=== PATIENT | male | born 1955 | race Caucasian/White ===

== ENCOUNTER 2017-06-28 12:52 | Inpatient (IN) | payer MEDICARE, OTHER ==
[~2017-06-28] VITALS: Ht 182.9 cm; Wt 142.0 kg
[2017-06-28] VITALS (10 sets, daily range): BP systolic 101–144; BP diastolic 72–97; PULSE 80–171; RESP 18–24; TEMP 98.4; O2SAT 91–98
[~2017-06-28 12:52] MED LIST: ALPR.25 PO; CHLO25CA PO; FOLI1TAB PO; HYDR-2951; METO50TA PO; MOBI15TA OR; TAB-TAB PO; THIA50CA PO
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
[2017-06-28] MEDS ORDERED: LORazepam 2 MG/ML VIAL IV PUSH ONE (13:30)
[2017-06-28] MEDS ORDERED: DILTIAZEM HCL 25 MG/5 ML VIAL IV ONE ×2 (13:30)
--- NOTE | 2017-06-28 13:38 | RADRPT ---
EXAM DATE/TIME: 06/28/2017 13:21 [facility] COMPARISON: No previous studies available for comparison. INDICATIONS : Shortness of breath. MEDICAL HISTORY : Hypertension. Myocardial infarction. SURGICAL HISTORY : Coronary artery stent. ENCOUNTER: Initial ACUITY: 1 day PAIN SCORE: 0/10 LOCATION: Bilateral chest FINDINGS: Portable AP view of the chest demonstrates cardiac silhouette size at the upper limits for normal lester cification of the aorta. There is a small right basilar pleural-parenchymal opacity. No pneumothorax is visualized. Bones and soft tissues demonstrate no acute finding. CONCLUSION: Small right pleural effusion with associated volume loss and/or consolidation at the right lung base. Cole Garcia MD on June 28, 2017 at 13:36 Board Certified Radiologist. This report was verified electronically.
[2017-06-28 14:10] LABS: AUTOMATED NEUTROPHIL # 10.4 TH/MM3 (1.8-7.7); BASOPHIL # 0.1 TH/MM3 (0-0.2); BASOPHIL % 0.9 % (0.0-2.0); EOSINOPHIL # 0.1 TH/MM3 (0-0.4); EOSINOPHIL % 0.6 % (0.0-4.0); HEMATOCRIT 43.4 % (39.0-51.0); HEMO FLAGS DIFF FINAL; LYMPH % 7.8 % (9.0-44.0); MEAN CELL VOLUME 85.2 FL (80.0-100.0); MEAN CORPUSCULAR HEMOGLOBIN 26.5 PG (27.0-34.0); MEAN CORPUSCULAR HGB CONC 31.1 % (32.0-36.0); MONO % 7.6 % (0.0-8.0); NEUT % 83.1 % (16.0-70.0); PLATELET COUNT 274 TH/MM3 (150-450); RED BLOOD COUNT 5.09 MIL/MM3 (4.50-5.90); RED CELL DISTRIBUTION WIDTH 17.5 % (11.6-17.2); WHITE BLOOD COUNT 12.5 TH/MM3 (4.0-11.0)
[2017-06-28] MEDS ORDERED: DILTIAZEM HCL 25 MG/5 ML VIAL IV PUSH PRN (14:15)
[2017-06-28 14:38] LABS: ALKALINE PHOSPHATASE 107 U/L (45-117); ALT (GPT) 21 U/L (12-78); ANION GAP 7 MEQ/L (5-15); AST (GOT) 25 U/L (15-37); BICARBONATE 26.4 MEQ/L (21.0-32.0); BLOOD UREA NITROGEN 14 MG/DL (7-18); CHLORIDE 107 MEQ/L (98-107); GLOMERULAR FILTRATION RATE 71 ML/MIN (>89); MAGNESIUM 2.3 MG/DL (1.5-2.5); POTASSIUM 4.4 MEQ/L (3.5-5.1); SODIUM (NA) 140 MEQ/L (136-145); TOTAL BILIRUBIN ADULT 0.5 MG/DL (0.2-1.0)
[2017-06-28 14:50] LABS: ALCOHOL LESS THAN 3 MG/DL (0-5); CREATINE KINASE 57 U/L (39-308)
[2017-06-28] MEDS: DILTIAZEM INJ 125 MG in SODIUM CHLORIDE 0.9% INJ 100 ML IV PRN ×4 (15:32→22:45)
[2017-06-28] MEDS ORDERED: VANCOMYCIN INJ 1,000 MG in SODIUM CHLOR 0.9% 250 ML INJ 250 ML IV ONE (16:00)
[2017-06-28] MEDS ORDERED: PIPERACIL-TAZO 3.375 GM PREMIX 50 ML IV ONE (16:00)
[2017-06-28] MEDS ORDERED: IOHEXOL 350 MG/ML 10 ML VIAL (for RAD DIAG) IVCONTRAST ONE (16:19)
--- NOTE | 2017-06-28 16:36 | RADRPT ---
EXAM DATE/TIME: 06/28/2017 15:58 [facility] COMPARISON: No previous studies available for comparison. INDICATIONS : Shortness of breath for a few days. IV CONTRAST: 73 cc Omnipaque 350 (iohexol) IV RADIATION DOSE: 23.90 CTDIvol (mGy) MEDICAL HISTORY : Myocardial infarction. Hypertension. SURGICAL HISTORY : cardiac stent placement ENCOUNTER: Initial ACUITY: 1 day PAIN SCALE: 0/10 LOCATION: Bilateral chest TECHNIQUE: Volumetric scanning of the chest was performed using a pulmonary embolism protocol MIP images were re constructed. Using automated exposure control and adjustment of the mA and/or kV according to patien t size, radiation dose was kept as low as reasonably achievable to obtain optimal diagnostic quality images. DICOM format image data is available electronically for review and comparison. Follow-up recommendations for detected pulmonary nodules are based at a minimum on nodule size and pa tient risk factors according to Fleischner Society Guidelines. FINDINGS: The examination is of good diagnostic quality. No pulmonary embolus is identified. There is a large right pleural effusion. There is consolidation of the right lower lobe. The left aye g is clear. The heart is normal in size. There is no significant hilar or mediastinal adenopathy. No paracardial effusion is evident. The visualized portions of upper abdomen demonstrate a small amount of ascites adjacent to the latera l margin of the liver. The visualized bony structures are grossly intact. CONCLUSION: 1. No pulmonary embolus identified. 2. Large right-sided pleural effusion with consolidation of the right lower lobe. Srikanth Ware MD on June 28, 2017 at 16:32 Board Certified Radiologist. This report was verified electronically.
[2017-06-28] MEDS ORDERED: THIAMINE INJ 100 MG in SODIUM CHLORIDE 0.9% INJ 100 ML IV ONE (17:00)
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
[2017-06-28] MEDS ORDERED: LACTULOSE SYRUP 20 GM/30 ML CUP PO PRN (17:15)
[2017-06-28] MEDS ORDERED: SODIUM CHLORIDE 0.9% FLUSH 10 ML FLUSH IV FLUSH PRN (17:15)
[2017-06-28] MEDS ORDERED: ONDANSETRON HCL 4 MG/2 ML VIAL IVP PRN (17:15)
[2017-06-28] MEDS ORDERED: BISACODYL 10 MG SUPP RECTAL PRN (17:15)
[2017-06-28] MEDS ORDERED: ACETAMINOPHEN 325 MG TAB PO PRN (17:15)
[2017-06-28] MEDS ORDERED: NALOXONE HCL 0.4 MG/ML AMP IV PUSH PRN (17:15)
[2017-06-28] MEDS ORDERED: SENNOSIDES 8.6 MG TAB PO PRN (17:15)
[2017-06-28] MEDS ORDERED: MAGNESIUM HYDROXIDE SUSP 30 ML CUP PO PRN (17:15)
[2017-06-28] MEDS ORDERED: SODIUM CHLOR 0.9% 1000 ML INJ 1,000 ML IV SCH (18:00)
[2017-06-28] MEDS ORDERED: METOPROLOL TARTRATE 25 MG TAB PO SCH (19:00)
[2017-06-28] MEDS: RESP: IPRATROPIUM 0.5 MG/2.5 ML NEB NEB SCH (19:25)
[2017-06-28] MEDS: ENOXAPARIN SODIUM 150 MG/ML SYRINGE SQ SCH (19:58)
[2017-06-28 20:11] LABS: BLOOD, URINE NEG (NEG); COMMENT (UR) CULT NOT INDICATED; CULTURE IF INDICATED CULT NOT INDICATED; GLUCOSE,URINE NEG (NEG); KETONE, URINE TRACE mg/dL (NEG); MUCUS URINE FEW /lpf (OCC); NITRITE,URINE NEG (NEG); URINE COLOR YELLOW (YELLW/STRAW)
[2017-06-28 20:38] LABS: CREATINE KINASE 64 U/L (39-308)
[2017-06-28] MEDS: SODIUM CHLORIDE 0.9% FLUSH 10 ML FLUSH IV FLUSH SCH (21:00)
[2017-06-28] MEDS: guaiFENesin E.R. 600 MG TAB PO SCH (22:41)
[2017-06-28] MEDS: DOCUSATE SODIUM 50 MG/SENNA 8.6 MG TAB PO SCH (22:41)
[2017-06-29] VITALS (30 sets, daily range): BP systolic 101–124; BP diastolic 58–97; PULSE 66–121; RESP 20; TEMP 97.6–98.8; O2SAT 96–98
[2017-06-29] MEDS: RESP: IPRATROPIUM 0.5 MG/2.5 ML NEB NEB SCH ×5 (05:21→19:49)
[2017-06-29] MEDS: ENOXAPARIN SODIUM 150 MG/ML SYRINGE SQ SCH ×2 (06:00→17:39)
[2017-06-29 06:48] LABS: AUTOMATED NEUTROPHIL # 10.1 TH/MM3 (1.8-7.7); BASOPHIL # 0.1 TH/MM3 (0-0.2); BASOPHIL % 0.6 % (0.0-2.0); EOSINOPHIL # 0.1 TH/MM3 (0-0.4); EOSINOPHIL % 0.7 % (0.0-4.0); HEMATOCRIT 38.3 % (39.0-51.0); HEMO FLAGS DIFF FINAL; LYMPH % 9.2 % (9.0-44.0); LYMPHOCYTE # 1.1 TH/MM3 (1.0-4.8); MEAN CORPUSCULAR HEMOGLOBIN 26.3 PG (27.0-34.0); MEAN CORPUSCULAR HGB CONC 30.9 % (32.0-36.0); MONO % 8.3 % (0.0-8.0); NEUT % 81.2 % (16.0-70.0); PLATELET COUNT 256 TH/MM3 (150-450); RED BLOOD COUNT 4.51 MIL/MM3 (4.50-5.90); RED CELL DISTRIBUTION WIDTH 17.5 % (11.6-17.2); WHITE BLOOD COUNT 12.4 TH/MM3 (4.0-11.0)
[2017-06-29 06:59] LABS: INTERNATIONAL NORMALIZED RATIO 1.1 RATIO; PROTHROMBIN TIME - PATIENT 12.1 SEC (9.8-11.6)
[2017-06-29 07:02] LABS: ALT (GPT) 20 U/L (12-78); ANION GAP 6 MEQ/L (5-15); AST (GOT) 15 U/L (15-37); BICARBONATE 27.4 MEQ/L (21.0-32.0); BLOOD UREA NITROGEN 12 MG/DL (7-18); CHLORIDE 107 MEQ/L (98-107); GLOMERULAR FILTRATION RATE 81 ML/MIN (>89); POTASSIUM 3.8 MEQ/L (3.5-5.1); SODIUM (NA) 140 MEQ/L (136-145)
[2017-06-29 07:05] LABS: ALKALINE PHOSPHATASE 92 U/L (45-117); TOTAL BILIRUBIN ADULT 0.5 MG/DL (0.2-1.0)
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
--- NOTE | 2017-06-29 08:30 | MB ---
cc: BLAIR KRISHNAMURTHY DATE OF CONSULTATION 06/28/2017 HISTORY OF PRESENT ILLNESS Mr. Flanagan is a 62-year-old white male with a history of coronary artery disease, myocardial function and hypertension. He presented with shortness of breath and bilateral extremity edema. He has not had any chest pain. He was found to have atrial fibrillation with rapid ventricular response. He has been drinking alcohol heavily until several days ago. PAST MEDICAL HISTORY Positive for - 1. Coronary artery disease with myocardial infarction in 1995. 2. Hypertension. 3. Depression, anxiety. PAST SURGICAL HISTORY Tonsillectomy. MEDICATIONS None. ALLERGIES CEFUROXIME. SOCIAL HISTORY The patient is a smoker. He drinks alcohol heavily. FAMILY HISTORY Negative for heart disease. REVIEW OF SYSTEMS Otherwise negative. PHYSICAL EXAMINATION VITAL SIGNS: Blood pressure 144/95, pulse 132 and irregular. HEENT: Negative. NECK: 2+ carotid upstrokes. No bruits. LUNGS: Clear. Distant tones. HEART: Irregularly irregular, tachycardic. No murmur, gallop or rub. ABDOMEN: Soft. No bruits. EXTREMITIES: 2+ pitting edema. 1+ distal pulses. NEUROLOGIC: Grossly nonfocal. The patient is disheveled and a poor historian. EKG Reviewed and showed atrial fibrillation with rapid ventricular response and no acute changes. LABS Hemoglobin 13.5, potassium 4.4, creatinine 1.1, AST and ALT normal. CK 5764. Troponin 0.02. BNP 418. TSH 1.26. DIAGNOSIS 1. Atrial fibrillation with rapid ventricular response. 2. Respirations efficiency. 3. Morbid obesity. 4. Possible pneumonia. DISPOSITION Mr. Flanagan will continue rate control with IV diltiazem. We will also add beta-jocelyne and titrate and titrate as necessary. The patient was strongly encouraged to quit drinking alcohol which is likely the reason of his atrial fibrillation. He will be monitored on telemetry. I will follow him for Cardiology during his hospitalization. Blair Krishnamurthy MD OQ/SSB /9:45 PM /8:11 AM
[2017-06-29] MEDS: SODIUM CHLORIDE 0.9% FLUSH 10 ML FLUSH IV FLUSH SCH ×2 (09:00→21:00)
[2017-06-29] MEDS: METOPROLOL TARTRATE 25 MG TAB PO SCH ×2 (09:13→19:52)
[2017-06-29] MEDS: guaiFENesin E.R. 600 MG TAB PO SCH ×2 (09:13→21:00)
[2017-06-29] MEDS: DOCUSATE SODIUM 50 MG/SENNA 8.6 MG TAB PO SCH ×2 (09:13→21:00)
--- NOTE | 2017-06-29 12:56 | HHI.PR ---
Subjective Remarks This is a pleasant 62 y/o Male who complained of Shortness of breath, swelling on both legs, He denies cough, chest pain, abdominal pain, nausea or vomiting, fevers or chills, recent travel. He reports a history of "swollen about in the 1970s which limited by body for several years before I eventually killed with alcohol." Beyond that he reports a history of osteoporosis. He is a very poor historian. Per chart review the patient has been seen here in the past primarily for alcohol-related hallucinations, delirium tremens. He reports that he has not had any alcohol in the past few days-he believes that he had a bottle of wine just prior to eating a [employer] 3 days ago. He has no primary care physician. He has no other complaints at this time. seen in Emergency room in the presence of nurse, he is disheveled and very poor historian. 06/29: Seen in his bedroom stable no nausea, vomit or diarrhea, discussed with nurse Miss Frye, manpower development specialist manager following the patient refused Thoracentesis. Objective Vital Signs Date Time Temp Pulse Resp B/P (MAP) Pulse Ox O2 Delivery O2 Flow Rate FiO2 06/29/17 12:00 99 06/29/17 11:26 94 06/29/17 11:15 98.6 120 20 118/92 (101) 96 06/29/17 11:00 107 06/29/17 10:00 110 06/29/17 09:00 121 06/29/17 08:00 98.5 120 20 124/97 (106) 96 06/29/17 08:00 121 06/29/17 07:00 116 06/29/17 06:00 116 06/29/17 05:00 118 06/29/17 04:00 110 06/29/17 03:30 98.3 103 20 118/73 (88) 96 06/29/17 03:00 102 06/29/17 02:00 98 06/29/17 01:00 96 06/29/17 00:30 95/69 06/29/17 00:00 90 06/29/17 00:00 91 06/29/17 00:00 91 88/68 06/28/17 23:00 90 06/28/17 23:00 88 06/28/17 23:00 88 20 111/75 (87) 96 06/28/17 22:45 90 98/71 06/28/17 22:42 90 98/71 06/28/17 22:02 80 22 101/72 (82) 91 Nasal Cannula 3.00 06/28/17 20:29 100 22 118/81 (93) 91 Nasal Cannula 3.00 06/28/17 19:44 97 Nasal Cannula 06/28/17 19:44 104 22 104/80 (88) 98 Nasal Cannula 06/28/17 19:28 95 Nasal Cannula 3.00 06/28/17 18:26 132 126/86 06/28/17 17:16 95 Nasal Cannula 3.00 06/28/17 17:12 116 18 144/95 (111) 95 Nasal Cannula 3.00 06/28/17 17:12 122 144/95 06/28/17 15:54 104 142/94 06/28/17 15:32 99 140/97 06/28/17 15:08 128 22 140/97 (111) 98 Nasal Cannula 2.00 06/28/17 13:35 98.4 133 22 131/91 (104) 96 Nasal Cannula 2.00 06/28/17 13:10 98.4 171 24 136/90 (105) 94 I/O 06/28/17 06/28/17 06/28/17 06/29/17 06/29/17 06/29/17 07:00 15:00 23:00 07:00 15:00 23:00 Intake Total 250 ml 480 ml Output Total 550 ml Balance 250 ml -70 ml Intake Oral 480 ml IV Total 250 ml Output Urine Total 550 ml Result Diagram: 06/29/17 0550 06/29/17 [address] Angiography 06/28/17 1327 Signed Impressions: Service Date/Time: Wednesday, June 28, 2017 15:58 - CONCLUSION: 1. No pulmonary embolus identified. 2. Large right-sided pleural effusion with consolidation of the right lower lobe. Srikanth Ware MD Chest X-Ray 06/28/17 1316 Signed Impressions: Service Date/Time: Wednesday, June 28, 2017 13:21 - CONCLUSION: Small right pleural effusion with associated volume loss and/or consolidation at the right lung base. Cole Garcia MD Procedures None Other Results Laboratory Tests Test 06/28/17 13:25 06/28/17 20:03 06/29/17 03:50 06/29/17 05:50 Blood Urea Nitrogen 14 MG/DL 12 MG/DL Creatinine 1.06 MG/DL 0.94 MG/DL Random Glucose 101 MG/DL 84 MG/DL Total Protein 6.9 GM/DL 6.0 GM/DL Albumin 3.2 GM/DL 2.8 GM/DL Calcium Level 8.8 MG/DL 8.4 MG/DL Magnesium Level 2.3 MG/DL Alkaline Phosphatase 107 U/L 92 U/L Aspartate Amino Transf (AST/SGOT) 25 U/L 15 U/L Alanine Aminotransferase (ALT/SGPT) 21 U/L 20 U/L Total Bilirubin 0.5 MG/DL 0.5 MG/DL Sodium Level 140 MEQ/L 140 MEQ/L Potassium Level 4.4 MEQ/L 3.8 MEQ/L Chloride Level 107 MEQ/L 107 MEQ/L Carbon Dioxide Level 26.4 MEQ/L 27.4 MEQ/L B-Type Natriuretic Peptide 418 PG/ML Lipase 152 U/L Thyroid Stimulating Hormone 3rd Gen 1.260 uIU/ML Ethyl Alcohol Level LESS THAN 3 MG/DL Urine Color YELLOW Urine Turbidity CLEAR Urine pH 5.0 Urine Specific [place] 1.039 Urine Protein NEG mg/dL Urine Glucose (UA) NEG mg/dL Urine Ketones TRACE mg/dL Urine Occult Blood NEG Urine Nitrite NEG Urine Bilirubin NEG Urine Urobilinogen LESS THAN 2.0 MG/DL Urine Leukocyte Esterase NEG Urine RBC 1 /hpf Urine WBC 1 /hpf Urine Mucus FEW /lpf Microscopic Urinalysis Comment CULT NOT INDICATED Urine Opiates Screen NEG Urine Barbiturates Screen NEG Urine Amphetamines Screen NEG Urine Benzodiazepines Screen NEG Urine Cocaine Screen NEG Urine Cannabinoids Screen NEG Total Creatine Kinase 57 U/L Troponin I 0.02 NG/ML White Blood Count 12.4 TH/MM3 Red Blood Count 4.51 MIL/MM3 Hemoglobin 11.8 GM/DL Hematocrit 38.3 % Mean Corpuscular Volume 85.0 FL Mean Corpuscular Hemoglobin 26.3 PG Mean Corpuscular Hemoglobin Concent 30.9 % Red Cell Distribution Width 17.5 % Platelet Count 256 TH/MM3 Mean Platelet Volume 9.0 FL Neutrophils (%) (Auto) 81.2 % Lymphocytes (%) (Auto) 9.2 % Monocytes (%) (Auto) 8.3 % Eosinophils (%) (Auto) 0.7 % Basophils (%) (Auto) 0.6 % Neutrophils # (Auto) 10.1 TH/MM3 Lymphocytes # (Auto) 1.1 TH/MM3 Monocytes # (Auto) 1.0 TH/MM3 Eosinophils # (Auto) 0.1 TH/MM3 Basophils # (Auto) 0.1 TH/MM3 CBC Comment DIFF FINAL Differential Comment Anion Gap 6 MEQ/L Estimat Glomerular Filtration Rate 81 ML/MIN Test 06/29/17 06:20 Prothrombin Time 12.1 SEC Prothromb Time International Ratio 1.1 RATIO Objective Remarks GENERAL: This is a disheveled appearing male in no acute distress. SKIN: Warm and dry. Some excoriation of the skin is noted on the abdominal wall in the lower extremities. HEAD: Atraumatic. Normocephalic. EYES: Pupils equal and round. No scleral icterus. No injection or drainage. ENT: No nasal bleeding or discharge. Mucous membranes pink and moist. NECK: Trachea midline. No JVD. CARDIOVASCULAR: Irregular rate, rhythm, tachycardic. No murmur. RESPIRATORY: No accessory muscle use. Clear to auscultation. Breath sounds equal bilaterally. GASTROINTESTINAL: Abdomen soft, non-tender, nondistended. Hepatic and splenic margins not palpable. Pannus cellulitis. MUSCULOSKELETAL: No obvious deformities. 2+ pitting edema lower extremities bilaterally. NEUROLOGICAL: Awake and alert. No obvious cranial nerve deficits. Motor grossly within normal limits. Normal speech. PSYCHIATRIC: Insight and judgment appear diminished. Medications and IVs Current Medications Medications (Trade) Dose Ordered Sig/Zeinab Route Start Time Stop Time Status Last Admin (Cardizem Inj) 46 mg ONCE PRN IV PUSH 06/28/17 14:15 06/28/17 15:08 Diltiazem HCl 125 mg/Sodium Chloride 125 ml @ 5 mls/hr TITRATE PRN IV 06/28/17 14:15 06/28/17 22:45 (Lovenox Inj) 130 mg Q12H SQ 06/28/17 18:00 06/29/17 06:00 (NS Flush) 2 ml UNSCH PRN IV FLUSH 06/28/17 17:15 (NS Flush) 2 ml BID IV FLUSH 06/28/17 21:00 06/29/17 09:00 (Tylenol) 650 mg Q4H PRN PO 06/28/17 17:15 (Zofran Inj) 4 mg Q6H PRN IVP 06/28/17 17:15 (Narcan Inj) 0.4 mg UNSCH PRN IV PUSH 06/28/17 17:15 (Mehnaz-Colace) 1 tab BID PO 06/28/17 21:00 06/29/17 09:13 (Milk Of Magnesia Liq) 30 ml Q12H PRN PO 06/28/17 17:15 (Senokot) 17.2 mg Q12H PRN PO 06/28/17 17:15 (Dulcolax Supp) 10 mg DAILY PRN RECTAL 06/28/17 17:15 (Lactulose Liq) 30 ml DAILY PRN PO 06/28/17 17:15 (Atrovent Neb) 0.5 mg Q4HR NEB NEB 06/28/17 20:00 06/29/17 05:21 (Mucinex Er) 600 mg BID PO 06/28/17 21:00 06/29/17 09:13 (Lopressor) 25 mg Q12H PO 06/29/17 08:00 06/29/17 09:13 A/P Assessment and Plan 1. Atrial Fibrillation with RVR status post bolus of Diltiazem two time and continue drip, Cardiology following added Metoprolol and following, asked for Echocardiogram and started on Lovenox, was encourage the patient to stop drinking alcohol, 2. Obesity strongly recommended diet and exercise 3. Acute on chronic respiratory insufficiency, multifactorial secondary to Atrial Fibrillation with RVR, probable early onset of COPD, Obesity hypoventilation syndrome, on Bronchodilator, Mucolytic and incentive spirometry. Pneumonia, the patient refused Thoracentesis, will continue present care, manpower development specialist manager following. following cultures. 4. Edema on both extremities. 5. Pneumonia the patient has Right sided Pleural effusion and consolidation will get manpower development specialist manager consult. giving Vancomycin and Zosyn he has also Pannus Cellulitis and following, follow blood cultures. sputum culture. Legionella and Pneumococcal antigen. DVT prophylaxis with Lovenox. GI protection with Famotidine. Code Status Full Code. Discussed Condition With Patient and Nurse Miss Frye, all questions answered to the best of my abilities. Discharge Planning Once cleared by specialists. Lex Napier MD Jun 29, 2017 12:56
--- NOTE | 2017-06-29 13:00 | PD.CARD.PN ---
Subjective Subjective Remarks C/o SOB, no CP Objective Medications Active Medications Acetaminophen (Tylenol) 650 mg Q4H PRN PO; Start 06/28/17 at 17:15 Bisacodyl (Dulcolax Supp) 10 mg DAILY PRN RECTAL; Start 06/28/17 at 17:15 Diltiazem HCl (Cardizem Inj) 10 mg ONCE ONCE IV; Start 06/28/17 at 13:30; Stop 06/28/17 at 13:30; Status DC Diltiazem HCl (Cardizem Inj) 20 mg ONCE ONCE IV Last administered on 06/28/17 14:01; Admin Dose 20 MG; Start 06/28/17 at 13:30; Stop 06/28/17 at 13:32; Status DC Diltiazem HCl (Cardizem Inj) 46 mg ONCE PRN IV PUSH Last administered on 15:08; Admin Dose 46 MG; Start 06/28/17 at 14:15 Diltiazem HCl 125 mg/Sodium Chloride 125 ml @ 5 mls/hr TITRATE PRN IV Last administered on 06/28/17 22:45; Admin Dose 15 MLS/HR; Start 06/28/17 at 14:15 Enoxaparin Sodium (Lovenox Inj) 130 mg Q12H SQ Last administered on 06/29/17 06 :00; Admin Dose 130 MG; Start 06/28/17 at 18:00 Guaifenesin (Mucinex Er) 600 mg BID PO Last administered on 06/29/17 09:13; Admin Dose 600 MG; Start 06/28/17 at 21:00 Iohexol (Omnipaque 350 Inj) 73 ml STK-MED ONCE IVCONTRAST Last administered on 16:19; Admin Dose 73 ML; Start 06/28/17 at 16:19; Stop 06/28/17 at 16: 20; Status DC Ipratropium [place] (Atrovent Neb) 0.5 mg Q4HR NEB NEB Last administered on 05:21; Admin Dose 0.5 MG; Start 06/28/17 at 20:00 Lactulose (Lactulose Liq) 30 ml DAILY PRN PO; Start 06/28/17 at 17:15 Lorazepam (Ativan Inj) 2 mg ONCE ONCE IV PUSH Last administered on 06/28/17 14 :02; Admin Dose 2 MG; Start 06/28/17 at 13:30; Stop 06/28/17 at 13:31; Status DC Magnesium Hydroxide (Milk Of Magnesia Liq) 30 ml Q12H PRN PO; Start 06/28/17 at 17:15 Metoprolol Tartrate (Lopressor) 25 mg Q12H PO Last administered on 06/29/17 09: 13; Admin Dose 25 MG; Start 06/29/17 at 08:00 Metoprolol Tartrate (Lopressor) 25 mg Q12HR PO Last administered on 06/28/17 19 :59; Admin Dose 25 MG; Start 06/28/17 at 19:00; Stop 06/28/17 at 20:00; Status DC Naloxone HCl (Narcan Inj) 0.4 mg UNSCH PRN IV PUSH; Start 06/28/17 at 17:15 Ondansetron HCl (Zofran Inj) 4 mg Q6H PRN IVP; Start 06/28/17 at 17:15 Piperacillin Sod/ Tazobactam Sod 50 ml @ 100 mls/hr ONCE ONCE IV Last administered on 06/28/17 19:41; Admin Dose 100 MLS/HR; Start 06/28/17 at 16:00 ; Stop 06/28/17 at 16:29; Status DC Senna/Docusate Sodium (Mehnaz-Colace) 1 tab BID PO Last administered on 06/29/17 09:13; Admin Dose 1 TAB; Start 06/28/17 at 21:00 Sennosides (Senokot) 17.2 mg Q12H PRN PO; Start 06/28/17 at 17:15 Sodium Chloride 1,000 ml @ 83 mls/hr Q12H3M IV; Start 06/28/17 at 18:00; Stop 06/28/17 at 18:47; Status DC Sodium Chloride (NS Flush) 2 ml BID IV FLUSH Last administered on 06/29/17 09: 00; Admin Dose 2 ML; Start 06/28/17 at 21:00 Sodium Chloride (NS Flush) 2 ml UNSCH PRN IV FLUSH; Start 06/28/17 at 17:15 Thiamine HCl 100 mg/Sodium Chloride 101 ml @ 101 mls/hr ONCE ONCE IV Last administered on 9/18/17at 19:58; Admin Dose 101 MLS/HR; Start 06/28/17 at 17:00 ; Stop 06/28/17 at 17:59; Status DC Vancomycin HCl 1000 mg/Sodium Chloride 250 ml @ 250 mls/hr ONCE ONCE IV Last administered on 06/28/17t 17:06; Admin Dose 250 MLS/HR; Start 06/28/17 at 16:00 ; Stop 06/28/17 at 16:59; Status DC Vital Signs / I&O Vital Signs Date Time Temp Pulse Resp B/P (MAP) Pulse Ox O2 Delivery O2 Flow Rate FiO2 06/29/17 12:00 99 06/29/17 11:26 94 06/29/17 11:15 98.6 120 20 118/92 (101) 96 06/29/17 11:00 107 06/29/17 10:00 110 06/29/17 09:00 121 06/29/17 08:00 98.5 120 20 124/97 (106) 96 06/29/17 08:00 121 06/29/17 07:00 116 06/29/17 06:00 116 06/29/17 05:00 118 06/29/17 04:00 110 06/29/17 03:30 98.3 103 20 118/73 (88) 96 06/29/17 03:00 102 06/29/17 02:00 98 06/29/17 01:00 96 06/29/17 00:30 95/69 06/29/17 00:00 90 06/29/17 00:00 91 06/29/17 00:00 91 88/68 06/28/17 23:00 90 06/28/17 23:00 88 06/28/17 23:00 88 20 111/75 (87) 96 06/28/17 22:45 90 98/71 06/28/17 22:42 90 98/71 06/28/17 22:02 80 22 101/72 (82) 91 Nasal Cannula 3.00 06/28/17 20:29 100 22 118/81 (93) 91 Nasal Cannula 3.00 06/28/17 19:44 97 Nasal Cannula 06/28/17 19:44 104 22 104/80 (88) 98 Nasal Cannula 06/28/17 19:28 95 Nasal Cannula 3.00 06/28/17 18:26 132 126/86 06/28/17 17:16 95 Nasal Cannula 3.00 06/28/17 17:12 116 18 144/95 (111) 95 Nasal Cannula 3.00 06/28/17 17:12 122 144/95 06/28/17 15:54 104 142/94 06/28/17 15:32 99 140/97 06/28/17 15:08 128 22 140/97 (111) 98 Nasal Cannula 2.00 06/28/17 13:35 98.4 133 22 131/91 (104) 96 Nasal Cannula 2.00 06/28/17 13:10 98.4 171 24 136/90 (105) 94 I/O 06/28/17 06/28/17 06/28/17 06/29/17 06/29/17 06/29/17 07:00 15:00 23:00 07:00 15:00 23:00 Intake Total 250 ml 480 ml Output Total 550 ml Balance 250 ml -70 ml Intake Oral 480 ml IV Total 250 ml Output Urine Total 550 ml Physical Exam GENERAL: Irreg, tachy, disheveled SKIN: Warm and dry. HEAD: Normocephalic. EYES: No scleral icterus. No injection or drainage. NECK: Supple, trachea midline. No JVD or lymphadenopathy. CARDIOVASCULAR: Irreg, without murmurs, gallops, or rubs. RESPIRATORY: Breath sounds equal bilaterally. Few rhonchi, distant BS GASTROINTESTINAL: Abdomen soft, non-tender, nondistended. MUSCULOSKELETAL: No cyanosis, bilat LE edema. Laboratory Laboratory Tests Test 06/28/17 13:25 06/28/17 20:03 06/29/17 03:50 06/29/17 05:50 White Blood Count 12.5 TH/MM3 12.4 TH/MM3 Red Blood Count 5.09 MIL/MM3 4.51 MIL/MM3 Hemoglobin 13.5 GM/DL 11.8 GM/DL Hematocrit 43.4 % 38.3 % Mean Corpuscular Volume 85.2 FL 85.0 FL Mean Corpuscular Hemoglobin 26.5 PG 26.3 PG Mean Corpuscular Hemoglobin Concent 31.1 % 30.9 % Red Cell Distribution Width 17.5 % 17.5 % Platelet Count 274 TH/MM3 256 TH/MM3 Mean Platelet Volume 9.5 FL 9.0 FL Neutrophils (%) (Auto) 83.1 % 81.2 % Lymphocytes (%) (Auto) 7.8 % 9.2 % Monocytes (%) (Auto) 7.6 % 8.3 % Eosinophils (%) (Auto) 0.6 % 0.7 % Basophils (%) (Auto) 0.9 % 0.6 % Neutrophils # (Auto) 10.4 TH/MM3 10.1 TH/MM3 Lymphocytes # (Auto) 1.0 TH/MM3 1.1 TH/MM3 Monocytes # (Auto) 1.0 TH/MM3 1.0 TH/MM3 Eosinophils # (Auto) 0.1 TH/MM3 0.1 TH/MM3 Basophils # (Auto) 0.1 TH/MM3 0.1 TH/MM3 CBC Comment DIFF FINAL DIFF FINAL Differential Comment Blood Urea Nitrogen 14 MG/DL 12 MG/DL Creatinine 1.06 MG/DL 0.94 MG/DL Random Glucose 101 MG/DL 84 MG/DL Total Protein 6.9 GM/DL 6.0 GM/DL Albumin 3.2 GM/DL 2.8 GM/DL Calcium Level 8.8 MG/DL 8.4 MG/DL Magnesium Level 2.3 MG/DL Alkaline Phosphatase 107 U/L 92 U/L Aspartate Amino Transf (AST/SGOT) 25 U/L 15 U/L Alanine Aminotransferase (ALT/SGPT) 21 U/L 20 U/L Total Bilirubin 0.5 MG/DL 0.5 MG/DL Sodium Level 140 MEQ/L 140 MEQ/L Potassium Level 4.4 MEQ/L 3.8 MEQ/L Chloride Level 107 MEQ/L 107 MEQ/L Carbon Dioxide Level 26.4 MEQ/L 27.4 MEQ/L Anion Gap 7 MEQ/L 6 MEQ/L Estimat Glomerular Filtration Rate 71 ML/MIN 81 ML/MIN Total Creatine Kinase 57 U/L 64 U/L 57 U/L Troponin I 0.02 NG/ML LESS THAN 0.02 NG/ML 0.02 NG/ML B-Type Natriuretic Peptide 418 PG/ML Lipase 152 U/L Thyroid Stimulating Hormone 3rd Gen 1.260 uIU/ML Ethyl Alcohol Level LESS THAN 3 MG/DL Urine Color YELLOW Urine Turbidity CLEAR Urine pH 5.0 Urine Specific [place] 1.039 Urine Protein NEG mg/dL Urine Glucose (UA) NEG mg/dL Urine Ketones TRACE mg/dL Urine Occult Blood NEG Urine Nitrite NEG Urine Bilirubin NEG Urine Urobilinogen LESS THAN 2.0 MG/DL Urine Leukocyte Esterase NEG Urine RBC 1 /hpf Urine WBC 1 /hpf Urine Mucus FEW /lpf Microscopic Urinalysis Comment CULT NOT INDICATED Urine Opiates Screen NEG Urine Barbiturates Screen NEG Urine Amphetamines Screen NEG Urine Benzodiazepines Screen NEG Urine Cocaine Screen NEG Urine Cannabinoids Screen NEG Test 06/29/17 06:20 Prothrombin Time 12.1 SEC Prothromb Time International Ratio 1.1 RATIO Assessment and Plan Problem List: (1) Morbid obesity ICD Codes: E66.01 - Morbid (severe) obesity due to excess calories (2) Atrial fibrillation with RVR ICD Codes: I48.91 - Unspecified atrial fibrillation Status: Acute (3) Pleural effusion ICD Codes: J90 - Pleural effusion, not elsewhere classified Status: Acute (4) ETOH abuse ICD Codes: F10.10 - Alcohol abuse, uncomplicated Assessment and Plan Continue and titrate rate control of AF. Check echo to evaluate LV fx. Counseled to stop ETOH use. Increase activity. Pulm eval in progress. Blair Krishnamurthy MD Jun 29, 2017 13:00
--- NOTE | 2017-06-29 14:48 | EKG ---
Date Performed: 06/28/2017 Time Performed: 13:20:56 PTAGE: 62 years EKG: ATRIAL FIBRILLATION WITH RAPID VENTRICULAR RESPONSE ABNORMAL RHYTHM ECG Compared to prior t racing no significant change PREVIOUS TRACING : 11/18/11 DOCTOR: Jose Andrews Interpretating Date/Time 06/29/2017 14:46:20
--- NOTE | 2017-06-29 16:00 | ECHRPT ---
Indication: a fib/flutter CONCLUSIONS Poor echocardiograophic windows The left ventricular systolic function reduced with an estimated ejection fraction in the range of 3 0-35%. Global hypokinesis Normal left ventricular size. Mild concentric left ventricular hypertrophy. Mild mitral valve regurgitation. No aortic valve regurgitation. There is mild tricuspid valve regurgitation. The estimated pulmonary arterial pressure is 41.4 mmHg. BP: / HR: Rhythm: MEASUREMENTS (Male / Female) Normal Values Technical Quality:Very technically difficult study 2D ECHO LV Diastolic Diameter PLAX 5.1 cm 4.2 - 5.9 / 3.9 - 5.3 cm LV Systolic Diameter PLAX 4.6 cm IVS Diastolic Thickness 1.4 cm 0.6 - 1.0 / 0.6 - 0.9 cm LVPW Diastolic Thickness 1.2 cm 0.6 - 1.0 / 0.6 - 0.9 cm LV Relative Wall Thickness 0.5 RV Internal Dim ED PLAX 3.9 cm M-MODE Aortic Root Diameter MM 3.7 cm LA Systolic Diameter MM 5.5 cm LA Ao Ratio MM 1.5 AV Cusp Separation MM 2.1 cm DOPPLER LV E' Lateral Velocity 8.8 cm/s LV E' Septal Velocity 6.9 cm/s TR Peak Velocity 280.0 cm/s TR Peak Gradient 31.4 mmHg Right Atrial Pressure 10.0 mmHg Pulmonary Artery Systolic Pressu 41.4 mmHg Right Ventricular Systolic Press 41.4 mmHg FINDINGS LEFT VENTRICLE The left ventricular systolic function is severely reduced with an estimated ejection fraction in th e range of 30-35%. Normal left ventricular size. Mild concentric left ventricular hypertrophy. RIGHT VENTRICLE Normal right ventricular size and systolic function. LEFT ATRIUM The left atrial size is normal. RIGHT ATRIUM The right atrial size is normal. ATRIAL SEPTUM Normal atrial septal thickness without atrial level shunting by limited color doppler interrogation. AORTA The aortic root and proximal ascending aorta are normal in size on limited imaging. MITRAL VALVE Structurally normal mitral valve. Mild mitral valve regurgitation. AORTIC VALVE Trileaflet aortic valve. No aortic valve regurgitation. TRICUSPID VALVE Structurally normal tricuspid valve. There is mild tricuspid valve regurgitation. The estimated pulmonary arterial pressure is 41.4 mmHg. PULMONARY VALVE No pulmonary valve regurgitation or stenosis. VESSELS The inferior vena cava is normal in size. PERICARDIUM No pericardial effusion. Jerson Ba MD (Electronically Signed) Final Date:29 June 2017 15:59
[2017-06-29] MEDS: DILTIAZEM INJ 125 MG in SODIUM CHLORIDE 0.9% INJ 100 ML IV PRN (17:40)
--- NOTE | 2017-06-29 20:04 | HHI.PR ---
Subjective Remarks 62 YO Obese WM mild SOB " My body is poisoned, nothing wrong with my Heart" Echo EF 30-35 % RVSP 41 Pt declines TC Objective Vital Signs Vital Signs Date Time Temp Pulse Resp B/P (MAP) Pulse Ox O2 Delivery O2 Flow Rate FiO2 06/29/17 18:00 106 06/29/17 17:40 102 112/64 06/29/17 17:00 109 06/29/17 16:00 106 06/29/17 15:43 98.8 120 20 112/94 (100) 96 06/29/17 15:00 108 06/29/17 14:00 98 06/29/17 13:00 95 06/29/17 12:00 99 06/29/17 11:26 94 06/29/17 11:15 98.6 120 20 118/92 (101) 96 06/29/17 11:00 107 06/29/17 10:00 110 06/29/17 09:00 121 06/29/17 08:00 98.5 120 20 124/97 (106) 96 06/29/17 08:00 121 06/29/17 07:00 116 06/29/17 06:00 116 06/29/17 05:00 118 06/29/17 04:00 110 06/29/17 03:30 98.3 103 20 118/73 (88) 96 06/29/17 03:00 102 06/29/17 02:00 98 06/29/17 01:00 96 06/29/17 00:30 95/69 06/29/17 00:00 90 06/29/17 00:00 91 06/29/17 00:00 91 88/68 06/28/17 23:00 90 06/28/17 23:00 88 06/28/17 23:00 88 20 111/75 (87) 96 06/28/17 22:45 90 98/71 06/28/17 22:42 90 98/71 06/28/17 22:02 80 22 101/72 (82) 91 Nasal Cannula 3.00 06/28/17 20:29 100 22 118/81 (93) 91 Nasal Cannula 3.00 I/O 06/28/17 06/28/17 06/28/17 06/29/17 06/29/17 06/29/17 07:00 15:00 23:00 07:00 15:00 23:00 Intake Total 250 ml 480 ml 1087 ml Output Total 550 ml 650 ml Balance 250 ml -70 ml 437 ml Intake Oral 480 ml 975 ml IV Total 250 ml 112 ml Output Urine Total 550 ml 650 ml # Bowel Movements 0 Result Diagram: 06/29/1754906/29/17549 Objective Remarks GENERAL: Obese Wm mild sob SKIN: Warm and dry. HEAD: Normocephalic. EYES: No scleral icterus. No injection or drainage. NECK: Supple, trachea midline. No JVD or lymphadenopathy. CARDIOVASCULAR: Regular rate and rhythm without murmurs, gallops, or rubs. RESPIRATORY: Breath sounds equal bilaterally. No accessory muscle use. Decreased BS at bases GASTROINTESTINAL: Abdomen soft, non-tender, nondistended. MUSCULOSKELETAL: No cyanosis, ++ edema. BACK: Nontender without obvious deformity. No CVA tenderness. A/P Assessment and Plan Bilat Pleural effusion CHF CMP AF PHTN ETOH use PLAN: Diurease Aerosol nebs prn SQ Heparin Supplement 02 Lacho Palacios MD Jun 29, 2017 20:04
[2017-06-29] MEDS: FAMOTIDINE 20 MG TAB PO SCH (21:00)
[2017-06-30] VITALS (27 sets, daily range): BP systolic 96–121; BP diastolic 55–97; PULSE 90–127; RESP 20; TEMP 97.7–98.2; O2SAT 94–98
[2017-06-30] MEDS: RESP: IPRATROPIUM 0.5 MG/2.5 ML NEB NEB SCH ×6 (00:21→20:00)
[2017-06-30] MEDS: LORazepam 2 MG/ML VIAL IV PUSH PRN (01:14)
[2017-06-30] MEDS: ENOXAPARIN SODIUM 150 MG/ML SYRINGE SQ SCH ×2 (06:00→17:18)
[2017-06-30] MEDS: guaiFENesin E.R. 600 MG TAB PO SCH ×2 (08:46→21:00)
[2017-06-30] MEDS: SODIUM CHLORIDE 0.9% FLUSH 10 ML FLUSH IV FLUSH SCH ×2 (08:46→21:00)
[2017-06-30] MEDS: DOCUSATE SODIUM 50 MG/SENNA 8.6 MG TAB PO SCH ×2 (08:47→21:00)
[2017-06-30] MEDS: FAMOTIDINE 20 MG TAB PO SCH ×2 (08:47→21:00)
[2017-06-30] MEDS: DILTIAZEM INJ 125 MG in SODIUM CHLORIDE 0.9% INJ 100 ML IV PRN ×2 (08:51→23:53)
[2017-06-30] MEDS: METOPROLOL TARTRATE 25 MG TAB PO SCH ×2 (08:53→19:33)
--- NOTE | 2017-06-30 12:43 | HHI.PR ---
Subjective Remarks This is a pleasant 62 y/o Male who complained of Shortness of breath, swelling on both legs, He denies cough, chest pain, abdominal pain, nausea or vomiting, fevers or chills, recent travel. He reports a history of "swollen about in the 1970s which limited by body for several years before I eventually killed with alcohol." Beyond that he reports a history of osteoporosis. He is a very poor historian. Per chart review the patient has been seen here in the past primarily for alcohol-related hallucinations, delirium tremens. He reports that he has not had any alcohol in the past few days-he believes that he had a bottle of wine just prior to eating a [employer] 3 days ago. He has no primary care physician. He has no other complaints at this time. seen in Emergency room in the presence of nurse, he is disheveled and very poor historian. 06/29: optical instrument specialist following the patient refused Thoracentesis. 06/30: Seen in his bedroom improving respiratory saldivar, but continue with anasarca, continue diuresis at this time, his blood pressure is low continue to titrate off Cardizem and continue by mouth Beta blockers and diuretics. Objective Vital Signs Date Time Temp Pulse Resp B/P (MAP) Pulse Ox O2 Delivery O2 Flow Rate FiO2 06/30/17 12:16 95 06/30/17 11:42 98.2 98 20 97/68 (78) 94 06/30/17 11:42 94 06/30/17 10:00 98 06/30/17 09:41 104 20 105/76 (86) 96 06/30/17 09:00 103 06/30/17 08:51 100 96/76 06/30/17 08:13 95 Nasal Cannula 3.00 06/30/17 08:00 104 06/30/17 07:31 104 06/30/17 07:00 97.7 100 20 96/76 (83) 94 06/30/17 06:00 112 06/30/17 05:00 114 06/30/17 04:30 127 20 121/97 (105) 97 06/30/17 04:00 104 06/30/17 03:00 104 06/30/17 02:00 104 06/30/17 01:00 96 06/30/17 00:00 98 06/29/17 23:00 97.6 87 20 101/58 (72) 98 06/29/17 23:00 94 06/29/17 22:00 96 06/29/17 21:00 96 06/29/17 20:00 114 06/29/17 19:49 98 Nasal Cannula 3.00 06/29/17 19:45 97.8 66 20 113/86 (95) 98 06/29/17 19:00 102 06/29/17 19:00 66 113/86 06/29/17 18:00 106 06/29/17 17:40 102 112/64 06/29/17 17:00 109 06/29/17 16:00 106 06/29/17 15:43 98.8 120 20 112/94 (100) 96 06/29/17 15:00 108 06/29/17 14:00 98 06/29/17 13:00 95 I/O 06/29/17 06/29/17 06/29/17 06/30/17 06/30/17 06/30/17 07:00 15:00 23:00 07:00 15:00 23:00 Intake Total 480 ml 1087 ml 480 ml Output Total 550 ml 650 ml 300 ml Balance -70 ml 437 ml 180 ml Intake Oral 480 ml 975 ml 480 ml IV Total 112 ml Output Urine Total 550 ml 650 ml 300 ml # Bowel Movements 0 Result Diagram: 06/29/17 0550 06/29/17 [address] Angiography 06/28/17 1327 Signed Impressions: Service Date/Time: Wednesday, June 28, 2017 15:58 - CONCLUSION: 1. No pulmonary embolus identified. 2. Large right-sided pleural effusion with consolidation of the right lower lobe. Srikanth Ware MD Chest X-Ray 06/28/17 1316 Signed Impressions: Service Date/Time: Wednesday, June 28, 2017 13:21 - CONCLUSION: Small right pleural effusion with associated volume loss and/or consolidation at the right lung base. Cole Garcia MD Procedures None Other Results Laboratory Tests Test 06/28/17 13:25 06/28/17 20:03 06/29/17 03:50 06/29/17 05:50 Blood Urea Nitrogen 14 MG/DL 12 MG/DL Creatinine 1.06 MG/DL 0.94 MG/DL Random Glucose 101 MG/DL 84 MG/DL Total Protein 6.9 GM/DL 6.0 GM/DL Albumin 3.2 GM/DL 2.8 GM/DL Calcium Level 8.8 MG/DL 8.4 MG/DL Magnesium Level 2.3 MG/DL Alkaline Phosphatase 107 U/L 92 U/L Aspartate Amino Transf (AST/SGOT) 25 U/L 15 U/L Alanine Aminotransferase (ALT/SGPT) 21 U/L 20 U/L Total Bilirubin 0.5 MG/DL 0.5 MG/DL Sodium Level 140 MEQ/L 140 MEQ/L Potassium Level 4.4 MEQ/L 3.8 MEQ/L Chloride Level 107 MEQ/L 107 MEQ/L Carbon Dioxide Level 26.4 MEQ/L 27.4 MEQ/L B-Type Natriuretic Peptide 418 PG/ML Lipase 152 U/L Thyroid Stimulating Hormone 3rd Gen 1.260 uIU/ML Ethyl Alcohol Level LESS THAN 3 MG/DL Urine Color YELLOW Urine Turbidity CLEAR Urine pH 5.0 Urine Specific [place] 1.039 Urine Protein NEG mg/dL Urine Glucose (UA) NEG mg/dL Urine Ketones TRACE mg/dL Urine Occult Blood NEG Urine Nitrite NEG Urine Bilirubin NEG Urine Urobilinogen LESS THAN 2.0 MG/DL Urine Leukocyte Esterase NEG Urine RBC 1 /hpf Urine WBC 1 /hpf Urine Mucus FEW /lpf Microscopic Urinalysis Comment CULT NOT INDICATED Urine Opiates Screen NEG Urine Barbiturates Screen NEG Urine Amphetamines Screen NEG Urine Benzodiazepines Screen NEG Urine Cocaine Screen NEG Urine Cannabinoids Screen NEG Total Creatine Kinase 57 U/L Troponin I 0.02 NG/ML White Blood Count 12.4 TH/MM3 Red Blood Count 4.51 MIL/MM3 Hemoglobin 11.8 GM/DL Hematocrit 38.3 % Mean Corpuscular Volume 85.0 FL Mean Corpuscular Hemoglobin 26.3 PG Mean Corpuscular Hemoglobin Concent 30.9 % Red Cell Distribution Width 17.5 % Platelet Count 256 TH/MM3 Mean Platelet Volume 9.0 FL Neutrophils (%) (Auto) 81.2 % Lymphocytes (%) (Auto) 9.2 % Monocytes (%) (Auto) 8.3 % Eosinophils (%) (Auto) 0.7 % Basophils (%) (Auto) 0.6 % Neutrophils # (Auto) 10.1 TH/MM3 Lymphocytes # (Auto) 1.1 TH/MM3 Monocytes # (Auto) 1.0 TH/MM3 Eosinophils # (Auto) 0.1 TH/MM3 Basophils # (Auto) 0.1 TH/MM3 CBC Comment DIFF FINAL Differential Comment Anion Gap 6 MEQ/L Estimat Glomerular Filtration Rate 81 ML/MIN Test 06/29/17 06:20 Prothrombin Time 12.1 SEC Prothromb Time International Ratio 1.1 RATIO Objective Remarks GENERAL: This is a disheveled appearing male in no acute distress. SKIN: Warm and dry. Some excoriation of the skin is noted on the abdominal wall in the lower extremities. HEAD: Atraumatic. Normocephalic. EYES: Pupils equal and round. No scleral icterus. No injection or drainage. ENT: No nasal bleeding or discharge. Mucous membranes pink and moist. NECK: Trachea midline. No JVD. CARDIOVASCULAR: Irregular rate, rhythm, tachycardic. No murmur. RESPIRATORY: No accessory muscle use. Clear to auscultation. Breath sounds equal bilaterally. GASTROINTESTINAL: Abdomen soft, non-tender, nondistended. Hepatic and splenic margins not palpable. Pannus cellulitis. MUSCULOSKELETAL: No obvious deformities. 2+ pitting edema lower extremities bilaterally. NEUROLOGICAL: Awake and alert. No obvious cranial nerve deficits. Motor grossly within normal limits. Normal speech. PSYCHIATRIC: Insight and judgment appear diminished. Medications and IVs Current Medications Medications (Trade) Dose Ordered Sig/Zeinab Route Start Time Stop Time Status Last Admin (Cardizem Inj) 46 mg ONCE PRN IV PUSH 06/28/17 14:15 06/28/17 15:08 Diltiazem HCl 125 mg/Sodium Chloride 125 ml @ 5 mls/hr TITRATE PRN IV 06/28/17 14:15 06/30/17 08:51 (Lovenox Inj) 130 mg Q12H SQ 06/28/17 18:00 06/30/17 06:00 (NS Flush) 2 ml UNSCH PRN IV FLUSH 06/28/17 17:15 (NS Flush) 2 ml BID IV FLUSH 06/28/17 21:00 06/30/17 08:46 (Tylenol) 650 mg Q4H PRN PO 06/28/17 17:15 (Zofran Inj) 4 mg Q6H PRN IVP 06/28/17 17:15 (Narcan Inj) 0.4 mg UNSCH PRN IV PUSH 06/28/17 17:15 (Mehnaz-Colace) 1 tab BID PO 06/28/17 21:00 06/30/17 08:47 (Milk Of Magnesia Liq) 30 ml Q12H PRN PO 06/28/17 17:15 (Senokot) 17.2 mg Q12H PRN PO 06/28/17 17:15 (Dulcolax Supp) 10 mg DAILY PRN RECTAL 06/28/17 17:15 (Lactulose Liq) 30 ml DAILY PRN PO 06/28/17 17:15 (Atrovent Neb) 0.5 mg Q4HR NEB NEB 06/28/17 20:00 06/30/17 08:12 (Mucinex Er) 600 mg BID PO 06/28/17 21:00 06/30/17 08:46 (Lopressor) 25 mg Q12H PO 06/29/17 08:00 06/30/17 08:53 (Pepcid) 20 mg BID PO 06/29/17 21:00 06/30/17 08:47 (Ativan Inj) 1 mg Q4H PRN IV PUSH 06/30/17 01:00 06/30/17 01:14 (Librium) 10 mg TID PO 06/30/17 09:00 A/P Assessment and Plan 1. Atrial Fibrillation with RVR status post bolus of Diltiazem two time and continue drip, Cardiology following Continue Metoprolol 25 mg BID, Echocardiogram EF 30-35%, Global Hypokinesis , Mild concentric left ventricular Hypertrophy, Mild mitral valve regurgitation, 2. Obesity strongly recommended diet and exercise 3. Acute on chronic respiratory insufficiency, multifactorial secondary to Atrial Fibrillation with RVR, probable early onset of COPD, Obesity hypoventilation syndrome, on Bronchodilator, Mucolytic and incentive spirometry. Pneumonia, the patient refused Thoracentesis, will continue present care, optical instrument specialist following. following cultures. 4. Edema on both extremities continue diuresis. 5. Ruled out Pneumonia the patient has Right sided Pleural effusion, refused Thoracentesis as per optical instrument specialist continue diuresis. DVT prophylaxis with Lovenox. GI protection with Famotidine. Code Status Full Code. Discussed Condition With Patient, all questions answered to the best of my abilities. Discharge Planning Once cleared by specialists. Lex Napier MD Jun 30, 2017 12:43
--- NOTE | 2017-06-30 12:56 | PD.CARD.PN ---
Subjective Subjective Remarks C/o fatigue, no CP, mild SOB, uncooperative, refused thoracentesis Objective Medications Active Medications Chlordiazepoxide (Librium) 10 mg TID PO; Start 06/30/17 at 09:00 Famotidine (Pepcid) 20 mg BID PO Last administered on 06/30/17 08:47; Admin Dose 20 MG; Start 06/29/17 at 21:00 Lorazepam (Ativan Inj) 1 mg Q4H PRN IV PUSH Last administered on 06/30/17 01: 14; Admin Dose 1 MG; Start 06/30/17 at 01:00 Vital Signs / I&O Vital Signs Date Time Temp Pulse Resp B/P (MAP) Pulse Ox O2 Delivery O2 Flow Rate FiO2 06/30/17 12:16 95 06/30/17 11:42 98.2 98 20 97/68 (78) 94 06/30/17 11:42 94 06/30/17 10:00 98 06/30/17 09:41 104 20 105/76 (86) 96 06/30/17 09:00 103 06/30/17 08:51 100 96/76 06/30/17 08:13 95 Nasal Cannula 3.00 06/30/17 08:00 104 06/30/17 07:31 104 06/30/17 07:00 97.7 100 20 96/76 (83) 94 06/30/17 06:00 112 06/30/17 05:00 114 06/30/17 04:30 127 20 121/97 (105) 97 06/30/17 04:00 104 06/30/17 03:00 104 06/30/17 02:00 104 06/30/17 01:00 96 06/30/17 00:00 98 06/29/17 23:00 97.6 87 20 101/58 (72) 98 06/29/17 23:00 94 06/29/17 22:00 96 06/29/17 21:00 96 06/29/17 20:00 114 06/29/17 19:49 98 Nasal Cannula 3.00 06/29/17 19:45 97.8 66 20 113/86 (95) 98 06/29/17 19:00 102 06/29/17 19:00 66 113/86 06/29/17 18:00 106 06/29/17 17:40 102 112/64 06/29/17 17:00 109 06/29/17 16:00 106 06/29/17 15:43 98.8 120 20 112/94 (100) 96 06/29/17 15:00 108 06/29/17 14:00 98 06/29/17 13:00 95 I/O 06/29/17 06/29/17 06/29/17 06/30/17 06/30/17 06/30/17 07:00 15:00 23:00 07:00 15:00 23:00 Intake Total 480 ml 1087 ml 480 ml Output Total 550 ml 650 ml 300 ml Balance -70 ml 437 ml 180 ml Intake Oral 480 ml 975 ml 480 ml IV Total 112 ml Output Urine Total 550 ml 650 ml 300 ml # Bowel Movements 0 Physical Exam GENERAL: Irreg, tachy, disheveled SKIN: Warm and dry. HEAD: Normocephalic. EYES: No scleral icterus. No injection or drainage. NECK: Supple, trachea midline. No JVD or lymphadenopathy. CARDIOVASCULAR: Irreg, without murmurs, gallops, or rubs. RESPIRATORY: Breath sounds equal bilaterally. Few rhonchi, distant BS GASTROINTESTINAL: Abdomen soft, non-tender, nondistended. MUSCULOSKELETAL: No cyanosis, bilat LE edema. Laboratory Date/Time Source Procedure Growth Status 06/28/17 16:51 Blood Peripheral Aerobic Blood Culture - Preliminary NO GROWTH IN 2 DAYS Resulted 06/28/17 16:51 Blood Peripheral Anaerobic Blood Culture - Preliminary NO GROWTH IN 2 DAYS Resulted 06/28/17 20:03 Urine Clean Catch Legionella Antigen - Final PRESUMPTIVE NEGATIVE FOR LEGIONELLA P... Complete 06/28/17 20:03 Urine Clean Catch Streptococcus pneumoniae Antigen (M - Final PRESUMPTIVE NEGATIVE FOR STREPTOCOCCU... Complete Assessment and Plan Problem List: (1) Morbid obesity ICD Codes: E66.01 - Morbid (severe) obesity due to excess calories (2) Atrial fibrillation with RVR ICD Codes: I48.91 - Unspecified atrial fibrillation Status: Acute (3) Pleural effusion ICD Codes: J90 - Pleural effusion, not elsewhere classified Status: Acute (4) ETOH abuse ICD Codes: F10.10 - Alcohol abuse, uncomplicated Assessment and Plan Continue and titrate rate control of AF. Check echo to evaluate LV fx today. Counseled to stop ETOH use. Increase activity. Pulmonary evaluation in progress. Refused thoracentesis; overall long-term prognosis poor with this attitude. Blair Krishnamurthy MD Jun 30, 2017 12:56
[2017-06-30] MEDS: FUROSEMIDE 20 MG TAB PO SCH (17:16)
--- NOTE | 2017-06-30 18:54 | HHI.PR ---
Subjective Remarks 62 YO Obese WM mild SOB " My body is poisoned, nothing wrong with my Heart" Echo EF 30-35 % RVSP 41 Pt declines TC Uncooperative Objective Vital Signs Vital Signs Date Time Temp Pulse Resp B/P (MAP) Pulse Ox O2 Delivery O2 Flow Rate FiO2 06/30/17 17:00 106 06/30/17 16:27 90 06/30/17 15:34 97.8 106 20 114/83 (93) 98 06/30/17 15:34 106 06/30/17 14:00 108 06/30/17 13:00 104 06/30/17 12:16 95 06/30/17 11:42 98.2 98 20 97/68 (78) 94 06/30/17 11:42 94 06/30/17 10:00 98 06/30/17 09:41 104 20 105/76 (86) 96 06/30/17 09:00 103 06/30/17 08:51 100 96/76 06/30/17 08:13 95 Nasal Cannula 3.00 06/30/17 08:00 104 06/30/17 07:31 104 06/30/17 07:00 97.7 100 20 96/76 (83) 94 06/30/17 06:00 112 06/30/17 05:00 114 06/30/17 04:30 127 20 121/97 (105) 97 06/30/17 04:00 104 06/30/17 03:00 104 06/30/17 02:00 104 06/30/17 01:00 96 06/30/17 00:00 98 06/29/17 23:00 97.6 87 20 101/58 (72) 98 06/29/17 23:00 94 06/29/17 22:00 96 06/29/17 21:00 96 06/29/17 20:00 114 06/29/17 19:49 98 Nasal Cannula 3.00 06/29/17 19:45 97.8 66 20 113/86 (95) 98 06/29/17 19:00 102 06/29/17 19:00 66 113/86 I/O 06/29/17 06/29/17 06/29/17 06/30/17 06/30/17 06/30/17 07:00 15:00 23:00 07:00 15:00 23:00 Intake Total 480 ml 1087 ml 480 ml 10 ml 542.8 ml Output Total 550 ml 650 ml 300 ml 900 ml Balance -70 ml 437 ml 180 ml 10 ml -357.2 ml Intake Oral 480 ml 975 ml 480 ml 480 ml IV Total 112 ml 10 ml 62.8 ml Output Urine Total 550 ml 650 ml 300 ml 900 ml # Bowel Movements 0 Result Diagram: 06/29/1750 06/29/17 0550 Objective Remarks GENERAL: Obese Wm mild sob SKIN: Warm and dry. HEAD: Normocephalic. EYES: No scleral icterus. No injection or drainage. NECK: Supple, trachea midline. No JVD or lymphadenopathy. CARDIOVASCULAR: Regular rate and rhythm without murmurs, gallops, or rubs. RESPIRATORY: Breath sounds equal bilaterally. No accessory muscle use. Decreased BS at bases GASTROINTESTINAL: Abdomen soft, non-tender, nondistended. MUSCULOSKELETAL: No cyanosis, ++ edema. BACK: Nontender without obvious deformity. No CVA tenderness. A/P Assessment and Plan Bilat Pleural effusion CHF CMP AF PHTN ETOH use PLAN: Diurease Aerosol nebs prn SQ Heparin Supplement 02 Stable on NC Lacho Palacios MD Jun 30, 2017 18:54
[2017-07-01] VITALS (25 sets, daily range): BP systolic 112–128; BP diastolic 64–85; PULSE 89–126; RESP 16–32; TEMP 97.6–98.1; O2SAT 95–100
[2017-07-01] MEDS: RESP: IPRATROPIUM 0.5 MG/2.5 ML NEB NEB SCH ×6 (04:00→20:00)
[2017-07-01] MEDS: ENOXAPARIN SODIUM 150 MG/ML SYRINGE SQ SCH ×2 (05:29→17:36)
[2017-07-01] MEDS: LORazepam 2 MG/ML VIAL IV PUSH PRN ×2 (05:49→19:50)
[2017-07-01] MEDS: SODIUM CHLORIDE 0.9% FLUSH 10 ML FLUSH IV FLUSH SCH ×2 (09:00→21:00)
[2017-07-01] MEDS: guaiFENesin E.R. 600 MG TAB PO SCH ×2 (09:02→21:00)
[2017-07-01] MEDS: DOCUSATE SODIUM 50 MG/SENNA 8.6 MG TAB PO SCH ×2 (09:03→21:00)
[2017-07-01] MEDS: FUROSEMIDE 20 MG TAB PO SCH ×2 (09:03→17:35)
[2017-07-01] MEDS: METOPROLOL TARTRATE 25 MG TAB PO SCH ×2 (09:03→19:50)
[2017-07-01] MEDS: FAMOTIDINE 20 MG TAB PO SCH ×2 (09:04→21:00)
--- NOTE | 2017-07-01 11:17 | HHI.PR ---
Subjective Remarks This is a pleasant 62 y/o Male who complained of Shortness of breath, swelling on both legs, He denies cough, chest pain, abdominal pain, nausea or vomiting, fevers or chills, recent travel. He reports a history of "swollen about in the 1970s which limited by body for several years before I eventually killed with alcohol." Beyond that he reports a history of osteoporosis. He is a very poor historian. Per chart review the patient has been seen here in the past primarily for alcohol-related hallucinations, delirium tremens. He reports that he has not had any alcohol in the past few days-he believes that he had a bottle of wine just prior to eating a [employer] 3 days ago. He has no primary care physician. He has no other complaints at this time. seen in Emergency room in the presence of nurse, he is disheveled and very poor historian. 06/29: mechanical service specialist following the patient refused Thoracentesis. 06/30: Seen in his bedroom improving respiratory [place], but continue with anasarca, continue diuresis at this time, his blood pressure is low continue to titrate off Cardizem and continue by mouth Beta blockers and diuretics. 07/01: Stable seen in his bedroom and discussed with nurse Miss Narvaez lauren , had Echocardiogram EF 30-35%, Left ventricular systolic function reduced, global Hypokinesis. no nausea, vomit or diarrhea. Objective Vital Signs Date Time Temp Pulse Resp B/P (MAP) Pulse Ox O2 Delivery O2 Flow Rate FiO2 07/01/17 07:00 126 07/01/17 07:00 97.9 100 20 112/77 (89) 100 07/01/17 06:00 106 07/01/17 05:00 102 07/01/17 04:58 98 Nasal Cannula 3.00 07/01/17 04:00 106 07/01/17 03:00 106 07/01/17 03:00 112 16 128/85 (99) 100 07/01/17 02:45 112 128/85 07/01/17 02:00 106 07/01/17 01:00 108 07/01/17 00:00 98 06/30/17 23:53 114 100/55 06/30/17 23:00 98 06/30/17 23:00 97.9 114 20 100/55 (70) 98 06/30/17 22:00 94 06/30/17 21:00 102 06/30/17 20:00 96 06/30/17 19:38 94 98/63 06/30/17 19:00 97.7 94 20 98/63 (75) 94 06/30/17 19:00 100 06/30/17 17:00 106 06/30/17 16:27 90 06/30/17 15:34 97.8 106 20 114/83 (93) 98 06/30/17 15:34 106 06/30/17 14:00 108 06/30/17 13:00 104 06/30/17 12:16 95 06/30/17 11:42 98.2 98 20 97/68 (78) 94 06/30/17 11:42 94 I/O 06/30/17 06/30/17 06/30/17 07/01/17 07/01/17 07/01/17 07:00 15:00 23:00 07:00 15:00 23:00 Intake Total 480 ml 10 ml 542.8 ml 1659 ml Output Total 300 ml 900 ml 1880 ml Balance 180 ml 10 ml -357.2 ml -221 ml Intake Oral 480 ml 480 ml 720 ml IV Total 10 ml 62.8 ml 939 ml Output Urine Total 300 ml 900 ml 1880 ml Result Diagram: 06/29/17 0550 06/29/[address] Angiography 06/28/17 1327 Signed Impressions: Service Date/Time: Wednesday, June 28, 2017 15:58 - CONCLUSION: 1. No pulmonary embolus identified. 2. Large right-sided pleural effusion with consolidation of the right lower lobe. Srikanth Ware MD Chest X-Ray 06/28/17 1316 Signed Impressions: Service Date/Time: Wednesday, June 28, 2017 13:21 - CONCLUSION: Small right pleural effusion with associated volume loss and/or consolidation at the right lung base. Cole Garcia MD Procedures None Other Results Laboratory Tests Test 06/28/17 13:25 06/28/17 20:03 06/29/17 03:50 06/29/17 05:50 Blood Urea Nitrogen 14 MG/DL 12 MG/DL Creatinine 1.06 MG/DL 0.94 MG/DL Random Glucose 101 MG/DL 84 MG/DL Total Protein 6.9 GM/DL 6.0 GM/DL Albumin 3.2 GM/DL 2.8 GM/DL Calcium Level 8.8 MG/DL 8.4 MG/DL Magnesium Level 2.3 MG/DL Alkaline Phosphatase 107 U/L 92 U/L Aspartate Amino Transf (AST/SGOT) 25 U/L 15 U/L Alanine Aminotransferase (ALT/SGPT) 21 U/L 20 U/L Total Bilirubin 0.5 MG/DL 0.5 MG/DL Sodium Level 140 MEQ/L 140 MEQ/L Potassium Level 4.4 MEQ/L 3.8 MEQ/L Chloride Level 107 MEQ/L 107 MEQ/L Carbon Dioxide Level 26.4 MEQ/L 27.4 MEQ/L B-Type Natriuretic Peptide 418 PG/ML Lipase 152 U/L Thyroid Stimulating Hormone 3rd Gen 1.260 uIU/ML Ethyl Alcohol Level LESS THAN 3 MG/DL Urine Color YELLOW Urine Turbidity CLEAR Urine pH 5.0 Urine Specific [place] 1.039 Urine Protein NEG mg/dL Urine Glucose (UA) NEG mg/dL Urine Ketones TRACE mg/dL Urine Occult Blood NEG Urine Nitrite NEG Urine Bilirubin NEG Urine Urobilinogen LESS THAN 2.0 MG/DL Urine Leukocyte Esterase NEG Urine RBC 1 /hpf Urine WBC 1 /hpf Urine Mucus FEW /lpf Microscopic Urinalysis Comment CULT NOT INDICATED Urine Opiates Screen NEG Urine Barbiturates Screen NEG Urine Amphetamines Screen NEG Urine Benzodiazepines Screen NEG Urine Cocaine Screen NEG Urine Cannabinoids Screen NEG Total Creatine Kinase 57 U/L Troponin I 0.02 NG/ML White Blood Count 12.4 TH/MM3 Red Blood Count 4.51 MIL/MM3 Hemoglobin 11.8 GM/DL Hematocrit 38.3 % Mean Corpuscular Volume 85.0 FL Mean Corpuscular Hemoglobin 26.3 PG Mean Corpuscular Hemoglobin Concent 30.9 % Red Cell Distribution Width 17.5 % Platelet Count 256 TH/MM3 Mean Platelet Volume 9.0 FL Neutrophils (%) (Auto) 81.2 % Lymphocytes (%) (Auto) 9.2 % Monocytes (%) (Auto) 8.3 % Eosinophils (%) (Auto) 0.7 % Basophils (%) (Auto) 0.6 % Neutrophils # (Auto) 10.1 TH/MM3 Lymphocytes # (Auto) 1.1 TH/MM3 Monocytes # (Auto) 1.0 TH/MM3 Eosinophils # (Auto) 0.1 TH/MM3 Basophils # (Auto) 0.1 TH/MM3 CBC Comment DIFF FINAL Differential Comment Anion Gap 6 MEQ/L Estimat Glomerular Filtration Rate 81 ML/MIN Test 06/29/17 06:20 Prothrombin Time 12.1 SEC Prothromb Time International Ratio 1.1 RATIO Objective Remarks GENERAL: No acute distress. SKIN: Warm and dry. Some excoriation of the skin is noted on the abdominal wall in the lower extremities. HEAD: Atraumatic. Normocephalic. EYES: Pupils equal and round. No scleral icterus. No injection or drainage. ENT: No nasal bleeding or discharge. Mucous membranes pink and moist. NECK: Trachea midline. No JVD. CARDIOVASCULAR: Irregular rate, rhythm, tachycardic. No murmur. RESPIRATORY: Decreased breath sounds bilateral, no wheezing or crackles. GASTROINTESTINAL: Abdomen soft, non-tender, nondistended. Hepatic and splenic margins not palpable. Pannus cellulitis. MUSCULOSKELETAL: No obvious deformities. 2+ pitting edema lower extremities bilaterally. NEUROLOGICAL: Awake and alert. No obvious cranial nerve deficits. Motor grossly within normal limits. Normal speech. PSYCHIATRIC: Insight and judgment appear diminished. Medications and IVs Current Medications Medications (Trade) Dose Ordered Sig/Zeinab Route Start Time Stop Time Status Last Admin (Cardizem Inj) 46 mg ONCE PRN IV PUSH 06/28/17 14:15 06/28/17 15:08 Diltiazem HCl 125 mg/Sodium Chloride 125 ml @ 5 mls/hr TITRATE PRN IV 06/28/17 14:15 06/30/17 23:53 (Lovenox Inj) 130 mg Q12H SQ 06/28/17 18:00 07/01/17 05:29 (NS Flush) 2 ml UNSCH PRN IV FLUSH 06/28/17 17:15 (NS Flush) 2 ml BID IV FLUSH 06/28/17 21:00 06/30/17 08:46 (Tylenol) 650 mg Q4H PRN PO 06/28/17 17:15 (Zofran Inj) 4 mg Q6H PRN IVP 06/28/17 17:15 (Narcan Inj) 0.4 mg UNSCH PRN IV PUSH 06/28/17 17:15 (Mehnaz-Colace) 1 tab BID PO 06/28/17 21:00 07/01/17 09:03 (Milk Of Magnesia Liq) 30 ml Q12H PRN PO 06/28/17 17:15 (Senokot) 17.2 mg Q12H PRN PO 06/28/17 17:15 (Dulcolax Supp) 10 mg DAILY PRN RECTAL 06/28/17 17:15 (Lactulose Liq) 30 ml DAILY PRN PO 06/28/17 17:15 (Atrovent Neb) 0.5 mg Q4HR NEB NEB 06/28/17 20:00 06/30/17 15:28 (Mucinex Er) 600 mg BID PO 06/28/17 21:00 07/01/17 09:02 (Lopressor) 25 mg Q12H PO 06/29/17 08:00 07/01/17 09:03 (Pepcid) 20 mg BID PO 06/29/17 21:00 07/01/17 09:04 (Ativan Inj) 1 mg Q4H PRN IV PUSH 06/30/17 01:00 07/01/17 05:49 (Librium) 10 mg TID PO 06/30/17 09:00 06/30/17 17:16 (Lasix) 20 mg BID@,18 PO 06/30/17 18:00 07/01/17 09:03 A/P Assessment and Plan 1. Atrial Fibrillation with RVR status post bolus of Diltiazem two time and continue drip, Cardiology following Continue Metoprolol 25 mg BID, Echocardiogram EF 30-35%, Global Hypokinesis , Mild concentric left ventricular Hypertrophy, Mild mitral valve regurgitation, 2. Obesity strongly recommended diet and exercise 3. Acute on chronic respiratory insufficiency, multifactorial secondary to Atrial Fibrillation with RVR, probable early onset of COPD, Obesity hypoventilation syndrome, on Bronchodilator, Mucolytic and incentive spirometry. Pneumonia, the patient refused Thoracentesis, will continue present care, mechanical service specialist following. following cultures. 4. Edema on both extremities continue diuresis. 5. Ruled out Pneumonia the patient has Right sided Pleural effusion, refused Thoracentesis as per mechanical service specialist continue diuresis. DVT prophylaxis with Lovenox. GI protection with Famotidine. Code Status Full Code. Discussed Condition With Patient and nurse Miss Narvaez, all questions answered to the best of my abilities. Discharge Planning Once cleared by specialists. Lex Napier MD Jul 01, 2017 11:17
--- NOTE | 2017-07-01 13:18 | PD.CARD.PN ---
Subjective Subjective Remarks No CP, mild SOB, very uncooperative Objective Medications Active Medications Furosemide (Lasix) 20 mg BID@ PO Last administered on 07/01/17t 09:03; Admin Dose 20 MG; Start 06/30/17 at 18:00 Vital Signs / I&O Vital Signs Date Time Temp Pulse Resp B/P (MAP) Pulse Ox O2 Delivery O2 Flow Rate FiO2 07/01/17 11:00 97.6 89 18 122/67 (85) 99 07/01/17 07:00 126 07/01/17 07:00 97.9 100 20 112/77 (89) 100 07/01/17 06:00 106 07/01/17 05:00 102 07/01/17 04:58 98 Nasal Cannula 3.00 07/01/17 04:00 106 07/01/17 03:00 106 07/01/17 03:00 112 16 128/85 (99) 100 07/01/17 02:45 112 128/85 07/01/17 02:00 106 07/01/17 01:00 108 07/01/17 00:00 98 06/30/17 23:53 114 100/55 06/30/17 23:00 98 06/30/17 23:00 97.9 114 20 100/55 (70) 98 06/30/17 22:00 94 06/30/17 21:00 102 06/30/17 20:00 96 06/30/17 19:38 94 98/63 06/30/17 19:00 97.7 94 20 98/63 (75) 94 06/30/17 19:00 100 06/30/17 17:00 106 06/30/17 16:27 90 06/30/17 15:34 97.8 106 20 114/83 (93) 98 06/30/17 15:34 106 06/30/17 14:00 108 I/O 06/30/17 06/30/17 06/30/17 07/01/17 07/01/17 07/01/17 07:00 15:00 23:00 07:00 15:00 23:00 Intake Total 480 ml 10 ml 542.8 ml 1659 ml Output Total 300 ml 900 ml 1880 ml Balance 180 ml 10 ml -357.2 ml -221 ml Intake Oral 480 ml 480 ml 720 ml IV Total 10 ml 62.8 ml 939 ml Output Urine Total 300 ml 900 ml 1880 ml Physical Exam GENERAL: Irreg, tachy, disheveled SKIN: Warm and dry. HEAD: Normocephalic. EYES: No scleral icterus. No injection or drainage. NECK: Supple, trachea midline. No JVD or lymphadenopathy. CARDIOVASCULAR: Irreg, without murmurs, gallops, or rubs. RESPIRATORY: Breath sounds equal bilaterally. Few rhonchi, distant BS GASTROINTESTINAL: Abdomen soft, non-tender, nondistended. MUSCULOSKELETAL: No cyanosis, bilat LE edema. Laboratory Date/Time Source Procedure Growth Status 06/28/17 16:51 Blood Peripheral Aerobic Blood Culture - Preliminary NO GROWTH IN 3 DAYS Resulted 06/28/17 16:51 Blood Peripheral Anaerobic Blood Culture - Preliminary NO GROWTH IN 3 DAYS Resulted 06/28/17 20:03 Urine Clean Catch Legionella Antigen - Final PRESUMPTIVE NEGATIVE FOR LEGIONELLA P... Complete 06/28/17 20:03 Urine Clean Catch Streptococcus pneumoniae Antigen (M - Final PRESUMPTIVE NEGATIVE FOR STREPTOCOCCU... Complete Assessment and Plan Problem List: (1) Morbid obesity ICD Codes: E66.01 - Morbid (severe) obesity due to excess calories (2) Atrial fibrillation with RVR ICD Codes: I48.91 - Unspecified atrial fibrillation Status: Acute (3) Pleural effusion ICD Codes: J90 - Pleural effusion, not elsewhere classified Status: Acute (4) ETOH abuse ICD Codes: F10.10 - Alcohol abuse, uncomplicated Assessment and Plan Continue and titrate rate control of AF. Check echo to evaluate LV fx. Counseled to stop ETOH use. Increase activity. Pulmonary evaluation in progress. Refused thoracentesis; overall long-term prognosis poor. Poor candidate for full anticoagulation. Blair Krishnamurthy MD Jul 01, 2017 13:18
[2017-07-01] MEDS: DILTIAZEM INJ 125 MG in SODIUM CHLORIDE 0.9% INJ 100 ML IV PRN (13:43)
--- NOTE | 2017-07-01 16:59 | HHI.PR ---
Subjective Remarks 62 YO Obese WM mild SOB " My body is poisoned, nothing wrong with my Heart" Echo EF 30-35 % RVSP 41 Uncooperative, adamentally refuses TC " I want my regular diet.I want Atropine for antidote of pesticide poisoning" Objective Vital Signs Vital Signs Date Time Temp Pulse Resp B/P (MAP) Pulse Ox O2 Delivery O2 Flow Rate FiO2 07/01/17 16:00 98 07/01/17 15:00 105 07/01/17 15:00 98.1 104 18 117/71 (86) 96 07/01/17 14:00 106 07/01/17 13:43 108 114/85 07/01/17 13:00 98 07/01/17 12:00 96 07/01/17 11:00 126 07/01/17 11:00 97.6 89 18 122/67 (85) 99 07/01/17 10:00 110 07/01/17 09:00 104 07/01/17 08:00 108 07/01/17 07:00 126 07/01/17 07:00 97.9 100 20 112/77 (89) 100 07/01/17 06:00 106 07/01/17 05:00 102 07/01/17 04:58 98 Nasal Cannula 3.00 07/01/17 04:00 106 07/01/17 03:00 106 07/01/17 03:00 112 16 128/85 (99) 100 07/01/17 02:45 112 128/85 07/01/17 02:00 106 07/01/17 01:00 108 07/01/17 00:00 98 06/30/17 23:53 114 100/55 06/30/17 23:00 98 06/30/17 23:00 97.9 114 20 100/55 (70) 98 06/30/17 22:00 94 06/30/17 21:00 102 06/30/17 20:00 96 06/30/17 19:38 94 98/63 06/30/17 19:00 97.7 94 20 98/63 (75) 94 06/30/17 19:00 100 06/30/17 17:00 106 I/O 9/20/17 9/20/17 9/20/17 9/21/17 9/21/17 9/21/17 07:00 15:00 23:00 07:00 15:00 23:00 Intake Total 480 ml 10 ml 542.8 ml 1659 ml Output Total 300 ml 900 ml 1880 ml Balance 180 ml 10 ml -357.2 ml -221 ml Intake Oral 480 ml 480 ml 720 ml IV Total 10 ml 62.8 ml 939 ml Output Urine Total 300 ml 900 ml 1880 ml Result Diagram: 06/29/1750 06/29/17 0550 Objective Remarks GENERAL: Obese Wm mild sob SKIN: Warm and dry. HEAD: Normocephalic. EYES: No scleral icterus. No injection or drainage. NECK: Supple, trachea midline. No JVD or lymphadenopathy. CARDIOVASCULAR: Regular rate and rhythm without murmurs, gallops, or rubs. RESPIRATORY: Breath sounds equal bilaterally. No accessory muscle use. Decreased BS at bases GASTROINTESTINAL: Abdomen soft, non-tender, nondistended. MUSCULOSKELETAL: No cyanosis, ++ edema. BACK: Nontender without obvious deformity. No CVA tenderness. A/P Assessment and Plan Bilat Pleural effusion CHF CMP AF PHTN ETOH use PLAN: Diurease Aerosol nebs prn SQ Heparin Supplement 02 Stable on NC Lacho Palacios MD Jul 01, 2017 16:59
[2017-07-02] VITALS (26 sets, daily range): BP systolic 106–129; BP diastolic 54–85; PULSE 88–129; RESP 18–22; TEMP 97.8–98.6; O2SAT 97–100
[2017-07-02] MEDS: DILTIAZEM INJ 125 MG in SODIUM CHLORIDE 0.9% INJ 100 ML IV PRN ×2 (01:32→22:03)
[2017-07-02] MEDS: RESP: IPRATROPIUM 0.5 MG/2.5 ML NEB NEB SCH ×6 (03:04→19:31)
[2017-07-02] MEDS: ENOXAPARIN SODIUM 150 MG/ML SYRINGE SQ SCH ×2 (06:00→17:15)
[2017-07-02] MEDS: DOCUSATE SODIUM 50 MG/SENNA 8.6 MG TAB PO SCH ×2 (09:00→21:00)
[2017-07-02] MEDS: SODIUM CHLORIDE 0.9% FLUSH 10 ML FLUSH IV FLUSH SCH ×2 (09:00→21:00)
[2017-07-02] MEDS: FAMOTIDINE 20 MG TAB PO SCH ×2 (09:42→21:23)
[2017-07-02] MEDS: FUROSEMIDE 20 MG TAB PO SCH ×2 (09:42→17:10)
[2017-07-02] MEDS: METOPROLOL TARTRATE 25 MG TAB PO SCH (09:42)
[2017-07-02] MEDS: guaiFENesin E.R. 600 MG TAB PO SCH ×2 (09:42→21:23)
--- NOTE | 2017-07-02 11:33 | HHI.PR ---
Subjective Remarks 62 YO Obese WM mild SOB " My body is poisoned, nothing wrong with my Heart" Echo EF 30-35 % RVSP 41 Uncooperative, adamentally refuses TC On Cardiazem drip for rate controll Objective Vital Signs Vital Signs Date Time Temp Pulse Resp B/P (MAP) Pulse Ox O2 Delivery O2 Flow Rate FiO2 07/02/17 11:08 92 07/02/17 11:07 97 92/77 07/02/17 10:00 95 07/02/17 09:00 96 07/02/17 09:00 90 110/52 07/02/17 08:00 92 07/02/17 07:30 97.8 99 18 106/81 (89) 97 07/02/17 07:30 123 07/02/17 07:00 123 106/81 07/02/17 06:00 114 07/02/17 05:00 110 07/02/17 04:00 122 07/02/17 03:45 118 112/54 07/02/17 03:00 110 07/02/17 03:00 118 22 112/54 (73) 100 07/02/17 02:00 108 07/02/17 01:32 109 113/64 07/02/17 01:00 118 07/02/17 00:00 102 07/01/17 23:00 106 07/01/17 23:00 106 32 113/64 (80) 99 07/01/17 22:00 102 07/01/17 21:00 106 07/01/17 20:45 Nasal Cannula 3.00 07/01/17 20:00 118 07/01/17 19:00 98.1 98 20 123/80 (94) 95 07/01/17 19:00 102 07/01/17 18:00 108 07/01/17 17:00 98 07/01/17 16:00 98 07/01/17 15:00 105 07/01/17 15:00 98.1 104 18 117/71 (86) 96 07/01/17 14:00 106 07/01/17 13:43 108 114/85 07/01/17 13:00 98 07/01/17 12:00 96 I/O 07/01/17 07/01/17 07/01/17 07/02/17 07/02/17 07/02/17 07:00 15:00 23:00 07:00 15:00 23:00 Intake Total 1659 ml 825 ml 480 ml Output Total 1880 ml 1500 ml 2250 ml Balance -221 ml -675 ml -1770 ml Intake Oral 720 ml 720 ml 480 ml IV Total 939 ml 105 ml Output Urine Total 1880 ml 1500 ml 2250 ml Result Diagram: 06/29/1754906/29/1750 Objective Remarks GENERAL: Obese Wm mild sob SKIN: Warm and dry. HEAD: Normocephalic. EYES: No scleral icterus. No injection or drainage. NECK: Supple, trachea midline. No JVD or lymphadenopathy. CARDIOVASCULAR: Regular rate and rhythm without murmurs, gallops, or rubs. RESPIRATORY: Breath sounds equal bilaterally. No accessory muscle use. Decreased BS at bases GASTROINTESTINAL: Abdomen soft, non-tender, nondistended. MUSCULOSKELETAL: No cyanosis, ++ edema. BACK: Nontender without obvious deformity. No CVA tenderness. A/P Assessment and Plan Bilat Pleural effusion CHF CMP AF PHTN ETOH use PLAN: Diurease Aerosol nebs prn SQ Heparin Supplement 02 Stable on NC Cardiazem drip, Metoprolol for rate controll Available prn over weekend Lacho Palacios MD Jul 02, 2017 11:33
--- NOTE | 2017-07-02 12:56 | HHI.PR ---
Subjective Remarks This is a pleasant 62 y/o Male who complained of Shortness of breath, swelling on both legs, He denies cough, chest pain, abdominal pain, nausea or vomiting, fevers or chills, recent travel. He reports a history of "swollen about in the 1970s which limited by body for several years before I eventually killed with alcohol." Beyond that he reports a history of osteoporosis. He is a very poor historian. Per chart review the patient has been seen here in the past primarily for alcohol-related hallucinations, delirium tremens. He reports that he has not had any alcohol in the past few days-he believes that he had a bottle of wine just prior to eating a [employer] 3 days ago. He has no primary care physician. He has no other complaints at this time. seen in Emergency room in the presence of nurse, he is disheveled and very poor historian. 06/29: hr specialist following the patient refused Thoracentesis. 06/30: Seen in his bedroom improving respiratory saldivar, but continue with anasarca, continue diuresis at this time, his blood pressure is low continue to titrate off Cardizem and continue by mouth Beta blockers and diuretics. 07/01: Stable seen in his bedroom and discussed with nurse Miss Solange aguilar , had Echocardiogram EF 30-35%, Left ventricular systolic function reduced, global Hypokinesis. 07/02: Seen in his bedroom and discussed with Nurse aguilar assistance, considered for Psychiatry specialist evaluation and also continue in anasarca even on diuretics, he is refusing sometimes to take diuretics, will add Albumin, no nausea, vomit or diarrhea. Objective Vital Signs Date Time Temp Pulse Resp B/P (MAP) Pulse Ox O2 Delivery O2 Flow Rate FiO2 07/02/17 12:14 105 07/02/17 11:40 98.5 88 20 111/74 (86) 98 07/02/17 11:08 92 07/02/17 11:07 97 92/77 07/02/17 10:00 95 07/02/17 09:00 96 07/02/17 09:00 90 110/52 07/02/17 08:00 92 07/02/17 07:30 97.8 99 18 106/81 (89) 97 07/02/17 07:30 123 07/02/17 07:00 123 106/81 07/02/17 06:00 114 07/02/17 05:00 110 07/02/17 04:00 122 07/02/17 03:45 118 112/54 07/02/17 03:00 110 07/02/17 03:00 118 22 112/54 (73) 100 07/02/17 02:00 108 07/02/17 01:32 109 113/64 07/02/17 01:00 118 07/02/17 00:00 102 07/01/17 23:00 106 07/01/17 23:00 106 32 113/64 (80) 99 07/01/17 22:00 102 07/01/17 21:00 106 07/01/17 20:45 Nasal Cannula 3.00 07/01/17 20:00 118 07/01/17 19:00 98.1 98 20 123/80 (94) 95 07/01/17 19:00 102 07/01/17 18:00 108 07/01/17 17:00 98 07/01/17 16:00 98 07/01/17 15:00 105 07/01/17 15:00 98.1 104 18 117/71 (86) 96 07/01/17 14:00 106 07/01/17 13:43 108 114/85 07/01/17 13:00 98 I/O 07/01/17 07/01/17 07/01/17 07/02/17 07/02/17 07/02/17 06:59 14:59 22:59 06:59 14:59 22:59 Intake Total 1659 ml 825 ml 480 ml Output Total 1880 ml 1500 ml 2250 ml Balance -221 ml -675 ml -1770 ml Intake Oral 720 ml 720 ml 480 ml IV Total 939 ml 105 ml Output Urine Total 1880 ml 1500 ml 2250 ml Result Diagram: 06/29/17 0550 06/29/[address] Angiography 06/28/17 1327 Signed Impressions: Service Date/Time: Wednesday, June 28, 2017 15:58 - CONCLUSION: 1. No pulmonary embolus identified. 2. Large right-sided pleural effusion with consolidation of the right lower lobe. Srikanth Ware MD Chest X-Ray 06/28/17 1316 Signed Impressions: Service Date/Time: Wednesday, June 28, 2017 13:21 - CONCLUSION: Small right pleural effusion with associated volume loss and/or consolidation at the right lung base. Cole Garcia MD Procedures None Other Results Laboratory Tests Test 06/28/17 13:25 06/28/17 20:03 06/29/17 03:50 06/29/17 05:50 Blood Urea Nitrogen 14 MG/DL 12 MG/DL Creatinine 1.06 MG/DL 0.94 MG/DL Random Glucose 101 MG/DL 84 MG/DL Total Protein 6.9 GM/DL 6.0 GM/DL Albumin 3.2 GM/DL 2.8 GM/DL Calcium Level 8.8 MG/DL 8.4 MG/DL Magnesium Level 2.3 MG/DL Alkaline Phosphatase 107 U/L 92 U/L Aspartate Amino Transf (AST/SGOT) 25 U/L 15 U/L Alanine Aminotransferase (ALT/SGPT) 21 U/L 20 U/L Total Bilirubin 0.5 MG/DL 0.5 MG/DL Sodium Level 140 MEQ/L 140 MEQ/L Potassium Level 4.4 MEQ/L 3.8 MEQ/L Chloride Level 107 MEQ/L 107 MEQ/L Carbon Dioxide Level 26.4 MEQ/L 27.4 MEQ/L B-Type Natriuretic Peptide 418 PG/ML Lipase 152 U/L Thyroid Stimulating Hormone 3rd Gen 1.260 uIU/ML Ethyl Alcohol Level LESS THAN 3 MG/DL Urine Color YELLOW Urine Turbidity CLEAR Urine pH 5.0 Urine Specific [place] 1.039 Urine Protein NEG mg/dL Urine Glucose (UA) NEG mg/dL Urine Ketones TRACE mg/dL Urine Occult Blood NEG Urine Nitrite NEG Urine Bilirubin NEG Urine Urobilinogen LESS THAN 2.0 MG/DL Urine Leukocyte Esterase NEG Urine RBC 1 /hpf Urine WBC 1 /hpf Urine Mucus FEW /lpf Microscopic Urinalysis Comment CULT NOT INDICATED Urine Opiates Screen NEG Urine Barbiturates Screen NEG Urine Amphetamines Screen NEG Urine Benzodiazepines Screen NEG Urine Cocaine Screen NEG Urine Cannabinoids Screen NEG Total Creatine Kinase 57 U/L Troponin I 0.02 NG/ML White Blood Count 12.4 TH/MM3 Red Blood Count 4.51 MIL/MM3 Hemoglobin 11.8 GM/DL Hematocrit 38.3 % Mean Corpuscular Volume 85.0 FL Mean Corpuscular Hemoglobin 26.3 PG Mean Corpuscular Hemoglobin Concent 30.9 % Red Cell Distribution Width 17.5 % Platelet Count 256 TH/MM3 Mean Platelet Volume 9.0 FL Neutrophils (%) (Auto) 81.2 % Lymphocytes (%) (Auto) 9.2 % Monocytes (%) (Auto) 8.3 % Eosinophils (%) (Auto) 0.7 % Basophils (%) (Auto) 0.6 % Neutrophils # (Auto) 10.1 TH/MM3 Lymphocytes # (Auto) 1.1 TH/MM3 Monocytes # (Auto) 1.0 TH/MM3 Eosinophils # (Auto) 0.1 TH/MM3 Basophils # (Auto) 0.1 TH/MM3 CBC Comment DIFF FINAL Differential Comment Anion Gap 6 MEQ/L Estimat Glomerular Filtration Rate 81 ML/MIN Test 06/29/17 06:20 Prothrombin Time 12.1 SEC Prothromb Time International Ratio 1.1 RATIO Objective Remarks GENERAL: Morbid Obese patient, No acute distress. SKIN: Warm and dry. Some excoriation of the skin is noted on the abdominal wall in the lower extremities. HEAD: Atraumatic. Normocephalic. EYES: Pupils equal and round. No scleral icterus. No injection or drainage. ENT: No nasal bleeding or discharge. Mucous membranes pink and moist. NECK: Trachea midline. No JVD. CARDIOVASCULAR: Irregular rate, rhythm, tachycardic. No murmur. RESPIRATORY: Decreased breath sounds bilateral, no wheezing or crackles. GASTROINTESTINAL: Abdomen soft, non-tender, nondistended. Hepatic and splenic margins not palpable. Edema MUSCULOSKELETAL: No obvious deformities. Anasarca. NEUROLOGICAL: Awake and alert. No obvious cranial nerve deficits. Motor grossly within normal limits. Normal speech. PSYCHIATRIC: Insight and judgment appear diminished. Medications and IVs Current Medications Medications (Trade) Dose Ordered Sig/Zeinab Route Start Time Stop Time Status Last Admin (Cardizem Inj) 46 mg ONCE PRN IV PUSH 06/28/17 14:15 06/28/17 15:08 Diltiazem HCl 125 mg/Sodium Chloride 125 ml @ 5 mls/hr TITRATE PRN IV 06/28/17 14:15 07/02/17 01:32 (Lovenox Inj) 130 mg Q12H SQ 06/28/17 18:00 07/01/17 17:36 (NS Flush) 2 ml UNSCH PRN IV FLUSH 06/28/17 17:15 (NS Flush) 2 ml BID IV FLUSH 06/28/17 21:00 07/02/17 09:00 (Tylenol) 650 mg Q4H PRN PO 06/28/17 17:15 (Zofran Inj) 4 mg Q6H PRN IVP 06/28/17 17:15 (Narcan Inj) 0.4 mg UNSCH PRN IV PUSH 06/28/17 17:15 (Mehnaz-Colace) 1 tab BID PO 06/28/17 21:00 07/01/17 09:03 (Milk Of Magnesia Liq) 30 ml Q12H PRN PO 06/28/17 17:15 (Senokot) 17.2 mg Q12H PRN PO 06/28/17 17:15 (Dulcolax Supp) 10 mg DAILY PRN RECTAL 06/28/17 17:15 (Lactulose Liq) 30 ml DAILY PRN PO 06/28/17 17:15 (Atrovent Neb) 0.5 mg Q4HR NEB NEB 06/28/17 20:00 06/30/17 15:28 (Mucinex Er) 600 mg BID PO 06/28/17 21:00 07/02/17 09:42 (Lopressor) 25 mg Q12H PO 06/29/17 08:00 07/02/17 09:42 (Pepcid) 20 mg BID PO 06/29/17 21:00 07/02/17 09:42 (Ativan Inj) 1 mg Q4H PRN IV PUSH 06/30/17 01:00 07/01/17 19:50 (Librium) 10 mg TID PO 06/30/17 09:00 06/30/17 17:16 (Lasix) 20 mg BID@ PO 06/30/17 18:00 07/02/17 09:42 A/P Assessment and Plan 1. Atrial Fibrillation with RVR status post bolus of Diltiazem two time and continue drip, Cardiology following Continue Metoprolol 25 mg BID, Echocardiogram EF 30-35%, Global Hypokinesis , Mild concentric left ventricular Hypertrophy, Mild mitral valve regurgitation, continue both medicines for rate control continue A Fib. 2. Morbid Obesity strongly recommended diet and exercise 3. Acute on chronic respiratory insufficiency, multifactorial secondary to Atrial Fibrillation with RVR, probable early onset of COPD, Obesity hypoventilation syndrome, on Bronchodilator, Mucolytic and incentive spirometry. Pneumonia, the patient refused Thoracentesis, will continue present care, hr specialist following. cultures negative. 4. Edema on both extremities continue diuresis. 5. Ruled out Pneumonia the patient has Right sided Pleural effusion, refused Thoracentesis as per hr specialist continue diuresis. 6. Anasarca will add Albumin to try to improve anasarca and continue diuretics. DVT prophylaxis with Lovenox. GI protection with Famotidine. Code Status Full Code. Discussed Condition With Patient and nurse Miss Narvaez, all questions answered to the best of my abilities. Discharge Planning Once cleared by specialists. Lex Napier MD Jul 02, 2017 12:56
[2017-07-02] MEDS: ALBUMIN HUMAN 25% 25 GM/100 ML BAGP IV SCH (14:00)
--- NOTE | 2017-07-02 16:46 | PD.CARD.PN ---
Subjective Subjective Remarks Denies CP or SOB, not very cooperative Objective Medications Administered Medications Medications (Trade) Dose Ordered Sig/Zeinab Route PRN Reason Start Time Stop Time Status Last Admin Dose Admin Diltiazem HCl (Cardizem Inj) 46 mg ONCE PRN IV PUSH RESPONSE 06/28/17 14:15 06/28/17 15:08 46 MG Diltiazem HCl 125 mg/Sodium Chloride 125 ml @ 5 mls/hr TITRATE PRN IV Tachycardia 06/28/17 14:15 07/02/17 01:32 10 MLS/HR Enoxaparin Sodium (Lovenox Inj) 130 mg Q12H SQ 06/28/17 18:00 07/01/17 17:36 130 MG Sodium Chloride (NS Flush) 2 ml BID IV FLUSH 06/28/17 21:00 07/02/17 09:00 2 ML Senna/Docusate Sodium (Mehnaz-Colace) 1 tab BID PO 06/28/17 21:00 07/01/17 09:03 1 TAB Ipratropium [place] (Atrovent Neb) 0.5 mg Q4HR NEB NEB 06/28/17 20:00 06/30/17 15:28 0.5 MG Guaifenesin (Mucinex Er) 600 mg BID PO 06/28/17 21:00 07/02/17 09:42 600 MG Metoprolol Tartrate (Lopressor) 25 mg Q12H PO 06/29/17 08:00 07/02/17 09:42 25 MG Famotidine (Pepcid) 20 mg BID PO 06/29/17 21:00 07/02/17 09:42 20 MG Lorazepam (Ativan Inj) 1 mg Q4H PRN IV PUSH alcohol withdrawal symptoms 06/30/17 01:00 07/01/17 19:50 1 MG Chlordiazepoxide (Librium) 10 mg TID PO 06/30/17 09:00 06/30/17 17:16 10 MG Furosemide (Lasix) 20 mg BID@18 PO 06/30/17 18:00 07/02/17 09:42 20 MG Albumin Human (Albumin 25% Inj) 25 gm Q12H IV 07/02/17 14:00 07/02/17 14:00 25 GM Vital Signs / I&O Vital Signs Date Time Temp Pulse Resp B/P (MAP) Pulse Ox O2 Delivery O2 Flow Rate FiO2 07/02/17 16:11 109 07/02/17 15:07 98.6 97 18 129/85 (100) 98 07/02/17 15:03 124 07/02/17 14:30 108 07/02/17 13:24 108 07/02/17 12:14 105 07/02/17 11:40 98.5 88 20 111/74 (86) 98 07/02/17 11:08 92 07/02/17 11:07 97 92/77 07/02/17 10:00 95 07/02/17 09:00 96 07/02/17 09:00 90 110/52 07/02/17 08:00 92 07/02/17 07:30 97.8 99 18 106/81 (89) 97 07/02/17 07:30 123 07/02/17 07:00 123 106/81 07/02/17 06:00 114 07/02/17 05:00 110 07/02/17 04:00 122 07/02/17 03:45 118 112/54 07/02/17 03:00 110 07/02/17 03:00 118 22 112/54 (73) 100 07/02/17 02:00 108 07/02/17 01:32 109 113/64 07/02/17 01:00 118 07/02/17 00:00 102 07/01/17 23:00 106 07/01/17 23:00 106 32 113/64 (80) 99 07/01/17 22:00 102 07/01/17 21:00 106 07/01/17 20:45 Nasal Cannula 3.00 07/01/17 20:00 118 07/01/17 19:00 98.1 98 20 123/80 (94) 95 07/01/17 19:00 102 07/01/17 18:00 108 07/01/17 17:00 98 I/O 07/01/17 07/01/17 07/01/17 07/02/17 07/02/17 07/02/17 07:00 15:00 23:00 07:00 15:00 23:00 Intake Total 1659 ml 825 ml 480 ml Output Total 1880 ml 1500 ml 2250 ml Balance -221 ml -675 ml -1770 ml Intake Oral 720 ml 720 ml 480 ml IV Total 939 ml 105 ml Output Urine Total 1880 ml 1500 ml 2250 ml Physical Exam GENERAL: In NAD. SKIN: Warm and dry. HEAD: Normocephalic. EYES: No scleral icterus. No injection or drainage. NECK: Supple, trachea midline. No JVD or lymphadenopathy. CARDIOVASCULAR: Irreg, without murmurs, gallops, or rubs. RESPIRATORY: Breath sounds equal bilaterally. Few rhonchi, distant BS GASTROINTESTINAL: Abdomen soft, non-tender, nondistended. MUSCULOSKELETAL: No cyanosis, bilat LE edema. Laboratory Date/Time Source Procedure Growth Status 06/28/17 16:51 Blood Peripheral Aerobic Blood Culture - Preliminary NO GROWTH IN 4 DAYS Resulted 06/28/17 16:51 Blood Peripheral Anaerobic Blood Culture - Preliminary NO GROWTH IN 4 DAYS Resulted 06/28/17 20:03 Urine Clean Catch Legionella Antigen - Final PRESUMPTIVE NEGATIVE FOR LEGIONELLA P... Complete 06/28/17 20:03 Urine Clean Catch Streptococcus pneumoniae Antigen (M - Final PRESUMPTIVE NEGATIVE FOR STREPTOCOCCU... Complete Assessment and Plan Problem List: (1) Morbid obesity ICD Codes: E66.01 - Morbid (severe) obesity due to excess calories (2) Atrial fibrillation with RVR ICD Codes: I48.91 - Unspecified atrial fibrillation Status: Acute (3) Cardiomyopathy ICD Codes: I42.9 - Cardiomyopathy, unspecified (4) Pleural effusion ICD Codes: J90 - Pleural effusion, not elsewhere classified Status: Acute (5) ETOH abuse ICD Codes: F10.10 - Alcohol abuse, uncomplicated Assessment and Plan Continue and titrate rate control of AF, start digoxin, switch to carvedilol, wean IV diltiazem as tolerated. Echo with moderate LV dysfunction. Continue and titrate tx for CHF, switch to carvedilol, start lisinopril. Counseled to stop ETOH use. Increase activity. Pulmonary evaluation in progress. Refused thoracentesis; overall long-term prognosis poor. Poor candidate for full anticoagulation. Blair Krishnamurthy MD Jul 02, 2017 16:46
[2017-07-02] MEDS: DIGOXIN 0.25 MG TAB PO SCH (17:17)
[2017-07-02] MEDS: CARVEDILOL 12.5 MG TAB PO SCH (21:23)
[2017-07-03] VITALS (26 sets, daily range): BP systolic 91–149; BP diastolic 49–88; PULSE 77–123; RESP 18–22; TEMP 97.8–99.1; O2SAT 94–99
[2017-07-03] MEDS: ALBUMIN HUMAN 25% 25 GM/100 ML BAGP IV SCH ×2 (03:11→13:38)
[2017-07-03] MEDS: RESP: IPRATROPIUM 0.5 MG/2.5 ML NEB NEB SCH ×6 (05:19→20:31)
[2017-07-03] MEDS: ENOXAPARIN SODIUM 150 MG/ML SYRINGE SQ SCH ×2 (06:00→17:25)
[2017-07-03] MEDS: DILTIAZEM INJ 125 MG in SODIUM CHLORIDE 0.9% INJ 100 ML IV PRN (07:28)
[2017-07-03] MEDS: LISINOPRIL 5 MG TAB PO SCH (08:52)
[2017-07-03] MEDS: CARVEDILOL 12.5 MG TAB PO SCH ×2 (08:53→20:51)
[2017-07-03] MEDS: DIGOXIN 0.25 MG TAB PO SCH (08:53)
[2017-07-03] MEDS: SODIUM CHLORIDE 0.9% FLUSH 10 ML FLUSH IV FLUSH SCH ×2 (08:53→20:53)
[2017-07-03] MEDS: FAMOTIDINE 20 MG TAB PO SCH ×2 (08:53→20:51)
[2017-07-03] MEDS: DOCUSATE SODIUM 50 MG/SENNA 8.6 MG TAB PO SCH ×2 (08:53→20:51)
[2017-07-03] MEDS: FUROSEMIDE 20 MG TAB PO SCH ×2 (08:53→17:25)
[2017-07-03] MEDS: guaiFENesin E.R. 600 MG TAB PO SCH ×2 (08:53→20:51)
--- NOTE | 2017-07-03 11:32 | HHI.PR ---
Subjective Remarks This is a pleasant 62 y/o Male who complained of Shortness of breath, swelling on both legs, He denies cough, chest pain, abdominal pain, nausea or vomiting, fevers or chills, recent travel. He reports a history of "swollen about in the 1970s which limited by body for several years before I eventually killed with alcohol." Beyond that he reports a history of osteoporosis. He is a very poor historian. Per chart review the patient has been seen here in the past primarily for alcohol-related hallucinations, delirium tremens. He reports that he has not had any alcohol in the past few days-he believes that he had a bottle of wine just prior to eating a [employer] 3 days ago. He has no primary care physician. He has no other complaints at this time. seen in Emergency room in the presence of nurse, he is disheveled and very poor historian. 06/29: school psychology specialist following the patient refused Thoracentesis. 06/30: Seen in his bedroom improving respiratory saldivar, but continue with anasarca, continue diuresis at this time, his blood pressure is low continue to titrate off Cardizem and continue by mouth Beta blockers and diuretics. 07/01: Stable seen in his bedroom and discussed with nurse Miss Solange aguilar , had Echocardiogram EF 30-35%, Left ventricular systolic function reduced, global Hypokinesis. 07/02: Seen in his bedroom and discussed with Nurse aguilar assistance, considered for Psychiatry specialist evaluation and also continue in anasarca even on diuretics, he is refusing sometimes to take diuretics, will add Albumin. 07/03: Stable in his bedroom, continue with Atrial Fibrillation with RVR, school psychology specialist following, he states he is feeling.weak. Objective Vital Signs Date Time Temp Pulse Resp B/P (MAP) Pulse Ox O2 Delivery O2 Flow Rate FiO2 07/03/17 10:42 89 88/57 07/03/17 10:02 77 07/03/17 09:26 89 07/03/17 08:15 93 07/03/17 08:15 99.1 101 18 115/70 (85) 99 07/03/17 07:28 98 131/49 07/03/17 06:00 88 07/03/17 05:00 82 07/03/17 04:30 91 07/03/17 03:51 98.5 90 131/49 (76) 99 07/03/17 03:00 87 07/03/17 02:00 88 07/03/17 01:26 97.8 103 106/75 (85) 96 07/03/17 01:00 94 07/03/17 00:00 92 07/02/17 23:00 98 07/02/17 22:03 99 112/68 07/02/17 22:00 118 07/02/17 21:00 120 07/02/17 20:00 97.9 102 112/68 (83) 99 07/02/17 20:00 112 07/02/17 19:31 Nasal Cannula 3.00 07/02/17 19:00 129 07/02/17 18:00 103 07/02/17 17:06 128 116/73 07/02/17 17:00 112 07/02/17 16:11 109 07/02/17 15:07 98.6 97 18 129/85 (100) 98 07/02/17 15:03 124 07/02/17 14:30 108 07/02/17 13:24 108 07/02/17 12:14 105 07/02/17 11:40 98.5 88 20 111/74 (86) 98 I/O 07/02/17 07/02/17 07/02/17 07/03/17 07/03/17 07/03/17 07:00 15:00 23:00 07:00 15:00 23:00 Intake Total 480 ml 569 ml 870 ml Output Total 2250 ml 1400 ml 2100 ml Balance -1770 ml -831 ml -1230 ml Intake Oral 480 ml 480 ml 720 ml IV Total 89 ml 150 ml Output Urine Total 2250 ml 1400 ml 2100 ml Result Diagram: 06/29/17 0550 06/29/17 [address] Angiography 06/28/17 1327 Signed Impressions: Service Date/Time: Wednesday, June 28, 2017 15:58 - CONCLUSION: 1. No pulmonary embolus identified. 2. Large right-sided pleural effusion with consolidation of the right lower lobe. Srikanth Ware MD Chest X-Ray 06/28/17 1316 Signed Impressions: Service Date/Time: Wednesday, June 28, 2017 13:21 - CONCLUSION: Small right pleural effusion with associated volume loss and/or consolidation at the right lung base. Cole Garcia MD Procedures None Other Results Laboratory Tests Test 06/28/17 13:25 06/28/17 20:03 06/29/17 03:50 06/29/17 05:50 Blood Urea Nitrogen 14 MG/DL 12 MG/DL Creatinine 1.06 MG/DL 0.94 MG/DL Random Glucose 101 MG/DL 84 MG/DL Total Protein 6.9 GM/DL 6.0 GM/DL Albumin 3.2 GM/DL 2.8 GM/DL Calcium Level 8.8 MG/DL 8.4 MG/DL Magnesium Level 2.3 MG/DL Alkaline Phosphatase 107 U/L 92 U/L Aspartate Amino Transf (AST/SGOT) 25 U/L 15 U/L Alanine Aminotransferase (ALT/SGPT) 21 U/L 20 U/L Total Bilirubin 0.5 MG/DL 0.5 MG/DL Sodium Level 140 MEQ/L 140 MEQ/L Potassium Level 4.4 MEQ/L 3.8 MEQ/L Chloride Level 107 MEQ/L 107 MEQ/L Carbon Dioxide Level 26.4 MEQ/L 27.4 MEQ/L B-Type Natriuretic Peptide 418 PG/ML Lipase 152 U/L Thyroid Stimulating Hormone 3rd Gen 1.260 uIU/ML Ethyl Alcohol Level LESS THAN 3 MG/DL Urine Color YELLOW Urine Turbidity CLEAR Urine pH 5.0 Urine Specific [place] 1.039 Urine Protein NEG mg/dL Urine Glucose (UA) NEG mg/dL Urine Ketones TRACE mg/dL Urine Occult Blood NEG Urine Nitrite NEG Urine Bilirubin NEG Urine Urobilinogen LESS THAN 2.0 MG/DL Urine Leukocyte Esterase NEG Urine RBC 1 /hpf Urine WBC 1 /hpf Urine Mucus FEW /lpf Microscopic Urinalysis Comment CULT NOT INDICATED Urine Opiates Screen NEG Urine Barbiturates Screen NEG Urine Amphetamines Screen NEG Urine Benzodiazepines Screen NEG Urine Cocaine Screen NEG Urine Cannabinoids Screen NEG Total Creatine Kinase 57 U/L Troponin I 0.02 NG/ML White Blood Count 12.4 TH/MM3 Red Blood Count 4.51 MIL/MM3 Hemoglobin 11.8 GM/DL Hematocrit 38.3 % Mean Corpuscular Volume 85.0 FL Mean Corpuscular Hemoglobin 26.3 PG Mean Corpuscular Hemoglobin Concent 30.9 % Red Cell Distribution Width 17.5 % Platelet Count 256 TH/MM3 Mean Platelet Volume 9.0 FL Neutrophils (%) (Auto) 81.2 % Lymphocytes (%) (Auto) 9.2 % Monocytes (%) (Auto) 8.3 % Eosinophils (%) (Auto) 0.7 % Basophils (%) (Auto) 0.6 % Neutrophils # (Auto) 10.1 TH/MM3 Lymphocytes # (Auto) 1.1 TH/MM3 Monocytes # (Auto) 1.0 TH/MM3 Eosinophils # (Auto) 0.1 TH/MM3 Basophils # (Auto) 0.1 TH/MM3 CBC Comment DIFF FINAL Differential Comment Anion Gap 6 MEQ/L Estimat Glomerular Filtration Rate 81 ML/MIN Test 06/29/17 06:20 Prothrombin Time 12.1 SEC Prothromb Time International Ratio 1.1 RATIO Objective Remarks GENERAL: Morbid Obese patient, No acute distress. SKIN: Warm and dry. Some excoriation of the skin is noted on the abdominal wall in the lower extremities. HEAD: Atraumatic. Normocephalic. EYES: Pupils equal and round. No scleral icterus. No injection or drainage. ENT: No nasal bleeding or discharge. Mucous membranes pink and moist. NECK: Trachea midline. No JVD. CARDIOVASCULAR: Irregular rate, rhythm, tachycardic. No murmur. RESPIRATORY: Decreased breath sounds bilateral, no wheezing or crackles. GASTROINTESTINAL: Abdomen soft, non-tender, nondistended. Hepatic and splenic margins not palpable. Edema MUSCULOSKELETAL: No obvious deformities. Anasarca. NEUROLOGICAL: Awake and alert. No obvious cranial nerve deficits. Motor grossly within normal limits. Normal speech. PSYCHIATRIC: Insight and judgment appear diminished. Medications and IVs Current Medications Medications (Trade) Dose Ordered Sig/Zeinab Route Start Time Stop Time Status Last Admin (Cardizem Inj) 46 mg ONCE PRN IV PUSH 06/28/17 14:15 06/28/17 15:08 Diltiazem HCl 125 mg/Sodium Chloride 125 ml @ 5 mls/hr TITRATE PRN IV 06/28/17 14:15 07/03/17 07:28 (Lovenox Inj) 130 mg Q12H SQ 06/28/17 18:00 07/02/17 17:15 (NS Flush) 2 ml UNSCH PRN IV FLUSH 06/28/17 17:15 (NS Flush) 2 ml BID IV FLUSH 06/28/17 21:00 07/02/17 21:00 (Tylenol) 650 mg Q4H PRN PO 06/28/17 17:15 (Zofran Inj) 4 mg Q6H PRN IVP 06/28/17 17:15 (Narcan Inj) 0.4 mg UNSCH PRN IV PUSH 06/28/17 17:15 (Mehnaz-Colace) 1 tab BID PO 06/28/17 21:00 07/01/17 09:03 (Milk Of Magnesia Liq) 30 ml Q12H PRN PO 06/28/17 17:15 (Senokot) 17.2 mg Q12H PRN PO 06/28/17 17:15 (Dulcolax Supp) 10 mg DAILY PRN RECTAL 06/28/17 17:15 (Lactulose Liq) 30 ml DAILY PRN PO 06/28/17 17:15 (Atrovent Neb) 0.5 mg Q4HR NEB NEB 06/28/17 20:00 07/03/17 05:19 (Mucinex Er) 600 mg BID PO 06/28/17 21:00 07/03/17 08:53 (Pepcid) 20 mg BID PO 06/29/17 21:00 07/03/17 08:53 (Ativan Inj) 1 mg Q4H PRN IV PUSH 06/30/17 01:00 07/01/17 19:50 (Librium) 10 mg TID PO 06/30/17 09:00 07/03/17 08:53 (Lasix) 20 mg BID@09,18 PO 06/30/17 18:00 07/03/17 08:53 (Albumin 25% Inj) 25 gm Q12H IV 07/02/17 14:00 07/03/17 03:11 (Prinivil) 5 mg DAILY PO 07/03/17 09:00 07/03/17 08:52 (Lanoxin) 0.25 mg DAILY PO 07/02/17 16:45 07/03/17 08:53 (Coreg) 12.5 mg Q12HR PO 07/02/17 21:00 07/03/17 08:53 A/P Assessment and Plan 1. Atrial Fibrillation with RVR status post bolus of Diltiazem two time and continue drip, Cardiology following Continue Metoprolol 25 mg BID, Echocardiogram EF 30-35%, Global Hypokinesis , Mild concentric left ventricular Hypertrophy, Mild mitral valve regurgitation, continue both medicines for rate control continue A Fib. 2. Morbid Obesity strongly recommended diet and exercise 3. Acute on chronic respiratory insufficiency, multifactorial secondary to Atrial Fibrillation with RVR, probable early onset of COPD, Obesity hypoventilation syndrome, on Bronchodilator, Mucolytic and incentive spirometry. Pneumonia, the patient refused Thoracentesis, will continue present care, school psychology specialist following. cultures negative. 4. Edema on both extremities continue diuresis. 5. Ruled out Pneumonia the patient has Right sided Pleural effusion, refused Thoracentesis as per school psychology specialist continue diuresis. 6. Anasarca will add Albumin to try to improve anasarca and continue diuretics. DVT prophylaxis with Lovenox. GI protection with Famotidine. Code Status Full Code. Discussed Condition With Patient and nurse Miss Narvaez, all questions answered to the best of my abilities. Discharge Planning Once cleared by specialists. Lex Napier MD Jul 03, 2017 11:32
[2017-07-03] MEDS: LORazepam 2 MG/ML VIAL IV PUSH PRN ×2 (11:56→22:57)
[2017-07-04] VITALS (28 sets, daily range): BP systolic 93–136; BP diastolic 51–83; PULSE 81–126; RESP 16–20; TEMP 97.4–98.2; O2SAT 93–97
[2017-07-04] MEDS: RESP: IPRATROPIUM 0.5 MG/2.5 ML NEB NEB SCH ×6 (00:25→20:03)
[2017-07-04] MEDS: DILTIAZEM INJ 125 MG in SODIUM CHLORIDE 0.9% INJ 100 ML IV PRN ×2 (01:17→20:01)
[2017-07-04] MEDS: ALBUMIN HUMAN 25% 25 GM/100 ML BAGP IV SCH ×2 (01:53→13:15)
[2017-07-04] MEDS: ENOXAPARIN SODIUM 150 MG/ML SYRINGE SQ SCH ×2 (05:49→17:04)
[2017-07-04] MEDS: SODIUM CHLORIDE 0.9% FLUSH 10 ML FLUSH IV FLUSH SCH ×2 (08:41→21:00)
[2017-07-04] MEDS: LISINOPRIL 5 MG TAB PO SCH (08:42)
[2017-07-04] MEDS: CARVEDILOL 12.5 MG TAB PO SCH ×2 (08:43→21:11)
[2017-07-04] MEDS: DOCUSATE SODIUM 50 MG/SENNA 8.6 MG TAB PO SCH ×2 (08:43→21:11)
[2017-07-04] MEDS: FUROSEMIDE 20 MG TAB PO SCH ×2 (08:43→17:04)
[2017-07-04] MEDS: FAMOTIDINE 20 MG TAB PO SCH ×2 (08:43→21:11)
[2017-07-04] MEDS: DIGOXIN 0.25 MG TAB PO SCH (08:43)
[2017-07-04] MEDS: guaiFENesin E.R. 600 MG TAB PO SCH ×2 (08:43→21:11)
[2017-07-04] MEDS: LORazepam 2 MG/ML VIAL IV PUSH PRN (13:17)
--- NOTE | 2017-07-04 17:30 | HHI.PR ---
Subjective Remarks This is a pleasant 62 y/o Male who complained of Shortness of breath, swelling on both legs, He denies cough, chest pain, abdominal pain, nausea or vomiting, fevers or chills, recent travel. He reports a history of "swollen about in the 1970s which limited by body for several years before I eventually killed with alcohol." Beyond that he reports a history of osteoporosis. He is a very poor historian. Per chart review the patient has been seen here in the past primarily for alcohol-related hallucinations, delirium tremens. He reports that he has not had any alcohol in the past few days-he believes that he had a bottle of wine just prior to eating a [employer] 3 days ago. He has no primary care physician. He has no other complaints at this time. seen in Emergency room in the presence of nurse, he is disheveled and very poor historian. 06/29: clinical support specialist following the patient refused Thoracentesis. 06/30: Seen in his bedroom improving respiratory saldivar, but continue with anasarca, continue diuresis at this time, his blood pressure is low continue to titrate off Cardizem and continue by mouth Beta blockers and diuretics. 07/01: Stable seen in his bedroom and discussed with nurse Miss Solange aguilar , had Echocardiogram EF 30-35%, Left ventricular systolic function reduced, global Hypokinesis. 07/02: Seen in his bedroom and discussed with Nurse aguilar assistance, considered for Psychiatry specialist evaluation and also continue in anasarca even on diuretics, he is refusing sometimes to take diuretics, will add Albumin. 07/03: Stable in his bedroom, continue with Atrial Fibrillation with RVR, clinical support specialist following, he states he is feeling.weak. 07/04: Seen in his bedroom and discussed with nurse Miss Wadsworth no changes to anterior assessment but he is receiving Librium and Ativan will discontinue Librium and continue Ativan half dose and follow he is sleepy, also no nausea, vomit or diarrhea. Objective Vital Signs Date Time Temp Pulse Resp B/P (MAP) Pulse Ox O2 Delivery O2 Flow Rate FiO2 07/04/17 17:10 92 07/04/17 16:17 96 07/04/17 15:43 96 Nasal Cannula 3.00 07/04/17 15:43 104 07/04/17 15:43 98.0 98 20 111/73 (86) 96 07/04/17 14:05 87 07/04/17 13:01 91 07/04/17 12:00 95 07/04/17 11:40 90 07/04/17 11:40 93 Nasal Cannula 3.00 07/04/17 11:40 97.6 89 20 93/51 (65) 93 07/04/17 10:45 89 93/51 07/04/17 10:03 91 07/04/17 09:43 81 07/04/17 08:34 95 Nasal Cannula 3.00 07/04/17 08:15 97 07/04/17 08:15 97.4 96 20 123/75 (91) 95 07/04/17 08:15 95 Nasal Cannula 3.00 07/04/17 06:00 102 07/04/17 05:00 100 07/04/17 04:00 106 07/04/17 03:41 107 20 108/66 (80) 95 07/04/17 03:41 95 Nasal Cannula 3.00 07/04/17 03:00 119 07/04/17 02:00 124 07/04/17 01:17 123 137/78 07/04/17 01:00 122 07/04/17 00:00 126 07/03/17 23:05 95 Nasal Cannula 3.00 07/03/17 23:05 98.3 123 21 137/78 (97) 95 07/03/17 23:05 113 07/03/17 22:41 109 07/03/17 21:49 123 07/03/17 20:36 98 Nasal Cannula 3.00 07/03/17 20:15 118 07/03/17 19:30 98 Nasal Cannula 3.00 07/03/17 19:30 98.7 117 22 149/88 (108) 98 07/03/17 19:30 116 07/03/17 18:12 117 I/O 07/03/17 07/03/17 07/03/17 07/04/17 07/04/17 07/04/17 07:00 15:00 23:00 07:00 15:00 23:00 Intake Total 870 ml 1105 ml 500 ml 750 ml Output Total 2100 ml 1900 ml 2400 ml 2650 ml Balance -1230 ml -795 ml -1900 ml -1900 ml Intake Oral 720 ml 960 ml 500 ml 600 ml IV Total 150 ml 145 ml 150 ml Output Urine Total 2100 ml 1900 ml 2400 ml 2650 ml # Bowel Movements 0 0 [address] Angiography 06/28/17 1327 Signed Impressions: Service Date/Time: Wednesday, June 28, 2017 15:58 - CONCLUSION: 1. No pulmonary embolus identified. 2. Large right-sided pleural effusion with consolidation of the right lower lobe. Srikanth Ware MD Chest X-Ray 06/28/17 1316 Signed Impressions: Service Date/Time: Wednesday, June 28, 2017 13:21 - CONCLUSION: Small right pleural effusion with associated volume loss and/or consolidation at the right lung base. Cole Garcia MD Procedures None Other Results Laboratory Tests Test 06/28/17 13:25 06/28/17 20:03 06/29/17 03:50 06/29/17 05:50 Blood Urea Nitrogen 14 MG/DL 12 MG/DL Creatinine 1.06 MG/DL 0.94 MG/DL Random Glucose 101 MG/DL 84 MG/DL Total Protein 6.9 GM/DL 6.0 GM/DL Albumin 3.2 GM/DL 2.8 GM/DL Calcium Level 8.8 MG/DL 8.4 MG/DL Magnesium Level 2.3 MG/DL Alkaline Phosphatase 107 U/L 92 U/L Aspartate Amino Transf (AST/SGOT) 25 U/L 15 U/L Alanine Aminotransferase (ALT/SGPT) 21 U/L 20 U/L Total Bilirubin 0.5 MG/DL 0.5 MG/DL Sodium Level 140 MEQ/L 140 MEQ/L Potassium Level 4.4 MEQ/L 3.8 MEQ/L Chloride Level 107 MEQ/L 107 MEQ/L Carbon Dioxide Level 26.4 MEQ/L 27.4 MEQ/L B-Type Natriuretic Peptide 418 PG/ML Lipase 152 U/L Thyroid Stimulating Hormone 3rd Gen 1.260 uIU/ML Ethyl Alcohol Level LESS THAN 3 MG/DL Urine Color YELLOW Urine Turbidity CLEAR Urine pH 5.0 Urine Specific [place] 1.039 Urine Protein NEG mg/dL Urine Glucose (UA) NEG mg/dL Urine Ketones TRACE mg/dL Urine Occult Blood NEG Urine Nitrite NEG Urine Bilirubin NEG Urine Urobilinogen LESS THAN 2.0 MG/DL Urine Leukocyte Esterase NEG Urine RBC 1 /hpf Urine WBC 1 /hpf Urine Mucus FEW /lpf Microscopic Urinalysis Comment CULT NOT INDICATED Urine Opiates Screen NEG Urine Barbiturates Screen NEG Urine Amphetamines Screen NEG Urine Benzodiazepines Screen NEG Urine Cocaine Screen NEG Urine Cannabinoids Screen NEG Total Creatine Kinase 57 U/L Troponin I 0.02 NG/ML White Blood Count 12.4 TH/MM3 Red Blood Count 4.51 MIL/MM3 Hemoglobin 11.8 GM/DL Hematocrit 38.3 % Mean Corpuscular Volume 85.0 FL Mean Corpuscular Hemoglobin 26.3 PG Mean Corpuscular Hemoglobin Concent 30.9 % Red Cell Distribution Width 17.5 % Platelet Count 256 TH/MM3 Mean Platelet Volume 9.0 FL Neutrophils (%) (Auto) 81.2 % Lymphocytes (%) (Auto) 9.2 % Monocytes (%) (Auto) 8.3 % Eosinophils (%) (Auto) 0.7 % Basophils (%) (Auto) 0.6 % Neutrophils # (Auto) 10.1 TH/MM3 Lymphocytes # (Auto) 1.1 TH/MM3 Monocytes # (Auto) 1.0 TH/MM3 Eosinophils # (Auto) 0.1 TH/MM3 Basophils # (Auto) 0.1 TH/MM3 CBC Comment DIFF FINAL Differential Comment Anion Gap 6 MEQ/L Estimat Glomerular Filtration Rate 81 ML/MIN Test 06/29/17 06:20 Prothrombin Time 12.1 SEC Prothromb Time International Ratio 1.1 RATIO Objective Remarks GENERAL: Morbid Obese patient, No acute distress. SKIN: Warm and dry. Some excoriation of the skin is noted on the abdominal wall in the lower extremities. HEAD: Atraumatic. Normocephalic. EYES: Pupils equal and round. No scleral icterus. No injection or drainage. ENT: No nasal bleeding or discharge. Mucous membranes pink and moist. NECK: Trachea midline. No JVD. CARDIOVASCULAR: Irregular rate, rhythm, tachycardic. No murmur. RESPIRATORY: Decreased breath sounds bilateral, no wheezing or crackles. GASTROINTESTINAL: Abdomen soft, non-tender, nondistended. Hepatic and splenic margins not palpable. Edema MUSCULOSKELETAL: No obvious deformities. Anasarca. NEUROLOGICAL: Awake and alert. No obvious cranial nerve deficits. Motor grossly within normal limits. Normal speech. PSYCHIATRIC: Insight and judgment appear diminished. Medications and IVs Current Medications Medications (Trade) Dose Ordered Sig/Zeinab Route Start Time Stop Time Status Last Admin (Cardizem Inj) 46 mg ONCE PRN IV PUSH 06/28/17 14:15 06/28/17 15:08 Diltiazem HCl 125 mg/Sodium Chloride 125 ml @ 5 mls/hr TITRATE PRN IV 06/28/17 14:15 07/04/17 01:17 (Lovenox Inj) 130 mg Q12H SQ 06/28/17 18:00 07/04/17 17:04 (NS Flush) 2 ml UNSCH PRN IV FLUSH 06/28/17 17:15 (NS Flush) 2 ml BID IV FLUSH 06/28/17 21:00 07/03/17 20:53 (Tylenol) 650 mg Q4H PRN PO 06/28/17 17:15 (Zofran Inj) 4 mg Q6H PRN IVP 06/28/17 17:15 (Narcan Inj) 0.4 mg UNSCH PRN IV PUSH 06/28/17 17:15 (Mehnaz-Colace) 1 tab BID PO 06/28/17 21:00 07/04/17 08:43 (Milk Of Magnesia Liq) 30 ml Q12H PRN PO 06/28/17 17:15 (Senokot) 17.2 mg Q12H PRN PO 06/28/17 17:15 (Dulcolax Supp) 10 mg DAILY PRN RECTAL 06/28/17 17:15 (Lactulose Liq) 30 ml DAILY PRN PO 06/28/17 17:15 (Atrovent Neb) 0.5 mg Q4HR NEB NEB 06/28/17 20:00 07/04/17 15:20 (Mucinex Er) 600 mg BID PO 06/28/17 21:00 07/04/17 08:43 (Pepcid) 20 mg BID PO 06/29/17 21:00 07/04/17 08:43 (Lasix) 20 mg BID@,18 PO 06/30/17 18:00 07/04/17 17:04 (Albumin 25% Inj) 25 gm Q12H IV 07/02/17 14:00 07/04/17 13:15 (Prinivil) 5 mg DAILY PO 07/03/17 09:00 07/04/17 08:42 (Lanoxin) 0.25 mg DAILY PO 07/02/17 16:45 07/04/17 08:43 (Coreg) 12.5 mg Q12HR PO 07/02/17 21:00 07/04/17 08:43 (Ativan Inj) 0.5 mg Q6H PRN IV PUSH 07/04/17 17:30 UNV A/P Assessment and Plan 1. Atrial Fibrillation with RVR status post bolus of Diltiazem two time and continue drip, Cardiology following Continue Metoprolol 25 mg BID, Echocardiogram EF 30-35%, Global Hypokinesis , Mild concentric left ventricular Hypertrophy, Mild mitral valve regurgitation, as per Cardiology to continue Digoxin, switch to Coreg and Cardizem continue Diuresis. 2. Morbid Obesity strongly recommended diet and exercise 3. Acute on chronic respiratory insufficiency, multifactorial secondary to Atrial Fibrillation with RVR, probable early onset of COPD, Obesity hypoventilation syndrome, on Bronchodilator, Mucolytic and incentive spirometry. Pneumonia, the patient refused Thoracentesis, will continue present care, clinical support specialist following. cultures negative. 4. Edema on both extremities continue diuresis. 5. Ruled out Pneumonia the patient has Right sided Pleural effusion, refused Thoracentesis as per clinical support specialist continue diuresis. 6. Anasarca will add Albumin to try to improve anasarca and continue diuretics. DVT prophylaxis with Lovenox. GI protection with Famotidine. Code Status Full Code. Discussed Condition With Patient and nurse Miss Narvaez, all questions answered to the best of my abilities. Discharge Planning Once cleared by specialists. Lex Napier MD Jul 04, 2017 17:30
[2017-07-05] VITALS (27 sets, daily range): BP systolic 98–157; BP diastolic 55–88; PULSE 98–124; RESP 18–20; TEMP 98.1–98.7; O2SAT 94–98
[2017-07-05] MEDS: RESP: IPRATROPIUM 0.5 MG/2.5 ML NEB NEB SCH ×7 (00:26→23:42)
[2017-07-05] MEDS: ALBUMIN HUMAN 25% 25 GM/100 ML BAGP IV SCH ×2 (01:32→13:12)
[2017-07-05] MEDS: LORazepam 2 MG/ML VIAL IV PUSH PRN ×4 (02:16→23:16)
[2017-07-05] MEDS: ENOXAPARIN SODIUM 150 MG/ML SYRINGE SQ SCH ×2 (05:03→17:09)
[2017-07-05] MEDS: DIGOXIN 0.25 MG TAB PO SCH (08:21)
[2017-07-05] MEDS: guaiFENesin E.R. 600 MG TAB PO SCH ×2 (08:21→21:25)
[2017-07-05] MEDS: CARVEDILOL 12.5 MG TAB PO SCH ×3 (08:21→21:25)
[2017-07-05] MEDS: FAMOTIDINE 20 MG TAB PO SCH ×2 (08:21→21:25)
[2017-07-05] MEDS: DOCUSATE SODIUM 50 MG/SENNA 8.6 MG TAB PO SCH ×2 (08:22→21:25)
[2017-07-05] MEDS: LISINOPRIL 5 MG TAB PO SCH (08:22)
[2017-07-05] MEDS: FUROSEMIDE 20 MG TAB PO SCH ×2 (08:22→17:09)
[2017-07-05] MEDS: SODIUM CHLORIDE 0.9% FLUSH 10 ML FLUSH IV FLUSH SCH ×2 (08:22→21:25)
--- NOTE | 2017-07-05 08:36 | PD.CARD.PN ---
Subjective Subjective Remarks No CP or SOB, c/o being swollen Objective Medications Administered Medications Medications (Trade) Dose Ordered Sig/Zeinab Route PRN Reason Start Time Stop Time Status Last Admin Dose Admin Diltiazem HCl (Cardizem Inj) 46 mg ONCE PRN IV PUSH RESPONSE 06/28/17 14:15 06/28/17 15:08 Diltiazem HCl 125 mg/Sodium Chloride 125 ml @ 5 mls/hr TITRATE PRN IV Tachycardia 06/28/17 14:15 07/04/17 20:01 Enoxaparin Sodium (Lovenox Inj) 130 mg Q12H SQ 06/28/17 18:00 07/05/17 05:03 Sodium Chloride (NS Flush) 2 ml BID IV FLUSH 06/28/17 21:00 07/05/17 08:22 Senna/Docusate Sodium (Mehnaz-Colace) 1 tab BID PO 06/28/17 21:00 07/05/17 08:22 Ipratropium [place] (Atrovent Neb) 0.5 mg Q4HR NEB NEB 06/28/17 20:00 07/05/17 07:28 Guaifenesin (Mucinex Er) 600 mg BID PO 06/28/17 21:00 07/05/17 08:21 Famotidine (Pepcid) 20 mg BID PO 06/29/17 21:00 07/05/17 08:21 Furosemide (Lasix) 20 mg BID@09,18 PO 06/30/17 18:00 07/05/17 08:22 Albumin Human (Albumin 25% Inj) 25 gm Q12H IV 07/02/17 14:00 07/05/17 01:32 Lisinopril (Prinivil) 5 mg DAILY PO 07/03/17 09:00 07/05/17 08:22 Digoxin (Lanoxin) 0.25 mg DAILY PO 07/02/17 16:45 07/05/17 08:21 Carvedilol (Coreg) 12.5 mg Q12HR PO 07/02/17 21:00 07/05/17 08:21 Lorazepam (Ativan Inj) 0.5 mg Q6H PRN IV PUSH MODERATE TO SEVERE ANXIETY 07/04/17 17:30 07/05/17 08:28 Vital Signs / I&O Vital Signs Date Time Temp Pulse Resp B/P (MAP) Pulse Ox O2 Delivery O2 Flow Rate FiO2 07/05/17 07:30 98 Nasal Cannula 2.00 07/05/17 07:00 105 07/05/17 06:00 114 07/05/17 05:00 112 07/05/17 04:00 104 07/05/17 03:35 96 Nasal Cannula 3.00 07/05/17 03:34 107 18 124/86 (99) 96 07/05/17 03:00 98 07/05/17 02:00 104 07/05/17 01:00 102 07/05/17 00:00 100 07/04/17 23:22 98 18 136/83 (100) 96 07/04/17 23:22 96 Nasal Cannula 3.00 07/04/17 23:00 107 07/04/17 22:00 106 07/04/17 21:00 98 07/04/17 20:04 97 Nasal Cannula 2.00 07/04/17 20:01 102 122/73 07/04/17 20:00 100 07/04/17 19:50 97 Nasal Cannula 3.00 07/04/17 19:50 98.2 102 16 122/73 (89) 97 07/04/17 19:00 100 07/04/17 18:01 95 07/04/17 17:10 92 07/04/17 16:17 96 07/04/17 15:43 96 Nasal Cannula 3.00 07/04/17 15:43 104 07/04/17 15:43 98.0 98 20 111/73 (86) 96 07/04/17 14:05 87 07/04/17 13:01 91 07/04/17 12:00 95 07/04/17 11:40 90 07/04/17 11:40 93 Nasal Cannula 3.00 07/04/17 11:40 97.6 89 20 93/51 (65) 93 07/04/17 10:45 89 93/51 07/04/17 10:03 91 07/04/17 09:43 81 07/04/17 08:34 95 Nasal Cannula 3.00 I/O 07/04/17 07/04/17 07/04/17 07/05/17 07/05/17 07/05/17 07:00 15:00 23:00 07:00 15:00 23:00 Intake Total 500 ml 875 ml 1050 ml Output Total 2400 ml 2650 ml 2600 ml Balance -1900 ml -1775 ml -1550 ml Intake Oral 500 ml 600 ml 950 ml IV Total 275 ml 100 ml Output Urine Total 2400 ml 2650 ml 2600 ml # Bowel Movements 0 0 0 Physical Exam GENERAL: In NAD. SKIN: Warm and dry. HEAD: Normocephalic. EYES: No scleral icterus. No injection or drainage. NECK: Supple, trachea midline. No JVD or lymphadenopathy. CARDIOVASCULAR: Irreg, without murmurs, gallops, or rubs. RESPIRATORY: Breath sounds equal bilaterally. Few rhonchi, distant BS GASTROINTESTINAL: Abdomen soft, non-tender, nondistended. MUSCULOSKELETAL: No cyanosis, bilat LE edema. Laboratory Date/Time Source Procedure Growth Status 06/28/17 16:51 Blood Peripheral Aerobic Blood Culture - Final NO GROWTH IN 5 DAYS Complete 06/28/17 16:51 Blood Peripheral Anaerobic Blood Culture - Final NO GROWTH IN 5 DAYS Complete 06/28/17 20:03 Urine Clean Catch Legionella Antigen - Final PRESUMPTIVE NEGATIVE FOR LEGIONELLA P... Complete 06/28/17 20:03 Urine Clean Catch Streptococcus pneumoniae Antigen (M - Final PRESUMPTIVE NEGATIVE FOR STREPTOCOCCU... Complete Assessment and Plan Problem List: (1) Morbid obesity ICD Codes: E66.01 - Morbid (severe) obesity due to excess calories (2) Atrial fibrillation with RVR ICD Codes: I48.91 - Unspecified atrial fibrillation Status: Acute (3) Cardiomyopathy ICD Codes: I42.9 - Cardiomyopathy, unspecified (4) Pleural effusion ICD Codes: J90 - Pleural effusion, not elsewhere classified Status: Acute (5) ETOH abuse ICD Codes: F10.10 - Alcohol abuse, uncomplicated Assessment and Plan No new cardiac issues. Continue and titrate rate control of AF, continue digoxin , titrate carvedilol, DC IV diltiazem. Echo with moderate LV dysfunction. Continue and titrate tx for CHF, continue carvedilol, started lisinopril. Counseled to stop ETOH use. Increase activity. Pulmonary evaluation in progress. Refused thoracentesis; overall long-term prognosis poor. Poor candidate for full anticoagulation due to noncompliance. Social service evaluation for placement in progress (lives alone). Blair Krishnamurthy MD Jul 05, 2017 08:36
[2017-07-05] MEDS: LISINOPRIL 10 MG TAB PO SCH (08:45)
[2017-07-05 09:07] LABS: AUTOMATED NEUTROPHIL # 6.9 TH/MM3 (1.8-7.7); BASOPHIL # 0.1 TH/MM3 (0-0.2); BASOPHIL % 0.6 % (0.0-2.0); EOSINOPHIL # 0.1 TH/MM3 (0-0.4); EOSINOPHIL % 1.6 % (0.0-4.0); HEMATOCRIT 37.2 % (39.0-51.0); HEMO FLAGS DIFF FINAL; LYMPH % 9.3 % (9.0-44.0); LYMPHOCYTE # 0.8 TH/MM3 (1.0-4.8); MEAN CELL VOLUME 84.3 FL (80.0-100.0); MEAN CORPUSCULAR HGB CONC 30.8 % (32.0-36.0); NEUT % 77.5 % (16.0-70.0); PLATELET COUNT 210 TH/MM3 (150-450); RED BLOOD COUNT 4.41 MIL/MM3 (4.50-5.90); RED CELL DISTRIBUTION WIDTH 17.6 % (11.6-17.2); WHITE BLOOD COUNT 8.9 TH/MM3 (4.0-11.0)
[2017-07-05 10:18] LABS: BICARBONATE 37.5 MEQ/L (21.0-32.0); MAGNESIUM 2.5 MG/DL (1.5-2.5); POTASSIUM 3.7 MEQ/L (3.5-5.1)
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
[2017-07-05] MEDS: AMOXICILLIN/CLAVULANATE K 875 MG TAB PO SCH (16:00)
--- NOTE | 2017-07-05 20:28 | HHI.PR ---
Subjective Remarks 62 YO Obese WM mild SOB " My body is poisoned, nothing wrong with my Heart" Echo EF 30-35 % RVSP 41 Uncooperative, adamentally refuses TC Has swelling legs, wants more pain meds Objective Vital Signs Vital Signs Date Time Temp Pulse Resp B/P (MAP) Pulse Ox O2 Delivery O2 Flow Rate FiO2 07/05/17 19:35 97 Nasal Cannula 2.00 07/05/17 19:00 117 07/05/17 18:00 120 07/05/17 17:00 118 07/05/17 16:00 Nasal Cannula 3.00 07/05/17 16:00 123 07/05/17 16:00 98.4 112 20 157/84 (108) 97 07/05/17 15:00 116 07/05/17 14:00 110 07/05/17 13:00 108 07/05/17 12:00 107 07/05/17 12:00 Nasal Cannula 3.00 07/05/17 12:00 98.6 106 20 117/77 (90) 94 07/05/17 11:00 106 07/05/17 10:00 100 07/05/17 09:00 110 07/05/17 08:00 Nasal Cannula 3.00 07/05/17 08:00 98 07/05/17 08:00 98.7 98 20 145/88 (107) 95 07/05/17 07:30 98 Nasal Cannula 2.00 07/05/17 07:00 105 07/05/17 07:00 104 07/05/17 06:00 114 07/05/17 05:00 112 07/05/17 04:00 104 07/05/17 03:35 96 Nasal Cannula 3.00 07/05/17 03:34 107 18 124/86 (99) 96 07/05/17 03:00 98 07/05/17 02:00 104 07/05/17 01:00 102 07/05/17 00:00 100 07/04/17 23:22 98 18 136/83 (100) 96 07/04/17 23:22 96 Nasal Cannula 3.00 07/04/17 23:00 107 07/04/17 22:00 106 07/04/17 21:00 98 I/O 07/04/17 07/04/17 07/04/17 07/05/17 07/05/1725/17 07:00 15:00 23:00 07:00 15:00 23:00 Intake Total 500 ml 875 ml 1050 ml 100 ml 1780 ml Output Total 2400 ml 2650 ml 2600 ml 2400 ml Balance -1900 ml -1775 ml -1550 ml 100 ml -620 ml Intake Oral 500 ml 600 ml 950 ml 1680 ml IV Total 275 ml 100 ml 100 ml 100 ml Output Urine Total 2400 ml 2650 ml 2600 ml 2400 ml # Bowel Movements 0 0 0 1 Result Diagram: 07/05/1775407/05/17754 Objective Remarks GENERAL: Obese Wm mild sob SKIN: Warm and dry. HEAD: Normocephalic. EYES: No scleral icterus. No injection or drainage. NECK: Supple, trachea midline. No JVD or lymphadenopathy. CARDIOVASCULAR: Regular rate and rhythm without murmurs, gallops, or rubs. RESPIRATORY: Breath sounds equal bilaterally. No accessory muscle use. Decreased BS at bases GASTROINTESTINAL: Abdomen soft, non-tender, nondistended. MUSCULOSKELETAL: No cyanosis, ++ edema. BACK: Nontender without obvious deformity. No CVA tenderness. A/P Assessment and Plan Bilat Pleural effusion CHF CMP AF PHTN ETOH use PLAN: Diurease Aerosol nebs prn SQ Heparin Supplement 02 Stable on Lacho Leon MD Jul 05, 2017 20:28
[2017-07-06] VITALS (21 sets, daily range): BP systolic 109–153; BP diastolic 61–102; PULSE 105–131; RESP 18–20; TEMP 97.8–98.1; O2SAT 98–100
[2017-07-06] MEDS ORDERED: ACETAMINOPHEN/HYDROcodone 325 MG/5 MG TAB PO ONE (00:45)
[2017-07-06] MEDS: ALBUMIN HUMAN 25% 25 GM/100 ML BAGP IV SCH ×2 (01:56→14:26)
[2017-07-06] MEDS: RESP: IPRATROPIUM 0.5 MG/2.5 ML NEB NEB SCH ×5 (03:14→22:44)
[2017-07-06] MEDS: AMOXICILLIN/CLAVULANATE K 875 MG TAB PO SCH ×2 (03:51→16:00)
[2017-07-06] MEDS: ACETAMINOPHEN/HYDROcodone 325 MG/5 MG TAB PO PRN ×2 (05:16→12:32)
[2017-07-06] MEDS: ENOXAPARIN SODIUM 150 MG/ML SYRINGE SQ SCH (05:16)
[2017-07-06 06:41] LABS: PROTHROMBIN TIME - PATIENT 11.2 SEC (9.8-11.6)
[2017-07-06 06:59] LABS: BICARBONATE 36.2 MEQ/L (21.0-32.0); POTASSIUM 4.2 MEQ/L (3.5-5.1)
[2017-07-06] MEDS: SODIUM CHLORIDE 0.9% FLUSH 10 ML FLUSH IV FLUSH SCH (07:55)
[2017-07-06] MEDS: DIGOXIN 0.25 MG TAB PO SCH (07:56)
[2017-07-06] MEDS: FUROSEMIDE 20 MG TAB PO SCH ×2 (07:56→18:00)
[2017-07-06] MEDS: DOCUSATE SODIUM 50 MG/SENNA 8.6 MG TAB PO SCH ×2 (07:56→21:00)
[2017-07-06] MEDS: guaiFENesin E.R. 600 MG TAB PO SCH ×2 (07:56→21:00)
[2017-07-06] MEDS: FAMOTIDINE 20 MG TAB PO SCH ×2 (07:56→21:00)
[2017-07-06] MEDS: LISINOPRIL 10 MG TAB PO SCH (07:56)
[2017-07-06] MEDS: CARVEDILOL 12.5 MG TAB PO SCH ×2 (07:56→21:00)
--- NOTE | 2017-07-06 09:12 | RADRPT ---
EXAM DATE/TIME: 10/10/2006 23:05 [place] COMPARISON: No previous studies available for comparison. INDICATIONS : Bilateral leg swelling and pain. MEDICAL HISTORY : Myocardial infarction. Hypertension. SURGICAL HISTORY : Tonsillectomy.Coronary artery stent. Right shoulder surgery. ENCOUNTER: Initial ACUITY: 2 weeks PAIN SCORE: 8/10 LOCATION: Bilateral legs. TECHNIQUE: Venous ultrasound of the left and right leg was performed from the inguinal ligament to the proximal calf. Real-time, color Doppler and spectral tracing, compression and augmentation techniques were us ed. FINDINGS: RIGHT LEG: There is normal compressibility of the deep venous system from the inguinal region to the proximal ca lf. No echogenic clot is seen in the lumen of the common femoral, femoral, popliteal, and posterior tibial veins. There is a normal response of the venous system to proximal and distal augmentation an d respiration. LEFT LEG: There is normal compressibility of the deep venous system from the inguinal region to the proximal ca lf. No echogenic clot is seen in the lumen of the common femoral, femoral, popliteal, and posterior tibial veins. There is a normal response of the venous system to proximal and distal augmentation an d respiration. CONCLUSION: No evidence for DVT. There is subcutaneous edema of the calves bilaterally. Chinedu Henderson MD on July 06, 2017 at 9:10 Board Certified Radiologist. This report was verified electronically.
[2017-07-06] MEDS ORDERED: ONDANSETRON HCL 4 MG/2 ML VIAL IV PUSH ONE (12:00)
[2017-07-06] MEDS ORDERED: PHENYLEPHRINE HCL 10 MG/ML VIAL IV ONE (12:00)
[2017-07-06] MEDS ORDERED: ePHEDrine/NS 25 MG/5 ML SYR IV ONE (12:00)
[2017-07-06] MEDS ORDERED: SUCCINYLCHOLINE CHLORIDE 100 MG/5 ML SYRINGE IV PUSH ONE (12:00)
[2017-07-06] MEDS ORDERED: SODIUM CHLORIDE 0.9% 20 ML VIAL IV ONE (12:00)
[2017-07-06] MEDS ORDERED: ESMOLOL HCL 100 MG/10 ML VIAL IV ONE (12:00)
[2017-07-06] MEDS ORDERED: LIDOCAINE HCL 1% PF 5 ML AMPULE OTHER ONE (12:00)
[2017-07-06] MEDS ORDERED: PROPOFOL 200 MG/20 ML AMP IV ONE (12:00)
[2017-07-06] MEDS ORDERED: PHENYLEPH/NS 1000 MCG/10 ML SYR IV ONE (12:00)
[2017-07-06] MEDS ORDERED: EPINEPHrine HCL (1:1000) 1 MG/ML VIAL IV ONE (12:00)
[2017-07-06] MEDS ORDERED: VECURONIUM BROMIDE 20 MG VIAL IV ONE (12:00)
[2017-07-06] MEDS ORDERED: ROCURONIUM INJ 50 MG/5 ML SYRINGE IV PUSH ONE (12:00)
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
--- NOTE | 2017-07-06 14:32 | PD.CARD.PN ---
Subjective Subjective Remarks No CP, mild SOB, LE hematoma with bleeding Objective Medications Administered Medications Medications (Trade) Dose Ordered Sig/Zeinab Route PRN Reason Start Time Stop Time Status Last Admin Dose Admin Diltiazem HCl (Cardizem Inj) 46 mg ONCE PRN IV PUSH RESPONSE 06/28/17 14:15 06/28/17 15:08 Sodium Chloride (NS Flush) 2 ml BID IV FLUSH 06/28/17 21:00 07/06/17 07:55 Senna/Docusate Sodium (Mehnaz-Colace) 1 tab BID PO 06/28/17 21:00 07/06/17 07:56 Ipratropium [place] (Atrovent Neb) 0.5 mg Q4HR NEB NEB 06/28/17 20:00 07/05/17 19:33 Guaifenesin (Mucinex Er) 600 mg BID PO 06/28/17 21:00 07/06/17 07:56 Famotidine (Pepcid) 20 mg BID PO 06/29/17 21:00 07/06/17 07:56 Furosemide (Lasix) 20 mg BID@18 PO 06/30/17 18:00 07/06/17 07:56 Albumin Human (Albumin 25% Inj) 25 gm Q12H IV 07/02/17 14:00 07/06/17 14:26 Digoxin (Lanoxin) 0.25 mg DAILY PO 07/02/17 16:45 07/06/17 07:56 Lorazepam (Ativan Inj) 0.5 mg Q6H PRN IV PUSH MODERATE TO SEVERE ANXIETY 07/04/17 17:30 07/05/17 23:16 Carvedilol (Coreg) 25 mg Q12HR PO 07/05/17 09:00 07/06/17 07:56 Lisinopril (Prinivil) 10 mg DAILY PO 07/05/17 09:00 07/06/17 07:56 Amoxicillin/ Clavulanate Potassium (Augmentin) 875 mg Q12H PO 07/05/17 16:00 07/06/17 03:51 Acetaminophen/ Hydrocodone Bitart ([place] 5-325 Mg) 1 tab Q4H PRN PO PAIN>5 07/06/17 05:15 07/06/17 12:32 Vital Signs / I&O Vital Signs Date Time Temp Pulse Resp B/P (MAP) Pulse Ox O2 Delivery O2 Flow Rate FiO2 07/06/17 12:08 97.9 111 19 135/86 (102) 98 07/06/17 11:00 Nasal Cannula 3.00 07/06/17 10:00 106 07/06/17 09:00 105 07/06/17 08:00 116 07/06/17 07:30 97.8 113 19 153/102 (119) 98 07/06/17 07:24 Nasal Cannula 3.00 07/06/17 07:22 131 07/06/17 06:00 114 07/06/17 05:00 110 07/06/17 04:00 119 07/06/17 03:00 96 Nasal Cannula 3.00 07/06/17 03:00 97.8 116 20 130/94 (106) 07/06/17 03:00 114 07/06/17 02:00 106 07/06/17 01:00 114 07/06/17 00:00 120 07/05/17 23:00 98.1 123 20 108/69 (82) 96 07/05/17 23:00 96 Nasal Cannula 3.00 07/05/17 23:00 111 07/05/17 21:34 124/76 (92) 07/05/17 21:00 124 07/05/17 20:00 120 07/05/17 20:00 98.1 113 20 98/55 (69) 95 07/05/17 20:00 95 Nasal Cannula 3.00 07/05/17 19:35 97 Nasal Cannula 2.00 07/05/17 19:00 117 07/05/17 18:00 120 07/05/17 17:00 118 07/05/17 16:00 Nasal Cannula 3.00 07/05/17 16:00 123 07/05/17 16:00 98.4 112 20 157/84 (108) 97 07/05/17 15:00 116 I/O 07/05/17 07/05/17 07/05/17 07/06/17 07/06/17 07/06/17 07:00 15:00 23:00 07:00 15:00 23:00 Intake Total 1050 ml 100 ml 1780 ml 1060 ml Output Total 2600 ml 2400 ml 2180 ml Balance -1550 ml 100 ml -620 ml -1120 ml Intake Oral 950 ml 1680 ml 960 ml IV Total 100 ml 100 ml 100 ml Other 100 ml Output Urine Total 2600 ml 2400 ml 2180 ml # Bowel Movements 0 1 Physical Exam GENERAL: In NAD. SKIN: Warm and dry. HEAD: Normocephalic. EYES: No scleral icterus. No injection or drainage. NECK: Supple, trachea midline. No JVD or lymphadenopathy. CARDIOVASCULAR: Irreg, without murmurs, gallops, or rubs. RESPIRATORY: Breath sounds equal bilaterally. Few rhonchi, distant BS GASTROINTESTINAL: Abdomen soft, non-tender, nondistended. MUSCULOSKELETAL: No cyanosis, bilat LE edema, hematoma w mild active bleeding Laboratory Laboratory Tests Test 07/06/17 06:03 Prothrombin Time 11.2 SEC Prothromb Time International Ratio 1.0 RATIO Blood Urea Nitrogen 11 MG/DL Creatinine 0.86 MG/DL Random Glucose 122 MG/DL Calcium Level 9.0 MG/DL Sodium Level 139 MEQ/L Potassium Level 4.2 MEQ/L Chloride Level 99 MEQ/L Carbon Dioxide Level 36.2 MEQ/L Anion Gap 4 MEQ/L Estimat Glomerular Filtration Rate 90 ML/MIN Imaging Last 24 hours Impressions Lower Extremity Ultrasound 07/06/17 0000 Signed Impressions: Service Date/Time: Tuesday, October 10, 2006 23:05 - CONCLUSION: No evidence for DVT. There is subcutaneous edema of the calves bilaterally. Chinedu Henderson MD Assessment and Plan Problem List: (1) Morbid obesity ICD Codes: E66.01 - Morbid (severe) obesity due to excess calories (2) Atrial fibrillation with RVR ICD Codes: I48.91 - Unspecified atrial fibrillation Status: Acute (3) Cardiomyopathy ICD Codes: I42.9 - Cardiomyopathy, unspecified (4) Pleural effusion ICD Codes: J90 - Pleural effusion, not elsewhere classified Status: Acute (5) ETOH abuse ICD Codes: F10.10 - Alcohol abuse, uncomplicated Assessment and Plan No new cardiac issues. Very difficult patient. Continue and titrate rate control of AF, continue digoxin, titrate carvedilol, DC IV diltiazem, start PO diltiazem if necessary. Echo with moderate LV dysfunction. Continue and titrate tx for CHF, continue carvedilol, started lisinopril. Counseled to stop ETOH use. Increase activity. Pulmonary evaluation in progress. Refused thoracentesis ; overall long-term prognosis poor. Poor candidate for full anticoagulation due to noncompliance. Social service evaluation for placement in progress (lives alone). Blair Krishnamurthy MD Jul 06, 2017 14:32
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
[2017-07-06 15:40] LABS: HEMATOCRIT 28.3 % (39.0-51.0); MEAN CELL VOLUME 84.2 FL (80.0-100.0); MEAN CORPUSCULAR HEMOGLOBIN 25.4 PG (27.0-34.0); MEAN CORPUSCULAR HGB CONC 30.2 % (32.0-36.0); PLATELET COUNT 200 TH/MM3 (150-450); RED BLOOD COUNT 3.36 MIL/MM3 (4.50-5.90); RED CELL DISTRIBUTION WIDTH 17.3 % (11.6-17.2); REVIEW FLAG FINAL; WHITE BLOOD COUNT 13.8 TH/MM3 (4.0-11.0)
--- NOTE | 2017-07-06 16:04 | RADRPT ---
EXAM DATE/TIME: 07/06/2017 13:20 [place] COMPARISON: US LEG BILATERAL VENOUS DOPPLER, October 10, 2006, 23:05. INDICATIONS : Fluid Collection. MEDICAL HISTORY : Myocardial infarction. CAD. Hypertension. PTSD. Depression. Substance abuse. ETOH abuse. A.FIB. SURGICAL HISTORY : Tonsillectomy. Eye surgery. Cardiac stents. Right shoulder surgery. ENCOUNTER: Initial ACUITY: 1 day PAIN SCORE: 10/10 LOCATION: Right leg. AREA EVALUATED: Right lateral calf. FINDINGS: Examination demonstrates a very large collection in the subcutaneous tissues of the right lateral lester f. This appears complex but is predominantly solid. Primary differential considerations would be a la rge hematoma. This should be followed clinically to ensure does not enlarge. If the patient has no hi story of trauma to this area or is not on anticoagulants MRI imaging would be warranted to exclude a soft tissue mass. Other considerations would include abscess. CONCLUSION: 1. Probable large hematoma in the right calf this measures at least 36 x 5 x 7.6 cm. Please see above discussion. Srikanth Ware MD on July 06, 2017 at 16:00 Board Certified Radiologist. This report was verified electronically.
[2017-07-06] MEDS ORDERED: MORPHINE SULFATE 4 MG/ML INJ IV PUSH ONE (16:15)
[2017-07-06] MEDS ORDERED: GENTAMICIN SULFATE 80 MG/2 ML VIAL ONE (17:12)
[2017-07-06] MEDS ORDERED: VANCOMYCIN HCL 1000 MG VIAL ONE (17:12)
[2017-07-06] MEDS ORDERED: ceFAZolin INJ 1,000 MG VIAL ONE (17:12)
[2017-07-06] MEDS ORDERED: KETAMINE HCL 500 MG/5 ML VIAL ONE (17:25)
[2017-07-06] MEDS: SODIUM CHLOR 0.45% 1000 ML INJ 1,000 ML IV SCH (18:18)
--- NOTE | 2017-07-06 18:26 | PD.OP ---
cc: Micah Antonio MD Operative Report Date of Surgery: Jul 06, 2017 Preoperative Diagnosis: Hematoma right calf, compartment syndrome right leg Postoperative Diagnosis: Procedure: Incision and drainage of right calf hematoma, compartment release anterior and lateral compartments right calf, VAC dressing Anesthesia: Gen. Surgeon: Micah Antonio Caul Fat Puller(s): Chao Edwards PA-C The surgical procedure was assisted by my physician healthcare administrative assistant. My P.A. presence was necessary throughout this case for the manipulation and positioning of the surgical extremity. My P.A. was assisting me throughout the duration of this procedure. The skill set of a physician healthcare administrative assistant was medically necessary to complete this procedure. During the surgical case the utility tech was working at the back table and the physician healthcare administrative assistant was directly assisting me. Operation and Findings: Lucian was seen and evaluated today. He was found to have a compartment syndrome was right calf with a large hematoma present. Informed consent was obtained preoperatively and operative site was marked. He is brought to the operating room emergently. He was given IV sedation and general anesthesia. Right leg was prepped with alcohol followed by Hibiclens and draped usual sterile fashion. IV antibiotics were administered prior to incision. Timeout procedure was performed. Procedure began with a 6 incision over the lateral calf. A large hematoma was immediately identified. Approximately 300 cc of fresh blood was found. Hematoma was evacuated. No active bleeding was identified. At this point I proceeded with fasciotomy. The anterolateral compartment fascia was released with Bovie. The muscles appeared to be healthy and viable. There is no visible muscle necrosis. There was significant bruising of the muscles. The wound was now thoroughly irrigated. The posterior compartments were palpated and found to be soft and compressible. Dressing was now cut to fit the wound. VAC dressing was sealed appropriately. A compressive dressing was applied. Patient was transferred to recovery room in stable condition. Micah Antonio MD Jul 06, 2017 18:26
[2017-07-06] MEDS ORDERED: ACETAMINOPHEN/HYDROcodone 325 MG/10 MG TAB PO PRN (18:30)
--- NOTE | 2017-07-06 18:34 | MB ---
cc: BEV BANG DATE OF CONSULTATION 07/06/17 REASON FOR CONSULTATION Right leg compartment syndrome. CONSULTING PHYSICIAN Dr. Lex Torres. HISTORY OF PRESENT ILLNESS Lucian is a 62-year-old male who has multiple medical problems. He was initially admitted to the hospital on 06/28/17. He was complaining of shortness of breath and swelling of both legs. He is a relatively poor historian. He has been on anticoagulation while in the hospital. He complains of approximately two day history of increasing leg pain and swelling. He has also noted significant bruising. Over the past few hours, his pain has become unbearable. He denies any specific traumatic injury to his leg. He is currently awake and relatively oriented on the cardiac floor. His main complaint is his right leg. Pain is worse with any movement. PAST MEDICAL HISTORY ILLNESSES 1. Anxiety, 2. Depression, 3. History of OR, 4. Hypertension SURGERIES Tonsillectomy MEDICATIONS Please see EMR for complete list of patient medications. ALLERGIES CEFUROXIME FAMILY HISTORY Noncontributory. SOCIAL HISTORY The patient has a history of smoking. He denies or drug use. REVIEW OF SYSTEMS The patient denies headache, visual changes, neck pain, chest pain, shortness of breath, abdominal pain, nausea, vomiting or recent weight loss. Complains of right leg pain. Pain is worse with movement. PHYSICAL EXAMINATION GENERAL: The patient is a pleasant 62-year old male who is awake and alert. He is moderately overweight. He appears moderately disheveled. VITAL SIGNS: Temperature 98.1, pulse 111, respirations 18, blood pressure 123/75, O2 sat 99% on three liters nasal cannula HEENT: Head - The patient is normocephalic. Pupils are equal. NECK: Soft, nontender. Trachea is midline. ABDOMEN: Soft, nontender, nondistended. EXTREMITIES: Examination of bilateral upper extremities reveals no obvious pain or deformity with shoulder, elbow or wrist motion. He has good cap refill in his fingers. Radial pulses are palpable. Skin is intact in both hands. Examination of left leg reveals no pain with hip or knee motion. Skin is intact. Dorsalis pedis pulses palpable. Examination of right leg reveals no pain with hip or knee motion. He has severe swelling of the right calf. There appears to be a large hematoma present. The anterolateral compartments appear to be quite tense. The posterior compartment is moderately compressible. He has pain with ankle and toe motion. He has good cap refill in his toes. IMPRESSION 1. Right calf hematoma. 2. Probable compartment syndrome of right leg. PLAN Treatment options were discussed with the patient. At this point, I would recommend surgical evacuation of the hematoma with fasciotomy to the right calf. Risks of surgery include bleeding, infection, injury to arteries, nerves or blood vessels, wound complications, infection as well as medical complications including blood clot, stroke, heart attack and . All questions were answered. I will plan on surgery today. A mid-level provider in my office (nurse practitioner or physician psychiatric nursing assistant) may see this patient on follow-up visits and continue to implement the objectives of this plan including: Starting or adjusting medications, injections , cast application, orthotics, brace application, physical therapy, radiological studies (including x-ray, MRI, CT, ultrasound, bone scan), vascular studies, neurologic studies, specialist consultation, and proceeding with surgical management, as appropriate. MD JR Richardson/ /5:32 PM /6:12 PM MTDGrant
[2017-07-06] MEDS ORDERED: DO NOT ADM ANY ANTICOAGULANT DRUGS PRN (18:38)
[2017-07-06] MEDS ORDERED: PROPOFOL 1000 MG/100 ML INJ 100 ML ONE (18:48)
[2017-07-06] MEDS ORDERED: PHENYLEPHRINE HCL 10 MG/ML VIAL ONE ×2 (18:49→18:50)
[2017-07-06] MEDS ORDERED: TERBUTALINE INJ 1 MG/ML AMP SQ PRN (19:30)
[2017-07-06] MEDS ORDERED: PROPOFOL 1000 MG/100 ML IV PRN (19:30)
[2017-07-06 19:49] LABS: BLOOD GAS BASE EXCESS 7.9 mmol/L (-2-2); BLOOD GAS CARBOXYHEMOGLOBIN 0.6 % (0-4); BLOOD GAS HCO3 33 mmol/L (22-26); BLOOD GAS O2 HGB SATURATION 96 % (90-100); BLOOD GAS OXYGEN CONTENT 10.2 Vol % (12.0-20.0); BLOOD GAS PCO2 60 mmHg (38-42); BLOOD GAS PO2 272 mmHg (61-120); TEMP CORR TO 98.6
[2017-07-06 19:50] LABS: CRITICAL VALUE YES; FIO2 80 %; OXYGEN DEVICE VENTILATOR; VENT SETTINGS PC/AC
[2017-07-06 19:51] LABS: DRAW SITE ART LINE; STAT YES
[2017-07-06] MEDS: PHENYLEPHRINE 40 MG in D5W 500 ML IV PRN (19:55)
[2017-07-06 20:20] LABS: HEMATOCRIT 22.6 % (39.0-51.0); REVIEW FLAG FINAL
--- NOTE | 2017-07-06 20:55 | PD.CONS ---
HPI Service Critical Care Medicine Consult Requested By Primary Care Physician No Primary Care Physician History of Present Illness 62-year-old with multiple medical problems. He was initially admitted to the hospital on 06/28/17 with a chief complaint of shortness of breath and swelling of both legs. The CAT scan of the chest revealed large pleural effusion on the right however patient was refusing thoracentesis. He was also diagnosed with a new onset of atrial fibrillation and has been on anticoagulation while in the hospital. He was also complaining of approximately two day history of increasing leg pain and swelling and significant bruising. His pain became unbearable and he was taken emergently to operating room with the diagnosis of necrotizing fasciitis. He underwent fasciotomy and postoperatively he was admitted to ICU intubated. His chest x-ray repeat showed significant worsening of pleural effusion, patient was difficult to ventilate with high peak pressures on the ventilator, also his blood pressure showed hemodynamic compromise. The emergent thoracentesis was performed in the ICU with drainage of 2.2 L off fluid. Review of Systems ROS Unobtainable patient is sedated and intubated Past Family Social History Allergies: Coded Allergies: cefuroxime (Unverified Allergy, Unknown, 06/28/17) Past Medical History Anxiety, Depression, History of SD Hypertension Chronic alcohol use Past Surgical History Tonsillectomy Reported Medications Reported Meds & Active Scripts Active Active Ordered Medications Current Medications Medications (Trade) Dose Ordered Sig/Zeinab Route PRN Reason Start Time Stop Time Status Last Admin Dose Admin Acetaminophen (Tylenol) 650 mg Q4H PRN PO TEMP > 100.4 06/28/17 17:15 Ondansetron HCl (Zofran Inj) 4 mg Q6H PRN IVP NAUSEA OR VOMITING 06/28/17 17:15 Naloxone HCl (Narcan Inj) 0.4 mg UNSCH PRN IV PUSH SEE LABEL COMMENTS 06/28/17 17:15 Senna/Docusate Sodium (Mehnaz-Colace) 1 tab BID PO 06/28/17 21:00 07/06/17 07:56 Ipratropium [place] (Atrovent Neb) 0.5 mg Q4HR NEB NEB 06/28/17 20:00 07/05/17 19:33 Guaifenesin (Mucinex Er) 600 mg BID PO 06/28/17 21:00 07/06/17 07:56 Famotidine (Pepcid) 20 mg BID PO 06/29/17 21:00 07/06/17 07:56 Furosemide (Lasix) 20 mg BID@09,18 PO 06/30/17 18:00 07/06/17 07:56 Albumin Human (Albumin 25% Inj) 25 gm Q12H IV 07/02/17 14:00 07/07/17 03:14 Digoxin (Lanoxin) 0.25 mg DAILY PO 07/02/17 16:45 07/06/17 07:56 Lorazepam (Ativan Inj) 0.5 mg Q6H PRN IV PUSH MODERATE TO SEVERE ANXIETY 07/04/17 17:30 07/05/17 23:16 Carvedilol (Coreg) 25 mg Q12HR PO 07/05/17 09:00 07/06/17 07:56 Lisinopril (Prinivil) 10 mg DAILY PO 07/05/17 09:00 07/06/17 07:56 Morphine Sulfate (Morphine Inj) 2 mg Q3H PRN IV PUSH pain 1-10 07/06/17 20:00 Sodium Chloride 1,000 ml @ 80 mls/hr [id number] IV 07/06/17 18:18 07/06/17 18:18 Phenylephrine HCl 40 mg/Dextrose 500 ml @ 30 mls/hr TITRATE PRN IV Blood Pressure Management 07/06/17 19:30 07/06/17 19:55 Terbutaline Sulfate (Brethine Inj) 1 mg UNSCH PRN SQ FOR EXTRAVASATION PROTOCOL 07/06/17 19:30 Miscellaneous Information ALL NURSING DEPARTME... UNSCH PRN .XX SEE LABEL COMMENTS 07/06/17 18:38 07/07/17 18:37 Sodium Chloride (NS Flush) 2 ml UNSCH PRN .XX FLUSH AFTER USING IV ACCESS 07/06/17 21:00 Sodium Chloride (NS Flush) 2 ml BID .XX 07/06/17 21:00 Acetaminophen (Tylenol) 650 mg Q6H PRN PO PAIN 1-10 AND/OR FEVER >101F 07/06/17 21:00 Albuterol/ Ipratropium (Duoneb Neb) 1 ampule Q6HR NEB INH 07/06/17 22:00 07/07/17 03:13 Albuterol/ Ipratropium (Duoneb Neb) 1 ampule Q2HR NEB PRN INH WHEEZING 07/06/17 21:00 Miscellaneous Information 1 [id number] XX 07/06/17 21:00 Chlorhexidine Gluconate (Chlorhexidine 2% Cloth) 3 pack Taper DAILY@04 TOP 07/07/17 04:00 07/03/18 03:59 Chlorhexidine Gluconate (Chlorhexidine 2% Cloth) 3 pack UNSCH PRN TOP HYGIENIC CARE 07/06/17 21:00 Magnesium Hydroxide (Milk Of Magnesia Liq) 30 ml Q12H PRN PO MILD - MODERATE CONSTIPATION 07/06/17 21:00 Sennosides (Senokot) 17.2 mg Q12H PRN PO MODERATE - SEVERE CONSTIPATION 07/06/17 21:00 Bisacodyl (Dulcolax Supp) 10 mg DAILY PRN RECTAL SEVERE CONSITIPATION 07/06/17 21:00 Lactulose (Lactulose Liq) 30 ml DAILY PRN PO SEVERE CONSITIPATION 07/06/17 21:00 Chlorhexidine Gluconate (Peridex 0.12% Liq) 15 ml BID@08,20 MT 07/07/17 08:00 Propofol 100 ml @ 4.305 mls/ hr TITRATE PRN IV SEDATION 07/06/17 21:00 07/07/17 01:47 Fentanyl Citrate 250 ml @ 5 mls/hr TITRATE PRN IV Sedation 07/07/17 02:00 07/07/17 02:08 Sodium Chloride 1,000 ml @ 999 mls/hr Q1H1M IV 07/07/17 03:00 07/07/17 05:00 Family History Unobtainable due to patient is sedated and intubated Social History Patient is a smoker and drinks alcohol heavily Physical Exam Vital Signs Vital Signs Date Time Temp Pulse Resp B/P (MAP) Pulse Ox O2 Delivery O2 Flow Rate FiO2 07/06/17 20:30 108 109/61 (77) 07/06/17 20:30 100 18 97/62 (74) 100 Mechanical Ventilator 50 07/06/17 20:15 100 13 107/64 (78) 100 Mechanical Ventilator 50 07/06/17 20:00 106 14 102/62 (75) 100 Mechanical Ventilator 50 07/06/17 19:55 103 94/62 07/06/17 19:45 105 15 105/58 (74) 100 Mechanical Ventilator 80 9/26/17 19:30 103 15 103/60 (74) 100 Mechanical Ventilator 80 07/06/17 19:15 108 14 112/72 (85) 100 Mechanical Ventilator 80 07/06/17 19:00 80 07/06/17 19:00 108 118/69 (85) 07/06/17 19:00 97.7 132 15 119/84 (96) 100 Mechanical Ventilator 80 07/06/17 18:49 128 102/67 07/06/17 18:45 07/06/17 18:45 97.7 132 15 128/75 (92) 100 Mechanical Ventilator 80 07/06/17 18:45 99 80 07/06/17 15:00 98.1 111 18 123/75 (91) 99 07/06/17 15:00 Nasal Cannula 3.00 07/06/17 12:08 97.9 111 19 135/86 (102) 98 07/06/17 11:00 Nasal Cannula 3.00 07/06/17 10:00 106 07/06/17 09:00 105 07/06/17 08:00 116 07/06/17 07:30 97.8 113 19 153/102 (119) 98 07/06/17 07:24 Nasal Cannula 3.00 07/06/17 07:22 131 07/06/17 06:00 114 07/06/17 05:00 110 07/06/17 04:00 119 07/06/17 03:00 96 Nasal Cannula 3.00 07/06/17 03:00 97.8 116 20 130/94 (106) 07/06/17 03:00 114 07/06/17 02:00 106 07/06/17 01:00 114 07/06/17 00:00 120 07/05/17 23:00 98.1 123 20 108/69 (82) 96 07/05/17 23:00 96 Nasal Cannula 3.00 07/05/17 23:00 111 07/05/17 21:34 124/76 (92) 07/05/17 21:00 124 Physical Exam GENERAL: Disheveled man sedated and intubated SKIN: Warm and dry. HEAD: Normocephalic. EYES: No scleral icterus. No injection or drainage. NECK: Supple, trachea midline. No JVD or lymphadenopathy. Intubated. CARDIOVASCULAR: Regular rate and rhythm without murmurs, gallops, or rubs. RESPIRATORY: Breath sounds equal bilaterally. No accessory muscle use. GASTROINTESTINAL: Abdomen soft, non-tender, nondistended. MUSCULOSKELETAL: No cyanosis, status post fasciotomy on the right, dressing dry and clean. BACK: Nontender without obvious deformity. NEURO EXAM: GCS: M 5 V T E3 Mental Status: The patient is sedated and intubated Cranial Nerves: Pupils are round, reactive to light. Reflexes: Biceps, patellar, and Achilles are 2/4 bilaterally. No clonus. Laboratory Laboratory Tests Test 07/06/17 06:03 07/06/17 14:55 07/06/17 19:20 07/06/17 19:30 Prothrombin Time 11.2 Prothromb Time International Ratio 1.0 Blood Urea Nitrogen 11 Creatinine 0.86 Random Glucose 122 Calcium Level 9.0 Sodium Level 139 Potassium Level 4.2 Chloride Level 99 Carbon Dioxide Level 36.2 Anion Gap 4 Estimat Glomerular Filtration Rate 90 White Blood Count 13.8 Red Blood Count 3.36 Hemoglobin 8.5 7.0 Hematocrit 28.3 22.6 Mean Corpuscular Volume 84.2 Mean Corpuscular Hemoglobin 25.4 Mean Corpuscular Hemoglobin Concent 30.2 Red Cell Distribution Width 17.3 Platelet Count 200 Mean Platelet Volume 9.7 Blood Gas Puncture Site ART LINE Blood Gas Patient Temperature 98.6 Blood Gas HCO3 33 Blood Gas Base Excess 7.9 Blood Gas Oxygen Saturation 96 Arterial Blood pH 7.37 Arterial Blood Partial Pressure CO2 60 Arterial Blood Partial Pressure O2 272 Arterial Blood Oxygen Content 10.2 Arterial Blood Carboxyhemoglobin 0.6 Arterial Blood Methemoglobin 1.0 Blood Gas Hemoglobin 7.0 Oxygen Delivery Device VENTILATOR Blood Gas Ventilator Setting PC/AC Blood Gas Inspired Oxygen 80 Date/Time Source Procedure Growth Status 06/28/17 16:51 Blood Peripheral Aerobic Blood Culture - Final NO GROWTH IN 5 DAYS Complete 06/28/17 16:51 Blood Peripheral Anaerobic Blood Culture - Final NO GROWTH IN 5 DAYS Complete 06/28/17 20:03 Urine Clean Catch Legionella Antigen - Final PRESUMPTIVE NEGATIVE FOR LEGIONELLA P... Complete 06/28/17 20:03 Urine Clean Catch Streptococcus pneumoniae Antigen (M - Final PRESUMPTIVE NEGATIVE FOR STREPTOCOCCU... Complete Result Diagram: 07/06/17 1920 07/06/17 0603 Imaging Last 24 hours Impressions Chest X-Ray 07/07/17 0000 Signed Impressions: Service Date/Time: Friday, July 07, 2017 01:22 - CONCLUSION: 1. Right thoracentesis without pneumothorax. Felipe Medina MD Assessment and Plan Assessment and Plan Respiratory failure - Postoperatively - SBT a.m. - ABG and CXR Pleural effusion - Status post emergent thoracentesis due to difficulty ventilation and hemodynamic compromise - Analysis pending - Further per university relations recruiter Atrial Fibrillation - Cardiology consult appreciated - Rate controlled - Continue by mouth Cardizem - EF of 30-35% with global hypokinesia, mild concentric left ventricular hypertrophy, mild mitral valve regurgitation. - Anticoagulation on hold due to possible further surgical procedures Necrotizing fasciitis - Status post emergent fasciotomy and debridement - Meropenem, clindamycin, vancomycin - De-escalate per cultures and sensitivity DVT GI prophylaxis - Teds SCDs - DVT prophylaxis per surgeon - Pepcid Critical Care: The total critical care time was 35 minutes. Time to perform other separately billable procedures was not included in the critical care time. Feliciano Mcwilliams MD Jul 06, 2017 20:55
[2017-07-06] MEDS ORDERED: BISACODYL 10 MG SUPP RECTAL PRN (21:00)
[2017-07-06] MEDS ORDERED: LACTULOSE SYRUP 20 GM/30 ML CUP PO PRN (21:00)
[2017-07-06] MEDS ORDERED: SENNOSIDES 8.6 MG TAB PO PRN (21:00)
[2017-07-06] MEDS ORDERED: SODIUM CHLORIDE 0.9% FLUSH 10 ML FLUSH PRN (21:00)
[2017-07-06] MEDS ORDERED: DOCUSATE SODIUM 50 MG/SENNA 8.6 MG TAB PO SCH (21:00)
[2017-07-06] MEDS ORDERED: ACETAMINOPHEN 325 MG TAB PO PRN (21:00)
[2017-07-06] MEDS ORDERED: CHLORHEXIDINE GLUCONATE 2 % 1 PACK (2 CLOTHS) TOP PRN (21:00)
[2017-07-06] MEDS: SODIUM CHLORIDE 0.9% FLUSH 10 ML FLUSH SCH (21:00)
[2017-07-06] MEDS: SODIUM CHLOR 0.9% 1000 ML INJ 1,000 ML IV SCH (21:00)
[2017-07-06] MEDS ORDERED: MAGNESIUM HYDROXIDE SUSP 30 ML CUP PO PRN (21:00)
[2017-07-06] MEDS ORDERED: MISCELLANEOUS NURSING INFORMATION XX SCH (21:00)
[2017-07-06] MEDS: RESP: ALBUTEROL 2.5 MG/IPRATROPIUM 0.5 MG NEB (SCH) INH (21:19)
--- NOTE | 2017-07-06 21:36 | RADRPT ---
EXAM DATE/TIME: 07/06/2017 20:57 [facility] COMPARISON: CHEST SINGLE AP, June 28, 2017, 13:21. INDICATIONS : Short of breath, follow up pleural effusion. MEDICAL HISTORY : Hypertension. Myocardial infarction. SURGICAL HISTORY : Coronary artery stent. ENCOUNTER: Initial ACUITY: 1 day PAIN SCORE: Non-responsive. LOCATION: Bilateral chest FINDINGS: Worsening right pleural effusion, now large. There is also right-sided volume loss and consolidation. Left lung remains clear. Patient is now intubated. Endotracheal tube tip is approximately 6 cm above the addie. CONCLUSION: 1. Endotracheal tube tip is at the level of the thoracic inlet. 2. Increased consolidation, pleural fluid and volume loss on the right. Cole Nieves MD on July 06, 2017 at 21:34 Board Certified Radiologist. This report was verified electronically.
[2017-07-06] MEDS: PROPOFOL 1000 MG/100 ML INJ 100 ML IV PRN (23:00)
[2017-07-07] VITALS (25 sets, daily range): BP systolic 72–135; BP diastolic 56–77; PULSE 104–137; RESP 16–23; TEMP 98.7–100; O2SAT 94–100
[2017-07-07] MEDS: SODIUM CHLOR 0.9% 1000 ML INJ 1,000 ML IV SCH ×3 (00:11→05:31)
[2017-07-07] MEDS ORDERED: MIDAZOLAM HCL 5 MG/ML VIAL (1 ML) ONE (00:22)
[2017-07-07] MEDS ORDERED: MIDAZOLAM HCL 5 MG/ML VIAL (1 ML) IV PUSH ONE (00:33)
[2017-07-07] MEDS: PROPOFOL 1000 MG/100 ML INJ 100 ML IV PRN ×3 (01:47→10:27)
[2017-07-07] MEDS ORDERED: fentaNYL 2,500 MCG/NS 250 ML IV PRN (02:00)
[2017-07-07] MEDS ORDERED: ceFAZolin 2 GM PREMIX 50 ML IV SCH (02:00)
[2017-07-07 02:07] LABS: TOTAL PROTEIN,PLEURAL FLUID 2.1 GM/DL
--- NOTE | 2017-07-07 02:08 | RADRPT ---
EXAM DATE/TIME: 07/07/2017 01:22 [facility] COMPARISON: CHEST SINGLE AP, July 06, 2017, 20:57. INDICATIONS : Post thoracentesis. MEDICAL HISTORY : None. SURGICAL HISTORY : None. ENCOUNTER: Initial ACUITY: 1 day PAIN SCORE: 0/10 LOCATION: Bilateral chest FINDINGS: A single view of the chest demonstrates endotracheal tube in satisfactory position. Improvement in ri ght lung consolidation and effusion over the last day. No pneumothorax post thoracentesis. Minimal le ft basilar atelectasis. CONCLUSION: 1. Right thoracentesis without pneumothorax. Felipe Medina MD on July 07, 2017 at 2:06 Board Certified Radiologist. This report was verified electronically.
[2017-07-07] MEDS ORDERED: SODIUM CHLOR 0.9% 1000 ML INJ 2,000 ML IV ONE (02:15)
[2017-07-07 02:45] LABS: PLEURAL FLUID LYMPHS 73 %
[2017-07-07] MEDS: RESP: IPRATROPIUM 0.5 MG/2.5 ML NEB NEB SCH ×5 (03:13→20:08)
[2017-07-07] MEDS: RESP: ALBUTEROL 2.5 MG/IPRATROPIUM 0.5 MG NEB (SCH) INH ×4 (03:13→20:07)
[2017-07-07] MEDS: ALBUMIN HUMAN 25% 25 GM/100 ML BAGP IV SCH ×2 (03:14→12:35)
--- NOTE | 2017-07-07 03:57 | HHI.CCPN ---
Subjective Remarks/Hospital Course Centerline placement A time-out was completed verifying correct patient, procedure, site, positioning , and special equipment if applicable. The patient was placed in a dependent position appropriate for central line placement based on the vein to be cannulated. The patients left neck was prepped and draped in sterile fashion. 1 % Lidocaine was used to anesthetize the surrounding skin area. A triple lumen 9 Kinyarwanda Cordis catheter was introduced into the the internal jugular vein using the Seldinger technique and under ultrasound guidance. The catheter was threaded smoothly over the guide wire and appropriate blood return was obtained. Each lumen of the catheter was evacuated of air and flushed with sterile saline. The catheter was then sutured in place to the skin and a sterile dressing applied. Perfusion to the extremity distal to the point of catheter insertion was checked and found to be adequate. Estimated Blood Loss: 1ml The patient tolerated the procedure well and there were no complications. Objective Vital Signs Date Time Temp Pulse Resp B/P (MAP) Pulse Ox O2 Delivery O2 Flow Rate FiO2 07/07/17 02:00 133 07/07/17 01:53 99.3 18 97/58 98 07/07/17 00:00 50 07/06/17 22:30 Mechanical Ventilator 07/06/17 15:00 3.00 Intake and Output 07/07/17 07/07/17 07/08/17 08:00 16:00 00:00 Intake Total 558 ml Balance 558 ml Result Diagram: 07/06/17 1920 07/06/17 0603 Other Results Laboratory Tests Test 07/06/17 19:30 Blood Gas Puncture Site ART LINE Blood Gas Patient Temperature 98.6 Blood Gas HCO3 33 mmol/L (22-26) Blood Gas Base Excess 7.9 mmol/L (-2-2) Blood Gas Oxygen Saturation 96 % (90-100) Arterial Blood pH 7.37 (7.380-7.420) Arterial Blood Partial Pressure CO2 60 mmHg (38-42) Arterial Blood Partial Pressure O2 272 mmHg (61-120) Arterial Blood Oxygen Content 10.2 Vol % (12.0-20.0) Arterial Blood Carboxyhemoglobin 0.6 % (0-4) Arterial Blood Methemoglobin 1.0 % (0-2) Blood Gas Hemoglobin 7.0 G/DL (12.0-16.0) Oxygen Delivery Device VENTILATOR Blood Gas Ventilator Setting PC/AC Blood Gas Inspired Oxygen 80 % Feliciano Mcwilliams MD Jul 07, 2017 03:57
--- NOTE | 2017-07-07 03:58 | PD.PROCEDR ---
Procedure Note Procedure Thoracentesis A time-out was completed verifying correct patient, procedure, site, positioning , and special equipment if applicable. The patients right side was prepped and draped in a sterile manner after the appropriate infiltration level was confirmed by ultrasound. 1% lidocaine was used anesthetize the surrounding skin. A finder needle was then used to locate fluid and clear yellow fluid was obtained. A 10-blade scalpel used to make the incision. The thoracentesis catheter was then threaded without difficulty. The patient had 2200 of yellow/ brown fluid removed. A post-procedure chest x-ray was ordered and the fluid will be sent for several studies. Estimated Blood Loss: 1ml The patient tolerated the procedure well and there were no complications. Feliciano Mcwilliams MD Jul 07, 2017 3:58 am
[2017-07-07] MEDS ORDERED: VANCOMYCIN INJ 1,000 MG in SODIUM CHLOR 0.9% 250 ML INJ 250 ML IV ONE (04:00)
[2017-07-07] MEDS ORDERED: CLINDAMYCIN INJ 600 MG in SODIUM CHLORIDE 0.9% INJ 100 ML IV SCH (04:00)
[2017-07-07] MEDS ORDERED: Vancomycin Consult Pharmacy 1 EA OTHER SCH (04:00)
[2017-07-07] MEDS: CHLORHEXIDINE GLUCONATE 2 % 1 PACK (2 CLOTHS) TOP SCH (04:00)
--- NOTE | 2017-07-07 04:44 | RADRPT ---
EXAM DATE/TIME: 07/07/2017 03:44 [facility] COMPARISON: CHEST SINGLE AP, July 07, 2017, 1:22. INDICATIONS : Post central line placement. MEDICAL HISTORY : Hypertension. Myocardial infarction, PTSD. Depression. Substance abuse, CAD, AFIB SURGICAL HISTORY : Coronary artery stent. Tonsillectomy. Eye surgery, Right shouder surgery ENCOUNTER: Subsequent ACUITY: 1 day PAIN SCORE: Non-responsive. LOCATION: Left chest FINDINGS: A single view of the chest demonstrates endotracheal tube in good position. Basilar density most chiara acteristic of atelectasis. No significant effusion. Heart size enlarged. Central line in superior vena cava. No pneumothorax. CONCLUSION: 1. Central line tip in superior vena cava without pneumothorax. Endotracheal tube unchanged. Felipe Medina MD on July 07, 2017 at 4:41 Board Certified Radiologist. This report was verified electronically.
[2017-07-07 04:59] LABS: BLOOD GAS BASE EXCESS 6.2 mmol/L (-2-2); BLOOD GAS CARBOXYHEMOGLOBIN 1.8 % (0-4); BLOOD GAS HCO3 29 mmol/L (22-26); BLOOD GAS METHEMOGLOBIN 1.3 % (0-2); BLOOD GAS O2 HGB SATURATION 95 % (90-100); BLOOD GAS OXYGEN CONTENT 9.5 Vol % (12.0-20.0); BLOOD GAS PCO2 32 mmHg (38-42); BLOOD GAS PO2 87 mmHg (61-120); TEMP CORR TO 98.6
[2017-07-07 05:00] LABS: CRITICAL VALUE YES; DRAW SITE ART LINE; FIO2 50 %; OXYGEN DEVICE VENTILATOR; STAT NO; VENT SETTINGS PC/AC
[2017-07-07] MEDS ORDERED: VANCOMYCIN INJ 2,500 MG in SODIUM CHLORID 0.9% 500 ML INJ 500 ML IV ONE (05:00)
[2017-07-07 05:04] LABS: AUTOMATED NEUTROPHIL # 10.4 TH/MM3 (1.8-7.7); BASOPHIL # 0.1 TH/MM3 (0-0.2); BASOPHIL % 0.5 % (0.0-2.0); EOSINOPHIL # 0.1 TH/MM3 (0-0.4); EOSINOPHIL % 0.9 % (0.0-4.0); HEMATOCRIT 22.2 % (39.0-51.0); HEMO FLAGS DIFF FINAL; LYMPH % 6.9 % (9.0-44.0); LYMPHOCYTE # 0.9 TH/MM3 (1.0-4.8); MEAN CELL VOLUME 83.1 FL (80.0-100.0); MEAN CORPUSCULAR HEMOGLOBIN 26.1 PG (27.0-34.0); MEAN CORPUSCULAR HGB CONC 31.4 % (32.0-36.0); MONO % 9.3 % (0.0-8.0); NEUT % 82.4 % (16.0-70.0); PLATELET COUNT 165 TH/MM3 (150-450); RED BLOOD COUNT 2.67 MIL/MM3 (4.50-5.90); RED CELL DISTRIBUTION WIDTH 16.6 % (11.6-17.2); WHITE BLOOD COUNT 12.6 TH/MM3 (4.0-11.0)
[2017-07-07] MEDS: PHENYLEPHRINE 40 MG in D5W 500 ML IV PRN ×2 (05:14→14:40)
[2017-07-07 05:45] LABS: ALKALINE PHOSPHATASE 50 U/L (45-117); ALT (GPT) 11 U/L (12-78); ANION GAP 6 MEQ/L (5-15); AST (GOT) 8 U/L (15-37); BICARBONATE 29.8 MEQ/L (21.0-32.0); BLOOD UREA NITROGEN 12 MG/DL (7-18); CHLORIDE 106 MEQ/L (98-107); GLOMERULAR FILTRATION RATE 122 ML/MIN (>89); MAGNESIUM 1.9 MG/DL (1.5-2.5); POTASSIUM 3.3 MEQ/L (3.5-5.1); SODIUM (NA) 142 MEQ/L (136-145); TOTAL BILIRUBIN ADULT 0.9 MG/DL (0.2-1.0)
[2017-07-07] MEDS: SODIUM CHLOR 0.45% 1000 ML INJ 1,000 ML IV SCH ×2 (05:45→21:13)
[2017-07-07] MEDS ORDERED: MEROPENEM 1000 MG VIAL IV SCH (06:00)
[2017-07-07] MEDS ORDERED: MEROPENEM 1000 MG/NS 100 ML IV SCH ×2 (06:00)
[2017-07-07] MEDS ORDERED: METOPROLOL TARTRATE 5 MG/5 ML VIAL IV PUSH ONE ×2 (06:15)
--- NOTE | 2017-07-07 06:47 | HHI.CCPN ---
Subjective Remarks/Hospital Course 62-year-old with multiple medical problems. He was initially admitted to the hospital on 06/28/17 with a chief complaint of shortness of breath and swelling of both legs. The CAT scan of the chest revealed large pleural effusion on the right however patient was refusing thoracentesis. He was also diagnosed with a new onset of atrial fibrillation and has been on anticoagulation while in the hospital. He was also complaining of approximately two day history of increasing leg pain and swelling and significant bruising. His pain became unbearable and he was taken emergently to operating room. He underwent fasciotomy incision and drainage of right calf hematoma and postoperatively he was admitted to ICU intubated. His chest x-ray repeat showed significant worsening of pleural effusion, patient was difficult to ventilate with high peak pressures on the ventilator, also his blood pressure showed hemodynamic compromise. The emergent thoracentesis was performed in the ICU with drainage of 2.2 L off fluid. SUBJ 07/07/17: Patient remains intubated sedated. On lightening sedation he becomes very agitated FiO2. Chest x-ray post thoracentesis shows significant improvement in right effusion. Intermittently hypotensive not on pressors. s/p Incision and drainage of right calf hematoma, compartment release anterior and lateral compartments right calf, VAC dressing Objective Vital Signs Date Time Temp Pulse Resp B/P (MAP) Pulse Ox O2 Delivery O2 Flow Rate FiO2 07/07/17 06:00 109 07/07/17 05:14 95/51 07/07/17 05:11 100 50 07/07/17 04:20 99.8 18 07/06/17 22:30 Mechanical Ventilator 07/06/17 15:00 3.00 Intake and Output 07/07/17 07/07/17 07/08/17 08:00 16:00 00:00 Intake Total 8165 ml Output Total 4700 ml Balance 3465 ml Result Diagram: 07/07/17 0450 07/07/17 0450 Other Results Laboratory Tests Test 07/06/17 19:30 07/07/17 04:40 Blood Gas Puncture Site ART LINE ART LINE Blood Gas Patient Temperature 98.6 98.6 Blood Gas HCO3 33 mmol/L (22-26) 29 mmol/L (22-26) Blood Gas Base Excess 7.9 mmol/L (-2-2) 6.2 mmol/L (-2-2) Blood Gas Oxygen Saturation 96 % (90-100) 95 % (90-100) Arterial Blood pH 7.37 (7.380-7.420) 7.56 (7.380-7.420) Arterial Blood Partial Pressure CO2 60 mmHg (38-42) 32 mmHg (38-42) Arterial Blood Partial Pressure O2 272 mmHg (61-120) 87 mmHg (61-120) Arterial Blood Oxygen Content 10.2 Vol % (12.0-20.0) 9.5 Vol % (12.0-20.0) Arterial Blood Carboxyhemoglobin 0.6 % (0-4) 1.8 % (0-4) Arterial Blood Methemoglobin 1.0 % (0-2) 1.3 % (0-2) Blood Gas Hemoglobin 7.0 G/DL (12.0-16.0) 7.0 G/DL (12.0-16.0) Oxygen Delivery Device VENTILATOR VENTILATOR Blood Gas Ventilator Setting PC/AC PC/AC Blood Gas Inspired Oxygen 80 % 50 % Imaging Last 24 hours Impressions Chest X-Ray 07/07/17 0000 Signed Impressions: Service Date/Time: Friday, July 07, 2017 01:22 - CONCLUSION: 1. Right thoracentesis without pneumothorax. Felipe Medina MD Objective Remarks GENERAL: Disheveled man sedated and intubated SKIN: Warm and dry. HEAD: Normocephalic. EYES: No scleral icterus. No injection or drainage. NECK: Supple, trachea midline. No JVD or lymphadenopathy. Intubated. CARDIOVASCULAR: Regular rate and rhythm without murmurs, gallops, or rubs. RESPIRATORY: Breath sounds equal bilaterally. No accessory muscle use. GASTROINTESTINAL: Abdomen soft, non-tender, nondistended. MUSCULOSKELETAL: status post fasciotomy on the right calf, dressing dry and clean. BACK: Nontender without obvious deformity. NEURO EXAM: Mental Status: The patient is sedated and intubated Cranial Nerves: Pupils are round, reactive to light. No focal deficits. Moves all extremities equally on's sedation hold A/P Assessment and Plan Neuro: - Continue propofol and fentanyl sedation and vent synchrony - Initiate Precedex to facilitate vent weaning Resp: Acute hypoxemic respiratory failure R Pleural effusion - Postoperatively hypoxemic - Status post thoracentesis with 2.2 L removed overnight - Start spontaneous breathing trials - Followed by sequins stringer CVS: New onset Atrial Fibrillation - Cardiology following, afib rate controlled - Continue by mouth Cardizem - EF of 30-35% with global hypokinesia, mild concentric left ventricular hypertrophy, mild mitral valve regurgitation. - Anticoagulation on hold due to possible further surgical procedures - Hold po Lasix. Start IV 40 q12 ID/Heme/MSK: Right calf hematoma with compartment syndrome - Status post emergent fasciotomy and debridement - DC Meropenem, clindamycin, vancomycin. Place on Zosyn 4.5 GM IV q6h - Follow up panculture - Transfuse to keep hemoglobin more than 7 Endo: - Electrolyte replacement per protocol DVT GI prophylaxis - Teds SCDs - DVT prophylaxis per surgeon - Pepcid - Start chemical DVT prophylaxis in 24 hours Critical Care: The total critical care time was 35 minutes. Time to perform other separately billable procedures was not included in the critical care time. Marilyn Galvan MD Jul 07, 2017 06:47
[2017-07-07] MEDS: CHLORHEXIDINE 0.12% (ORAL KIT) 15 ML CUP MT SCH ×2 (08:00→20:00)
[2017-07-07] MEDS: SODIUM CHLORIDE 0.9% FLUSH 10 ML FLUSH SCH ×2 (08:39→21:00)
[2017-07-07] MEDS: CARVEDILOL 12.5 MG TAB PO SCH ×2 (08:42→20:51)
[2017-07-07] MEDS: POTASSIUM CHLORIDE 25 MEQ EFFERVESCENT TAB PO SCH ×2 (08:43→20:51)
[2017-07-07] MEDS: DOCUSATE SODIUM 50 MG/SENNA 8.6 MG TAB PO SCH ×2 (08:43→21:00)
[2017-07-07] MEDS: DIGOXIN 0.25 MG TAB PO SCH (08:43)
[2017-07-07] MEDS: FAMOTIDINE 20 MG TAB PO SCH ×2 (08:43→20:51)
[2017-07-07] MEDS: guaiFENesin E.R. 600 MG TAB PO SCH ×2 (08:43→21:00)
[2017-07-07] MEDS: LISINOPRIL 10 MG TAB PO SCH (08:43)
[2017-07-07] MEDS ORDERED: DEXMEDETOMIDINE INJ 200 MCG in SODIUM CHLORIDE 0.9% INJ 50 ML IV PRN (08:45)
[2017-07-07] MEDS: PIPERACIL-TAZO 4.5 GM PREMIX 100 ML IV SCH ×3 (08:55→20:07)
[2017-07-07] MEDS: FUROSEMIDE 40 MG/4 ML VIAL IV PUSH SCH ×2 (08:55→17:29)
[2017-07-07] MEDS ORDERED: ACETAMINOPHEN 1000 MG/100 ML VIAL IV ONE (11:30)
[2017-07-07] MEDS ORDERED: BUMETANIDE INJ 1 MG/4 ML VIAL IV PUSH ONE (12:15)
[2017-07-07 12:22] LABS: BLOOD GAS CARBOXYHEMOGLOBIN 1.8 % (0-4); BLOOD GAS HCO3 29 mmol/L (22-26); BLOOD GAS METHEMOGLOBIN 1.1 % (0-2); BLOOD GAS O2 HGB SATURATION 96 % (90-100); BLOOD GAS OXYGEN CONTENT 10.3 Vol % (12.0-20.0); BLOOD GAS PCO2 51 mmHg (38-42); BLOOD GAS PO2 125 mmHg (61-120); BLOOD GAS TOTAL HGB 7.4 G/DL (12.0-16.0); CRITICAL VALUE YES; OXYGEN DEVICE VENTILATOR; TEMP CORR TO 98.6
[2017-07-07 12:23] LABS: DRAW SITE ART LINE; FIO2 40 %; STAT NO; VENT SETTINGS CPAP PS5/PEEP5
--- NOTE | 2017-07-07 13:57 | PD.CARD.PN ---
Subjective Subjective Remarks Extubated, 2.2 l removed w thoracentesis, denies CP or SOB Objective Medications Administered Medications Medications (Trade) Dose Ordered Sig/Zeinab Route PRN Reason Start Time Stop Time Status Last Admin Dose Admin Senna/Docusate Sodium (Mehnaz-Colace) 1 tab BID PO 06/28/17 21:00 07/06/17 07:56 Ipratropium [place] (Atrovent Neb) 0.5 mg Q4HR NEB NEB 06/28/17 20:00 07/07/17 11:54 Guaifenesin (Mucinex Er) 600 mg BID PO 06/28/17 21:00 07/06/17 07:56 Famotidine (Pepcid) 20 mg BID PO 06/29/17 21:00 07/06/17 07:56 Albumin Human (Albumin 25% Inj) 25 gm Q12H IV 07/02/17 14:00 07/07/17 12:35 Digoxin (Lanoxin) 0.25 mg DAILY PO 07/02/17 16:45 07/06/17 07:56 Lorazepam (Ativan Inj) 0.5 mg Q6H PRN IV PUSH MODERATE TO SEVERE ANXIETY 07/04/17 17:30 07/05/17 23:16 Carvedilol (Coreg) 25 mg Q12HR PO 07/05/17 09:00 07/06/17 07:56 Lisinopril (Prinivil) 10 mg DAILY PO 07/05/17 09:00 07/06/17 07:56 Sodium Chloride 1,000 ml @ 80 mls/hr [id number] IV 07/06/17 18:18 07/07/17 05:45 Phenylephrine HCl 40 mg/Dextrose 500 ml @ 30 mls/hr TITRATE PRN IV Blood Pressure Management 07/06/17 19:30 07/07/17 05:14 Sodium Chloride (NS Flush) 2 ml BID .XX 07/06/17 21:00 07/07/17 08:39 Albuterol/ Ipratropium (Duoneb Neb) 1 ampule Q6HR NEB INH 07/06/17 22:00 07/07/17 03:13 Chlorhexidine Gluconate (Peridex 0.12% Liq) 15 ml BID@08,20 MT 07/07/17 08:00 07/07/17 08:00 Propofol 100 ml @ 4.305 mls/ hr TITRATE PRN IV SEDATION 07/06/17 21:00 07/07/17 10:27 Fentanyl Citrate 250 ml @ 5 mls/hr TITRATE PRN IV Sedation 07/07/17 02:00 07/07/17 02:08 Furosemide (Lasix Inj) 40 mg BID@09,18 IV PUSH 07/07/17 09:00 07/07/17 08:55 Piperacillin Sod/ Tazobactam Sod 100 ml @ 200 mls/hr Q6H IV 07/07/17 09:00 07/07/17 08:55 Dexmedetomidine HCl 200 mcg/ Sodium Chloride 52 ml @ 7.63 mls/hr TITRATE PRN IV SEDATION 07/07/17 08:45 07/07/17 09:14 Vital Signs / I&O Vital Signs Date Time Temp Pulse Resp B/P (MAP) Pulse Ox O2 Delivery O2 Flow Rate FiO2 07/07/17 12:40 98 Nasal Cannula 3 07/07/17 12:00 100.0 113 21 110/62 (78) 100 07/07/17 12:00 113 07/07/17 12:00 40 07/07/17 11:30 98 40 07/07/17 10:00 104 07/07/17 08:00 98.9 112 18 98/56 (70) 100 07/07/17 08:00 107 07/07/17 08:00 97 40 07/07/17 07:42 94 40 07/07/17 07:15 114 126/72 (90) Automatic Cuff 07/07/17 06:00 109 07/07/17 05:14 105 95/51 07/07/17 05:11 100 50 07/07/17 04:20 99.8 114 18 128/63 100 07/07/17 04:04 100 50 07/07/17 04:00 99.0 114 18 128/65 (86) 100 07/07/17 04:00 50 07/07/17 04:00 114 07/07/17 03:59 99.1 137 18 135/77 100 07/07/17 02:00 133 07/07/17 01:53 99.3 121 18 97/58 98 07/07/17 01:36 99.2 113 16 108/58 100 07/07/17 01:22 99.4 120 18 112/60 99 07/07/17 00:00 99.6 117 18 112/65 (81) 100 07/07/17 00:00 50 07/06/17 23:12 100 50 07/06/17 22:45 100 100 07/06/17 22:30 98.1 111 15 106/60 (75) 100 Mechanical Ventilator 50 07/06/17 21:56 109 18 101/61 (74) 100 Mechanical Ventilator 50 07/06/17 21:00 105 18 100/64 (76) 100 Mechanical Ventilator 50 07/06/17 20:30 108 109/61 (77) 07/06/17 20:30 100 18 97/62 (74) 100 Mechanical Ventilator 50 07/06/17 20:15 100 13 107/64 (78) 100 Mechanical Ventilator 50 07/06/17 20:05 100 50 07/06/17 20:00 106 14 102/62 (75) 100 Mechanical Ventilator 50 07/06/17 19:58 100 80 07/06/17 19:55 103 94/62 07/06/17 19:45 105 15 105/58 (74) 100 Mechanical Ventilator 80 07/06/17 19:30 103 15 103/60 (74) 100 Mechanical Ventilator 80 07/06/17 19:15 108 14 112/72 (85) 100 Mechanical Ventilator 80 07/06/17 19:00 80 07/06/17 19:00 108 118/69 (85) 07/06/17 19:00 97.7 132 15 119/84 (96) 100 Mechanical Ventilator 80 07/06/17 18:49 128 102/67 07/06/17 18:45 07/06/17 18:45 97.7 132 15 128/75 (92) 100 Mechanical Ventilator 80 07/06/17 18:45 99 80 07/06/17 15:00 98.1 111 18 123/75 (91) 99 07/06/17 15:00 Nasal Cannula 3.00 I/O 07/06/17 07/06/17 07/06/17 07/07/17 07/07/17 07/07/17 07:00 15:00 23:00 07:00 15:00 23:00 Intake Total 1060 ml 2050 ml 8265 ml 100 ml Output Total 2180 ml 530 ml 4700 ml Balance -1120 ml 1520 ml 3565 ml 100 ml Intake Oral 960 ml 0 ml IV Total 1000 ml 7865 ml 100 ml Packed Cells 400 ml Other 100 ml 1050 ml Output Urine Total 2180 ml 280 ml 1750 ml Chest Tube Drainage Total 2100 ml Drainage Total 850 ml Other 250 ml # Bowel Movements 1 Physical Exam GENERAL: In NAD. SKIN: Warm and dry. HEAD: Normocephalic. EYES: No scleral icterus. No injection or drainage. NECK: Supple, trachea midline. No JVD or lymphadenopathy. CARDIOVASCULAR: Irreg, without murmurs, gallops, or rubs. RESPIRATORY: Breath sounds equal bilaterally. Few rhonchi, distant BS GASTROINTESTINAL: Abdomen soft, non-tender, nondistended. MUSCULOSKELETAL: No cyanosis, bilat LE edema Laboratory Laboratory Tests Test 07/06/17 14:55 07/06/17 19:20 07/06/17 19:30 07/06/17 23:30 White Blood Count 13.8 TH/MM3 Red Blood Count 3.36 MIL/MM3 Hemoglobin 8.5 GM/DL 7.0 GM/DL Hematocrit 28.3 % 22.6 % Mean Corpuscular Volume 84.2 FL Mean Corpuscular Hemoglobin 25.4 PG Mean Corpuscular Hemoglobin Concent 30.2 % Red Cell Distribution Width 17.3 % Platelet Count 200 TH/MM3 Mean Platelet Volume 9.7 FL Blood Gas Puncture Site ART LINE Blood Gas Patient Temperature 98.6 Blood Gas HCO3 33 mmol/L Blood Gas Base Excess 7.9 mmol/L Blood Gas Oxygen Saturation 96 % Arterial Blood pH 7.37 Arterial Blood Partial Pressure CO2 60 mmHg Arterial Blood Partial Pressure O2 272 mmHg Arterial Blood Oxygen Content 10.2 Vol % Arterial Blood Carboxyhemoglobin 0.6 % Arterial Blood Methemoglobin 1.0 % Blood Gas Hemoglobin 7.0 G/DL Oxygen Delivery Device VENTILATOR Blood Gas Ventilator Setting PC/AC Blood Gas Inspired Oxygen 80 % Nasal Screen MRSA (PCR) MRSA NOT DETECTED Test 07/07/17 01:00 07/07/17 04:40 07/07/17 04:50 07/07/17 12:03 Pleural Fluid pH 8.0 Pleural Fluid WBC 882 /MM3 Pleural Fluid RBC 4806 /MM3 Pleural Fluid Neutrophils 22 % Pleural Fluid Lymphocytes 73 % Pleural Fluid Monocytes 3 % Pleural Fluid Mesothelial Cells 2 % Pleural Fluid Total Protein 2.1 GM/DL Pleural Fluid LDH 74 U/L Pleural Fluid Glucose 115 MG/DL Blood Gas Puncture Site ART LINE ART LINE Blood Gas Patient Temperature 98.6 98.6 Blood Gas HCO3 29 mmol/L 29 mmol/L Blood Gas Base Excess 6.2 mmol/L 4.0 mmol/L Blood Gas Oxygen Saturation 95 % 96 % Arterial Blood pH 7.56 7.37 Arterial Blood Partial Pressure CO2 32 mmHg 51 mmHg Arterial Blood Partial Pressure O2 87 mmHg 125 mmHg Arterial Blood Oxygen Content 9.5 Vol % 10.3 Vol % Arterial Blood Carboxyhemoglobin 1.8 % 1.8 % Arterial Blood Methemoglobin 1.3 % 1.1 % Blood Gas Hemoglobin 7.0 G/DL 7.4 G/DL Oxygen Delivery Device VENTILATOR VENTILATOR Blood Gas Ventilator Setting PC/AC CPAP PS5/PEEP5 Blood Gas Inspired Oxygen 50 % 40 % White Blood Count 12.6 TH/MM3 Red Blood Count 2.67 MIL/MM3 Hemoglobin 7.0 GM/DL Hematocrit 22.2 % Mean Corpuscular Volume 83.1 FL Mean Corpuscular Hemoglobin 26.1 PG Mean Corpuscular Hemoglobin Concent 31.4 % Red Cell Distribution Width 16.6 % Platelet Count 165 TH/MM3 Mean Platelet Volume 9.4 FL Neutrophils (%) (Auto) 82.4 % Lymphocytes (%) (Auto) 6.9 % Monocytes (%) (Auto) 9.3 % Eosinophils (%) (Auto) 0.9 % Basophils (%) (Auto) 0.5 % Neutrophils # (Auto) 10.4 TH/MM3 Lymphocytes # (Auto) 0.9 TH/MM3 Monocytes # (Auto) 1.2 TH/MM3 Eosinophils # (Auto) 0.1 TH/MM3 Basophils # (Auto) 0.1 TH/MM3 CBC Comment DIFF FINAL Differential Comment Blood Urea Nitrogen 12 MG/DL Creatinine 0.66 MG/DL Random Glucose 92 MG/DL Total Protein 4.6 GM/DL Albumin 2.8 GM/DL Calcium Level 7.9 MG/DL Phosphorus Level 1.9 MG/DL Magnesium Level 1.9 MG/DL Alkaline Phosphatase 50 U/L Aspartate Amino Transf (AST/SGOT) 8 U/L Alanine Aminotransferase (ALT/SGPT) 11 U/L Total Bilirubin 0.9 MG/DL Sodium Level 142 MEQ/L Potassium Level 3.3 MEQ/L Chloride Level 106 MEQ/L Carbon Dioxide Level 29.8 MEQ/L Anion Gap 6 MEQ/L Estimat Glomerular Filtration Rate 122 ML/MIN Imaging Last 24 hours Impressions Chest X-Ray 07/07/17 0000 Signed Impressions: Service Date/Time: Friday, July 07, 2017 03:44 - CONCLUSION: 1. Central line tip in superior vena cava without pneumothorax. Endotracheal tube unchanged. Felipe Medina MD Chest X-Ray 07/07/17 0000 Signed Impressions: Service Date/Time: Friday, July 07, 2017 01:22 - CONCLUSION: 1. Right thoracentesis without pneumothorax. Felipe eMdina MD Assessment and Plan Problem List: (1) Morbid obesity ICD Codes: E66.01 - Morbid (severe) obesity due to excess calories (2) Atrial fibrillation with RVR ICD Codes: I48.91 - Unspecified atrial fibrillation Status: Acute (3) Cardiomyopathy ICD Codes: I42.9 - Cardiomyopathy, unspecified (4) Pleural effusion ICD Codes: J90 - Pleural effusion, not elsewhere classified Status: Acute (5) ETOH abuse ICD Codes: F10.10 - Alcohol abuse, uncomplicated Assessment and Plan Extubated, thoracentesis performed, 2.2 l of fluid removed. Continue and titrate rate control of AF, continue digoxin. Wean pressors as tolerated. Echo with moderate LV dysfunction. Continue and titrate tx for CHF. Counseled to stop ETOH use. Increase activity. Poor candidate for full anticoagulation due to noncompliance. Social service evaluation for placement in progress (lives alone). Blair Krishnamurthy MD Jul 07, 2017 13:57
--- NOTE | 2017-07-07 14:44 | EKG ---
Date Performed: 07/07/2017 Time Performed: 05:19:12 PTAGE: 62 years EKG: Atrial fibrillation with rapid ventricular response Abnormal ECG PREVIOUS TRACING : 06/28/2017 13.20 Compared to prior tracing no significant change DOCTOR: Blair Krishnamurthy Interpretating Date/Time 07/07/2017 14:42:36
--- NOTE | 2017-07-07 17:16 | HHI.PR ---
Subjective Remarks 62 YO Obese WM mild SOB " My body is poisoned, nothing wrong with my Heart" Echo EF 30-35 % RVSP 41 Had Compartment release right calf Extubated this AM Had Thoracentesis Alert, awake On 80 mcg Neosyn Objective Vital Signs Vital Signs Date Time Temp Pulse Resp B/P (MAP) Pulse Ox O2 Delivery O2 Flow Rate FiO2 07/07/17 16:00 106 07/07/17 16:00 99.2 106 23 106/69 (81) 100 07/07/17 14:40 123 76/49 07/07/17 14:00 121 07/07/17 12:40 98 Nasal Cannula 3 07/07/17 12:00 100.0 113 21 110/62 (78) 100 07/07/17 12:00 113 07/07/17 12:00 40 07/07/17 11:30 98 40 07/07/17 10:00 104 07/07/17 08:00 98.9 112 18 98/56 (70) 100 07/07/17 08:00 107 07/07/17 08:00 97 40 07/07/17 07:42 94 40 07/07/17 07:15 114 126/72 (90) Automatic Cuff 07/07/17 06:00 109 07/07/17 05:14 105 95/51 07/07/17 05:11 100 50 07/07/17 04:20 99.8 114 18 128/63 100 07/07/17 04:04 100 50 07/07/17 04:00 99.0 114 18 128/65 (86) 100 07/07/17 04:00 50 07/07/17 04:00 114 07/07/17 03:59 99.1 137 18 135/77 100 07/07/17 02:00 133 07/07/17 01:53 99.3 121 18 97/58 98 07/07/17 01:36 99.2 113 16 108/58 100 07/07/17 01:22 99.4 120 18 112/60 99 07/07/17 00:00 99.6 117 18 112/65 (81) 100 07/07/17 00:00 50 07/06/17 23:12 100 50 07/06/17 22:45 100 100 07/06/17 22:30 98.1 111 15 106/60 (75) 100 Mechanical Ventilator 50 07/06/17 21:56 109 18 101/61 (74) 100 Mechanical Ventilator 50 07/06/17 21:00 105 18 100/64 (76) 100 Mechanical Ventilator 50 07/06/17 20:30 108 109/61 (77) 07/06/17 20:30 100 18 97/62 (74) 100 Mechanical Ventilator 50 07/06/17 20:15 100 13 107/64 (78) 100 Mechanical Ventilator 50 07/06/17 20:05 100 50 07/06/17 20:00 106 14 102/62 (75) 100 Mechanical Ventilator 50 07/06/17 19:58 100 80 07/06/17 19:55 103 94/62 07/06/17 19:45 105 15 105/58 (74) 100 Mechanical Ventilator 80 07/06/17 19:30 103 15 103/60 (74) 100 Mechanical Ventilator 80 07/06/17 19:15 108 14 112/72 (85) 100 Mechanical Ventilator 80 07/06/17 19:00 80 07/06/17 19:00 108 118/69 (85) 07/06/17 19:00 97.7 132 15 119/84 (96) 100 Mechanical Ventilator 80 07/06/17 18:49 128 102/67 07/06/17 18:45 07/06/17 18:45 97.7 132 15 128/75 (92) 100 Mechanical Ventilator 80 07/06/17 18:45 99 80 I/O 07/06/17 07/06/17 07/06/17 07/07/17 07/07/17 07/07/17 07:00 15:00 23:00 07:00 15:00 23:00 Intake Total 1060 ml 2050 ml 8265 ml 1282.5 ml Output Total 2180 ml 530 ml 4700 ml Balance -1120 ml 1520 ml 3565 ml 1282.5 ml Intake Oral 960 ml 0 ml IV Total 1000 ml 7865 ml 1282.5 ml Packed Cells 400 ml Other 100 ml 1050 ml Output Urine Total 2180 ml 280 ml 1750 ml Chest Tube Drainage Total 2100 ml Drainage Total 850 ml Other 250 ml # Bowel Movements 1 Result Diagram: 07/07/17 04507/07/17 045 Objective Remarks GENERAL: Obese Wm mild sob SKIN: Warm and dry. HEAD: Normocephalic. EYES: No scleral icterus. No injection or drainage. NECK: Supple, trachea midline. No JVD or lymphadenopathy. CARDIOVASCULAR: Regular rate and rhythm without murmurs, gallops, or rubs. RESPIRATORY: Breath sounds equal bilaterally. No accessory muscle use. Decreased BS at bases GASTROINTESTINAL: Abdomen soft, non-tender, nondistended. MUSCULOSKELETAL: No cyanosis, ++ edema. BACK: Nontender without obvious deformity. No CVA tenderness. A/P Assessment and Plan Bilat Pleural effusion CHF CMP AF PHTN ETOH use S/P Compartment release rright calf PLAN: Aerosol nebs prn SQ Heparin Supplement 02 Neosyn to support BP Lacho Palacios MD Jul 07, 2017 17:16
[2017-07-07] MEDS ORDERED: ICU - MAGNESIUM OXIDE 400 MG TAB PO PRN (18:30)
[2017-07-07] MEDS ORDERED: ICU - POTASSIUM PHOSPHATE 30 MMOL/NS 250 ML IV PRN ×2 (18:30)
[2017-07-07] MEDS ORDERED: ICU - D/C ICU ELECTROLYTE ORDERS PRN (18:30)
[2017-07-07] MEDS ORDERED: ICU - MAGNESIUM SULFATE 2 GM/NS 100 ML IV PRN ×2 (18:30)
[2017-07-07] MEDS ORDERED: POTASSIUM CHLORIDE 25 MEQ EFFERVESCENT TAB PO PRN (18:30)
[2017-07-07] MEDS ORDERED: ICU - POTASSIUM CHLORIDE/AQUEOUS SOLN 20 MEQ/100 ML IVPB IV PRN (18:30)
[2017-07-07] MEDS ORDERED: ICU - POTASSIUM PHOSPHATE MONOBASIC 500 MG TAB PO PRN (18:30)
[2017-07-07] MEDS ORDERED: ICU - MAGNESIUM SULFATE 4 GM/NS 100 ML IV PRN ×2 (18:30)
[2017-07-07] MEDS ORDERED: ICU - SODIUM PHOSPHATE 30 MMOL/NS 250 ML IV PRN ×2 (18:30)
[2017-07-07] MEDS ORDERED: ICU - CALL ORDERING PHYSICIAN PRN (18:30)
[2017-07-07] MEDS: ICU - POTASSIUM CHLORIDE/AQUEOUS SOLN 40 MEQ/100 ML IVPB IV PRN (21:08)
[2017-07-07] MEDS ORDERED: PHENYLEPHRINE HCL 10 MG/ML VIAL ONE (23:34)
[2017-07-08] VITALS (18 sets, daily range): BP systolic 92–151; BP diastolic 56–86; PULSE 50–134; RESP 18–25; TEMP 95.5–98.8; O2SAT 92–99
[2017-07-08] MEDS: ALBUMIN HUMAN 25% 25 GM/100 ML BAGP IV SCH ×2 (01:38→14:00)
[2017-07-08] MEDS: PHENYLEPHRINE 40 MG in D5W 500 ML IV PRN ×4 (01:54→20:25)
[2017-07-08] MEDS: DEXMEDETOMIDINE 200 MCG in NS 48 ML IV PRN ×2 (01:57→04:39)
[2017-07-08] MEDS: MORPHINE SULFATE 4 MG/ML INJ IV PUSH PRN ×2 (03:11→20:40)
[2017-07-08] MEDS: PIPERACIL-TAZO 4.5 GM PREMIX 100 ML IV SCH ×4 (03:11→20:26)
[2017-07-08] MEDS: RESP: IPRATROPIUM 0.5 MG/2.5 ML NEB NEB SCH ×3 (03:26→08:07)
[2017-07-08] MEDS: RESP: ALBUTEROL 2.5 MG/IPRATROPIUM 0.5 MG NEB (SCH) INH ×4 (03:34→19:49)
[2017-07-08 03:59] LABS: BICARBONATE 32.7 MEQ/L (21.0-32.0); POTASSIUM 3.8 MEQ/L (3.5-5.1)
[2017-07-08] MEDS: CHLORHEXIDINE GLUCONATE 2 % 1 PACK (2 CLOTHS) TOP SCH (05:31)
[2017-07-08] MEDS ORDERED: DEXMEDETOMIDINE INJ 1,000 MCG in SODIUM CHLOR 0.9% 250 ML INJ 240 ML IV PRN (07:00)
--- NOTE | 2017-07-08 07:35 | PD.ORT.PN ---
Subjective Subjective Remarks POD 2 s/p I&D right leg doing well. pain controlled. no complaints. Objective Vitals Vital Signs Date Time Temp Pulse Resp B/P (MAP) Pulse Ox O2 Delivery O2 Flow Rate FiO2 07/08/17 07:15 116/69 (85) 07/08/17 06:00 107 07/08/17 04:04 103 118/69 07/08/17 04:00 98.6 109 19 110/65 (80) 99 07/08/17 04:00 109 07/08/17 03:34 19 07/08/17 02:00 94 07/08/17 01:54 105 134/83 07/08/17 00:00 107 07/08/17 00:00 98.6 105 22 134/83 (100) 97 07/07/17 22:00 104 07/07/17 20:09 100 Nasal Cannula 2.00 07/07/17 20:00 118 07/07/17 20:00 98.7 118 22 121/64 (83) 97 07/07/17 19:15 118 121/64 (83) 07/07/17 18:00 119 07/07/17 16:00 106 07/07/17 16:00 99.2 106 23 106/69 (81) 100 07/07/17 14:40 123 76/49 07/07/17 14:00 121 07/07/17 12:40 98 Nasal Cannula 3 07/07/17 12:00 100.0 113 21 110/62 (78) 100 07/07/17 12:00 113 07/07/17 12:00 40 07/07/17 11:30 98 40 07/07/17 10:00 104 07/07/17 08:00 98.9 112 18 98/56 (70) 100 07/07/17 08:00 107 07/07/17 08:00 97 40 07/07/17 07:42 94 40 I/O 07/07/17 07/07/17 07/07/17 07/08/17 07/08/17 07/08/17 07:00 15:00 23:00 07:00 15:00 23:00 Intake Total 8665 ml 1282.5 ml 2409 ml 4256 ml 95 ml Output Total 4700 ml 4525 ml 2750 ml Balance 3965 ml 1282.5 ml -2116 ml 1506 ml 95 ml IV Total 7865 ml 1282.5 ml 2409 ml 4256 ml 95 ml Packed Cells 800 ml Output Urine Total 1750 ml 4375 ml 2700 ml Stool Total 0 ml Chest Tube Drainage Total 2100 ml Drainage Total 850 ml 150 ml 50 ml # Bowel Movements 1 1 Result Diagram: 07/07/17 0450 07/08/17 0325 Objective Remarks RLE: dressings clean and dry. intact. NVI. +vac with good seal Assessment & Plan Assessment and Plan 1) Right Leg Hematoma with compartment syndrome s/p Fasciotomy with I&D vac application - POD 2 -npo after MN -surgery tomorrow for wound closure -maintain vac at all times -sign consents Martir Moreno Jul 08, 2017 07:35
[2017-07-08] MEDS: CHLORHEXIDINE 0.12% (ORAL KIT) 15 ML CUP MT SCH (07:40)
[2017-07-08] MEDS: FUROSEMIDE 40 MG/4 ML VIAL IV PUSH SCH ×2 (07:53→17:01)
[2017-07-08] MEDS: SODIUM CHLOR 0.45% 1000 ML INJ 1,000 ML IV SCH (08:04)
[2017-07-08] MEDS: SODIUM CHLORIDE 0.9% FLUSH 10 ML FLUSH SCH ×2 (09:00→20:27)
[2017-07-08] MEDS: LISINOPRIL 10 MG TAB PO SCH (09:00)
[2017-07-08] MEDS: DOCUSATE SODIUM 50 MG/SENNA 8.6 MG TAB PO SCH ×2 (09:00→21:00)
[2017-07-08] MEDS: guaiFENesin E.R. 600 MG TAB PO SCH ×2 (09:00→20:26)
[2017-07-08] MEDS: POTASSIUM CHLORIDE 25 MEQ EFFERVESCENT TAB PO SCH ×2 (09:00→20:30)
--- NOTE | 2017-07-08 09:06 | HHI.CCPN ---
Subjective Remarks/Hospital Course 62-year-old with multiple medical problems. He was initially admitted to the hospital on 06/28/17 with a chief complaint of shortness of breath and swelling of both legs. The CAT scan of the chest revealed large pleural effusion on the right however patient was refusing thoracentesis. He was also diagnosed with a new onset of atrial fibrillation and has been on anticoagulation while in the hospital. He was also complaining of approximately two day history of increasing leg pain and swelling and significant bruising. His pain became unbearable and he was taken emergently to operating room. He underwent fasciotomy incision and drainage of right calf hematoma and postoperatively he was admitted to ICU intubated. His chest x-ray repeat showed significant worsening of pleural effusion, patient was difficult to ventilate with high peak pressures on the ventilator, also his blood pressure showed hemodynamic compromise. The emergent thoracentesis was performed in the ICU with drainage of 2.2 L off fluid. SUBJECTIVE: 07/07/17: Patient remains intubated sedated. On lightening sedation he becomes very agitated FiO2. Chest x-ray post thoracentesis shows significant improvement in right effusion. Intermittently hypotensive not on pressors. s/p Incision and drainage of right calf hematoma, compartment release anterior and lateral compartments right calf, VAC dressing. 07/08/17: No acute events overnight. The patient continues on Precedex infusion currently at 0.4mcgs/kg/hr, plan to wean Precedex off and provide Ativan when necessary for agitation. Hemoglobin notably 7.0 today type and screen ordered for plans for OR wound closure on 07/09/17. The patient continues with symptoms of paranoia, but cooperative this a.m. Plan for swallow study to initiate feed. Objective Vital Signs Date Time Temp Pulse Resp B/P (MAP) Pulse Ox O2 Delivery O2 Flow Rate FiO2 07/08/17 08:07 98 Nasal Cannula 2.00 07/08/17 08:00 111 07/08/17 08:00 97.0 18 92/56 (68) 07/07/17 12:00 40 Intake and Output 07/08/17 07/08/17 07/09/17 08:00 16:00 00:00 Intake Total 4446 ml Output Total 900 ml Balance 3546 ml Result Diagram: 07/07/17 0289 07/08/17 4762 Other Results Laboratory Tests Test 07/07/17 12:03 Blood Gas Puncture Site ART LINE Blood Gas Patient Temperature 98.6 Blood Gas HCO3 29 mmol/L (22-26) Blood Gas Base Excess 4.0 mmol/L (-2-2) Blood Gas Oxygen Saturation 96 % (90-100) Arterial Blood pH 7.37 (7.380-7.420) Arterial Blood Partial Pressure CO2 51 mmHg (38-42) Arterial Blood Partial Pressure O2 125 mmHg (61-120) Arterial Blood Oxygen Content 10.3 Vol % (12.0-20.0) Arterial Blood Carboxyhemoglobin 1.8 % (0-4) Arterial Blood Methemoglobin 1.1 % (0-2) Blood Gas Hemoglobin 7.4 G/DL (12.0-16.0) Oxygen Delivery Device VENTILATOR Blood Gas Ventilator Setting CPAP PS5/PEEP5 Blood Gas Inspired Oxygen 40 % Imaging Last 24 hours Impressions Chest X-Ray 07/07/17 0000 Signed Impressions: Service Date/Time: Friday, July 07, 2017 01:22 - CONCLUSION: 1. Right thoracentesis without pneumothorax. Felipe Medina MD Objective Remarks GENERAL:This ia an obese, awake and alert, confused male cooperative at this time SKIN: Warm and dry. HEAD: Normocephalic. EYES: No scleral icterus. No injection or drainage. NECK: Supple, trachea midline. No JVD or lymphadenopathy. Intubated. CARDIOVASCULAR: Regular rate and rhythm without murmurs, gallops, or rubs. RESPIRATORY: Breath sounds equal bilaterally. No accessory muscle use. GASTROINTESTINAL: Abdomen soft, non-tender, nondistended. MUSCULOSKELETAL: status post fasciotomy on the right calf, dressing dry and clean. Capillary refill brisk right lower extremity. BACK: Nontender without obvious deformity. NEURO EXAM: Mental Status: The patient is sedated and intubated Cranial Nerves: Pupils are round, reactive to light. No focal deficits. Movement of extremities 4 on command A/P Assessment and Plan Neuro: - Neurochecks per ICU protocol - Discontinue Precedex - Ativan 1 mg every 4 hours when necessary for agitation Resp: Acute hypoxemic respiratory failure R Pleural effusion - Postoperatively hypoxemic - 07/07 S/P thoracentesis with 2.2 L removed - Begin incentive spirometry - Followed by product design manager, Dr. Palacios CVS: New onset Atrial Fibrillation - Cardiology following, Dr. Krishnamurthy afib rate controlled - Carvedilol 25 mg BID - EF of 30-35% with global hypokinesia, mild concentric left ventricular hypertrophy, mild mitral valve regurgitation. - Anticoagulation on hold due to possible further surgical procedures - Hold po Lasix. Continue IV 40 q12 ID/Heme/MSK: Right calf hematoma with compartment syndrome - Status post emergent fasciotomy and debridement - DC Meropenem, clindamycin, vancomycin. Place on Zosyn 4.5 GM IV q6h - Follow up panculture - Transfuse to keep hemoglobin more than 7 -07/07 Pleural fluid negative GI: -Formal swallow study - Begin diet, nothing by mouth after 12 midnight Endo: - Electrolyte replacement per protocol MSK: - PT evaluation and treat - OT evaluation and treat -Continue evaluation of the right lower extremity DVT GI prophylaxis - Teds SCDs - DVT prophylaxis per surgeon - Pepcid - Start chemical DVT prophylaxis in 24 hours Critical Care: my billing statement This patient remains critically ill with one or more organ systems which are or may become a threat to life. I have spent in excess of 30 minutes discontinuously in the care and management of this patient. This time is exclusive of procedures, and includes, but is not limited to, evaluation of the patient, review of the medical record, discussions with family, consultants, nursing staff, or respiratory therapy, and documentation in the medical record. Physician Mirta Armstrong MD Jul 08, 2017 09:06
[2017-07-08] MEDS: DIGOXIN 0.25 MG TAB PO SCH (09:41)
[2017-07-08] MEDS: CARVEDILOL 12.5 MG TAB PO SCH ×2 (09:41→20:26)
[2017-07-08] MEDS: FAMOTIDINE 20 MG TAB PO SCH (09:41)
[2017-07-08 14:56] LABS: MEAN CELL VOLUME 85.3 FL (80.0-100.0); MEAN CORPUSCULAR HEMOGLOBIN 26.8 PG (27.0-34.0); MEAN CORPUSCULAR HGB CONC 31.4 % (32.0-36.0); PLATELET COUNT 170 TH/MM3 (150-450); RED CELL DISTRIBUTION WIDTH 17.1 % (11.6-17.2); WHITE BLOOD COUNT 13.8 TH/MM3 (4.0-11.0)
[2017-07-08 15:05] LABS: PROTHROMBIN TIME - PATIENT 11.5 SEC (9.8-11.6)
[2017-07-08 15:07] LABS: HEMATOCRIT 20.4 % (39.0-51.0)
[2017-07-08 15:12] LABS: REVIEW FLAG FINAL
--- NOTE | 2017-07-08 16:50 | PD.CONS ---
HPI History of Present Illness This is a 62 year old male with hx ETOH abuse who presented with SOB and lower leg swelling. He was found to have a pleural efusion and new onset AF. HE is s /p fasciotomy right calf, brought back from OR intubated. Pleural effusion worsened and he had emergent thoracentesis. He is now extubated. GI has been consulted for GIB. "I am crapping blood." Per RN pt had large dark maroon bloody BM this morning and there was report of same on 07/06. He is also having hematuria. He is c/o abd pain but nontender on exam. He says he has had bloody stools before after eating bad tacos. He has been drinking since age 10, when he "gets going" drinks 16 beers. Pt is poor historian, hx obtained from nurse, EMR. (Flor Sin) PFSH Past Medical History Anxiety disorder Depression CAD GA in 1995, Hypertension Past Surgical History Tonsillectomy fasciotomy & wound vac placement right calf (Flor Sin) Coded Allergies: cefuroxime (Unverified Allergy, Unknown, 06/28/17) Family History Asked and denied. Social History drinks up to 16 beers daily, since age 10 (Flor Sin) Review of Systems ROS noncontributory (Flor Sin) GI Exam Vitals I&O Vital Signs Date Time Temp Pulse Resp B/P (MAP) Pulse Ox O2 Delivery O2 Flow Rate FiO2 07/08/17 16:00 98.4 111 22 110/65 (80) 95 07/08/17 16:00 123 07/08/17 14:00 111 07/08/17 12:49 110 94/62 07/08/17 12:00 107 07/08/17 12:00 98.0 111 23 108/59 (75) 95 07/08/17 10:00 111 07/08/17 08:07 98 Nasal Cannula 2.00 07/08/17 08:00 111 07/08/17 08:00 97.0 112 18 92/56 (68) 94 07/08/17 07:15 116/69 (85) 07/08/17 06:00 107 07/08/17 04:04 103 118/69 07/08/17 04:00 98.6 109 19 110/65 (80) 99 07/08/17 04:00 109 07/08/17 03:34 19 07/08/17 02:00 94 07/08/17 01:54 105 134/83 07/08/17 00:00 107 07/08/17 00:00 98.6 105 22 134/83 (100) 97 07/07/17 22:00 104 07/07/17 20:09 100 Nasal Cannula 2.00 07/07/17 20:00 118 07/07/17 20:00 98.7 118 22 121/64 (83) 97 07/07/17 19:15 118 121/64 (83) 07/07/17 18:00 119 I/O 07/07/17 07/07/17 07/07/17 07/08/17 07/08/17 07/08/17 07:00 15:00 23:00 07:00 15:00 23:00 Intake Total 8665 ml 1282.5 ml 2409 ml 4256 ml 1315 ml Output Total 4700 ml 4525 ml 2750 ml Balance 3965 ml 1282.5 ml -2116 ml 1506 ml 1315 ml IV Total 7865 ml 1282.5 ml 2409 ml 4256 ml 1315 ml Packed Cells 800 ml Output Urine Total 1750 ml 4375 ml 2700 ml Stool Total 0 ml Chest Tube Drainage Total 2100 ml Drainage Total 850 ml 150 ml 50 ml # Bowel Movements 1 1 Imaging Last Impressions Chest X-Ray 07/07/17 0000 Signed Impressions: Service Date/Time: Friday, July 07, 2017 03:44 - CONCLUSION: 1. Central line tip in superior vena cava without pneumothorax. Endotracheal tube unchanged. Felipe Medina MD Lower Extremity Ultrasound 07/06/17 0000 Signed Impressions: Service Date/Time: Thursday, July 06, 2017 13:20 - CONCLUSION: 1. Probable large hematoma in the right calf this measures at least 36 x 5 x 7.6 cm. Please see above discussion. Srikanth Ware MD CT Angiography 06/28/17 1327 Signed Impressions: Service Date/Time: Wednesday, June 28, 2017 15:58 - CONCLUSION: 1. No pulmonary embolus identified. 2. Large right-sided pleural effusion with consolidation of the right lower lobe. Srikanth Ware MD Laboratory Test 9/28/17 03:25 07/08/17 14:30 Blood Urea Nitrogen 12 MG/DL Creatinine 0.85 MG/DL Random Glucose 101 MG/DL Calcium Level 8.3 MG/DL Phosphorus Level 3.7 MG/DL Sodium Level 145 MEQ/L Potassium Level 3.8 MEQ/L Chloride Level 108 MEQ/L Carbon Dioxide Level 32.7 MEQ/L Anion Gap 4 MEQ/L Estimat Glomerular Filtration Rate 91 ML/MIN White Blood Count 13.8 TH/MM3 Red Blood Count 2.40 MIL/MM3 Hemoglobin 6.4 GM/DL Hematocrit 20.4 % Mean Corpuscular Volume 85.3 FL Mean Corpuscular Hemoglobin 26.8 PG Mean Corpuscular Hemoglobin Concent 31.4 % Red Cell Distribution Width 17.1 % Platelet Count 170 TH/MM3 Mean Platelet Volume 10.1 FL Prothrombin Time 11.5 SEC Prothromb Time International Ratio 1.0 RATIO Date/Time Source Procedure Growth Status 06/28/17 16:51 Blood Peripheral Aerobic Blood Culture - Final NO GROWTH IN 5 DAYS Complete 06/28/17 16:51 Blood Peripheral Anaerobic Blood Culture - Final NO GROWTH IN 5 DAYS Complete 07/07/17 01:00 Fluid Pleural Fluid Fungal Smear - Final NO FUNGAL ELEMENTS SEEN. Resulted 07/07/17 01:00 Fluid Pleural Fluid Fungal Culture Pending Resulted 07/08/17 15:00 Stool Stool Stool Occult Blood (MARSHAL) Pending Received 06/28/17 20:03 Urine Clean Catch Legionella Antigen - Final PRESUMPTIVE NEGATIVE FOR LEGIONELLA P... Complete 06/28/17 20:03 Urine Clean Catch Streptococcus pneumoniae Antigen (M - Final PRESUMPTIVE NEGATIVE FOR STREPTOCOCCU... Complete Physical Examination HEENT: PERRL; normocephalic; atraumatic; no jaundice. CHEST: diminished CARDIAC: tachy, regular rhythm ABDOMEN: Soft, obese, nontender; no hepatosplenomegaly; bowel sounds are present in all four quadrants. EXTREMITIES: No clubbing, cyanosis, wound vac right leg SKIN: Normal; no rash; no jaundice. CAR STORER: alert, mildly confused (Flor Sin) Assessment and Plan Plan ASSESSMENT - anemia - hgb dropped to 6.5, waiting on blood transfusion. pt with hematuria and large bloody bm today, record bloody BM 07/06 as well. - new onset AF rate controlled, anticoag held for procedures, per CCM, CArdiology following - acute hypoxemic respiratory failure, right pleural effusion, per CCM, pulmonary following - right calf hematoma s/p fasciotomy - hematuria, painful urination - urology consult pending PLAN - EGD/colonoscopy tomorrow - obtain consents - clears - NPO after midnight - GoLytely - monitor HH - transfuse as needed - supportive care - further recs to follow - may use dignishield for prep when pt with liquid stool, d/w nurse THis pt seen by myself and Dr Ta and this note is written on his behalf (Flor Sin) Plan Patient was seen and examined, agree with above note, we'll proceed with upper endoscopy and colonoscopy for evaluation, patient will need to be off alcohol completely` (Kash Ta MD) Flor Sin Jul 08, 2017 16:50 Kash Ta MD Jul 08, 2017 19:14
[2017-07-08] MEDS ORDERED: PEG (High)/E-LYTE SOLN 4000 ML BTL PO ONE (17:00)
[2017-07-08] MEDS: PANTOPRAZOLE SODIUM 40 MG VIAL IV PUSH SCH (17:01)
[2017-07-08] MEDS ORDERED: MAGNESIUM CITRATE SOLN 300 ML BTL PO ONE ×2 (18:45→21:00)
--- NOTE | 2017-07-08 20:35 | HHI.PR ---
Subjective Remarks 62 YO Obese WM mild SOB " My body is poisoned, nothing wrong with my Heart" Echo EF 30-35 % RVSP 41 Had Compartment release right calf Had Thoracentesis Alert, awake Objective Vital Signs Vital Signs Date Time Temp Pulse Resp B/P (MAP) Pulse Ox O2 Delivery O2 Flow Rate FiO2 07/08/17 20:25 126 173/92 07/08/17 19:48 92 Nasal Cannula 2.00 07/08/17 18:07 95.5 134 25 135/79 96 07/08/17 18:00 125 07/08/17 17:44 98.4 116 23 110/74 94 07/08/17 16:00 98.4 111 22 110/65 (80) 95 07/08/17 16:00 123 07/08/17 14:00 111 07/08/17 12:49 110 94/62 07/08/17 12:00 107 07/08/17 12:00 98.0 111 23 108/59 (75) 95 07/08/17 10:00 111 07/08/17 08:07 98 Nasal Cannula 2.00 07/08/17 08:00 111 07/08/17 08:00 97.0 112 18 92/56 (68) 94 07/08/17 07:15 116/69 (85) 07/08/17 06:00 107 07/08/17 04:04 103 118/69 07/08/17 04:00 98.6 109 19 110/65 (80) 99 07/08/17 04:00 109 07/08/17 03:34 19 07/08/17 02:00 94 07/08/17 01:54 105 134/83 07/08/17 00:00 107 07/08/17 00:00 98.6 105 22 134/83 (100) 97 07/07/17 22:00 104 I/O 07/07/17 07/07/17 07/07/17 07/08/17 07/08/17 07/08/17 07:00 15:00 23:00 07:00 15:00 23:00 Intake Total 8665 ml 1282.5 ml 2409 ml 4256 ml 1315 ml Output Total 4700 ml 4525 ml 2750 ml 2850 ml Balance 3965 ml 1282.5 ml -2116 ml 1506 ml 1315 ml -2850 ml IV Total 7865 ml 1282.5 ml 2409 ml 4256 ml 1315 ml Packed Cells 800 ml Output Urine Total 1750 ml 4375 ml 2700 ml 2800 ml Stool Total 0 ml Chest Tube Drainage Total 2100 ml Drainage Total 850 ml 150 ml 50 ml 50 ml # Bowel Movements 1 1 2 Result Diagram: 07/08/17 1430 07/08/17 0325 Objective Remarks GENERAL: Obese Wm mild sob SKIN: Warm and dry. HEAD: Normocephalic. EYES: No scleral icterus. No injection or drainage. NECK: Supple, trachea midline. No JVD or lymphadenopathy. CARDIOVASCULAR: Regular rate and rhythm without murmurs, gallops, or rubs. RESPIRATORY: Breath sounds equal bilaterally. No accessory muscle use. Decreased BS at bases GASTROINTESTINAL: Abdomen soft, non-tender, nondistended. MUSCULOSKELETAL: No cyanosis, ++ edema. BACK: Nontender without obvious deformity. No CVA tenderness. A/P Assessment and Plan Bilat Pleural effusion CHF CMP AF PHTN ETOH use S/P Compartment release rright calf PLAN: Aerosol nebs prn SQ Heparin Supplement 02 Zeinab for Endoscopy. Lacho Palacios MD Jul 08, 2017 20:35
--- NOTE | 2017-07-08 21:22 | PD.CARD.PN ---
Subjective Subjective Remarks No CP or SOB, cooperative Objective Medications Administered Medications Medications (Trade) Dose Ordered Sig/Zeinab Route PRN Reason Start Time Stop Time Status Last Admin Dose Admin Senna/Docusate Sodium (Mehnaz-Colace) 1 tab BID PO 06/28/17 21:00 07/06/17 07:56 Guaifenesin (Mucinex Er) 600 mg BID PO 06/28/17 21:00 07/08/17 20:26 Albumin Human (Albumin 25% Inj) 25 gm Q12H IV 07/02/17 14:00 07/08/17 01:38 Digoxin (Lanoxin) 0.25 mg DAILY PO 07/02/17 16:45 07/08/17 09:41 Carvedilol (Coreg) 25 mg Q12HR PO 07/05/17 09:00 07/08/17 20:26 Lisinopril (Prinivil) 10 mg DAILY PO 07/05/17 09:00 07/06/17 07:56 Morphine Sulfate (Morphine Inj) 2 mg Q3H PRN IV PUSH pain 1-10 07/06/17 20:00 07/08/17 20:40 Sodium Chloride 1,000 ml @ 80 mls/hr [id number] IV 07/06/17 18:18 07/08/17 08:04 Sodium Chloride (NS Flush) 2 ml BID .XX 07/06/17 21:00 07/08/17 20:27 Albuterol/ Ipratropium (Duoneb Neb) 1 ampule Q6HR NEB INH 07/06/17 22:00 07/08/17 03:34 Chlorhexidine Gluconate (Chlorhexidine 2% Cloth) 3 pack Taper DAILY@04 TOP 07/07/17 04:00 07/03/18 03:59 07/08/17 05:31 Furosemide (Lasix Inj) 40 mg BID@18 IV PUSH 07/07/17 09:00 07/08/17 17:01 Potassium Bicarb/ Potassium Chloride (K-Lyte Cl Eff) 25 meq Q12HR PO 07/07/17 09:00 07/07/17 20:51 Piperacillin Sod/ Tazobactam Sod 100 ml @ 200 mls/hr Q6H IV 07/07/17 09:00 07/08/17 20:26 Potassium Chloride 100 ml @ 25 mls/hr UNSCH PRN IV ELECTROLYTE REPLACEMENT 07/07/17 18:30 07/07/17 21:08 Potassium Phosphate 30 mmol/ Sodium Chloride 260 ml @ 43.333 mls/ hr UNSCH PRN IV ELECTROLYTE REPLACEMENT 07/07/17 18:30 07/07/17 18:55 Phenylephrine HCl 40 mg/Dextrose 500 ml @ 30 mls/hr TITRATE PRN IV Blood Pressure Management 07/07/17 23:30 07/08/17 20:25 Dexmedetomidine HCl 1000 mcg/ Sodium Chloride 250 ml @ 7.34 mls/hr TITRATE PRN IV Desired RASS 07/08/17 07:00 Future Hold 07/08/17 07:32 Pantoprazole Sodium (Protonix Inj) 40 mg Q12H IV PUSH 07/08/17 16:00 07/08/17 17:01 Vital Signs / I&O Vital Signs Date Time Temp Pulse Resp B/P (MAP) Pulse Ox O2 Delivery O2 Flow Rate FiO2 07/08/17 20:25 126 173/92 07/08/17 19:48 92 Nasal Cannula 2.00 07/08/17 18:07 95.5 134 25 135/79 96 07/08/17 18:00 125 07/08/17 17:44 98.4 116 23 110/74 94 07/08/17 16:00 98.4 111 22 110/65 (80) 95 07/08/17 16:00 123 07/08/17 14:00 111 07/08/17 12:49 110 94/62 07/08/17 12:00 107 07/08/17 12:00 98.0 111 23 108/59 (75) 95 07/08/17 10:00 111 07/08/17 08:07 98 Nasal Cannula 2.00 07/08/17 08:00 111 07/08/17 08:00 97.0 112 18 92/56 (68) 94 07/08/17 07:15 116/69 (85) 07/08/17 06:00 107 07/08/17 04:04 103 118/69 07/08/17 04:00 98.6 109 19 110/65 (80) 99 07/08/17 04:00 109 07/08/17 03:34 19 07/08/17 02:00 94 07/08/17 01:54 105 134/83 07/08/17 00:00 107 07/08/17 00:00 98.6 105 22 134/83 (100) 97 07/07/17 22:00 104 I/O 07/07/17 07/07/17 07/07/17 07/08/17 07/08/17 07/08/17 07:00 15:00 23:00 07:00 15:00 23:00 Intake Total 8665 ml 1282.5 ml 2409 ml 4256 ml 1315 ml Output Total 4700 ml 4525 ml 2750 ml 2850 ml Balance 3965 ml 1282.5 ml -2116 ml 1506 ml 1315 ml -2850 ml IV Total 7865 ml 1282.5 ml 2409 ml 4256 ml 1315 ml Packed Cells 800 ml Output Urine Total 1750 ml 4375 ml 2700 ml 2800 ml Stool Total 0 ml Chest Tube Drainage Total 2100 ml Drainage Total 850 ml 150 ml 50 ml 50 ml # Bowel Movements 1 1 2 Physical Exam GENERAL: In NAD. SKIN: Warm and dry. HEAD: Normocephalic. EYES: No scleral icterus. No injection or drainage. NECK: Supple, trachea midline. No JVD or lymphadenopathy. CARDIOVASCULAR: Irreg, without murmurs, gallops, or rubs. RESPIRATORY: Breath sounds equal bilaterally. Few rhonchi, distant BS GASTROINTESTINAL: Abdomen soft, non-tender, nondistended. MUSCULOSKELETAL: No cyanosis, RLE dressed Laboratory Laboratory Tests Test 07/08/17 03:25 07/08/17 14:30 Blood Urea Nitrogen 12 MG/DL Creatinine 0.85 MG/DL Random Glucose 101 MG/DL Calcium Level 8.3 MG/DL Phosphorus Level 3.7 MG/DL Sodium Level 145 MEQ/L Potassium Level 3.8 MEQ/L Chloride Level 108 MEQ/L Carbon Dioxide Level 32.7 MEQ/L Anion Gap 4 MEQ/L Estimat Glomerular Filtration Rate 91 ML/MIN White Blood Count 13.8 TH/MM3 Red Blood Count 2.40 MIL/MM3 Hemoglobin 6.4 GM/DL Hematocrit 20.4 % Mean Corpuscular Volume 85.3 FL Mean Corpuscular Hemoglobin 26.8 PG Mean Corpuscular Hemoglobin Concent 31.4 % Red Cell Distribution Width 17.1 % Platelet Count 170 TH/MM3 Mean Platelet Volume 10.1 FL Prothrombin Time 11.5 SEC Prothromb Time International Ratio 1.0 RATIO Fibrinogen 449 mg/dL D-Dimer Quantitative (PE/DVT) 0.87 MG/L FEU Assessment and Plan Problem List: (1) Morbid obesity ICD Codes: E66.01 - Morbid (severe) obesity due to excess calories (2) Atrial fibrillation with RVR ICD Codes: I48.91 - Unspecified atrial fibrillation Status: Acute (3) Cardiomyopathy ICD Codes: I42.9 - Cardiomyopathy, unspecified (4) Pleural effusion ICD Codes: J90 - Pleural effusion, not elsewhere classified Status: Acute (5) ETOH abuse ICD Codes: F10.10 - Alcohol abuse, uncomplicated Assessment and Plan Tolerated surgery well; wound closure planned for tomorrow. Rate better controlled, continue and titrate rate control of AF, continue digoxin. Echo with moderate LV dysfunction. Continue and titrate tx for CHF. Increase activity. Poor candidate for full anticoagulation due to noncompliance. Social service evaluation for placement after discharge in progress (lives alone). Blair Krishnamurthy MD Jul 08, 2017 21:22
[2017-07-09] VITALS (13 sets, daily range): BP systolic 90–147; BP diastolic 56–93; PULSE 92–109; RESP 14–20; TEMP 97.5–98.8; O2SAT 50–100
[2017-07-09] MEDS: ALBUMIN HUMAN 25% 25 GM/100 ML BAGP IV SCH ×2 (01:32→14:00)
[2017-07-09] MEDS: SODIUM CHLOR 0.45% 1000 ML INJ 1,000 ML IV SCH ×3 (01:33→23:31)
[2017-07-09] MEDS: PIPERACIL-TAZO 4.5 GM PREMIX 100 ML IV SCH ×4 (03:03→21:20)
[2017-07-09] MEDS: RESP: ALBUTEROL 2.5 MG/IPRATROPIUM 0.5 MG NEB (SCH) INH ×4 (03:36→20:25)
[2017-07-09] MEDS: PANTOPRAZOLE SODIUM 40 MG VIAL IV PUSH SCH ×2 (03:42→16:00)
[2017-07-09] MEDS: PHENYLEPHRINE 40 MG in D5W 500 ML IV PRN ×2 (04:50→17:00)
[2017-07-09 05:27] LABS: HEMATOCRIT 25.6 % (39.0-51.0); MEAN CELL VOLUME 85.8 FL (80.0-100.0); MEAN CORPUSCULAR HEMOGLOBIN 27.4 PG (27.0-34.0); MEAN CORPUSCULAR HGB CONC 31.9 % (32.0-36.0); PLATELET COUNT 172 TH/MM3 (150-450); RED BLOOD COUNT 2.98 MIL/MM3 (4.50-5.90); RED CELL DISTRIBUTION WIDTH 16.4 % (11.6-17.2); REVIEW FLAG FINAL; WHITE BLOOD COUNT 14.8 TH/MM3 (4.0-11.0)
[2017-07-09 05:44] LABS: BICARBONATE 35.8 MEQ/L (21.0-32.0); MAGNESIUM 2.3 MG/DL (1.5-2.5); POTASSIUM 3.4 MEQ/L (3.5-5.1)
[2017-07-09] MEDS: RESP: ALBUTEROL 2.5 MG/IPRATROPIUM 0.5 MG NEB (PRN) INH (05:53)
[2017-07-09] MEDS ORDERED: MAGNESIUM CITRATE SOLN 300 ML BTL PO ONE (09:00)
[2017-07-09] MEDS: SODIUM CHLORIDE 0.9% FLUSH 10 ML FLUSH SCH ×2 (09:35→21:20)
[2017-07-09] MEDS: CHLORHEXIDINE GLUCONATE 2 % 1 PACK (2 CLOTHS) TOP SCH (09:35)
--- NOTE | 2017-07-09 09:37 | PD.CONS ---
HPI Service Urology Consult Requested By Dr. Viveros Reason for Consult Gross hematuria Primary Care Physician No Primary Care Physician Diagnosis: History of Present Illness 62-year-old gentleman with psychiatric disorder and multiple medical problems who was recently admitted for workup of shortness of breath and swelling to bilateral lower extremities. During present hospitalization the patient has been managed with an indwelling Art catheter and urology is now consult at for new onset gross hematuria. Upon original presentation to the emergency room urinalysis was obtained and was negative. At the time of consultation the patient indwelling Art catheter was draining clear yellow urine. Review of Systems ROS Limitations: Poor Historian Except as stated in HPI: all other systems reviewed are Neg Past Family Social History Past Medical History Anxiety/depression History OR Hypertension Past Surgical History Status post tonsillectomy Reported Medications Refer to EMR Allergies: Coded Allergies: cefuroxime (Unverified Allergy, Unknown, 06/28/17) Active Ordered Medications Refer to EMR Family History Reviewed and noncontributory Social History Positive history for tobacco use. Physical Exam Vital Signs Date Time Temp Pulse Resp B/P (MAP) Pulse Ox O2 Delivery O2 Flow Rate FiO2 07/09/17 06:00 103 07/09/17 04:50 108 123/58 07/09/17 04:00 98.2 103 20 137/77 (97) 96 07/09/17 04:00 103 07/09/17 02:00 100 07/09/17 00:00 102 07/09/17 00:00 98.8 102 20 123/93 (103) 97 07/08/17 22:00 50 07/08/17 21:25 98.8 119 21 115/64 96 07/08/17 20:25 126 173/92 07/08/17 20:00 62 07/08/17 20:00 98.8 127 24 151/86 (107) 07/08/17 19:48 92 Nasal Cannula 2.00 07/08/17 18:07 95.5 134 25 135/79 96 07/08/17 18:00 125 07/08/17 17:44 98.4 116 23 110/74 94 07/08/17 16:00 98.4 111 22 110/65 (80) 95 07/08/17 16:00 123 07/08/17 14:00 111 07/08/17 12:49 110 94/62 07/08/17 12:00 107 9/28/17 12:00 98.0 111 23 108/59 (75) 95 07/08/17 10:00 111 Physical Exam GENERAL: Appears stated age SKIN: No rashes, ecchymoses or lesions. Cool and dry. HEAD: Atraumatic. Normocephalic. No temporal or scalp tenderness. EYES: Pupils equal round and reactive. Extraocular motions intact. No scleral icterus. No injection or drainage. ENT: Nose without bleeding, purulent drainage or septal hematoma. Throat without erythema, tonsillar hypertrophy or exudate. Uvula midline. Airway patent. NECK: Trachea midline. No JVD or lymphadenopathy. Supple, nontender, no meningeal signs. GASTROINTESTINAL: Abdomen soft, non-tender, nondistended. GENITOURINARY: Art catheter in place draining clear yellow urine MUSCULOSKELETAL: Extremities without clubbing, cyanosis, or edema. No joint tenderness, effusion, or edema noted. No calf tenderness. Negative Homans sign bilaterally. NEUROLOGICAL: Conversant but not making any sense. Lab results reviewed: Yes Laboratory Tests Test 07/08/17 14:30 07/09/17 05:04 White Blood Count 13.8 14.8 Red Blood Count 2.40 2.98 Hemoglobin 6.4 8.2 Hematocrit 20.4 25.6 Mean Corpuscular Volume 85.3 85.8 Mean Corpuscular Hemoglobin 26.8 27.4 Mean Corpuscular Hemoglobin Concent 31.4 31.9 Red Cell Distribution Width 17.1 16.4 Platelet Count 170 172 Mean Platelet Volume 10.1 9.5 Prothrombin Time 11.5 Prothromb Time International Ratio 1.0 Fibrinogen 449 D-Dimer Quantitative (PE/DVT) 0.87 Blood Urea Nitrogen 11 Creatinine 0.97 Random Glucose 134 Calcium Level 8.3 Phosphorus Level 3.2 Magnesium Level 2.3 Sodium Level 143 Potassium Level 3.4 Chloride Level 104 Carbon Dioxide Level 35.8 Anion Gap 3 Estimat Glomerular Filtration Rate 78 Date/Time Source Procedure Growth Status 06/28/17 16:51 Blood Peripheral Aerobic Blood Culture - Final NO GROWTH IN 5 DAYS Complete 06/28/17 16:51 Blood Peripheral Anaerobic Blood Culture - Final NO GROWTH IN 5 DAYS Complete 07/07/17 01:00 Fluid Pleural Fluid Fungal Smear - Final NO FUNGAL ELEMENTS SEEN. Resulted 07/07/17 01:00 Fluid Pleural Fluid Fungal Culture Pending Resulted 07/08/17 15:00 Stool Stool Stool Occult Blood (MARSHAL) - Final HEMOCCULT NEGATIVE Complete 06/28/17 20:03 Urine Clean Catch Legionella Antigen - Final PRESUMPTIVE NEGATIVE FOR LEGIONELLA P... Complete 06/28/17 20:03 Urine Clean Catch Streptococcus pneumoniae Antigen (M - Final PRESUMPTIVE NEGATIVE FOR STREPTOCOCCU... Complete Result Diagram: 07/09/17 0504 07/09/17 0504 Imaging Last Impressions Chest X-Ray 07/07/17 0000 Signed Impressions: Service Date/Time: Friday, July 07, 2017 03:44 - CONCLUSION: 1. Central line tip in superior vena cava without pneumothorax. Endotracheal tube unchanged. Felipe Medina MD Lower Extremity Ultrasound 07/06/17 0000 Signed Impressions: Service Date/Time: Thursday, July 06, 2017 13:20 - CONCLUSION: 1. Probable large hematoma in the right calf this measures at least 36 x 5 x 7.6 cm. Please see above discussion. Srikanth Ware MD CT Angiography 06/28/17 1327 Signed Impressions: Service Date/Time: Wednesday, June 28, 2017 15:58 - CONCLUSION: 1. No pulmonary embolus identified. 2. Large right-sided pleural effusion with consolidation of the right lower lobe. Srikanth Ware MD Assessment and Plan Assessment and Plan Urologic impression: #1 recent development of gross painless hematuria now resolved #2 hematuria likely related to irritation from indwelling Rat catheter however other causes will need to be ruled out Recommendations: #1 no acute intervention indicated at the present time #2 outpatient workup of hematuria once overall medical condition stabilized #3 will be available as needed during present hospitalization David Samuel MD Jul 09, 2017 09:37
[2017-07-09] MEDS: DIGOXIN 0.25 MG TAB PO SCH (09:39)
[2017-07-09] MEDS: DOCUSATE SODIUM 50 MG/SENNA 8.6 MG TAB PO SCH ×2 (09:39→22:12)
[2017-07-09] MEDS: CARVEDILOL 12.5 MG TAB PO SCH ×2 (09:39→21:00)
[2017-07-09] MEDS: guaiFENesin E.R. 600 MG TAB PO SCH ×2 (09:39→21:00)
[2017-07-09] MEDS: LISINOPRIL 10 MG TAB PO SCH (09:39)
[2017-07-09] MEDS: POTASSIUM CHLORIDE 25 MEQ EFFERVESCENT TAB PO SCH ×2 (09:40→21:20)
[2017-07-09] MEDS: FUROSEMIDE 40 MG/4 ML VIAL IV PUSH SCH ×2 (09:40→18:21)
[2017-07-09] MEDS: ICU - POTASSIUM CHLORIDE/AQUEOUS SOLN 40 MEQ/100 ML IVPB IV PRN ×2 (09:42→22:20)
--- NOTE | 2017-07-09 09:56 | HHI.CCPN ---
Subjective Remarks/Hospital Course 62-year-old with multiple medical problems. He was initially admitted to the hospital on 06/28/17 with a chief complaint of shortness of breath and swelling of both legs. The CAT scan of the chest revealed large pleural effusion on the right however patient was refusing thoracentesis. He was also diagnosed with a new onset of atrial fibrillation and has been on anticoagulation while in the hospital. He was also complaining of approximately two day history of increasing leg pain and swelling and significant bruising. His pain became unbearable and he was taken emergently to operating room. He underwent fasciotomy incision and drainage of right calf hematoma and postoperatively he was admitted to ICU intubated. His chest x-ray repeat showed significant worsening of pleural effusion, patient was difficult to ventilate with high peak pressures on the ventilator, also his blood pressure showed hemodynamic compromise. The emergent thoracentesis was performed in the ICU with drainage of 2.2 L off fluid. SUBJECTIVE: 07/07/17: Patient remains intubated sedated. On lightening sedation he becomes very agitated FiO2. Chest x-ray post thoracentesis shows significant improvement in right effusion. Intermittently hypotensive not on pressors. s/p Incision and drainage of right calf hematoma, compartment release anterior and lateral compartments right calf, VAC dressing. 07/08/17: No acute events overnight. The patient continues on Precedex infusion currently at 0.4mcgs/kg/hr, plan to wean Precedex off and provide Ativan when necessary for agitation. Hemoglobin notably 7.0 today type and screen ordered for plans for OR wound closure on 07/09/17. The patient continues with symptoms of paranoia, but cooperative this a.m. Plan for swallow study to initiate feed. 07/09: Patient's hemoglobin continued to decline yesterday to 6.4.. The patient was transfused with 2 units RBCs .Yesterday the patient had a large melanotic stool also hematuria. Coagulation studies obtained within normal limits. GI was consulted, plan for colonoscopy today. Overnight the urine has cleared, hematuria resolved. The patient has a condom catheter good urinary output. Patient continues to be wean off phenylephrine. Patient continues to have paranoia, bouts of confusion. Objective Vital Signs Date Time Temp Pulse Resp B/P (MAP) Pulse Ox O2 Delivery O2 Flow Rate FiO2 07/09/17 06:00 103 07/09/17 04:50 123/58 9/29/17 04:00 98.2 20 96 07/08/17 19:48 Nasal Cannula 2.00 07/07/17 12:00 40 Intake and Output 07/09/17 07/09/17 07/10/17 08:00 16:00 00:00 Intake Total 3050 ml Output Total 500 ml Balance 2550 ml Result Diagram: 07/09/17 0504 07/09/17 0504 Other Results Microbiology Date/Time Source Procedure Growth Status 07/08/17 15:00 Stool Stool Stool Occult Blood (MARSHAL) - Final HEMOCCULT NEGATIVE Complete Imaging Last 24 hours Impressions Chest X-Ray 07/07/17 0000 Signed Impressions: Service Date/Time: Friday, July 07, 2017 01:22 - CONCLUSION: 1. Right thoracentesis without pneumothorax. Felipe Medina MD Objective Remarks GENERAL:This ia an obese, awake and alert, confused male cooperative, and pleasantly conversant SKIN: Warm and dry. HEAD: Normocephalic. EYES: No scleral icterus. No injection or drainage. NECK: Supple, trachea midline. No JVD or lymphadenopathy. Intubated. CARDIOVASCULAR: Regular rate and rhythm without murmurs, gallops, or rubs. RESPIRATORY: Breath sounds equal bilaterally. No accessory muscle use. GASTROINTESTINAL: Abdomen soft, non-tender, nondistended. MUSCULOSKELETAL: status post fasciotomy on the right calf, dressing dry and clean. Capillary refill brisk right lower extremity. BACK: Nontender without obvious deformity. NEURO EXAM: Mental Status: The patient is sedated and intubated Cranial Nerves: Pupils are round, reactive to light. No focal deficits. Movement of extremities 4 on command A/P Assessment and Plan Neuro: - Neurochecks per ICU protocol - Discontinue Precedex - Ativan 1 mg every 4 hours when necessary for agitation Resp: Acute hypoxemic respiratory failure R Pleural effusion - Postoperatively hypoxemic - 07/07 S/P thoracentesis with 2.2 L removed - Begin incentive spirometry - Followed by health policy analyst, Dr. Palacios CVS: New onset Atrial Fibrillation - Cardiology following, Dr. Krishnamurthy afib rate controlled - Continue carvedilol - EF of 30-35% with global hypokinesia, mild concentric left ventricular hypertrophy, mild mitral valve regurgitation. - Anticoagulation on hold due to possible further surgical procedures - Hold po Lasix. Continue IV 40 q12 ID/Heme/MSK: Right calf hematoma with compartment syndrome - Status post emergent fasciotomy and debridement - DC Meropenem, clindamycin, vancomycin. Place on Zosyn 4.5 GM IV q6h - Follow up panculture-NGTD - Transfuse to keep hemoglobin more than 7, transfused 2 units packed red blood cells 07/08. stable 8.2 continue to monitor -07/07 Pleural fluid negative GI: -Formal swallow study - Regular diet - 07/09- nothing by mouth for endoscopy and colonoscopy and I&D and wound closure of right lower extremity Endo: - Electrolyte replacement per protocol MSK: - PT evaluation and treat - OT evaluation and treat -Continue evaluation of the right lower extremity DVT GI prophylaxis - Teds SCDs - DVT prophylaxis per surgeon - Pepcid - Start chemical DVT prophylaxis in 24 hours Critical Care: Level 3 Physician Mirta Armstrong MD Jul 09, 2017 09:56
[2017-07-09] MEDS ORDERED: LIDOCAINE HCL 1% PF 5 ML AMPULE OTHER ONE (12:00)
[2017-07-09] MEDS ORDERED: ONDANSETRON HCL 4 MG/2 ML VIAL IV PUSH ONE (12:00)
[2017-07-09] MEDS ORDERED: PHENYLEPHRINE HCL 10 MG/ML VIAL IV ONE (12:00)
[2017-07-09] MEDS ORDERED: PHENYLEPH/NS 1000 MCG/10 ML SYR IV ONE (12:00)
[2017-07-09] MEDS ORDERED: PROPOFOL 200 MG/20 ML AMP IV ONE (12:00)
[2017-07-09] MEDS ORDERED: ROCURONIUM INJ 50 MG/5 ML SYRINGE IV PUSH ONE (12:00)
[2017-07-09] MEDS ORDERED: MIDAZOLAM HCL 2 MG/2 ML VIAL IV ONE (12:00)
[2017-07-09] MEDS ORDERED: LACTATED RINGER'S 1000 ML INJ 2,000 ML IV ONE (12:00)
--- NOTE | 2017-07-09 13:35 | PD.ORT.PN ---
Subjective Subjective Remarks POD 3 s/p I&D right leg doing well. pain controlled. no complaints. Objective Vitals Vital Signs Date Time Temp Pulse Resp B/P (MAP) Pulse Ox O2 Delivery O2 Flow Rate FiO2 07/09/17 12:00 97.7 92 20 90/56 (67) 95 07/09/17 12:00 92 07/09/17 10:00 109 07/09/17 08:00 97.5 101 19 138/82 (100) 98 07/09/17 08:00 101 07/09/17 06:00 103 07/09/17 04:50 108 123/58 07/09/17 04:00 98.2 103 20 137/77 (97) 96 07/09/17 04:00 103 07/09/17 02:00 100 07/09/17 00:00 102 07/09/17 00:00 98.8 102 20 123/93 (103) 97 07/08/17 22:00 50 07/08/17 21:25 98.8 119 21 115/64 96 07/08/17 20:25 126 173/92 07/08/17 20:00 62 07/08/17 20:00 98.8 127 24 151/86 (107) 07/08/17 19:48 92 Nasal Cannula 2.00 07/08/17 18:07 95.5 134 25 135/79 96 07/08/17 18:00 125 07/08/17 17:44 98.4 116 23 110/74 94 07/08/17 16:00 98.4 111 22 110/65 (80) 95 07/08/17 16:00 123 07/08/17 14:00 111 I/O 07/08/17 07/08/17 07/08/17 07/09/17 07/09/17 07/09/17 07:00 15:00 23:00 07:00 15:00 23:00 Intake Total 4256 ml 1315 ml 1020 ml 3050 ml Output Total 2750 ml 2850 ml 500 ml Balance 1506 ml 1315 ml -1830 ml 2550 ml Intake Oral 150 ml IV Total 4256 ml 1315 ml 600 ml 1800 ml Packed Cells 400 ml 900 ml Blood Product IV Normal Saline Flush 20 ml 200 ml Output Urine Total 2700 ml 2800 ml 500 ml Stool Total 0 ml Drainage Total 50 ml 50 ml # Bowel Movements 2 0 Result Diagram: 07/09/17 0504 07/09/17 0504 Other Results Laboratory Tests Test 07/08/17 14:30 Prothromb Time International Ratio 1.0 RATIO Prothrombin Time 11.5 SEC (9.8-11.6) Objective Remarks RLE: dressings clean and dry. intact. NVI. +vac with good seal Assessment & Plan Assessment and Plan 1) Right Leg Hematoma with compartment syndrome s/p Fasciotomy with I&D vac application - POD 3 -surgery today for wound closure right leg aMrtir Moreno Jul 09, 2017 13:34
[2017-07-09] MEDS ORDERED: GENTAMICIN SULFATE 80 MG/2 ML VIAL ONE (14:01)
[2017-07-09] MEDS ORDERED: SUGAMMADEX SODIUM 200 MG/2 ML VIAL IV PUSH ONE ×2 (14:26)
--- NOTE | 2017-07-09 15:09 | PD.OP ---
cc: Micah Antonio MD Operative Report Date of Surgery: Jul 09, 2017 Preoperative Diagnosis: Open fasciotomy wound of right calf Postoperative Diagnosis: Procedure: Irrigation and debridement right calf, closure of 6 cm of wound right calf, application wound VAC dressing Anesthesia: Gen. Surgeon: Micah Antonio Foam Machine Operator(s): TY Chang PA-C The surgical procedure was assisted by my physician billing assistant. My P.A. presence was necessary throughout this case for the manipulation and positioning of the surgical extremity. My P.A. was assisting me throughout the duration of this procedure. The skill set of a physician billing assistant was medically necessary to complete this procedure. During the surgical case the surgical services assistant was working at the back table and the physician billing assistant was directly assisting me. Operation and Findings: Lucian returns to the operating room today for treatment of right leg. Informed consent was confirmed preoperatively and operative site was marked. He is brought to operating room. He was given IV sedation and general anesthesia. Right leg was prepped with alcohol followed by Hibiclens and draped usual sterile fashion. He is on scheduled antibiotics. Timeout procedure was performed. Procedure began with examination of the wound. Overall the muscle and tissue appeared to relatively healthy. There was a large area of skin which had been previously excised because it was necrotic. The underlying muscle appeared viable. There was an area of hematoma underneath the skin. The wound was with curettes. Wound was now thoroughly irrigated. Attention was now turned towards closure. The proximal half of the wound was closed with 3-0 PDS and 3-0 nylon. A combination of retention suture and vertical mattress sutures were utilized. The lower portion is not closable. A VAC dressing was cut to fit the wound. VAC dressing was sealed appropriately. Sterile dressings were applied. Patient was transferred to recovery room in stable condition. Micah Antonio MD Jul 09, 2017 15:09
--- NOTE | 2017-07-09 15:17 | PD.ORT.PN ---
Subjective Subjective Remarks Patient stable and transported back to intensive care unit Objective Vitals Vital Signs Date Time Temp Pulse Resp B/P (MAP) Pulse Ox O2 Delivery O2 Flow Rate FiO2 07/09/17 12:00 97.7 92 20 90/56 (67) 95 07/09/17 12:00 92 07/09/17 10:00 109 144/81 07/09/17 10:00 109 07/09/17 08:00 97.5 101 19 138/82 (100) 98 07/09/17 08:00 101 07/09/17 06:00 103 07/09/17 04:50 108 123/58 07/09/17 04:00 98.2 103 20 137/77 (97) 96 07/09/17 04:00 103 07/09/17 02:00 100 07/09/17 00:00 102 07/09/17 00:00 98.8 102 20 123/93 (103) 97 07/08/17 22:00 50 07/08/17 21:25 98.8 119 21 115/64 96 07/08/17 20:25 126 173/92 07/08/17 20:00 62 07/08/17 20:00 98.8 127 24 151/86 (107) 07/08/17 19:48 92 Nasal Cannula 2.00 07/08/17 18:07 95.5 134 25 135/79 96 07/08/17 18:00 125 07/08/17 17:44 98.4 116 23 110/74 94 07/08/17 16:00 98.4 111 22 110/65 (80) 95 07/08/17 16:00 123 I/O 07/08/17 07/08/17 07/08/17 07/09/17 07/09/17 07/09/17 07:00 15:00 23:00 07:00 15:00 23:00 Intake Total 4256 ml 1315 ml 1020 ml 3050 ml 513 ml Output Total 2750 ml 2850 ml 500 ml Balance 1506 ml 1315 ml -1830 ml 2550 ml 513 ml Intake Oral 150 ml IV Total 4256 ml 1315 ml 600 ml 1800 ml 513 ml Packed Cells 400 ml 900 ml Blood Product IV Normal Saline Flush 20 ml 200 ml Output Urine Total 2700 ml 2800 ml 500 ml Stool Total 0 ml Drainage Total 50 ml 50 ml # Bowel Movements 2 0 Result Diagram: 07/09/17 0504 07/09/17 0504 Objective Remarks RLE: dressings clean and dry. intact. NVI. +vac with good seal Assessment & Plan Assessment and Plan 1) Right Leg Hematoma with compartment syndrome s/p Fasciotomy with I&D vac application - POD 3 -Second irrigation debridement with partial wound closure and wound VAC application applied POD#0 Maintain wound VAC at all times Plan for irrigation debridement Wednesday or Wednesday of next week. There is a possibility that skin graft may be needed eventually Scar Edwards Jr. Jul 09, 2017 15:17
--- NOTE | 2017-07-09 16:14 | PD.PROCEDR ---
GI Procedure REFERRING PHYSICIAN Dr. Mcwilliams PROCEDURE PERFORMED EGD followed by a colonoscopy which was incomplete due to poor prep INDICATION FOR PROCEDURE Anemia, GI bleed PROCEDURE: The procedure, risks and benefits were discussed with Mr. Flanagan and informed consent was obtained. Anesthesia sedated him with Diprivan. He was placed in the left lateral decubitus position. EGD: The Pentax videoscope was introduced through the oropharynx and advanced to the second portion of the duodenum under direct visualization. Retroflexion was performed in the stomach. FINDINGS: Esophagus this was normal Stomach this was normal Duodenum this was normal Colonoscopy: The Pentax videoscope was introduced through the rectum and advanced to proximal transverse colon. Retroflexion was performed in the rectum. Colonic prep was very poor FINDINGS: Due to her poor prep I was unable to complete the colonoscopy and there was very little colonic mucosa that was seen. That which was seen was basically unremarkable and within normal limits. No blood was seen throughout the colonoscopy ESTIMATED BLOOD LOSS: None SPECIMENS REMOVED: None COMPLICATIONS: None IMPRESSION: Normal EGD Incomplete colonoscopy PLAN: We will continue with colonic prep for a repeat colonoscopy tomorrow Continue with current supportive care Tristan Bravo MD Jul 09, 2017 16:14
[2017-07-09] MEDS ORDERED: PROPOFOL 1000 MG/100 ML INJ 100 ML ONE (16:17)
--- NOTE | 2017-07-09 16:36 | HHI.PR ---
Subjective Remarks 62 YO Obese WM mild SOB " My body is poisoned, nothing wrong with my Heart" Echo EF 30-35 % RVSP 41 Had Compartment release right calf Had Thoracentesis Off Fentanyl Objective Vital Signs Vital Signs Date Time Temp Pulse Resp B/P (MAP) Pulse Ox O2 Delivery O2 Flow Rate FiO2 07/09/17 12:00 97.7 92 20 90/56 (67) 95 07/09/17 12:00 92 07/09/17 10:00 109 144/81 07/09/17 10:00 109 07/09/17 08:00 97.5 101 19 138/82 (100) 98 07/09/17 08:00 101 07/09/17 06:00 103 07/09/17 04:50 108 123/58 07/09/17 04:00 98.2 103 20 137/77 (97) 96 07/09/17 04:00 103 07/09/17 02:00 100 07/09/17 00:00 102 07/09/17 00:00 98.8 102 20 123/93 (103) 97 07/08/17 22:00 50 07/08/17 21:25 98.8 119 21 115/64 96 07/08/17 20:25 126 173/92 07/08/17 20:00 62 07/08/17 20:00 98.8 127 24 151/86 (107) 07/08/17 19:48 92 Nasal Cannula 2.00 07/08/17 18:07 95.5 134 25 135/79 96 07/08/17 18:00 125 07/08/17 17:44 98.4 116 23 110/74 94 I/O 07/08/17 07/08/17 07/08/17 07/09/17 07/09/17 07/09/17 07:00 15:00 23:00 07:00 15:00 23:00 Intake Total 4256 ml 1315 ml 1020 ml 3050 ml 513 ml Output Total 2750 ml 2850 ml 500 ml Balance 1506 ml 1315 ml -1830 ml 2550 ml 513 ml Intake Oral 150 ml IV Total 4256 ml 1315 ml 600 ml 1800 ml 513 ml Packed Cells 400 ml 900 ml Blood Product IV Normal Saline Flush 20 ml 200 ml Output Urine Total 2700 ml 2800 ml 500 ml Stool Total 0 ml Drainage Total 50 ml 50 ml # Bowel Movements 2 0 Result Diagram: 07/09/17 0504 07/09/17 0504 Objective Remarks GENERAL: Obese Wm mild sob SKIN: Warm and dry. HEAD: Normocephalic. EYES: No scleral icterus. No injection or drainage. NECK: Supple, trachea midline. No JVD or lymphadenopathy. CARDIOVASCULAR: Regular rate and rhythm without murmurs, gallops, or rubs. RESPIRATORY: Breath sounds equal bilaterally. No accessory muscle use. Decreased BS at bases GASTROINTESTINAL: Abdomen soft, non-tender, nondistended. MUSCULOSKELETAL: No cyanosis, ++ edema. BACK: Nontender without obvious deformity. No CVA tenderness. A/P Assessment and Plan Bilat Pleural effusion CHF CMP AF PHTN ETOH use S/P Compartment release rright calf PLAN: Aerosol nebs prn SQ Heparin Supplement 02 Monitor H/H Lacho Palacios MD Jul 09, 2017 16:36
[2017-07-09] MEDS ORDERED: DO NOT ADM ANY ANTICOAGULANT DRUGS PRN (16:45)
[2017-07-09] MEDS ORDERED: PHENYLEPHRINE HCL 10 MG/ML VIAL ONE (16:52)
[2017-07-09] MEDS: PROPOFOL 1000 MG/100 ML IV PRN ×2 (17:00→18:20)
[2017-07-09] MEDS ORDERED: PEG (High)/E-LYTE SOLN 4000 ML BTL PO ONE (17:00)
[2017-07-09] MEDS: PROPOFOL 1000 MG/100 ML INJ 100 ML IV PRN ×2 (19:58→22:20)
[2017-07-09 21:06] LABS: AUTOMATED NEUTROPHIL # 14.3 TH/MM3 (1.8-7.7); BASOPHIL # 0.1 TH/MM3 (0-0.2); BASOPHIL % 0.7 % (0.0-2.0); EOSINOPHIL # 0.3 TH/MM3 (0-0.4); EOSINOPHIL % 1.8 % (0.0-4.0); HEMATOCRIT 25.7 % (39.0-51.0); HEMO FLAGS DIFF FINAL; LYMPH % 5.5 % (9.0-44.0); LYMPHOCYTE # 0.9 TH/MM3 (1.0-4.8); MEAN CORPUSCULAR HEMOGLOBIN 28.2 PG (27.0-34.0); MEAN CORPUSCULAR HGB CONC 32.8 % (32.0-36.0); MONO % 9.5 % (0.0-8.0); NEUT % 82.5 % (16.0-70.0); PLATELET COUNT 216 TH/MM3 (150-450); RED BLOOD COUNT 2.99 MIL/MM3 (4.50-5.90); RED CELL DISTRIBUTION WIDTH 16.6 % (11.6-17.2); WHITE BLOOD COUNT 17.3 TH/MM3 (4.0-11.0)
[2017-07-09] MEDS: fentaNYL 2,500 MCG/NS 250 ML IV PRN (21:19)
[2017-07-09] MEDS: CHLORHEXIDINE 0.12% (ORAL KIT) 15 ML CUP MT SCH (21:20)
--- NOTE | 2017-07-09 21:27 | RADRPT ---
EXAM DATE/TIME: 07/09/2017 20:48 [facility] COMPARISON: CHEST SINGLE AP, July 07, 2017, 3:44. INDICATIONS : ETT placement MEDICAL HISTORY : Hypertension. Cardiovascular disease. SURGICAL HISTORY : Coronary artery stent. ENCOUNTER: Subsequent ACUITY: 3 weeks PAIN SCORE: Non-responsive. LOCATION: Bilateral chest FINDINGS: Endotracheal tube tip is approximately 6 cm above the addie. Nasogastric tube courses into the stoma ch. There is a left internal jugular central venous catheter again seen, tip in the superior vena cav a. Consolidation and minimally small pleural effusion seen on the right. CONCLUSION: Endotracheal tube tip is approximately 6 cm above the addie. Cole Nieves MD on July 09, 2017 at 21:24 Board Certified Radiologist. This report was verified electronically.
[2017-07-10] VITALS (20 sets, daily range): BP systolic 91–115; BP diastolic 55–83; PULSE 88–105; RESP 14; TEMP 98.5–99.1; O2SAT 97–100
[2017-07-10] MEDS: PHENYLEPHRINE 40 MG in D5W 500 ML IV PRN ×3 (00:05→20:12)
[2017-07-10] MEDS: PROPOFOL 1000 MG/100 ML INJ 100 ML IV PRN ×5 (01:24→21:27)
[2017-07-10] MEDS: ICU - POTASSIUM CHLORIDE/AQUEOUS SOLN 40 MEQ/100 ML IVPB IV PRN (02:07)
[2017-07-10] MEDS: ALBUMIN HUMAN 25% 25 GM/100 ML BAGP IV SCH ×2 (02:51→16:01)
[2017-07-10] MEDS: PIPERACIL-TAZO 4.5 GM PREMIX 100 ML IV SCH ×4 (02:52→21:51)
[2017-07-10] MEDS: PANTOPRAZOLE SODIUM 40 MG VIAL IV PUSH SCH ×2 (03:57→16:02)
[2017-07-10] MEDS: CHLORHEXIDINE GLUCONATE 2 % 1 PACK (2 CLOTHS) TOP SCH (03:57)
[2017-07-10] MEDS: RESP: ALBUTEROL 2.5 MG/IPRATROPIUM 0.5 MG NEB (SCH) INH ×4 (04:11→21:02)
--- NOTE | 2017-07-10 05:34 | RADRPT ---
EXAM DATE/TIME: 07/10/2017 03:44 [facility] COMPARISON: CHEST SINGLE AP, July 09, 2017, 20:48. INDICATIONS : Respiratory failure. MEDICAL HISTORY : Hypertension. Cardiovascular disease. SURGICAL HISTORY : Coronary artery stent. ENCOUNTER: Subsequent ACUITY: 2 weeks PAIN SCORE: Non-responsive. LOCATION: Bilateral chest FINDINGS: A single view of the chest demonstrates endotracheal tube in good position. Left central line in supe rior vena cava. NG traverses the esophagus. Mild cardiomegaly. Basilar airspace disease slightly impr verito from July 09. CONCLUSION: 1. Support apparatus in good position. Basilar airspace disease slightly improved on the right since July 09. Felipe Medina MD on July 10, 2017 at 5:30 Board Certified Radiologist. This report was verified electronically.
[2017-07-10 06:26] LABS: HEMATOCRIT 24.3 % (39.0-51.0); MEAN CELL VOLUME 86.3 FL (80.0-100.0); MEAN CORPUSCULAR HEMOGLOBIN 27.1 PG (27.0-34.0); MEAN CORPUSCULAR HGB CONC 31.4 % (32.0-36.0); PLATELET COUNT 197 TH/MM3 (150-450); RED BLOOD COUNT 2.81 MIL/MM3 (4.50-5.90); REVIEW FLAG FINAL; WHITE BLOOD COUNT 15.3 TH/MM3 (4.0-11.0)
[2017-07-10 06:52] LABS: POTASSIUM 3.9 MEQ/L (3.5-5.1)
[2017-07-10] MEDS: CHLORHEXIDINE 0.12% (ORAL KIT) 15 ML CUP MT SCH ×2 (08:55→21:52)
[2017-07-10] MEDS: guaiFENesin E.R. 600 MG TAB PO SCH ×2 (09:00→21:00)
[2017-07-10] MEDS: DOCUSATE SODIUM 50 MG/SENNA 8.6 MG TAB PO SCH ×2 (09:00→21:00)
[2017-07-10] MEDS: LISINOPRIL 10 MG TAB PO SCH (09:00)
[2017-07-10] MEDS: SODIUM CHLORIDE 0.9% FLUSH 10 ML FLUSH SCH ×2 (09:06→21:52)
[2017-07-10] MEDS: POTASSIUM CHLORIDE 25 MEQ EFFERVESCENT TAB PO SCH ×2 (09:22→21:51)
[2017-07-10] MEDS: FUROSEMIDE 40 MG/4 ML VIAL IV PUSH SCH ×2 (09:22→17:06)
[2017-07-10] MEDS: DIGOXIN 0.25 MG TAB PO SCH (09:22)
[2017-07-10] MEDS: CARVEDILOL 12.5 MG TAB PO SCH ×2 (09:22→21:51)
[2017-07-10 10:09] LABS: BLOOD GAS BASE EXCESS 7.1 mmol/L (-2-2); BLOOD GAS CARBOXYHEMOGLOBIN 1.9 % (0-4); BLOOD GAS HCO3 32 mmol/L (22-26); BLOOD GAS METHEMOGLOBIN 1.1 % (0-2); BLOOD GAS O2 HGB SATURATION 94 % (90-100); BLOOD GAS OXYGEN CONTENT 10.4 Vol % (12.0-20.0); BLOOD GAS PCO2 52 mmHg (38-42); BLOOD GAS PO2 82 mmHg (61-120); BLOOD GAS TOTAL HGB 7.8 G/DL (12.0-16.0); CRITICAL VALUE YES; TEMP CORR TO 98.6
[2017-07-10 10:10] LABS: DRAW SITE RT RADIAL; FIO2 40 %; NUMBER OF ARTERIAL PUNCTURES 1; OXYGEN DEVICE VENTILATOR; STAT NO; ULNAR PULSE PRESENT; VENT SETTINGS PRVC 14/600/1.0IT/5+
--- NOTE | 2017-07-10 10:19 | HHI.CCPN ---
Subjective Remarks/Hospital Course 62-year-old with multiple medical problems. He was initially admitted to the hospital on 06/28/17 with a chief complaint of shortness of breath and swelling of both legs. The CAT scan of the chest revealed large pleural effusion on the right however patient was refusing thoracentesis. He was also diagnosed with a new onset of atrial fibrillation and has been on anticoagulation while in the hospital. He was also complaining of approximately two day history of increasing leg pain and swelling and significant bruising. His pain became unbearable and he was taken emergently to operating room. He underwent fasciotomy incision and drainage of right calf hematoma and postoperatively he was admitted to ICU intubated. His chest x-ray repeat showed significant worsening of pleural effusion, patient was difficult to ventilate with high peak pressures on the ventilator, also his blood pressure showed hemodynamic compromise. The emergent thoracentesis was performed in the ICU with drainage of 2.2 L off fluid. SUBJECTIVE: 07/07/17: Patient remains intubated sedated. On lightening sedation he becomes very agitated FiO2. Chest x-ray post thoracentesis shows significant improvement in right effusion. Intermittently hypotensive not on pressors. s/p Incision and drainage of right calf hematoma, compartment release anterior and lateral compartments right calf, VAC dressing. 07/08/17: No acute events overnight. The patient continues on Precedex infusion currently at 0.4mcgs/kg/hr, plan to wean Precedex off and provide Ativan when necessary for agitation. Hemoglobin notably 7.0 today type and screen ordered for plans for OR wound closure on 07/09/17. The patient continues with symptoms of paranoia, but cooperative this a.m. Plan for swallow study to initiate feed. 07/09: Patient's hemoglobin continued to decline yesterday to 6.4.. The patient was transfused with 2 units RBCs .Yesterday the patient had a large melanotic stool also hematuria. Coagulation studies obtained within normal limits. GI was consulted, plan for colonoscopy today. Overnight the urine has cleared, hematuria resolved. The patient has a condom catheter good urinary output. Patient continues to be wean off phenylephrine. Patient continues to have paranoia, bouts of confusion. 07/10: Yesterday the patient underwent I&D of the right calf and partial closure of the right calf wound, returned to ICU intubated and sedated placed on propofol and fentanyl infusion. The patient also underwent upper endoscopy, an attempted colonoscopy but was unsuccessful secondary to poor prep. The patient received GoLYTELY throughout the night via OGT with plans for repeat colonoscopy today. Hemodynamically the patient continues to be hypotensive, lisinopril placed on hold, carvedilol decreased dosage by half to 12.5 mg. Low- dose phenylephrine infusion continues at 50 mcgs. Objective Vital Signs Date Time Temp Pulse Resp B/P (MAP) Pulse Ox O2 Delivery O2 Flow Rate FiO2 07/10/17 08:40 100 40 07/10/17 08:00 90 07/10/17 05:15 116/75 07/10/17 04:00 98.9 14 07/09/17 17:45 Mechanical Ventilator 07/08/17 19:48 2.00 Intake and Output 07/10/17 07/10/17 07/11/17 08:00 16:00 00:00 Intake Total 6400 ml Output Total 1225 ml Balance 5175 ml Result Diagram: 07/10/17 0600 07/10/17 0600 Other Results Microbiology Date/Time Source Procedure Growth Status 07/08/17 15:00 Stool Stool Stool Occult Blood (MARSHAL) - Final HEMOCCULT NEGATIVE Complete Imaging Last 24 hours Impressions Chest X-Ray 07/07/17 0000 Signed Impressions: Service Date/Time: Friday, July 07, 2017 01:22 - CONCLUSION: 1. Right thoracentesis without pneumothorax. Felipe Medina MD Objective Remarks GENERAL:This ia an obese, awake and alert, confused male cooperative, and pleasantly conversant SKIN: Warm and dry. HEAD: Normocephalic. EYES: No scleral icterus. No injection or drainage. NECK: Supple, trachea midline. No JVD or lymphadenopathy. Intubated. CARDIOVASCULAR: Regular rate and rhythm without murmurs, gallops, or rubs. RESPIRATORY: Breath sounds equal bilaterally. No accessory muscle use. GASTROINTESTINAL: Abdomen soft, non-tender, nondistended. MUSCULOSKELETAL: status post fasciotomy on the right calf, dressing dry and clean. Capillary refill brisk right lower extremity. BACK: Nontender without obvious deformity. NEURO EXAM: Mental Status: The patient is sedated and intubated Cranial Nerves: Pupils are round, reactive to light. No focal deficits. Movement of extremities 4 on command A/P Assessment and Plan Neuro: - Neurochecks per ICU protocol -Patient remained intubated postop on 07/09-propofol and fentanyl infusion for ventilator synchrony - Ativan 1 mg every 4 hours when necessary for agitation Resp: Acute hypoxemic respiratory failure R Pleural effusion - Postoperatively hypoxemic-the patient remained intubated 07/09 -07/10 ABG on FiO2 0.40-7.40/51/82/31/7 - 07/07 S/P thoracentesis with 2.2 L removed - Begin incentive spirometry - Followed by observer electrical prospecting, Dr. Palacios CVS: New onset Atrial Fibrillation - Cardiology following, Dr. Krishnamurthy afib rate controlled - Carvedilol 25mg decreased to 12.5mg, heart rate 90's - EF of 30-35% with global hypokinesia, mild concentric left ventricular hypertrophy, mild mitral valve regurgitation. - Anticoagulation on hold due to possible further surgical procedures - Continue Lasix IV 40 q12 ID/Heme/MSK: Right calf hematoma with compartment syndrome - Status post emergent fasciotomy and debridement - DC Meropenem, clindamycin, vancomycin. Zosyn 4.5 GM IV q6h (Day 4) - Follow up panculture-NGTD - Transfuse to keep hemoglobin more than 7, transfused 2 units packed red blood cells 07/08. Hgb stable 7.6 continue to monitor -07/07 Pleural fluid negative GI: -Formal swallow study recommendations - Regular diet when patient is able to resume diet - 07/09- nothing by mouth for endoscopy and colonoscopy and I&D and wound closure of right lower extremity 07/10-colonoscopy scheduled today, and H2 incomplete bowel prep on 07/09 Endo: - Electrolyte replacement per protocol MSK: - PT evaluation and treat - OT evaluation and treat -Continue evaluation of the right lower extremity DVT GI prophylaxis - Teds SCDs - DVT prophylaxis per surgeon - Pepcid - Start chemical DVT prophylaxis in 24 hours Critical Care: Level 3 Discussed with MACHINE PACK ASSEMBLER at bedside Physician Mirta Armstrong MD Jul 10, 2017 10:19
--- NOTE | 2017-07-10 14:20 | HHI.GIFU ---
Subjective Remarks Lying in bed in no apparent distress. (Marilu Ocampo) Objective Vitals I&O Vital Signs Date Time Temp Pulse Resp B/P (MAP) Pulse Ox O2 Delivery O2 Flow Rate FiO2 07/10/17 12:42 81 93/58 07/10/17 12:00 99.0 95 14 100/70 (80) 100 07/10/17 12:00 92 07/10/17 12:00 40 07/10/17 11:45 100 40 07/10/17 10:00 90 07/10/17 08:40 100 40 07/10/17 08:00 90 07/10/17 08:00 40 07/10/17 08:00 99.1 92 14 115/76 (89) 100 07/10/17 06:00 98 07/10/17 05:15 93 116/75 07/10/17 04:12 100 40 07/10/17 04:00 98.9 95 14 107/65 (79) 100 07/10/17 04:00 50 07/10/17 04:00 92 07/10/17 02:00 98 07/10/17 01:37 100 40 07/10/17 00:05 92 104/70 07/10/17 00:00 50 07/10/17 00:00 99.0 94 14 104/70 (81) 100 07/10/17 00:00 99 07/09/17 22:09 99 50 07/09/17 22:00 50 07/09/17 22:00 96 07/09/17 20:25 100 50 07/09/17 20:00 98 07/09/17 20:00 50 07/09/17 20:00 97.9 92 14 147/90 (109) 100 07/09/17 18:31 50 50 07/09/17 18:30 97 07/09/17 18:30 97.5 97 14 121/80 (94) 100 07/09/17 17:45 98.1 96 16 117/73 (88) 96 Mechanical Ventilator 50 Arterial Line 07/09/17 17:45 50 07/09/17 17:30 96 16 112/73 (86) 96 Mechanical Ventilator 50 Arterial Line 07/09/17 17:15 97 16 118/74 (89) 96 Mechanical Ventilator 50 Arterial Line 07/09/17 17:00 16 104/75 (85) 96 Mechanical Ventilator 50 Arterial Line 07/09/17 17:00 88 104/75 07/09/17 16:51 50 07/09/17 16:51 98.1 88 16 102/68 (79) 97 Mechanical Ventilator 50 Arterial Line I/O 07/09/17 07/09/17 07/09/17 07/10/17 07/10/17 07/10/17 07:00 15:00 23:00 07:00 15:00 23:00 Intake Total 3050 ml 513 ml 1346 ml 6400 ml 100 ml Output Total 500 ml 2670 ml 1225 ml Balance 2550 ml 513 ml -1324 ml 5175 ml 100 ml Intake Oral 150 ml 296 ml IV Total 1800 ml 513 ml 200 ml 2400 ml 100 ml Packed Cells 900 ml Blood Product IV Normal Saline Flush 200 ml Tube Irrigant 4000 ml Other 850 ml Output Urine Total 500 ml 2600 ml 375 ml Stool Total 800 ml Drainage Total 50 ml 50 ml Estimated Blood Loss 20 ml # Bowel Movements 0 4 Laboratory Laboratory Tests Test 07/09/17 20:46 07/10/17 06:00 07/10/17 09:56 White Blood Count 17.3 15.3 Red Blood Count 2.99 2.81 Hemoglobin 8.4 7.6 Hematocrit 25.7 24.3 Mean Corpuscular Volume 86.0 86.3 Mean Corpuscular Hemoglobin 28.2 27.1 Mean Corpuscular Hemoglobin Concent 32.8 31.4 Red Cell Distribution Width 16.6 17.0 Platelet Count 216 197 Mean Platelet Volume 9.7 9.5 Neutrophils (%) (Auto) 82.5 Lymphocytes (%) (Auto) 5.5 Monocytes (%) (Auto) 9.5 Eosinophils (%) (Auto) 1.8 Basophils (%) (Auto) 0.7 Neutrophils # (Auto) 14.3 Lymphocytes # (Auto) 0.9 Monocytes # (Auto) 1.7 Eosinophils # (Auto) 0.3 Basophils # (Auto) 0.1 CBC Comment DIFF FINAL Differential Comment Potassium Level 3.2 3.9 Blood Urea Nitrogen 12 Creatinine 1.12 Random Glucose 101 Calcium Level 8.5 Sodium Level 141 Chloride Level 101 Carbon Dioxide Level 32.0 Anion Gap 8 Estimat Glomerular Filtration Rate 66 Blood Gas Puncture Site RT RADIAL Blood Gas Patient Temperature 98.6 Blood Gas HCO3 32 Blood Gas Base Excess 7.1 Blood Gas Oxygen Saturation 94 Arterial Blood pH 7.41 Arterial Blood Partial Pressure CO2 52 Arterial Blood Partial Pressure O2 82 Arterial Blood Oxygen Content 10.4 Arterial Blood Carboxyhemoglobin 1.9 Arterial Blood Methemoglobin 1.1 Blood Gas Hemoglobin 7.8 Oxygen Delivery Device VENTILATOR Blood Gas Ventilator Setting PRVC 14/600/1.0IT/5+ Blood Gas Inspired Oxygen 40 Date/Time Source Procedure Growth Status 06/28/17 16:51 Blood Peripheral Aerobic Blood Culture - Final NO GROWTH IN 5 DAYS Complete 06/28/17 16:51 Blood Peripheral Anaerobic Blood Culture - Final NO GROWTH IN 5 DAYS Complete 07/07/17 01:00 Fluid Pleural Fluid Fungal Smear - Final NO FUNGAL ELEMENTS SEEN. Resulted 07/07/17 01:00 Fluid Pleural Fluid Fungal Culture Pending Resulted 07/08/17 15:00 Stool Stool Stool Occult Blood (MARSHAL) - Final HEMOCCULT NEGATIVE Complete 06/28/17 20:03 Urine Clean Catch Legionella Antigen - Final PRESUMPTIVE NEGATIVE FOR LEGIONELLA P... Complete 06/28/17 20:03 Urine Clean Catch Streptococcus pneumoniae Antigen (M - Final PRESUMPTIVE NEGATIVE FOR STREPTOCOCCU... Complete Imaging Last Impressions Chest X-Ray 07/10/17 0600 Signed Impressions: Service Date/Time: Monday, July 10, 2017 03:44 - CONCLUSION: 1. Support apparatus in good position. Basilar airspace disease slightly improved on the right since July 09. Felipe Medina MD Lower Extremity Ultrasound 07/06/17 0000 Signed Impressions: Service Date/Time: Thursday, July 06, 2017 13:20 - CONCLUSION: 1. Probable large hematoma in the right calf this measures at least 36 x 5 x 7.6 cm. Please see above discussion. Srikanth Ware MD CT Angiography 06/28/17 1327 Signed Impressions: Service Date/Time: Wednesday, June 28, 2017 15:58 - CONCLUSION: 1. No pulmonary embolus identified. 2. Large right-sided pleural effusion with consolidation of the right lower lobe. Srikanth Ware MD Physical Exam HEENT: Normocephalic; atraumatic; no jaundice. NECK: Neck is supple. Intubated CHEST: CTA CARDIAC: RRR with no murmur gallop or rubs. ABDOMEN: Soft, obese, mild distention, nontender; no hepatosplenomegaly; bowel sounds are present EXTREMITIES: No clubbing, cyanosis, or edema. SKIN: Normal; no rash; no jaundice. 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 (Marilu Ocampo) Assessment and Plan Plan ASSESSMENT - Anemia, Hemoglobin dropped from 7 (07/07) to 6.4 on 07/08, s/p blood transfusion x 2 (07/07) and x 2 (07/08). Had normal Hemoglobin of 13.5 on 06/28. Patient with hematuria and large bloody BM 07/08, record bloody BM 07/06 as well. EGD/Colonoscopy 07/09/17--Normal EGD. Incomplete colonoscopy secondary to poor bowel prep. Patient received GoLYTELY throughout the night last night via OGT for repeat colonoscopy today. - New onset AF rate controlled, anticoag held for procedures, per CCM, CArdiology following - Acute hypoxemic respiratory failure, right pleural effusion, per CCM, pulmonary following - Right calf hematoma s/p fasciotomy - Hematuria, painful urination - Hematuria resolved. Urology following PLAN - Repeat Colonoscopy today - Monitor HH, transfuse as needed - Supportive care - Further recommendations to follow based on results of above Patient seen and examined by Dr. Ta and myself and this note is written on his behalf. (Marilu Ocampo) Plan Patient was seen and examined, agree with the above note Colonoscopy was done this afternoon FINDINGS: Mass in the hepatic flexure most likely consistent with cancer biopsy was done 3 polyps in the ascending colon removed by snare Large polyp in the sigmoid removed by snare COMPLICATIONS: None PLAN: Follow up biopsy CEA Surgical consult Oncology consult (Kash Ta MD) Marilu Ocampo Jul 10, 2017 14:20 Kash Ta MD Jul 10, 2017 14:55
--- NOTE | 2017-07-10 14:53 | PD.PROCEDR ---
GI Procedure PROCEDURE PERFORMED colonoscopy with snare polypectom and Bx INDICATION FOR PROCEDURE GI bleed, Anemia PROCEDURE: The procedure, risks and benefits were discussed with Mr. Flanagan and informed consent was obtained. Anesthesia sedated him with Diprivan. He was placed in the left lateral decubitus position. Colonoscopy: The Pentax videoscope was introduced through the rectum and advanced to cecum. Retroflexion was performed in the rectum. Colonic prep was fair, biopsy from a mass in the hepatic flexure most likely consistent with cancer ulcerated and friable about 3-4 cm, 3 polyps in the ascending colon ranging in size between 5- 1-1/2 cm removed by snare 1-1/2 cm polyp in the sigmoid removed by snare FINDINGS: Mass in the hepatic flexure most likely consistent with cancer biopsy was done 3 polyps in the ascending colon removed by snare Large polyp in the sigmoid removed by snare ESTIMATED BLOOD LOSS: None SPECIMENS REMOVED: Biopsy from mass in the ascending colon Multiple polyps removed COMPLICATIONS: None PLAN: Follow up biopsy [facility] Surgical consult Oncology consult Kash Ta MD Jul 10, 2017 14:53
[2017-07-10] MEDS ORDERED: DIATRIZOATE MEGLUM/DIATRIZOATE SOD 9 ML CUP PO ONE (15:15)
[2017-07-10] MEDS: fentaNYL 2,500 MCG/NS 250 ML IV PRN (16:55)
[2017-07-10] MEDS ORDERED: IOHEXOL 350 MG/ML 10 ML VIAL (for RAD DIAG) IVCONTRAST ONE (21:04)
--- NOTE | 2017-07-10 21:19 | MB ---
cc: OSMEL COATS MD DATE OF CONSULTATION 07/10/2017 REASON FOR CONSULTATION Colon mass, concern for cancer. HISTORY OF PRESENT ILLNESS The patient is a 62-year-old male with chronic EtOH abuse who presented with leg swelling, shortness of breath. He was found to have new-onset atrial fibrillation, pleural effusion and a compartment syndrome of the right calf. He was intubated and went to the OR. He is status post this. The patient also presented with episodes of GI bleed. The patient is currently in an intubated state therefore, history obtained from the charts and via the nursing staff. The patient noted to have crampy abdominal pain and dark maroon stools, on initial presentation, he was significantly anemic for which he received blood transfusion from and improved somewhat from this. He underwent colonoscopy with findings of 3-4 cm hepatic flexure mass suspicious for carcinoma, therefore surgery was consulted for further evaluation. On my exam the patient remains intubated, currently sedated. He is not able to follow commands or verbalize at this day and time. PAST MEDICAL HISTORY The review of the medical chart, anxiety disorder, depression, coronary artery disease, MA, hypertension. PAST SURGICAL HISTORY Tonsillectomy, fasciotomy with wound VAC. ALLERGIES CEFTRIAXONE. MEDICATIONS See EMR. FAMILY HISTORY Unable to obtain. SOCIAL HISTORY Per chart drinks over 16 years daily since a very young age. REVIEW OF SYSTEMS GENERAL: Unable to obtain. HEENT: Unable to obtain. NECK: Unable to obtain. LUNGS: Intubated, unable to obtain. CARDIAC: A-fib, unable to obtain. ABDOMEN: GI bleed, otherwise unable to obtain. ENDOCRINE: Not able to obtain. INTEGUMENT: Unable to obtain. PHYSICAL EXAMINATION GENERAL: The patient in no acute distress. VITAL SIGNS: Temperature 98.8, pulse 98, respirations 14, blood pressure 112/83, saturation 100% on the ventilator of 40%. HEENT: Pupils equally round, reactive. ET tube in place. NECK: Supple. Trachea midline. LUNGS: Bilateral expansion. Coarse. HEART: S1-S2 irregular irregular. ABDOMEN: Soft, obese, nontender. : Within normal limits. EXTREMITIES: Minimal edema. NEUROLOGIC: Unable to assess LABORATORY AND DIAGNOSTIC DATA WBC is 15.3, hemoglobin 7.6, hematocrit 24.3, platelets 197. Sodium is 141, potassium 3.9, chloride 101, BUN is 12, creatinine 1.1, calcium 8.5. CEA is 1, albumin is 2.8. IMAGING STUDIES Reviewed by myself, chest x-ray basilar airspace disease. CT angio 06/28, no pulmonary emboli identified. Large right pleural effusion. No evidence of metastatic disease on chest x-ray. ASSESSMENT A 62-year-old male, right hepatic flexure colon mass suspicious for carcinoma, status post biopsy pending. PLAN After full clinical, radiologic, laboratory workup the patient with above-named issues including concern for hepatic flexure carcinoma. He is discussed with staff as the patient is currently intubated and nonverbal. The patient will need further workup including await biopsy results for confirmation and determination of the cancer type. Further CT abdomen, pelvis for further staging workup is pending. We will follow up on both of these. If the patient has an isolated colon cancer with likely benefit from resection after medical optimization. However, if patient found to have metastatic disease medical oncology to assess as well. Will continue to follow closely. MD SAM Rosado/GERRY /8:42 PM /8:56 PM
--- NOTE | 2017-07-10 21:23 | RADRPT ---
EXAM DATE/TIME: 07/10/2017 20:38 [facility] COMPARISON: No previous studies available for comparison. INDICATIONS : Abdominal pain, Evalaute for mass in colon. IV CONTRAST: 95 cc Omnipaque 350 (iohexol) IV ORAL CONTRAST: Prescribed oral contrast ingested. RADIATION DOSE: 36.86 CTDIvol (mGy) ; Patient body habitus MEDICAL HISTORY : Hypertension. Cardiovascular disease Myocardial infarction. SURGICAL HISTORY : None. ENCOUNTER: Initial ACUITY: 1 day PAIN SCALE: Non-responsive LOCATION: All quadrants. TECHNIQUE: Large qedhm-[id number] (50 cm) scanning was performed. Volumetric scanning of the abdomen and pelvis wa s performed. Using automated exposure control and adjustment of the mA and/or kV according to patien t size, radiation dose was kept as low as reasonably achievable to obtain optimal diagnostic quality images. DICOM format image data is available electronically for review and comparison. FINDINGS: LOWER LUNGS: Bilateral pleural effusions and lower lung consolidation adjacent to the effusions, right greater stacey n left. The right effusion measures up to 5 cm in thickness. LIVER: Homogeneous density without lesion for noncontrast technique. There is no dilation of the biliary tr ee. No calcified gallstones in a distended gallbladder. SPLEEN: Normal size without lesion. PANCREAS: Within normal limits. KIDNEYS: Normal in size and shape. There is no mass, stone or hydronephrosis. Bilateral renal cysts, largest in lower pole left side measuring 2.6 cm. Both ureters are mildly prominent and have a tortuous cou rse about the distended urinary bladder. No calcifications within either ureter. ADRENAL GLANDS: Within normal limits. VASCULAR: There is no aortic aneurysm. BOWEL/MESENTERY: The stomach is nondistended with gastric tube in place. Oral contrast passes through to distal small bowel. There is prominent gas throughout most of the loops of the colon. Most of the descending co addison is intraperitoneal in position and the sigmoid colon also is seen in the anterior peritoneum. Th ere is some minimal induration of the mesenteric fat and the retroperitoneal fat. No evidence of bk e fluid in the pelvis. ABDOMINAL WALL: Within normal limits. RETROPERITONEUM: There is no lymphadenopathy. BLADDER: Markedly distended urinary bladder measuring in excess of 16 cm. Margins are smooth. No focal densi ties within the lumen. REPRODUCTIVE: Within normal limits. INGUINAL: There is no lymphadenopathy or hernia. MUSCULOSKELETAL: Moderate degenerative changes in the posterior elements of the lower lumbar spine. CONCLUSION: 1. Bilateral pleural effusions and lower lobe consolidation, right greater than left. 2. Distended urinary bladder with smooth margins and no focal opacities within the lumen. 3. No evidence of hydronephrosis. 4. No dilated loops of small bowel. Gas is seen in the lumen of the colon down to the level of the rectum. Linwood Kramer MD on July 10, 2017 at 21:12 Board Certified Radiologist. This report was verified electronically.
[2017-07-10] MEDS: SODIUM CHLOR 0.45% 1000 ML INJ 1,000 ML IV SCH (23:31)
[2017-07-11] VITALS (19 sets, daily range): BP systolic 78–150; BP diastolic 48–85; PULSE 88–116; RESP 14–30; TEMP 97.8–98.8; O2SAT 92–100
[2017-07-11] MEDS: ALBUMIN HUMAN 25% 25 GM/100 ML BAGP IV SCH ×2 (02:39→13:43)
[2017-07-11] MEDS: PIPERACIL-TAZO 4.5 GM PREMIX 100 ML IV SCH ×4 (02:39→22:52)
[2017-07-11] MEDS: PHENYLEPHRINE 40 MG in D5W 500 ML IV PRN ×3 (02:39→17:27)
[2017-07-11] MEDS: PROPOFOL 1000 MG/100 ML INJ 100 ML IV PRN ×2 (02:40→06:59)
[2017-07-11] MEDS: CHLORHEXIDINE GLUCONATE 2 % 1 PACK (2 CLOTHS) TOP SCH (03:59)
[2017-07-11] MEDS: PANTOPRAZOLE SODIUM 40 MG VIAL IV PUSH SCH ×2 (04:50→16:11)
[2017-07-11 05:15] LABS: HEMATOCRIT 24.3 % (39.0-51.0); MEAN CELL VOLUME 87.1 FL (80.0-100.0); MEAN CORPUSCULAR HEMOGLOBIN 28.4 PG (27.0-34.0); MEAN CORPUSCULAR HGB CONC 32.6 % (32.0-36.0); PLATELET COUNT 232 TH/MM3 (150-450); RED BLOOD COUNT 2.79 MIL/MM3 (4.50-5.90); RED CELL DISTRIBUTION WIDTH 17.4 % (11.6-17.2); REVIEW FLAG FINAL; WHITE BLOOD COUNT 18.2 TH/MM3 (4.0-11.0)
--- NOTE | 2017-07-11 05:29 | RADRPT ---
EXAM DATE/TIME: 07/11/2017 03:29 [facility] COMPARISON: CHEST SINGLE AP, July 10, 2017, 3:44. INDICATIONS : Evaluate for effusion MEDICAL HISTORY : Hypertension. Cardiovascular disease. SURGICAL HISTORY : Coronary artery stent. ENCOUNTER: Subsequent ACUITY: 2 weeks PAIN SCORE: Non-responsive. LOCATION: Bilateral chest FINDINGS: Endotracheal tube in good position. Left central line in superior vena cava. Nasogastric tube enters stomach. Bilateral mostly basilar airspace disease and pleural effusions similar to July 10 cons idering differences in technique. No pneumothorax. CONCLUSION: 1. Supe apparatus unchanged. Stable basilar airspace disease and pleural effusions. Felipe Medina MD on July 11, 2017 at 5:25 Board Certified Radiologist. This report was verified electronically.
[2017-07-11 05:59] LABS: BICARBONATE 32.5 MEQ/L (21.0-32.0); MAGNESIUM 2.4 MG/DL (1.5-2.5); POTASSIUM 3.5 MEQ/L (3.5-5.1)
[2017-07-11] MEDS: ICU - POTASSIUM CHLORIDE/AQUEOUS SOLN 40 MEQ/100 ML IVPB IV PRN (07:40)
--- NOTE | 2017-07-11 07:48 | HHI.CCPN ---
Subjective Remarks/Hospital Course 62-year-old with multiple medical problems. He was initially admitted to the hospital on 06/28/17 with a chief complaint of shortness of breath and swelling of both legs. The CAT scan of the chest revealed large pleural effusion on the right however patient was refusing thoracentesis. He was also diagnosed with a new onset of atrial fibrillation and has been on anticoagulation while in the hospital. He was also complaining of approximately two day history of increasing leg pain and swelling and significant bruising. His pain became unbearable and he was taken emergently to operating room. He underwent fasciotomy incision and drainage of right calf hematoma and postoperatively he was admitted to ICU intubated. His chest x-ray repeat showed significant worsening of pleural effusion, patient was difficult to ventilate with high peak pressures on the ventilator, also his blood pressure showed hemodynamic compromise. The emergent thoracentesis was performed in the ICU with drainage of 2.2 L off fluid. SUBJECTIVE: 07/07/17: Patient remains intubated sedated. On lightening sedation he becomes very agitated FiO2. Chest x-ray post thoracentesis shows significant improvement in right effusion. Intermittently hypotensive not on pressors. s/p Incision and drainage of right calf hematoma, compartment release anterior and lateral compartments right calf, VAC dressing. 07/08/17: No acute events overnight. The patient continues on Precedex infusion currently at 0.4mcgs/kg/hr, plan to wean Precedex off and provide Ativan when necessary for agitation. Hemoglobin notably 7.0 today type and screen ordered for plans for OR wound closure on 07/09/17. The patient continues with symptoms of paranoia, but cooperative this a.m. Plan for swallow study to initiate feed. 07/09: Patient's hemoglobin continued to decline yesterday to 6.4.. The patient was transfused with 2 units RBCs .Yesterday the patient had a large melanotic stool also hematuria. Coagulation studies obtained within normal limits. GI was consulted, plan for colonoscopy today. Overnight the urine has cleared, hematuria resolved. The patient has a condom catheter good urinary output. Patient continues to be wean off phenylephrine. Patient continues to have paranoia, bouts of confusion. 07/10: Yesterday the patient underwent I&D of the right calf and partial closure of the right calf wound, returned to ICU intubated and sedated placed on propofol and fentanyl infusion. The patient also underwent upper endoscopy, an attempted colonoscopy but was unsuccessful secondary to poor prep. The patient received GoLYTELY throughout the night via OGT with plans for repeat colonoscopy today. Hemodynamically the patient continues to be hypotensive, lisinopril placed on hold, carvedilol decreased dosage by half to 12.5 mg. Low- dose phenylephrine infusion continues at 50 mcgs. 07/11: Hemoglobin stable .The patient underwent colonoscopy yesterday afternoon which revealed multiple polyps in the ascending colon as well as one large colonic mass in the hepatic flexure measuring 3-4 cm issues for carcinoma. General surgery and oncology was consulted. CEA lab, colonic biopsy pending. Plan for CPAP trials this a.m. with plans for extubation. Objective Vital Signs Date Time Temp Pulse Resp B/P (MAP) Pulse Ox O2 Delivery O2 Flow Rate FiO2 07/11/17 06:00 90 07/11/17 04:25 100 40 07/11/17 04:00 98.7 14 100/56 (71) 07/10/17 19:00 Mechanical Ventilator 07/08/17 19:48 2.00 Intake and Output 07/11/17 07/11/17 07/12/17 08:00 16:00 00:00 Intake Total 600 ml Output Total 450 ml Balance 150 ml Result Diagram: 07/11/17 0500 07/11/17 0500 Other Results Microbiology Date/Time Source Procedure Growth Status 07/08/17 15:00 Stool Stool Stool Occult Blood (MARSHAL) - Final HEMOCCULT NEGATIVE Complete Laboratory Tests Test 07/10/17 09:56 Blood Gas Puncture Site RT RADIAL Blood Gas Patient Temperature 98.6 Blood Gas HCO3 32 mmol/L (22-26) Blood Gas Base Excess 7.1 mmol/L (-2-2) Blood Gas Oxygen Saturation 94 % (90-100) Arterial Blood pH 7.41 (7.380-7.420) Arterial Blood Partial Pressure CO2 52 mmHg (38-42) Arterial Blood Partial Pressure O2 82 mmHg (61-120) Arterial Blood Oxygen Content 10.4 Vol % (12.0-20.0) Arterial Blood Carboxyhemoglobin 1.9 % (0-4) Arterial Blood Methemoglobin 1.1 % (0-2) Blood Gas Hemoglobin 7.8 G/DL (12.0-16.0) Oxygen Delivery Device VENTILATOR Blood Gas Ventilator Setting PRVC 14/600/1.0IT/5+ Blood Gas Inspired Oxygen 40 % Imaging Last Impressions Chest X-Ray 07/10/17 0600 Signed Impressions: Service Date/Time: Monday, July 10, 2017 03:44 - CONCLUSION: 1. Support apparatus in good position. Basilar airspace disease slightly improved on the right since July 09. Felipe Medina MD Lower Extremity Ultrasound 07/06/17 0000 Signed Impressions: Service Date/Time: Thursday, July 06, 2017 13:20 - CONCLUSION: 1. Probable large hematoma in the right calf this measures at least 36 x 5 x 7.6 cm. Please see above discussion. Srikanth Ware MD CT Angiography 06/28/17 1327 Signed Impressions: Service Date/Time: Wednesday, June 28, 2017 15:58 - CONCLUSION: 1. No pulmonary embolus identified. 2. Large right-sided pleural effusion with consolidation of the right lower lobe. Srikanth Ware MD Last 24 hours Impressions Chest X-Ray 07/07/17 0000 Signed Impressions: Service Date/Time: Friday, July 07, 2017 01:22 - CONCLUSION: 1. Right thoracentesis without pneumothorax. Felipe Medina MD Objective Remarks GENERAL:This ia an obese male intubated and sedated but easily arousable SKIN: Warm and dry. HEAD: Normocephalic. EYES: No scleral icterus. No injection or drainage. NECK: Supple, trachea midline. No JVD or lymphadenopathy. Intubated. CARDIOVASCULAR: Regular rate and rhythm without murmurs, gallops, or rubs. RESPIRATORY: Breath sounds equal bilaterally. Mechanical ventilation GASTROINTESTINAL: Abdomen soft, non-tender, nondistended. MUSCULOSKELETAL: status post fasciotomy on the right calf, dressing dry and clean. Right foot edema 1+ Capillary refill brisk right lower extremity. Biphasic dopplerable pulses BACK: Nontender without obvious deformity. NEURO EXAM: Mental Status: The patient is sedated and intubated Cranial Nerves: Pupils are round, reactive to light. No focal deficits. Movement of extremities 4 on command Procedures 07/09-EGD 07/10-colonoscopy A/P Assessment and Plan Neuro: - Neurochecks per ICU protocol - Initiate Precedex in anticipation of CPAP trials and weaning for extubation -As continue propofol and fentanyl infusions - Ativan 1 mg every 4 hours when necessary for agitation Resp: Acute hypoxemic respiratory failure R Pleural effusion - Postoperatively hypoxemic - 07/07 S/P thoracentesis with 2.2 L removed - CPAP trials today with plans for SBT parameters-RSBI 29,FVC 1.2, NIF -31, TV 800, plan extubation - Followed by patient centered care specialist, Dr. Palacios CVS: New onset Atrial Fibrillation - Cardiology following, Dr. Krishnamurthy afib rate controlled - Carvedilol 25 mg BID - EF of 30-35% with global hypokinesia, mild concentric left ventricular hypertrophy, mild mitral valve regurgitation. - Anticoagulation on hold due to possible further surgical procedures - Hold po Lasix. Continue IV 40mg q12 ID/Heme/MSK: Right calf hematoma with compartment syndrome - Status post emergent fasciotomy and debridement - DC Meropenem, clindamycin, vancomycin. Place on Zosyn 4.5 GM IV q6h - Follow up panculture - Transfuse to keep hemoglobin more than 7 07/09- S/P I&D right lower extremity with partial wound closure -Wound VAC output less than 100 cc in the last 24 hours -07/07 Pleural fluid negative GI: - NPO with plans for extubation Endo: - Electrolyte replacement per protocol -Monitor BMP MSK: - PT /OT -Continue evaluation of the right lower extremity DVT GI prophylaxis - Teds SCDs - DVT prophylaxis per orthopedic surgeon, not indicated currently with recent GI bleed - Pepcid Critical Care: This patient remains critically ill with one or more organ systems which are or may become a threat to life. I have spent in excess of 30 minutes discontinuously in the care and management of this patient. This time is exclusive of procedures, and includes, but is not limited to, evaluation of the patient, review of the medical record, discussions with family, consultants, nursing staff, or respiratory therapy, and documentation in the medical record. Physician Mirta Armstrong MD Jul 11, 2017 07:48
[2017-07-11] MEDS: SODIUM CHLOR 0.45% 1000 ML INJ 1,000 ML IV SCH ×3 (08:28→23:31)
[2017-07-11] MEDS: CARVEDILOL 12.5 MG TAB PO SCH ×2 (08:33→22:52)
[2017-07-11] MEDS: FUROSEMIDE 40 MG/4 ML VIAL IV PUSH SCH ×2 (08:33→17:02)
[2017-07-11] MEDS: POTASSIUM CHLORIDE 25 MEQ EFFERVESCENT TAB PO SCH ×2 (08:33→21:00)
[2017-07-11] MEDS: DIGOXIN 0.25 MG TAB PO SCH (08:34)
[2017-07-11] MEDS: DEXMEDETOMIDINE INJ 200 MCG in SODIUM CHLORIDE 0.9% INJ 50 ML IV PRN ×3 (08:34→17:01)
[2017-07-11] MEDS: CHLORHEXIDINE 0.12% (ORAL KIT) 15 ML CUP MT SCH ×2 (08:36→19:24)
[2017-07-11] MEDS: DOCUSATE SODIUM 50 MG/SENNA 8.6 MG TAB PO SCH ×2 (08:59→21:00)
[2017-07-11] MEDS: guaiFENesin E.R. 600 MG TAB PO SCH ×2 (08:59→22:52)
[2017-07-11] MEDS: SODIUM CHLORIDE 0.9% FLUSH 10 ML FLUSH SCH ×2 (09:03→22:52)
--- NOTE | 2017-07-11 13:26 | HHI.GIFU ---
Subjective Remarks Resting in bed becomes slightly agitated when approached, motioning for me to take him out of restraints. Awake on CPAP. Mild diffuse abdominal tenderness. (Roxi Rea) Objective Vitals I&O Vital Signs Date Time Temp Pulse Resp B/P (MAP) Pulse Ox O2 Delivery O2 Flow Rate FiO2 07/11/17 12:32 100 40 07/11/17 09:16 40 07/11/17 09:09 93 40 07/11/17 08:27 114 108/54 07/11/17 08:00 112 07/11/17 08:00 40 07/11/17 08:00 98.8 100 17 96/48 (64) 100 07/11/17 07:00 100 Mechanical Ventilator 2.00 40 07/11/17 06:00 90 07/11/17 04:25 100 40 07/11/17 04:00 98.7 92 14 100/56 (71) 98 07/11/17 04:00 40 07/11/17 04:00 92 07/11/17 02:39 90 106/71 07/11/17 02:00 88 07/11/17 00:00 97.8 98 23 78/61 (67) 98 07/11/17 00:00 40 07/11/17 00:00 98 07/10/17 23:23 97 40 07/10/17 22:00 90 07/10/17 20:30 100 100 07/10/17 20:12 82 91/55 07/10/17 20:00 98.5 88 14 91/55 (67) 100 07/10/17 20:00 40 07/10/17 20:00 88 07/10/17 19:57 100 40 07/10/17 19:00 100 Mechanical Ventilator 40 07/10/17 18:00 105 07/10/17 17:10 100 40 07/10/17 16:00 40 07/10/17 16:00 98 07/10/17 16:00 98.8 89 14 112/83 (93) 100 07/10/17 14:00 96 I/O 07/10/17 07/10/17 07/10/17 07/11/17 07/11/17 07/11/17 07:00 15:00 23:00 07:00 15:00 23:00 Intake Total 6400 ml 100 ml 2300 ml 600 ml 838 ml Output Total 1225 ml 1025 ml 450 ml Balance 5175 ml 100 ml 1275 ml 150 ml 838 ml Intake Oral 0 ml IV Total 2400 ml 100 ml 2300 ml 600 ml 838 ml Tube Irrigant 4000 ml Output Urine Total 375 ml 500 ml 400 ml Stool Total 800 ml 500 ml Drainage Total 50 ml 25 ml 50 ml # Bowel Movements 1 Laboratory Laboratory Tests Test 07/11/17 05:00 White Blood Count 18.2 Red Blood Count 2.79 Hemoglobin 7.9 Hematocrit 24.3 Mean Corpuscular Volume 87.1 Mean Corpuscular Hemoglobin 28.4 Mean Corpuscular Hemoglobin Concent 32.6 Red Cell Distribution Width 17.4 Platelet Count 232 Mean Platelet Volume 9.7 Blood Urea Nitrogen 14 Creatinine 1.47 Random Glucose 152 Calcium Level 8.6 Phosphorus Level 3.5 Magnesium Level 2.4 Sodium Level 136 Potassium Level 3.5 Chloride Level 97 Carbon Dioxide Level 32.5 Anion Gap 7 Estimat Glomerular Filtration Rate 49 Date/Time Source Procedure Growth Status 06/28/17 16:51 Blood Peripheral Aerobic Blood Culture - Final NO GROWTH IN 5 DAYS Complete 06/28/17 16:51 Blood Peripheral Anaerobic Blood Culture - Final NO GROWTH IN 5 DAYS Complete 07/07/17 01:00 Fluid Pleural Fluid Fungal Smear - Final NO FUNGAL ELEMENTS SEEN. Resulted 07/07/17 01:00 Fluid Pleural Fluid Fungal Culture Pending Resulted 07/08/17 15:00 Stool Stool Stool Occult Blood (MARSHAL) - Final HEMOCCULT NEGATIVE Complete 06/28/17 20:03 Urine Clean Catch Legionella Antigen - Final PRESUMPTIVE NEGATIVE FOR LEGIONELLA P... Complete 06/28/17 20:03 Urine Clean Catch Streptococcus pneumoniae Antigen (M - Final PRESUMPTIVE NEGATIVE FOR STREPTOCOCCU... Complete Imaging Last Impressions Chest X-Ray 07/10/17 0600 Signed Impressions: Service Date/Time: Monday, July 10, 2017 03:44 - CONCLUSION: 1. Support apparatus in good position. Basilar airspace disease slightly improved on the right since July 09. Felipe Medina MD Abdomen/Pelvis CT 07/10/17 0000 Signed Impressions: Service Date/Time: Monday, July 10, 2017 20:38 - CONCLUSION: 1. Bilateral pleural effusions and lower lobe consolidation, right greater than left. 2. Distended urinary bladder with smooth margins and no focal opacities within the lumen. 3. No evidence of hydronephrosis. 4. No dilated loops of small bowel. Gas is seen in the lumen of the colon down to the level of the rectum. Linwood Kramer MD Lower Extremity Ultrasound 07/06/17 0000 Signed Impressions: Service Date/Time: Thursday, July 06, 2017 13:20 - CONCLUSION: 1. Probable large hematoma in the right calf this measures at least 36 x 5 x 7.6 cm. Please see above discussion. Srikanth Ware MD CT Angiography 06/28/17 1327 Signed Impressions: Service Date/Time: Wednesday, June 28, 2017 15:58 - CONCLUSION: 1. No pulmonary embolus identified. 2. Large right-sided pleural effusion with consolidation of the right lower lobe. Srikanth Ware MD Physical Exam HEENT: Normocephalic; atraumatic CHEST: Resp. even/unlabored, OETT to CPAP CARDIAC: RRR ABDOMEN: Soft, obese, mildly distended, mild tenderness; bowel sounds are present EXTREMITIES: No clubbing, cyanosis, or edema. SKIN: Normal; no rash; no jaundice. 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 (Roxi Rea [facility]) Assessment and Plan Plan ASSESSMENT - Lower GIB. S/P Incomplete colonoscopy (07/09/17)---> Normal EGD. Incomplete colonoscopy secondary to poor bowel prep. S/P Rpt. Colonoscopy (07/10/17)---> Mass in the hepatic flexure most likely consistent with cancer biopsy was done 3 polyps in the ascending colon removed by snare, Large polyp in the sigmoid removed by snare. Pathology pending. Not currently having active bleeding. - Hepatic flexure mass. Pathology pending. CEA 1.0. CT Abdomen and pelvis with IV contrast (07/10/17)---> Bilateral pleural effusions and lower lobe consolidation, right greater than left, distended urinary bladder with smooth margins and no focal opacities within the lumen, no evidence of hydronephrosis, no dilated loops of small bowel, gas is seen in the lumen of the colon down to the level of the rectum. GS following. - Anemia. EGD/Colonoscopy as above. S/P 4 units PRBC. HH 7.9/24.3. - New onset AF rate controlled, anticoag held for procedures, per CCM, Cardiology following - Acute hypoxemic respiratory failure, right pleural effusion. On CPAP - Right calf hematoma s/p fasciotomy - Hematuria, painful urination - Hematuria resolved. Urology following PLAN - NPO for now - On CPAP, if extubated, okay to start clears, if not extubated, okay to start tf - Await pathology - Monitor HH - Transfuse as necessary - GS following - Supportive care - Further recommendations to follow based on results of above - Patient seen and examined by Dr. Ta and myself and this note is written on his behalf. (Roxi Rea) Plan Patient was seen and examined, agree with above Notes, await pathology result, further planning by surgery (Kash Ta MD) Roxi Rea Jul 11, 2017 13:26 Kash Ta MD Jul 11, 2017 18:07
--- NOTE | 2017-07-11 16:21 | MB ---
cc: TOÑO LOPEZ DATE OF CONSULTATION: 07/11/2017. REASON FOR CONSULTATION: The patient has an hepatic flexure mass. HISTORY OF PRESENT ILLNESS: This is a 62-year-old male who has multiple medical problems. He is currently acutely ill and is intubated and sedated. He was admitted to the hospital on 06/28/2017 with dyspnea and bilateral lower extremity swelling. He was found to have a large pleural effusion on the right side. The patient initially refused thoracentesis. He also developed atrial fibrillation. He had increasing leg pain and swelling. He was found to have hematoma in his right calf. He was emergently taken to the OR and fasciotomy and incision and drainage of the right calf hematoma was performed. The patient's pleural effusion continued to worsen resulting in hypoxia. He was intubated post fasciotomy. He underwent emergent thoracentesis with drainage of 2.2 liters of fluid. He was also intermittently hypotensive. His hemoglobin dropped and he has required packed red blood cell transfusions. He had a large melanotic stool on 07/09/2017. GI was consulted but the colonoscopy was unsuccessful due to poor prep. He also had an upper endoscopy. Again the second attempt for colonoscopy was done on 07/10 and this revealed multiple polyps in the ascending colon as well as a large colonic mass at the hepatic flexure which measured 3-4 cm. The patient has undergone incision and drainage of the right calf again and partial closure of the right wound was also performed. He currently remains acutely ill. He is intubated. He is also hypotensive and is currently on low-dose phenylephrine. C-PAP trial as ongoing. Oncology has been consulted to make further recommendations regarding his colonic mass. PAST MEDICAL HISTORY: 1. Coronary artery disease. 2. Myocardial infarction in 1995. 3. Hypertension. 4. Depression. 5. Anxiety disorder. PAST SURGICAL HISTORY: 1. Tonsillectomy. 2. Fasciotomy and wound VAC placement of left right calf. 3. Upper endoscopy and colonoscopy. FAMILY HISTORY: Unable to be obtained. SOCIAL HISTORY: He is an alcoholic and drinks at least 16 beers per day. This was documented in the electronic medical record. MEDICATIONS: 1. Carvedilol 12.5 p.o. twice a day. 2. Precedex. 3. Protonix injection 40 milligrams IV q. 12 hours. 4. Phenylephrine GTT. 5. Potassium bicarbonate 50 milliequivalents p.o. PRN. 6. Lasix 40 milligrams IV twice a day. 7. Potassium bicarbonate 25 milliequivalents p.o. q. 12 hours. 8. Zosyn IV q. 6 hours. 9. DuoNeb q. 2 hours PRN. 10. Milk of magnesia. 11. Senna. 12. Bisacodyl PRN. 13. Lactulose PRN. 14. Morphine sulfate 2 milligrams IV q. 3 hours PRN. 15. Digoxin 0.25 milligrams p.o. daily. 16. Guaifenesin 600 milligrams p.o. twice a day. 17. Tylenol 650 p.o. q. 4 hours PRN. ALLERGIES: 1. CEFUROXIME. PHYSICAL EXAMINATION: VITAL SIGNS: Blood pressure is 96/48, pulse is in the 100s, temperature is 98.8. The patient is mechanically ventilated. GENERAL: An acutely ill patient. HEAD, EYES, EARS, NOSE, THROAT: The oropharynx is clear. NECK: The neck is supple. No jugular venous distention or bruits. No lymphadenopathy. CHEST: The chest has bilateral coarse sounds. CARDIAC: S1-S2. Tachycardic. ABDOMEN: Distended due to obesity. Bowel sounds are decreased. EXTREMITIES: Edematous. No lymphadenopathy on exam. NEUROLOGIC: The patient is currently sedated and intubated. LABS: WBCs 18.2, hemoglobin 7.9, platelet count 232,000. Sodium 136, potassium 3.5, carbon dioxide 32.5, creatinine 1.47, GFR 49. CEA is 1. IMAGING STUDIES: CT of the chest and abdomen shows bilateral pleural effusions and lower lobe consolidation, right greater than left, distended urinary bladder with smooth margins and no focal opacity, no evidence of hydronephrosis. No dilated loops of small bowel. Gas is seen in the lumen of the colon at the level of the rectum. He had a CT angiogram on 06/28/2017 which did not show any pulmonary embolus. Large right-sided pleural effusion was seen. Chest x-ray on 07/11/2017 shows endotracheal tube in good position. There is bilateral basilar airspace disease and pleural effusions. ASSESSMENT AND PLAN: This is a 62-year-old male who has a history of alcohol abuse who was admitted to the hospital with acute dyspnea and lower extremity swelling. He was found to have a large pleural effusion and new-onset atrial fibrillation. He had right calf swelling with a hematoma which and underwent fasciotomy and drainage. He became anemic and a colonoscopy was performed. He was having GI bleeding. This revealed a colonic mass at the level of the hepatic flexure. 1. Colonic mass at the level of the hepatic flexure. I have reviewed the CTA and the CT of the abdomen and pelvis and there does not appear to be any additional disease. His pleural effusion was negative for malignancy. This patient needs a surgical evaluation for possible colectomy. The patient is currently acutely ill. His current medical issues need to be resolved before proceeding with any surgery or further intervention for any underlying malignancy. 2. Acute anemia from GI bleeding, hemoglobin today 7.9. My recommendation will be to keep hemoglobin greater than 8 in the setting of atrial fibrillation, history of coronary artery disease and myocardial infarction. 3. Acute renal failure with creatinine of 1.47, GFR of 49, likely from acute illness, respiratory failure, hypotension, et cetera. Thank you for allowing me to participate in the care of this patient. I will continue to follow this patient along. MD GRETA Bhatti/DORIS /12:31 PM /4:02 PM
--- NOTE | 2017-07-11 18:00 | HHI.PR ---
Subjective Subjective Notes Patient extubated today Responds periodically to name Objective Vitals/I&O Vital Signs Date Time Temp Pulse Resp B/P (MAP) Pulse Ox O2 Delivery O2 Flow Rate FiO2 07/11/17 17:27 107 119/76 07/11/17 16:00 98.1 30 97 07/11/17 14:39 Nasal Cannula 4.00 07/11/17 12:32 40 Labs Laboratory Tests Test 07/11/17 05:00 White Blood Count 18.2 Red Blood Count 2.79 Hemoglobin 7.9 Hematocrit 24.3 Mean Corpuscular Volume 87.1 Mean Corpuscular Hemoglobin 28.4 Mean Corpuscular Hemoglobin Concent 32.6 Red Cell Distribution Width 17.4 Platelet Count 232 Mean Platelet Volume 9.7 Blood Urea Nitrogen 14 Creatinine 1.47 Random Glucose 152 Calcium Level 8.6 Phosphorus Level 3.5 Magnesium Level 2.4 Sodium Level 136 Potassium Level 3.5 Chloride Level 97 Carbon Dioxide Level 32.5 Anion Gap 7 Estimat Glomerular Filtration Rate 49 Date/Time Source Procedure Growth Status 06/28/17 16:51 Blood Peripheral Aerobic Blood Culture - Final NO GROWTH IN 5 DAYS Complete 06/28/17 16:51 Blood Peripheral Anaerobic Blood Culture - Final NO GROWTH IN 5 DAYS Complete 07/07/17 01:00 Fluid Pleural Fluid Fungal Smear - Final NO FUNGAL ELEMENTS SEEN. Resulted 07/07/17 01:00 Fluid Pleural Fluid Fungal Culture Pending Resulted 07/08/17 15:00 Stool Stool Stool Occult Blood (MARSHAL) - Final HEMOCCULT NEGATIVE Complete 06/28/17 20:03 Urine Clean Catch Legionella Antigen - Final PRESUMPTIVE NEGATIVE FOR LEGIONELLA P... Complete 06/28/17 20:03 Urine Clean Catch Streptococcus pneumoniae Antigen (M - Final PRESUMPTIVE NEGATIVE FOR STREPTOCOCCU... Complete Abdomen: Non-distended, Non-tender A/P Problem List: (1) Pleural effusion ICD Codes: J90 - Pleural effusion, not elsewhere classified Status: Acute (2) Atrial fibrillation with RVR ICD Codes: I48.91 - Unspecified atrial fibrillation Status: Acute (3) Morbid obesity ICD Codes: E66.01 - Morbid (severe) obesity due to excess calories (4) Cardiomyopathy ICD Codes: I42.9 - Cardiomyopathy, unspecified (5) Unspecified psychosis ICD Codes: F29 - Unspecified psychosis not due to a substance or known physiological condition Assessment and Plan RLE compartment syndrome S/P fasciotomies Respiratory failure, resolving Hepatic flexure colonic mass; will need to be addressed after recovery from this illness. No signs of obstruction at this time. Biopsy results pending. I attest that I had a [id number] encounter with the patient on the same day, and personally performed and documented my assessment and findings in the medical record. The following services were provided during this hospital visit: Chart data review, vital sign assessments/reviewing monitor data Review of consultations notes if present. Medication orders/review and/or management Ordering and/or reviewing lab tests Ordering and/or interpreting/reviewing x-rays and/or diagnostic studies Care of the patient and discussion of the patient with the care team Documentation time To help prompt me to consider important information that might be impacting today's encounter and assessment, information from prior notes written by myself or my colleagues may have been "brought forward/copy and pasted" into today's note. Scar Naranjo MD Jul 11, 2017 18:00
[2017-07-11] MEDS: RESP: ALBUTEROL 2.5 MG/IPRATROPIUM 0.5 MG NEB (PRN) INH (21:58)
[2017-07-12] VITALS (13 sets, daily range): BP systolic 116–172; BP diastolic 59–84; PULSE 84–118; RESP 18–26; TEMP 97–99.6; O2SAT 93–100
[2017-07-12] MEDS: MORPHINE SULFATE 4 MG/ML INJ IV PUSH PRN (01:46)
[2017-07-12] MEDS: ALBUMIN HUMAN 25% 25 GM/100 ML BAGP IV SCH ×2 (01:46→13:29)
[2017-07-12] MEDS: PIPERACIL-TAZO 4.5 GM PREMIX 100 ML IV SCH (02:44)
[2017-07-12] MEDS: CHLORHEXIDINE GLUCONATE 2 % 1 PACK (2 CLOTHS) TOP SCH (03:19)
[2017-07-12] MEDS: PANTOPRAZOLE SODIUM 40 MG VIAL IV PUSH SCH ×2 (04:32→15:16)
[2017-07-12] MEDS: LORazepam 2 MG/ML VIAL IV PUSH PRN (04:32)
[2017-07-12 06:12] LABS: BICARBONATE 30.8 MEQ/L (21.0-32.0); POTASSIUM 3.8 MEQ/L (3.5-5.1)
[2017-07-12 06:17] LABS: HEMATOCRIT 22.9 % (39.0-51.0); MEAN CELL VOLUME 87.5 FL (80.0-100.0); MEAN CORPUSCULAR HEMOGLOBIN 28.7 PG (27.0-34.0); MEAN CORPUSCULAR HGB CONC 32.8 % (32.0-36.0); PLATELET COUNT 190 TH/MM3 (150-450); RED BLOOD COUNT 2.62 MIL/MM3 (4.50-5.90); REVIEW FLAG FINAL; WHITE BLOOD COUNT 13.3 TH/MM3 (4.0-11.0)
--- NOTE | 2017-07-12 07:10 | PD.ORT.PN ---
Subjective Subjective Remarks POD 3 s/p I&D right leg doing well. pain controlled. no complaints. Objective Vitals Vital Signs Date Time Temp Pulse Resp B/P (MAP) Pulse Ox O2 Delivery O2 Flow Rate FiO2 07/12/17 06:00 118 07/12/17 04:00 99.6 101 26 157/84 (108) 93 07/12/17 04:00 101 07/12/17 02:00 110 07/12/17 01:51 24 07/12/17 00:00 98.9 100 26 123/59 (80) 99 07/12/17 00:00 100 07/11/17 22:00 116 07/11/17 21:58 92 Nasal Cannula 4.00 07/11/17 21:01 98 Nasal Cannula 4.00 07/11/17 20:00 108 07/11/17 20:00 98.7 108 28 150/85 (106) 96 07/11/17 19:00 97 Nasal Cannula 4.00 07/11/17 18:00 102 07/11/17 17:27 107 119/76 07/11/17 16:00 100 07/11/17 16:00 98.1 100 30 93/56 (68) 97 07/11/17 14:39 100 Nasal Cannula 4.00 07/11/17 14:33 100 Nasal Cannula 4 07/11/17 14:00 105 07/11/17 12:32 100 40 07/11/17 12:00 96 07/11/17 12:00 40 07/11/17 12:00 98.7 98 21 125/78 (94) 100 07/11/17 10:00 100 07/11/17 09:16 Nasal Cannula 40 07/11/17 09:09 93 40 07/11/17 08:27 114 108/54 07/11/17 08:00 112 07/11/17 08:00 40 07/11/17 08:00 98.8 100 17 96/48 (64) 100 I/O 07/11/17 07/11/17 07/11/17 07/12/17 07/12/17 07/12/17 07:00 15:00 23:00 07:00 15:00 23:00 Intake Total 600 ml 1088 ml 1485 ml Output Total 450 ml 650 ml Balance 150 ml 1088 ml 835 ml Intake Oral 0 ml IV Total 600 ml 1088 ml 1485 ml Output Urine Total 400 ml 650 ml Drainage Total 50 ml # Bowel Movements 1 1 Result Diagram: 07/12/1752907/12/17529 Objective Remarks RLE: dressings clean and dry. intact. NVI. +vac with good seal Assessment & Plan Assessment and Plan 1) Right Leg Hematoma with compartment syndrome s/p Fasciotomy with I&D vac application - POD 6 -Second irrigation debridement with partial wound closure and wound VAC application applied POD#3 Maintain wound VAC at all times Plan for vac change at bedside on wednesday will need large vac sponge, 5x9 Xeroform, and Ioband Martir Moreno Jul 12, 2017 07:10
[2017-07-12] MEDS: CHLORHEXIDINE 0.12% (ORAL KIT) 15 ML CUP MT SCH ×2 (08:00→20:00)
[2017-07-12] MEDS: DOCUSATE SODIUM 50 MG/SENNA 8.6 MG TAB PO SCH ×2 (09:00→20:29)
[2017-07-12] MEDS: SODIUM CHLORIDE 0.9% FLUSH 10 ML FLUSH SCH ×2 (09:00→20:29)
--- NOTE | 2017-07-12 09:57 | HHI.CCPN ---
Subjective Remarks/Hospital Course 62-year-old with multiple medical problems. He was initially admitted to the hospital on 06/28/17 with a chief complaint of shortness of breath and swelling of both legs. The CAT scan of the chest revealed large pleural effusion on the right however patient was refusing thoracentesis. He was also diagnosed with a new onset of atrial fibrillation and has been on anticoagulation while in the hospital. He was also complaining of approximately two day history of increasing leg pain and swelling and significant bruising. His pain became unbearable and he was taken emergently to operating room. He underwent fasciotomy incision and drainage of right calf hematoma and postoperatively he was admitted to ICU intubated. His chest x-ray repeat showed significant worsening of pleural effusion, patient was difficult to ventilate with high peak pressures on the ventilator, also his blood pressure showed hemodynamic compromise. The emergent thoracentesis was performed in the ICU with drainage of 2.2 L off fluid. SUBJECTIVE: 07/07/17: Patient remains intubated sedated. On lightening sedation he becomes very agitated FiO2. Chest x-ray post thoracentesis shows significant improvement in right effusion. Intermittently hypotensive not on pressors. s/p Incision and drainage of right calf hematoma, compartment release anterior and lateral compartments right calf, VAC dressing. 07/08/17: No acute events overnight. The patient continues on Precedex infusion currently at 0.4mcgs/kg/hr, plan to wean Precedex off and provide Ativan when necessary for agitation. Hemoglobin notably 7.0 today type and screen ordered for plans for OR wound closure on 07/09/17. The patient continues with symptoms of paranoia, but cooperative this a.m. Plan for swallow study to initiate feed. 07/09: Patient's hemoglobin continued to decline yesterday to 6.4.. The patient was transfused with 2 units RBCs .Yesterday the patient had a large melanotic stool also hematuria. Coagulation studies obtained within normal limits. GI was consulted, plan for colonoscopy today. Overnight the urine has cleared, hematuria resolved. The patient has a condom catheter good urinary output. Patient continues to be wean off phenylephrine. Patient continues to have paranoia, bouts of confusion. 07/10: Yesterday the patient underwent I&D of the right calf and partial closure of the right calf wound, returned to ICU intubated and sedated placed on propofol and fentanyl infusion. The patient also underwent upper endoscopy, an attempted colonoscopy but was unsuccessful secondary to poor prep. The patient received GoLYTELY throughout the night via OGT with plans for repeat colonoscopy today. Hemodynamically the patient continues to be hypotensive, lisinopril placed on hold, carvedilol decreased dosage by half to 12.5 mg. Low- dose phenylephrine infusion continues at 50 mcgs. 07/11: Hemoglobin stable .The patient underwent colonoscopy yesterday afternoon which revealed multiple polyps in the ascending colon as well as one large colonic mass in the hepatic flexure measuring 3-4 cm issues for carcinoma. General surgery and oncology was consulted. CEA lab, colonic biopsy pending. Plan for CPAP trials this a.m. with plans for extubation. 07/12: No acute events overnight. The patient was successfully extubated yesterday afternoon. Plans for OT PT evaluation and out of bed to chair today. The patient currently A. fib beta blockers were being held secondary to hypotension, which has now resolved. Coreg has been reinstituted twice a day along with patient's lisinopril. The patient continues on Lasix 40 mg daily however secondary to hypotension , creatinine increased to 1.47->1.5 today. Psychiatry consulted for competency, and cognitive evaluation. Case management also consulted. Patient's hemoglobin dropped to 7.5 to be transfused with 1 unit packed cells today. Objective Vital Signs Date Time Temp Pulse Resp B/P (MAP) Pulse Ox O2 Delivery O2 Flow Rate FiO2 07/12/17 08:26 94 Nasal Cannula 4.00 07/12/17 06:00 118 07/12/17 04:00 99.6 26 157/84 (108) 07/11/17 12:32 40 Intake and Output 07/12/17 07/12/17 07/13/17 08:00 16:00 00:00 Intake Total 60 ml Output Total 1000 ml Balance -940 ml Result Diagram: 07/12/17 0530 07/12/17 0530 Imaging Last Impressions Chest X-Ray 07/10/17 0600 Signed Impressions: Service Date/Time: Monday, July 10, 2017 03:44 - CONCLUSION: 1. Support apparatus in good position. Basilar airspace disease slightly improved on the right since July 09. Felipe Medina MD Lower Extremity Ultrasound 07/06/17 0000 Signed Impressions: Service Date/Time: Thursday, July 06, 2017 13:20 - CONCLUSION: 1. Probable large hematoma in the right calf this measures at least 36 x 5 x 7.6 cm. Please see above discussion. Srikanth Ware MD CT Angiography 06/28/17 1327 Signed Impressions: Service Date/Time: Wednesday, June 28, 2017 15:58 - CONCLUSION: 1. No pulmonary embolus identified. 2. Large right-sided pleural effusion with consolidation of the right lower lobe. Srikanth Ware MD Last 24 hours Impressions Chest X-Ray 07/07/17 0000 Signed Impressions: Service Date/Time: Friday, July 07, 2017 01:22 - CONCLUSION: 1. Right thoracentesis without pneumothorax. Felipe Medina MD Objective Remarks GENERAL:This ia an obese male intubated and sedated but easily arousable SKIN: Warm and dry. HEAD: Normocephalic. EYES: No scleral icterus. No injection or drainage. NECK: Supple, trachea midline. No JVD or lymphadenopathy. Intubated. CARDIOVASCULAR: Regular rate and rhythm without murmurs, gallops, or rubs. RESPIRATORY: Breath sounds equal bilaterally. Mechanical ventilation GASTROINTESTINAL: Abdomen soft, non-tender, nondistended. MUSCULOSKELETAL: status post fasciotomy on the right calf, dressing dry and clean. Right foot edema 1+ Capillary refill brisk right lower extremity. Biphasic dopplerable pulses BACK: Nontender without obvious deformity. NEURO EXAM: Mental Status: The patient is sedated and intubated Cranial Nerves: Pupils are round, reactive to light. No focal deficits. Movement of extremities 4 on command Procedures 07/09-EGD 07/10-colonoscopy A/P Assessment and Plan Neuro: - Neurochecks per ICU protocol - Psychiatry consult to assess competency - Ativan 1 mg every 4 hours when necessary for agitation Resp: Acute hypoxemic respiratory failure R Pleural effusion - Postoperatively hypoxemic - 07/07 S/P thoracentesis with 2.2 L removed - s/p extubation 02/08 - Followed by advertising consultant, Dr. Palacios CVS: New onset Atrial Fibrillation - Cardiology following, Dr. Krishnamurthy afib rate controlled - Carvedilol 25 mg BID - EF of 30-35% with global hypokinesia, mild concentric left ventricular hypertrophy, mild mitral valve regurgitation. - Anticoagulation on hold due to possible further surgical procedures - Hold po Lasix. Continue IV 40mg q12 ID/Heme/MSK: Right calf hematoma with compartment syndrome - Status post emergent fasciotomy and debridement - DC Meropenem, clindamycin, vancomycin. Place on Zosyn 4.5 GM IV q6h - Follow up panculture - Transfuse to keep hemoglobin more than 7 07/09- S/P I&D right lower extremity with partial wound closure -Wound VAC output less than 100 cc in the last 24 hours -07/07 Pleural fluid negative -07/12 type and screen, transfuse 1 unit packed cells, Hgb 7.5 -Hematology- oncology consulted- for possible carcinoma Dr. Bryon Rivers GI: - Begin Clear liquid diet post extubation, advance as tolerated -Bowel regimen -Follow-up general surgery recommendations -Follow GI recommendations : NAZIA - Creatinine elevated 1.47->1.5 today, secondary to episodes of hypotension -Monitor BMP Endo: - Electrolyte replacement per protocol -Monitor BMP MSK: - PT /OT evaluation -Continue evaluation of the right lower extremity S/P I&D and partial wound closure with wound VAC DVT GI prophylaxis - Teds SCDs - Begin subcutaneous heparin BID - Pepcid Critical Care: Level 3 Physician Mirta Armstrong MD Jul 12, 2017 09:57
[2017-07-12] MEDS: FUROSEMIDE 40 MG/4 ML VIAL IV PUSH SCH ×2 (09:58→18:00)
[2017-07-12] MEDS: DIGOXIN 0.25 MG TAB PO SCH (09:58)
[2017-07-12] MEDS: POTASSIUM CHLORIDE 25 MEQ EFFERVESCENT TAB PO SCH ×2 (09:58→20:30)
[2017-07-12] MEDS: guaiFENesin E.R. 600 MG TAB PO SCH ×2 (09:59→20:30)
[2017-07-12] MEDS: CARVEDILOL 12.5 MG TAB PO SCH ×2 (10:00→20:30)
[2017-07-12] MEDS: HEPARIN SODIUM - SQ 10,000 UNITS/ML VIAL SQ SCH ×2 (11:40→20:30)
--- NOTE | 2017-07-12 12:53 | HHI.GIFU ---
Subjective Remarks Resting in bed. He has been extubated. He complains of diffuse abdominal pain , but seems to be more tender in mid abdominal area. (Roxi Rea) Objective Vitals I&O Vital Signs Date Time Temp Pulse Resp B/P (MAP) Pulse Ox O2 Delivery O2 Flow Rate FiO2 07/12/17 08:26 94 Nasal Cannula 4.00 07/12/17 07:00 94 Nasal Cannula 4.00 07/12/17 06:00 118 07/12/17 04:00 99.6 101 26 157/84 (108) 93 07/12/17 04:00 101 07/12/17 02:00 110 07/12/17 01:51 24 07/12/17 00:00 98.9 100 26 123/59 (80) 99 07/12/17 00:00 100 07/11/17 22:00 116 07/11/17 21:58 92 Nasal Cannula 4.00 07/11/17 21:01 98 Nasal Cannula 4.00 07/11/17 20:00 108 07/11/17 20:00 98.7 108 28 150/85 (106) 96 07/11/17 19:00 97 Nasal Cannula 4.00 07/11/17 18:00 102 07/11/17 17:27 107 119/76 07/11/17 16:00 100 07/11/17 16:00 98.1 100 30 93/56 (68) 97 07/11/17 14:39 100 Nasal Cannula 4.00 07/11/17 14:33 100 Nasal Cannula 4 07/11/17 14:00 105 I/O 07/11/17 07/11/17 07/11/17 07/12/17 07/12/17 07/12/17 07:00 15:00 23:00 07:00 15:00 23:00 Intake Total 600 ml 1088 ml 1485 ml 60 ml Output Total 450 ml 650 ml 1000 ml Balance 150 ml 1088 ml 835 ml -940 ml Intake Oral 0 ml 60 ml IV Total 600 ml 1088 ml 1485 ml Output Urine Total 400 ml 650 ml 1000 ml Drainage Total 50 ml 0 ml # Voids 1 # Bowel Movements 1 1 3 Laboratory Laboratory Tests Test 07/12/17 05:30 White Blood Count 13.3 Red Blood Count 2.62 Hemoglobin 7.5 Hematocrit 22.9 Mean Corpuscular Volume 87.5 Mean Corpuscular Hemoglobin 28.7 Mean Corpuscular Hemoglobin Concent 32.8 Red Cell Distribution Width 18.0 Platelet Count 190 Mean Platelet Volume 9.7 Blood Urea Nitrogen 16 Creatinine 1.59 Random Glucose 94 Calcium Level 8.7 Sodium Level 138 Potassium Level 3.8 Chloride Level 100 Carbon Dioxide Level 30.8 Anion Gap 7 Estimat Glomerular Filtration Rate 44 Date/Time Source Procedure Growth Status 06/28/17 16:51 Blood Peripheral Aerobic Blood Culture - Final NO GROWTH IN 5 DAYS Complete 06/28/17 16:51 Blood Peripheral Anaerobic Blood Culture - Final NO GROWTH IN 5 DAYS Complete 07/07/17 01:00 Fluid Pleural Fluid Fungal Smear - Final NO FUNGAL ELEMENTS SEEN. Resulted 07/07/17 01:00 Fluid Pleural Fluid Fungal Culture Pending Resulted 07/08/17 15:00 Stool Stool Stool Occult Blood (MARSHAL) - Final HEMOCCULT NEGATIVE Complete 06/28/17 20:03 Urine Clean Catch Legionella Antigen - Final PRESUMPTIVE NEGATIVE FOR LEGIONELLA P... Complete 06/28/17 20:03 Urine Clean Catch Streptococcus pneumoniae Antigen (M - Final PRESUMPTIVE NEGATIVE FOR STREPTOCOCCU... Complete Imaging Last Impressions Chest X-Ray 07/11/17 0600 Signed Impressions: Service Date/Time: Tuesday, July 11, 2017 03:29 - CONCLUSION: 1. Supe apparatus unchanged. Stable basilar airspace disease and pleural effusions. Felipe Medina MD Abdomen/Pelvis CT 07/10/17 0000 Signed Impressions: Service Date/Time: Monday, July 10, 2017 20:38 - CONCLUSION: 1. Bilateral pleural effusions and lower lobe consolidation, right greater than left. 2. Distended urinary bladder with smooth margins and no focal opacities within the lumen. 3. No evidence of hydronephrosis. 4. No dilated loops of small bowel. Gas is seen in the lumen of the colon down to the level of the rectum. Linwood Kramer MD Lower Extremity Ultrasound 07/06/17 0000 Signed Impressions: Service Date/Time: Thursday, July 06, 2017 13:20 - CONCLUSION: 1. Probable large hematoma in the right calf this measures at least 36 x 5 x 7.6 cm. Please see above discussion. Srikanth Ware MD CT Angiography 06/28/17 1327 Signed Impressions: Service Date/Time: Wednesday, June 28, 2017 15:58 - CONCLUSION: 1. No pulmonary embolus identified. 2. Large right-sided pleural effusion with consolidation of the right lower lobe. Srikanth Ware MD Physical Exam HEENT: Normocephalic; atraumatic CHEST: Resp. even/unlabored, diminished CARDIAC: RRR ABDOMEN: Soft, obese, mildly distended, mild diffuse tenderness, more so in mid abdominal area; bowel sounds are present EXTREMITIES: Gen. edema. Drsg rle SKIN: Normal; no rash; no jaundice. VISUAL ARTS TEACHER: Lethargic, oriented to place and person (Roxi Rea) Assessment and Plan Physician Comments ASSESSMENT - Lower GIB. S/P Incomplete colonoscopy (07/09/17)---> Normal EGD. Incomplete colonoscopy secondary to poor bowel prep. S/P Rpt. Colonoscopy (07/10/17)---> Mass in the hepatic flexure most likely consistent with cancer biopsy was done 3 polyps in the ascending colon removed by snare, Large polyp in the sigmoid removed by snare. Pathology pending. Not currently having active bleeding. S/P 4 units of PRBC. HH this am was 7.5/22.9. - Hepatic flexure mass. Pathology pending. CEA 1.0. CT Abdomen and pelvis with IV contrast (07/10/17)---> Bilateral pleural effusions and lower lobe consolidation, right greater than left, distended urinary bladder with smooth margins and no focal opacities within the lumen, no evidence of hydronephrosis, no dilated loops of small bowel, gas is seen in the lumen of the colon down to the level of the rectum. Most consistent with cancer. Pathology pending, GS following. - Anemia. EGD/Colonoscopy as above. S/P 4 units PRBC. 7.5/22.9. - New onset AF rate controlled, anticoag held for procedures, per CCM, Cardiology following - Acute hypoxemic respiratory failure, right pleural effusion. Pt was extubated. Diminished bases. - Right calf hematoma, s/p fasciotomy. Drsg d/i, ortho following. - Hematuria, painful urination - Hematuria resolved. Urology following PLAN - Full liquids, advance as tolerated. - Await pathology - Monitor HH - Transfuse as necessary - GS following - Supportive care - Further recommendations to follow based on results of above - Patient seen and examined by Dr. Koch and myself and this note is written on her behalf. (Roxi Rea) Roxi Rea Jul 12, 2017 12:53 Reyna Koch MD Jul 12, 2017 18:30
--- NOTE | 2017-07-12 16:53 | HHI.PR ---
Subjective Subjective Notes Resting in bed Not making much sense Able to answer a few questions appropriately KATHY Corrales at bedside Objective Vitals/I&O Vital Signs Date Time Temp Pulse Resp B/P (MAP) Pulse Ox O2 Delivery O2 Flow Rate FiO2 07/12/17 15:06 97.8 107 26 147/74 98 07/12/17 08:26 Nasal Cannula 4.00 07/11/17 12:32 40 Labs Laboratory Tests Test 07/12/17 05:30 White Blood Count 13.3 Red Blood Count 2.62 Hemoglobin 7.5 Hematocrit 22.9 Mean Corpuscular Volume 87.5 Mean Corpuscular Hemoglobin 28.7 Mean Corpuscular Hemoglobin Concent 32.8 Red Cell Distribution Width 18.0 Platelet Count 190 Mean Platelet Volume 9.7 Blood Urea Nitrogen 16 Creatinine 1.59 Random Glucose 94 Calcium Level 8.7 Sodium Level 138 Potassium Level 3.8 Chloride Level 100 Carbon Dioxide Level 30.8 Anion Gap 7 Estimat Glomerular Filtration Rate 44 Date/Time Source Procedure Growth Status 06/28/17 16:51 Blood Peripheral Aerobic Blood Culture - Final NO GROWTH IN 5 DAYS Complete 06/28/17 16:51 Blood Peripheral Anaerobic Blood Culture - Final NO GROWTH IN 5 DAYS Complete 07/07/17 01:00 Fluid Pleural Fluid Fungal Smear - Final NO FUNGAL ELEMENTS SEEN. Resulted 07/07/17 01:00 Fluid Pleural Fluid Fungal Culture Pending Resulted 07/08/17 15:00 Stool Stool Stool Occult Blood (MARSHAL) - Final HEMOCCULT NEGATIVE Complete 06/28/17 20:03 Urine Clean Catch Legionella Antigen - Final PRESUMPTIVE NEGATIVE FOR LEGIONELLA P... Complete 06/28/17 20:03 Urine Clean Catch Streptococcus pneumoniae Antigen (M - Final PRESUMPTIVE NEGATIVE FOR STREPTOCOCCU... Complete Cardiovascular: Regular Lungs: Clear Abdomen: Other (obese abdomen; soft ) Extremities: Other (LEFT leg with kvng and connected to Wound Vac ) A/P Problem List: (1) Pleural effusion ICD Codes: J90 - Pleural effusion, not elsewhere classified Status: Acute (2) Atrial fibrillation with RVR ICD Codes: I48.91 - Unspecified atrial fibrillation Status: Acute (3) Morbid obesity ICD Codes: E66.01 - Morbid (severe) obesity due to excess calories (4) Cardiomyopathy ICD Codes: I42.9 - Cardiomyopathy, unspecified (5) Unspecified psychosis ICD Codes: F29 - Unspecified psychosis not due to a substance or known physiological condition Assessment and Plan 62 year old male with multiple medical problems; s/p respiratory failure requiring intubated; s/p fasciotomy of LEFT leg; concern for colon mass in the hepatic flexure (concern for cancer) -Continue clear liquids -Await pathology -Will make a plan once pathology available - consult for location and contact information for next of kin Attending Statement patient seen at bedside poor historian will need to find family await bx results Attestation The exam, history, and the medical decision-making described in the above note were completed with the assistance of the mid-level provider. I reviewed and agree with the findings presented. I attest that I had a [id number] encounter with the patient on the same day, and personally performed and documented my assessment and findings in the medical record. Krysten Glynn Jul 12, 2017 16:53 Zeb Campuzano MD Jul 16, 2017 15:35
--- NOTE | 2017-07-12 17:25 | PD.CARD.PN ---
Subjective Subjective Remarks No CP or SOB, somnolent, rate better controlled Objective Medications Administered Medications Medications (Trade) Dose Ordered Sig/Zeinab Route PRN Reason Start Time Stop Time Status Last Admin Dose Admin Senna/Docusate Sodium (Mehnaz-Colace) 1 tab BID PO 06/28/17 21:00 07/09/17 22:12 Guaifenesin (Mucinex Er) 600 mg BID PO 06/28/17 21:00 07/12/17 09:59 Albumin Human (Albumin 25% Inj) 25 gm Q12H IV 07/02/17 14:00 07/12/17 13:29 Digoxin (Lanoxin) 0.25 mg DAILY PO 07/02/17 16:45 07/12/17 09:58 Lisinopril (Prinivil) 10 mg DAILY PO 07/05/17 09:00 Future hold 07/09/17 09:39 Morphine Sulfate (Morphine Inj) 2 mg Q3H PRN IV PUSH pain 1-10 07/06/17 20:00 07/12/17 01:46 Sodium Chloride (NS Flush) 2 ml BID .XX 07/06/17 21:00 07/11/17 22:52 Albuterol/ Ipratropium (Duoneb Neb) 1 ampule Q2HR NEB PRN INH WHEEZING 07/06/17 21:00 07/11/17 21:58 Chlorhexidine Gluconate (Chlorhexidine 2% Cloth) Taper DAILY@04 TOP 07/07/17 04:00 07/03/18 03:59 07/08/17 05:31 Furosemide (Lasix Inj) 40 mg BID@,18 IV PUSH 07/07/17 09:00 07/12/17 09:58 Potassium Bicarb/ Potassium Chloride (K-Lyte Cl Eff) 25 meq Q12HR PO 07/07/17 09:00 07/12/17 09:58 Potassium Chloride 100 ml @ 25 mls/hr UNSCH PRN IV ELECTROLYTE REPLACEMENT 07/07/17 18:30 07/11/17 07:40 Potassium Phosphate 30 mmol/ Sodium Chloride 260 ml @ 43.333 mls/ hr UNSCH PRN IV ELECTROLYTE REPLACEMENT 07/07/17 18:30 07/07/17 18:55 Lorazepam (Ativan Inj) 1 mg Q4H PRN IV PUSH AGITATION AND/OR HALLUCINATION 07/08/17 09:15 07/12/17 04:32 Pantoprazole Sodium (Protonix Inj) 40 mg Q12H IV PUSH 07/08/17 16:00 07/12/17 15:16 Chlorhexidine Gluconate (Peridex 0.12% Liq) 15 ml BID@08,20 MT 07/09/17 20:00 07/11/17 08:36 Carvedilol (Coreg) 25 mg Q12HR PO 07/12/17 10:00 07/12/17 10:00 Heparin Sodium (Porcine) (Heparin Inj) 5,000 units Q12HR SQ 07/12/17 10:00 07/12/17 11:40 Vital Signs / I&O Vital Signs Date Time Temp Pulse Resp B/P (MAP) Pulse Ox O2 Delivery O2 Flow Rate FiO2 07/12/17 15:06 97.8 107 26 147/74 98 07/12/17 08:26 94 Nasal Cannula 4.00 07/12/17 07:00 94 Nasal Cannula 4.00 07/12/17 06:00 118 07/12/17 04:00 99.6 101 26 157/84 (108) 93 07/12/17 04:00 101 07/12/17 02:00 110 07/12/17 01:51 24 07/12/17 00:00 98.9 100 26 123/59 (80) 99 07/12/17 00:00 100 07/11/17 22:00 116 07/11/17 21:58 92 Nasal Cannula 4.00 07/11/17 21:01 98 Nasal Cannula 4.00 07/11/17 20:00 108 07/11/17 20:00 98.7 108 28 150/85 (106) 96 07/11/17 19:00 97 Nasal Cannula 4.00 07/11/17 18:00 102 07/11/17 17:27 107 119/76 I/O 07/11/17 07/11/17 07/11/17 07/12/17 07/12/17 07/12/17 07:00 15:00 23:00 07:00 15:00 23:00 Intake Total 600 ml 1088 ml 1485 ml 60 ml Output Total 450 ml 650 ml 1000 ml Balance 150 ml 1088 ml 835 ml -940 ml Intake Oral 0 ml 60 ml IV Total 600 ml 1088 ml 1485 ml Output Urine Total 400 ml 650 ml 1000 ml Drainage Total 50 ml 0 ml # Voids 1 # Bowel Movements 1 1 3 Physical Exam GENERAL: In NAD. SKIN: Warm and dry. HEAD: Normocephalic. EYES: No scleral icterus. No injection or drainage. NECK: Supple, trachea midline. No JVD or lymphadenopathy. CARDIOVASCULAR: Irreg, without murmurs, gallops, or rubs. RESPIRATORY: Breath sounds equal bilaterally. Few rhonchi, distant BS GASTROINTESTINAL: Abdomen soft, non-tender, nondistended. MUSCULOSKELETAL: No cyanosis, RLE dressed Laboratory Laboratory Tests Test 07/12/17 05:30 White Blood Count 13.3 TH/MM3 Red Blood Count 2.62 MIL/MM3 Hemoglobin 7.5 GM/DL Hematocrit 22.9 % Mean Corpuscular Volume 87.5 FL Mean Corpuscular Hemoglobin 28.7 PG Mean Corpuscular Hemoglobin Concent 32.8 % Red Cell Distribution Width 18.0 % Platelet Count 190 TH/MM3 Mean Platelet Volume 9.7 FL Blood Urea Nitrogen 16 MG/DL Creatinine 1.59 MG/DL Random Glucose 94 MG/DL Calcium Level 8.7 MG/DL Sodium Level 138 MEQ/L Potassium Level 3.8 MEQ/L Chloride Level 100 MEQ/L Carbon Dioxide Level 30.8 MEQ/L Anion Gap 7 MEQ/L Estimat Glomerular Filtration Rate 44 ML/MIN Assessment and Plan Problem List: (1) Morbid obesity ICD Codes: E66.01 - Morbid (severe) obesity due to excess calories (2) Atrial fibrillation with RVR ICD Codes: I48.91 - Unspecified atrial fibrillation Status: Acute (3) Cardiomyopathy ICD Codes: I42.9 - Cardiomyopathy, unspecified (4) Pleural effusion ICD Codes: J90 - Pleural effusion, not elsewhere classified Status: Acute (5) ETOH abuse ICD Codes: F10.10 - Alcohol abuse, uncomplicated Assessment and Plan Tolerated surgery well. Rate better controlled, continue rate control of AF. Echo with moderate LV dysfunction. Continue and tx for CHF. Increase activity. Poor candidate for full anticoagulation due to noncompliance. Social service evaluation for placement after discharge in progress (lives alone). Blair Krishnamurthy MD Jul 12, 2017 17:25
--- NOTE | 2017-07-12 18:19 | HHI.PR ---
Subjective Remarks 62 YO Obese WM mild SOB " My body is poisoned, nothing wrong with my Heart" Echo EF 30-35 % RVSP 41 Was extubated On NC, no distress Objective Vital Signs Vital Signs Date Time Temp Pulse Resp B/P (MAP) Pulse Ox O2 Delivery O2 Flow Rate FiO2 07/12/17 15:06 97.8 107 26 147/74 98 07/12/17 08:26 94 Nasal Cannula 4.00 07/12/17 07:00 94 Nasal Cannula 4.00 07/12/17 06:00 118 07/12/17 04:00 99.6 101 26 157/84 (108) 93 07/12/17 04:00 101 07/12/17 02:00 110 07/12/17 01:51 24 07/12/17 00:00 98.9 100 26 123/59 (80) 99 07/12/17 00:00 100 07/11/17 22:00 116 07/11/17 21:58 92 Nasal Cannula 4.00 07/11/17 21:01 98 Nasal Cannula 4.00 07/11/17 20:00 108 07/11/17 20:00 98.7 108 28 150/85 (106) 96 07/11/17 19:00 97 Nasal Cannula 4.00 I/O 07/11/17 07/11/17 07/11/17 07/12/17 07/12/17 07/12/17 07:00 15:00 23:00 07:00 15:00 23:00 Intake Total 600 ml 1088 ml 1485 ml 60 ml Output Total 450 ml 650 ml 1000 ml Balance 150 ml 1088 ml 835 ml -940 ml Intake Oral 0 ml 60 ml IV Total 600 ml 1088 ml 1485 ml Output Urine Total 400 ml 650 ml 1000 ml Drainage Total 50 ml 0 ml # Voids 1 # Bowel Movements 1 1 3 Result Diagram: 07/12/1752907/12/17529 Objective Remarks GENERAL: Obese Wm mild sob SKIN: Warm and dry. HEAD: Normocephalic. EYES: No scleral icterus. No injection or drainage. NECK: Supple, trachea midline. No JVD or lymphadenopathy. CARDIOVASCULAR: Regular rate and rhythm without murmurs, gallops, or rubs. RESPIRATORY: Breath sounds equal bilaterally. No accessory muscle use. Decreased BS at bases GASTROINTESTINAL: Abdomen soft, non-tender, nondistended. MUSCULOSKELETAL: No cyanosis, ++ edema. BACK: Nontender without obvious deformity. No CVA tenderness. A/P Assessment and Plan Bilat Pleural effusion CHF CMP AF PHTN ETOH use S/P Compartment release rright calf. PLAN: Aerosol nebs prn SQ Heparin Supplement 02 Monitor H/H Lacho Palacios MD Jul 12, 2017 18:19
--- NOTE | 2017-07-12 22:06 | PD.ONC.PN ---
Subjective Subjective Remarks extubated today lethargic Objective Data Date Time Temp Pulse Resp B/P (MAP) Pulse Ox O2 Delivery O2 Flow Rate FiO2 07/12/17 20:46 95 Nasal Cannula 4.00 07/12/17 20:00 96 07/12/17 19:00 97 Nasal Cannula 5.00 07/12/17 16:00 98.0 100 143/68 (93) 07/12/17 15:06 97.8 107 26 147/74 98 07/12/17 12:00 84 07/12/17 12:00 98.0 96 116/66 (83) 07/12/17 10:00 112 07/12/17 08:26 94 Nasal Cannula 4.00 07/12/17 08:00 112 07/12/17 08:00 97.0 114 18 144/82 (102) 100 07/12/17 07:00 94 Nasal Cannula 4.00 07/12/17 06:00 118 07/12/17 04:00 99.6 101 26 157/84 (108) 93 07/12/17 04:00 101 07/12/17 02:00 110 07/12/17 01:51 24 07/12/17 00:00 98.9 100 26 123/59 (80) 99 07/12/17 00:00 100 07/12/17 07/12/17 07/12/17 07:00 15:00 23:00 Intake Total 60 ml Output Total 1000 ml Balance -940 ml Result Diagram: 07/12/17 0530 07/12/17 0530 Laboratory Results Laboratory Tests Test 07/12/17 05:30 White Blood Count 13.3 TH/MM3 Red Blood Count 2.62 MIL/MM3 Hemoglobin 7.5 GM/DL Hematocrit 22.9 % Mean Corpuscular Volume 87.5 FL Mean Corpuscular Hemoglobin 28.7 PG Mean Corpuscular Hemoglobin Concent 32.8 % Red Cell Distribution Width 18.0 % Platelet Count 190 TH/MM3 Mean Platelet Volume 9.7 FL Blood Urea Nitrogen 16 MG/DL Creatinine 1.59 MG/DL Random Glucose 94 MG/DL Calcium Level 8.7 MG/DL Sodium Level 138 MEQ/L Potassium Level 3.8 MEQ/L Chloride Level 100 MEQ/L Carbon Dioxide Level 30.8 MEQ/L Anion Gap 7 MEQ/L Estimat Glomerular Filtration Rate 44 ML/MIN Administered Medications Medications (Trade) Dose Ordered Sig/Zeinab Route PRN Reason Start Time Stop Time Status Last Admin Dose Admin Senna/Docusate Sodium (Mehnaz-Colace) 1 tab BID PO 06/28/17 21:00 07/09/17 22:12 Guaifenesin (Mucinex Er) 600 mg BID PO 06/28/17 21:00 07/12/17 20:30 Albumin Human (Albumin 25% Inj) 25 gm Q12H IV 07/02/17 14:00 07/12/17 13:29 Digoxin (Lanoxin) 0.25 mg DAILY PO 07/02/17 16:45 07/12/17 09:58 Lisinopril (Prinivil) 10 mg DAILY PO 07/05/17 09:00 Future hold 07/09/17 09:39 Morphine Sulfate (Morphine Inj) 2 mg Q3H PRN IV PUSH pain 1-10 07/06/17 20:00 07/12/17 01:46 Sodium Chloride (NS Flush) 2 ml BID .XX 07/06/17 21:00 07/12/17 20:29 Albuterol/ Ipratropium (Duoneb Neb) 1 ampule Q2HR NEB PRN INH WHEEZING 07/06/17 21:00 07/11/17 21:58 Chlorhexidine Gluconate (Chlorhexidine 2% Cloth) Taper DAILY@04 TOP 07/07/17 04:00 07/03/18 03:59 07/08/17 05:31 Furosemide (Lasix Inj) 40 mg BID@09,18 IV PUSH 07/07/17 09:00 07/12/17 18:00 Potassium Bicarb/ Potassium Chloride (K-Lyte Cl Eff) 25 meq Q12HR PO 07/07/17 09:00 07/12/17 20:30 Potassium Chloride 100 ml @ 25 mls/hr UNSCH PRN IV ELECTROLYTE REPLACEMENT 07/07/17 18:30 07/11/17 07:40 Potassium Phosphate 30 mmol/ Sodium Chloride 260 ml @ 43.333 mls/ hr UNSCH PRN IV ELECTROLYTE REPLACEMENT 07/07/17 18:30 07/07/17 18:55 Lorazepam (Ativan Inj) 1 mg Q4H PRN IV PUSH AGITATION AND/OR HALLUCINATION 07/08/17 09:15 07/12/17 04:32 Pantoprazole Sodium (Protonix Inj) 40 mg Q12H IV PUSH 07/08/17 16:00 07/12/17 15:16 Chlorhexidine Gluconate (Peridex 0.12% Liq) 15 ml BID@08,20 MT 07/09/17 20:00 07/11/17 08:36 Carvedilol (Coreg) 25 mg Q12HR PO 07/12/17 10:00 07/12/17 20:30 Heparin Sodium (Porcine) (Heparin Inj) 5,000 units Q12HR SQ 07/12/17 10:00 07/12/17 20:30 Objective Remarks GENERAL: acutely ill, s/p extubation SKIN: Warm and dry. LYMPHATIC: No adenopathy. CARDIOVASCULAR: Regular rate and rhythm without murmurs. RESPIRATORY: Breath sounds equal bilaterally. No accessory muscle use. GASTROINTESTINAL: Abdomen soft, non-tender, nondistended. EXTREMITIES: No cyanosis, or edema. . Assessment/Plan Problem List: (1) Respiratory distress ICD Codes: R06.00 - Dyspnea, unspecified (2) Colonic mass ICD Codes: K63.9 - Disease of intestine, unspecified (3) Pleural effusion ICD Codes: J90 - Pleural effusion, not elsewhere classified Status: Acute (4) Atrial fibrillation with RVR ICD Codes: I48.91 - Unspecified atrial fibrillation Status: Acute (5) Morbid obesity ICD Codes: E66.01 - Morbid (severe) obesity due to excess calories Assessment 62-year-old male who has a history of alcohol abuse who was admitted to the hospital with acute dyspnea and lower extremity swelling. He was found to have a large pleural effusion and new-onset atrial fibrillation. He had right calf swelling with a hematoma which and underwent fasciotomy and drainage. He became anemic and a colonoscopy was performed. He was having GI bleeding. This revealed a colonic mass at the level of the hepatic flexure. 1. Colonic mass at the level of the hepatic flexure. - Path penning - further recs based on biopsy 2. Acute anemia from GI bleeding, hemoglobin today 7.5. keep hemoglobin greater than 8 in the setting of atrial fibrillation, history of coronary artery disease and myocardial infarction. - transfuse 1 unit of prbc today 3. Acute renal failure with creatinine of 1.59, likely from acute illness, respiratory failure, hypotension, et cetera. Bryon Rivers MD Jul 12, 2017 22:06
[2017-07-13] VITALS (12 sets, daily range): BP systolic 110–171; BP diastolic 60–88; PULSE 82–112; RESP 19–29; TEMP 96.4–98.4; O2SAT 92–100
[2017-07-13] MEDS: ALBUMIN HUMAN 25% 25 GM/100 ML BAGP IV SCH ×2 (03:22→14:52)
[2017-07-13] MEDS: PANTOPRAZOLE SODIUM 40 MG VIAL IV PUSH SCH ×2 (03:24→22:18)
[2017-07-13] MEDS: CHLORHEXIDINE GLUCONATE 2 % 1 PACK (2 CLOTHS) TOP SCH (03:24)
[2017-07-13 03:54] LABS: AUTOMATED NEUTROPHIL # 13.5 TH/MM3 (1.8-7.7); BASOPHIL # 0.1 TH/MM3 (0-0.2); BASOPHIL % 0.6 % (0.0-2.0); EOSINOPHIL # 0.1 TH/MM3 (0-0.4); EOSINOPHIL % 0.4 % (0.0-4.0); HEMATOCRIT 27.2 % (39.0-51.0); LYMPH % 3.6 % (9.0-44.0); LYMPHOCYTE # 0.6 TH/MM3 (1.0-4.8); MEAN CELL VOLUME 88.7 FL (80.0-100.0); MEAN CORPUSCULAR HEMOGLOBIN 27.7 PG (27.0-34.0); MEAN CORPUSCULAR HGB CONC 31.2 % (32.0-36.0); MONO % 7.9 % (0.0-8.0); NEUT % 87.5 % (16.0-70.0); PLATELET COUNT 235 TH/MM3 (150-450); RED BLOOD COUNT 3.07 MIL/MM3 (4.50-5.90); RED CELL DISTRIBUTION WIDTH 18.4 % (11.6-17.2); WHITE BLOOD COUNT 15.4 TH/MM3 (4.0-11.0)
[2017-07-13 03:56] LABS: HEMO FLAGS AUTO DIFF
[2017-07-13] MEDS: CHLORHEXIDINE 0.12% (ORAL KIT) 15 ML CUP MT SCH ×2 (08:00→20:00)
[2017-07-13 08:27] LABS: BANDS 3 % (0-6); MYELOCYTES 1 % (0-0); NEUTROPHIL # MANUAL DIFF 13.9 TH/MM3 (1.8-7.7); POLYS (SEG NEUTROPHILS) 86 % (16-70); WBC DIFF SAMPLE 100
[2017-07-13 08:28] LABS: PLATELET ESTIMATE SMEAR NORMAL (NORMAL); PLATELET MORPHOLOGY ENLARGED (NORMAL); SCAN/DIFF FINAL DIFF MANUAL
[2017-07-13] MEDS: DOCUSATE SODIUM 50 MG/SENNA 8.6 MG TAB PO SCH ×2 (08:47→21:00)
[2017-07-13] MEDS: SODIUM CHLORIDE 0.9% FLUSH 10 ML FLUSH SCH ×2 (08:47→21:00)
[2017-07-13] MEDS: POTASSIUM CHLORIDE 25 MEQ EFFERVESCENT TAB PO SCH ×2 (09:01→22:19)
[2017-07-13] MEDS: DIGOXIN 0.25 MG TAB PO SCH (09:02)
[2017-07-13] MEDS: LISINOPRIL 10 MG TAB PO SCH (09:03)
[2017-07-13] MEDS: CARVEDILOL 12.5 MG TAB PO SCH ×2 (09:03→22:19)
[2017-07-13] MEDS: HEPARIN SODIUM - SQ 10,000 UNITS/ML VIAL SQ SCH ×2 (09:04→22:19)
[2017-07-13] MEDS: guaiFENesin E.R. 600 MG TAB PO SCH ×2 (09:04→21:00)
[2017-07-13] MEDS: FUROSEMIDE 40 MG/4 ML VIAL IV PUSH SCH ×2 (09:04→22:18)
[2017-07-13] MEDS: RESP: ALBUTEROL 2.5 MG/IPRATROPIUM 0.5 MG NEB (PRN) INH (09:08)
--- NOTE | 2017-07-13 09:57 | HHI.GIFU ---
Subjective Remarks Resting in bed. Would like to try "real food." No n/v. Does have some mild diffuse abdominal discomfort on exam. + BM. Objective Vitals I&O Vital Signs Date Time Temp Pulse Resp B/P (MAP) Pulse Ox O2 Delivery O2 Flow Rate FiO2 07/13/17 09:09 92 Nasal Cannula 4.00 07/13/17 08:00 97.7 112 24 147/85 (105) 95 07/13/17 07:00 97 Nasal Cannula 5.00 07/13/17 06:00 92 07/13/17 04:00 97.7 104 26 171/88 (115) 97 07/13/17 04:00 92 07/13/17 02:00 92 07/13/17 00:00 97 07/13/17 00:00 97.8 90 26 148/80 (102) 96 07/12/17 22:00 96 07/12/17 20:46 95 Nasal Cannula 4.00 07/12/17 20:00 96 07/12/17 20:00 97.6 100 26 172/82 (112) 99 07/12/17 19:00 97 Nasal Cannula 5.00 07/12/17 16:00 98.0 100 143/68 (93) 07/12/17 15:06 97.8 107 26 147/74 98 07/12/17 12:00 84 07/12/17 12:00 98.0 96 116/66 (83) 07/12/17 10:00 112 I/O 07/12/17 07/12/17 07/12/17 07/13/17 07/13/17 07/13/17 07:00 15:00 23:00 07:00 15:00 23:00 Intake Total 60 ml 520 ml 240 ml Output Total 1000 ml 1150 ml Balance -940 ml 520 ml -910 ml Intake Oral 60 ml 240 ml Packed Cells 400 ml Blood Product IV Normal Saline Flush 120 ml Output Urine Total 1000 ml 1100 ml Drainage Total 0 ml 50 ml # Voids 1 # Bowel Movements 3 2 Laboratory Laboratory Tests Test 07/13/17 03:30 White Blood Count 15.4 Red Blood Count 3.07 Hemoglobin 8.5 Hematocrit 27.2 Mean Corpuscular Volume 88.7 Mean Corpuscular Hemoglobin 27.7 Mean Corpuscular Hemoglobin Concent 31.2 Red Cell Distribution Width 18.4 Platelet Count 235 Mean Platelet Volume 9.1 Neutrophils (%) (Auto) 87.5 Lymphocytes (%) (Auto) 3.6 Monocytes (%) (Auto) 7.9 Eosinophils (%) (Auto) 0.4 Basophils (%) (Auto) 0.6 Neutrophils # (Auto) 13.5 Lymphocytes # (Auto) 0.6 Monocytes # (Auto) 1.2 Eosinophils # (Auto) 0.1 Basophils # (Auto) 0.1 CBC Comment AUTO DIFF Differential Total Cells Counted 100 Neutrophils % (Manual) 86 Band Neutrophils % 3 Lymphocytes % 3 Monocytes % 7 Neutrophils # (Manual) 13.9 Myelocytes 1 Differential Comment FINAL DIFF MANUAL Platelet Estimate NORMAL Platelet Morphology Comment ENLARGED Basophilic Stippling FAINT Date/Time Source Procedure Growth Status 06/28/17 16:51 Blood Peripheral Aerobic Blood Culture - Final NO GROWTH IN 5 DAYS Complete 06/28/17 16:51 Blood Peripheral Anaerobic Blood Culture - Final NO GROWTH IN 5 DAYS Complete 07/07/17 01:00 Fluid Pleural Fluid Fungal Smear - Final NO FUNGAL ELEMENTS SEEN. Resulted 07/07/17 01:00 Fluid Pleural Fluid Fungal Culture Pending Resulted 07/08/17 15:00 Stool Stool Stool Occult Blood (MARSHAL) - Final HEMOCCULT NEGATIVE Complete 06/28/17 20:03 Urine Clean Catch Legionella Antigen - Final PRESUMPTIVE NEGATIVE FOR LEGIONELLA P... Complete 06/28/17 20:03 Urine Clean Catch Streptococcus pneumoniae Antigen (M - Final PRESUMPTIVE NEGATIVE FOR STREPTOCOCCU... Complete Imaging Last Impressions Chest X-Ray 07/11/17 0600 Signed Impressions: Service Date/Time: Tuesday, July 11, 2017 03:29 - CONCLUSION: 1. Supe apparatus unchanged. Stable basilar airspace disease and pleural effusions. Felipe Medina MD Abdomen/Pelvis CT 07/10/17 0000 Signed Impressions: Service Date/Time: Monday, July 10, 2017 20:38 - CONCLUSION: 1. Bilateral pleural effusions and lower lobe consolidation, right greater than left. 2. Distended urinary bladder with smooth margins and no focal opacities within the lumen. 3. No evidence of hydronephrosis. 4. No dilated loops of small bowel. Gas is seen in the lumen of the colon down to the level of the rectum. Linwood Kramer MD Lower Extremity Ultrasound 07/06/17 0000 Signed Impressions: Service Date/Time: Thursday, July 06, 2017 13:20 - CONCLUSION: 1. Probable large hematoma in the right calf this measures at least 36 x 5 x 7.6 cm. Please see above discussion. Srikanth Ware MD CT Angiography 06/28/17 1327 Signed Impressions: Service Date/Time: Wednesday, June 28, 2017 15:58 - CONCLUSION: 1. No pulmonary embolus identified. 2. Large right-sided pleural effusion with consolidation of the right lower lobe. Srikanth Ware MD Physical Exam HEENT: Normocephalic; atraumatic CHEST: Resp. even/unlabored, diminished CARDIAC: RRR ABDOMEN: Soft, obese, mildly distended, mild diffuse tenderness, bowel sounds are present EXTREMITIES: Gen. edema. Drsg with wound vac rle SKIN: Normal; no rash; no jaundice. MARITIME PILOT: Lethargic, oriented to place and person Assessment and Plan Plan ASSESSMENT - Lower GIB. S/P Incomplete colonoscopy (07/09/17)---> Normal EGD. Incomplete colonoscopy secondary to poor bowel prep. S/P Rpt. Colonoscopy (07/10/17)---> Mass in the hepatic flexure most likely consistent with cancer biopsy was done 3 polyps in the ascending colon removed by snare, Large polyp in the sigmoid removed by snare. Pathology pending. Not currently having active bleeding. S/P 5 units of PRBC. HH this am was 8.03/06.2. - Hepatic flexure mass. Pathology pending. CEA 1.0. CT Abdomen and pelvis with IV contrast (07/10/17)---> Bilateral pleural effusions and lower lobe consolidation, right greater than left, distended urinary bladder with smooth margins and no focal opacities within the lumen, no evidence of hydronephrosis, no dilated loops of small bowel, gas is seen in the lumen of the colon down to the level of the rectum. Most consistent with cancer. Oncology /GS following, awaiting pathology. - Anemia. EGD/Colonoscopy as above. S/P 5 units PRBC. 8.03/06.2. - New onset AF rate controlled, anticoag held for procedures, per CCM, Cardiology following - Acute hypoxemic respiratory failure, right pleural effusion. Pt was extubated. Diminished bases. - Right calf hematoma, s/p fasciotomy. Drsg d/i with wound vac, ortho following. - Hematuria, painful urination - Hematuria resolved. Urology following PLAN - Heart healthy diet - Await pathology - Monitor HH - Transfuse as necessary - GS following - Oncology following - Supportive care - Further recommendations to follow based on results of above - Patient seen and examined by Dr. Koch and myself and this note is written on her behalf. Roxi Rea Jul 13, 2017 09:57
--- NOTE | 2017-07-13 10:05 | HHI.PR ---
Subjective Subjective Notes Mumbling Objective Vitals/I&O Vital Signs Date Time Temp Pulse Resp B/P (MAP) Pulse Ox O2 Delivery O2 Flow Rate FiO2 07/13/17 09:09 92 Nasal Cannula 4.00 07/13/17 08:00 97.7 112 24 147/85 (105) 07/11/17 12:32 40 Labs Laboratory Tests Test 07/13/17 03:30 White Blood Count 15.4 Red Blood Count 3.07 Hemoglobin 8.5 Hematocrit 27.2 Mean Corpuscular Volume 88.7 Mean Corpuscular Hemoglobin 27.7 Mean Corpuscular Hemoglobin Concent 31.2 Red Cell Distribution Width 18.4 Platelet Count 235 Mean Platelet Volume 9.1 Neutrophils (%) (Auto) 87.5 Lymphocytes (%) (Auto) 3.6 Monocytes (%) (Auto) 7.9 Eosinophils (%) (Auto) 0.4 Basophils (%) (Auto) 0.6 Neutrophils # (Auto) 13.5 Lymphocytes # (Auto) 0.6 Monocytes # (Auto) 1.2 Eosinophils # (Auto) 0.1 Basophils # (Auto) 0.1 CBC Comment AUTO DIFF Differential Total Cells Counted 100 Neutrophils % (Manual) 86 Band Neutrophils % 3 Lymphocytes % 3 Monocytes % 7 Neutrophils # (Manual) 13.9 Myelocytes 1 Differential Comment FINAL DIFF MANUAL Platelet Estimate NORMAL Platelet Morphology Comment ENLARGED Basophilic Stippling FAINT Date/Time Source Procedure Growth Status 06/28/17 16:51 Blood Peripheral Aerobic Blood Culture - Final NO GROWTH IN 5 DAYS Complete 06/28/17 16:51 Blood Peripheral Anaerobic Blood Culture - Final NO GROWTH IN 5 DAYS Complete 07/07/17 01:00 Fluid Pleural Fluid Fungal Smear - Final NO FUNGAL ELEMENTS SEEN. Resulted 07/07/17 01:00 Fluid Pleural Fluid Fungal Culture Pending Resulted 07/08/17 15:00 Stool Stool Stool Occult Blood (MARSHAL) - Final HEMOCCULT NEGATIVE Complete 06/28/17 20:03 Urine Clean Catch Legionella Antigen - Final PRESUMPTIVE NEGATIVE FOR LEGIONELLA P... Complete 06/28/17 20:03 Urine Clean Catch Streptococcus pneumoniae Antigen (M - Final PRESUMPTIVE NEGATIVE FOR STREPTOCOCCU... Complete Cardiovascular: Regular Lungs: Clear Abdomen: Other (obese abdomen; non tender ) Extremities: Other (see below ) Narrative Exam LEFT lower leg Wound Vac in place A/P Problem List: (1) Pleural effusion ICD Codes: J90 - Pleural effusion, not elsewhere classified Status: Acute (2) Atrial fibrillation with RVR ICD Codes: I48.91 - Unspecified atrial fibrillation Status: Acute (3) Morbid obesity ICD Codes: E66.01 - Morbid (severe) obesity due to excess calories (4) Cardiomyopathy ICD Codes: I42.9 - Cardiomyopathy, unspecified (5) Unspecified psychosis ICD Codes: F29 - Unspecified psychosis not due to a substance or known physiological condition Assessment and Plan 62 year old male with multiple medical problems; s/p respiratory failure requiring intubated; s/p fasciotomy of LEFT leg; concern for colon mass in the hepatic flexure (concern for cancer) -Diet as tolerated -Await pathology results -Will make a plan once pathology available - consult for location and contact information for next of kin Attending Statement patient seen at bedside, agree with above path still pending likely cancer will need to identify next of kin Attestation The exam, history, and the medical decision-making described in the above note were completed with the assistance of the mid-level provider. I reviewed and agree with the findings presented. I attest that I had a [id number] encounter with the patient on the same day, and personally performed and documented my assessment and findings in the medical record. Krysten Glynn Jul 13, 2017 10:05 Zeb Campuzano MD Jul 16, 2017 15:40
--- NOTE | 2017-07-13 10:37 | HHI.PR ---
Subjective Remarks Follow-up for respiratory failure, atrial fibrillation, large colonic mass. Patient is currently doing well. Denies any chest pain, shortness of breath, fever or chills. Objective Vitals Vital Signs Date Time Temp Pulse Resp B/P (MAP) Pulse Ox O2 Delivery O2 Flow Rate FiO2 07/13/17 09:09 92 Nasal Cannula 4.00 07/13/17 08:00 97.7 112 24 147/85 (105) 95 07/13/17 07:00 97 Nasal Cannula 5.00 07/13/17 06:00 92 07/13/17 04:00 97.7 104 26 171/88 (115) 97 07/13/17 04:00 92 07/13/17 02:00 92 07/13/17 00:00 97 07/13/17 00:00 97.8 90 26 148/80 (102) 96 07/12/17 22:00 96 07/12/17 20:46 95 Nasal Cannula 4.00 07/12/17 20:00 96 07/12/17 20:00 97.6 100 26 172/82 (112) 99 07/12/17 19:00 97 Nasal Cannula 5.00 07/12/17 16:00 98.0 100 143/68 (93) 07/12/17 15:06 97.8 107 26 147/74 98 07/12/17 12:00 84 07/12/17 12:00 98.0 96 116/66 (83) I/O 07/12/17 07/12/17 07/12/17 07/13/17 07/13/17 07/13/17 07:00 15:00 23:00 07:00 15:00 23:00 Intake Total 60 ml 520 ml 240 ml Output Total 1000 ml 1150 ml Balance -940 ml 520 ml -910 ml Intake Oral 60 ml 240 ml Packed Cells 400 ml Blood Product IV Normal Saline Flush 120 ml Output Urine Total 1000 ml 1100 ml Drainage Total 0 ml 50 ml # Voids 1 # Bowel Movements 3 2 Result Diagram: 07/13/17 0330 07/12/17 0530 Imaging Last Impressions Chest X-Ray 07/11/17 0600 Signed Impressions: Service Date/Time: Tuesday, July 11, 2017 03:29 - CONCLUSION: 1. Supe apparatus unchanged. Stable basilar airspace disease and pleural effusions. Felipe Medina MD Abdomen/Pelvis CT 07/10/17 0000 Signed Impressions: Service Date/Time: Monday, July 10, 2017 20:38 - CONCLUSION: 1. Bilateral pleural effusions and lower lobe consolidation, right greater than left. 2. Distended urinary bladder with smooth margins and no focal opacities within the lumen. 3. No evidence of hydronephrosis. 4. No dilated loops of small bowel. Gas is seen in the lumen of the colon down to the level of the rectum. Linwood Kramer MD Lower Extremity Ultrasound 07/06/17 0000 Signed Impressions: Service Date/Time: Thursday, July 06, 2017 13:20 - CONCLUSION: 1. Probable large hematoma in the right calf this measures at least 36 x 5 x 7.6 cm. Please see above discussion. Srikanth Ware MD CT Angiography 06/28/17 1327 Signed Impressions: Service Date/Time: Wednesday, June 28, 2017 15:58 - CONCLUSION: 1. No pulmonary embolus identified. 2. Large right-sided pleural effusion with consolidation of the right lower lobe. Srikanth Ware MD Objective Remarks GENERAL: Alert, NAD. Morbidly obese. SKIN: Warm and dry. HEAD: Normocephalic. EYES: No scleral icterus. No injection or drainage. NECK: Supple, trachea midline. No JVD or lymphadenopathy. CARDIOVASCULAR: Regular rate and rhythm without murmurs, gallops, or rubs. RESPIRATORY: Breath sounds equal bilaterally. No accessory muscle use. GASTROINTESTINAL: Abdomen soft, non-tender, obese abdomen. Bowel sounds positive. MUSCULOSKELETAL: No cyanosis, or edema. BACK: Nontender without obvious deformity. No CVA tenderness. Procedures 07/09-EGD 07/10-colonoscopy A/P Assessment and Plan Mr. Flanagan is a 62-year-old male who was admitted on 06/28/2017 due to shortness of breath and lower extremity swelling. CT scan indicated large pleural effusion on the right side. However patient refused thoracentesis. He was also diagnosed with atrial fibrillation. His leg pain became much worse and after evaluation patient was taken to or for emergent fasciotomy, incision and drainage of right calf hematoma. Patient was intubated and underwent emergent thoracentesis with 2.2 L of fluid drainage in the ICU. Patient's hemoglobin dropped to 6.4 and required 2 units of PRBCs. GI performed colonoscopy which showed a colonic mass near the hepatic flexure. Patient was extubated on 2016. Medical oncology, general surgery consulted. - Acute respiratory failure hypoxic - Right pleural effusion - Status post thoracentesis on 07/07/2017. Status post extubation on 2016. Pulmonology is following. - Maintain nasal cannula to keep O2 saturation greater than 90%. - Right calf hematoma with compartment syndrome - Status post emergent fasciotomy and debridement - S/P I&D right lower extremity with partial wound closure - Colonic mass near hepatic flexure - Pathology pending. Likely Colon cancer. - General surgery following. Full code. Heparin SQ. Talib Salvador DO Jul 13, 2017 10:37
--- NOTE | 2017-07-13 10:39 | PD.ORT.PN ---
Subjective Subjective Remarks POD 4 s/p I&D right leg patient confused. combatative. keeps trying to get out of bed Objective Vitals Vital Signs Date Time Temp Pulse Resp B/P (MAP) Pulse Ox O2 Delivery O2 Flow Rate FiO2 07/13/17 09:09 92 Nasal Cannula 4.00 07/13/17 08:00 97.7 112 24 147/85 (105) 95 07/13/17 07:00 97 Nasal Cannula 5.00 07/13/17 06:00 92 07/13/17 04:00 97.7 104 26 171/88 (115) 97 07/13/17 04:00 92 07/13/17 02:00 92 07/13/17 00:00 97 07/13/17 00:00 97.8 90 26 148/80 (102) 96 07/12/17 22:00 96 07/12/17 20:46 95 Nasal Cannula 4.00 07/12/17 20:00 96 07/12/17 20:00 97.6 100 26 172/82 (112) 99 07/12/17 19:00 97 Nasal Cannula 5.00 07/12/17 16:00 98.0 100 143/68 (93) 07/12/17 15:06 97.8 107 26 147/74 98 07/12/17 12:00 84 07/12/17 12:00 98.0 96 116/66 (83) I/O 07/12/17 07/12/17 07/12/17 07/13/17 07/13/17 07/13/17 07:00 15:00 23:00 07:00 15:00 23:00 Intake Total 60 ml 520 ml 240 ml Output Total 1000 ml 1150 ml Balance -940 ml 520 ml -910 ml Intake Oral 60 ml 240 ml Packed Cells 400 ml Blood Product IV Normal Saline Flush 120 ml Output Urine Total 1000 ml 1100 ml Drainage Total 0 ml 50 ml # Voids 1 # Bowel Movements 3 2 Result Diagram: 07/13/17 0330 07/12/17 0530 Objective Remarks RLE: dressings clean and dry. intact. NVI. +vac with good seal. vac removed. wound visualized. wound is clean. no drainage. has area of developing possible necrosis surrounding wound. Assessment & Plan Assessment and Plan 1) Right Leg Hematoma with compartment syndrome s/p Fasciotomy with I&D vac application - POD 7 -Second irrigation debridement with partial wound closure and wound VAC application applied POD#4 Maintain wound VAC at all times vac changed at bedside today will need further I&D possibly later this week Martir Moreno Jul 13, 2017 10:39
[2017-07-13] MEDS ORDERED: HALOPERIDOL LACTATE 5 MG/ML AMP IM PRN (10:45)
[2017-07-13] MEDS: HALOPERIDOL 0.5 MG TAB PO SCH ×2 (12:00→22:21)
--- NOTE | 2017-07-13 15:03 | HHI.PYPN ---
Subjective Remarks Patient was seen today for psychiatric reevaluation, also for evaluation of decision-making capacity, patient is found kind of agitated, stating that he is leaving the hospital and "get out of my way I am leaving". Patient was able to de-escalate verbally. He reports that he is doing okay, denies depression, he denies anxiety, he says that he is want to go. However, patient is unable to provide any meaningful information about the reason of his decision to go, or where he is going to go. She is oriented in person, but disoriented in time and place. He is unable to verbalize the reason of his hospitalizations, list medical illnesses, living able to verbalize a rational choice at this moment. Patient has been periodically agitated, at times difficult to redirect. Review of Systems Constitutional: DENIES: Diaphoretic episodes, Fatigue, Fever, Weight gain, Weight loss, Chills, Dizziness, Change in appetite, Night Sweats Endocrine: DENIES: Heat/cold intolerance, Polydipsia, Polyuria, Polyphagia Eyes: DENIES: Blurred vision, Diplopia, Eye inflammation, Eye pain, Vision loss , Photosensitivity, Double Vision Ears, nose, mouth, throat: DENIES: Tinnitus, Hearing loss, Vertigo, Nasal discharge, Oral lesions, Throat pain, Hoarseness, Ear Pain, Running Nose, Epistaxis, Sinus Pain, Toothache, Odynophagia Respiratory: DENIES: Apneas, Cough, Snoring, Wheezing, Hemoptysis, Sputum production, Shortness of breath Cardiovascular: DENIES: Chest pain, Palpitations, Syncope, Dyspnea on Exertion , PND, Lower Extremity Edema, Orthopnea, Claudication Gastrointestinal: DENIES: Abdominal pain, Black stools, Bloody stools, Constipation, Diarrhea, Nausea, Vomiting, Difficulty Swallowing, Anorexia Musculoskeletal: DENIES: Joint pain, Muscle aches, Stiffness, Joint Swelling, Back pain, Neck pain Integumentary: DENIES: Abnormal pigmentation, Nail changes, Pruritus, Rash Hematologic/lymphatic: DENIES: Bruising, Lymphadenopathy Immunologic/allergic: DENIES: Eczema, Urticaria Neurologic: DENIES: Abnormal gait, Headache, Localized weakness, Paresthesias, Seizures, Speech Problems, Tremor, Poor Balance Psychiatric: COMPLAINS OF: Confusion, DENIES: Anxiety, Mood changes, Depression , Hallucinations, Agitation, Suicidal Ideation, Homicidal Ideation, Delusions Objective Alert: Yes [place]: Person Mood: Agitated, Oppositional Affect: Other (irritable) Memory Intact: Comment (memory is definitely impaired) Hallucinations: Other (no hallucinations) Delusions: No Delusion Type: Other (no delusions elicited) Suicidal: Ideation (no SI) Homicidal: Ideation (no HI) Insight/Judgment Poor Labs Test 07/13/17 03:30 White Blood Count 15.4 TH/MM3 Red Blood Count 3.07 MIL/MM3 Hemoglobin 8.5 GM/DL Hematocrit 27.2 % Mean Corpuscular Volume 88.7 FL Mean Corpuscular Hemoglobin 27.7 PG Mean Corpuscular Hemoglobin Concent 31.2 % Red Cell Distribution Width 18.4 % Platelet Count 235 TH/MM3 Mean Platelet Volume 9.1 FL Neutrophils (%) (Auto) 87.5 % Lymphocytes (%) (Auto) 3.6 % Monocytes (%) (Auto) 7.9 % Eosinophils (%) (Auto) 0.4 % Basophils (%) (Auto) 0.6 % Neutrophils # (Auto) 13.5 TH/MM3 Lymphocytes # (Auto) 0.6 TH/MM3 Monocytes # (Auto) 1.2 TH/MM3 Eosinophils # (Auto) 0.1 TH/MM3 Basophils # (Auto) 0.1 TH/MM3 CBC Comment AUTO DIFF Differential Total Cells Counted 100 Neutrophils % (Manual) 86 % Band Neutrophils % 3 % Lymphocytes % 3 % Monocytes % 7 % Neutrophils # (Manual) 13.9 TH/MM3 Myelocytes 1 % Differential Comment FINAL DIFF MANUAL Platelet Estimate NORMAL Platelet Morphology Comment ENLARGED Basophilic Stippling FAINT Date/Time Source Procedure Growth Status 06/28/17 16:51 Blood Peripheral Aerobic Blood Culture - Final NO GROWTH IN 5 DAYS Complete 06/28/17 16:51 Blood Peripheral Anaerobic Blood Culture - Final NO GROWTH IN 5 DAYS Complete 07/07/17 01:00 Fluid Pleural Fluid Fungal Smear - Final NO FUNGAL ELEMENTS SEEN. Resulted 07/07/17 01:00 Fluid Pleural Fluid Fungal Culture Pending Resulted 07/08/17 15:00 Stool Stool Stool Occult Blood (MARSHAL) - Final HEMOCCULT NEGATIVE Complete 06/28/17 20:03 Urine Clean Catch Legionella Antigen - Final PRESUMPTIVE NEGATIVE FOR LEGIONELLA P... Complete 06/28/17 20:03 Urine Clean Catch Streptococcus pneumoniae Antigen (M - Final PRESUMPTIVE NEGATIVE FOR STREPTOCOCCU... Complete Vitals/IOs Vital Signs Date Time Temp Pulse Resp B/P (MAP) Pulse Ox O2 Delivery O2 Flow Rate FiO2 07/13/17 12:00 97.9 106 29 116/76 (89) 07/13/17 09:09 92 Nasal Cannula 4.00 07/11/17 12:32 40 Intake and Output 07/13/17 07/13/17 07/14/17 08:00 16:00 00:00 Intake Total 240 ml Output Total 1150 ml Balance -910 ml Assessment & Plan Problem List: (1) Unspecified psychosis ICD Codes: F29 - Unspecified psychosis not due to a substance or known physiological condition Assessment & Plan: Due to the level of disorientation, fluctuation of consciousness a lack of attention seems to be secondary to delirium most probably related with underline medical conditions. Due to his inability to verbalize a rational choice, reason of his hospitalization, understanding or appreciation of current medical problems, patient does not have decision-making capacity to refuse medical treatment or to leave AMA at this moment. A family member most identified in order be health care by proxy. I would highly recommend the assistance of palliative care in order to assess goal of care, hospice illegibility, subrogated decision maker. Will order Haldol 0.5 mg twice a day to help with the delirium. Haldol 2 mg IM every 8 hours when necessary aggressive behavior and agitation. We'll follow-up. Assessment & Plan Estimated LOS: days Justification for Cont. Inpt. Patient does not meet criteria for psychiatric admission at this moment. Juan M Barfield MD Jul 13, 2017 15:03
--- NOTE | 2017-07-13 17:26 | HHI.CCPN ---
Subjective Remarks/Hospital Course [id number] with multiple medical problems. He was initially admitted to the hospital on 06/28/17 with a chief complaint of shortness of breath and swelling of both legs. The CAT scan of the chest revealed large pleural effusion on the right however patient was refusing thoracentesis. He was also diagnosed with a new onset of atrial fibrillation and has been on anticoagulation while in the hospital. He was also complaining of approximately two day history of increasing leg pain and swelling and significant bruising. His pain became unbearable and he was taken emergently to operating room. He underwent fasciotomy incision and drainage of right calf hematoma and postoperatively he was admitted to ICU intubated. His chest x-ray repeat showed significant worsening of pleural effusion, patient was difficult to ventilate with high peak pressures on the ventilator, also his blood pressure showed hemodynamic compromise. The emergent thoracentesis was performed in the ICU with drainage of 2.2 L off fluid. SUBJECTIVE: 07/07/17: Patient remains intubated sedated. On lightening sedation he becomes very agitated FiO2. Chest x-ray post thoracentesis shows significant improvement in right effusion. Intermittently hypotensive not on pressors. s/p Incision and drainage of right calf hematoma, compartment release anterior and lateral compartments right calf, VAC dressing. 07/08/17: No acute events overnight. The patient continues on Precedex infusion currently at 0.4mcgs/kg/hr, plan to wean Precedex off and provide Ativan when necessary for agitation. Hemoglobin notably 7.0 today type and screen ordered for plans for OR wound closure on 07/09/17. The patient continues with symptoms of paranoia, but cooperative this a.m. Plan for swallow study to initiate feed. 07/09: Patient's hemoglobin continued to decline yesterday to 6.4.. The patient was transfused with 2 units RBCs .Yesterday the patient had a large melanotic stool also hematuria. Coagulation studies obtained within normal limits. GI was consulted, plan for colonoscopy today. Overnight the urine has cleared, hematuria resolved. The patient has a condom catheter good urinary output. Patient continues to be wean off phenylephrine. Patient continues to have paranoia, bouts of confusion. 07/10: Yesterday the patient underwent I&D of the right calf and partial closure of the right calf wound, returned to ICU intubated and sedated placed on propofol and fentanyl infusion. The patient also underwent upper endoscopy, an attempted colonoscopy but was unsuccessful secondary to poor prep. The patient received GoLYTELY throughout the night via OGT with plans for repeat colonoscopy today. Hemodynamically the patient continues to be hypotensive, lisinopril placed on hold, carvedilol decreased dosage by half to 12.5 mg. Low- dose phenylephrine infusion continues at 50 mcgs. 07/11: Hemoglobin stable .The patient underwent colonoscopy yesterday afternoon which revealed multiple polyps in the ascending colon as well as one large colonic mass in the hepatic flexure measuring 3-4 cm issues for carcinoma. General surgery and oncology was consulted. CEA lab, colonic biopsy pending. Plan for CPAP trials this a.m. with plans for extubation. 07/12: No acute events overnight. The patient was successfully extubated yesterday afternoon. Plans for OT PT evaluation and out of bed to chair today. The patient currently A. fib beta blockers were being held secondary to hypotension, which has now resolved. Coreg has been reinstituted twice a day along with patient's lisinopril. The patient continues on Lasix 40 mg daily however secondary to hypotension , creatinine increased to 1.47->1.5 today. Psychiatry consulted for competency, and cognitive evaluation. Case management also consulted. Patient's hemoglobin dropped to 7.5 to be transfused with 1 unit packed cells today. CONSULT NOTE 07/13: Patient found in asystole. Patient status post cardiac arrest with ROSC within 10 mins. Patient intubated, received 3 rounds of 1 mg epinephrine, 1 amp of sodium bicarbonate. EKG, stat labs pending. See CPR note. ROS Unable to obtain secondary to clinical condition. Objective Vital Signs Date Time Temp Pulse Resp B/P (MAP) Pulse Ox O2 Delivery O2 Flow Rate FiO2 07/13/17 17:11 100 100 07/13/17 12:00 97.9 106 29 116/76 (89) 07/13/17 09:09 Nasal Cannula 4.00 Intake and Output 07/13/17 07/13/17 07/13/17 07:59 15:59 23:59 Intake Total 240 ml Output Total 1150 ml Balance -910 ml Result Diagram: 07/13/17 0330 07/12/17 0530 Imaging Last Impressions Chest X-Ray 07/10/17 0600 Signed Impressions: Service Date/Time: Monday, July 10, 2017 03:44 - CONCLUSION: 1. Support apparatus in good position. Basilar airspace disease slightly improved on the right since July 09. Felipe Medina MD Lower Extremity Ultrasound 07/06/17 0000 Signed Impressions: Service Date/Time: Thursday, July 06, 2017 13:20 - CONCLUSION: 1. Probable large hematoma in the right calf this measures at least 36 x 5 x 7.6 cm. Please see above discussion. Srikanth Ware MD CT Angiography 06/28/17 1327 Signed Impressions: Service Date/Time: Wednesday, June 28, 2017 15:58 - CONCLUSION: 1. No pulmonary embolus identified. 2. Large right-sided pleural effusion with consolidation of the right lower lobe. Srikanth Ware MD Last 24 hours Impressions Chest X-Ray 07/07/17 0000 Signed Impressions: Service Date/Time: Friday, July 07, 2017 01:22 - CONCLUSION: 1. Right thoracentesis without pneumothorax. Felipe Medina MD Objective Remarks GENERAL:This ia an obese male intubated and sedated but easily arousable SKIN: Warm and dry. HEAD: Normocephalic. EYES: No scleral icterus. No injection or drainage. NECK: Supple, trachea midline. No JVD or lymphadenopathy. Intubated. CARDIOVASCULAR: Regular rate and rhythm without murmurs, gallops, or rubs. RESPIRATORY: Breath sounds equal bilaterally. Mechanical ventilation GASTROINTESTINAL: Abdomen soft, non-tender, nondistended. MUSCULOSKELETAL: status post fasciotomy on the right calf, dressing dry and clean. Right foot edema 1+ Capillary refill brisk right lower extremity. Biphasic dopplerable pulses BACK: Nontender without obvious deformity. NEURO EXAM: Mental Status: The patient is sedated and intubated Cranial Nerves: Pupils are round, reactive to light. No focal deficits. Movement of extremities 4 on command Procedures 07/09-EGD 07/10-colonoscopy 07/13 asystolic cardiac arrest with ROSC in 10 mins Urinary Catheter: Yes Art insert reason: Measure Accurate Output A/P Assessment and Plan Neuro: - Neurochecks per ICU protocol - Psychiatry consult to assess competency - Ativan 1 mg every 4 hours when necessary for agitation Resp: Acute hypoxemic respiratory failure R Pleural effusion - Postoperatively hypoxemic - 07/07 S/P thoracentesis with 2.2 L removed - s/p extubation 02/08 - Followed by wave solder offbearer, Dr. Palacios - CVS: New onset Atrial Fibrillation - Cardiology following, Dr. Krishnamurthy afib rate controlled - Carvedilol 25 mg BID - EF of 30-35% with global hypokinesia, mild concentric left ventricular hypertrophy, mild mitral valve regurgitation. - Anticoagulation on hold due surgical procedures and GI Bleeding - Hold po Lasix. Continue IV 40mg q12 -07/13 S/P asystolic cardiac arrest w ROSC within 10 mins Pulmonary Acute hypoxemic respiratory failure -07/13 intubated 8.0ETT -Follow-up ABG, chest x-ray -ABG's and chest x-rays as clinically indicated -Obtain CTA pulmonary-rule out thrombus ID/Heme/MSK: Right calf hematoma with compartment syndrome - Status post emergent fasciotomy and debridement - DC Meropenem, clindamycin, vancomycin. Place on Zosyn 4.5 GM IV q6h - Follow up panculture - Transfuse to keep hemoglobin more than 7 07/09- S/P I&D right lower extremity with partial wound closure -Wound VAC output less than 100 cc in the last 24 hours -07/07 Pleural fluid negative -07/12 type and screen, transfuse 1 unit packed cells, Hgb 7.5 -Hematology- oncology consulted- for possible carcinoma Dr. Bryon Rivers GI: - NPO for now -Bowel regimen -Follow-up general surgery recommendations -Follow GI recommendations : NAZIA - Creatinine elevated 1.47->1.5 today, secondary to episodes of hypotension -Monitor BMP Endo: - Electrolyte replacement per protocol -Monitor BMP MSK: - PT /OT evaluation -Continue evaluation of the right lower extremity S/P I&D and partial wound closure with wound VAC DVT GI prophylaxis - Teds SCDs - subcutaneous heparin started on 07/12 - Pepcid Critical Care: my billing statement This patient remains critically ill with one or more organ systems which are or may become a threat to life. I have spent in excess of 60 minutes discontinuously in the care and management of this patient. This time is exclusive of procedures, and includes, but is not limited to, evaluation of the patient, review of the medical record, discussions with family, consultants, nursing staff, or respiratory therapy, and documentation in the medical record. Physician Mirta Armstrong MD 3, 2017 17:26
--- NOTE | 2017-07-13 17:43 | HHI.CCPN ---
History - Height: 182.88 cm Weight: 147 kg Allergies: Coded Allergies: cefuroxime (Unverified Allergy, Unknown, 06/28/17) Major 24 Hour Events Date:07/13/17 Procedure: Cardiopulmonary resuscitation Indication:Asystolic Cardiac arrest Details of procedure: Upon walking past patient's room at 1650, the tatient developed asystole cardiac arrest. Per ACLS protocol, patient received CPR, manual bagvalve ventilation . The patient was intubated with an 80 endotracheal tube 1 attempt , with grade 1 view. Epinephrine 1 mg x 3, and sodium bicarbonate 1 amp was given After 10 minutes resuscitation we were ableto restore spontaneous circulation. There was no family to notify , multiple attempts since admission to locate family have thus far been unsuccessful. Drips Drips None Vent Settings Respiratory Data Mechanical ventilation Tidal volume 600 rate 16 FiO2 100% PEEP of 5 ET Tube Size, Placement Date 07/13- 8.0 @ 24 cm at the lip Mechanical Vent Remarks See above IV Lines A Line Date & Location Right radial 07/13 Exam Patient Data - Vital Signs Date Time Temp Pulse Resp B/P (MAP) Pulse Ox O2 Delivery O2 Flow Rate FiO2 07/13/17 17:11 100 100 07/13/17 12:00 97.9 106 29 116/76 (89) 07/13/17 09:09 92 Nasal Cannula 4.00 07/13/17 08:00 97.7 112 24 147/85 (105) 95 07/13/17 07:00 97 Nasal Cannula 5.00 07/13/17 06:00 92 07/13/17 04:00 97.7 104 26 171/88 (115) 97 07/13/17 04:00 92 07/13/17 02:00 92 07/13/17 00:00 97 07/13/17 00:00 97.8 90 26 148/80 (102) 96 07/12/17 22:00 96 07/12/17 20:46 95 Nasal Cannula 4.00 07/12/17 20:00 96 07/12/17 20:00 97.6 100 26 172/82 (112) 99 07/12/17 19:00 97 Nasal Cannula 5.00 Medications see MAR Results CBC/BMP: 07/13/17 0330 07/12/17 0530 Micro/ID Microbiology Date/Time Source Procedure Growth Status 06/28/17 16:51 Blood Peripheral Aerobic Blood Culture - Final NO GROWTH IN 5 DAYS Complete 06/28/17 16:51 Blood Peripheral Anaerobic Blood Culture - Final NO GROWTH IN 5 DAYS Complete 07/07/17 01:00 Fluid Pleural Fluid Fungal Smear - Final NO FUNGAL ELEMENTS SEEN. Resulted 07/07/17 01:00 Fluid Pleural Fluid Fungal Culture Pending Resulted 07/08/17 15:00 Stool Stool Stool Occult Blood (MARSHAL) - Final HEMOCCULT NEGATIVE Complete 06/28/17 20:03 Urine Clean Catch Legionella Antigen - Final PRESUMPTIVE NEGATIVE FOR LEGIONELLA P... Complete 06/28/17 20:03 Urine Clean Catch Streptococcus pneumoniae Antigen (M - Final PRESUMPTIVE NEGATIVE FOR STREPTOCOCCU... Complete Assessment/Plan Assessment/Plan - Assessment Asystolic cardiac arrest Plan ACLS protocol initiated, with ROSC within 10 mins -Obtain stat EKG -Obtain CBC BMP mag fossa -Obtain CT angiogram rule out thrombus -Stat Obtain chest x-ray Supportive Intensive care as clinically indicated. Time Spend with Patient Critical Care Minutes: 30 Mirta Viveros MD Jul 13, 2017 17:42
--- NOTE | 2017-07-13 17:53 | RADRPT ---
EXAM DATE/TIME: 07/13/2017 17:03 [facility] COMPARISON: CHEST SINGLE AP, July 11, 2017, 3:29. INDICATIONS : Post endotracheal tube placement. MEDICAL HISTORY : Hypertension. Cardiovascular disease SURGICAL HISTORY : Coronary artery stent ENCOUNTER: Initial ACUITY: 1 day PAIN SCORE: Non-responsive. LOCATION: Bilateral chest FINDINGS: ETT is stable with tip at the level the clavicles. There is a stable left IJ central line with tip in the proximal SVC. An NGT courses beyond the GE junction with tip omitted from the image. Stable righ t greater than left small bilateral pleural effusions and associated lower lobe airspace disease. Car diomediastinal contours are stable. Remainder of exam is unchanged. CONCLUSION: 1. Stable tubes and lines, as above. 2. Stable, right greater than left, small bilateral pleural effusions and associated lower lobe airsp kvng disease. 3. No significant interval change. Blas Hills MD on July 13, 2017 at 17:50 Board Certified Radiologist. This report was verified electronically.
[2017-07-13 17:54] LABS: HEMATOCRIT 25.4 % (39.0-51.0); MEAN CELL VOLUME 88.9 FL (80.0-100.0); MEAN CORPUSCULAR HEMOGLOBIN 28.4 PG (27.0-34.0); PLATELET COUNT 215 TH/MM3 (150-450); RED BLOOD COUNT 2.86 MIL/MM3 (4.50-5.90); RED CELL DISTRIBUTION WIDTH 18.1 % (11.6-17.2); REVIEW FLAG FINAL; WHITE BLOOD COUNT 13.5 TH/MM3 (4.0-11.0)
--- NOTE | 2017-07-13 17:54 | PD.CARD.PN ---
Subjective Subjective Remarks Arrest w asystole, now intubated, on the vent Objective Medications Administered Medications Medications (Trade) Dose Ordered Sig/Zeinab Route PRN Reason Start Time Stop Time Status Last Admin Dose Admin Senna/Docusate Sodium (Mehnaz-Colace) 1 tab BID PO 06/28/17 21:00 07/09/17 22:12 Guaifenesin (Mucinex Er) 600 mg BID PO 06/28/17 21:00 07/13/17 09:04 Albumin Human (Albumin 25% Inj) 25 gm Q12H IV 07/02/17 14:00 07/13/17 14:52 Digoxin (Lanoxin) 0.25 mg DAILY PO 07/02/17 16:45 07/13/17 09:02 Lisinopril (Prinivil) 10 mg DAILY PO 07/05/17 09:00 Future hold 07/13/17 09:03 Morphine Sulfate (Morphine Inj) 2 mg Q3H PRN IV PUSH pain 1-10 07/06/17 20:00 07/12/17 01:46 Sodium Chloride (NS Flush) 2 ml BID .XX 07/06/17 21:00 07/12/17 20:29 Albuterol/ Ipratropium (Duoneb Neb) 1 ampule Q2HR NEB PRN INH WHEEZING 07/06/17 21:00 07/13/17 09:08 Chlorhexidine Gluconate (Chlorhexidine 2% Cloth) Taper DAILY@04 TOP 07/07/17 04:00 07/03/18 03:59 07/08/17 05:31 Furosemide (Lasix Inj) 40 mg BID@,18 IV PUSH 07/07/17 09:00 07/13/17 09:04 Potassium Bicarb/ Potassium Chloride (K-Lyte Cl Eff) 25 meq Q12HR PO 07/07/17 09:00 07/13/17 09:01 Potassium Chloride 100 ml @ 25 mls/hr UNSCH PRN IV ELECTROLYTE REPLACEMENT 07/07/17 18:30 07/11/17 07:40 Potassium Phosphate 30 mmol/ Sodium Chloride 260 ml @ 43.333 mls/ hr UNSCH PRN IV ELECTROLYTE REPLACEMENT 07/07/17 18:30 07/07/17 18:55 Lorazepam (Ativan Inj) 1 mg Q4H PRN IV PUSH AGITATION AND/OR HALLUCINATION 07/08/17 09:15 07/12/17 04:32 Pantoprazole Sodium (Protonix Inj) 40 mg Q12H IV PUSH 07/08/17 16:00 07/13/17 03:24 Chlorhexidine Gluconate (Peridex 0.12% Liq) 15 ml BID@08,20 MT 07/09/17 20:00 07/11/17 08:36 Carvedilol (Coreg) 25 mg Q12HR PO 07/12/17 10:00 07/13/17 09:03 Heparin Sodium (Porcine) (Heparin Inj) 5,000 units Q12HR SQ 07/12/17 10:00 07/13/17 09:04 Vital Signs / I&O Vital Signs Date Time Temp Pulse Resp B/P (MAP) Pulse Ox O2 Delivery O2 Flow Rate FiO2 07/13/17 17:11 100 100 07/13/17 12:00 97.9 106 29 116/76 (89) 07/13/17 09:09 92 Nasal Cannula 4.00 07/13/17 08:00 97.7 112 24 147/85 (105) 95 07/13/17 07:00 97 Nasal Cannula 5.00 07/13/17 06:00 92 07/13/17 04:00 97.7 104 26 171/88 (115) 97 07/13/17 04:00 92 07/13/17 02:00 92 07/13/17 00:00 97 07/13/17 00:00 97.8 90 26 148/80 (102) 96 07/12/17 22:00 96 07/12/17 20:46 95 Nasal Cannula 4.00 07/12/17 20:00 96 07/12/17 20:00 97.6 100 26 172/82 (112) 99 07/12/17 19:00 97 Nasal Cannula 5.00 I/O 07/12/17 07/12/17 07/12/17 07/13/17 07/13/17 07/13/17 06:59 14:59 22:59 06:59 14:59 22:59 Intake Total 60 ml 520 ml 240 ml Output Total 1000 ml 1150 ml Balance -940 ml 520 ml -910 ml Intake Oral 60 ml 240 ml Packed Cells 400 ml Blood Product IV Normal Saline Flush 120 ml Output Urine Total 1000 ml 1100 ml Drainage Total 0 ml 50 ml # Voids 1 # Bowel Movements 3 2 Physical Exam GENERAL: Intubated, unresponsive. SKIN: Warm and dry. HEAD: Normocephalic. EYES: No scleral icterus. No injection or drainage. NECK: Supple, trachea midline. No JVD or lymphadenopathy. CARDIOVASCULAR: Irreg, without murmurs, gallops, or rubs. RESPIRATORY: Breath sounds equal bilaterally. Few rhonchi, distant BS GASTROINTESTINAL: Abdomen soft, obese MUSCULOSKELETAL: No cyanosis, LE dressed Laboratory Laboratory Tests Test 07/13/17 03:30 07/13/17 17:30 White Blood Count 15.4 TH/MM3 Red Blood Count 3.07 MIL/MM3 Hemoglobin 8.5 GM/DL Hematocrit 27.2 % Mean Corpuscular Volume 88.7 FL Mean Corpuscular Hemoglobin 27.7 PG Mean Corpuscular Hemoglobin Concent 31.2 % Red Cell Distribution Width 18.4 % Platelet Count 235 TH/MM3 Mean Platelet Volume 9.1 FL Neutrophils (%) (Auto) 87.5 % Lymphocytes (%) (Auto) 3.6 % Monocytes (%) (Auto) 7.9 % Eosinophils (%) (Auto) 0.4 % Basophils (%) (Auto) 0.6 % Neutrophils # (Auto) 13.5 TH/MM3 Lymphocytes # (Auto) 0.6 TH/MM3 Monocytes # (Auto) 1.2 TH/MM3 Eosinophils # (Auto) 0.1 TH/MM3 Basophils # (Auto) 0.1 TH/MM3 CBC Comment AUTO DIFF Differential Total Cells Counted 100 Neutrophils % (Manual) 86 % Band Neutrophils % 3 % Lymphocytes % 3 % Monocytes % 7 % Neutrophils # (Manual) 13.9 TH/MM3 Myelocytes 1 % Differential Comment FINAL DIFF MANUAL Platelet Estimate NORMAL Platelet Morphology Comment ENLARGED Basophilic Stippling FAINT Assessment and Plan Problem List: (1) Morbid obesity ICD Codes: E66.01 - Morbid (severe) obesity due to excess calories (2) Atrial fibrillation with RVR ICD Codes: I48.91 - Unspecified atrial fibrillation Status: Acute (3) Cardiomyopathy ICD Codes: I42.9 - Cardiomyopathy, unspecified (4) Pleural effusion ICD Codes: J90 - Pleural effusion, not elsewhere classified Status: Acute (5) ETOH abuse ICD Codes: F10.10 - Alcohol abuse, uncomplicated Assessment and Plan Asystole, resp arrest, intubated, cont vent support. Cont ICU care. Continue rate control of AF. Echo with moderate LV dysfunction. Continue tx for CHF. Poor candidate for full anticoagulation due to noncompliance. Overall very poor prognosis. Blair Krishnamurthy MD Jul 13, 2017 17:54
[2017-07-13 18:09] LABS: MAGNESIUM 2.6 MG/DL (1.5-2.5); POTASSIUM 4.4 MEQ/L (3.5-5.1)
[2017-07-13] MEDS ORDERED: EPINEPHrine HCL (1:10,000) 1 MG/10 ML SYRINGE ONE (18:13)
[2017-07-13] MEDS ORDERED: PROPOFOL 1000 MG/100 ML INJ 100 ML ONE (18:13)
[2017-07-13 18:16] LABS: PROTHROMBIN TIME - PATIENT 11.3 SEC (9.8-11.6)
[2017-07-13] MEDS ORDERED: IOHEXOL 350 MG/ML 10 ML VIAL (for RAD DIAG) IVCONTRAST ONE (19:03)
--- NOTE | 2017-07-13 19:08 | RADRPT ---
EXAM DATE/TIME: 07/13/2017 18:43 [facility] COMPARISON: CT PULMONARY ANGIOGRAM, June 28, 2017, 15:58. INDICATIONS : Asystolic arrest. Evaluate for emboli. IV CONTRAST: 75 cc Omnipaque 350 (iohexol) IV RADIATION DOSE: 33.39 CTDIvol (mGy) MEDICAL HISTORY : Cardiovascular disease. Hypertension. Myocardial infarction. SURGICAL HISTORY : None. ENCOUNTER: Initial ACUITY: 1 day PAIN SCALE: Non-responsive LOCATION: chest TECHNIQUE: Volumetric scanning of the chest was performed using a pulmonary embolism protocol MIP images were re constructed. Using automated exposure control and adjustment of the mA and/or kV according to patien t size, radiation dose was kept as low as reasonably achievable to obtain optimal diagnostic quality images. DICOM format image data is available electronically for review and comparison. Follow-up recommendations for detected pulmonary nodules are based at a minimum on nodule size and pa tient risk factors according to Fleischner Society Guidelines. FINDINGS: PULMONARY ARTERIES: No filling defects are seen in the pulmonary arteries through the segmental level. LUNGS: There is consolidation in the dependent posterior lung vance bilaterally associated with bilateral e ffusion, considerably larger on the right than the left. There is mild atelectasis also present in th e right upper lobe anteriorly and in the lingula. Coarse interstitial changes are present in the cent ral left lung base. A tiny nodule is present in the subpleural aspect of the posterolateral left lowe r lobe which was noted previously. PLEURAE: Bilateral effusions, moderate on the right. Small and the left. MEDIASTINUM: There is good visualization of the great vessels of the middle mediastinum. No evidence of mediastin al or hilar adenopathy/mass. MUSCULOSKELETAL: Within normal limits for patient age. MISCELLANEOUS: Nodular prominence of the right adrenal gland. CONCLUSION: No evidence of pulmonary embolism Cole Saleh MD on July 13, 2017 at 19:04 Board Certified Radiologist. This report was verified electronically.
[2017-07-13 20:57] LABS: BLOOD GAS BASE EXCESS 5.8 mmol/L (-2-2); BLOOD GAS CARBOXYHEMOGLOBIN 1.8 % (0-4); BLOOD GAS HCO3 32 mmol/L (22-26); BLOOD GAS METHEMOGLOBIN 0.9 % (0-2); BLOOD GAS O2 HGB SATURATION 93 % (90-100); BLOOD GAS OXYGEN CONTENT 11.1 Vol % (12.0-20.0); BLOOD GAS PCO2 66 mmHg (38-42); BLOOD GAS PO2 80 mmHg (61-120); BLOOD GAS TOTAL HGB 8.4 G/DL (12.0-16.0); TEMP CORR TO 98.6
[2017-07-13 20:58] LABS: CRITICAL VALUE YES; OXYGEN DEVICE VENTILATOR
[2017-07-13 20:58] LABS: BLOOD, URINE MOD (NEG); GLUCOSE,URINE NEG (NEG); KETONE, URINE NEG (NEG); NITRITE,URINE NEG (NEG); PH, URINE 5.5 (5.0-8.5); SQUAMOUS EPITHELIAL CELL URINE <1 /hpf (0-5); URINE COLOR YELLOW (YELLW/STRAW)
[2017-07-13 20:59] LABS: DRAW SITE ART LINE; FIO2 50 %; STAT NO
[2017-07-13 20:59] LABS: COMMENT (UR) CATH-CULTURE IND; CULTURE IF INDICATED CATH CULTURE IND
[2017-07-13] MEDS: PROPOFOL 1000 MG/100 ML INJ 100 ML IV PRN (21:00)
--- NOTE | 2017-07-13 21:14 | PD.ONC.PN ---
Subjective Subjective Remarks Had asystole and resuscitation now intubated no family members present Objective Data Date Time Temp Pulse Resp B/P (MAP) Pulse Ox O2 Delivery O2 Flow Rate FiO2 07/13/17 19:55 99 50 07/13/17 17:11 100 100 07/13/17 16:00 98.4 103 20 110/60 (77) 99 07/13/17 12:00 97.9 106 29 116/76 (89) 07/13/17 09:09 92 Nasal Cannula 4.00 07/13/17 08:00 97.7 112 24 147/85 (105) 95 07/13/17 07:00 97 Nasal Cannula 5.00 07/13/17 06:00 92 07/13/17 04:00 97.7 104 26 171/88 (115) 97 07/13/17 04:00 92 07/13/17 02:00 92 07/13/17 00:00 97 07/13/17 00:00 97.8 90 26 148/80 (102) 96 07/12/17 22:00 96 07/13/17 07/13/17 07/13/17 07:00 15:00 23:00 Intake Total 240 ml 1660 ml Output Total 1150 ml 3200 ml Balance -910 ml -1540 ml Result Diagram: 07/13/17 1730 07/13/17 1730 Laboratory Results Laboratory Tests Test 07/13/17 03:30 07/13/17 17:30 07/13/17 20:00 07/13/17 20:36 White Blood Count 15.4 TH/MM3 13.5 TH/MM3 Red Blood Count 3.07 MIL/MM3 2.86 MIL/MM3 Hemoglobin 8.5 GM/DL 8.1 GM/DL Hematocrit 27.2 % 25.4 % Mean Corpuscular Volume 88.7 FL 88.9 FL Mean Corpuscular Hemoglobin 27.7 PG 28.4 PG Mean Corpuscular Hemoglobin Concent 31.2 % 32.0 % Red Cell Distribution Width 18.4 % 18.1 % Platelet Count 235 TH/MM3 215 TH/MM3 Mean Platelet Volume 9.1 FL 9.7 FL Neutrophils (%) (Auto) 87.5 % Lymphocytes (%) (Auto) 3.6 % Monocytes (%) (Auto) 7.9 % Eosinophils (%) (Auto) 0.4 % Basophils (%) (Auto) 0.6 % Neutrophils # (Auto) 13.5 TH/MM3 Lymphocytes # (Auto) 0.6 TH/MM3 Monocytes # (Auto) 1.2 TH/MM3 Eosinophils # (Auto) 0.1 TH/MM3 Basophils # (Auto) 0.1 TH/MM3 CBC Comment AUTO DIFF Differential Total Cells Counted 100 Neutrophils % (Manual) 86 % Band Neutrophils % 3 % Lymphocytes % 3 % Monocytes % 7 % Neutrophils # (Manual) 13.9 TH/MM3 Myelocytes 1 % Differential Comment FINAL DIFF MANUAL Platelet Estimate NORMAL Platelet Morphology Comment ENLARGED Basophilic Stippling FAINT Prothrombin Time 11.3 SEC Prothromb Time International Ratio 1.0 RATIO Blood Urea Nitrogen 22 MG/DL Creatinine 1.35 MG/DL Random Glucose 172 MG/DL Calcium Level 9.2 MG/DL Phosphorus Level 5.2 MG/DL Magnesium Level 2.6 MG/DL Sodium Level 143 MEQ/L Potassium Level 4.4 MEQ/L Chloride Level 103 MEQ/L Carbon Dioxide Level 36.0 MEQ/L Anion Gap 4 MEQ/L Estimat Glomerular Filtration Rate 54 ML/MIN Lactic Acid Level 2.4 mmol/L Ammonia 45 MCMOL/L Urine Color YELLOW Urine Turbidity CLEAR Urine pH 5.5 Urine Specific Baker 1.011 Urine Protein NEG mg/dL Urine Glucose (UA) NEG mg/dL Urine Ketones NEG mg/dL Urine Occult Blood MOD Urine Nitrite NEG Urine Bilirubin NEG Urine Urobilinogen LESS THAN 2.0 MG/DL Urine Leukocyte Esterase MOD Urine RBC 63 /hpf Urine WBC 22 /hpf Urine Squamous Epithelial Cells <1 /hpf Urine Sperm RARE Microscopic Urinalysis Comment CATH-CULTURE IND Blood Gas Puncture Site ART LINE Blood Gas Patient Temperature 98.6 Blood Gas HCO3 32 mmol/L Blood Gas Base Excess 5.8 mmol/L Blood Gas Oxygen Saturation 93 % Arterial Blood pH 7.31 Arterial Blood Partial Pressure CO2 66 mmHg Arterial Blood Partial Pressure O2 80 mmHg Arterial Blood Oxygen Content 11.1 Vol % Arterial Blood Carboxyhemoglobin 1.8 % Arterial Blood Methemoglobin 0.9 % Blood Gas Hemoglobin 8.4 G/DL Oxygen Delivery Device VENTILATOR Blood Gas Ventilator Setting COMMENT Blood Gas Inspired Oxygen 50 % Culture Results Microbiology Date/Time Source Procedure Growth Status 07/13/17 20:00 Urine Catheterized Urine Urine Culture Pending Received Imaging Studies Last 24 hours Impressions Chest X-Ray 07/13/17 1706 Signed Impressions: Service Date/Time: Thursday, July 13, 2017 17:03 - CONCLUSION: 1. Stable tubes and lines, as above. 2. Stable, right greater than left, small bilateral pleural effusions and associated lower lobe airspace disease. 3. No significant interval change. Blas Hills MD Administered Medications Medications (Trade) Dose Ordered Sig/Zeinab Route PRN Reason Start Time Stop Time Status Last Admin Dose Admin Senna/Docusate Sodium (Mehnaz-Colace) 1 tab BID PO 06/28/17 21:00 07/09/17 22:12 Guaifenesin (Mucinex Er) 600 mg BID PO 06/28/17 21:00 07/13/17 09:04 Albumin Human (Albumin 25% Inj) 25 gm Q12H IV 07/02/17 14:00 07/13/17 14:52 Digoxin (Lanoxin) 0.25 mg DAILY PO 07/02/17 16:45 07/13/17 09:02 Lisinopril (Prinivil) 10 mg DAILY PO 07/05/17 09:00 Future hold 07/13/17 09:03 Morphine Sulfate (Morphine Inj) 2 mg Q3H PRN IV PUSH pain 1-10 07/06/17 20:00 07/12/17 01:46 Sodium Chloride (NS Flush) 2 ml BID .XX 07/06/17 21:00 07/12/17 20:29 Albuterol/ Ipratropium (Duoneb Neb) 1 ampule Q2HR NEB PRN INH WHEEZING 07/06/17 21:00 07/13/17 09:08 Chlorhexidine Gluconate (Chlorhexidine 2% Cloth) Taper DAILY@04 TOP 07/07/17 04:00 07/03/18 03:59 07/08/17 05:31 Furosemide (Lasix Inj) 40 mg BID@18 IV PUSH 07/07/17 09:00 07/13/17 09:04 Potassium Bicarb/ Potassium Chloride (K-Lyte Cl Eff) 25 meq Q12HR PO 07/07/17 09:00 07/13/17 09:01 Potassium Chloride 100 ml @ 25 mls/hr UNSCH PRN IV ELECTROLYTE REPLACEMENT 07/07/17 18:30 07/11/17 07:40 Potassium Phosphate 30 mmol/ Sodium Chloride 260 ml @ 43.333 mls/ hr UNSCH PRN IV ELECTROLYTE REPLACEMENT 07/07/17 18:30 07/07/17 18:55 Lorazepam (Ativan Inj) 1 mg Q4H PRN IV PUSH AGITATION AND/OR HALLUCINATION 07/08/17 09:15 07/12/17 04:32 Pantoprazole Sodium (Protonix Inj) 40 mg Q12H IV PUSH 07/08/17 16:00 07/13/17 03:24 Chlorhexidine Gluconate (Peridex 0.12% Liq) 15 ml BID@08,20 MT 07/09/17 20:00 07/11/17 08:36 Carvedilol (Coreg) 25 mg Q12HR PO 07/12/17 10:00 07/13/17 09:03 Heparin Sodium (Porcine) (Heparin Inj) 5,000 units Q12HR SQ 07/12/17 10:00 07/13/17 09:04 Objective Remarks GENERAL: acutely ill. intubated SKIN: Warm and dry. LYMPHATIC: No adenopathy. CARDIOVASCULAR: Regular rate and rhythm without murmurs. RESPIRATORY: coarse sounds GASTROINTESTINAL: Abdomen soft, non-tender, nondistended. EXTREMITIES: No cyanosis, or edema. Assessment/Plan Problem List: (1) Respiratory distress ICD Codes: R06.00 - Dyspnea, unspecified (2) Colonic mass ICD Codes: K63.9 - Disease of intestine, unspecified (3) Pleural effusion ICD Codes: J90 - Pleural effusion, not elsewhere classified Status: Acute (4) Atrial fibrillation with RVR ICD Codes: I48.91 - Unspecified atrial fibrillation Status: Acute (5) Morbid obesity ICD Codes: E66.01 - Morbid (severe) obesity due to excess calories Assessment 62-year-old male who has a history of alcohol abuse who was admitted to the hospital with acute dyspnea and lower extremity swelling. He was found to have a large pleural effusion and new-onset atrial fibrillation. He had right calf swelling with a hematoma which and underwent fasciotomy and drainage. He became anemic and a colonoscopy was performed. He was having GI bleeding. This revealed a colonic mass at the level of the hepatic flexure. 1. Colonic mass at the level of the hepatic flexure. 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 s/p asystole and intubation. 2. Acute anemia from GI bleeding, hemoglobin today 7.5. keep hemoglobin greater than 8 in the setting of atrial fibrillation, history of coronary artery disease and myocardial infarction and now s/p asystole - Hb 8.1 - no blood products today 3. Acute renal failure with creatinine of 1.35, likely from acute illness, respiratory failure, hypotension, et cetera. Bryon Rivers MD Jul 13, 2017 21:14
[2017-07-13] MEDS: LORazepam 2 MG/ML VIAL IV PUSH PRN (22:18)
[2017-07-13 22:55] LABS: HEMATOCRIT 25.5 % (39.0-51.0); REVIEW FLAG FINAL
[2017-07-14] VITALS (21 sets, daily range): BP systolic 106–179; BP diastolic 62–98; PULSE 82–119; RESP 16; TEMP 98.2–100.9; O2SAT 56–100
[2017-07-14] MEDS: ALBUMIN HUMAN 25% 25 GM/100 ML BAGP IV SCH ×2 (01:51→15:06)
[2017-07-14] MEDS: NOREPINEPHRINE 4 MG/D5W 250 ML IV PRN ×5 (01:51→23:25)
[2017-07-14] MEDS: PROPOFOL 1000 MG/100 ML INJ 100 ML IV PRN ×4 (02:00→19:26)
[2017-07-14] MEDS: PANTOPRAZOLE SODIUM 40 MG VIAL IV PUSH SCH ×2 (03:13→15:06)
[2017-07-14 03:44] LABS: BASOPHIL # 0.1 TH/MM3 (0-0.2); BASOPHIL % 0.4 % (0.0-2.0); EOSINOPHIL # 0.1 TH/MM3 (0-0.4); EOSINOPHIL % 0.6 % (0.0-4.0); HEMATOCRIT 24.5 % (39.0-51.0); HEMO FLAGS DIFF FINAL; LYMPH % 2.6 % (9.0-44.0); LYMPHOCYTE # 0.4 TH/MM3 (1.0-4.8); MEAN CELL VOLUME 86.4 FL (80.0-100.0); MEAN CORPUSCULAR HEMOGLOBIN 27.7 PG (27.0-34.0); MEAN CORPUSCULAR HGB CONC 32.1 % (32.0-36.0); MONO % 7.7 % (0.0-8.0); NEUT % 88.7 % (16.0-70.0); PLATELET COUNT 266 TH/MM3 (150-450); RED BLOOD COUNT 2.83 MIL/MM3 (4.50-5.90); RED CELL DISTRIBUTION WIDTH 17.4 % (11.6-17.2); WHITE BLOOD COUNT 15.8 TH/MM3 (4.0-11.0)
[2017-07-14 03:57] LABS: BICARBONATE 34.5 MEQ/L (21.0-32.0); MAGNESIUM 2.3 MG/DL (1.5-2.5); POTASSIUM 3.5 MEQ/L (3.5-5.1)
[2017-07-14] MEDS: CHLORHEXIDINE GLUCONATE 2 % 1 PACK (2 CLOTHS) TOP SCH (04:00)
[2017-07-14] MEDS ORDERED: EPINEPHrine HCL (1:10,000) 1 MG/10 ML SYRINGE IV ONE (05:00)
[2017-07-14] MEDS ORDERED: SODIUM BICARBONATE 8.4% INJ 50 MEQ/50 ML SYR IV ONE (05:00)
[2017-07-14 06:22] LABS: BLOOD GAS BASE EXCESS 8.7 mmol/L (-2-2); BLOOD GAS CARBOXYHEMOGLOBIN 2.1 % (0-4); BLOOD GAS HCO3 32 mmol/L (22-26); BLOOD GAS METHEMOGLOBIN 1.1 % (0-2); BLOOD GAS O2 HGB SATURATION 90 % (90-100); BLOOD GAS OXYGEN CONTENT 10.2 Vol % (12.0-20.0); BLOOD GAS PCO2 40 mmHg (38-42); BLOOD GAS PO2 60 mmHg (61-120); TEMP CORR TO 98.6
[2017-07-14 06:24] LABS: CRITICAL VALUE YES; OXYGEN DEVICE VENT
[2017-07-14 06:25] LABS: DRAW SITE ART LINE; FIO2 50 %; STAT NO
--- NOTE | 2017-07-14 07:19 | PD.PROCEDR ---
Procedure Note Procedure I provided the service on 07/13/2017. Procedure: Arterial Line Placement Right radial arterial line Diagnosis: Status post PEA arrest Indications: Need for beat to beat hemodynamic monitoring Consent: Emergent Description of the Procedure: The right wrist was prepped and draped sterilely. 1% lidocaine was used for local anesthesia. The pulse was located and a needle was advanced into the artery. A 20 gauge, 12 cm catheter was advanced into the artery using a modified Seldinger technique. The catheter was sutured to the skin and a sterile dressing was applied. The catheter was connected to a pressure transducer and an arterial waveform was noted. There were no immediate complications noted. There was minimal EBL. I personally performed the procedure. Glenn Crow MD Jul 14, 2017 07:19
[2017-07-14] MEDS: CHLORHEXIDINE 0.12% (ORAL KIT) 15 ML CUP MT SCH ×2 (08:00→19:51)
--- NOTE | 2017-07-14 08:34 | PD.ORT.PN ---
Subjective Subjective Remarks intubated and stable Objective Vitals Vital Signs Date Time Temp Pulse Resp B/P (MAP) Pulse Ox O2 Delivery O2 Flow Rate FiO2 07/14/17 06:46 99.7 98 16 162/97 100 07/14/17 06:00 95 07/14/17 05:52 100.0 88 16 124/75 91 07/14/17 04:00 50 07/14/17 04:00 98 07/14/17 04:00 99.9 99 16 138/74 (95) 96 07/14/17 03:39 93 45 07/14/17 02:00 87 07/14/17 01:51 83 117/65 07/14/17 00:17 97 50 07/14/17 00:00 98.2 84 16 106/62 (77) 96 07/14/17 00:00 84 07/14/17 00:00 50 07/13/17 22:00 88 07/13/17 20:00 82 07/13/17 20:00 50 07/13/17 20:00 96.4 82 19 136/74 (94) 100 07/13/17 19:55 99 50 07/13/17 19:00 100 Mechanical Ventilator 50 07/13/17 17:11 100 100 07/13/17 16:00 98.4 103 20 110/60 (77) 99 07/13/17 12:00 97.9 106 29 116/76 (89) 07/13/17 09:09 92 Nasal Cannula 4.00 I/O 07/13/17 07/13/17 07/13/17 07/14/17 07/14/17 07/14/17 07:00 15:00 23:00 07:00 15:00 23:00 Intake Total 240 ml 1660 ml 652 ml Output Total 1150 ml 3200 ml 4350 ml Balance -910 ml -1540 ml -3698 ml Intake Oral 240 ml 960 ml IV Total 700 ml 92 ml Packed Cells 400 ml Blood Product IV Normal Saline Flush 40 ml Other 120 ml Output Urine Total 1100 ml 3200 ml 4200 ml Gastric Drainage Total 150 ml Drainage Total 50 ml 0 ml # Bowel Movements 2 6 3 Result Diagram: 07/14/17 0320 07/14/17 0320 Other Results Laboratory Tests Test 07/13/17 17:30 Prothromb Time International Ratio 1.0 RATIO Prothrombin Time 11.3 SEC (9.8-11.6) Imaging Last 24 hours Impressions Chest X-Ray 07/13/17 1706 Signed Impressions: Service Date/Time: Thursday, July 13, 2017 17:03 - CONCLUSION: 1. Stable tubes and lines, as above. 2. Stable, right greater than left, small bilateral pleural effusions and associated lower lobe airspace disease. 3. No significant interval change. Blas Hills MD Objective Remarks RLE: dressings clean and dry. intact. NVI. +vac with good seal. Assessment & Plan Assessment and Plan 1) Right Leg Hematoma with compartment syndrome s/p Fasciotomy with I&D vac application - POD 8 -Second irrigation debridement with partial wound closure and wound VAC application applied POD#5/ last vac change day #1 Maintain wound VAC at all times If stable surgery tomorrow sign consents NPO after MN Scar Edwards Jr. Jul 14, 2017 08:34
[2017-07-14] MEDS: DOCUSATE SODIUM 50 MG/SENNA 8.6 MG TAB PO SCH ×2 (09:00→19:53)
[2017-07-14] MEDS: SODIUM CHLORIDE 0.9% FLUSH 10 ML FLUSH SCH ×2 (09:00→19:51)
[2017-07-14] MEDS: LISINOPRIL 10 MG TAB PO SCH (09:26)
[2017-07-14] MEDS: POTASSIUM CHLORIDE 25 MEQ EFFERVESCENT TAB PO SCH ×2 (09:26→19:52)
[2017-07-14] MEDS: CARVEDILOL 12.5 MG TAB PO SCH ×2 (09:26→21:01)
[2017-07-14] MEDS: guaiFENesin E.R. 600 MG TAB PO SCH ×2 (09:26→19:47)
[2017-07-14] MEDS: DIGOXIN 0.25 MG TAB PO SCH (09:27)
[2017-07-14] MEDS: FUROSEMIDE 40 MG/4 ML VIAL IV PUSH SCH ×2 (09:27→18:46)
--- NOTE | 2017-07-14 09:43 | RADRPT ---
EXAM DATE/TIME: 07/14/2017 09:17 [facility] COMPARISON: CHEST SINGLE AP, July 13, 2017, 17:03. INDICATIONS : Short of breath. MEDICAL HISTORY : Cardiovascular disease. Hypertension. Myocardial infarction. SURGICAL HISTORY : None. ENCOUNTER: Subsequent ACUITY: 3 days PAIN SCORE: Non-responsive. LOCATION: Bilateral chest FINDINGS: The cardiac silhouette is normal in transverse diameter. Support lines and tubes are in satisfactory position. There is complete opacification of the right hemithorax which may atelectasis and effusion. The left lung is free of acute parenchymal opacity. CONCLUSION: 1. Complete opacification right hemithorax. Mucous plugging would be a consideration. This is new whe n compared with the prior exam. Keaton Jay MD on July 14, 2017 at 9:40 Board Certified Radiologist. This report was verified electronically.
[2017-07-14] MEDS ORDERED: ROCURONIUM INJ 50 MG/5 ML VIAL ONE ×2 (09:45→09:54)
[2017-07-14] MEDS ORDERED: ROCURONIUM INJ 50 MG/5 ML VIAL IV ONE (09:45)
[2017-07-14 10:22] LABS: BLOOD GAS BASE EXCESS 6.1 mmol/L (-2-2); BLOOD GAS CARBOXYHEMOGLOBIN 1.5 % (0-4); BLOOD GAS HCO3 31 mmol/L (22-26); BLOOD GAS METHEMOGLOBIN 1.1 % (0-2); BLOOD GAS O2 HGB SATURATION 68 % (90-100); BLOOD GAS OXYGEN CONTENT 9.7 Vol % (12.0-20.0); BLOOD GAS PCO2 49 mmHg (38-42); BLOOD GAS PO2 38 mmHg (61-120); BLOOD GAS TOTAL HGB 10.2 G/DL (12.0-16.0); CRITICAL VALUE YES; DRAW SITE ART LINE; FIO2 100 %; LITER FLOW 15 L/M; OXYGEN DEVICE AMBU BAG; STAT YES; TEMP CORR TO 98.6
--- NOTE | 2017-07-14 10:26 | EKG ---
Date Performed: 07/13/2017 Time Performed: 17:12:54 PTAGE: 62 years EKG: Atrial fibrillation. Abnormal ECG NO PREVIOUS TRACING DOCTOR: Griffin Hernandez Interpretating Date/Time 07/14/2017 10:25:46
--- NOTE | 2017-07-14 10:39 | HHI.CCPN ---
Subjective Remarks/Hospital Course [id number] with multiple medical problems. He was initially admitted to the hospital on 06/28/17 with a chief complaint of shortness of breath and swelling of both legs. The CAT scan of the chest revealed large pleural effusion on the right however patient was refusing thoracentesis. He was also diagnosed with a new onset of atrial fibrillation and has been on anticoagulation while in the hospital. He was also complaining of approximately two day history of increasing leg pain and swelling and significant bruising. His pain became unbearable and he was taken emergently to operating room. He underwent fasciotomy incision and drainage of right calf hematoma and postoperatively he was admitted to ICU intubated. His chest x-ray repeat showed significant worsening of pleural effusion, patient was difficult to ventilate with high peak pressures on the ventilator, also his blood pressure showed hemodynamic compromise. The emergent thoracentesis was performed in the ICU with drainage of 2.2 L off fluid. SUBJECTIVE: 07/07/17: Patient remains intubated sedated. On lightening sedation he becomes very agitated FiO2. Chest x-ray post thoracentesis shows significant improvement in right effusion. Intermittently hypotensive not on pressors. s/p Incision and drainage of right calf hematoma, compartment release anterior and lateral compartments right calf, VAC dressing. 07/08/17: No acute events overnight. The patient continues on Precedex infusion currently at 0.4mcgs/kg/hr, plan to wean Precedex off and provide Ativan when necessary for agitation. Hemoglobin notably 7.0 today type and screen ordered for plans for OR wound closure on 07/09/17. The patient continues with symptoms of paranoia, but cooperative this a.m. Plan for swallow study to initiate feed. 07/09: Patient's hemoglobin continued to decline yesterday to 6.4.. The patient was transfused with 2 units RBCs .Yesterday the patient had a large melanotic stool also hematuria. Coagulation studies obtained within normal limits. GI was consulted, plan for colonoscopy today. Overnight the urine has cleared, hematuria resolved. The patient has a condom catheter good urinary output. Patient continues to be wean off phenylephrine. Patient continues to have paranoia, bouts of confusion. 07/10: Yesterday the patient underwent I&D of the right calf and partial closure of the right calf wound, returned to ICU intubated and sedated placed on propofol and fentanyl infusion. The patient also underwent upper endoscopy, an attempted colonoscopy but was unsuccessful secondary to poor prep. The patient received GoLYTELY throughout the night via OGT with plans for repeat colonoscopy today. Hemodynamically the patient continues to be hypotensive, lisinopril placed on hold, carvedilol decreased dosage by half to 12.5 mg. Low- dose phenylephrine infusion continues at 50 mcgs. 07/11: Hemoglobin stable .The patient underwent colonoscopy yesterday afternoon which revealed multiple polyps in the ascending colon as well as one large colonic mass in the hepatic flexure measuring 3-4 cm issues for carcinoma. General surgery and oncology was consulted. CEA lab, colonic biopsy pending. Plan for CPAP trials this a.m. with plans for extubation. 07/12: No acute events overnight. The patient was successfully extubated yesterday afternoon. Plans for OT PT evaluation and out of bed to chair today. The patient currently A. fib beta blockers were being held secondary to hypotension, which has now resolved. Coreg has been reinstituted twice a day along with patient's lisinopril. The patient continues on Lasix 40 mg daily however secondary to hypotension , creatinine increased to 1.47->1.5 today. Psychiatry consulted for competency, and cognitive evaluation. Case management also consulted. Patient's hemoglobin dropped to 7.5 to be transfused with 1 unit packed cells today. CONSULT NOTE 07/13: Patient found in asystole. Patient status post cardiac arrest with ROSC within 10 mins. Patient intubated, received 3 rounds of 1 mg epinephrine, 1 amp of sodium bicarbonate. EKG, stat labs pending. See CPR note. ROS Unable to obtain secondary to clinical condition. Subjective: 07/14: Patient notably not moving air no chest excursion on the right. O2 saturation was 97%. Stat chest x-ray performed stat ABG obtained. Patient was noted on CTA last evening postcardiac arrest to have moderate right pleural effusions as well as the chest x-ray this a.m. showed mucus plugging with complete opacification of the right lung. Ultrasound evaluation at bedside was noted that the effusion was spread throughout some plan for IR CT-guided thoracentesis in the near future. Patient was placed on 100%, timeout was performed for bronchoscopy, O2 saturation 97, upon placing the bronchoscope into the endotracheal tube and viewing the lungs the patient notably precipitously desaturated, fiber-optic scope removed. Patient then became bradycardic-> asystole, 100% [id number] was provided at that time with subsequent cardiac arrest 1013. 1mg of epinephrine was given [id number] with 15 cm of PEEP provided, ROSC at 3 minutes. Repeat chest x-ray revealed a right lung open, and now left almost complete opacification. Patient was placed on 100% oxygen and a pressure control mode with high level of PEEP and Mucomyst. Planned repeat bronchoscopy later this afternoon pending on hemodynamic stability. Levophed infusion currently and Milrinone infusion added , EF 30-35%. Objective Vital Signs Date Time Temp Pulse Resp B/P (MAP) Pulse Ox O2 Delivery O2 Flow Rate FiO2 07/14/17 10:26 56 100 07/14/17 06:46 99.7 98 16 162/97 07/13/17 19:00 Mechanical Ventilator 07/13/17 09:09 4.00 Intake and Output 07/14/17 07/14/17 07/15/17 08:00 16:00 00:00 Intake Total 652 ml 650 ml Output Total 4350 ml Balance -3698 ml 650 ml Result Diagram: 07/14/17 0320 07/14/17 0320 Other Results Laboratory Tests Test 07/13/17 20:36 07/14/17 05:52 07/14/17 10:16 Blood Gas Puncture Site ART LINE ART LINE ART LINE Blood Gas Patient Temperature 98.6 98.6 98.6 Blood Gas HCO3 32 mmol/L (22-26) 32 mmol/L (22-26) 31 mmol/L (22-26) Blood Gas Base Excess 5.8 mmol/L (-2-2) 8.7 mmol/L (-2-2) 6.1 mmol/L (-2-2) Blood Gas Oxygen Saturation 93 % (90-100) 90 % (90-100) 68 % (90-100) Arterial Blood pH 7.31 (7.380-7.420) 7.51 (7.380-7.420) 7.41 (7.380-7.420) Arterial Blood Partial Pressure CO2 66 mmHg (38-42) 40 mmHg (38-42) 49 mmHg (38-42) Arterial Blood Partial Pressure O2 80 mmHg (61-120) 60 mmHg (61-120) 38 mmHg (61-120) Arterial Blood Oxygen Content 11.1 Vol % (12.0-20.0) 10.2 Vol % (12.0-20.0) 9.7 Vol % (12.0-20.0) Arterial Blood Carboxyhemoglobin 1.8 % (0-4) 2.1 % (0-4) 1.5 % (0-4) Arterial Blood Methemoglobin 0.9 % (0-2) 1.1 % (0-2) 1.1 % (0-2) Blood Gas Hemoglobin 8.4 G/DL (12.0-16.0) 8.0 G/DL (12.0-16.0) 10.2 G/DL (12.0-16.0) Oxygen Delivery Device VENTILATOR VENT AMBU BAG Blood Gas Ventilator Setting COMMENT Blood Gas Inspired Oxygen 50 % 50 % 100 % Blood Gas Liter Flow 15 L/M Imaging Last Impressions Chest X-Ray 07/10/17 0600 Signed Impressions: Service Date/Time: Monday, July 10, 2017 03:44 - CONCLUSION: 1. Support apparatus in good position. Basilar airspace disease slightly improved on the right since July 09. Felipe Medina MD Lower Extremity Ultrasound 07/06/17 0000 Signed Impressions: Service Date/Time: Thursday, July 06, 2017 13:20 - CONCLUSION: 1. Probable large hematoma in the right calf this measures at least 36 x 5 x 7.6 cm. Please see above discussion. Srikanth Ware MD CT Angiography 06/28/17 1327 Signed Impressions: Service Date/Time: Wednesday, June 28, 2017 15:58 - CONCLUSION: 1. No pulmonary embolus identified. 2. Large right-sided pleural effusion with consolidation of the right lower lobe. Srikanth Ware MD Last 24 hours Impressions Chest X-Ray 07/07/17 0000 Signed Impressions: Service Date/Time: Friday, July 07, 2017 01:22 - CONCLUSION: 1. Right thoracentesis without pneumothorax. Felipe Medina MD Objective Remarks GENERAL:This ia an obese male intubated and sedated but easily arousable SKIN: Warm and dry. HEAD: Normocephalic. EYES: No scleral icterus. No injection or drainage. NECK: Supple, trachea midline. No JVD or lymphadenopathy. Intubated. CARDIOVASCULAR: Regular rate and rhythm without murmurs, gallops, or rubs. RESPIRATORY: Breath sounds equal bilaterally. Mechanical ventilation GASTROINTESTINAL: Abdomen soft, non-tender, nondistended. MUSCULOSKELETAL: status post fasciotomy on the right calf, dressing dry and clean. Right foot edema 1+ Capillary refill brisk right lower extremity. Biphasic dopplerable pulses BACK: Nontender without obvious deformity. NEURO EXAM: Mental Status: The patient is sedated and intubated Cranial Nerves: Pupils are round, reactive to light. No focal deficits. Movement of extremities 4 on command Procedures 07/09-EGD 07/10-colonoscopy 07/13 asystolic cardiac arrest with ROSC in 10 mins A/P Assessment and Plan Neuro: Possible anoxic brain injury - Neurochecks per ICU protocol - Patient placed on Haldol 07/13 per psychiatry-discontinued - Propofol infusion for ventilator synchrony, after assessment neurologically post cardiac arrest -Immediate neurological assessment postcardiac arrest 07/13/17 patient spontaneously opens eyes, withdraws extremities x 4 with painful, does not track Resp: Acute hypoxemic respiratory failure R Pleural effusion - Reintubated 07/13- cardiac arrest ETT 8.0 at 22 cm at the lip - 07/07 S/P thoracentesis with 2.2 L removed , CT angiogram of 07/13 Bilateral pleural effusions, moderate right pleural effusion, small left pleural effusion. No PE. Patient will need ultrasound or CT-guided thoracentesis by IR in the near future -07/14 chest x-ray and complete opacification of right lung with mediastinal shift left lung free of acute parenchymal opacity. Bronchoscopy attempted, aborted secondary to cardiac arrest -07/14 chest x-ray-Post cardiac arrest-opacification right lung resolved,now almost complete left lung opacification - s/p extubation 07/11 - Followed by corrosion technician, Dr. Palacios -Planned repeat bronchus if hemodynamically stable -Mechanical ventilation PEEP at 15, pressure control setting maintain minute ventilation at 12L, paralysis, FiO2 100% Duonebs q 6 scheduled and q 2 hr PRN, Mucomyst 20% x 2 days - CVS: New onset Atrial Fibrillation - Cardiology following, Dr. Krishnamurthy afib rate controlled - Carvedilol 25 mg BID- placed on hold - EF of 30-35% with global hypokinesia, mild concentric left ventricular hypertrophy, mild mitral valve regurgitation. - Milrinone 0.375 post cardiac arrest 07/14 - Anticoagulation on hold due surgical procedures and GI Bleeding - Hold po Lasix. Continue IV 40mg q12 -07/13 S/P asystolic cardiac arrest w/ ROSC within 10 mins -07/14 S/P asystolic cardiac arrest with ROSC within 3 minutes Pulmonary Acute hypoxemic respiratory failure -07/13 intubated 8.0ETT -ABG's and chest x-rays as clinically indicated -Obtain CTA pulmonary-bilateral pleural effusions right greater than left, no PE. Right pleural effusion moderate size, noted to be diffuse throughout thorax. Planned CT-guided thoracentesis by IR in near future -Mucomyst, pressure control ventilation, PEEP currently at 5. Nimbex infusion -Plan for bronch today if hemodynamically stable for L lung opacification ID/Heme/MSK: Right calf hematoma with compartment syndrome - Status post emergent fasciotomy and debridement - DC Meropenem, clindamycin, vancomycin. Place on Zosyn 4.5 GM IV q6h - Follow up panculture - Transfuse to keep hemoglobin more than 7 07/09- S/P I&D right lower extremity with partial wound closure -Wound VAC output less than 100 cc in the last 24 hours -07/07 Pleural fluid negative 07/13 hematemesis -07/12 type and screen, transfuse 1 unit packed cells, Hgb 7.5, 07/13 transfused 1 unit PRBC -Hematology- oncolology Dr. Bryon Rivers-07/14 pathology result adenocarcinoma of the colon. Per Gen. surgery discussion with Ms. Glynn patient is a poor surgical candidate. Palliative care consulted GI: -Maintain NPO -Hematemesis noted last night 07/13, Dr. Koch following 1 unit packed red blood cells -Bowel regimen -General surgery-Dr. Naranjo- patient is a poor surgical candidate -Follow GI recommendations : NAZIA -Monitor BMP -Maintain Art -Strict I and os Endo: - Electrolyte replacement per protocol -Monitor BMP MSK: -Continue evaluation of the right lower extremity S/P I&D and partial wound closure with wound VAC DVT GI prophylaxis - Teds SCDs - Hematemesis, prophylaxis heparin SQ discontinued - Pepcid Critical Care: my billing statement This patient remains critically ill with one or more organ systems which are or may become a threat to life. I have spent in excess of 75 minutes discontinuously in the care and management of this patient. This time is exclusive of procedures, and includes, but is not limited to, evaluation of the patient, review of the medical record, discussions with family, consultants, nursing staff, or respiratory therapy, and documentation in the medical record. Discussed with Ms. Glynn (Gen Surgery) and BATH ATTENDANT at bedside Physician Mirta Armstrong MD Jul 14, 2017 10:39
[2017-07-14] MEDS: RESP: ALBUTEROL 2.5 MG/IPRATROPIUM 0.5 MG NEB (PRN) INH (10:45)
[2017-07-14 11:00] LABS: BLOOD GAS BASE EXCESS 7.6 mmol/L (-2-2); BLOOD GAS CARBOXYHEMOGLOBIN 1.5 % (0-4); BLOOD GAS HCO3 32 mmol/L (22-26); BLOOD GAS METHEMOGLOBIN 0.9 % (0-2); BLOOD GAS O2 HGB SATURATION 98 % (90-100); BLOOD GAS OXYGEN CONTENT 14.1 Vol % (12.0-20.0); BLOOD GAS PCO2 48 mmHg (38-42); BLOOD GAS PO2 321 mmHg (61-120); BLOOD GAS TOTAL HGB 9.7 G/DL (12.0-16.0); TEMP CORR TO 98.6
[2017-07-14 11:01] LABS: CRITICAL VALUE NO; DRAW SITE ART LINE; FIO2 100 %; OXYGEN DEVICE VENTILATOR; STAT NO; VENT SETTINGS PC/AC
--- NOTE | 2017-07-14 11:05 | RADRPT ---
EXAM DATE/TIME: 07/14/2017 10:22 [facility] COMPARISON: CT PULMONARY ANGIOGRAM, July 13, 2017, 18:43. CHEST SINGLE AP, July 14, 2017, 9:17. INDICATIONS : Post bronchoscope and chest compressions. Code blue. MEDICAL HISTORY : Cardiovascular disease. Hypertension. Myocardial infarction. SURGICAL HISTORY : None. ENCOUNTER: Subsequent ACUITY: 1 day PAIN SCORE: Non-responsive. LOCATION: Bilateral chest FINDINGS: Endotracheal tube is present with tip 5-6 cm above the addie. Nasogastric tube descends to the stoma ch. Left neck central line is stable in good position. There is near-complete opacification of the le ft hemithorax consistent with extensive parenchymal lung disease and likely associated effusion. The there is been interval reexpansion of the right lung which is now nearly clear. CONCLUSION: Extensive left lung consolidation and likely effusion. Cole Saleh MD on July 14, 2017 at 11:01 Board Certified Radiologist. This report was verified electronically.
[2017-07-14] MEDS ORDERED: CISATRACURIUM INJ 100 MG in SODIUM CHLOR 0.9% 250 ML INJ 250 ML IV PRN (11:15)
[2017-07-14 11:45] LABS: PROTHROMBIN TIME - PATIENT 11.2 SEC (9.8-11.6)
--- NOTE | 2017-07-14 11:56 | PD.CONS ---
Consult Service Palliative Care . Consult Requested By ADAN Matthew . Primary Care Physician No Primary Care Physician Reason for Consultation a. To assist with evaluation and management of symptoms including: pain, dyspnea, hypotension. b. To assist medical decision maker(s) with: better understanding of current medical conditions; weighing benefits/burdens of medical treatment options; making medical treatment decisions. . HPI History of Present Illness Mr. Flanagan is a 62 year old male with past medical history of coronary artery disease, myocardial infarction (1995), hypertension, depression, anxiety and alcoholism. Patient presented to [facility] on 06/28/17 for evaluation of shortness of breath and lower extremity edema. Notes indicate patient was reporting he was poisoned when he ate at [email or web address]'s days prior. He was tachycardic on arrival, rate 160's. EKG revealed atrial fibrillation with RVR. CT chest was negative for pulmonary emboli, large right pleural effusion with consolidation of the right lower lobe. Patient was admitted with atrial fibrillation with RVR, cellulitis and pleural effusion. Pulmonology. Dr. Palacios was consulted. Cardiology, Dr. Krishnamurthy was consulted with medication recommendations to continue IV Diltiazem, add beta jocelyne and titrate as needed. EF of 30-35% with global hypokinesia, mild concentric left ventricular hypertrophy, mild mitral valve regurgitation. On 07/06/17, Patient was found to have right leg compartment syndrome and Dr. mR orthopedic surgery was consulted with recommendations to proceed with surgical evacuation of hematoma with fasciotomy right calf with wound vac placement for necrotizing fasciitis. Postoperatively the patient was admitted with ICU and intubated. He underwent emergent thoracentesis with removal of 2.2. liters, pathology negative for malignant cells. Psychiatry, Dr. Barfield was consulted and was deemed incapacitated. There are no notes or numbers referring to family or friends in any recent or past hospital records. Gastroenterology was consulted for GI bleed with plan for EGD/ colonoscopy. 07/10, colon biopsy positive invasive moderately differentiated adenocarcinoma. Patient also developed gross hematuria and Dr. Samuel, urology was consulted. At the time of consult there was no notable blood therefore no intervention recommended. Dr. Rivers oncology was consulted, patient critically ill not a candidate for treatment at this time. On 07/13/17, patient has asystolic arrest with ROSC 10 minutes. He was reintubated and placed on mech vent. on 07/14/17 chest xray revealed white out of right lung. He underwent bronchoscopy develeoped bradycardia and then asystole. ACLS was started with ROSC 3 minutes. Palliative care was consulted to assist with further clarification of treatment goals. At the time of my visit, patient is intubated on mech vent. Review of CM notes, [employer] was run and identified possible family Belkis Flanagan in [place], [place] [phone]. Madyson Crow LCSW left message at this number to determine if she is related. Will await return call. If no family identified may need to consider social work advantage assistance. For now recommend continued aggressive care and FULL CODE. Palliative care will continue to follow. . Function/Cognitive Trajectory Unknown. . Review of Systems ROS Limitations: Intubated, Unresponsive Constitutional: COMPLAINS OF: Fatigue, Pain, Generalized weakness Respiratory: COMPLAINS OF: Shortness of breath Cardiovascular: COMPLAINS OF: Dyspnea on Exertion, Lower Extremity Edema Hematologic/Lymphatics: COMPLAINS OF: Bruising Neurologic: COMPLAINS OF: Abnormal gait Psychiatric: COMPLAINS OF: Anxiety, Depression Other ROS: ROS per EMR review, unable to obtain from pt. Past Family Social History Coded Allergies: cefuroxime (Unverified Allergy, Unknown, 06/28/17) Past Medical History Anxiety disorder Depression CAD [place] in 1995, Hypertension Past Surgical History Tonsillectomy fasciotomy & wound vac placement right calf Reported Medications Reported Meds & Active Scripts Active . Current Medications Medications (Trade) Dose Ordered Sig/Zeinab Route Start Time Stop Time Status Last Admin (Tylenol) 650 mg Q4H PRN PO 06/28/17 17:15 (Zofran Inj) 4 mg Q6H PRN IVP 06/28/17 17:15 (Narcan Inj) 0.4 mg UNSCH PRN IV PUSH 06/28/17 17:15 (Mehnaz-Colace) 1 tab BID PO 06/28/17 21:00 07/09/17 22:12 (Mucinex Er) 600 mg BID PO 06/28/17 21:00 07/14/17 09:26 (Albumin 25% Inj) 25 gm Q12H IV 07/02/17 14:00 07/14/17 01:51 (Lanoxin) 0.25 mg DAILY PO 07/02/17 16:45 07/14/17 09:27 (Prinivil) 10 mg DAILY PO 07/05/17 09:00 Future hold 07/14/17 09:26 (Morphine Inj) 2 mg Q3H PRN IV PUSH 07/06/17 20:00 07/12/17 01:46 (Brethine Inj) 1 mg UNSCH PRN SQ 07/06/17 19:30 (NS Flush) 2 ml UNSCH PRN .XX 07/06/17 21:00 (NS Flush) 2 ml BID .XX 07/06/17 21:00 07/14/17 09:00 (Tylenol) 650 mg Q6H PRN PO 07/06/17 21:00 (Duoneb Neb) 1 ampule Q2HR NEB PRN INH 07/06/17 21:00 07/14/17 10:45 Miscellaneous Information 1 Q361D XX 07/06/17 21:00 (Chlorhexidine 2% Cloth) Taper DAILY@04 TOP 07/07/17 04:00 07/03/18 03:59 07/08/17 05:31 (Chlorhexidine 2% Cloth) 3 pack UNSCH PRN TOP 07/06/17 21:00 (Milk Of Magnesia Liq) 30 ml Q12H PRN PO 07/06/17 21:00 (Senokot) 17.2 mg Q12H PRN PO 07/06/17 21:00 (Dulcolax Supp) 10 mg DAILY PRN RECTAL 07/06/17 21:00 (Lactulose Liq) 30 ml DAILY PRN PO 07/06/17 21:00 (Lasix Inj) 40 mg BID@09,18 IV PUSH 07/07/17 09:00 07/14/17 09:27 (K-Lyte Cl Eff) 25 meq Q12HR PO 07/07/17 09:00 07/14/17 09:26 Miscellaneous Information D/C ICU ELECTROLYTE ORDERS... UNSCH PRN .XX 07/07/17 18:30 Miscellaneous Information ICU - CALL ORDERING PHYSIC... UNSCH PRN .XX 07/07/17 18:30 Potassium Chloride 100 ml @ 25 mls/hr UNSCH PRN IV 07/07/17 18:30 07/11/17 07:40 (K-Lyte Cl Eff) 50 meq UNSCH PRN PO 07/07/17 18:30 07/14/17 04:27 Potassium Chloride 100 ml @ 50 mls/hr UNSCH PRN IV 07/07/17 18:30 Magnesium Sulfate 4 gm/Sodium Chloride 108 ml @ 54 mls/hr UNSCH PRN IV 07/07/17 18:30 Magnesium Sulfate 2 gm/Sodium Chloride 104 ml @ 52 mls/hr UNSCH PRN IV 07/07/17 18:30 (Mag-Ox) 800 mg UNSCH PRN PO 07/07/17 18:30 Sodium Phosphate 30 mmol/Sodium Chloride 260 ml @ 43.333 mls/ hr UNSCH PRN IV 07/07/17 18:30 (K-Phos) 2,000 mg UNSCH PRN PO 07/07/17 18:30 Potassium Phosphate 30 mmol/ Sodium Chloride 260 ml @ 43.333 mls/ hr UNSCH PRN IV 07/07/17 18:30 07/07/17 18:55 (Ativan Inj) 1 mg Q4H PRN IV PUSH 07/08/17 09:15 07/13/17 22:18 (Protonix Inj) 40 mg Q12H IV PUSH 07/08/17 16:00 07/14/17 03:13 (Peridex 0.12% Liq) 15 ml BID@08,20 MT 07/09/17 20:00 07/14/17 08:00 (Coreg) 25 mg Q12HR PO 07/12/17 10:00 07/14/17 09:26 Propofol 100 ml @ 4.41 mls/hr TITRATE PRN IV 07/13/17 18:15 07/14/17 04:28 Norepinephrine Bitartrate 250 ml @ 7.5 mls/hr TITRATE PRN IV 07/14/17 01:30 07/14/17 01:51 Family History Asked and denied. Substance Use Tobacco: Alcohol: Prescription med abuse: Illicits: Psychosocial History Per EMR review: Single. 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 Homeless. No documented family or friends in EMR dating back to 2005. . Spiritual/Cultural Factors None. . Living Will: Never completed Health Care Surrogate: Never completed Durable Power of Yard Labor Supervisor: Never completed Health Care Surrogate(s): Patient is incapacitated to make his own health care decision, he is not expected to regain capacity. Attempting to identify family or friends to make medical decisions. Review of CM notes, ACC[employer] was run and identified possible family Belkis Flanagan in [place], [place] [phone]. Madyson Crow LCSW left message at this number to determine if she is related. Will await return call. If no family identified may need to consider social work advantage assistance. Today's verbally stated goals: Patient is incapacitated to make his own health care decision, he is not expected to regain capacity. . Family/friends goals: [employer] was run and identified possible family Belkis Flanagan in [place], [place] [phone]. Madyson Crow LCSW left message at this number to determine if she is related. Ethical and Legal Issues Patient is incapacitated to make his own health care decision, he is not expected to regain capacity. Attempting to identify family or friends to make medical decisions. Review of CM notes, [employer] was run and identified possible family Belkis Flanagan in [place], [place] [phone]. Madyson Crow LCSW left message at this number to determine if she is related. Will await return call. If no family identified may need to consider social work advantage assistance. Physical Exam Vital Signs Date Time Temp Pulse Resp B/P (MAP) Pulse Ox O2 Delivery O2 Flow Rate FiO2 07/14/17 10:26 56 100 07/14/17 09:01 96 50 07/14/17 06:46 99.7 98 16 162/97 100 07/14/17 06:00 95 07/14/17 05:52 100.0 88 16 124/75 91 07/14/17 04:00 50 07/14/17 04:00 98 07/14/17 04:00 99.9 99 16 138/74 (95) 96 07/14/17 03:39 93 45 07/14/17 02:00 87 07/14/17 01:51 83 117/65 07/14/17 00:17 97 50 07/14/17 00:00 98.2 84 16 106/62 (77) 96 07/14/17 00:00 84 07/14/17 00:00 50 07/13/17 22:00 88 07/13/17 20:00 82 07/13/17 20:00 50 07/13/17 20:00 96.4 82 19 136/74 (94) 100 07/13/17 19:55 99 50 07/13/17 19:00 100 Mechanical Ventilator 50 07/13/17 17:11 100 100 07/13/17 16:00 98.4 103 20 110/60 (77) 99 07/13/17 12:00 97.9 106 29 116/76 (89) 07/14/17 07/15/17 19:00 07:00 Intake Total 650 ml Balance 650 ml Packed Cells 400 ml Blood Product IV Normal Saline Flush 250 ml Exam CONSTITUTIONAL/GENERAL: This is an adequately nourished patient, on mech vent. TUBES/LINES/DRAINS:ETT, OG, left IJ central line, a-line right wrist, bilateral soft wrist restraints, wound vac RLE, Art, SCDs. SKIN: No jaundice, rashes, or lesions. Ecchymoses on upper extremities. RLE dressing/ wound vac. Skin temperature appropriate. Not diaphoretic. HEAD: Atraumatic. Normocephalic. EYES: eyes closed. ENT: Unable to assess hearing. Nose without bleeding or purulent drainage. Throat difficult to visualize due to tubes. NECK: Trachea midline. CARDIOVASCULAR: Irregular. RESPIRATORY/CHEST: unlabored respirations on vent. Diminished breath sounds bilaterally, right > left. GASTROINTESTINAL: Abdomen soft, protuberant. Bowel sounds hypoactive. GENITOURINARY: Without palpable bladder distension. Art catheter in place. MUSCULOSKELETAL: Extremities with edema. LYMPHATICS: No palpable cervical or supraclavicular adenopathy. NEUROLOGICAL: Unresponsive. PSYCHIATRIC: Unresponsive. . Diagnostic Tests Laboratory Laboratory Tests Test 07/12/17 05:30 07/13/17 03:30 07/13/17 17:30 07/13/17 20:00 White Blood Count 13.3 TH/MM3 (4.0-11.0) 15.4 TH/MM3 (4.0-11.0) 13.5 TH/MM3 (4.0-11.0) Red Blood Count 2.62 MIL/MM3 (4.50-5.90) 3.07 MIL/MM3 (4.50-5.90) 2.86 MIL/MM3 (4.50-5.90) Hemoglobin 7.5 GM/DL (13.0-17.0) 8.5 GM/DL (13.0-17.0) 8.1 GM/DL (13.0-17.0) Hematocrit 22.9 % (39.0-51.0) 27.2 % (39.0-51.0) 25.4 % (39.0-51.0) Mean Corpuscular Volume 87.5 FL (80.0-100.0) 88.7 FL (80.0-100.0) 88.9 FL (80.0-100.0) Mean Corpuscular Hemoglobin 28.7 PG (27.0-34.0) 27.7 PG (27.0-34.0) 28.4 PG (27.0-34.0) Mean Corpuscular Hemoglobin Concent 32.8 % (32.0-36.0) 31.2 % (32.0-36.0) 32.0 % (32.0-36.0) Red Cell Distribution Width 18.0 % (11.6-17.2) 18.4 % (11.6-17.2) 18.1 % (11.6-17.2) Platelet Count 190 TH/MM3 (150-450) 235 TH/MM3 (150-450) 215 TH/MM3 (150-450) Mean Platelet Volume 9.7 FL (7.0-11.0) 9.1 FL (7.0-11.0) 9.7 FL (7.0-11.0) Blood Urea Nitrogen 16 MG/DL (7-18) 22 MG/DL (7-18) Creatinine 1.59 MG/DL (0.60-1.30) 1.35 MG/DL (0.60-1.30) Random Glucose 94 MG/DL (74-106) 172 MG/DL (74-106) Calcium Level 8.7 MG/DL (8.5-10.1) 9.2 MG/DL (8.5-10.1) Sodium Level 138 MEQ/L (136-145) 143 MEQ/L (136-145) Potassium Level 3.8 MEQ/L (3.5-5.1) 4.4 MEQ/L (3.5-5.1) Chloride Level 100 MEQ/L (98-107) 103 MEQ/L (98-107) Carbon Dioxide Level 30.8 MEQ/L (21.0-32.0) 36.0 MEQ/L (21.0-32.0) Anion Gap 7 MEQ/L (5-15) 4 MEQ/L (5-15) Estimat Glomerular Filtration Rate 44 ML/MIN (>89) 54 ML/MIN (>89) Neutrophils (%) (Auto) 87.5 % (16.0-70.0) Lymphocytes (%) (Auto) 3.6 % (9.0-44.0) Monocytes (%) (Auto) 7.9 % (0.0-8.0) Eosinophils (%) (Auto) 0.4 % (0.0-4.0) Basophils (%) (Auto) 0.6 % (0.0-2.0) Neutrophils # (Auto) 13.5 TH/MM3 (1.8-7.7) Lymphocytes # (Auto) 0.6 TH/MM3 (1.0-4.8) Monocytes # (Auto) 1.2 TH/MM3 (0-0.9) Eosinophils # (Auto) 0.1 TH/MM3 (0-0.4) Basophils # (Auto) 0.1 TH/MM3 (0-0.2) CBC Comment AUTO DIFF Differential Total Cells Counted 100 Neutrophils % (Manual) 86 % (16-70) Band Neutrophils % 3 % (0-6) Lymphocytes % 3 % (9-44) Monocytes % 7 % (0-8) Neutrophils # (Manual) 13.9 TH/MM3 (1.8-7.7) Myelocytes 1 % (0-0) Differential Comment FINAL DIFF MANUAL Platelet Estimate NORMAL (NORMAL) Platelet Morphology Comment ENLARGED (NORMAL) Basophilic Stippling FAINT (NORMAL) Prothrombin Time 11.3 SEC (9.8-11.6) Prothromb Time International Ratio 1.0 RATIO Phosphorus Level 5.2 MG/DL (2.5-4.9) Magnesium Level 2.6 MG/DL (1.5-2.5) Lactic Acid Level 2.4 mmol/L (0.4-2.0) Ammonia 45 MCMOL/L (11-32) Digoxin Level 1.9 NG/ML (0.8-2.0) Urine Color YELLOW (YELLW/STRAW) Urine Turbidity CLEAR (CLEAR) Urine pH 5.5 (5.0-8.5) Urine Specific [place] 1.011 (1.002-1.035) Urine Protein NEG mg/dL (NEG-TRACE) Urine Glucose (UA) NEG mg/dL (NEG) Urine Ketones NEG mg/dL (NEG) Urine Occult Blood MOD (NEG) Urine Nitrite NEG (NEG) Urine Bilirubin NEG (NEG) Urine Urobilinogen LESS THAN 2.0 MG/DL (LESS Urine Leukocyte Esterase MOD (NEG) Urine RBC 63 /hpf (0-3) Urine WBC 22 /hpf (0-5) Urine Squamous Epithelial Cells <1 /hpf (0-5) Urine Sperm RARE (NONE) Microscopic Urinalysis Comment CATH-CULTURE IND Test 07/13/17 20:36 07/13/17 22:15 07/14/17 03:20 07/14/17 05:52 Blood Gas Puncture Site ART LINE ART LINE Blood Gas Patient Temperature 98.6 98.6 Blood Gas HCO3 32 mmol/L (22-26) 32 mmol/L (22-26) Blood Gas Base Excess 5.8 mmol/L (-2-2) 8.7 mmol/L (-2-2) Blood Gas Oxygen Saturation 93 % (90-100) 90 % (90-100) Arterial Blood pH 7.31 (7.380-7.420) 7.51 (7.380-7.420) Arterial Blood Partial Pressure CO2 66 mmHg (38-42) 40 mmHg (38-42) Arterial Blood Partial Pressure O2 80 mmHg (61-120) 60 mmHg (61-120) Arterial Blood Oxygen Content 11.1 Vol % (12.0-20.0) 10.2 Vol % (12.0-20.0) Arterial Blood Carboxyhemoglobin 1.8 % (0-4) 2.1 % (0-4) Arterial Blood Methemoglobin 0.9 % (0-2) 1.1 % (0-2) Blood Gas Hemoglobin 8.4 G/DL (12.0-16.0) 8.0 G/DL (12.0-16.0) Oxygen Delivery Device VENTILATOR VENT Blood Gas Ventilator Setting COMMENT Blood Gas Inspired Oxygen 50 % 50 % Hemoglobin 8.1 GM/DL (13.0-17.0) 7.8 GM/DL (13.0-17.0) Hematocrit 25.5 % (39.0-51.0) 24.5 % (39.0-51.0) White Blood Count 15.8 TH/MM3 (4.0-11.0) Red Blood Count 2.83 MIL/MM3 (4.50-5.90) Mean Corpuscular Volume 86.4 FL (80.0-100.0) Mean Corpuscular Hemoglobin 27.7 PG (27.0-34.0) Mean Corpuscular Hemoglobin Concent 32.1 % (32.0-36.0) Red Cell Distribution Width 17.4 % (11.6-17.2) Platelet Count 266 TH/MM3 (150-450) Mean Platelet Volume 9.2 FL (7.0-11.0) Neutrophils (%) (Auto) 88.7 % (16.0-70.0) Lymphocytes (%) (Auto) 2.6 % (9.0-44.0) Monocytes (%) (Auto) 7.7 % (0.0-8.0) Eosinophils (%) (Auto) 0.6 % (0.0-4.0) Basophils (%) (Auto) 0.4 % (0.0-2.0) Neutrophils # (Auto) 14.0 TH/MM3 (1.8-7.7) Lymphocytes # (Auto) 0.4 TH/MM3 (1.0-4.8) Monocytes # (Auto) 1.2 TH/MM3 (0-0.9) Eosinophils # (Auto) 0.1 TH/MM3 (0-0.4) Basophils # (Auto) 0.1 TH/MM3 (0-0.2) CBC Comment DIFF FINAL Differential Comment Blood Urea Nitrogen 23 MG/DL (7-18) Creatinine 1.20 MG/DL (0.60-1.30) Random Glucose 113 MG/DL (74-106) Calcium Level 9.5 MG/DL (8.5-10.1) Phosphorus Level 1.2 MG/DL (2.5-4.9) Magnesium Level 2.3 MG/DL (1.5-2.5) Sodium Level 145 MEQ/L (136-145) Potassium Level 3.5 MEQ/L (3.5-5.1) Chloride Level 104 MEQ/L (98-107) Carbon Dioxide Level 34.5 MEQ/L (21.0-32.0) Anion Gap 7 MEQ/L (5-15) Estimat Glomerular Filtration Rate 61 ML/MIN (>89) Test 07/14/17 10:16 07/14/17 10:35 07/14/17 10:54 Blood Gas Puncture Site ART LINE Blood Gas Patient Temperature 98.6 Blood Gas HCO3 31 mmol/L (22-26) Blood Gas Base Excess 6.1 mmol/L (-2-2) Blood Gas Oxygen Saturation 68 % (90-100) Arterial Blood pH 7.41 (7.380-7.420) Arterial Blood Partial Pressure CO2 49 mmHg (38-42) Arterial Blood Partial Pressure O2 38 mmHg (61-120) Arterial Blood Oxygen Content 9.7 Vol % (12.0-20.0) Arterial Blood Carboxyhemoglobin 1.5 % (0-4) Arterial Blood Methemoglobin 1.1 % (0-2) Blood Gas Hemoglobin 10.2 G/DL (12.0-16.0) Oxygen Delivery Device AMBU BAG Blood Gas Liter Flow 15 L/M Blood Gas Inspired Oxygen 100 % Result Diagram: 07/14/17 0320 07/14/17 0320 Microbiology Microbiology Date/Time Source Procedure Growth Status 07/13/17 20:00 Urine Catheterized Urine Urine Culture Pending Received Imaging Last Impressions Chest X-Ray 07/14/17 0000 Signed Impressions: Service Date/Time: Friday, July 14, 2017 09:17 - CONCLUSION: 1. Complete opacification right hemithorax. Mucous plugging would be a consideration. This is new when compared with the prior exam. Keaton Jay MD CT Angiography 07/13/17 0000 Signed Impressions: Service Date/Time: Thursday, July 13, 2017 18:43 - CONCLUSION: No evidence of pulmonary embolism Cole Saleh MD Abdomen/Pelvis CT 07/10/17 0000 Signed Impressions: Service Date/Time: Monday, July 10, 2017 20:38 - CONCLUSION: 1. Bilateral pleural effusions and lower lobe consolidation, right greater than left. 2. Distended urinary bladder with smooth margins and no focal opacities within the lumen. 3. No evidence of hydronephrosis. 4. No dilated loops of small bowel. Gas is seen in the lumen of the colon down to the level of the rectum. Linwood Kramer MD Lower Extremity Ultrasound 07/06/17 0000 Signed Impressions: Service Date/Time: Thursday, July 06, 2017 13:20 - CONCLUSION: 1. Probable large hematoma in the right calf this measures at least 36 x 5 x 7.6 cm. Please see above discussion. Srikanth Ware MD . Procedures * 07/14/17 - bronchoscopy with asystolic arrest ROSC 3 minutes * 07/13/17 - asystolic arrest, intubated ROSC 10 minutes * 07/14/17 - Arterial line placed right radial * 07/11/17 - extubated * 07/10/17 - EGD/ colonoscopy. Colon biopsy positive mod diff adenocarcinoma. * 07/09/17 - reintubated, I & D of right calf with partial closure * 07/07/17 - extubated * 07/06/17 - thoracentesis for removal of 2.2. liters. * 07/06/17 - intubated postoperatively * 07/06/17 - evacuation of hematoma with fasciotomy right calf with wound vac placement for necrotizing fasciitis. . Patient/Family Conference Present at Family Conference: No known family. Issues Discussed: * Palliative care role, purpose, approach * Additional medical, psychosocial, and spiritual history * Patients general health, functional status, and cognitive changes in the months leading up to the current hospitalization * Patient/family understanding of the current medical problems * Patient/family understanding of prognosis * Patients goals of care as best understood from advance directives and/or conversations and/or values * Current medical treatment options and benefits/burdens of those options * Likely scenarios comparing ongoing aggressive care with a transition to comfort measures only * Questions answered to the best of my ability * Palliative care contact information provided Assessment and Plan Disease Oriented Problem List: (1) Asystole (2) Acute respiratory failure (3) Necrotizing fasciitis (4) Compartment syndrome of lower extremity (5) Atrial fibrillation with RVR (6) Morbid obesity (7) Cardiomyopathy (8) Unspecified psychosis (9) Cellulitis (10) Colon cancer Comment: invasive moderately differentiated adenocarcinoma of colon . (11) Acute renal insufficiency Symptom Scale: (1) Pain 0-10 Scale: Unable to quantify (2) Dyspnea 0-10 Scale: Unable to quantify Comment: on mech vent FiO2 100%, PEEP 10. (3) Hypotension 0-10 Scale: Unable to quantify Pertinent Non-Medical Issues Psychosocial: Single. homeless. Unknown family. Spiritual: None. Legal:Patient is incapacitated to make his own health care decision, he is not expected to regain capacity. Attempting to identify family or friends to make medical decisions. Review of CM notes, ACCURINTS was run and identified possible family Belkis Flanagan in [place] [phone]. Madyson Crow LCSW left message at this number to determine if she is related. Will await return call. If no family identified may need to consider social work advantage assistance. Ethical issues impacting care: No known concerns at this time. . Important Contacts No identified family at this time. . Prognosis Overall poor prognosis. . Code Status: Full Code Plan * Patient is incapacitated to make his own health care decision, he is not expected to regain capacity. Attempting to identify family or friends to make medical decisions. Review of CM notes, ACCURINTS was run and identified possible family Belkis [place]an[place] in [place] [phone]. Maydson Crow LCSW left message at this number to determine if she is related. Will await return call. If no family identified may need to consider social work advantage assistance. * FULL CODE * Palliative care was consulted to assist with further clarification of treatment goals. At the time of my visit, patient is intubated on mech vent. Review of CM notes, ACCURINTS was run and identified possible family Belkis Flanagan in [place] [phone]. Madyson Crow LCSW left message at this number to determine if she is related. Will await return call. If no family identified may need to consider social work advantage assistance. For now recommend continued aggressive care and FULL CODE. * SYMPTOMS: pain: due to necrotizing fasciitis, recent asystolic arrest x 2, colon cancer, prolonged hospital course, bedbound status, etc. Unresponsive. No obvious signs of pain. Dyspnea: on mech vent, FiO2 100%, PEEP 15. Hypotension: on Levo. No new medication recommendations at this time. * Palliative care will continue to follow to assist with further clarification of treatment goals once legal decision maker has been identified. . Thank you for the opportunity to participate in the care of Mr. Flanagan. Arlen Aguiar Jul 14, 2017 11:56
[2017-07-14] MEDS ORDERED: RESP: ALBUTEROL 2.5 MG/IPRATROPIUM 0.5 MG NEB (PRN) NEB (12:00)
[2017-07-14 12:08] LABS: HEMATOCRIT 30.1 % (39.0-51.0); REVIEW FLAG FINAL
[2017-07-14] MEDS ORDERED: LIDOCAINE HCL 1% 50 ML VIAL INFIL ONE (12:30)
[2017-07-14] MEDS: MILRINONE INJ 20 MG in SODIUM CHLORIDE 0.9% INJ 80 ML IV SCH ×3 (12:49→23:03)
--- NOTE | 2017-07-14 13:56 | PD.PROCEDR ---
Procedure Note Procedure Procedure: Fiberoptic Bronchoscopy Diagnosis: Mucus plugging complete opacification heme right hemithorax Indications: Opacification right hemithorax Consent: Emergent Anesthesia: [ ] Description of the Procedure: The patient was sedated and mechanically ventilated. The patient was placed on 100% FIO2 and a volume control mode of ventilation. The fiberoptic bronchoscopy was inserted via ETT. The trachea, right mainstem bronchi was evaluated. The endobronchial anatomy was normal. Procedure was abruptly discontinued 2/2 hypoxia Findings: Mucus plugging on the right The patient did not tolerated the procedure well with hemodynamic instability or hypoxia, immediately upon introduction of the fiberopticscope, into ETT, advance to right mainstem, patient asystolic-> cardiac arrest, with ROSC in 3 mins. A chest x-ray has been ordered. I personally performed the procedure. Mirta Viveros MD Jul 14, 2017 13:56
--- NOTE | 2017-07-14 14:41 | HHI.GIFU ---
Subjective Remarks Resting in bed. Sedated on vent. He coded yesterday, required emergent intubation with mechanical ventilation. He was getting a bronchoscopy earlier today and coded again. He is currently sedated on vent. Palliative care consulted. (Roxi Rea) Objective Vitals I&O Vital Signs Date Time Temp Pulse Resp B/P (MAP) Pulse Ox O2 Delivery O2 Flow Rate FiO2 07/14/17 13:04 116 154/98 07/14/17 12:49 106 128/70 07/14/17 11:09 100 100 07/14/17 10:26 56 100 07/14/17 09:01 96 50 07/14/17 06:46 99.7 98 16 162/97 100 07/14/17 06:00 95 07/14/17 05:52 100.0 88 16 124/75 91 07/14/17 04:00 50 07/14/17 04:00 98 07/14/17 04:00 99.9 99 16 138/74 (95) 96 07/14/17 03:39 93 45 07/14/17 02:00 87 07/14/17 01:51 83 117/65 07/14/17 00:17 97 50 07/14/17 00:00 98.2 84 16 106/62 (77) 96 07/14/17 00:00 84 07/14/17 00:00 50 07/13/17 22:00 88 07/13/17 20:00 82 07/13/17 20:00 50 07/13/17 20:00 96.4 82 19 136/74 (94) 100 07/13/17 19:55 99 50 07/13/17 19:00 100 Mechanical Ventilator 50 07/13/17 17:11 100 100 07/13/17 16:00 98.4 103 20 110/60 (77) 99 I/O 07/13/17 07/13/17 07/13/17 07/14/17 07/14/17 07/14/17 07:00 15:00 23:00 07:00 15:00 23:00 Intake Total 240 ml 1660 ml 652 ml 650 ml Output Total 1150 ml 3200 ml 4350 ml Balance -910 ml -1540 ml -3698 ml 650 ml Intake Oral 240 ml 960 ml IV Total 700 ml 92 ml Packed Cells 400 ml 400 ml Blood Product IV Normal Saline Flush 40 ml 250 ml Other 120 ml Output Urine Total 1100 ml 3200 ml 4200 ml Gastric Drainage Total 150 ml Drainage Total 50 ml 0 ml # Bowel Movements 2 6 3 Laboratory Laboratory Tests Test 07/13/17 17:30 07/13/17 20:00 07/13/17 20:36 07/13/17 22:15 White Blood Count 13.5 Red Blood Count 2.86 Hemoglobin 8.1 8.1 Hematocrit 25.4 25.5 Mean Corpuscular Volume 88.9 Mean Corpuscular Hemoglobin 28.4 Mean Corpuscular Hemoglobin Concent 32.0 Red Cell Distribution Width 18.1 Platelet Count 215 Mean Platelet Volume 9.7 Prothrombin Time 11.3 Prothromb Time International Ratio 1.0 Blood Urea Nitrogen 22 Creatinine 1.35 Random Glucose 172 Calcium Level 9.2 Phosphorus Level 5.2 Magnesium Level 2.6 Sodium Level 143 Potassium Level 4.4 Chloride Level 103 Carbon Dioxide Level 36.0 Anion Gap 4 Estimat Glomerular Filtration Rate 54 Lactic Acid Level 2.4 Ammonia 45 Digoxin Level 1.9 Urine Color YELLOW Urine Turbidity CLEAR Urine pH 5.5 Urine Specific Hanna 1.011 Urine Protein NEG Urine Glucose (UA) NEG Urine Ketones NEG Urine Occult Blood MOD Urine Nitrite NEG Urine Bilirubin NEG Urine Urobilinogen LESS THAN 2.0 Urine Leukocyte Esterase MOD Urine RBC 63 Urine WBC 22 Urine Squamous Epithelial Cells <1 Urine Sperm RARE Microscopic Urinalysis Comment CATH-CULTURE IND Blood Gas Puncture Site ART LINE Blood Gas Patient Temperature 98.6 Blood Gas HCO3 32 Blood Gas Base Excess 5.8 Blood Gas Oxygen Saturation 93 Arterial Blood pH 7.31 Arterial Blood Partial Pressure CO2 66 Arterial Blood Partial Pressure O2 80 Arterial Blood Oxygen Content 11.1 Arterial Blood Carboxyhemoglobin 1.8 Arterial Blood Methemoglobin 0.9 Blood Gas Hemoglobin 8.4 Oxygen Delivery Device VENTILATOR Blood Gas Ventilator Setting COMMENT Blood Gas Inspired Oxygen 50 Test 07/14/17 03:20 07/14/17 05:52 07/14/17 10:16 07/14/17 10:35 White Blood Count 15.8 Red Blood Count 2.83 Hemoglobin 7.8 Hematocrit 24.5 Mean Corpuscular Volume 86.4 Mean Corpuscular Hemoglobin 27.7 Mean Corpuscular Hemoglobin Concent 32.1 Red Cell Distribution Width 17.4 Platelet Count 266 Mean Platelet Volume 9.2 Neutrophils (%) (Auto) 88.7 Lymphocytes (%) (Auto) 2.6 Monocytes (%) (Auto) 7.7 Eosinophils (%) (Auto) 0.6 Basophils (%) (Auto) 0.4 Neutrophils # (Auto) 14.0 Lymphocytes # (Auto) 0.4 Monocytes # (Auto) 1.2 Eosinophils # (Auto) 0.1 Basophils # (Auto) 0.1 CBC Comment DIFF FINAL Differential Comment Blood Urea Nitrogen 23 Creatinine 1.20 Random Glucose 113 Calcium Level 9.5 Phosphorus Level 1.2 Magnesium Level 2.3 Sodium Level 145 Potassium Level 3.5 Chloride Level 104 Carbon Dioxide Level 34.5 Anion Gap 7 Estimat Glomerular Filtration Rate 61 Blood Gas Puncture Site ART LINE ART LINE Blood Gas Patient Temperature 98.6 98.6 Blood Gas HCO3 32 31 Blood Gas Base Excess 8.7 6.1 Blood Gas Oxygen Saturation 90 68 Arterial Blood pH 7.51 7.41 Arterial Blood Partial Pressure CO2 40 49 Arterial Blood Partial Pressure O2 60 38 Arterial Blood Oxygen Content 10.2 9.7 Arterial Blood Carboxyhemoglobin 2.1 1.5 Arterial Blood Methemoglobin 1.1 1.1 Blood Gas Hemoglobin 8.0 10.2 Oxygen Delivery Device VENT AMBU BAG Blood Gas Ventilator Setting Blood Gas Inspired Oxygen 50 100 Blood Gas Liter Flow 15 Prothrombin Time 11.2 Prothromb Time International Ratio 1.0 Test 07/14/17 10:54 07/14/17 11:05 Blood Gas Puncture Site ART LINE Blood Gas Patient Temperature 98.6 Blood Gas HCO3 32 Blood Gas Base Excess 7.6 Blood Gas Oxygen Saturation 98 Arterial Blood pH 7.44 Arterial Blood Partial Pressure CO2 48 Arterial Blood Partial Pressure O2 321 Arterial Blood Oxygen Content 14.1 Arterial Blood Carboxyhemoglobin 1.5 Arterial Blood Methemoglobin 0.9 Blood Gas Hemoglobin 9.7 Oxygen Delivery Device VENTILATOR Blood Gas Ventilator Setting PC/AC Blood Gas Inspired Oxygen 100 Hemoglobin 9.6 Hematocrit 30.1 Date/Time Source Procedure Growth Status 06/28/17 16:51 Blood Peripheral Aerobic Blood Culture - Final NO GROWTH IN 5 DAYS Complete 06/28/17 16:51 Blood Peripheral Anaerobic Blood Culture - Final NO GROWTH IN 5 DAYS Complete 07/07/17 01:00 Fluid Pleural Fluid Fungal Smear - Final NO FUNGAL ELEMENTS SEEN. Resulted 07/07/17 01:00 Fluid Pleural Fluid Fungal Culture - Preliminary NO GROWTH IN 1 WEEK Resulted 07/08/17 15:00 Stool Stool Stool Occult Blood (AMRSHAL) - Final HEMOCCULT NEGATIVE Complete 07/13/17 20:00 Urine Catheterized Urine Urine Culture - Preliminary NO GROWTH IN 24 HOURS. Resulted Imaging Last Impressions Chest X-Ray 07/14/17 0000 Signed Impressions: Service Date/Time: Friday, July 14, 2017 10:22 - CONCLUSION: Extensive left lung consolidation and likely effusion. Cole Saleh MD CT Angiography 07/13/17 0000 Signed Impressions: Service Date/Time: Thursday, July 13, 2017 18:43 - CONCLUSION: No evidence of pulmonary embolism Cole Saleh MD Abdomen/Pelvis CT 07/10/17 0000 Signed Impressions: Service Date/Time: Monday, July 10, 2017 20:38 - CONCLUSION: 1. Bilateral pleural effusions and lower lobe consolidation, right greater than left. 2. Distended urinary bladder with smooth margins and no focal opacities within the lumen. 3. No evidence of hydronephrosis. 4. No dilated loops of small bowel. Gas is seen in the lumen of the colon down to the level of the rectum. Linwood Kramer MD Lower Extremity Ultrasound 07/06/17 0000 Signed Impressions: Service Date/Time: Thursday, July 06, 2017 13:20 - CONCLUSION: 1. Probable large hematoma in the right calf this measures at least 36 x 5 x 7.6 cm. Please see above discussion. Srikanth Ware MD Physical Exam HEENT: Normocephalic; atraumatic CHEST: OETT to vent. Course breath sounds CARDIAC: Irregular, on vasopressors ABDOMEN: Soft, obese, mildly distended, bowel sounds are present EXTREMITIES: Gen. edema. Drsg with wound vac rle SKIN: Normal; no rash; no jaundice. 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 (Roxi Rea) Assessment and Plan Plan ASSESSMENT - Lower GIB. S/P Incomplete colonoscopy (07/09/17)---> Normal EGD. Incomplete colonoscopy secondary to poor bowel prep. S/P Rpt. Colonoscopy (07/10/17)---> Mass in the hepatic flexure most likely consistent with cancer biopsy was done 3 polyps in the ascending colon removed by snare, Large polyp in the sigmoid removed by snare. 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 Not currently having active bleeding. S/P 7 units of PRBC. HH this am was .04/09.. - Hepatic flexure mass. Pathology pending. CEA 1.0. CT Abdomen and pelvis with IV contrast (07/10/17)---> Bilateral pleural effusions and lower lobe consolidation, right greater than left, distended urinary bladder with smooth margins and no focal opacities within the lumen, no evidence of hydronephrosis, no dilated loops of small bowel, gas is seen in the lumen of the colon down to the level of the rectum. Pathology with invasive moderately differentiated adenocarcinoma. Oncology/GS following. - Anemia. EGD/Colonoscopy as above. S/P 7 units PRBC. .. - Code blue x 2. Once yesterday, once today. Intubated on mechanical ventilator. on pressors. - New onset AF rate controlled, per CCM, Cardiology following- rate control - Acute hypoxemic respiratory failure, right pleural effusion. Pt was extubated , but required reintubation yesterday when he coded. - Right calf hematoma, s/p fasciotomy. Drsg d/i with wound vac, ortho following. - Hematuria, painful urination - Hematuria resolved. Urology following PLAN - Okay for TF from GI standpoint. - Labor Representative evaluation for TF recommendations - Monitor HH - Transfuse as necessary - GS following - Oncology following - Palliative care consulted. - GI will sign off, please reconsult as needed - Patient seen and examined by Dr. Koch and myself and this note is written on her behalf. (Roxi Rea) Roxi Rea Jul 14, 2017 14:40 Reyna Koch MD Jul 14, 2017 19:07
--- NOTE | 2017-07-14 15:35 | HHI.HCPN ---
Spoke with Belkis Flanagan. She reports she HAS NO RELATION to patient. States her only has 1 brother and it is not the patient. At this point, given no further family identified via accurints, may need social work advantage. Madyson Nash, KIER OPERATOR Jul 14, 2017 15:35
--- NOTE | 2017-07-14 16:26 | HHI.PR ---
Subjective Remarks 62 YO Obese WM mild SOB " My body is poisoned, nothing wrong with my Heart" Echo EF 30-35 % RVSP 41 Events noted had cardiac arrest On Vent has atelactesis Sedated with Diprivan On Nimbex and Levophed Objective Vital Signs Vital Signs Date Time Temp Pulse Resp B/P (MAP) Pulse Ox O2 Delivery O2 Flow Rate FiO2 07/14/17 13:04 116 154/98 07/14/17 12:49 106 128/70 07/14/17 11:09 100 100 07/14/17 10:26 56 100 07/14/17 09:01 96 50 07/14/17 07:00 100 Mechanical Ventilator 50 07/14/17 06:46 99.7 98 16 162/97 100 07/14/17 06:00 95 07/14/17 05:52 100.0 88 16 124/75 91 07/14/17 04:00 50 07/14/17 04:00 98 07/14/17 04:00 99.9 99 16 138/74 (95) 96 07/14/17 03:39 93 45 07/14/17 02:00 87 07/14/17 01:51 83 117/65 07/14/17 00:17 97 50 07/14/17 00:00 98.2 84 16 106/62 (77) 96 07/14/17 00:00 84 07/14/17 00:00 50 07/13/17 22:00 88 07/13/17 20:00 82 07/13/17 20:00 50 07/13/17 20:00 96.4 82 19 136/74 (94) 100 07/13/17 19:55 99 50 07/13/17 19:00 100 Mechanical Ventilator 50 07/13/17 17:11 100 100 I/O 07/13/17 07/13/17 07/13/17 07/14/17 07/14/17 07/14/17 07:00 15:00 23:00 07:00 15:00 23:00 Intake Total 240 ml 1660 ml 652 ml 650 ml Output Total 1150 ml 3200 ml 4350 ml Balance -910 ml -1540 ml -3698 ml 650 ml Intake Oral 240 ml 960 ml IV Total 700 ml 92 ml Packed Cells 400 ml 400 ml Blood Product IV Normal Saline Flush 40 ml 250 ml Other 120 ml Output Urine Total 1100 ml 3200 ml 4200 ml Gastric Drainage Total 150 ml Drainage Total 50 ml 0 ml # Bowel Movements 2 6 3 Result Diagram: 07/14/17 1105 07/14/17 0320 Objective Remarks GENERAL: Obese Wm mild sob SKIN: Warm and dry. HEAD: Normocephalic. EYES: No scleral icterus. No injection or drainage. NECK: Supple, trachea midline. No JVD or lymphadenopathy. CARDIOVASCULAR: Regular rate and rhythm without murmurs, gallops, or rubs. RESPIRATORY: Breath sounds equal bilaterally. No accessory muscle use. Decreased BS at bases GASTROINTESTINAL: Abdomen soft, non-tender, nondistended. MUSCULOSKELETAL: No cyanosis, ++ edema. BACK: Nontender without obvious deformity. No CVA tenderness. A/P Assessment and Plan Bilat Pleural effusion CHF CMP AF PHTN ETOH use S/P Compartment release rright calf. VDRF S/P Cardiac arrest PLAN: Vent support Sedation with Diprivan On Nimbex Levophed to support BP Critical care managing, I will sign off, available prn. Lacho Palacios MD Jul 14, 2017 16:26
[2017-07-14] MEDS: RESP: ALBUTEROL 2.5 MG/IPRATROPIUM 0.5 MG NEB (SCH) NEB ×2 (16:40→20:36)
[2017-07-14] MEDS: RESP: ACETYLCYSTEINE 20% 30 ML NEB NEB SCH ×2 (16:40→20:36)
--- NOTE | 2017-07-14 16:48 | HHI.PR ---
Subjective Subjective Notes Intubated/Sedated Objective Vitals/I&O Vital Signs Date Time Temp Pulse Resp B/P (MAP) Pulse Ox O2 Delivery O2 Flow Rate FiO2 07/14/17 16:31 103 170/89 07/14/17 11:09 100 100 07/14/17 07:00 Mechanical Ventilator 07/14/17 06:46 99.7 16 07/13/17 09:09 4.00 Labs Laboratory Tests Test 07/13/17 17:30 07/13/17 20:00 07/13/17 20:36 07/13/17 22:15 White Blood Count 13.5 Red Blood Count 2.86 Hemoglobin 8.1 8.1 Hematocrit 25.4 25.5 Mean Corpuscular Volume 88.9 Mean Corpuscular Hemoglobin 28.4 Mean Corpuscular Hemoglobin Concent 32.0 Red Cell Distribution Width 18.1 Platelet Count 215 Mean Platelet Volume 9.7 Prothrombin Time 11.3 Prothromb Time International Ratio 1.0 Blood Urea Nitrogen 22 Creatinine 1.35 Random Glucose 172 Calcium Level 9.2 Phosphorus Level 5.2 Magnesium Level 2.6 Sodium Level 143 Potassium Level 4.4 Chloride Level 103 Carbon Dioxide Level 36.0 Anion Gap 4 Estimat Glomerular Filtration Rate 54 Lactic Acid Level 2.4 Ammonia 45 Digoxin Level 1.9 Urine Color YELLOW Urine Turbidity CLEAR Urine pH 5.5 Urine Specific Gilbert 1.011 Urine Protein NEG Urine Glucose (UA) NEG Urine Ketones NEG Urine Occult Blood MOD Urine Nitrite NEG Urine Bilirubin NEG Urine Urobilinogen LESS THAN 2.0 Urine Leukocyte Esterase MOD Urine RBC 63 Urine WBC 22 Urine Squamous Epithelial Cells <1 Urine Sperm RARE Microscopic Urinalysis Comment CATH-CULTURE IND Blood Gas Puncture Site ART LINE Blood Gas Patient Temperature 98.6 Blood Gas HCO3 32 Blood Gas Base Excess 5.8 Blood Gas Oxygen Saturation 93 Arterial Blood pH 7.31 Arterial Blood Partial Pressure CO2 66 Arterial Blood Partial Pressure O2 80 Arterial Blood Oxygen Content 11.1 Arterial Blood Carboxyhemoglobin 1.8 Arterial Blood Methemoglobin 0.9 Blood Gas Hemoglobin 8.4 Oxygen Delivery Device VENTILATOR Blood Gas Ventilator Setting COMMENT Blood Gas Inspired Oxygen 50 Test 07/14/17 03:20 07/14/17 05:52 07/14/17 10:16 07/14/17 10:35 White Blood Count 15.8 Red Blood Count 2.83 Hemoglobin 7.8 Hematocrit 24.5 Mean Corpuscular Volume 86.4 Mean Corpuscular Hemoglobin 27.7 Mean Corpuscular Hemoglobin Concent 32.1 Red Cell Distribution Width 17.4 Platelet Count 266 Mean Platelet Volume 9.2 Neutrophils (%) (Auto) 88.7 Lymphocytes (%) (Auto) 2.6 Monocytes (%) (Auto) 7.7 Eosinophils (%) (Auto) 0.6 Basophils (%) (Auto) 0.4 Neutrophils # (Auto) 14.0 Lymphocytes # (Auto) 0.4 Monocytes # (Auto) 1.2 Eosinophils # (Auto) 0.1 Basophils # (Auto) 0.1 CBC Comment DIFF FINAL Differential Comment Blood Urea Nitrogen 23 Creatinine 1.20 Random Glucose 113 Calcium Level 9.5 Phosphorus Level 1.2 Magnesium Level 2.3 Sodium Level 145 Potassium Level 3.5 Chloride Level 104 Carbon Dioxide Level 34.5 Anion Gap 7 Estimat Glomerular Filtration Rate 61 Blood Gas Puncture Site ART LINE ART LINE Blood Gas Patient Temperature 98.6 98.6 Blood Gas HCO3 32 31 Blood Gas Base Excess 8.7 6.1 Blood Gas Oxygen Saturation 90 68 Arterial Blood pH 7.51 7.41 Arterial Blood Partial Pressure CO2 40 49 Arterial Blood Partial Pressure O2 60 38 Arterial Blood Oxygen Content 10.2 9.7 Arterial Blood Carboxyhemoglobin 2.1 1.5 Arterial Blood Methemoglobin 1.1 1.1 Blood Gas Hemoglobin 8.0 10.2 Oxygen Delivery Device VENT AMBU BAG Blood Gas Ventilator Setting Blood Gas Inspired Oxygen 50 100 Blood Gas Liter Flow 15 Prothrombin Time 11.2 Prothromb Time International Ratio 1.0 Test 07/14/17 10:54 07/14/17 11:05 Blood Gas Puncture Site ART LINE Blood Gas Patient Temperature 98.6 Blood Gas HCO3 32 Blood Gas Base Excess 7.6 Blood Gas Oxygen Saturation 98 Arterial Blood pH 7.44 Arterial Blood Partial Pressure CO2 48 Arterial Blood Partial Pressure O2 321 Arterial Blood Oxygen Content 14.1 Arterial Blood Carboxyhemoglobin 1.5 Arterial Blood Methemoglobin 0.9 Blood Gas Hemoglobin 9.7 Oxygen Delivery Device VENTILATOR Blood Gas Ventilator Setting PC/AC Blood Gas Inspired Oxygen 100 Hemoglobin 9.6 Hematocrit 30.1 Date/Time Source Procedure Growth Status 06/28/17 16:51 Blood Peripheral Aerobic Blood Culture - Final NO GROWTH IN 5 DAYS Complete 06/28/17 16:51 Blood Peripheral Anaerobic Blood Culture - Final NO GROWTH IN 5 DAYS Complete 07/07/17 01:00 Fluid Pleural Fluid Fungal Smear - Final NO FUNGAL ELEMENTS SEEN. Resulted 07/07/17 01:00 Fluid Pleural Fluid Fungal Culture - Preliminary NO GROWTH IN 1 WEEK Resulted 07/08/17 15:00 Stool Stool Stool Occult Blood (MARSHAL) - Final HEMOCCULT NEGATIVE Complete 07/13/17 20:00 Urine Catheterized Urine Urine Culture - Preliminary NO GROWTH IN 24 HOURS. Resulted Cardiovascular: Regular Lungs: Clear Abdomen: Non-tender, Other (obese) Extremities: Other (see below ) Narrative Exam LEFT lower leg Wound Vac in place A/P Problem List: (1) Pleural effusion ICD Codes: J90 - Pleural effusion, not elsewhere classified Status: Acute (2) Atrial fibrillation with RVR ICD Codes: I48.91 - Unspecified atrial fibrillation Status: Acute (3) Morbid obesity ICD Codes: E66.01 - Morbid (severe) obesity due to excess calories (4) Cardiomyopathy ICD Codes: I42.9 - Cardiomyopathy, unspecified (5) Unspecified psychosis ICD Codes: F29 - Unspecified psychosis not due to a substance or known physiological condition Assessment and Plan 62 year old male with multiple medical problems; s/p respiratory failure requiring intubated; s/p fasciotomy of LEFT leg; concern for colon mass in the hepatic flexure (concern for cancer) -Diet as tolerated -Pathology back---shows moderately differentiated adenocarcinoma -Patient was emergently intubated yesterday after a respiratory arrest; unstable at this point -Patient does have a poor performance status for resection -Palliative Care consult to help establish next of kin and goals of treatment -Discussed with KATHY Bazzi and Dr. Viveros Attending Statement patient seen at bedside colon ca, no evidence of metastatic dz will need to identify next of kin for further management high surgical risk Attestation The exam, history, and the medical decision-making described in the above note were completed with the assistance of the mid-level provider. I reviewed and agree with the findings presented. I attest that I had a [id number] encounter with the patient on the same day, and personally performed and documented my assessment and findings in the medical record. Krysten Glynn Jul 14, 2017 16:48 Zeb Campuzano MD Jul 17, 2017 23:13
--- NOTE | 2017-07-14 17:15 | PQ ---
Physician Query Response Document PATIENT: YULY ACEVEDO : 1955 ADMIT DATE: 06/28/2017 5:11 PM DISCH DATE: RESPONDING PROVIDER #: [place] QUERY TEXT: CHF Acuity and Type Congestive Heart Failure is documented in the Medical Record. Please document the type and acuity (in cludes probable or suspected) Such as: Type: -- Systolic -- Diastolic -- Combined -- Other, please specify Acuity: -- Acute -- Chronic -- Acute on chronic -- Other, please specify Also please document the underlying cause of the CHF (includes probable or suspected) The patient's Clinical Indicators include: CHF acute exacerbation on admission pleural effusion and new onset a fib Noted for cardiomyopathy ECHO 06/29/17 Left ventricular systolic function reduced and ej fx 30-35% Global hypokinesis LVH Mild mitral and tr icuspid valve regurgitation PA pressure 41.4 currently on carvedilol and isinopril Query created by: Cary Gannon on 07/08/2017 2:22 PM RESPONSE TEXT: Acute Systolic Heart failure Electronically signed by: Mirta Viveros MD 07/14/2017 5:10 PM
--- NOTE | 2017-07-14 17:38 | PD.CARD.PN ---
Subjective Subjective Remarks Intubated, sedated, recurrent episodes of hypoxemia and bradyarrhythmias Objective Medications Administered Medications Medications (Trade) Dose Ordered Sig/Zeinab Route PRN Reason Start Time Stop Time Status Last Admin Dose Admin Senna/Docusate Sodium (Mehnaz-Colace) 1 tab BID PO 06/28/17 21:00 07/09/17 22:12 Guaifenesin (Mucinex Er) 600 mg BID PO 06/28/17 21:00 07/14/17 09:26 Albumin Human (Albumin 25% Inj) 25 gm Q12H IV 07/02/17 14:00 07/14/17 15:06 Digoxin (Lanoxin) 0.25 mg DAILY PO 07/02/17 16:45 07/14/17 09:27 Lisinopril (Prinivil) 10 mg DAILY PO 07/05/17 09:00 Future hold 07/14/17 09:26 Morphine Sulfate (Morphine Inj) 2 mg Q3H PRN IV PUSH pain 1-10 07/06/17 20:00 07/12/17 01:46 Sodium Chloride (NS Flush) 2 ml BID .XX 07/06/17 21:00 07/14/17 09:00 Chlorhexidine Gluconate (Chlorhexidine 2% Cloth) Taper DAILY@04 TOP 07/07/17 04:00 07/03/18 03:59 07/08/17 05:31 Furosemide (Lasix Inj) 40 mg BID@,18 IV PUSH 07/07/17 09:00 07/14/17 09:27 Potassium Bicarb/ Potassium Chloride (K-Lyte Cl Eff) 25 meq Q12HR PO 07/07/17 09:00 07/14/17 09:26 Potassium Chloride 100 ml @ 25 mls/hr UNSCH PRN IV ELECTROLYTE REPLACEMENT 07/07/17 18:30 07/11/17 07:40 Potassium Bicarb/ Potassium Chloride (K-Lyte Cl Eff) 50 meq UNSCH PRN PO ELECTROLYTE REPLACEMENT 07/07/17 18:30 07/14/17 04:27 Potassium Phosphate 30 mmol/ Sodium Chloride 260 ml @ 43.333 mls/ hr UNSCH PRN IV ELECTROLYTE REPLACEMENT 07/07/17 18:30 07/07/17 18:55 Lorazepam (Ativan Inj) 1 mg Q4H PRN IV PUSH AGITATION AND/OR HALLUCINATION 07/08/17 09:15 07/13/17 22:18 Pantoprazole Sodium (Protonix Inj) 40 mg Q12H IV PUSH 07/08/17 16:00 07/14/17 15:06 Chlorhexidine Gluconate (Peridex 0.12% Liq) 15 ml BID@08,20 MT 07/09/17 20:00 07/14/17 08:00 Carvedilol (Coreg) 25 mg Q12HR PO 07/12/17 10:00 07/14/17 09:26 Propofol 100 ml @ 4.41 mls/hr TITRATE PRN IV SEDATION 07/13/17 18:15 07/14/17 15:20 Norepinephrine Bitartrate 250 ml @ 7.5 mls/hr TITRATE PRN IV Maintain MAP > 65 mmHg 07/14/17 01:30 07/14/17 16:31 Acetylcysteine (Mucomyst 20% Neb) 2 ml Q6HR NEB NEB 07/14/17 16:00 07/16/17 16:00 07/14/17 16:40 Milrinone Lactate 20 mg/Sodium Chloride 100 ml @ 16.92 mls/ hr Q5H55M IV 07/14/17 11:34 07/14/17 12:49 Albuterol/ Ipratropium (Duoneb Neb) 1 ampule Q6HR NEB NEB 07/14/17 12:00 07/14/17 16:40 Vital Signs / I&O Vital Signs Date Time Temp Pulse Resp B/P (MAP) Pulse Ox O2 Delivery O2 Flow Rate FiO2 07/14/17 16:41 100 100 07/14/17 16:31 103 170/89 07/14/17 13:04 116 154/98 07/14/17 12:49 106 128/70 07/14/17 11:09 100 100 07/14/17 10:26 56 100 07/14/17 10:00 116 07/14/17 09:01 96 50 07/14/17 08:00 99.9 103 16 174/98 (123) 100 07/14/17 08:00 82 07/14/17 08:00 50 07/14/17 07:00 100 Mechanical Ventilator 50 07/14/17 06:46 99.7 98 16 162/97 100 07/14/17 06:00 95 07/14/17 05:52 100.0 88 16 124/75 91 07/14/17 04:00 50 07/14/17 04:00 98 07/14/17 04:00 99.9 99 16 138/74 (95) 96 07/14/17 03:39 93 45 07/14/17 02:00 87 07/14/17 01:51 83 117/65 07/14/17 00:17 97 50 07/14/17 00:00 98.2 84 16 106/62 (77) 96 07/14/17 00:00 84 07/14/17 00:00 50 07/13/17 22:00 88 07/13/17 20:00 82 07/13/17 20:00 50 07/13/17 20:00 96.4 82 19 136/74 (94) 100 07/13/17 19:55 99 50 07/13/17 19:00 100 Mechanical Ventilator 50 I/O 07/13/17 07/13/17 07/13/17 07/14/17 07/14/17 07/14/17 07:00 15:00 23:00 07:00 15:00 23:00 Intake Total 240 ml 1660 ml 652 ml 650 ml Output Total 1150 ml 3200 ml 4350 ml Balance -910 ml -1540 ml -3698 ml 650 ml Intake Oral 240 ml 960 ml IV Total 700 ml 92 ml Packed Cells 400 ml 400 ml Blood Product IV Normal Saline Flush 40 ml 250 ml Other 120 ml Output Urine Total 1100 ml 3200 ml 4200 ml Gastric Drainage Total 150 ml Drainage Total 50 ml 0 ml # Bowel Movements 2 6 3 Physical Exam GENERAL: Intubated, unresponsive. SKIN: Warm and dry. HEAD: Normocephalic. EYES: No scleral icterus. No injection or drainage. NECK: Supple, trachea midline. No JVD or lymphadenopathy. CARDIOVASCULAR: Irreg, without murmurs, gallops, or rubs. RESPIRATORY: Breath sounds equal bilaterally. Few rhonchi, distant BS GASTROINTESTINAL: Abdomen soft, obese MUSCULOSKELETAL: No cyanosis, LE dressed Laboratory Laboratory Tests Test 07/13/17 20:00 07/13/17 20:36 07/13/17 22:15 07/14/17 03:20 Urine Color YELLOW Urine Turbidity CLEAR Urine pH 5.5 Urine Specific [place] 1.011 Urine Protein NEG mg/dL Urine Glucose (UA) NEG mg/dL Urine Ketones NEG mg/dL Urine Occult Blood MOD Urine Nitrite NEG Urine Bilirubin NEG Urine Urobilinogen LESS THAN 2.0 MG/DL Urine Leukocyte Esterase MOD Urine RBC 63 /hpf Urine WBC 22 /hpf Urine Squamous Epithelial Cells <1 /hpf Urine Sperm RARE Microscopic Urinalysis Comment CATH-CULTURE IND Blood Gas Puncture Site ART LINE Blood Gas Patient Temperature 98.6 Blood Gas HCO3 32 mmol/L Blood Gas Base Excess 5.8 mmol/L Blood Gas Oxygen Saturation 93 % Arterial Blood pH 7.31 Arterial Blood Partial Pressure CO2 66 mmHg Arterial Blood Partial Pressure O2 80 mmHg Arterial Blood Oxygen Content 11.1 Vol % Arterial Blood Carboxyhemoglobin 1.8 % Arterial Blood Methemoglobin 0.9 % Blood Gas Hemoglobin 8.4 G/DL Oxygen Delivery Device VENTILATOR Blood Gas Ventilator Setting COMMENT Blood Gas Inspired Oxygen 50 % Hemoglobin 8.1 GM/DL 7.8 GM/DL Hematocrit 25.5 % 24.5 % White Blood Count 15.8 TH/MM3 Red Blood Count 2.83 MIL/MM3 Mean Corpuscular Volume 86.4 FL Mean Corpuscular Hemoglobin 27.7 PG Mean Corpuscular Hemoglobin Concent 32.1 % Red Cell Distribution Width 17.4 % Platelet Count 266 TH/MM3 Mean Platelet Volume 9.2 FL Neutrophils (%) (Auto) 88.7 % Lymphocytes (%) (Auto) 2.6 % Monocytes (%) (Auto) 7.7 % Eosinophils (%) (Auto) 0.6 % Basophils (%) (Auto) 0.4 % Neutrophils # (Auto) 14.0 TH/MM3 Lymphocytes # (Auto) 0.4 TH/MM3 Monocytes # (Auto) 1.2 TH/MM3 Eosinophils # (Auto) 0.1 TH/MM3 Basophils # (Auto) 0.1 TH/MM3 CBC Comment DIFF FINAL Differential Comment Blood Urea Nitrogen 23 MG/DL Creatinine 1.20 MG/DL Random Glucose 113 MG/DL Calcium Level 9.5 MG/DL Phosphorus Level 1.2 MG/DL Magnesium Level 2.3 MG/DL Sodium Level 145 MEQ/L Potassium Level 3.5 MEQ/L Chloride Level 104 MEQ/L Carbon Dioxide Level 34.5 MEQ/L Anion Gap 7 MEQ/L Estimat Glomerular Filtration Rate 61 ML/MIN Test 07/14/17 05:52 07/14/17 10:16 07/14/17 10:35 10/4/17 10:54 Blood Gas Puncture Site ART LINE ART LINE ART LINE Blood Gas Patient Temperature 98.6 98.6 98.6 Blood Gas HCO3 32 mmol/L 31 mmol/L 32 mmol/L Blood Gas Base Excess 8.7 mmol/L 6.1 mmol/L 7.6 mmol/L Blood Gas Oxygen Saturation 90 % 68 % 98 % Arterial Blood pH 7.51 7.41 7.44 Arterial Blood Partial Pressure CO2 40 mmHg 49 mmHg 48 mmHg Arterial Blood Partial Pressure O2 60 mmHg 38 mmHg 321 mmHg Arterial Blood Oxygen Content 10.2 Vol % 9.7 Vol % 14.1 Vol % Arterial Blood Carboxyhemoglobin 2.1 % 1.5 % 1.5 % Arterial Blood Methemoglobin 1.1 % 1.1 % 0.9 % Blood Gas Hemoglobin 8.0 G/DL 10.2 G/DL 9.7 G/DL Oxygen Delivery Device VENT AMBU BAG VENTILATOR Blood Gas Ventilator Setting PC/AC Blood Gas Inspired Oxygen 50 % 100 % 100 % Blood Gas Liter Flow 15 L/M Prothrombin Time 11.2 SEC Prothromb Time International Ratio 1.0 RATIO Test 07/14/17 11:05 Hemoglobin 9.6 GM/DL Hematocrit 30.1 % Assessment and Plan Problem List: (1) Acute respiratory failure ICD Codes: J96.00 - Acute respiratory failure, unspecified whether with hypoxia or hypercapnia (2) Morbid obesity ICD Codes: E66.01 - Morbid (severe) obesity due to excess calories (3) Atrial fibrillation with RVR ICD Codes: I48.91 - Unspecified atrial fibrillation Status: Acute (4) Cardiomyopathy ICD Codes: I42.9 - Cardiomyopathy, unspecified (5) Pleural effusion ICD Codes: J90 - Pleural effusion, not elsewhere classified Status: Acute (6) ETOH abuse ICD Codes: F10.10 - Alcohol abuse, uncomplicated Assessment and Plan Continue vent support. Now on pressors. Cont ICU care. Continue rate control of AF. Echo with moderate LV dysfunction. Overall very poor prognosis. Blair Krishnamurthy MD Jul 14, 2017 17:38
[2017-07-14 21:59] LABS: HEMATOCRIT 30.3 % (39.0-51.0); REVIEW FLAG FINAL
[2017-07-14 23:45] LABS: BLOOD GAS CARBOXYHEMOGLOBIN 1.6 % (0-4); BLOOD GAS HCO3 29 mmol/L (22-26); BLOOD GAS METHEMOGLOBIN 1.1 % (0-2); BLOOD GAS O2 HGB SATURATION 98 % (90-100); BLOOD GAS OXYGEN CONTENT 14.3 Vol % (12.0-20.0); BLOOD GAS PCO2 28 mmHg (38-42); BLOOD GAS PO2 328 mmHg (61-120); BLOOD GAS TOTAL HGB 9.8 G/DL (12.0-16.0); TEMP CORR TO 98.6
[2017-07-14 23:46] LABS: CRITICAL VALUE YES; OXYGEN DEVICE VENTILATOR
[2017-07-14 23:47] LABS: DRAW SITE ART LINE; FIO2 90 %
[2017-07-14 23:48] LABS: STAT YES
--- NOTE | 2017-07-14 23:51 | PD.ONC.PN ---
Subjective Subjective Remarks remains acutely ill s/p asystole on ventilator and pressors no family members present Objective Data Date Time Temp Pulse Resp B/P (MAP) Pulse Ox O2 Delivery O2 Flow Rate FiO2 07/14/17 23:25 131 118/79 07/14/17 23:03 122 146/89 07/14/17 22:00 117 07/14/17 20:36 100 90 07/14/17 20:35 118 143/94 07/14/17 20:00 100.9 101 16 134/67 (89) 100 07/14/17 20:00 119 07/14/17 20:00 100 07/14/17 19:00 100 Mechanical Ventilator 100 07/14/17 19:00 114 142/86 07/14/17 19:00 114 142/86 07/14/17 18:19 120 141/84 07/14/17 18:00 100 07/14/17 16:41 100 100 07/14/17 16:31 103 170/89 07/14/17 16:00 100 07/14/17 16:00 100.9 100 16 168/92 (117) 100 07/14/17 16:00 100 07/14/17 14:00 116 07/14/17 13:04 116 154/98 07/14/17 12:49 106 128/70 07/14/17 12:00 106 07/14/17 12:00 100 07/14/17 12:00 100.4 106 16 179/98 (125) 100 07/14/17 11:09 100 100 07/14/17 10:26 56 100 07/14/17 10:00 116 07/14/17 09:01 96 50 07/14/17 08:00 99.9 103 16 174/98 (123) 100 07/14/17 08:00 82 07/14/17 08:00 50 07/14/17 07:00 100 Mechanical Ventilator 50 07/14/17 06:46 99.7 98 16 162/97 100 07/14/17 06:00 95 07/14/17 05:52 100.0 88 16 124/75 91 07/14/17 04:00 50 07/14/17 04:00 98 07/14/17 04:00 99.9 99 16 138/74 (95) 96 07/14/17 03:39 93 45 07/14/17 02:00 87 07/14/17 01:51 83 117/65 07/14/17 00:17 97 50 07/14/17 00:00 98.2 84 16 106/62 (77) 96 07/14/17 00:00 84 07/14/17 00:00 50 07/15/17 07/15/17 07/15/17 07:00 15:00 23:00 Intake Total 350 ml Balance 350 ml Result Diagram: 07/14/17 2145 07/14/17 0320 Laboratory Results Laboratory Tests Test 07/14/17 03:20 07/14/17 05:52 07/14/17 10:16 07/14/17 10:35 White Blood Count 15.8 TH/MM3 Red Blood Count 2.83 MIL/MM3 Hemoglobin 7.8 GM/DL Hematocrit 24.5 % Mean Corpuscular Volume 86.4 FL Mean Corpuscular Hemoglobin 27.7 PG Mean Corpuscular Hemoglobin Concent 32.1 % Red Cell Distribution Width 17.4 % Platelet Count 266 TH/MM3 Mean Platelet Volume 9.2 FL Neutrophils (%) (Auto) 88.7 % Lymphocytes (%) (Auto) 2.6 % Monocytes (%) (Auto) 7.7 % Eosinophils (%) (Auto) 0.6 % Basophils (%) (Auto) 0.4 % Neutrophils # (Auto) 14.0 TH/MM3 Lymphocytes # (Auto) 0.4 TH/MM3 Monocytes # (Auto) 1.2 TH/MM3 Eosinophils # (Auto) 0.1 TH/MM3 Basophils # (Auto) 0.1 TH/MM3 CBC Comment DIFF FINAL Differential Comment Blood Urea Nitrogen 23 MG/DL Creatinine 1.20 MG/DL Random Glucose 113 MG/DL Calcium Level 9.5 MG/DL Phosphorus Level 1.2 MG/DL Magnesium Level 2.3 MG/DL Sodium Level 145 MEQ/L Potassium Level 3.5 MEQ/L Chloride Level 104 MEQ/L Carbon Dioxide Level 34.5 MEQ/L Anion Gap 7 MEQ/L Estimat Glomerular Filtration Rate 61 ML/MIN Blood Gas Puncture Site ART LINE ART LINE Blood Gas Patient Temperature 98.6 98.6 Blood Gas HCO3 32 mmol/L 31 mmol/L Blood Gas Base Excess 8.7 mmol/L 6.1 mmol/L Blood Gas Oxygen Saturation 90 % 68 % Arterial Blood pH 7.51 7.41 Arterial Blood Partial Pressure CO2 40 mmHg 49 mmHg Arterial Blood Partial Pressure O2 60 mmHg 38 mmHg Arterial Blood Oxygen Content 10.2 Vol % 9.7 Vol % Arterial Blood Carboxyhemoglobin 2.1 % 1.5 % Arterial Blood Methemoglobin 1.1 % 1.1 % Blood Gas Hemoglobin 8.0 G/DL 10.2 G/DL Oxygen Delivery Device VENT AMBU BAG Blood Gas Ventilator Setting Blood Gas Inspired Oxygen 50 % 100 % Blood Gas Liter Flow 15 L/M Prothrombin Time 11.2 SEC Prothromb Time International Ratio 1.0 RATIO Test 07/14/17 10:54 07/14/17 11:05 07/14/17 21:45 07/14/17 23:23 Blood Gas Puncture Site ART LINE ART LINE Blood Gas Patient Temperature 98.6 98.6 Blood Gas HCO3 32 mmol/L 29 mmol/L Blood Gas Base Excess 7.6 mmol/L 7.0 mmol/L Blood Gas Oxygen Saturation 98 % 98 % Arterial Blood pH 7.44 7.63 Arterial Blood Partial Pressure CO2 48 mmHg 28 mmHg Arterial Blood Partial Pressure O2 321 mmHg 328 mmHg Arterial Blood Oxygen Content 14.1 Vol % 14.3 Vol % Arterial Blood Carboxyhemoglobin 1.5 % 1.6 % Arterial Blood Methemoglobin 0.9 % 1.1 % Blood Gas Hemoglobin 9.7 G/DL 9.8 G/DL Oxygen Delivery Device VENTILATOR VENTILATOR Blood Gas Ventilator Setting PC/AC COMMENT Blood Gas Inspired Oxygen 100 % 90 % Hemoglobin 9.6 GM/DL 9.8 GM/DL Hematocrit 30.1 % 30.3 % Culture Results Microbiology Date/Time Source Procedure Growth Status 07/13/17 20:00 Urine Catheterized Urine Urine Culture - Preliminary NO GROWTH IN 24 HOURS. Resulted Imaging Studies Last 24 hours Impressions Chest X-Ray 07/14/17 0000 Signed Impressions: Service Date/Time: Friday, July 14, 2017 10:22 - CONCLUSION: Extensive left lung consolidation and likely effusion. Cole Saleh MD Chest X-Ray 07/14/17 0000 Signed Impressions: Service Date/Time: Friday, July 14, 2017 09:17 - CONCLUSION: 1. Complete opacification right hemithorax. Mucous plugging would be a consideration. This is new when compared with the prior exam. Keaton Jay MD Administered Medications Medications (Trade) Dose Ordered Sig/Zeinab Route PRN Reason Start Time Stop Time Status Last Admin Dose Admin Senna/Docusate Sodium (Mehnaz-Colace) 1 tab BID PO 06/28/17 21:00 07/09/17 22:12 Guaifenesin (Mucinex Er) 600 mg BID PO 06/28/17 21:00 07/14/17 09:26 Albumin Human (Albumin 25% Inj) 25 gm Q12H IV 07/02/17 14:00 07/14/17 15:06 Digoxin (Lanoxin) 0.25 mg DAILY PO 07/02/17 16:45 07/14/17 09:27 Lisinopril (Prinivil) 10 mg DAILY PO 07/05/17 09:00 Future hold 07/14/17 09:26 Morphine Sulfate (Morphine Inj) 2 mg Q3H PRN IV PUSH pain 1-10 07/06/17 20:00 07/12/17 01:46 Sodium Chloride (NS Flush) 2 ml BID .XX 07/06/17 21:00 07/14/17 09:00 Chlorhexidine Gluconate (Chlorhexidine 2% Cloth) Taper DAILY@04 TOP 07/07/17 04:00 07/03/18 03:59 07/08/17 05:31 Potassium Bicarb/ Potassium Chloride (K-Lyte Cl Eff) 25 meq Q12HR PO 07/07/17 09:00 07/14/17 09:26 Potassium Chloride 100 ml @ 25 mls/hr UNSCH PRN IV ELECTROLYTE REPLACEMENT 07/07/17 18:30 07/11/17 07:40 Potassium Bicarb/ Potassium Chloride (K-Lyte Cl Eff) 50 meq UNSCH PRN PO ELECTROLYTE REPLACEMENT 07/07/17 18:30 07/14/17 04:27 Potassium Phosphate 30 mmol/ Sodium Chloride 260 ml @ 43.333 mls/ hr UNSCH PRN IV ELECTROLYTE REPLACEMENT 07/07/17 18:30 07/07/17 18:55 Lorazepam (Ativan Inj) 1 mg Q4H PRN IV PUSH AGITATION AND/OR HALLUCINATION 07/08/17 09:15 07/13/17 22:18 Pantoprazole Sodium (Protonix Inj) 40 mg Q12H IV PUSH 07/08/17 16:00 07/14/17 15:06 Chlorhexidine Gluconate (Peridex 0.12% Liq) 15 ml BID@08,20 MT 07/09/17 20:00 07/14/17 19:51 Carvedilol (Coreg) 25 mg Q12HR PO 07/12/17 10:00 07/14/17 21:01 Propofol 100 ml @ 4.41 mls/hr TITRATE PRN IV SEDATION 07/13/17 18:15 07/14/17 19:26 Acetylcysteine (Mucomyst 20% Neb) 2 ml Q6HR NEB NEB 07/14/17 16:00 07/16/17 16:00 07/14/17 20:36 Milrinone Lactate 20 mg/Sodium Chloride 100 ml @ 16.92 mls/ hr Q5H55M IV 07/14/17 11:34 07/14/17 23:03 Albuterol/ Ipratropium (Duoneb Neb) 1 ampule Q6HR NEB NEB 07/14/17 12:00 07/14/17 20:36 Objective Remarks GENERAL:nad SKIN: Warm and dry.. LYMPHATIC: No adenopathy. CARDIOVASCULAR: s1/s2, rrr. RESPIRATORY: b/l coarse sounds all vance GASTROINTESTINAL: Abdomen soft, non-tender, nondistended. EXTREMITIES: No cyanosis, or edema. Assessment/Plan Problem List: (1) Respiratory distress ICD Codes: R06.00 - Dyspnea, unspecified (2) Colonic mass ICD Codes: K63.9 - Disease of intestine, unspecified (3) Pleural effusion ICD Codes: J90 - Pleural effusion, not elsewhere classified Status: Acute (4) Atrial fibrillation with RVR ICD Codes: I48.91 - Unspecified atrial fibrillation Status: Acute (5) Morbid obesity ICD Codes: E66.01 - Morbid (severe) obesity due to excess calories Assessment 62-year-old male who has a history of alcohol abuse who was admitted to the hospital with acute dyspnea and lower extremity swelling. He was found to have a large pleural effusion and new-onset atrial fibrillation. He had right calf swelling with a hematoma which and underwent fasciotomy and drainage. He became anemic and a colonoscopy was performed. He was having GI bleeding. This revealed a colonic mass at the level of the hepatic flexure. 1. Colonic mass at the level of the hepatic flexure. 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 s/p asystole and intubation. - poor prognosis given current condition 2. Acute anemia from GI bleeding, hemoglobin today 7.5. keep hemoglobin greater than 8 in the setting of atrial fibrillation, history of coronary artery disease and myocardial infarction and now s/p asystole - prbc transfusion today 3. Acute renal failure with creatinine from acute illness, respiratory failure, hypotension, et cetera. Bryon Rivers MD Jul 14, 2017 23:51
[2017-07-14] MEDS: VASOPRESSIN INJ 40 UNITS in DEXTROSE 5% IN WATER 100ML INJ 98 ML IV SCH ×2 (23:52)
[2017-07-15] VITALS (19 sets, daily range): BP systolic 138–166; BP diastolic 81–96; PULSE 100–123; RESP 12–16; TEMP 98.6–101.3; O2SAT 93–100
--- NOTE | 2017-07-15 00:19 | RADRPT ---
EXAM DATE/TIME: 07/14/2017 23:42 [facility] COMPARISON: CHEST SINGLE AP, July 14, 2017, 10:22. INDICATIONS : Pleural effusions. MEDICAL HISTORY : Cardiovascular disease. Hypertension Myocardial infarction. SURGICAL HISTORY : None. ENCOUNTER: Subsequent ACUITY: 4 - 6 days PAIN SCORE: Non-responsive. LOCATION: Bilateral chest FINDINGS: Mild basilar consolidation and small effusion developing at the right base. On the left, the consolid ation and pleural effusion have cleared considerably with now minimal parenchymal opacity of the base . Heart size within normal limits. Endotracheal tube tip is about 5 cm above the addie. There is a left internal jugular central venous catheter with tip in the superior vena cava. A nasogastric tube courses into the stomach. CONCLUSION: 1. Consolidation and pleural effusion on the left almost completely resolved. 2. Mild basilar consolidation and small pleural effusion developing on the right. 3. Unchanged appropriately positioned lines and tubes as above. Cole Nieves MD on July 15, 2017 at 0:16 Board Certified Radiologist. This report was verified electronically.
[2017-07-15] MEDS: NOREPINEPHRINE-DEXTROSE DRIP 250 ML IV PRN ×5 (01:35→22:02)
[2017-07-15] MEDS: ALBUMIN HUMAN 25% 25 GM/100 ML BAGP IV SCH ×2 (01:36→13:34)
[2017-07-15] MEDS: RESP: ALBUTEROL 2.5 MG/IPRATROPIUM 0.5 MG NEB (SCH) NEB ×4 (03:32→20:57)
[2017-07-15] MEDS: RESP: ACETYLCYSTEINE 20% 30 ML NEB NEB SCH ×4 (03:33→20:58)
[2017-07-15] MEDS: PROPOFOL 1000 MG/100 ML INJ 100 ML IV PRN ×8 (03:34→22:01)
[2017-07-15] MEDS: CHLORHEXIDINE GLUCONATE 2 % 1 PACK (2 CLOTHS) TOP SCH (04:00)
[2017-07-15 04:17] LABS: BLOOD GAS CARBOXYHEMOGLOBIN 1.7 % (0-4); BLOOD GAS HCO3 27 mmol/L (22-26); BLOOD GAS METHEMOGLOBIN 1.1 % (0-2); BLOOD GAS O2 HGB SATURATION 97 % (90-100); BLOOD GAS OXYGEN CONTENT 13.6 Vol % (12.0-20.0); BLOOD GAS PCO2 22 mmHg (38-42); BLOOD GAS PO2 182 mmHg (61-120); BLOOD GAS TOTAL HGB 9.7 G/DL (12.0-16.0); TEMP CORR TO 98.6
[2017-07-15 04:18] LABS: CRITICAL VALUE YES; FIO2 60 %
[2017-07-15 04:19] LABS: DRAW SITE ART LINE; STAT NO
[2017-07-15] MEDS: PANTOPRAZOLE SODIUM 40 MG VIAL IV PUSH SCH ×2 (04:42→15:18)
[2017-07-15 04:59] LABS: HEMATOCRIT 28.4 % (39.0-51.0); REVIEW FLAG FINAL
[2017-07-15] MEDS ORDERED: EPINEPHrine HCL (1:10,000) 1 MG/10 ML SYRINGE IV ONE (05:00)
[2017-07-15] MEDS ORDERED: SODIUM BICARBONATE 8.4% INJ 50 MEQ/50 ML SYR IV ONE (05:00)
[2017-07-15 05:37] LABS: BICARBONATE 28.3 MEQ/L (21.0-32.0)
[2017-07-15 05:39] LABS: POTASSIUM 2.7 MEQ/L (3.5-5.1)
[2017-07-15] MEDS: ICU - POTASSIUM CHLORIDE/AQUEOUS SOLN 40 MEQ/100 ML IVPB IV PRN ×3 (06:05→17:23)
--- NOTE | 2017-07-15 06:33 | RADRPT ---
EXAM DATE/TIME: 07/15/2017 04:58 [facility] COMPARISON: CHEST SINGLE AP, July 14, 2017, 23:42. INDICATIONS : Respiratory failure. MEDICAL HISTORY : Cardiovascular disease. Hypertension. Myocardial infarction. SURGICAL HISTORY : None. ENCOUNTER: Subsequent ACUITY: 4 - 6 days PAIN SCORE: Non-responsive. LOCATION: Bilateral chest FINDINGS: Mild bibasilar consolidation and small right pleural effusion again noted, both sides not significant ly changed. No pneumothorax seen. Heart size stable, within normal limits. Endotracheal tube tip is approximately 5 cm above the addie. There is a left internal jugular centra l venous catheter are again seen, tip in the superior vena cava. Nasogastric tube courses into the st [facility]. CONCLUSION: No significant change. Cole Nieves MD on July 15, 2017 at 6:31 Board Certified Radiologist. This report was verified electronically.
--- NOTE | 2017-07-15 07:09 | PD.ORT.PN ---
Subjective Subjective Remarks POD 6 s/p I&D right leg patient intubated/sedated. patient coded again yesterday Objective Vitals Vital Signs Date Time Temp Pulse Resp B/P (MAP) Pulse Ox O2 Delivery O2 Flow Rate FiO2 07/15/17 06:00 114 07/15/17 04:43 126 164/93 07/15/17 04:00 101.3 119 16 166/92 (116) 100 07/15/17 04:00 119 07/15/17 04:00 60 07/15/17 04:00 100 60 07/15/17 02:00 118 07/15/17 01:35 119 162/97 07/15/17 00:02 100 75 07/15/17 00:00 119 07/15/17 00:00 101.1 119 16 138/88 (105) 100 07/15/17 00:00 60 07/14/17 23:52 120 138/88 07/14/17 23:25 131 118/79 07/14/17 23:03 122 146/89 07/14/17 22:00 117 07/14/17 20:36 100 90 07/14/17 20:35 118 143/94 07/14/17 20:00 100.9 101 16 134/67 (89) 100 07/14/17 20:00 119 07/14/17 20:00 100 07/14/17 19:00 100 Mechanical Ventilator 100 07/14/17 19:00 114 142/86 07/14/17 19:00 114 142/86 07/14/17 18:19 120 141/84 07/14/17 18:00 100 07/14/17 16:41 100 100 07/14/17 16:31 103 170/89 07/14/17 16:00 100 07/14/17 16:00 100.9 100 16 168/92 (117) 100 07/14/17 16:00 100 07/14/17 14:00 116 07/14/17 13:04 116 154/98 07/14/17 12:49 106 128/70 07/14/17 12:00 106 07/14/17 12:00 100 07/14/17 12:00 100.4 106 16 179/98 (125) 100 07/14/17 11:09 100 100 07/14/17 10:26 56 100 07/14/17:00 116 07/14/17 09:01 96 50 07/14/17 08:00 99.9 103 16 174/98 (123) 100 07/14/17 08:00 82 07/14/17 08:00 50 I/O 07/14/17 07/14/17 07/14/17 07/15/17 07/15/17 07/15/17 07:00 15:00 23:00 07:00 15:00 23:00 Intake Total 652 ml 650 ml 2093 ml 1385.8 ml Output Total 4350 ml 1600 ml 1250 ml Balance -3698 ml 650 ml 493 ml 135.8 ml Intake Oral 0 ml IV Total 92 ml 2033 ml 1385.8 ml Packed Cells 400 ml 400 ml Blood Product IV Normal Saline Flush 40 ml 250 ml Other 120 ml 60 ml Output Urine Total 4200 ml 1400 ml 1250 ml Gastric Drainage Total 150 ml 150 ml Drainage Total 0 ml 50 ml # Bowel Movements 3 Result Diagram: 07/15/17 0450 07/15/17 0450 Other Results Laboratory Tests Test 07/14/17 10:35 Prothromb Time International Ratio 1.0 RATIO Prothrombin Time 11.2 SEC (9.8-11.6) Imaging Last 24 hours Impressions Chest X-Ray 07/13/17 1706 Signed Impressions: Service Date/Time: Thursday, July 13, 2017 17:03 - CONCLUSION: 1. Stable tubes and lines, as above. 2. Stable, right greater than left, small bilateral pleural effusions and associated lower lobe airspace disease. 3. No significant interval change. Blas Hills MD Objective Remarks RLE: dressings clean and dry. intact. NVI. +vac with good seal. Assessment & Plan Assessment and Plan 1) Right Leg Hematoma with compartment syndrome s/p Fasciotomy with I&D vac application - POD 9 -Second irrigation debridement with partial wound closure and wound VAC application applied POD#6/ last vac change day #2 Maintain wound VAC at all times not stable for surgery plan for vac change at bedside tomorrow will need large vac/large xeroform/ioband Martir Moreno Jul 15, 2017 07:09
--- NOTE | 2017-07-15 08:37 | HHI.CCPN ---
Subjective Remarks/Hospital Course [id number] with multiple medical problems. He was initially admitted to the hospital on 06/28/17 with a chief complaint of shortness of breath and swelling of both legs. The CAT scan of the chest revealed large pleural effusion on the right however patient was refusing thoracentesis. He was also diagnosed with a new onset of atrial fibrillation and has been on anticoagulation while in the hospital. He was also complaining of approximately two day history of increasing leg pain and swelling and significant bruising. His pain became unbearable and he was taken emergently to operating room. He underwent fasciotomy incision and drainage of right calf hematoma and postoperatively he was admitted to ICU intubated. His chest x-ray repeat showed significant worsening of pleural effusion, patient was difficult to ventilate with high peak pressures on the ventilator, also his blood pressure showed hemodynamic compromise. The emergent thoracentesis was performed in the ICU with drainage of 2.2 L off fluid. SUBJECTIVE: 07/07/17: Patient remains intubated sedated. On lightening sedation he becomes very agitated FiO2. Chest x-ray post thoracentesis shows significant improvement in right effusion. Intermittently hypotensive not on pressors. s/p Incision and drainage of right calf hematoma, compartment release anterior and lateral compartments right calf, VAC dressing. 07/08/17: No acute events overnight. The patient continues on Precedex infusion currently at 0.4mcgs/kg/hr, plan to wean Precedex off and provide Ativan when necessary for agitation. Hemoglobin notably 7.0 today type and screen ordered for plans for OR wound closure on 07/09/17. The patient continues with symptoms of paranoia, but cooperative this a.m. Plan for swallow study to initiate feed. 07/09: Patient's hemoglobin continued to decline yesterday to 6.4.. The patient was transfused with 2 units RBCs .Yesterday the patient had a large melanotic stool also hematuria. Coagulation studies obtained within normal limits. GI was consulted, plan for colonoscopy today. Overnight the urine has cleared, hematuria resolved. The patient has a condom catheter good urinary output. Patient continues to be wean off phenylephrine. Patient continues to have paranoia, bouts of confusion. 07/10: Yesterday the patient underwent I&D of the right calf and partial closure of the right calf wound, returned to ICU intubated and sedated placed on propofol and fentanyl infusion. The patient also underwent upper endoscopy, an attempted colonoscopy but was unsuccessful secondary to poor prep. The patient received GoLYTELY throughout the night via OGT with plans for repeat colonoscopy today. Hemodynamically the patient continues to be hypotensive, lisinopril placed on hold, carvedilol decreased dosage by half to 12.5 mg. Low- dose phenylephrine infusion continues at 50 mcgs. 07/11: Hemoglobin stable .The patient underwent colonoscopy yesterday afternoon which revealed multiple polyps in the ascending colon as well as one large colonic mass in the hepatic flexure measuring 3-4 cm issues for carcinoma. General surgery and oncology was consulted. CEA lab, colonic biopsy pending. Plan for CPAP trials this a.m. with plans for extubation. 07/12: No acute events overnight. The patient was successfully extubated yesterday afternoon. Plans for OT PT evaluation and out of bed to chair today. The patient currently A. fib beta blockers were being held secondary to hypotension, which has now resolved. Coreg has been reinstituted twice a day along with patient's lisinopril. The patient continues on Lasix 40 mg daily however secondary to hypotension , creatinine increased to 1.47->1.5 today. Psychiatry consulted for competency, and cognitive evaluation. Case management also consulted. Patient's hemoglobin dropped to 7.5 to be transfused with 1 unit packed cells today. 07/13: Patient found in asystole. Patient status post cardiac arrest with ROSC within 10 mins. Patient intubated, received 3 rounds of 1 mg epinephrine, 1 amp of sodium bicarbonate. EKG, stat labs pending. See CPR note. 07/14: Patient notably not moving air no chest excursion on the right. O2 saturation was 97%. Stat chest x-ray performed stat ABG obtained. Patient was noted on CTA last evening postcardiac arrest to have moderate right pleural effusions as well as the chest x-ray this a.m. showed mucus plugging with complete opacification of the right lung. Ultrasound evaluation at bedside was noted that the effusion was spread throughout some plan for IR CT-guided thoracentesis in the near future. Patient was placed on 100%, timeout was performed for bronchoscopy, O2 saturation 97, upon placing the bronchoscope into the endotracheal tube and viewing the lungs the patient notably precipitously desaturated, fiber-optic scope removed. Patient then became bradycardic-> asystole, 100% [id number] was provided at that time with subsequent cardiac arrest 1013. 1mg of epinephrine was given [id number] with 15 cm of PEEP provided, ROSC at 3 minutes. Repeat chest x-ray revealed a right lung open, and now left almost complete opacification. Patient was placed on 100% oxygen and a pressure control mode with high level of PEEP and Mucomyst. Planned repeat bronchoscopy later this afternoon pending on hemodynamic stability. Levophed infusion currently and Milrinone infusion added , EF 30-35%. 07/15: Remains critically ill after cardiopulmonary arrest yesterday. maximum support in place. Objective Vital Signs Date Time Temp Pulse Resp B/P (MAP) Pulse Ox O2 Delivery O2 Flow Rate FiO2 07/15/17 07:52 93 60 07/15/17 06:00 114 07/15/17 04:43 164/93 07/15/17 04:00 101.3 16 07/14/17 19:00 Mechanical Ventilator 07/13/17 09:09 4.00 Intake and Output 07/15/17 07/15/17 07/16/17 08:00 16:00 00:00 Intake Total 1035.8 ml Output Total 1250 ml Balance -214.2 ml Result Diagram: 07/15/17 0450 07/15/17 0450 Other Results Laboratory Tests Test 07/14/17 10:16 07/14/17 10:54 07/14/17 23:23 07/15/17 04:00 Blood Gas Puncture Site ART LINE ART LINE ART LINE ART LINE Blood Gas Patient Temperature 98.6 98.6 98.6 98.6 Blood Gas HCO3 31 mmol/L (22-26) 32 mmol/L (22-26) 29 mmol/L (22-26) 27 mmol/L (22-26) Blood Gas Base Excess 6.1 mmol/L (-2-2) 7.6 mmol/L (-2-2) 7.0 mmol/L (-2-2) 6.0 mmol/L (-2-2) Blood Gas Oxygen Saturation 68 % (90-100) 98 % (90-100) 98 % (90-100) 97 % ( 90-100) Arterial Blood pH 7.41 (7.380-7.420) 7.44 (7.380-7.420) 7.63 (7.380-7.420) 7.69 (7.380-7.420) Arterial Blood Partial Pressure CO2 49 mmHg (38-42) 48 mmHg (38-42) 28 mmHg (38-42) 22 mmHg (38-42) Arterial Blood Partial Pressure O2 38 mmHg (61-120) 321 mmHg (61-120) 328 mmHg (61-120) 182 mmHg (61-120) Arterial Blood Oxygen Content 9.7 Vol % (12.0-20.0) 14.1 Vol % (12.0-20.0) 14.3 Vol % (12.0-20.0) 13.6 Vol % (12.0-20.0) Arterial Blood Carboxyhemoglobin 1.5 % (0-4) 1.5 % (0-4) 1.6 % (0-4) 1.7 % (0-4) Arterial Blood Methemoglobin 1.1 % (0-2) 0.9 % (0-2) 1.1 % (0-2) 1.1 % (0-2) Blood Gas Hemoglobin 10.2 G/DL (12.0-16.0) 9.7 G/DL (12.0-16.0) 9.8 G/DL (12.0-16.0) 9.7 G/DL (12.0-16.0) Oxygen Delivery Device AMBU BAG VENTILATOR VENTILATOR Blood Gas Liter Flow 15 L/M Blood Gas Inspired Oxygen 100 % 100 % 90 % 60 % Blood Gas Ventilator Setting PC/AC COMMENT COMMENT Imaging Last Impressions Chest X-Ray 07/10/17 0600 Signed Impressions: Service Date/Time: Monday, July 10, 2017 03:44 - CONCLUSION: 1. Support apparatus in good position. Basilar airspace disease slightly improved on the right since July 09. Felipe Medina MD Lower Extremity Ultrasound 07/06/17 0000 Signed Impressions: Service Date/Time: Thursday, July 06, 2017 13:20 - CONCLUSION: 1. Probable large hematoma in the right calf this measures at least 36 x 5 x 7.6 cm. Please see above discussion. Srikanth Ware MD CT Angiography 06/28/17 1327 Signed Impressions: Service Date/Time: Wednesday, June 28, 2017 15:58 - CONCLUSION: 1. No pulmonary embolus identified. 2. Large right-sided pleural effusion with consolidation of the right lower lobe. Srikanth Ware MD Last 24 hours Impressions Chest X-Ray 07/07/17 0000 Signed Impressions: Service Date/Time: Friday, July 07, 2017 01:22 - CONCLUSION: 1. Right thoracentesis without pneumothorax. Felipe Medina MD Objective Remarks GENERAL: Morbidly obese critically ill man. SKIN: Warm and dry. HEAD: Normocephalic. EYES: No scleral icterus. No injection or drainage. NECK: Supple, trachea midline. Orally Intubated. CARDIOVASCULAR: Irreg Irreg rhythm without murmurs, gallops, or rubs. RESPIRATORY: Breath sounds equal bilaterally. Mechanical ventilation, diffuse rhonchi. GASTROINTESTINAL: Abdomen soft, non-tender, nondistended. Few BS. MUSCULOSKELETAL: status post fasciotomy on the right calf, dressing dry and clean. Right foot edema 2+ Capillary refill brisk right lower extremity. Dopplerable pulses NEURO EXAM: Unresponsive today. Breathes over vent. Procedures 07/09-EGD 07/10-colonoscopy 07/13 asystolic cardiac arrest with ROSC in 10 mins A/P Assessment and Plan Neuro: Possible anoxic brain injury - Neurochecks per ICU protocol - Patient placed on Haldol 07/13 per psychiatry-discontinued - Propofol infusion for ventilator synchrony, after assessment neurologically post cardiac arrest -Immediate neurological assessment postcardiac arrest 07/13/17 patient spontaneously opens eyes, withdraws extremities x 4 with painful, does not track Resp: Acute hypoxemic respiratory failure R Pleural effusion - Reintubated 07/13- cardiac arrest ETT 8.0 at 22 cm at the lip - 07/07 S/P thoracentesis with 2.2 L removed , CT angiogram of 07/13 Bilateral pleural effusions, moderate right pleural effusion, small left pleural effusion. No PE. Patient will need ultrasound or CT-guided thoracentesis by IR in the near future -07/14 chest x-ray and complete opacification of right lung with mediastinal shift left lung free of acute parenchymal opacity. Bronchoscopy attempted, aborted secondary to cardiac arrest -07/14 chest x-ray-Post cardiac arrest-opacification right lung resolved,now almost complete left lung opacification - s/p extubation 07/11 - Followed by mortar carrier, Dr. Palacios -Planned repeat bronchus if hemodynamically stable -Mechanical ventilation PEEP at 15, pressure control setting maintain minute ventilation at 12L, paralysis, FiO2 100% Duonebs q 6 scheduled and q 2 hr PRN, Mucomyst 20% x 2 days - CVS: New onset Atrial Fibrillation - Cardiology following, Dr. Krishnamurthy afib rate controlled - Carvedilol 25 mg BID- placed on hold - EF of 30-35% with global hypokinesia, mild concentric left ventricular hypertrophy, mild mitral valve regurgitation. - Milrinone 0.375 post cardiac arrest 07/14 - Anticoagulation on hold due surgical procedures and GI Bleeding - Hold po Lasix. Continue IV 40mg q12 -07/13 S/P asystolic cardiac arrest w/ ROSC within 10 mins -07/14 S/P asystolic cardiac arrest with ROSC within 3 minutes - Rate controlled on digoxin. Pulmonary Acute hypoxemic respiratory failure -07/13 intubated 8.0ETT -ABG's and chest x-rays as clinically indicated -Obtain CTA pulmonary-bilateral pleural effusions right greater than left, no PE. Right pleural effusion moderate size, noted to be diffuse throughout thorax. Planned CT-guided thoracentesis by IR in near future -Mucomyst, pressure control ventilation, PEEP currently at 5. Nimbex infusion - Bronch 07/24 ID/Heme/MSK: Right calf hematoma with compartment syndrome - Status post emergent fasciotomy and debridement - DC Meropenem, clindamycin, vancomycin. Place on Zosyn 4.5 GM IV q6h - Follow up panculture - Transfuse to keep hemoglobin more than 7 07/09- S/P I&D right lower extremity with partial wound closure -Wound VAC output less than 100 cc in the last 24 hours -07/07 Pleural fluid negative 07/13 hematemesis -07/12 type and screen, transfuse 1 unit packed cells, Hgb 7.5, 07/13 transfused 1 unit PRBC -Hematology- oncolology Dr. Bryon Rivers-07/14 pathology result adenocarcinoma of the colon. Per Gen. surgery discussion with Jhonatan Gretta patient is a poor surgical candidate. Palliative care consulted GI: -Maintain NPO -Hematemesis noted last night 07/13, Dr. Koch following 1 unit packed red blood cells -Bowel regimen -General surgery-Dr. Naranjo- patient is a poor surgical candidate -Follow GI recommendations : NAZIA -Monitor BMP -Maintain Art -Strict I and os Endo: - Electrolyte replacement per protocol -Monitor BMP MSK: -Continue evaluation of the right lower extremity S/P I&D and partial wound closure with wound VAC DVT GI prophylaxis - Teds SCDs - Hematemesis, prophylaxis heparin SQ discontinued - Pepcid Overall impression: Critically ill man having sustained cardiac arrest twice in last two days. Unstable respiratory status and unable to wean ventilator. Critical Care 39 mins Lukas Jeff MD Jul 15, 2017 08:37
[2017-07-15] MEDS: CARVEDILOL 12.5 MG TAB PO SCH ×2 (09:00→20:33)
[2017-07-15] MEDS: guaiFENesin E.R. 600 MG TAB PO SCH ×2 (09:00→20:34)
[2017-07-15] MEDS: POTASSIUM CHLORIDE 25 MEQ EFFERVESCENT TAB PO SCH ×2 (09:00→20:34)
[2017-07-15] MEDS: LISINOPRIL 10 MG TAB PO SCH (09:00)
[2017-07-15] MEDS: CHLORHEXIDINE 0.12% (ORAL KIT) 15 ML CUP MT SCH ×2 (09:09→20:34)
[2017-07-15] MEDS: SODIUM CHLORIDE 0.9% FLUSH 10 ML FLUSH SCH ×2 (09:09→20:34)
[2017-07-15] MEDS: MILRINONE INJ 20 MG in SODIUM CHLORIDE 0.9% INJ 80 ML IV SCH ×4 (09:09→22:01)
[2017-07-15] MEDS: DIGOXIN 0.25 MG TAB PO SCH (09:10)
[2017-07-15] MEDS: DOCUSATE SODIUM 50 MG/SENNA 8.6 MG TAB PO SCH ×2 (09:10→20:33)
--- NOTE | 2017-07-15 11:31 | HHI.PR ---
Subjective Subjective Notes Intubated/Sedated Had an additional cardiopulmonary arrest yesterday while bronchoscopy Objective Vitals/I&O Vital Signs Date Time Temp Pulse Resp B/P (MAP) Pulse Ox O2 Delivery O2 Flow Rate FiO2 07/15/17 10:00 123 07/15/17 09:09 176/94 07/15/17 08:00 60 07/15/17 08:00 100.9 14 100 07/15/17 07:00 Mechanical Ventilator 07/13/17 09:09 4.00 Labs Laboratory Tests Test 07/14/17 11:05 07/14/17 21:45 07/14/17 23:23 07/15/17 04:00 Hemoglobin 9.6 9.8 Hematocrit 30.1 30.3 Blood Gas Puncture Site ART LINE ART LINE Blood Gas Patient Temperature 98.6 98.6 Blood Gas HCO3 29 27 Blood Gas Base Excess 7.0 6.0 Blood Gas Oxygen Saturation 98 97 Arterial Blood pH 7.63 7.69 Arterial Blood Partial Pressure CO2 28 22 Arterial Blood Partial Pressure O2 328 182 Arterial Blood Oxygen Content 14.3 13.6 Arterial Blood Carboxyhemoglobin 1.6 1.7 Arterial Blood Methemoglobin 1.1 1.1 Blood Gas Hemoglobin 9.8 9.7 Oxygen Delivery Device VENTILATOR Blood Gas Ventilator Setting COMMENT COMMENT Blood Gas Inspired Oxygen 90 60 Test 07/15/17 04:50 Hemoglobin 9.7 Hematocrit 28.4 Blood Urea Nitrogen 23 Creatinine 1.34 Random Glucose 162 Calcium Level 9.3 Phosphorus Level 0.7 Magnesium Level 2.0 Sodium Level 143 Potassium Level 2.7 Chloride Level 103 Carbon Dioxide Level 28.3 Anion Gap 12 Estimat Glomerular Filtration Rate 54 Date/Time Source Procedure Growth Status 06/28/17 16:51 Blood Peripheral Aerobic Blood Culture - Final NO GROWTH IN 5 DAYS Complete 06/28/17 16:51 Blood Peripheral Anaerobic Blood Culture - Final NO GROWTH IN 5 DAYS Complete 07/07/17 01:00 Fluid Pleural Fluid Fungal Smear - Final NO FUNGAL ELEMENTS SEEN. Resulted 07/07/17 01:00 Fluid Pleural Fluid Fungal Culture - Preliminary NO GROWTH IN 1 WEEK Resulted 07/08/17 15:00 Stool Stool Stool Occult Blood (MARSHAL) - Final HEMOCCULT NEGATIVE Complete 07/13/17 20:00 Urine Catheterized Urine Urine Culture - Final NO GROWTH IN 48 HOURS. Complete Cardiovascular: Regular Lungs: Clear Abdomen: Non-distended, Non-tender, Other (obese ) Narrative Exam LEFT lower leg Wound Vac in place A/P Problem List: (1) Pleural effusion ICD Codes: J90 - Pleural effusion, not elsewhere classified Status: Acute (2) Atrial fibrillation with RVR ICD Codes: I48.91 - Unspecified atrial fibrillation Status: Acute (3) Morbid obesity ICD Codes: E66.01 - Morbid (severe) obesity due to excess calories (4) Cardiomyopathy ICD Codes: I42.9 - Cardiomyopathy, unspecified (5) Unspecified psychosis ICD Codes: F29 - Unspecified psychosis not due to a substance or known physiological condition Assessment and Plan 62 year old male with multiple medical problems; s/p respiratory failure requiring intubated; s/p fasciotomy of LEFT leg; concern for colon mass in the hepatic flexure (concern for cancer) -Diet as tolerated -Pathology back---shows moderately differentiated adenocarcinoma -Patient was emergently intubated yesterday after a respiratory arrest; unstable at this point; s/p second cardiopulmonary arrest -Patient does have a poor performance status for resection -Palliative Care consult to help establish next of kin and goals of treatment -Discussed with KATHY Lawson Attending Statement patient seen at bedside severe episodes of coding with rosc pt remains at high surgical risk no next of kin identified yet Attestation The exam, history, and the medical decision-making described in the above note were completed with the assistance of the mid-level provider. I reviewed and agree with the findings presented. I attest that I had a [id number] encounter with the patient on the same day, and personally performed and documented my assessment and findings in the medical record. Krysten Glynn Jul 15, 2017 11:13 Zeb Campuzano MD Jul 17, 2017 23:26
[2017-07-15 12:15] LABS: HEMATOCRIT 27.5 % (39.0-51.0); REVIEW FLAG FINAL
--- NOTE | 2017-07-15 12:19 | ECHRPT ---
Indication: Heart failure, unspecified CONCLUSIONS The left ventricular systolic function is [id number] reduced with an estimated ejection fra ction in the range of 35-40%. Very technically difficult study Mild concentric left ventricular hypertrophy. Normal left ventricular size. BP: 162 / 99 HR: 98 Rhythm: MEASUREMENTS (Male / Female) Normal Values Technical Quality:Very technically difficult study 2D ECHO LV Diastolic Diameter PLAX 5.1 cm 4.2 - 5.9 / 3.9 - 5.3 cm LV Systolic Diameter PLAX 4.2 cm IVS Diastolic Thickness 1.4 cm 0.6 - 1.0 / 0.6 - 0.9 cm LVPW Diastolic Thickness 1.4 cm 0.6 - 1.0 / 0.6 - 0.9 cm LV Relative Wall Thickness 0.5 DOPPLER Mitral E Point Velocity 76.5 cm/s TR Peak Velocity 224.0 cm/s TR Peak Gradient 20.1 mmHg Right Atrial Pressure 10.0 mmHg Pulmonary Artery Systolic Pressu 30.1 mmHg Right Ventricular Systolic Press 30.1 mmHg FINDINGS LEFT VENTRICLE The left ventricular systolic function is [id number] reduced with an estimated ejection fra ction in the range of 35-40%. Mild concentric left ventricular hypertrophy. Normal left ventricular size. RIGHT VENTRICLE Normal right ventricular size and systolic function. LEFT ATRIUM The left atrial size is normal. RIGHT ATRIUM The right atrial size is normal. ATRIAL SEPTUM Normal atrial septal thickness without atrial level shunting by limited color doppler interrogation. AORTA The aortic root and proximal ascending aorta are normal in size on limited imaging. MITRAL VALVE Structurally normal mitral valve. No mitral valve stenosis or regurgitation. AORTIC VALVE Trileaflet aortic valve. No aortic valve stenosis or regurgitation. TRICUSPID VALVE Structurally normal tricuspid valve. No tricuspid valve stenosis or regurgitation. PULMONARY VALVE No pulmonary valve regurgitation or stenosis. VESSELS The inferior vena cava is normal in size. PERICARDIUM No pericardial effusion. Griffin Hernandez MD, FACC (Electronically Signed) Final Date:15 July 2017 12:18
--- NOTE | 2017-07-15 14:54 | EKG ---
Date Performed: 07/14/2017 Time Performed: 11:33:40 PTAGE: 62 years EKG: Atrial fibrillation with rapid ventricular response. Inferior and anterior ST-T changes are nonspecific Abnormal ECG PREVIOUS TRACING : 07/13/2017 17.12 Compared to prior tracing no significant change DOCTOR: Enoc Lott Interpretating Date/Time 07/15/2017 14:52:33
--- NOTE | 2017-07-15 17:49 | HHI.HCPN ---
Reason for visit a. To assist with evaluation and management of symptoms including: pain, dyspnea, hypotension. b. To assist medical decision maker(s) with: better understanding of current medical conditions; weighing benefits/burdens of medical treatment options; making medical treatment decisions. . Subjective/Interval History Patient seen and examined in ICU. Discussed with nurse, Lulu. No family has been identified, Belkis Flanagan (found as potential family per [employer]) informed Madyson Nash LCSW that she is not related to the patient. No additional family identified per EMR (electronic or paper) review, [employer] or social media search. Requested case management consult [employer] for assistance in health care decision making, consult request sent earlier today. Patient remains critically ill in ICU on mech vent, FiO2 60% and PEEP 15. He is on Nimbex (2), Milrinone (0.375), Levophed (5), Diprivan (30). Temp 99.5. OG to suction. Hemoglobin 9.0, creatinine increased from 1.2 to 1.34. Chest xray unchanged. . Family/friend interactions No family has been identified. . Advance Directives Living Will: Never completed Health Care Surrogate: Never completed Durable Power of Nutrition Consultant: Never completed Advance Directive Specifics Health Care Surrogate(s): Patient is incapacitated to make his own health care decision, he is not expected to regain capacity. Attempting to identify family or friends to make medical decisions. Review of CM notes, [employer] was run and identified possible family Belkis Flanagan in [place], [place] [phone]. Madyson Crow LCSW left message at this number to determine if she is related. Will await return call. If no family identified may need to consider [employer] assistance. Significant change in goals: FULL CODE. Continue aggressive care for now. [employer] has been consulted to assist with medical decision making, anticipate being able to speak with them on 07/16/17 to clarify goals. . Objective Vital Signs Date Time Temp Pulse Resp B/P (MAP) Pulse Ox O2 Delivery O2 Flow Rate FiO2 07/15/17 17:14 100 60 07/15/17 17:12 118 139/80 07/15/17 16:00 60 07/15/17 16:00 116 07/15/17 16:00 99.7 116 14 146/81 (102) 100 07/15/17 15:45 114 160/93 07/15/17 15:00 118 162/91 07/15/17 14:11 118 145/84 07/15/17 14:00 118 07/15/17 12:51 100 60 07/15/17 12:00 120 07/15/17 12:00 60 07/15/17 12:00 100.4 120 14 150/93 (112) 100 07/15/17 10:00 123 07/15/17 10:00 123 151/91 07/15/17 09:15 123 153/90 07/15/17 09:09 128 176/94 07/15/17 09:08 128 176/94 07/15/17 08:00 60 07/15/17 08:00 100.9 121 14 163/96 (118) 100 07/15/17 08:00 121 07/15/17 07:52 93 60 07/15/17 07:44 96 60 07/15/17 07:35 60 07/15/17 07:00 100 Mechanical Ventilator 60 07/15/17 06:00 114 07/15/17 04:43 126 164/93 07/15/17 04:00 101.3 119 16 166/92 (116) 100 07/15/17 04:00 119 07/15/17 04:00 60 07/15/17 04:00 100 60 07/15/17 02:00 118 07/15/17 01:35 119 162/97 07/15/17 00:02 100 75 07/15/17 00:00 119 07/15/17 00:00 101.1 119 16 138/88 (105) 100 07/15/17 00:00 60 07/14/17 23:52 120 138/88 07/14/17 23:25 131 118/79 07/14/17 23:03 122 146/89 07/14/17 22:00 117 07/14/17 20:36 100 90 07/14/17 20:35 118 143/94 07/14/17 20:00 100.9 101 16 134/67 (89) 100 07/14/17 20:00 119 07/14/17 20:00 100 07/14/17 19:00 100 Mechanical Ventilator 100 07/14/17 19:00 114 142/86 10/4/17 19:00 114 142/86 07/14/17 18:19 120 141/84 07/14/17 18:00 100 Intake & Output 07/15/17 07/15/17 07:00 19:00 Intake Total 1485.8 ml 1148 ml Output Total 1250 ml Balance 235.8 ml 1148 ml IV Total 1485.8 ml 1148 ml Output Urine Total 1250 ml Physical Exam CONSTITUTIONAL/GENERAL: This is an adequately nourished patient, on mech vent. TUBES/LINES/DRAINS:ETT, OG to suction, left IJ central line, a-line right wrist , bilateral soft wrist restraints, Art, SCDs, Dressing and wound vac RLE. SKIN: No jaundice, rashes, or lesions. Ecchymoses on upper extremities. Skin temperature warm. EYES: eyes closed. ENT: Unable to assess hearing. Nose without bleeding or purulent drainage. Throat difficult to visualize due to tubes. CARDIOVASCULAR: Irregular. RESPIRATORY/CHEST: unlabored respirations on vent. Diminished breath sounds bilaterally, right > left. GASTROINTESTINAL: Abdomen soft, protuberant. Bowel sounds hypoactive. GENITOURINARY: Without palpable bladder distension. Art catheter in place. MUSCULOSKELETAL: Extremities with edema. Wound vac RLE. NEUROLOGICAL: Sedated and paralyzed. PSYCHIATRIC: Sedated and paralyzed. . Diagnostic Tests Laboratory Laboratory Tests Test 07/13/17 03:30 07/13/17 17:30 07/13/17 20:00 07/13/17 20:36 White Blood Count 15.4 TH/MM3 (4.0-11.0) 13.5 TH/MM3 (4.0-11.0) Red Blood Count 3.07 MIL/MM3 (4.50-5.90) 2.86 MIL/MM3 (4.50-5.90) Hemoglobin 8.5 GM/DL (13.0-17.0) 8.1 GM/DL (13.0-17.0) Hematocrit 27.2 % (39.0-51.0) 25.4 % (39.0-51.0) Mean Corpuscular Volume 88.7 FL (80.0-100.0) 88.9 FL (80.0-100.0) Mean Corpuscular Hemoglobin 27.7 PG (27.0-34.0) 28.4 PG (27.0-34.0) Mean Corpuscular Hemoglobin Concent 31.2 % (32.0-36.0) 32.0 % (32.0-36.0) Red Cell Distribution Width 18.4 % (11.6-17.2) 18.1 % (11.6-17.2) Platelet Count 235 TH/MM3 (150-450) 215 TH/MM3 (150-450) Mean Platelet Volume 9.1 FL (7.0-11.0) 9.7 FL (7.0-11.0) Neutrophils (%) (Auto) 87.5 % (16.0-70.0) Lymphocytes (%) (Auto) 3.6 % (9.0-44.0) Monocytes (%) (Auto) 7.9 % (0.0-8.0) Eosinophils (%) (Auto) 0.4 % (0.0-4.0) Basophils (%) (Auto) 0.6 % (0.0-2.0) Neutrophils # (Auto) 13.5 TH/MM3 (1.8-7.7) Lymphocytes # (Auto) 0.6 TH/MM3 (1.0-4.8) Monocytes # (Auto) 1.2 TH/MM3 (0-0.9) Eosinophils # (Auto) 0.1 TH/MM3 (0-0.4) Basophils # (Auto) 0.1 TH/MM3 (0-0.2) CBC Comment AUTO DIFF Differential Total Cells Counted 100 Neutrophils % (Manual) 86 % (16-70) Band Neutrophils % 3 % (0-6) Lymphocytes % 3 % (9-44) Monocytes % 7 % (0-8) Neutrophils # (Manual) 13.9 TH/MM3 (1.8-7.7) Myelocytes 1 % (0-0) Differential Comment FINAL DIFF MANUAL Platelet Estimate NORMAL (NORMAL) Platelet Morphology Comment ENLARGED (NORMAL) Basophilic Stippling FAINT (NORMAL) Prothrombin Time 11.3 SEC (9.8-11.6) Prothromb Time International Ratio 1.0 RATIO Blood Urea Nitrogen 22 MG/DL (7-18) Creatinine 1.35 MG/DL (0.60-1.30) Random Glucose 172 MG/DL (74-106) Calcium Level 9.2 MG/DL (8.5-10.1) Phosphorus Level 5.2 MG/DL (2.5-4.9) Magnesium Level 2.6 MG/DL (1.5-2.5) Sodium Level 143 MEQ/L (136-145) Potassium Level 4.4 MEQ/L (3.5-5.1) Chloride Level 103 MEQ/L (98-107) Carbon Dioxide Level 36.0 MEQ/L (21.0-32.0) Anion Gap 4 MEQ/L (5-15) Estimat Glomerular Filtration Rate 54 ML/MIN (>89) Lactic Acid Level 2.4 mmol/L (0.4-2.0) Ammonia 45 MCMOL/L (11-32) Digoxin Level 1.9 NG/ML (0.8-2.0) Urine Color YELLOW (YELLW/STRAW) Urine Turbidity CLEAR (CLEAR) Urine pH 5.5 (5.0-8.5) Urine Specific [place] 1.011 (1.002-1.035) Urine Protein NEG mg/dL (NEG-TRACE) Urine Glucose (UA) NEG mg/dL (NEG) Urine Ketones NEG mg/dL (NEG) Urine Occult Blood MOD (NEG) Urine Nitrite NEG (NEG) Urine Bilirubin NEG (NEG) Urine Urobilinogen LESS THAN 2.0 MG/DL (LESS Urine Leukocyte Esterase MOD (NEG) Urine RBC 63 /hpf (0-3) Urine WBC 22 /hpf (0-5) Urine Squamous Epithelial Cells <1 /hpf (0-5) Urine Sperm RARE (NONE) Microscopic Urinalysis Comment CATH-CULTURE IND Blood Gas Puncture Site ART LINE Blood Gas Patient Temperature 98.6 Blood Gas HCO3 32 mmol/L (22-26) Blood Gas Base Excess 5.8 mmol/L (-2-2) Blood Gas Oxygen Saturation 93 % (90-100) Arterial Blood pH 7.31 (7.380-7.420) Arterial Blood Partial Pressure CO2 66 mmHg (38-42) Arterial Blood Partial Pressure O2 80 mmHg (61-120) Arterial Blood Oxygen Content 11.1 Vol % (12.0-20.0) Arterial Blood Carboxyhemoglobin 1.8 % (0-4) Arterial Blood Methemoglobin 0.9 % (0-2) Blood Gas Hemoglobin 8.4 G/DL (12.0-16.0) Oxygen Delivery Device VENTILATOR Blood Gas Ventilator Setting COMMENT Blood Gas Inspired Oxygen 50 % Test 07/13/17 22:15 07/14/17 03:20 07/14/17 05:52 07/14/17 10:16 Hemoglobin 8.1 GM/DL (13.0-17.0) 7.8 GM/DL (13.0-17.0) Hematocrit 25.5 % (39.0-51.0) 24.5 % (39.0-51.0) White Blood Count 15.8 TH/MM3 (4.0-11.0) Red Blood Count 2.83 MIL/MM3 (4.50-5.90) Mean Corpuscular Volume 86.4 FL (80.0-100.0) Mean Corpuscular Hemoglobin 27.7 PG (27.0-34.0) Mean Corpuscular Hemoglobin Concent 32.1 % (32.0-36.0) Red Cell Distribution Width 17.4 % (11.6-17.2) Platelet Count 266 TH/MM3 (150-450) Mean Platelet Volume 9.2 FL (7.0-11.0) Neutrophils (%) (Auto) 88.7 % (16.0-70.0) Lymphocytes (%) (Auto) 2.6 % (9.0-44.0) Monocytes (%) (Auto) 7.7 % (0.0-8.0) Eosinophils (%) (Auto) 0.6 % (0.0-4.0) Basophils (%) (Auto) 0.4 % (0.0-2.0) Neutrophils # (Auto) 14.0 TH/MM3 (1.8-7.7) Lymphocytes # (Auto) 0.4 TH/MM3 (1.0-4.8) Monocytes # (Auto) 1.2 TH/MM3 (0-0.9) Eosinophils # (Auto) 0.1 TH/MM3 (0-0.4) Basophils # (Auto) 0.1 TH/MM3 (0-0.2) CBC Comment DIFF FINAL Differential Comment Blood Urea Nitrogen 23 MG/DL (7-18) Creatinine 1.20 MG/DL (0.60-1.30) Random Glucose 113 MG/DL (74-106) Calcium Level 9.5 MG/DL (8.5-10.1) Phosphorus Level 1.2 MG/DL (2.5-4.9) Magnesium Level 2.3 MG/DL (1.5-2.5) Sodium Level 145 MEQ/L (136-145) Potassium Level 3.5 MEQ/L (3.5-5.1) Chloride Level 104 MEQ/L (98-107) Carbon Dioxide Level 34.5 MEQ/L (21.0-32.0) Anion Gap 7 MEQ/L (5-15) Estimat Glomerular Filtration Rate 61 ML/MIN (>89) Blood Gas Puncture Site ART LINE ART LINE Blood Gas Patient Temperature 98.6 98.6 Blood Gas HCO3 32 mmol/L (22-26) 31 mmol/L (22-26) Blood Gas Base Excess 8.7 mmol/L (-2-2) 6.1 mmol/L (-2-2) Blood Gas Oxygen Saturation 90 % (90-100) 68 % (90-100) Arterial Blood pH 7.51 (7.380-7.420) 7.41 (7.380-7.420) Arterial Blood Partial Pressure CO2 40 mmHg (38-42) 49 mmHg (38-42) Arterial Blood Partial Pressure O2 60 mmHg (61-120) 38 mmHg (61-120) Arterial Blood Oxygen Content 10.2 Vol % (12.0-20.0) 9.7 Vol % (12.0-20.0) Arterial Blood Carboxyhemoglobin 2.1 % (0-4) 1.5 % (0-4) Arterial Blood Methemoglobin 1.1 % (0-2) 1.1 % (0-2) Blood Gas Hemoglobin 8.0 G/DL (12.0-16.0) 10.2 G/DL (12.0-16.0) Oxygen Delivery Device VENT AMBU BAG Blood Gas Ventilator Setting Blood Gas Inspired Oxygen 50 % 100 % Blood Gas Liter Flow 15 L/M Test 07/14/17 10:35 07/14/17 10:54 07/14/17 11:05 07/14/17 21:45 Prothrombin Time 11.2 SEC (9.8-11.6) Prothromb Time International Ratio 1.0 RATIO Blood Gas Puncture Site ART LINE Blood Gas Patient Temperature 98.6 Blood Gas HCO3 32 mmol/L (22-26) Blood Gas Base Excess 7.6 mmol/L (-2-2) Blood Gas Oxygen Saturation 98 % (90-100) Arterial Blood pH 7.44 (7.380-7.420) Arterial Blood Partial Pressure CO2 48 mmHg (38-42) Arterial Blood Partial Pressure O2 321 mmHg (61-120) Arterial Blood Oxygen Content 14.1 Vol % (12.0-20.0) Arterial Blood Carboxyhemoglobin 1.5 % (0-4) Arterial Blood Methemoglobin 0.9 % (0-2) Blood Gas Hemoglobin 9.7 G/DL (12.0-16.0) Oxygen Delivery Device VENTILATOR Blood Gas Ventilator Setting PC/AC Blood Gas Inspired Oxygen 100 % Hemoglobin 9.6 GM/DL (13.0-17.0) 9.8 GM/DL (13.0-17.0) Hematocrit 30.1 % (39.0-51.0) 30.3 % (39.0-51.0) Test 07/14/17 23:23 07/15/17 04:00 07/15/17 04:50 07/15/17 11:50 Blood Gas Puncture Site ART LINE ART LINE Blood Gas Patient Temperature 98.6 98.6 Blood Gas HCO3 29 mmol/L (22-26) 27 mmol/L (22-26) Blood Gas Base Excess 7.0 mmol/L (-2-2) 6.0 mmol/L (-2-2) Blood Gas Oxygen Saturation 98 % (90-100) 97 % (90-100) Arterial Blood pH 7.63 (7.380-7.420) 7.69 (7.380-7.420) Arterial Blood Partial Pressure CO2 28 mmHg (38-42) 22 mmHg (38-42) Arterial Blood Partial Pressure O2 328 mmHg (61-120) 182 mmHg (61-120) Arterial Blood Oxygen Content 14.3 Vol % (12.0-20.0) 13.6 Vol % (12.0-20.0) Arterial Blood Carboxyhemoglobin 1.6 % (0-4) 1.7 % (0-4) Arterial Blood Methemoglobin 1.1 % (0-2) 1.1 % (0-2) Blood Gas Hemoglobin 9.8 G/DL (12.0-16.0) 9.7 G/DL (12.0-16.0) Oxygen Delivery Device VENTILATOR Blood Gas Ventilator Setting COMMENT COMMENT Blood Gas Inspired Oxygen 90 % 60 % Hemoglobin 9.7 GM/DL (13.0-17.0) 9.0 GM/DL (13.0-17.0) Hematocrit 28.4 % (39.0-51.0) 27.5 % (39.0-51.0) Blood Urea Nitrogen 23 MG/DL (7-18) Creatinine 1.34 MG/DL (0.60-1.30) Random Glucose 162 MG/DL (74-106) Calcium Level 9.3 MG/DL (8.5-10.1) Phosphorus Level 0.7 MG/DL (2.5-4.9) Magnesium Level 2.0 MG/DL (1.5-2.5) Sodium Level 143 MEQ/L (136-145) Potassium Level 2.7 MEQ/L (3.5-5.1) Chloride Level 103 MEQ/L (98-107) Carbon Dioxide Level 28.3 MEQ/L (21.0-32.0) Anion Gap 12 MEQ/L (5-15) Estimat Glomerular Filtration Rate 54 ML/MIN (>89) Test 07/15/17 16:35 Potassium Level 3.2 MEQ/L (3.5-5.1) Result Diagram: 07/15/17 1150 07/15/17 1635 Microbiology Microbiology Date/Time Source Procedure Growth Status 07/13/17 20:00 Urine Catheterized Urine Urine Culture - Final NO GROWTH IN 48 HOURS. Complete Imaging Last Impressions Chest X-Ray 07/15/17 0600 Signed Impressions: Service Date/Time: July 04:58 - CONCLUSION: No significant change. Cole Nieves MD CT Angiography 07/13/17 0000 Signed Impressions: Service Date/Time: Thursday, July 13, 2017 18:43 - CONCLUSION: No evidence of pulmonary embolism Cole Saleh MD Abdomen/Pelvis CT 07/10/17 0000 Signed Impressions: Service Date/Time: Monday, July 10, 2017 20:38 - CONCLUSION: 1. Bilateral pleural effusions and lower lobe consolidation, right greater than left. 2. Distended urinary bladder with smooth margins and no focal opacities within the lumen. 3. No evidence of hydronephrosis. 4. No dilated loops of small bowel. Gas is seen in the lumen of the colon down to the level of the rectum. Linwood Kramer MD Lower Extremity Ultrasound 07/06/17 0000 Signed Impressions: Service Date/Time: Thursday, July 06, 2017 13:20 - CONCLUSION: 1. Probable large hematoma in the right calf this measures at least 36 x 5 x 7.6 cm. Please see above discussion. Srikanth Ware MD Procedures * 07/14/17 - bronchoscopy with asystolic arrest ROSC 3 minutes * 07/13/17 - asystolic arrest, intubated ROSC 10 minutes * 07/14/17 - Arterial line placed right radial * 07/11/17 - extubated * 07/10/17 - EGD/ colonoscopy. Colon biopsy positive mod diff adenocarcinoma. * 07/09/17 - reintubated, I & D of right calf with partial closure * 07/07/17 - extubated * 07/06/17 - thoracentesis for removal of 2.2. liters. * 07/06/17 - intubated postoperatively * 07/06/17 - evacuation of hematoma with fasciotomy right calf with wound vac placement for necrotizing fasciitis. . Assessment and Plan Disease Oriented Problem List: (1) Asystole (2) Acute respiratory failure (3) Necrotizing fasciitis (4) Compartment syndrome of lower extremity (5) Atrial fibrillation with RVR (6) Morbid obesity (7) Cardiomyopathy (8) Unspecified psychosis (9) Cellulitis (10) Colon cancer Comment: invasive moderately differentiated adenocarcinoma of colon . (11) Acute renal insufficiency Symptom Scale: (1) Pain 0-10 Scale: Unable to quantify (2) Dyspnea 0-10 Scale: Unable to quantify Comment[facility] FiO[facility]%, PEEP 15. (3) Hypotension 0-10 Scale: Unable to quantify Comment: On Levophed Pertinent Non-Medical Issues Psychosocial: Single. homeless. Unknown family. Spiritual: None. Legal:Patient is incapacitated to make his own health care decision, he is not expected to regain capacity. Attempting to identify family or friends to make medical decisions. Review of CM notes, [employer] was run and identified possible family Belkis Flanagan in [place], [place] [phone]. Madyson Crow LCSW left message at this number to determine if she is related. Will await return call. If no family identified may need to consider social work advantage assistance. Ethical issues impacting care: No known concerns at this time. . Important Contacts No family has been identified. . Prognosis Overall poor prognosis. . Code Status: Full Code Plan * Patient is incapacitated to make his own health care decision, he is not expected to regain capacity. Attempting to identify family or friends to make medical decisions. Review of CM notes, [employer] was run and identified possible family Belkis Flanagan in [place], [place] [phone]. Madyson Crow LCSW spoke with Belkis Flanagan, she reported she is not related to the patient. Will consult [employer]. * FULL CODE * 07/15/17 - Continue aggressive care for now. [employer] has been consulted to assist with medical decision making, anticipate being able to speak with them on 07/16/17 to clarify goals. * Discussed with Dr. Jeff, nurse, Lulu and manager hospitality, Melva. * SYMPTOMS: pain: due to necrotizing fasciitis, recent asystolic arrest x 2, colon cancer, prolonged hospital course, bedbound status, etc. Unresponsive. No obvious signs of pain. Dyspnea: on mech vent, FiO2 100%, PEEP 15. Hypotension: on Levo. No new medication recommendations at this time. * Palliative care will continue to follow to assist with further clarification of treatment goals once legal decision maker has been identified. . Attestation To help prompt me to consider important information that might be impacting today's encounter and assessment, information from prior notes written by myself or my colleagues may have been "brought forward" into today's note. My signature on this note, however, is an attestation that I personally performed the exam, history, and/or decision-making noted today, and, unless otherwise indicated, the interactions with patient, family, and staff as well as the review of records all occurred today. I also attest that the listed assessment and stated plan reflect my best clinical judgment today based on the combination of historical information, prior notes, and today's exam/ interactions. When time spent is documented, it refers only to time spent today by the signer, or if indicated, combined time spent today by collaborating physician/nurse practitioner. Arlen Aguiar Jul 15, 2017 17:49
--- NOTE | 2017-07-15 19:57 | PD.CARD.PN ---
Subjective Subjective Remarks Intubated, unresponsive Objective Medications Administered Medications Medications (Trade) Dose Ordered Sig/Zeinab Route PRN Reason Start Time Stop Time Status Last Admin Dose Admin Senna/Docusate Sodium (Mehnaz-Colace) 1 tab BID PO 06/28/17 21:00 07/15/17 09:10 Guaifenesin (Mucinex Er) 600 mg BID PO 06/28/17 21:00 07/14/17 09:26 Albumin Human (Albumin 25% Inj) 25 gm Q12H IV 07/02/17 14:00 07/15/17 13:34 Digoxin (Lanoxin) 0.25 mg DAILY PO 07/02/17 16:45 07/15/17 09:10 Lisinopril (Prinivil) 10 mg DAILY PO 07/05/17 09:00 Future hold 07/14/17 09:26 Morphine Sulfate (Morphine Inj) 2 mg Q3H PRN IV PUSH pain 1-10 07/06/17 20:00 07/12/17 01:46 Sodium Chloride (NS Flush) 2 ml BID .XX 07/06/17 21:00 07/15/17 09:09 Chlorhexidine Gluconate (Chlorhexidine 2% Cloth) Taper DAILY@04 TOP 07/07/17 04:00 07/03/18 03:59 07/08/17 05:31 Potassium Bicarb/ Potassium Chloride (K-Lyte Cl Eff) 25 meq Q12HR PO 07/07/17 09:00 07/14/17 09:26 Potassium Chloride 100 ml @ 25 mls/hr UNSCH PRN IV ELECTROLYTE REPLACEMENT 07/07/17 18:30 07/15/17 17:23 Potassium Bicarb/ Potassium Chloride (K-Lyte Cl Eff) 50 meq UNSCH PRN PO ELECTROLYTE REPLACEMENT 07/07/17 18:30 07/14/17 04:27 Potassium Phosphate 30 mmol/ Sodium Chloride 260 ml @ 43.333 mls/ hr UNSCH PRN IV ELECTROLYTE REPLACEMENT 07/07/17 18:30 07/07/17 18:55 Lorazepam (Ativan Inj) 1 mg Q4H PRN IV PUSH AGITATION AND/OR HALLUCINATION 07/08/17 09:15 07/13/17 22:18 Pantoprazole Sodium (Protonix Inj) 40 mg Q12H IV PUSH 07/08/17 16:00 07/15/17 15:18 Chlorhexidine Gluconate (Peridex 0.12% Liq) 15 ml BID@08,20 MT 07/09/17 20:00 07/15/17 09:09 Carvedilol (Coreg) 25 mg Q12HR PO 07/12/17 10:00 07/14/17 21:01 Propofol 100 ml @ 4.41 mls/hr TITRATE PRN IV SEDATION 07/13/17 18:15 07/15/17 18:58 Acetylcysteine (Mucomyst 20% Neb) 2 ml Q6HR NEB NEB 07/14/17 16:00 07/16/17 16:00 07/15/17 07:56 Milrinone Lactate 20 mg/Sodium Chloride 100 ml @ 16.92 mls/ hr Q5H55M IV 07/14/17 11:34 07/15/17 17:12 Albuterol/ Ipratropium (Duoneb Neb) 1 ampule Q6HR NEB NEB 07/14/17 12:00 07/15/17 07:56 Norepinephrine Bitartrate 250 ml @ 7.5 mls/hr TITRATE PRN IV Maintain MAP > 65 mmHg 07/14/17 23:15 07/15/17 14:11 Vasopressin 40 units/Dextrose 100 ml @ 1.5 mls/hr Q24H IV 07/14/17 23:28 07/14/17 23:52 Vital Signs / I&O Vital Signs Date Time Temp Pulse Resp B/P (MAP) Pulse Ox O2 Delivery O2 Flow Rate FiO2 07/15/17 18:30 111 151/86 07/15/17 18:00 111 07/15/17 17:14 100 60 07/15/17 17:12 118 139/80 07/15/17 16:00 60 07/15/17 16:00 116 07/15/17 16:00 99.7 116 14 146/81 (102) 100 07/15/17 15:45 114 160/93 07/15/17 15:00 118 162/91 07/15/17 14:11 118 145/84 07/15/17 14:00 118 07/15/17 12:51 100 60 07/15/17 12:00 120 07/15/17 12:00 60 07/15/17 12:00 100.4 120 14 150/93 (112) 100 07/15/17 10:00 123 07/15/17 10:00 123 151/91 07/15/17 09:15 123 153/90 07/15/17 09:09 128 176/94 07/15/17 09:08 128 176/94 07/15/17 08:00 60 07/15/17 08:00 100.9 121 14 163/96 (118) 100 07/15/17 08:00 121 07/15/17 07:52 93 60 07/15/17 07:44 96 60 07/15/17 07:35 60 07/15/17 07:00 100 Mechanical Ventilator 60 07/15/17 06:00 114 07/15/17 04:43 126 164/93 07/15/17 04:00 101.3 119 16 166/92 (116) 100 07/15/17 04:00 119 07/15/17 04:00 60 07/15/17 04:00 100 60 07/15/17 02:00 118 07/15/17 01:35 119 162/97 07/15/17 00:02 100 75 07/15/17 00:00 119 07/15/17 00:00 101.1 119 16 138/88 (105) 100 07/15/17 00:00 60 07/14/17 23:52 120 138/88 07/14/17 23:25 131 118/79 07/14/17 23:03 122 146/89 07/14/17 22:00 117 07/14/17 20:36 100 90 07/14/17 20:35 118 143/94 07/14/17 20:00 100.9 101 16 134/67 (89) 100 07/14/17 20:00 119 07/14/17 20:00 100 I/O 07/14/17 07/14/17 07/14/17 07/15/17 07/15/17 07/15/17 07:00 15:00 23:00 07:00 15:00 23:00 Intake Total 652 ml 650 ml 2093 ml 1385.8 ml 948 ml 835 ml Output Total 4350 ml 1600 ml 1250 ml 700 ml Balance -3698 ml 650 ml 493 ml 135.8 ml 948 ml 135 ml Intake Oral 0 ml 0 ml IV Total 92 ml 2033 ml 1385.8 ml 948 ml 675 ml Albumin 100 ml Packed Cells 400 ml 400 ml Blood Product IV Normal Saline Flush 40 ml 250 ml Other 120 ml 60 ml 60 ml Output Urine Total 4200 ml 1400 ml 1250 ml 575 ml Gastric Drainage Total 150 ml 150 ml 25 ml Drainage Total 0 ml 50 ml 100 ml # Bowel Movements 3 0 Physical Exam GENERAL: Intubated, unresponsive. SKIN: Warm and dry. HEAD: Normocephalic. EYES: No scleral icterus. No injection or drainage. NECK: Supple, trachea midline. No JVD or lymphadenopathy. CARDIOVASCULAR: Irreg, without murmurs, gallops, or rubs. RESPIRATORY: Few rhonchi, distant BS. GASTROINTESTINAL: Abdomen soft, obese MUSCULOSKELETAL: No cyanosis, LE dressed Laboratory Laboratory Tests Test 07/14/17 21:45 07/14/17 23:23 07/15/17 04:00 07/15/17 04:50 Hemoglobin 9.8 GM/DL 9.7 GM/DL Hematocrit 30.3 % 28.4 % Blood Gas Puncture Site ART LINE ART LINE Blood Gas Patient Temperature 98.6 98.6 Blood Gas HCO3 29 mmol/L 27 mmol/L Blood Gas Base Excess 7.0 mmol/L 6.0 mmol/L Blood Gas Oxygen Saturation 98 % 97 % Arterial Blood pH 7.63 7.69 Arterial Blood Partial Pressure CO2 28 mmHg 22 mmHg Arterial Blood Partial Pressure O2 328 mmHg 182 mmHg Arterial Blood Oxygen Content 14.3 Vol % 13.6 Vol % Arterial Blood Carboxyhemoglobin 1.6 % 1.7 % Arterial Blood Methemoglobin 1.1 % 1.1 % Blood Gas Hemoglobin 9.8 G/DL 9.7 G/DL Oxygen Delivery Device VENTILATOR Blood Gas Ventilator Setting COMMENT COMMENT Blood Gas Inspired Oxygen 90 % 60 % Blood Urea Nitrogen 23 MG/DL Creatinine 1.34 MG/DL Random Glucose 162 MG/DL Calcium Level 9.3 MG/DL Phosphorus Level 0.7 MG/DL Magnesium Level 2.0 MG/DL Sodium Level 143 MEQ/L Potassium Level 2.7 MEQ/L Chloride Level 103 MEQ/L Carbon Dioxide Level 28.3 MEQ/L Anion Gap 12 MEQ/L Estimat Glomerular Filtration Rate 54 ML/MIN Test 07/15/17 11:50 07/15/17 16:35 Hemoglobin 9.0 GM/DL Hematocrit 27.5 % Potassium Level 3.2 MEQ/L Imaging Last 24 hours Impressions Chest X-Ray 07/15/17 0600 Signed Impressions: Service Date/Time: July 04:58 - CONCLUSION: No significant change. Cole Nieves MD Assessment and Plan Problem List: (1) Acute respiratory failure ICD Codes: J96.00 - Acute respiratory failure, unspecified whether with hypoxia or hypercapnia (2) Morbid obesity ICD Codes: E66.01 - Morbid (severe) obesity due to excess calories (3) Atrial fibrillation with RVR ICD Codes: I48.91 - Unspecified atrial fibrillation Status: Acute (4) Cardiomyopathy ICD Codes: I42.9 - Cardiomyopathy, unspecified (5) Pleural effusion ICD Codes: J90 - Pleural effusion, not elsewhere classified Status: Acute (6) ETOH abuse ICD Codes: F10.10 - Alcohol abuse, uncomplicated Assessment and Plan Continue vent support. On pressors, desaturating with lower BP. Cont ICU care. Continue rate control of AF. Echo with moderate LV dysfunction, no intracardiac shunt noted. Overall very poor prognosis. Palliative care consulted. Blair Krishnamurthy MD Jul 15, 2017 19:57
[2017-07-15] MEDS: VASOPRESSIN INJ 40 UNITS in DEXTROSE 5% IN WATER 100ML INJ 98 ML IV SCH ×2 (23:28)
[2017-07-16] VITALS (17 sets, daily range): BP systolic 111–165; BP diastolic 62–84; PULSE 88–113; RESP 13–18; TEMP 98.2–99.5; O2SAT 99–100
[2017-07-16 00:06] LABS: HEMATOCRIT 25.1 % (39.0-51.0); REVIEW FLAG FINAL
[2017-07-16] MEDS: PROPOFOL 1000 MG/100 ML INJ 100 ML IV PRN ×7 (01:45→22:39)
[2017-07-16] MEDS: ALBUMIN HUMAN 25% 25 GM/100 ML BAGP IV SCH ×2 (02:23→14:46)
[2017-07-16] MEDS: PANTOPRAZOLE SODIUM 40 MG VIAL IV PUSH SCH ×2 (03:33→16:45)
[2017-07-16] MEDS: RESP: ACETYLCYSTEINE 20% 30 ML NEB NEB SCH ×3 (03:45→16:00)
[2017-07-16] MEDS: RESP: ALBUTEROL 2.5 MG/IPRATROPIUM 0.5 MG NEB (SCH) NEB ×4 (03:45→21:17)
[2017-07-16] MEDS: CHLORHEXIDINE GLUCONATE 2 % 1 PACK (2 CLOTHS) TOP SCH (04:00)
[2017-07-16] MEDS: MILRINONE INJ 20 MG in SODIUM CHLORIDE 0.9% INJ 80 ML IV SCH ×2 (04:21→12:04)
[2017-07-16] MEDS: NOREPINEPHRINE-DEXTROSE DRIP 250 ML IV PRN ×3 (04:29→17:36)
[2017-07-16 04:58] LABS: HEMATOCRIT 25.3 % (39.0-51.0); REVIEW FLAG FINAL
[2017-07-16 05:28] LABS: BICARBONATE 29.9 MEQ/L (21.0-32.0); POTASSIUM 3.2 MEQ/L (3.5-5.1)
[2017-07-16] MEDS: CHLORHEXIDINE 0.12% (ORAL KIT) 15 ML CUP MT SCH ×2 (07:34→19:52)
--- NOTE | 2017-07-16 07:35 | PD.ORT.PN ---
Subjective Subjective Remarks POD 7 s/p I&D right leg patient intubated/sedated. Objective Vitals Vital Signs Date Time Temp Pulse Resp B/P (MAP) Pulse Ox O2 Delivery O2 Flow Rate FiO2 07/16/17 06:00 103 07/16/17 04:29 101 169/80 07/16/17 04:21 103 144/76 07/16/17 04:00 98.6 101 16 162/83 (109) 100 07/16/17 04:00 40 07/16/17 04:00 101 07/16/17 03:44 100 40 07/16/17 02:00 99 07/16/17 00:28 100 50 07/16/17 00:00 60 07/16/17 00:00 98 07/16/17 00:00 98.2 103 13 127/72 (90) 100 07/15/17 23:30 135/75 07/15/17 23:00 128/69 07/15/17 22:02 106 127/73 07/15/17 22:01 106 130/71 07/15/17 22:00 100 07/15/17 20:57 100 50 07/15/17 20:06 100 60 07/15/17 20:00 60 07/15/17 20:00 98.6 112 12 144/87 (106) 100 07/15/17 19:00 100 Mechanical Ventilator 60 07/15/17 18:30 111 151/86 07/15/17 18:00 111 07/15/17 17:14 100 60 07/15/17 17:12 118 139/80 07/15/17 16:00 60 07/15/17 16:00 116 07/15/17 16:00 99.7 116 14 146/81 (102) 100 07/15/17 15:45 114 160/93 07/15/17 15:00 118 162/91 07/15/17 14:11 118 145/84 07/15/17 14:00 118 07/15/17 12:51 100 60 07/15/17 12:00 120 07/15/17 12:00 60 07/15/17 12:00 100.4 120 14 150/93 (112) 100 07/15/17 10:00 123 07/15/17 10:00 123 151/91 07/15/17 09:15 123 153/90 07/15/17 09:09 128 176/94 07/15/17 09:08 128 176/94 07/15/17 08:00 60 07/15/17 08:00 100.9 121 14 163/96 (118) 100 07/15/17 08:00 121 07/15/17 07:52 93 60 07/15/17 07:44 96 60 07/15/17 07:35 60 I/O 07/15/17 07/15/17 07/15/17 07/16/17 07/16/17 07/16/17 07:00 15:00 23:00 07:00 15:00 23:00 Intake Total 1385.8 ml 948 ml 1385 ml 838 ml Output Total 1250 ml 700 ml 200 ml Balance 135.8 ml 948 ml 685 ml 638 ml Intake Oral 0 ml IV Total 1385.8 ml 948 ml 1225 ml 838 ml Albumin 100 ml Other 60 ml Output Urine Total 1250 ml 575 ml 150 ml Gastric Drainage Total 25 ml Drainage Total 100 ml 50 ml # Bowel Movements 0 Result Diagram: 07/16/170 07/16/17 0440 Imaging Last 24 hours Impressions Chest X-Ray 07/13/17 1706 Signed Impressions: Service Date/Time: Thursday, July 13, 2017 17:03 - CONCLUSION: 1. Stable tubes and lines, as above. 2. Stable, right greater than left, small bilateral pleural effusions and associated lower lobe airspace disease. 3. No significant interval change. Blas Hills MD Objective Remarks RLE: dressings clean and dry. intact. NVI. +vac with good seal. area of necrosis over medial aspect of wound Assessment & Plan Assessment and Plan 1) Right Leg Hematoma with compartment syndrome s/p Fasciotomy with I&D vac application -Second irrigation debridement with partial wound closure and wound VAC application applied POD#7/ last vac change day #0 Maintain wound VAC at all times not stable for surgery vac change at bedside performed today spoke with Dr Jeff and prognosis not good. if patient improves significantly, would consider skin graft of right leg. however, at current course, will plan on vac changes at bedside. Martir Moreno Jul 16, 2017 07:35
--- NOTE | 2017-07-16 08:50 | HHI.CCPN ---
Subjective Remarks/Hospital Course [id number] with multiple medical problems. He was initially admitted to the hospital on 06/28/17 with a chief complaint of shortness of breath and swelling of both legs. The CAT scan of the chest revealed large pleural effusion on the right however patient was refusing thoracentesis. He was also diagnosed with a new onset of atrial fibrillation and has been on anticoagulation while in the hospital. He was also complaining of approximately two day history of increasing leg pain and swelling and significant bruising. His pain became unbearable and he was taken emergently to operating room. He underwent fasciotomy incision and drainage of right calf hematoma and postoperatively he was admitted to ICU intubated. His chest x-ray repeat showed significant worsening of pleural effusion, patient was difficult to ventilate with high peak pressures on the ventilator, also his blood pressure showed hemodynamic compromise. The emergent thoracentesis was performed in the ICU with drainage of 2.2 L off fluid. SUBJECTIVE: 07/07/17: Patient remains intubated sedated. On lightening sedation he becomes very agitated FiO2. Chest x-ray post thoracentesis shows significant improvement in right effusion. Intermittently hypotensive not on pressors. s/p Incision and drainage of right calf hematoma, compartment release anterior and lateral compartments right calf, VAC dressing. 07/08/17: No acute events overnight. The patient continues on Precedex infusion currently at 0.4mcgs/kg/hr, plan to wean Precedex off and provide Ativan when necessary for agitation. Hemoglobin notably 7.0 today type and screen ordered for plans for OR wound closure on 07/09/17. The patient continues with symptoms of paranoia, but cooperative this a.m. Plan for swallow study to initiate feed. 07/09: Patient's hemoglobin continued to decline yesterday to 6.4.. The patient was transfused with 2 units RBCs .Yesterday the patient had a large melanotic stool also hematuria. Coagulation studies obtained within normal limits. GI was consulted, plan for colonoscopy today. Overnight the urine has cleared, hematuria resolved. The patient has a condom catheter good urinary output. Patient continues to be wean off phenylephrine. Patient continues to have paranoia, bouts of confusion. 07/10: Yesterday the patient underwent I&D of the right calf and partial closure of the right calf wound, returned to ICU intubated and sedated placed on propofol and fentanyl infusion. The patient also underwent upper endoscopy, an attempted colonoscopy but was unsuccessful secondary to poor prep. The patient received GoLYTELY throughout the night via OGT with plans for repeat colonoscopy today. Hemodynamically the patient continues to be hypotensive, lisinopril placed on hold, carvedilol decreased dosage by half to 12.5 mg. Low- dose phenylephrine infusion continues at 50 mcgs. 07/11: Hemoglobin stable .The patient underwent colonoscopy yesterday afternoon which revealed multiple polyps in the ascending colon as well as one large colonic mass in the hepatic flexure measuring 3-4 cm issues for carcinoma. General surgery and oncology was consulted. CEA lab, colonic biopsy pending. Plan for CPAP trials this a.m. with plans for extubation. 07/12: No acute events overnight. The patient was successfully extubated yesterday afternoon. Plans for OT PT evaluation and out of bed to chair today. The patient currently A. fib beta blockers were being held secondary to hypotension, which has now resolved. Coreg has been reinstituted twice a day along with patient's lisinopril. The patient continues on Lasix 40 mg daily however secondary to hypotension , creatinine increased to 1.47->1.5 today. Psychiatry consulted for competency, and cognitive evaluation. Case management also consulted. Patient's hemoglobin dropped to 7.5 to be transfused with 1 unit packed cells today. 07/13: Patient found in asystole. Patient status post cardiac arrest with ROSC within 10 mins. Patient intubated, received 3 rounds of 1 mg epinephrine, 1 amp of sodium bicarbonate. EKG, stat labs pending. See CPR note. 07/14: Patient notably not moving air no chest excursion on the right. O2 saturation was 97%. Stat chest x-ray performed stat ABG obtained. Patient was noted on CTA last evening postcardiac arrest to have moderate right pleural effusions as well as the chest x-ray this a.m. showed mucus plugging with complete opacification of the right lung. Ultrasound evaluation at bedside was noted that the effusion was spread throughout some plan for IR CT-guided thoracentesis in the near future. Patient was placed on 100%, timeout was performed for bronchoscopy, O2 saturation 97, upon placing the bronchoscope into the endotracheal tube and viewing the lungs the patient notably precipitously desaturated, fiber-optic scope removed. Patient then became bradycardic-> asystole, 100% [id number] was provided at that time with subsequent cardiac arrest 1013. 1mg of epinephrine was given [id number] with 15 cm of PEEP provided, ROSC at 3 minutes. Repeat chest x-ray revealed a right lung open, and now left almost complete opacification. Patient was placed on 100% oxygen and a pressure control mode with high level of PEEP and Mucomyst. Planned repeat bronchoscopy later this afternoon pending on hemodynamic stability. Levophed infusion currently and Milrinone infusion added , EF 30-35%. 07/15: Remains critically ill after cardiopulmonary arrest yesterday. Maximum support in place. 07/16: No significant improvement. Opens eyes, ? tracks. Objective Vital Signs Date Time Temp Pulse Resp B/P (MAP) Pulse Ox O2 Delivery O2 Flow Rate FiO2 07/16/17 06:00 103 07/16/17 04:29 169/80 07/16/17 04:00 98.6 16 100 07/16/17 04:00 40 07/15/17 19:00 Mechanical Ventilator 07/13/17 09:09 4.00 Intake and Output 07/16/17 07/16/17 07/17/17 08:00 16:00 00:00 Intake Total 838 ml Output Total 200 ml Balance 638 ml Result Diagram: 07/16/17 0440 07/16/17 0440 Other Results Microbiology Date/Time Source Procedure Growth Status 07/13/17 20:00 Urine Catheterized Urine Urine Culture - Final NO GROWTH IN 48 HOURS. Complete Imaging Last Impressions Chest X-Ray 07/10/17 0600 Signed Impressions: Service Date/Time: Monday, July 10, 2017 03:44 - CONCLUSION: 1. Support apparatus in good position. Basilar airspace disease slightly improved on the right since July 09. Felipe Medina MD Lower Extremity Ultrasound 07/06/17 0000 Signed Impressions: Service Date/Time: Thursday, July 06, 2017 13:20 - CONCLUSION: 1. Probable large hematoma in the right calf this measures at least 36 x 5 x 7.6 cm. Please see above discussion. Srikanth Ware MD CT Angiography 06/28/17 1327 Signed Impressions: Service Date/Time: Wednesday, June 28, 2017 15:58 - CONCLUSION: 1. No pulmonary embolus identified. 2. Large right-sided pleural effusion with consolidation of the right lower lobe. Srikanth Ware MD Last 24 hours Impressions Chest X-Ray 07/07/17 0000 Signed Impressions: Service Date/Time: Friday, July 07, 2017 01:22 - CONCLUSION: 1. Right thoracentesis without pneumothorax. Felipe Medina MD Objective Remarks GENERAL: Morbidly obese critically ill man. SKIN: Warm and dry. HEAD: Normocephalic. EYES: No scleral icterus. No injection or drainage. NECK: Supple, trachea midline. Orally Intubated. CARDIOVASCULAR: Irreg Irreg rhythm without murmurs, gallops, or rubs. RESPIRATORY: Breath sounds equal bilaterally. Mechanical ventilation, diffuse rhonchi. GASTROINTESTINAL: Abdomen soft, non-tender, nondistended. Few BS. MUSCULOSKELETAL: Status post fasciotomy on the right calf, vac dressing dry and clean. Right foot edema 2+ Capillary refill brisk right lower extremity. Dopplerable pulses right. NEURO EXAM: Opens eyes. Breathes over vent. Procedures 07/09-EGD 07/10-colonoscopy 07/13 asystolic cardiac arrest with ROSC in 10 mins A/P Assessment and Plan Neuro: Possible anoxic brain injury - Neurochecks per ICU protocol - Patient placed on Haldol 07/13 per psychiatry-discontinued - Propofol infusion for ventilator synchrony, after assessment neurologically post cardiac arrest -Immediate neurological assessment postcardiac arrest 07/13/17 patient spontaneously opens eyes, withdraws extremities x 4 with painful, does not track Resp: Acute hypoxemic respiratory failure R Pleural effusion - Reintubated 07/13- cardiac arrest ETT 8.0 at 22 cm at the lip - 07/07 S/P thoracentesis with 2.2 L removed , CT angiogram of 07/13 Bilateral pleural effusions, moderate right pleural effusion, small left pleural effusion. No PE. Patient will need ultrasound or CT-guided thoracentesis by IR in the near future -07/14 chest x-ray and complete opacification of right lung with mediastinal shift left lung free of acute parenchymal opacity. Bronchoscopy attempted, aborted secondary to cardiac arrest -07/14 chest x-ray-Post cardiac arrest-opacification right lung resolved,now almost complete left lung opacification - s/p extubation 07/11 - Followed by agriculture specialist, Dr. Palacios -Planned repeat bronchus if hemodynamically stable -Mechanical ventilation PEEP at 15, pressure control setting maintain minute ventilation at 12L, paralysis, FiO2 100% Duonebs q 6 scheduled and q 2 hr PRN, Mucomyst 20% x 2 days - CVS: New onset Atrial Fibrillation - Cardiology following, Dr. Krishnamurthy afib rate controlled - Carvedilol 25 mg BID- placed on hold - EF of 30-35% with global hypokinesia, mild concentric left ventricular hypertrophy, mild mitral valve regurgitation. - Milrinone 0.375 post cardiac arrest 07/14 - Anticoagulation on hold due surgical procedures and GI Bleeding - Hold po Lasix. Continue IV 40mg q12 -07/13 S/P asystolic cardiac arrest w/ ROSC within 10 mins -07/14 S/P asystolic cardiac arrest with ROSC within 3 minutes - Rate controlled on digoxin. Pulmonary Acute hypoxemic respiratory failure -07/13 intubated 8.0ETT -ABG's and chest x-rays as clinically indicated -Obtain CTA pulmonary-bilateral pleural effusions right greater than left, no PE. Right pleural effusion moderate size, noted to be diffuse throughout thorax. Planned CT-guided thoracentesis by IR in near future -Mucomyst, pressure control ventilation, PEEP currently at 5. Nimbex infusion - Bronch 07/24 ID/Heme/MSK: Right calf hematoma with compartment syndrome - Status post emergent fasciotomy and debridement - DC Meropenem, clindamycin, vancomycin. Place on Zosyn 4.5 GM IV q6h - Follow up panculture - Transfuse to keep hemoglobin more than 7 07/09- S/P I&D right lower extremity with partial wound closure -Wound VAC output less than 100 cc in the last 24 hours -07/07 Pleural fluid negative 07/13 hematemesis -07/12 type and screen, transfuse 1 unit packed cells, Hgb 7.5, 07/13 transfused 1 unit PRBC -Hematology- oncolology Dr. Bryon Rivers-07/14 pathology result adenocarcinoma of the colon. Per Gen. surgery discussion with Jhonatan Gretta patient is a poor surgical candidate. Palliative care consulted GI: -Maintain NPO -Hematemesis noted last night 07/13, Dr. Koch following 1 unit packed red blood cells -Bowel regimen -General surgery-Dr. Naranjo- patient is a poor surgical candidate -Follow GI recommendations : NAZIA -Monitor BMP -Maintain Art -Strict I and os Endo: - Electrolyte replacement per protocol -Monitor BMP MSK: -Continue evaluation of the right lower extremity S/P I&D and partial wound closure with wound VAC DVT GI prophylaxis - Teds SCDs - Hematemesis, prophylaxis heparin SQ discontinued - Pepcid Overall impression: Critically ill man having sustained cardiac arrest twice in last few days. Unstable respiratory status and unable to wean ventilator. Neurological status marginal at present. Critical Care 35 mins Lukas Jeff MD Jul 16, 2017 08:50
[2017-07-16] MEDS: SODIUM CHLORIDE 0.9% FLUSH 10 ML FLUSH SCH ×2 (09:00→19:51)
[2017-07-16] MEDS: DIGOXIN 0.25 MG TAB PO SCH (09:16)
[2017-07-16] MEDS: LISINOPRIL 10 MG TAB PO SCH (09:18)
[2017-07-16] MEDS: POTASSIUM CHLORIDE 25 MEQ EFFERVESCENT TAB PO SCH ×2 (09:18→19:51)
[2017-07-16] MEDS: CARVEDILOL 12.5 MG TAB PO SCH ×2 (09:18→19:53)
[2017-07-16] MEDS: guaiFENesin E.R. 600 MG TAB PO SCH ×2 (09:24→19:51)
[2017-07-16] MEDS: DOCUSATE SODIUM 50 MG/SENNA 8.6 MG TAB PO SCH ×2 (09:24→19:53)
[2017-07-16 12:46] LABS: HEMATOCRIT 25.9 % (39.0-51.0); REVIEW FLAG FINAL
--- NOTE | 2017-07-16 13:19 | PD.CARD.PN ---
Subjective Subjective Remarks Intubated, unresponsive, SBP 120's Objective Medications Administered Medications Medications (Trade) Dose Ordered Sig/Zeinab Route PRN Reason Start Time Stop Time Status Last Admin Dose Admin Senna/Docusate Sodium (Mehnaz-Colace) 1 tab BID PO 06/28/17 21:00 07/16/17 09:24 Guaifenesin (Mucinex Er) 600 mg BID PO 06/28/17 21:00 07/16/17 09:24 Albumin Human (Albumin 25% Inj) 25 gm Q12H IV 07/02/17 14:00 07/16/17 02:23 Digoxin (Lanoxin) 0.25 mg DAILY PO 07/02/17 16:45 07/16/17 09:16 Lisinopril (Prinivil) 10 mg DAILY PO 07/05/17 09:00 Future hold 07/16/17 09:18 Morphine Sulfate (Morphine Inj) 2 mg Q3H PRN IV PUSH pain 1-10 07/06/17 20:00 07/12/17 01:46 Sodium Chloride (NS Flush) 2 ml BID .XX 07/06/17 21:00 07/16/17 09:00 Chlorhexidine Gluconate (Chlorhexidine 2% Cloth) Taper DAILY@04 TOP 07/07/17 04:00 07/03/18 03:59 07/08/17 05:31 Potassium Bicarb/ Potassium Chloride (K-Lyte Cl Eff) 25 meq Q12HR PO 07/07/17 09:00 07/16/17 09:18 Potassium Chloride 100 ml @ 25 mls/hr UNSCH PRN IV ELECTROLYTE REPLACEMENT 07/07/17 18:30 07/15/17 17:23 Potassium Bicarb/ Potassium Chloride (K-Lyte Cl Eff) 50 meq UNSCH PRN PO ELECTROLYTE REPLACEMENT 07/07/17 18:30 07/14/17 04:27 Potassium Phosphate 30 mmol/ Sodium Chloride 260 ml @ 43.333 mls/ hr UNSCH PRN IV ELECTROLYTE REPLACEMENT 07/07/17 18:30 07/07/17 18:55 Lorazepam (Ativan Inj) 1 mg Q4H PRN IV PUSH AGITATION AND/OR HALLUCINATION 07/08/17 09:15 07/13/17 22:18 Pantoprazole Sodium (Protonix Inj) 40 mg Q12H IV PUSH 07/08/17 16:00 07/16/17 03:33 Chlorhexidine Gluconate (Peridex 0.12% Liq) 15 ml BID@08,20 MT 07/09/17 20:00 07/16/17 07:34 Carvedilol (Coreg) 25 mg Q12HR PO 07/12/17 10:00 07/16/17 09:18 Propofol 100 ml @ 4.41 mls/hr TITRATE PRN IV SEDATION 07/13/17 18:15 07/16/17 10:59 Acetylcysteine (Mucomyst 20% Neb) 2 ml Q6HR NEB NEB 07/14/17 16:00 07/16/17 16:00 07/16/17 09:55 Milrinone Lactate 20 mg/Sodium Chloride 100 ml @ 16.92 mls/ hr Q5H55M IV 07/14/17 11:34 07/16/17 12:04 Albuterol/ Ipratropium (Duoneb Neb) 1 ampule Q6HR NEB NEB 07/14/17 12:00 07/16/17 09:55 Norepinephrine Bitartrate 250 ml @ 7.5 mls/hr TITRATE PRN IV Maintain MAP > 65 mmHg 07/14/17 23:15 07/16/17 12:06 Vasopressin 40 units/Dextrose 100 ml @ 1.5 mls/hr Q24H IV 07/14/17 23:28 07/14/17 23:52 Vital Signs / I&O Vital Signs Date Time Temp Pulse Resp B/P (MAP) Pulse Ox O2 Delivery O2 Flow Rate FiO2 07/16/17 12:06 99 137/61 07/16/17 12:04 99 137/71 07/16/17 12:00 101 07/16/17 12:00 99.3 96 18 149/76 (100) 100 07/16/17 12:00 40 07/16/17 10:00 100 40 07/16/17 10:00 98 07/16/17 08:00 40 07/16/17 08:00 110 07/16/17 08:00 99.5 98 14 165/84 (111) 100 07/16/17 07:00 100 Mechanical Ventilator 40 07/16/17 06:00 103 07/16/17 04:29 101 169/80 07/16/17 04:21 103 144/76 07/16/17 04:00 98.6 101 16 162/83 (109) 100 07/16/17 04:00 40 07/16/17 04:00 101 07/16/17 03:44 100 40 07/16/17 02:00 99 07/16/17 00:28 100 50 07/16/17 00:00 60 07/16/17 00:00 98 07/16/17 00:00 98.2 103 13 127/72 (90) 100 07/15/17 23:30 135/75 07/15/17 23:00 128/69 07/15/17 22:02 106 127/73 07/15/17 22:01 106 130/71 07/15/17 22:00 100 07/15/17 20:57 100 50 07/15/17 20:06 100 60 07/15/17 20:00 60 07/15/17 20:00 98.6 112 12 144/87 (106) 100 07/15/17 19:00 100 Mechanical Ventilator 60 07/15/17 18:30 111 151/86 07/15/17 18:00 111 07/15/17 17:14 100 60 07/15/17 17:12 118 139/80 07/15/17 16:00 60 07/15/17 16:00 116 07/15/17 16:00 99.7 116 14 146/81 (102) 100 07/15/17 15:45 114 160/93 07/15/17 15:00 118 162/91 07/15/17 14:11 118 145/84 07/15/17 14:00 118 I/O 07/15/17 07/15/17 07/15/17 07/16/17 07/16/17 07/16/17 07:00 15:00 23:00 07:00 15:00 23:00 Intake Total 1385.8 ml 948 ml 1385 ml 838 ml 550 ml Output Total 1250 ml 700 ml 200 ml Balance 135.8 ml 948 ml 685 ml 638 ml 550 ml Intake Oral 0 ml IV Total 1385.8 ml 948 ml 1225 ml 838 ml 550 ml Albumin 100 ml Other 60 ml Output Urine Total 1250 ml 575 ml 150 ml Gastric Drainage Total 25 ml Drainage Total 100 ml 50 ml # Bowel Movements 0 Physical Exam GENERAL: Intubated, unresponsive. SKIN: Warm and dry. HEAD: Normocephalic. EYES: No scleral icterus. No injection or drainage. NECK: Supple, trachea midline. No JVD or lymphadenopathy. CARDIOVASCULAR: Irreg, without murmurs, gallops, or rubs. RESPIRATORY: Few rhonchi, distant BS. GASTROINTESTINAL: Abdomen soft, obese MUSCULOSKELETAL: No cyanosis, LE dressed Laboratory Laboratory Tests Test 07/15/17 16:35 07/15/17 23:10 07/16/17 04:40 07/16/17 12:00 Potassium Level 3.2 MEQ/L 3.2 MEQ/L Hemoglobin 8.2 GM/DL 8.3 GM/DL 8.3 GM/DL Hematocrit 25.1 % 25.3 % 25.9 % Blood Urea Nitrogen 20 MG/DL Creatinine 0.81 MG/DL Random Glucose 114 MG/DL Calcium Level 9.0 MG/DL Sodium Level 144 MEQ/L Chloride Level 107 MEQ/L Carbon Dioxide Level 29.9 MEQ/L Anion Gap 7 MEQ/L Estimat Glomerular Filtration Rate 97 ML/MIN Assessment and Plan Problem List: (1) Acute respiratory failure ICD Codes: J96.00 - Acute respiratory failure, unspecified whether with hypoxia or hypercapnia (2) Morbid obesity ICD Codes: E66.01 - Morbid (severe) obesity due to excess calories (3) Atrial fibrillation with RVR ICD Codes: I48.91 - Unspecified atrial fibrillation Status: Acute (4) Cardiomyopathy ICD Codes: I42.9 - Cardiomyopathy, unspecified (5) Pleural effusion ICD Codes: J90 - Pleural effusion, not elsewhere classified Status: Acute (6) ETOH abuse ICD Codes: F10.10 - Alcohol abuse, uncomplicated Assessment and Plan No change in patient's condition. Continue vent support. Cont ICU care. Continue rate control of AF. Echo with moderate LV dysfunction, no intracardiac shunt noted. Overall very poor prognosis. Palliative care consulted. Blair Krishnamurthy MD Jul 16, 2017 13:19
--- NOTE | 2017-07-16 13:22 | HHI.HCPN ---
Reason for visit a. To assist with evaluation and management of symptoms including: pain, dyspnea, hypotension. b. To assist medical decision maker(s) with: better understanding of current medical conditions; weighing benefits/burdens of medical treatment options; making medical treatment decisions. . Subjective/Interval History Patient seen and examined in ICU. Discussed with nurse, Marshall and Dr. Jeff. Also met with Veronique Pavon LCSW from [employer] who will be serving as Health care proxy in this patient that has no family. He remains on mech vent. He is off Nimbex. He opens his eyes, seems to track, not following commands. Dr. Jeff wants to give him a few more days to see if he can be medically extubated and feels NO CODE (DNR/ do not reintubate would be medically appropriate). Patient remains critically ill in ICU on mech vent, FiO2 40%. Temp 100.9. Heart rate 99-113. On pressors. Hemoglobin 8.3. Creatinine 0.81. No new imaging. . Family/friend interactions Spoke with Veronique Pavon LCSW with [employer] who is serving as health care proxy decision maker to provide medical update, answer questions and review prognosis. She elects NO CODE and DOES NOT want patient reintubated should he be medically extubated and the coming days. She requests that patient be medicated for comfort should he fail medical extubation. We agreed to provide medical update on 07/19/17 to further clarify treatment goals. Would consider addition to comfort focused care with withdrawal of life support if the patient has further decline or is unable to be medically extubated. Palliative care number provided. Discussed goals of care with Dr. Kim and nurse Marshall to make them aware of healthcare proxy decisions. . Advance Directives Living Will: Never completed Health Care Surrogate: Never completed Durable Power of Lawn Specialist: Never completed Advance Directive Specifics Health Care Surrogate(s): Patient is incapacitated to make his own health care decision, he is not expected to regain capacity. Attempting to identify family or friends to make medical decisions. Review of CM notes, [employer] was run and identified possible family Belkis Flanagan in [place], [place] [phone]. Madyson Crow LCSW left message at this number to determine if she is related. Will await return call. If no family identified may need to consider social work advantage assistance. Significant change in goals: NO CODE. Continue aggressive care short of NO CODE STATUS. IF THE PATIENT IS ABLE TO BE MEDICALLY EXTUBATED IN THE COMING DAYS AND FAILS HEALTH CARE PROXY DOES NOT WANT REINTUBATION AND DESIRES COMFORT MEDS. Objective Vital Signs Date Time Temp Pulse Resp B/P (MAP) Pulse Ox O2 Delivery O2 Flow Rate FiO2 07/16/17 12:06 99 137/61 07/16/17 12:04 99 137/71 07/16/17 12:00 101 07/16/17 12:00 99.3 96 18 149/76 (100) 100 07/16/17 12:00 40 07/16/17 10:00 100 40 07/16/17 10:00 98 07/16/17 08:00 40 07/16/17 08:00 110 07/16/17 08:00 99.5 98 14 165/84 (111) 100 07/16/17 07:00 100 Mechanical Ventilator 40 07/16/17 06:00 103 07/16/17 04:29 101 169/80 07/16/17 04:21 103 144/76 07/16/17 04:00 98.6 101 16 162/83 (109) 100 07/16/17 04:00 40 07/16/17 04:00 101 07/16/17 03:44 100 40 07/16/17 02:00 99 07/16/17 00:28 100 50 07/16/17 00:00 60 07/16/17 00:00 98 07/16/17 00:00 98.2 103 13 127/72 (90) 100 07/15/17 23:30 135/75 07/15/17 23:00 128/69 07/15/17 22:02 106 127/73 07/15/17 22:01 106 130/71 07/15/17 22:00 100 07/15/17 20:57 100 50 07/15/17 20:06 100 60 07/15/17 20:00 60 07/15/17 20:00 98.6 112 12 144/87 (106) 100 07/15/17 19:00 100 Mechanical Ventilator 60 07/15/17 18:30 111 151/86 07/15/17 18:00 111 07/15/17 17:14 100 60 07/15/17 17:12 118 139/80 07/15/17 16:00 60 07/15/17 16:00 116 07/15/17 16:00 99.7 116 14 146/81 (102) 100 07/15/17 15:45 114 160/93 07/15/17 15:00 118 162/91 07/15/17 14:11 118 145/84 07/15/17 14:00 118 Intake & Output 07/16/17 07/16/17 07:00 19:00 Intake Total 1388 ml 550 ml Output Total 200 ml Balance 1188 ml 550 ml IV Total 1388 ml 550 ml Output Urine Total 150 ml Drainage Total 50 ml Physical Exam CONSTITUTIONAL/GENERAL: This is an adequately nourished patient, on mech vent. TUBES/LINES/DRAINS:ETT, OG, left IJ central line, a-line right wrist, bilateral soft wrist restraints, wound vac RLE, Art, SCDs. SKIN: No jaundice, rashes, or lesions. Ecchymoses on upper extremities. RLE dressing/ wound vac. Skin temperature appropriate. Not diaphoretic. EYES: eyes open. ENT: Unable to assess hearing. Nose without bleeding or purulent drainage. Throat difficult to visualize due to tubes. CARDIOVASCULAR: Irregular. RESPIRATORY/CHEST: unlabored respirations on vent. Diminished breath sounds bilaterally, right > left. GASTROINTESTINAL: Abdomen soft, protuberant. Bowel sounds hypoactive. GENITOURINARY: Without palpable bladder distension. Art catheter in place. MUSCULOSKELETAL: Extremities with edema. NEUROLOGICAL: eyes open, appears to be tracking. Does not follow commands. PSYCHIATRIC: eyes open. Diagnostic Tests Laboratory Laboratory Tests Test 07/13/17 17:30 07/13/17 20:00 07/13/17 20:36 07/13/17 22:15 White Blood Count 13.5 TH/MM3 (4.0-11.0) Red Blood Count 2.86 MIL/MM3 (4.50-5.90) Hemoglobin 8.1 GM/DL (13.0-17.0) 8.1 GM/DL (13.0-17.0) Hematocrit 25.4 % (39.0-51.0) 25.5 % (39.0-51.0) Mean Corpuscular Volume 88.9 FL (80.0-100.0) Mean Corpuscular Hemoglobin 28.4 PG (27.0-34.0) Mean Corpuscular Hemoglobin Concent 32.0 % (32.0-36.0) Red Cell Distribution Width 18.1 % (11.6-17.2) Platelet Count 215 TH/MM3 (150-450) Mean Platelet Volume 9.7 FL (7.0-11.0) Prothrombin Time 11.3 SEC (9.8-11.6) Prothromb Time International Ratio 1.0 RATIO Blood Urea Nitrogen 22 MG/DL (7-18) Creatinine 1.35 MG/DL (0.60-1.30) Random Glucose 172 MG/DL (74-106) Calcium Level 9.2 MG/DL (8.5-10.1) Phosphorus Level 5.2 MG/DL (2.5-4.9) Magnesium Level 2.6 MG/DL (1.5-2.5) Sodium Level 143 MEQ/L (136-145) Potassium Level 4.4 MEQ/L (3.5-5.1) Chloride Level 103 MEQ/L (98-107) Carbon Dioxide Level 36.0 MEQ/L (21.0-32.0) Anion Gap 4 MEQ/L (5-15) Estimat Glomerular Filtration Rate 54 ML/MIN (>89) Lactic Acid Level 2.4 mmol/L (0.4-2.0) Ammonia 45 MCMOL/L (11-32) Digoxin Level 1.9 NG/ML (0.8-2.0) Urine Color YELLOW (YELLW/STRAW) Urine Turbidity CLEAR (CLEAR) Urine pH 5.5 (5.0-8.5) Urine Specific [place] 1.011 (1.002-1.035) Urine Protein NEG mg/dL (NEG-TRACE) Urine Glucose (UA) NEG mg/dL (NEG) Urine Ketones NEG mg/dL (NEG) Urine Occult Blood MOD (NEG) Urine Nitrite NEG (NEG) Urine Bilirubin NEG (NEG) Urine Urobilinogen LESS THAN 2.0 MG/DL (LESS Urine Leukocyte Esterase MOD (NEG) Urine RBC 63 /hpf (0-3) Urine WBC 22 /hpf (0-5) Urine Squamous Epithelial Cells <1 /hpf (0-5) Urine Sperm RARE (NONE) Microscopic Urinalysis Comment CATH-CULTURE IND Blood Gas Puncture Site ART LINE Blood Gas Patient Temperature 98.6 Blood Gas HCO3 32 mmol/L (22-26) Blood Gas Base Excess 5.8 mmol/L (-2-2) Blood Gas Oxygen Saturation 93 % (90-100) Arterial Blood pH 7.31 (7.380-7.420) Arterial Blood Partial Pressure CO2 66 mmHg (38-42) Arterial Blood Partial Pressure O2 80 mmHg (61-120) Arterial Blood Oxygen Content 11.1 Vol % (12.0-20.0) Arterial Blood Carboxyhemoglobin 1.8 % (0-4) Arterial Blood Methemoglobin 0.9 % (0-2) Blood Gas Hemoglobin 8.4 G/DL (12.0-16.0) Oxygen Delivery Device VENTILATOR Blood Gas Ventilator Setting COMMENT Blood Gas Inspired Oxygen 50 % Test 07/14/17 03:20 07/14/17 05:52 07/14/17 10:16 07/14/17 10:35 White Blood Count 15.8 TH/MM3 (4.0-11.0) Red Blood Count 2.83 MIL/MM3 (4.50-5.90) Hemoglobin 7.8 GM/DL (13.0-17.0) Hematocrit 24.5 % (39.0-51.0) Mean Corpuscular Volume 86.4 FL (80.0-100.0) Mean Corpuscular Hemoglobin 27.7 PG (27.0-34.0) Mean Corpuscular Hemoglobin Concent 32.1 % (32.0-36.0) Red Cell Distribution Width 17.4 % (11.6-17.2) Platelet Count 266 TH/MM3 (150-450) Mean Platelet Volume 9.2 FL (7.0-11.0) Neutrophils (%) (Auto) 88.7 % (16.0-70.0) Lymphocytes (%) (Auto) 2.6 % (9.0-44.0) Monocytes (%) (Auto) 7.7 % (0.0-8.0) Eosinophils (%) (Auto) 0.6 % (0.0-4.0) Basophils (%) (Auto) 0.4 % (0.0-2.0) Neutrophils # (Auto) 14.0 TH/MM3 (1.8-7.7) Lymphocytes # (Auto) 0.4 TH/MM3 (1.0-4.8) Monocytes # (Auto) 1.2 TH/MM3 (0-0.9) Eosinophils # (Auto) 0.1 TH/MM3 (0-0.4) Basophils # (Auto) 0.1 TH/MM3 (0-0.2) CBC Comment DIFF FINAL Differential Comment Blood Urea Nitrogen 23 MG/DL (7-18) Creatinine 1.20 MG/DL (0.60-1.30) Random Glucose 113 MG/DL (74-106) Calcium Level 9.5 MG/DL (8.5-10.1) Phosphorus Level 1.2 MG/DL (2.5-4.9) Magnesium Level 2.3 MG/DL (1.5-2.5) Sodium Level 145 MEQ/L (136-145) Potassium Level 3.5 MEQ/L (3.5-5.1) Chloride Level 104 MEQ/L (98-107) Carbon Dioxide Level 34.5 MEQ/L (21.0-32.0) Anion Gap 7 MEQ/L (5-15) Estimat Glomerular Filtration Rate 61 ML/MIN (>89) Blood Gas Puncture Site ART LINE ART LINE Blood Gas Patient Temperature 98.6 98.6 Blood Gas HCO3 32 mmol/L (22-26) 31 mmol/L (22-26) Blood Gas Base Excess 8.7 mmol/L (-2-2) 6.1 mmol/L (-2-2) Blood Gas Oxygen Saturation 90 % (90-100) 68 % (90-100) Arterial Blood pH 7.51 (7.380-7.420) 7.41 (7.380-7.420) Arterial Blood Partial Pressure CO2 40 mmHg (38-42) 49 mmHg (38-42) Arterial Blood Partial Pressure O2 60 mmHg (61-120) 38 mmHg (61-120) Arterial Blood Oxygen Content 10.2 Vol % (12.0-20.0) 9.7 Vol % (12.0-20.0) Arterial Blood Carboxyhemoglobin 2.1 % (0-4) 1.5 % (0-4) Arterial Blood Methemoglobin 1.1 % (0-2) 1.1 % (0-2) Blood Gas Hemoglobin 8.0 G/DL (12.0-16.0) 10.2 G/DL (12.0-16.0) Oxygen Delivery Device VENT AMBU BAG Blood Gas Ventilator Setting Blood Gas Inspired Oxygen 50 % 100 % Blood Gas Liter Flow 15 L/M Prothrombin Time 11.2 SEC (9.8-11.6) Prothromb Time International Ratio 1.0 RATIO Test 07/14/17 10:54 07/14/17 11:05 07/14/17 21:45 07/14/17 23:23 Blood Gas Puncture Site ART LINE ART LINE Blood Gas Patient Temperature 98.6 98.6 Blood Gas HCO3 32 mmol/L (22-26) 29 mmol/L (22-26) Blood Gas Base Excess 7.6 mmol/L (-2-2) 7.0 mmol/L (-2-2) Blood Gas Oxygen Saturation 98 % (90-100) 98 % (90-100) Arterial Blood pH 7.44 (7.380-7.420) 7.63 (7.380-7.420) Arterial Blood Partial Pressure CO2 48 mmHg (38-42) 28 mmHg (38-42) Arterial Blood Partial Pressure O2 321 mmHg (61-120) 328 mmHg (61-120) Arterial Blood Oxygen Content 14.1 Vol % (12.0-20.0) 14.3 Vol % (12.0-20.0) Arterial Blood Carboxyhemoglobin 1.5 % (0-4) 1.6 % (0-4) Arterial Blood Methemoglobin 0.9 % (0-2) 1.1 % (0-2) Blood Gas Hemoglobin 9.7 G/DL (12.0-16.0) 9.8 G/DL (12.0-16.0) Oxygen Delivery Device VENTILATOR VENTILATOR Blood Gas Ventilator Setting PC/AC COMMENT Blood Gas Inspired Oxygen 100 % 90 % Hemoglobin 9.6 GM/DL (13.0-17.0) 9.8 GM/DL (13.0-17.0) Hematocrit 30.1 % (39.0-51.0) 30.3 % (39.0-51.0) Test 07/15/17 04:00 07/15/17 04:50 07/15/17 11:50 07/15/17 16:35 Blood Gas Puncture Site ART LINE Blood Gas Patient Temperature 98.6 Blood Gas HCO3 27 mmol/L (22-26) Blood Gas Base Excess 6.0 mmol/L (-2-2) Blood Gas Oxygen Saturation 97 % (90-100) Arterial Blood pH 7.69 (7.380-7.420) Arterial Blood Partial Pressure CO2 22 mmHg (38-42) Arterial Blood Partial Pressure O2 182 mmHg (61-120) Arterial Blood Oxygen Content 13.6 Vol % (12.0-20.0) Arterial Blood Carboxyhemoglobin 1.7 % (0-4) Arterial Blood Methemoglobin 1.1 % (0-2) Blood Gas Hemoglobin 9.7 G/DL (12.0-16.0) Blood Gas Ventilator Setting COMMENT Blood Gas Inspired Oxygen 60 % Hemoglobin 9.7 GM/DL (13.0-17.0) 9.0 GM/DL (13.0-17.0) Hematocrit 28.4 % (39.0-51.0) 27.5 % (39.0-51.0) Blood Urea Nitrogen 23 MG/DL (7-18) Creatinine 1.34 MG/DL (0.60-1.30) Random Glucose 162 MG/DL (74-106) Calcium Level 9.3 MG/DL (8.5-10.1) Phosphorus Level 0.7 MG/DL (2.5-4.9) Magnesium Level 2.0 MG/DL (1.5-2.5) Sodium Level 143 MEQ/L (136-145) Potassium Level 2.7 MEQ/L (3.5-5.1) 3.2 MEQ/L (3.5-5.1) Chloride Level 103 MEQ/L (98-107) Carbon Dioxide Level 28.3 MEQ/L (21.0-32.0) Anion Gap 12 MEQ/L (5-15) Estimat Glomerular Filtration Rate 54 ML/MIN (>89) Test 07/15/17 23:10 07/16/17 04:40 07/16/17 12:00 Hemoglobin 8.2 GM/DL (13.0-17.0) 8.3 GM/DL (13.0-17.0) 8.3 GM/DL (13.0-17.0) Hematocrit 25.1 % (39.0-51.0) 25.3 % (39.0-51.0) 25.9 % (39.0-51.0) Blood Urea Nitrogen 20 MG/DL (7-18) Creatinine 0.81 MG/DL (0.60-1.30) Random Glucose 114 MG/DL (74-106) Calcium Level 9.0 MG/DL (8.5-10.1) Sodium Level 144 MEQ/L (136-145) Potassium Level 3.2 MEQ/L (3.5-5.1) Chloride Level 107 MEQ/L (98-107) Carbon Dioxide Level 29.9 MEQ/L (21.0-32.0) Anion Gap 7 MEQ/L (5-15) Estimat Glomerular Filtration Rate 97 ML/MIN (>89) Result Diagram: 07/16/17 1200 07/16/17 0440 Microbiology Microbiology Date/Time Source Procedure Growth Status 07/13/17 20:00 Urine Catheterized Urine Urine Culture - Final NO GROWTH IN 48 HOURS. Complete Imaging Last Impressions Chest X-Ray 07/15/17 0600 Signed Impressions: Service Date/Time: July 04:58 - CONCLUSION: No significant change. Cole Nieves MD CT Angiography 07/13/17 0000 Signed Impressions: Service Date/Time: Thursday, July 13, 2017 18:43 - CONCLUSION: No evidence of pulmonary embolism Cole Saleh MD Abdomen/Pelvis CT 07/10/17 0000 Signed Impressions: Service Date/Time: Monday, July 10, 2017 20:38 - CONCLUSION: 1. Bilateral pleural effusions and lower lobe consolidation, right greater than left. 2. Distended urinary bladder with smooth margins and no focal opacities within the lumen. 3. No evidence of hydronephrosis. 4. No dilated loops of small bowel. Gas is seen in the lumen of the colon down to the level of the rectum. Linwood Kramer MD Lower Extremity Ultrasound 07/06/17 0000 Signed Impressions: Service Date/Time: Thursday, July 06, 2017 13:20 - CONCLUSION: 1. Probable large hematoma in the right calf this measures at least 36 x 5 x 7.6 cm. Please see above discussion. Srikanth Ware MD Procedures * 07/14/17 - bronchoscopy with asystolic arrest ROSC 3 minutes * 07/13/17 - asystolic arrest, intubated ROSC 10 minutes * 07/14/17 - Arterial line placed right radial * 07/11/17 - extubated * 07/10/17 - EGD/ colonoscopy. Colon biopsy positive mod diff adenocarcinoma. * 07/09/17 - reintubated, I & D of right calf with partial closure * 07/07/17 - extubated * 07/06/17 - thoracentesis for removal of 2.2. liters. * 07/06/17 - intubated postoperatively * 07/06/17 - evacuation of hematoma with fasciotomy right calf with wound vac placement for necrotizing fasciitis. . Assessment and Plan Disease Oriented Problem List: (1) Asystole (2) Acute respiratory failure (3) Necrotizing fasciitis (4) Compartment syndrome of lower extremity (5) Atrial fibrillation with RVR (6) Morbid obesity (7) Cardiomyopathy (8) Unspecified psychosis (9) Cellulitis (10) Colon cancer Comment: invasive moderately differentiated adenocarcinoma of colon . (11) Acute renal insufficiency Symptom Scale: (1) Pain 0-10 Scale: Unable to quantify (2) Dyspnea 0-10 Scale: Unable to quantify Comment: on mech vent FiO2 60%, PEEP 15. (3) Hypotension 0-10 Scale: Unable to quantify Comment: On Levophed Pertinent Non-Medical Issues Psychosocial: Single. homeless. Unknown family. Spiritual: None. Legal:Patient is incapacitated to make his own health care decision, he is not expected to regain capacity. Attempting to identify family or friends to make medical decisions. Review of notes, [employer] was run and identified possible family Belkis Flanagan in [place], [place] [phone]. Madyson Crow LCSW left message at this number to determine if she is related. Will await return call. If no family identified may need to consider [employer] assistance. Ethical issues impacting care: No known concerns at this time. . Important Contacts No family has been identified. . Prognosis Overall poor prognosis. . Code Status: No Code (DNR/do not reintubate if medically extubated) Plan * Patient is incapacitated to make his own health care decision, he is not expected to regain capacity. Attempting to identify family or friends to make medical decisions. Review of notes, [employer] was run and identified possible family Belkis Flanagan in [place], [place] [phone]. Madyson Crow LCSW spoke with Belkis Figueredo Panchito, she reported she is not related to the patient. [employer] LCSW is serving as Health care proxy decision maker. * NO CODE - DNR/ do not reintubate if medically extubated. * 07/16/17 - Spoke with Veronique Pavon LCSW with [employer] who is serving as health care proxy decision maker to provide medical update, answer questions and review prognosis. She elects NO CODE and DOES NOT want patient reintubated should he be medically extubated in the coming days. She requests that patient be medicated for comfort should he fail medical extubation. We agreed to provide medical update on 07/19/17 to further clarify treatment goals. Would consider addition to comfort focused care with withdrawal of life support if the patient has further decline or is unable to be medically extubated. * Discussed with Dr. Jeff and nurse, Marshall. * SYMPTOMS: pain: due to necrotizing fasciitis, recent asystolic arrest x 2, colon cancer, prolonged hospital course, bedbound status, etc. Unresponsive. No obvious signs of pain. Dyspnea: on mech vent, FiO2 100%, PEEP 15. Hypotension: on Levo. No new medication recommendations at this time. * Palliative care will continue to follow to assist with further clarification of treatment goals once legal decision maker has been identified. . Attestation To help prompt me to consider important information that might be impacting today's encounter and assessment, information from prior notes written by myself or my colleagues may have been "brought forward" into today's note. My signature on this note, however, is an attestation that I personally performed the exam, history, and/or decision-making noted today, and, unless otherwise indicated, the interactions with patient, family, and staff as well as the review of records all occurred today. I also attest that the listed assessment and stated plan reflect my best clinical judgment today based on the combination of historical information, prior notes, and today's exam/ interactions. When time spent is documented, it refers only to time spent today by the signer, or if indicated, combined time spent today by collaborating physician/nurse practitioner. Arlen Aguiar Jul 16, 2017 13:22
[2017-07-16] MEDS: ICU - POTASSIUM CHLORIDE/AQUEOUS SOLN 40 MEQ/100 ML IVPB IV PRN ×2 (14:45→17:50)
--- NOTE | 2017-07-16 15:44 | HHI.PR ---
Subjective Subjective Notes Intubated/Sedated PT doing passive range of motion with patient Objective Vitals/I&O Vital Signs Date Time Temp Pulse Resp B/P (MAP) Pulse Ox O2 Delivery O2 Flow Rate FiO2 07/16/17 14:03 100 40 07/16/17 14:00 108 07/16/17 12:06 137/61 07/16/17 12:00 99.3 18 07/16/17 07:00 Mechanical Ventilator 07/13/17 09:09 4.00 Labs Laboratory Tests Test 07/15/17 16:35 07/15/17 23:10 07/16/17 04:40 07/16/17 12:00 Potassium Level 3.2 3.2 Hemoglobin 8.2 8.3 8.3 Hematocrit 25.1 25.3 25.9 Blood Urea Nitrogen 20 Creatinine 0.81 Random Glucose 114 Calcium Level 9.0 Sodium Level 144 Chloride Level 107 Carbon Dioxide Level 29.9 Anion Gap 7 Estimat Glomerular Filtration Rate 97 Date/Time Source Procedure Growth Status 06/28/17 16:51 Blood Peripheral Aerobic Blood Culture - Final NO GROWTH IN 5 DAYS Complete 06/28/17 16:51 Blood Peripheral Anaerobic Blood Culture - Final NO GROWTH IN 5 DAYS Complete 07/07/17 01:00 Fluid Pleural Fluid Fungal Smear - Final NO FUNGAL ELEMENTS SEEN. Resulted 07/07/17 01:00 Fluid Pleural Fluid Fungal Culture - Preliminary NO GROWTH IN 1 WEEK Resulted 07/08/17 15:00 Stool Stool Stool Occult Blood (MARSHAL) - Final HEMOCCULT NEGATIVE Complete 07/13/17 20:00 Urine Catheterized Urine Urine Culture - Final NO GROWTH IN 48 HOURS. Complete Cardiovascular: Regular Lungs: Clear Abdomen: Other (obese, non tender ) Narrative Exam LEFT lower leg Wound Vac in place A/P Problem List: (1) Pleural effusion ICD Codes: J90 - Pleural effusion, not elsewhere classified Status: Acute (2) Atrial fibrillation with RVR ICD Codes: I48.91 - Unspecified atrial fibrillation Status: Acute (3) Morbid obesity ICD Codes: E66.01 - Morbid (severe) obesity due to excess calories (4) Cardiomyopathy ICD Codes: I42.9 - Cardiomyopathy, unspecified (5) Unspecified psychosis ICD Codes: F29 - Unspecified psychosis not due to a substance or known physiological condition Assessment and Plan 62 year old male with multiple medical problems; s/p respiratory failure requiring intubated; s/p fasciotomy of LEFT leg; concern for colon mass in the hepatic flexure (concern for cancer) -Critically ill on ventilator requiring pressor support; too unstable for any surgical procedure at this time -Palliative Care following---attempting to find next of kin vs consul to [employer] -Pathology back---shows moderately differentiated adenocarcinoma -Patient does have a poor performance status for resection -Discussed with KATHY Olivares -General Surgery will see peripherally over the weekend Attending Statement patient seen at bedside high surgical risk but may need removal of colon cancer pt is unable to consent to procedure unable to disclose risks surgery will be available if needed and pt more stable and next of kin identified Attestation The exam, history, and the medical decision-making described in the above note were completed with the assistance of the mid-level provider. I reviewed and agree with the findings presented. I attest that I had a [id number] encounter with the patient on the same day, and personally performed and documented my assessment and findings in the medical record. Krysten Glynn Jul 16, 2017 15:44 Zeb Campuzano MD Jul 18, 2017 13:40
--- NOTE | 2017-07-16 19:37 | PD.ONC.PN ---
Subjective Subjective Remarks remains critically ill on ventilator on pressors Objective Data Date Time Temp Pulse Resp B/P (MAP) Pulse Ox O2 Delivery O2 Flow Rate FiO2 07/16/17 18:00 91 07/16/17 17:36 109 89/47 07/16/17 17:17 99 40 07/16/17 16:00 99.0 98 13 111/62 (78) 100 07/16/17 16:00 113 07/16/17 16:00 40 07/16/17 14:03 100 40 07/16/17 14:00 108 07/16/17 12:06 99 137/61 07/16/17 12:04 99 137/71 07/16/17 12:00 101 07/16/17 12:00 99.3 96 18 149/76 (100) 100 07/16/17 12:00 40 07/16/17 10:00 100 40 07/16/17 10:00 98 07/16/17 08:00 40 07/16/17 08:00 110 07/16/17 08:00 99.5 98 14 165/84 (111) 100 07/16/17 07:00 100 Mechanical Ventilator 40 07/16/17 06:00 103 07/16/17 04:29 101 169/80 07/16/17 04:21 103 144/76 07/16/17 04:00 98.6 101 16 162/83 (109) 100 07/16/17 04:00 40 07/16/17 04:00 101 07/16/17 03:44 100 40 07/16/17 02:00 99 07/16/17 00:28 100 50 07/16/17 00:00 60 07/16/17 00:00 98 07/16/17 00:00 98.2 103 13 127/72 (90) 100 07/15/17 23:30 135/75 07/15/17 23:00 128/69 07/15/17 22:02 106 127/73 07/15/17 22:01 106 130/71 07/15/17 22:00 100 07/15/17 20:57 100 50 07/15/17 20:06 100 60 07/15/17 20:00 60 07/15/17 20:00 98.6 112 12 144/87 (106) 100 07/16/17 07/16/17 07/16/17 07:00 15:00 23:00 Intake Total 838 ml 550 ml 1555 ml Output Total 200 ml 350 ml Balance 638 ml 550 ml 1205 ml Result Diagram: 07/16/17 1200 07/16/17 0440 Laboratory Results Laboratory Tests Test 07/15/17 23:10 07/16/17 04:40 07/16/17 12:00 Hemoglobin 8.2 GM/DL 8.3 GM/DL 8.3 GM/DL Hematocrit 25.1 % 25.3 % 25.9 % Blood Urea Nitrogen 20 MG/DL Creatinine 0.81 MG/DL Random Glucose 114 MG/DL Calcium Level 9.0 MG/DL Sodium Level 144 MEQ/L Potassium Level 3.2 MEQ/L Chloride Level 107 MEQ/L Carbon Dioxide Level 29.9 MEQ/L Anion Gap 7 MEQ/L Estimat Glomerular Filtration Rate 97 ML/MIN Culture Results Microbiology Date/Time Source Procedure Growth Status 07/13/17 20:00 Urine Catheterized Urine Urine Culture - Final NO GROWTH IN 48 HOURS. Complete Administered Medications Medications (Trade) Dose Ordered Sig/Zeinab Route PRN Reason Start Time Stop Time Status Last Admin Dose Admin Senna/Docusate Sodium (Mehnaz-Colace) 1 tab BID PO 06/28/17 21:00 07/16/17 09:24 Guaifenesin (Mucinex Er) 600 mg BID PO 06/28/17 21:00 07/16/17 09:24 Albumin Human (Albumin 25% Inj) 25 gm Q12H IV 07/02/17 14:00 07/16/17 14:46 Digoxin (Lanoxin) 0.25 mg DAILY PO 07/02/17 16:45 07/16/17 09:16 Lisinopril (Prinivil) 10 mg DAILY PO 07/05/17 09:00 Future hold 07/16/17 09:18 Morphine Sulfate (Morphine Inj) 2 mg Q3H PRN IV PUSH pain 1-10 07/06/17 20:00 07/12/17 01:46 Sodium Chloride (NS Flush) 2 ml BID .XX 07/06/17 21:00 07/16/17 09:00 Chlorhexidine Gluconate (Chlorhexidine 2% Cloth) Taper DAILY@04 TOP 07/07/17 04:00 07/03/18 03:59 07/08/17 05:31 Potassium Bicarb/ Potassium Chloride (K-Lyte Cl Eff) 25 meq Q12HR PO 07/07/17 09:00 07/16/17 09:18 Potassium Chloride 100 ml @ 25 mls/hr UNSCH PRN IV ELECTROLYTE REPLACEMENT 07/07/17 18:30 07/16/17 17:50 Potassium Bicarb/ Potassium Chloride (K-Lyte Cl Eff) 50 meq UNSCH PRN PO ELECTROLYTE REPLACEMENT 07/07/17 18:30 07/14/17 04:27 Potassium Phosphate 30 mmol/ Sodium Chloride 260 ml @ 43.333 mls/ hr UNSCH PRN IV ELECTROLYTE REPLACEMENT 07/07/17 18:30 07/07/17 18:55 Lorazepam (Ativan Inj) 1 mg Q4H PRN IV PUSH AGITATION AND/OR HALLUCINATION 07/08/17 09:15 07/13/17 22:18 Pantoprazole Sodium (Protonix Inj) 40 mg Q12H IV PUSH 07/08/17 16:00 07/16/17 16:45 Chlorhexidine Gluconate (Peridex 0.12% Liq) 15 ml BID@08,20 MT 07/09/17 20:00 07/16/17 07:34 Carvedilol (Coreg) 25 mg Q12HR PO 07/12/17 10:00 07/16/17 09:18 Propofol 100 ml @ 4.41 mls/hr TITRATE PRN IV SEDATION 07/13/17 18:15 07/16/17 14:46 Albuterol/ Ipratropium (Duoneb Neb) 1 ampule Q6HR NEB NEB 07/14/17 12:00 07/16/17 17:16 Norepinephrine Bitartrate 250 ml @ 7.5 mls/hr TITRATE PRN IV Maintain MAP > 65 mmHg 07/16/17 17:00 07/16/17 17:36 Objective Remarks GENERAL: critically ill. intubated SKIN: Warm and dry NECK: Supple, trachea midline. No JVD or lymphadenopathy. LYMPHATIC: No adenopathy. CARDIOVASCULAR: Regular rate and rhythm without murmurs. RESPIRATORY: Breath sounds equal bilaterally. GASTROINTESTINAL: Abdomen soft, non-tender, nondistended. EXTREMITIES: No cyanosis, or edema. Assessment/Plan Problem List: (1) Respiratory distress ICD Codes: R06.00 - Dyspnea, unspecified (2) Colonic mass ICD Codes: K63.9 - Disease of intestine, unspecified (3) Pleural effusion ICD Codes: J90 - Pleural effusion, not elsewhere classified Status: Acute (4) Atrial fibrillation with RVR ICD Codes: I48.91 - Unspecified atrial fibrillation Status: Acute (5) Morbid obesity ICD Codes: E66.01 - Morbid (severe) obesity due to excess calories Assessment 62-year-old male who has a history of alcohol abuse who was admitted to the hospital with acute dyspnea and lower extremity swelling. He was found to have a large pleural effusion and new-onset atrial fibrillation. He had right calf swelling with a hematoma which and underwent fasciotomy and drainage. He became anemic and a colonoscopy was performed. He was having GI bleeding. This revealed a colonic mass at the level of the hepatic flexure. 1. Colonic mass at the level of the hepatic flexure. 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 s/p asystole and intubation. - poor prognosis given current condition 2. Acute anemia from GI bleeding, hemoglobin today 7.5. keep hemoglobin greater than 8 in the setting of atrial fibrillation, history of coronary artery disease and myocardial infarction and now s/p asystole - Hb 8.3 - no transfusion today 3. Acute renal failure with creatinine from acute illness, respiratory failure, hypotension, et cetera. Bryon Rivers MD Jul 16, 2017 19:37
[2017-07-17] VITALS (20 sets, daily range): BP systolic 112–127; BP diastolic 60–73; PULSE 85–111; RESP 14–26; TEMP 98.9–100.4; O2SAT 95–100
[2017-07-17] MEDS: PROPOFOL 1000 MG/100 ML INJ 100 ML IV PRN ×8 (01:14→23:05)
[2017-07-17] MEDS: ALBUMIN HUMAN 25% 25 GM/100 ML BAGP IV SCH ×2 (01:14→13:58)
[2017-07-17] MEDS: PANTOPRAZOLE SODIUM 40 MG VIAL IV PUSH SCH ×2 (03:27→16:27)
[2017-07-17] MEDS: CHLORHEXIDINE GLUCONATE 2 % 1 PACK (2 CLOTHS) TOP SCH (04:00)
[2017-07-17] MEDS: RESP: ALBUTEROL 2.5 MG/IPRATROPIUM 0.5 MG NEB (SCH) NEB ×4 (04:20→21:16)
[2017-07-17] MEDS: CHLORHEXIDINE 0.12% (ORAL KIT) 15 ML CUP MT SCH ×2 (08:00→19:59)
[2017-07-17] MEDS: SODIUM CHLORIDE 0.9% FLUSH 10 ML FLUSH SCH ×2 (08:01→19:59)
[2017-07-17] MEDS: LISINOPRIL 10 MG TAB PO SCH (09:00)
[2017-07-17] MEDS: CARVEDILOL 12.5 MG TAB PO SCH ×2 (09:00→19:45)
[2017-07-17] MEDS: DOCUSATE SODIUM 50 MG/SENNA 8.6 MG TAB PO SCH ×2 (09:00→19:47)
--- NOTE | 2017-07-17 09:05 | HHI.CCPN ---
Subjective Remarks/Hospital Course [id number] with multiple medical problems. He was initially admitted to the hospital on 06/28/17 with a chief complaint of shortness of breath and swelling of both legs. The CAT scan of the chest revealed large pleural effusion on the right however patient was refusing thoracentesis. He was also diagnosed with a new onset of atrial fibrillation and has been on anticoagulation while in the hospital. He was also complaining of approximately two day history of increasing leg pain and swelling and significant bruising. His pain became unbearable and he was taken emergently to operating room. He underwent fasciotomy incision and drainage of right calf hematoma and postoperatively he was admitted to ICU intubated. His chest x-ray repeat showed significant worsening of pleural effusion, patient was difficult to ventilate with high peak pressures on the ventilator, also his blood pressure showed hemodynamic compromise. The emergent thoracentesis was performed in the ICU with drainage of 2.2 L off fluid. SUBJECTIVE: 07/07/17: Patient remains intubated sedated. On lightening sedation he becomes very agitated FiO2. Chest x-ray post thoracentesis shows significant improvement in right effusion. Intermittently hypotensive not on pressors. s/p Incision and drainage of right calf hematoma, compartment release anterior and lateral compartments right calf, VAC dressing. 07/08/17: No acute events overnight. The patient continues on Precedex infusion currently at 0.4mcgs/kg/hr, plan to wean Precedex off and provide Ativan when necessary for agitation. Hemoglobin notably 7.0 today type and screen ordered for plans for OR wound closure on 07/09/17. The patient continues with symptoms of paranoia, but cooperative this a.m. Plan for swallow study to initiate feed. 07/09: Patient's hemoglobin continued to decline yesterday to 6.4.. The patient was transfused with 2 units RBCs .Yesterday the patient had a large melanotic stool also hematuria. Coagulation studies obtained within normal limits. GI was consulted, plan for colonoscopy today. Overnight the urine has cleared, hematuria resolved. The patient has a condom catheter good urinary output. Patient continues to be wean off phenylephrine. Patient continues to have paranoia, bouts of confusion. 07/10: Yesterday the patient underwent I&D of the right calf and partial closure of the right calf wound, returned to ICU intubated and sedated placed on propofol and fentanyl infusion. The patient also underwent upper endoscopy, an attempted colonoscopy but was unsuccessful secondary to poor prep. The patient received GoLYTELY throughout the night via OGT with plans for repeat colonoscopy today. Hemodynamically the patient continues to be hypotensive, lisinopril placed on hold, carvedilol decreased dosage by half to 12.5 mg. Low- dose phenylephrine infusion continues at 50 mcgs. 07/11: Hemoglobin stable .The patient underwent colonoscopy yesterday afternoon which revealed multiple polyps in the ascending colon as well as one large colonic mass in the hepatic flexure measuring 3-4 cm issues for carcinoma. General surgery and oncology was consulted. CEA lab, colonic biopsy pending. Plan for CPAP trials this a.m. with plans for extubation. 07/12: No acute events overnight. The patient was successfully extubated yesterday afternoon. Plans for OT PT evaluation and out of bed to chair today. The patient currently A. fib beta blockers were being held secondary to hypotension, which has now resolved. Coreg has been reinstituted twice a day along with patient's lisinopril. The patient continues on Lasix 40 mg daily however secondary to hypotension , creatinine increased to 1.47->1.5 today. Psychiatry consulted for competency, and cognitive evaluation. Case management also consulted. Patient's hemoglobin dropped to 7.5 to be transfused with 1 unit packed cells today. 07/13: Patient found in asystole. Patient status post cardiac arrest with ROSC within 10 mins. Patient intubated, received 3 rounds of 1 mg epinephrine, 1 amp of sodium bicarbonate. EKG, stat labs pending. See CPR note. 07/14: Patient notably not moving air no chest excursion on the right. O2 saturation was 97%. Stat chest x-ray performed stat ABG obtained. Patient was noted on CTA last evening postcardiac arrest to have moderate right pleural effusions as well as the chest x-ray this a.m. showed mucus plugging with complete opacification of the right lung. Ultrasound evaluation at bedside was noted that the effusion was spread throughout some plan for IR CT-guided thoracentesis in the near future. Patient was placed on 100%, timeout was performed for bronchoscopy, O2 saturation 97, upon placing the bronchoscope into the endotracheal tube and viewing the lungs the patient notably precipitously desaturated, fiber-optic scope removed. Patient then became bradycardic-> asystole, 100% [id number] was provided at that time with subsequent cardiac arrest 1013. 1mg of epinephrine was given [id number] with 15 cm of PEEP provided, ROSC at 3 minutes. Repeat chest x-ray revealed a right lung open, and now left almost complete opacification. Patient was placed on 100% oxygen and a pressure control mode with high level of PEEP and Mucomyst. Planned repeat bronchoscopy later this afternoon pending on hemodynamic stability. Levophed infusion currently and Milrinone infusion added , EF 30-35%. 07/15: Remains critically ill after cardiopulmonary arrest yesterday. Maximum support in place. 07/16: No significant improvement. Opens eyes, ? tracks. 07/17: Improved gas exchange. Tapered off vasopressors. No improvement in neuro status. Objective Vital Signs Date Time Temp Pulse Resp B/P (MAP) Pulse Ox O2 Delivery O2 Flow Rate FiO2 07/17/17 07:36 40 07/17/17 07:36 100 07/17/17 07:00 Mechanical Ventilator 07/17/17 06:00 92 07/17/17 04:00 99.2 15 127/65 (85) 07/13/17 09:09 4.00 Intake and Output 07/17/17 07/17/17 07/17/17 07:59 15:59 23:59 Intake Total 772 ml Output Total 2225 ml Balance -1453 ml Result Diagram: 07/16/17 1200 07/16/17 0440 Imaging Last Impressions Chest X-Ray 07/10/17 0600 Signed Impressions: Service Date/Time: Monday, July 10, 2017 03:44 - CONCLUSION: 1. Support apparatus in good position. Basilar airspace disease slightly improved on the right since July 09. Felipe Medina MD Lower Extremity Ultrasound 07/06/17 0000 Signed Impressions: Service Date/Time: Thursday, July 06, 2017 13:20 - CONCLUSION: 1. Probable large hematoma in the right calf this measures at least 36 x 5 x 7.6 cm. Please see above discussion. Srikanth Ware MD CT Angiography 06/28/17 1327 Signed Impressions: Service Date/Time: Wednesday, June 28, 2017 15:58 - CONCLUSION: 1. No pulmonary embolus identified. 2. Large right-sided pleural effusion with consolidation of the right lower lobe. Srikanth Ware MD Last 24 hours Impressions Chest X-Ray 07/07/17 0000 Signed Impressions: Service Date/Time: Friday, July 07, 2017 01:22 - CONCLUSION: 1. Right thoracentesis without pneumothorax. Felipe Medina MD Objective Remarks GENERAL: Morbidly obese critically ill man. SKIN: Warm and dry. HEAD: Normocephalic. EYES: No scleral icterus. No injection or drainage. NECK: Supple, trachea midline. Orally Intubated. CARDIOVASCULAR: Irreg Irreg rhythm without murmurs, gallops, or rubs. RESPIRATORY: Breath sounds equal bilaterally. Mechanical ventilation, few rhonchi. Good air movement on SBTs. GASTROINTESTINAL: Abdomen soft, non-tender, nondistended. Few BS. MUSCULOSKELETAL: Status post fasciotomy on the right calf, vac dressing dry and clean. Right foot edema 2+ Capillary refill brisk right lower extremity. Dopplerable pulses right. NEURO EXAM: Opens eyes. Breathes over vent. Procedures 07/09-EGD 07/10-colonoscopy 07/13 asystolic cardiac arrest with ROSC in 10 mins A/P Assessment and Plan Neuro: Possible anoxic brain injury - Neurochecks per ICU protocol - Patient placed on Haldol 07/13 per psychiatry-discontinued - Propofol infusion for ventilator synchrony, after assessment neurologically post cardiac arrest -Immediate neurological assessment postcardiac arrest 07/13/17 patient spontaneously opens eyes, withdraws extremities x 4 with painful, does not track Resp: Acute hypoxemic respiratory failure R Pleural effusion - Reintubated 07/13- cardiac arrest ETT 8.0 at 22 cm at the lip - 07/07 S/P thoracentesis with 2.2 L removed , CT angiogram of 07/13 Bilateral pleural effusions, moderate right pleural effusion, small left pleural effusion. No PE. Patient will need ultrasound or CT-guided thoracentesis by IR in the near future -07/14 chest x-ray and complete opacification of right lung with mediastinal shift left lung free of acute parenchymal opacity. Bronchoscopy attempted, aborted secondary to cardiac arrest -07/14 chest x-ray-Post cardiac arrest-opacification right lung resolved,now almost complete left lung opacification - s/p extubation 07/11 - Followed by sr account executive, Dr. Palacios -Planned repeat bronchus if hemodynamically stable -Mechanical ventilation PEEP at 15, pressure control setting maintain minute ventilation at 12L, paralysis, FiO2 100% Duonebs q 6 scheduled and q 2 hr PRN, Mucomyst 20% x 2 days - CVS: New onset Atrial Fibrillation - Cardiology following, Dr. Krishnamurthy afib rate controlled - Carvedilol 25 mg BID- placed on hold - EF of 30-35% with global hypokinesia, mild concentric left ventricular hypertrophy, mild mitral valve regurgitation. - Milrinone 0.375 post cardiac arrest 07/14 - Anticoagulation on hold due surgical procedures and GI Bleeding - Hold po Lasix. Continue IV 40mg q12 -07/13 S/P asystolic cardiac arrest w/ ROSC within 10 mins -07/14 S/P asystolic cardiac arrest with ROSC within 3 minutes - Rate controlled on digoxin. Pulmonary Acute hypoxemic respiratory failure -07/13 intubated 8.0ETT -ABG's and chest x-rays as clinically indicated -Obtain CTA pulmonary-bilateral pleural effusions right greater than left, no PE. Right pleural effusion moderate size, noted to be diffuse throughout thorax. Planned CT-guided thoracentesis by IR in near future -Mucomyst, pressure control ventilation, PEEP currently at 5. Nimbex infusion - Bronch 07/24 ID/Heme/MSK: Right calf hematoma with compartment syndrome - Status post emergent fasciotomy and debridement - DC Meropenem, clindamycin, vancomycin. Place on Zosyn 4.5 GM IV q6h - Follow up panculture - Transfuse to keep hemoglobin more than 7 07/09- S/P I&D right lower extremity with partial wound closure -Wound VAC output less than 100 cc in the last 24 hours -07/07 Pleural fluid negative 07/13 hematemesis -07/12 type and screen, transfuse 1 unit packed cells, Hgb 7.5, 07/13 transfused 1 unit PRBC -Hematology- oncolology Dr. Bryon Rivers-07/14 pathology result adenocarcinoma of the colon. Per Gen. surgery discussion with Jhonatan Gretta patient is a poor surgical candidate. Palliative care consulted GI: -Maintain NPO -Hematemesis noted last night 07/13, Dr. Koch following 1 unit packed red blood cells -Bowel regimen -General surgery-Dr. Naranjo- patient is a poor surgical candidate -Follow GI recommendations : NAZIA -Monitor BMP -Maintain Art -Strict I and os Endo: - Electrolyte replacement per protocol -Monitor BMP MSK: -Continue evaluation of the right lower extremity S/P I&D and partial wound closure with wound VAC DVT GI prophylaxis - Teds SCDs - Hematemesis, prophylaxis heparin SQ discontinued - Pepcid Overall impression: Markedly improved respiratory status; may be able to extubate if parameters are acceptable. Lukas Jeff MD Jul 17, 2017 09:05
[2017-07-17] MEDS: guaiFENesin E.R. 600 MG TAB PO SCH ×2 (09:09→19:58)
[2017-07-17] MEDS: POTASSIUM CHLORIDE 25 MEQ EFFERVESCENT TAB PO SCH ×2 (09:09→19:58)
[2017-07-17] MEDS: DIGOXIN 0.25 MG TAB PO SCH (09:10)
[2017-07-17] MEDS: NOREPINEPHRINE-DEXTROSE DRIP 250 ML IV PRN ×2 (12:11→22:39)
--- NOTE | 2017-07-17 16:40 | PD.CARD.PN ---
Subjective Subjective Remarks No change, intubated, unresponsive, now DNR/DNI Objective Medications Administered Medications Medications (Trade) Dose Ordered Sig/Zeinab Route PRN Reason Start Time Stop Time Status Last Admin Dose Admin Senna/Docusate Sodium (Mehnaz-Colace) 1 tab BID PO 06/28/17 21:00 07/16/17 09:24 Guaifenesin (Mucinex Er) 600 mg BID PO 06/28/17 21:00 07/17/17 09:09 Albumin Human (Albumin 25% Inj) 25 gm Q12H IV 07/02/17 14:00 07/17/17 13:58 Digoxin (Lanoxin) 0.25 mg DAILY PO 07/02/17 16:45 07/17/17 09:10 Lisinopril (Prinivil) 10 mg DAILY PO 07/05/17 09:00 Future hold 07/16/17 09:18 Morphine Sulfate (Morphine Inj) 2 mg Q3H PRN IV PUSH pain 1-5 07/06/17 20:00 07/12/17 01:46 Sodium Chloride (NS Flush) 2 ml BID .XX 07/06/17 21:00 07/17/17 08:01 Chlorhexidine Gluconate (Chlorhexidine 2% Cloth) Taper DAILY@04 TOP 07/07/17 04:00 07/03/18 03:59 07/08/17 05:31 Potassium Bicarb/ Potassium Chloride (K-Lyte Cl Eff) 25 meq Q12HR PO 07/07/17 09:00 07/17/17 09:09 Potassium Chloride 100 ml @ 25 mls/hr UNSCH PRN IV ELECTROLYTE REPLACEMENT 07/07/17 18:30 07/16/17 17:50 Potassium Bicarb/ Potassium Chloride (K-Lyte Cl Eff) 50 meq UNSCH PRN PO ELECTROLYTE REPLACEMENT 07/07/17 18:30 07/14/17 04:27 Potassium Phosphate 30 mmol/ Sodium Chloride 260 ml @ 43.333 mls/ hr UNSCH PRN IV ELECTROLYTE REPLACEMENT 07/07/17 18:30 07/07/17 18:55 Lorazepam (Ativan Inj) 1 mg Q4H PRN IV PUSH AGITATION AND/OR HALLUCINATION 07/08/17 09:15 07/13/17 22:18 Pantoprazole Sodium (Protonix Inj) 40 mg Q12H IV PUSH 07/08/17 16:00 10/7/17 16:27 Chlorhexidine Gluconate (Peridex 0.12% Liq) 15 ml BID@08,20 MT 07/09/17 20:00 07/17/17 08:00 Carvedilol (Coreg) 25 mg Q12HR PO 07/12/17 10:00 07/16/17 09:18 Propofol 100 ml @ 4.41 mls/hr TITRATE PRN IV SEDATION 07/13/17 18:15 07/17/17 13:59 Albuterol/ Ipratropium (Duoneb Neb) 1 ampule Q6HR NEB NEB 07/14/17 12:00 07/17/17 15:55 Norepinephrine Bitartrate 250 ml @ 7.5 mls/hr TITRATE PRN IV Maintain MAP > 65 mmHg 07/16/17 17:00 07/17/17 12:11 Vital Signs / I&O Vital Signs Date Time Temp Pulse Resp B/P (MAP) Pulse Ox O2 Delivery O2 Flow Rate FiO2 07/17/17 16:00 93 07/17/17 16:00 40 07/17/17 16:00 99.7 88 14 126/70 (88) 97 07/17/17 15:59 98 40 07/17/17 14:00 85 07/17/17 12:11 91 118/66 07/17/17 12:00 40 07/17/17 12:00 90 07/17/17 12:00 99.5 96 14 125/73 (90) 95 07/17/17 11:37 97 40 07/17/17 10:00 89 07/17/17 09:28 97 40 07/17/17 08:00 111 07/17/17 08:00 100.0 93 26 112/60 (77) 95 07/17/17 08:00 40 07/17/17 07:36 40 07/17/17 07:36 100 40 07/17/17 07:00 100 Mechanical Ventilator 40 07/17/17 06:00 92 07/17/17 05:55 99 40 07/17/17 04:21 95 40 07/17/17 04:00 96 07/17/17 04:00 40 07/17/17 04:00 99.2 96 15 127/65 (85) 100 07/17/17 02:00 99 07/17/17 00:51 100 40 07/17/17 00:00 40 07/17/17 00:00 98.9 94 17 125/69 (87) 100 07/17/17 00:00 94 07/16/17 22:00 88 07/16/17 20:35 100 40 07/16/17 20:00 100 Mechanical Ventilator 40 07/16/17 20:00 100 07/16/17 20:00 98.8 102 14 145/71 (95) 100 07/16/17 20:00 40 07/16/17 18:00 91 07/16/17 17:36 109 89/47 07/16/17 17:17 99 40 I/O 07/16/17 07/16/17 07/16/17 07/17/17 07/17/17 07/17/17 07:00 15:00 23:00 07:00 15:00 23:00 Intake Total 838 ml 550 ml 1855 ml 772 ml 200 ml Output Total 200 ml 350 ml 2225 ml Balance 638 ml 550 ml 1505 ml -1453 ml 200 ml IV Total 838 ml 550 ml 1855 ml 772 ml 200 ml Output Urine Total 150 ml 0 ml 1975 ml Stool Total 100 ml Gastric Drainage Total 250 ml 100 ml Drainage Total 50 ml 150 ml # Bowel Movements 1 Physical Exam GENERAL: Intubated, unresponsive. SKIN: Warm and dry. HEAD: Normocephalic. EYES: No scleral icterus. No injection or drainage. NECK: Supple, trachea midline. No JVD or lymphadenopathy. CARDIOVASCULAR: Irreg, without murmurs, gallops, or rubs. RESPIRATORY: Few rhonchi, distant BS. GASTROINTESTINAL: Abdomen soft, obese MUSCULOSKELETAL: No cyanosis, LE dressed Laboratory Date/Time Source Procedure Growth Status 06/28/17 16:51 Blood Peripheral Aerobic Blood Culture - Final NO GROWTH IN 5 DAYS Complete 06/28/17 16:51 Blood Peripheral Anaerobic Blood Culture - Final NO GROWTH IN 5 DAYS Complete 07/07/17 01:00 Fluid Pleural Fluid Fungal Smear - Final NO FUNGAL ELEMENTS SEEN. Resulted 07/07/17 01:00 Fluid Pleural Fluid Fungal Culture - Preliminary NO GROWTH IN 1 WEEK Resulted 07/08/17 15:00 Stool Stool Stool Occult Blood (MARSHAL) - Final HEMOCCULT NEGATIVE Complete 07/13/17 20:00 Urine Catheterized Urine Urine Culture - Final NO GROWTH IN 48 HOURS. Complete Assessment and Plan Problem List: (1) Acute respiratory failure ICD Codes: J96.00 - Acute respiratory failure, unspecified whether with hypoxia or hypercapnia (2) Morbid obesity ICD Codes: E66.01 - Morbid (severe) obesity due to excess calories (3) Atrial fibrillation with RVR ICD Codes: I48.91 - Unspecified atrial fibrillation Status: Acute (4) Cardiomyopathy ICD Codes: I42.9 - Cardiomyopathy, unspecified (5) Pleural effusion ICD Codes: J90 - Pleural effusion, not elsewhere classified Status: Acute (6) ETOH abuse ICD Codes: F10.10 - Alcohol abuse, uncomplicated Assessment and Plan No improvement. Continue vent support. Cont ICU care. Continue rate control of AF. Echo with moderate LV dysfunction, no intracardiac shunt noted. Overall very poor prognosis. Palliative care consulted. Pt now DNR/DNI; possibly extubation attempt next week. Blair Krishnamurthy MD Jul 17, 2017 16:40
[2017-07-18] VITALS (19 sets, daily range): BP systolic 109–150; BP diastolic 59–86; PULSE 82–110; RESP 14–32; TEMP 99.3–100; O2SAT 92–100
[2017-07-18] MEDS: ALBUMIN HUMAN 25% 25 GM/100 ML BAGP IV SCH ×2 (00:44→13:32)
[2017-07-18] MEDS: PROPOFOL 1000 MG/100 ML INJ 100 ML IV PRN ×9 (01:04→20:54)
[2017-07-18] MEDS: PANTOPRAZOLE SODIUM 40 MG VIAL IV PUSH SCH ×2 (03:32→15:42)
[2017-07-18] MEDS: CHLORHEXIDINE GLUCONATE 2 % 1 PACK (2 CLOTHS) TOP SCH (04:00)
[2017-07-18 04:39] LABS: BICARBONATE 27.5 MEQ/L (21.0-32.0); POTASSIUM 3.4 MEQ/L (3.5-5.1)
[2017-07-18] MEDS: ICU - POTASSIUM CHLORIDE/AQUEOUS SOLN 40 MEQ/100 ML IVPB IV PRN (04:55)
[2017-07-18] MEDS: RESP: ALBUTEROL 2.5 MG/IPRATROPIUM 0.5 MG NEB (SCH) NEB ×2 (05:01→08:23)
[2017-07-18] MEDS: CHLORHEXIDINE 0.12% (ORAL KIT) 15 ML CUP MT SCH ×2 (07:53→20:00)
[2017-07-18] MEDS: LISINOPRIL 10 MG TAB PO SCH (08:30)
[2017-07-18] MEDS: DIGOXIN 0.25 MG TAB PO SCH (08:30)
[2017-07-18] MEDS: POTASSIUM CHLORIDE 25 MEQ EFFERVESCENT TAB PO SCH ×2 (08:30→20:54)
[2017-07-18] MEDS: DOCUSATE SODIUM 50 MG/SENNA 8.6 MG TAB PO SCH ×2 (08:31→20:54)
[2017-07-18] MEDS: CARVEDILOL 12.5 MG TAB PO SCH ×2 (08:31→20:55)
[2017-07-18] MEDS: guaiFENesin E.R. 600 MG TAB PO SCH ×2 (08:31→20:54)
[2017-07-18] MEDS: SODIUM CHLORIDE 0.9% FLUSH 10 ML FLUSH SCH ×2 (08:31→20:55)
--- NOTE | 2017-07-18 10:55 | HHI.CCPN ---
Subjective Remarks/Hospital Course [id number] with multiple medical problems. He was initially admitted to the hospital on 06/28/17 with a chief complaint of shortness of breath and swelling of both legs. The CAT scan of the chest revealed large pleural effusion on the right however patient was refusing thoracentesis. He was also diagnosed with a new onset of atrial fibrillation and has been on anticoagulation while in the hospital. He was also complaining of approximately two day history of increasing leg pain and swelling and significant bruising. His pain became unbearable and he was taken emergently to operating room. He underwent fasciotomy incision and drainage of right calf hematoma and postoperatively he was admitted to ICU intubated. His chest x-ray repeat showed significant worsening of pleural effusion, patient was difficult to ventilate with high peak pressures on the ventilator, also his blood pressure showed hemodynamic compromise. The emergent thoracentesis was performed in the ICU with drainage of 2.2 L off fluid. SUBJECTIVE: 07/07/17: Patient remains intubated sedated. On lightening sedation he becomes very agitated FiO2. Chest x-ray post thoracentesis shows significant improvement in right effusion. Intermittently hypotensive not on pressors. s/p Incision and drainage of right calf hematoma, compartment release anterior and lateral compartments right calf, VAC dressing. 07/08/17: No acute events overnight. The patient continues on Precedex infusion currently at 0.4mcgs/kg/hr, plan to wean Precedex off and provide Ativan when necessary for agitation. Hemoglobin notably 7.0 today type and screen ordered for plans for OR wound closure on 07/09/17. The patient continues with symptoms of paranoia, but cooperative this a.m. Plan for swallow study to initiate feed. 07/09: Patient's hemoglobin continued to decline yesterday to 6.4.. The patient was transfused with 2 units RBCs .Yesterday the patient had a large melanotic stool also hematuria. Coagulation studies obtained within normal limits. GI was consulted, plan for colonoscopy today. Overnight the urine has cleared, hematuria resolved. The patient has a condom catheter good urinary output. Patient continues to be wean off phenylephrine. Patient continues to have paranoia, bouts of confusion. 07/10: Yesterday the patient underwent I&D of the right calf and partial closure of the right calf wound, returned to ICU intubated and sedated placed on propofol and fentanyl infusion. The patient also underwent upper endoscopy, an attempted colonoscopy but was unsuccessful secondary to poor prep. The patient received GoLYTELY throughout the night via OGT with plans for repeat colonoscopy today. Hemodynamically the patient continues to be hypotensive, lisinopril placed on hold, carvedilol decreased dosage by half to 12.5 mg. Low- dose phenylephrine infusion continues at 50 mcgs. 07/11: Hemoglobin stable .The patient underwent colonoscopy yesterday afternoon which revealed multiple polyps in the ascending colon as well as one large colonic mass in the hepatic flexure measuring 3-4 cm issues for carcinoma. General surgery and oncology was consulted. CEA lab, colonic biopsy pending. Plan for CPAP trials this a.m. with plans for extubation. 07/12: No acute events overnight. The patient was successfully extubated yesterday afternoon. Plans for OT PT evaluation and out of bed to chair today. The patient currently A. fib beta blockers were being held secondary to hypotension, which has now resolved. Coreg has been reinstituted twice a day along with patient's lisinopril. The patient continues on Lasix 40 mg daily however secondary to hypotension , creatinine increased to 1.47->1.5 today. Psychiatry consulted for competency, and cognitive evaluation. Case management also consulted. Patient's hemoglobin dropped to 7.5 to be transfused with 1 unit packed cells today. 07/13: Patient found in asystole. Patient status post cardiac arrest with ROSC within 10 mins. Patient intubated, received 3 rounds of 1 mg epinephrine, 1 amp of sodium bicarbonate. EKG, stat labs pending. See CPR note. 07/14: Patient notably not moving air no chest excursion on the right. O2 saturation was 97%. Stat chest x-ray performed stat ABG obtained. Patient was noted on CTA last evening postcardiac arrest to have moderate right pleural effusions as well as the chest x-ray this a.m. showed mucus plugging with complete opacification of the right lung. Ultrasound evaluation at bedside was noted that the effusion was spread throughout some plan for IR CT-guided thoracentesis in the near future. Patient was placed on 100%, timeout was performed for bronchoscopy, O2 saturation 97, upon placing the bronchoscope into the endotracheal tube and viewing the lungs the patient notably precipitously desaturated, fiber-optic scope removed. Patient then became bradycardic-> asystole, 100% [id number] was provided at that time with subsequent cardiac arrest 1013. 1mg of epinephrine was given [id number] with 15 cm of PEEP provided, ROSC at 3 minutes. Repeat chest x-ray revealed a right lung open, and now left almost complete opacification. Patient was placed on 100% oxygen and a pressure control mode with high level of PEEP and Mucomyst. Planned repeat bronchoscopy later this afternoon pending on hemodynamic stability. Levophed infusion currently and Milrinone infusion added , EF 30-35%. 07/15: Remains critically ill after cardiopulmonary arrest yesterday. Maximum support in place. 07/16: No significant improvement. Opens eyes, ? tracks. 07/17: Improved gas exchange. Tapered off vasopressors. No improvement in neuro status. 07/18: Tolerates 15/5 SBT, but not less pressure support. Objective Vital Signs Date Time Temp Pulse Resp B/P (MAP) Pulse Ox O2 Delivery O2 Flow Rate FiO2 07/18/17 10:00 99 07/18/17 08:25 100 40 07/18/17 08:00 99.9 24 109/60 (76) 07/18/17 07:00 Mechanical Ventilator Intake and Output 07/18/17 07/18/17 07/19/17 08:00 16:00 00:00 Intake Total 436 ml Output Total 1200 ml Balance -764 ml Result Diagram: 07/16/17 1200 07/18/17 0400 Imaging Last Impressions Chest X-Ray 07/10/17 0600 Signed Impressions: Service Date/Time: Monday, July 10, 2017 03:44 - CONCLUSION: 1. Support apparatus in good position. Basilar airspace disease slightly improved on the right since July 09. Felipe Medina MD Lower Extremity Ultrasound 07/06/17 0000 Signed Impressions: Service Date/Time: Thursday, July 06, 2017 13:20 - CONCLUSION: 1. Probable large hematoma in the right calf this measures at least 36 x 5 x 7.6 cm. Please see above discussion. Srikanth Ware MD CT Angiography 06/28/17 1327 Signed Impressions: Service Date/Time: Wednesday, June 28, 2017 15:58 - CONCLUSION: 1. No pulmonary embolus identified. 2. Large right-sided pleural effusion with consolidation of the right lower lobe. Srikanth Ware MD Last 24 hours Impressions Chest X-Ray 07/07/17 0000 Signed Impressions: Service Date/Time: Friday, July 07, 2017 01:22 - CONCLUSION: 1. Right thoracentesis without pneumothorax. Felipe Medina MD Objective Remarks GENERAL: Morbidly obese critically ill man. SKIN: Warm and dry. HEAD: Normocephalic. EYES: No scleral icterus. No injection or drainage. NECK: Supple, trachea midline. Orally Intubated. CARDIOVASCULAR: Irreg Irreg rhythm without murmurs, gallops, or rubs. RESPIRATORY: Breath sounds equal bilaterally. Mechanical ventilation, few rhonchi. Good air movement on SBTs. GASTROINTESTINAL: Abdomen soft, non-tender, nondistended. Few BS. MUSCULOSKELETAL: Status post fasciotomy on the right calf, vac dressing dry and clean. Dopplerable pulses right. NEURO EXAM: Opens eyes. Breathes over vent. Unclear if he tracks. Procedures 07/09-EGD 07/10-colonoscopy 07/13 asystolic cardiac arrest with ROSC in 10 mins A/P Assessment and Plan Neuro: Possible anoxic brain injury - Neurochecks per ICU protocol - Patient placed on Haldol 07/13 per psychiatry-discontinued - Propofol infusion for ventilator synchrony, after assessment neurologically post cardiac arrest -Immediate neurological assessment postcardiac arrest 07/13/17 patient spontaneously opens eyes, withdraws extremities x 4 with painful, does not track Resp: Acute hypoxemic respiratory failure R Pleural effusion - Reintubated 07/13- cardiac arrest ETT 8.0 at 22 cm at the lip - 07/07 S/P thoracentesis with 2.2 L removed , CT angiogram of 07/13 Bilateral pleural effusions, moderate right pleural effusion, small left pleural effusion. No PE. Patient will need ultrasound or CT-guided thoracentesis by IR in the near future -07/14 chest x-ray and complete opacification of right lung with mediastinal shift left lung free of acute parenchymal opacity. Bronchoscopy attempted, aborted secondary to cardiac arrest -07/14 chest x-ray-Post cardiac arrest-opacification right lung resolved,now almost complete left lung opacification - s/p extubation 07/11 - Followed by paint spray inspector, Dr. Palacios -Planned repeat bronchus if hemodynamically stable -Mechanical ventilation PEEP at 15, pressure control setting maintain minute ventilation at 12L, paralysis, FiO2 100% Duonebs q 6 scheduled and q 2 hr PRN, Mucomyst 20% x 2 days - CVS: New onset Atrial Fibrillation - Cardiology following, Dr. Krishnamurthy afib rate controlled - Carvedilol 25 mg BID- placed on hold - EF of 30-35% with global hypokinesia, mild concentric left ventricular hypertrophy, mild mitral valve regurgitation. - Milrinone 0.375 post cardiac arrest 07/14 - Anticoagulation on hold due surgical procedures and GI Bleeding - Hold po Lasix. Continue IV 40mg q12 -07/13 S/P asystolic cardiac arrest w/ ROSC within 10 mins -07/14 S/P asystolic cardiac arrest with ROSC within 3 minutes - Rate controlled on digoxin. Pulmonary Acute hypoxemic respiratory failure -07/13 intubated 8.0ETT -ABG's and chest x-rays as clinically indicated -Obtain CTA pulmonary-bilateral pleural effusions right greater than left, no PE. Right pleural effusion moderate size, noted to be diffuse throughout thorax. Planned CT-guided thoracentesis by IR in near future -Mucomyst, pressure control ventilation, PEEP currently at 5. Nimbex infusion - Bronch 07/24 ID/Heme/MSK: Right calf hematoma with compartment syndrome - Status post emergent fasciotomy and debridement - DC Meropenem, clindamycin, vancomycin. Place on Zosyn 4.5 GM IV q6h - Follow up panculture - Transfuse to keep hemoglobin more than 7 07/09- S/P I&D right lower extremity with partial wound closure -Wound VAC output less than 100 cc in the last 24 hours -07/07 Pleural fluid negative 07/13 hematemesis -07/12 type and screen, transfuse 1 unit packed cells, Hgb 7.5, 07/13 transfused 1 unit PRBC -Hematology- oncolology Dr. Bryon Rivers-07/14 pathology result adenocarcinoma of the colon. Not a surgical candidate. Palliative care consulted GI: -Maintain NPO -Hematemesis noted last night 07/13, Dr. Koch following 1 unit packed red blood cells -Bowel regimen -General surgery-Dr. Naranjo- patient is a poor surgical candidate -Follow GI recommendations : NAZIA -Monitor BMP -Maintain Art -Strict I and os Endo: - Electrolyte replacement per protocol -Monitor BMP MSK: -Continue evaluation of the right lower extremity S/P I&D and partial wound closure with wound VAC DVT GI prophylaxis - Teds SCDs - Hematemesis, prophylaxis heparin SQ discontinued - Pepcid Overall impression: Markedly improved respiratory status but unable to extubate. Lukas Jeff MD Jul 18, 2017 10:54
--- NOTE | 2017-07-18 14:28 | PD.CARD.PN ---
Subjective Subjective Remarks Intubated, unresponsive Objective Medications Administered Medications Medications (Trade) Dose Ordered Sig/Zeinab Route PRN Reason Start Time Stop Time Status Last Admin Dose Admin Acetaminophen (Tylenol) 650 mg Q4H PRN PO TEMP > 100.4 06/28/17 17:15 07/17/17 19:58 Senna/Docusate Sodium (Mehnaz-Colace) 1 tab BID PO 06/28/17 21:00 07/16/17 09:24 Guaifenesin (Mucinex Er) 600 mg BID PO 06/28/17 21:00 07/17/17 19:58 Albumin Human (Albumin 25% Inj) 25 gm Q12H IV 07/02/17 14:00 07/18/17 13:32 Digoxin (Lanoxin) 0.25 mg DAILY PO 07/02/17 16:45 07/18/17 08:30 Lisinopril (Prinivil) 10 mg DAILY PO 07/05/17 09:00 Future hold 07/16/17 09:18 Morphine Sulfate (Morphine Inj) 2 mg Q3H PRN IV PUSH pain 1-5 07/06/17 20:00 07/12/17 01:46 Sodium Chloride (NS Flush) 2 ml BID .XX 07/06/17 21:00 07/18/17 08:31 Chlorhexidine Gluconate (Chlorhexidine 2% Cloth) Taper DAILY@04 TOP 07/07/17 04:00 07/03/18 03:59 07/08/17 05:31 Potassium Bicarb/ Potassium Chloride (K-Lyte Cl Eff) 25 meq Q12HR PO 07/07/17 09:00 07/18/17 08:30 Potassium Chloride 100 ml @ 25 mls/hr UNSCH PRN IV ELECTROLYTE REPLACEMENT 07/07/17 18:30 07/18/17 04:55 Potassium Bicarb/ Potassium Chloride (K-Lyte Cl Eff) 50 meq UNSCH PRN PO ELECTROLYTE REPLACEMENT 07/07/17 18:30 07/14/17 04:27 Potassium Phosphate 30 mmol/ Sodium Chloride 260 ml @ 43.333 mls/ hr UNSCH PRN IV ELECTROLYTE REPLACEMENT 07/07/17 18:30 07/07/17 18:55 Lorazepam (Ativan Inj) 1 mg Q4H PRN IV PUSH AGITATION AND/OR HALLUCINATION 07/08/17 09:15 07/13/17 22:18 Pantoprazole Sodium (Protonix Inj) 40 mg Q12H IV PUSH 07/08/17 16:00 07/18/17 03:32 Chlorhexidine Gluconate (Peridex 0.12% Liq) 15 ml BID@08,20 MT 07/09/17 20:00 07/18/17 07:53 Carvedilol (Coreg) 25 mg Q12HR PO 07/12/17 10:00 07/16/17 09:18 Propofol 100 ml @ 4.41 mls/hr TITRATE PRN IV SEDATION 07/13/17 18:15 07/18/17 14:12 Norepinephrine Bitartrate 250 ml @ 7.5 mls/hr TITRATE PRN IV Maintain MAP > 65 mmHg 07/16/17 17:00 07/17/17 22:39 Vital Signs / I&O Vital Signs Date Time Temp Pulse Resp B/P (MAP) Pulse Ox O2 Delivery O2 Flow Rate FiO2 07/18/17 14:00 110 07/18/17 12:00 100.0 106 32 122/71 (88) 95 07/18/17 12:00 40 07/18/17 12:00 104 07/18/17 11:44 93 40 07/18/17 10:00 99 07/18/17 08:25 100 40 07/18/17 08:20 40 07/18/17 08:18 100 40 07/18/17 08:00 99.9 100 24 109/60 (76) 92 07/18/17 08:00 102 07/18/17 08:00 40 07/18/17 07:00 100 Mechanical Ventilator 40 07/18/17 06:00 82 07/18/17 05:01 95 40 07/18/17 04:00 93 07/18/17 04:00 40 07/18/17 04:00 99.7 93 14 122/64 (83) 99 07/18/17 02:00 83 07/18/17 00:00 99.7 88 14 110/59 (76) 100 07/18/17 00:00 40 07/18/17 00:00 106 07/17/17 22:39 99 123/68 07/17/17 22:00 99 07/17/17 21:17 96 40 07/17/17 20:00 100 Mechanical Ventilator 40 07/17/17 20:00 40 07/17/17 20:00 100.4 106 17 121/66 (84) 100 07/17/17 20:00 106 07/17/17 18:00 96 07/17/17 16:00 93 07/17/17 16:00 40 07/17/17 16:00 99.7 88 14 126/70 (88) 97 07/17/17 15:59 98 40 I/O 07/17/17 07/17/17 07/17/17 07/18/17 07/18/17 07/18/17 07:00 15:00 23:00 07:00 15:00 23:00 Intake Total 772 ml 200 ml 687 ml 436 ml 300 ml Output Total 2225 ml 1165 ml 1200 ml Balance -1453 ml 200 ml -478 ml -764 ml 300 ml IV Total 772 ml 200 ml 687 ml 436 ml 300 ml Output Urine Total 1975 ml 1000 ml 950 ml Stool Total 75 ml Gastric Drainage Total 100 ml 75 ml 200 ml Drainage Total 150 ml 15 ml 50 ml # Bowel Movements 1 Physical Exam GENERAL: Intubated, unresponsive. SKIN: Warm and dry. HEAD: Normocephalic. EYES: No scleral icterus. No injection or drainage. NECK: Supple, trachea midline. No JVD or lymphadenopathy. CARDIOVASCULAR: Irreg, without murmurs, gallops, or rubs. RESPIRATORY: Few rhonchi, distant BS. GASTROINTESTINAL: Abdomen soft, obese MUSCULOSKELETAL: No cyanosis, LE dressed Laboratory Laboratory Tests Test 07/18/17 04:00 Blood Urea Nitrogen 11 MG/DL Creatinine 0.70 MG/DL Random Glucose 84 MG/DL Calcium Level 8.9 MG/DL Sodium Level 146 MEQ/L Potassium Level 3.4 MEQ/L Chloride Level 109 MEQ/L Carbon Dioxide Level 27.5 MEQ/L Anion Gap 10 MEQ/L Estimat Glomerular Filtration Rate 114 ML/MIN Assessment and Plan Problem List: (1) Acute respiratory failure ICD Codes: J96.00 - Acute respiratory failure, unspecified whether with hypoxia or hypercapnia (2) Morbid obesity ICD Codes: E66.01 - Morbid (severe) obesity due to excess calories (3) Atrial fibrillation with RVR ICD Codes: I48.91 - Unspecified atrial fibrillation Status: Acute (4) Cardiomyopathy ICD Codes: I42.9 - Cardiomyopathy, unspecified (5) Pleural effusion ICD Codes: J90 - Pleural effusion, not elsewhere classified Status: Acute (6) ETOH abuse ICD Codes: F10.10 - Alcohol abuse, uncomplicated Assessment and Plan Remains comatose, no improvement. Continue vent support. Cont ICU care. Continue rate control of AF. Echo with moderate LV dysfunction, no intracardiac shunt noted. Overall very poor prognosis. Palliative care consulted. Pt now DNR/ DNI; possibly extubation attempt in the near future. Blair Krishnamurthy MD Jul 18, 2017 14:28
[2017-07-19] VITALS (18 sets, daily range): BP systolic 94–134; BP diastolic 57–78; PULSE 102–120; RESP 16–31; TEMP 99–99.9; O2SAT 94–100
[2017-07-19] MEDS: PROPOFOL 1000 MG/100 ML INJ 100 ML IV PRN ×6 (00:02→22:00)
[2017-07-19] MEDS: ALBUMIN HUMAN 25% 25 GM/100 ML BAGP IV SCH ×2 (01:08→13:19)
[2017-07-19] MEDS: CHLORHEXIDINE GLUCONATE 2 % 1 PACK (2 CLOTHS) TOP SCH (02:41)
[2017-07-19] MEDS: PANTOPRAZOLE SODIUM 40 MG VIAL IV PUSH SCH ×2 (03:36→18:06)
--- NOTE | 2017-07-19 07:51 | PD.ORT.PN ---
Subjective Subjective Remarks intubated and stable Objective Vitals Vital Signs Date Time Temp Pulse Resp B/P (MAP) Pulse Ox O2 Delivery O2 Flow Rate FiO2 07/19/17 06:00 120 07/19/17 04:08 100 40 07/19/17 04:00 99.3 105 19 105/63 (77) 96 07/19/17 04:00 105 07/19/17 04:00 40 07/19/17 02:00 107 07/19/17 00:34 100 40 07/19/17 00:00 99.7 102 24 132/70 (90) 97 07/19/17 00:00 102 07/19/17 00:00 40 07/18/17 22:21 99 40 07/18/17 22:00 104 07/18/17 20:00 40 07/18/17 20:00 108 07/18/17 20:00 99.3 108 26 150/86 (107) 99 07/18/17 20:00 99 Mechanical Ventilator 40 07/18/17 18:00 92 07/18/17 16:06 105 07/18/17 16:02 92 40 07/18/17 16:00 99.7 110 28 121/75 (90) 92 07/18/17 16:00 40 07/18/17 14:00 110 07/18/17 12:00 100.0 106 32 122/71 (88) 95 07/18/17 12:00 40 07/18/17 12:00 104 07/18/17 11:44 93 40 07/18/17 10:00 99 07/18/17 08:25 100 40 07/18/17 08:20 40 07/18/17 08:18 100 40 07/18/17 08:00 99.9 100 24 109/60 (76) 92 07/18/17 08:00 102 07/18/17 08:00 40 I/O 07/18/17 07/18/17 07/18/17 07/19/17 07/19/17 07/19/17 06:59 14:59 22:59 06:59 14:59 22:59 Intake Total 436 ml 300 ml 760 ml 639 ml Output Total 1200 ml 1225 ml 550 ml Balance -764 ml 300 ml -465 ml 89 ml IV Total 436 ml 300 ml 760 ml 639 ml Output Urine Total 950 ml 950 ml 500 ml Stool Total 50 ml 50 ml Gastric Drainage Total 200 ml 200 ml 0 ml Drainage Total 50 ml 25 ml 0 ml Result Diagram: 07/16/17 1200 07/18/17 0400 Imaging Last 24 hours Impressions Chest X-Ray 07/13/17 1706 Signed Impressions: Service Date/Time: Thursday, July 13, 2017 17:03 - CONCLUSION: 1. Stable tubes and lines, as above. 2. Stable, right greater than left, small bilateral pleural effusions and associated lower lobe airspace disease. 3. No significant interval change. Blas Hills MD Objective Remarks RLE: dressings clean and dry. intact. NVI. +vac with good seal. Assessment & Plan Assessment and Plan 1) Right Leg Hematoma with compartment syndrome s/p Fasciotomy with I&D vac application -Second irrigation debridement with partial wound closure and wound VAC application applied POD#10/ last vac change day #3 Maintain wound VAC at all times not stable for surgery Planning on extubation today. More than likely will be palliative care unless significant improvement. We'll assess changing wound VAC tomorrow Scar Edwards Jr. Jul 19, 2017 07:51
[2017-07-19] MEDS: CHLORHEXIDINE 0.12% (ORAL KIT) 15 ML CUP MT SCH ×2 (08:04→22:17)
[2017-07-19] MEDS: CARVEDILOL 12.5 MG TAB PO SCH ×2 (09:00→22:16)
[2017-07-19] MEDS: guaiFENesin E.R. 600 MG TAB PO SCH ×2 (09:00→22:16)
[2017-07-19] MEDS: LISINOPRIL 10 MG TAB PO SCH (09:52)
[2017-07-19] MEDS: DOCUSATE SODIUM 50 MG/SENNA 8.6 MG TAB PO SCH ×2 (09:53→22:16)
[2017-07-19] MEDS: DIGOXIN 0.25 MG TAB PO SCH (09:53)
[2017-07-19] MEDS: SODIUM CHLORIDE 0.9% FLUSH 10 ML FLUSH SCH ×2 (09:54→22:17)
[2017-07-19] MEDS: POTASSIUM CHLORIDE 25 MEQ EFFERVESCENT TAB PO SCH ×2 (09:54→22:16)
--- NOTE | 2017-07-19 12:12 | HHI.CCPN ---
Subjective Remarks/Hospital Course [id number] with multiple medical problems. He was initially admitted to the hospital on 06/28/17 with a chief complaint of shortness of breath and swelling of both legs. The CAT scan of the chest revealed large pleural effusion on the right however patient was refusing thoracentesis. He was also diagnosed with a new onset of atrial fibrillation and has been on anticoagulation while in the hospital. He was also complaining of approximately two day history of increasing leg pain and swelling and significant bruising. His pain became unbearable and he was taken emergently to operating room. He underwent fasciotomy incision and drainage of right calf hematoma and postoperatively he was admitted to ICU intubated. His chest x-ray repeat showed significant worsening of pleural effusion, patient was difficult to ventilate with high peak pressures on the ventilator, also his blood pressure showed hemodynamic compromise. The emergent thoracentesis was performed in the ICU with drainage of 2.2 L off fluid. SUBJECTIVE: 07/07/17: Patient remains intubated sedated. On lightening sedation he becomes very agitated FiO2. Chest x-ray post thoracentesis shows significant improvement in right effusion. Intermittently hypotensive not on pressors. s/p Incision and drainage of right calf hematoma, compartment release anterior and lateral compartments right calf, VAC dressing. 07/08/17: No acute events overnight. The patient continues on Precedex infusion currently at 0.4mcgs/kg/hr, plan to wean Precedex off and provide Ativan when necessary for agitation. Hemoglobin notably 7.0 today type and screen ordered for plans for OR wound closure on 07/09/17. The patient continues with symptoms of paranoia, but cooperative this a.m. Plan for swallow study to initiate feed. 07/09: Patient's hemoglobin continued to decline yesterday to 6.4.. The patient was transfused with 2 units RBCs .Yesterday the patient had a large melanotic stool also hematuria. Coagulation studies obtained within normal limits. GI was consulted, plan for colonoscopy today. Overnight the urine has cleared, hematuria resolved. The patient has a condom catheter good urinary output. Patient continues to be wean off phenylephrine. Patient continues to have paranoia, bouts of confusion. 07/10: Yesterday the patient underwent I&D of the right calf and partial closure of the right calf wound, returned to ICU intubated and sedated placed on propofol and fentanyl infusion. The patient also underwent upper endoscopy, an attempted colonoscopy but was unsuccessful secondary to poor prep. The patient received GoLYTELY throughout the night via OGT with plans for repeat colonoscopy today. Hemodynamically the patient continues to be hypotensive, lisinopril placed on hold, carvedilol decreased dosage by half to 12.5 mg. Low- dose phenylephrine infusion continues at 50 mcgs. 07/11: Hemoglobin stable .The patient underwent colonoscopy yesterday afternoon which revealed multiple polyps in the ascending colon as well as one large colonic mass in the hepatic flexure measuring 3-4 cm issues for carcinoma. General surgery and oncology was consulted. CEA lab, colonic biopsy pending. Plan for CPAP trials this a.m. with plans for extubation. 07/12: No acute events overnight. The patient was successfully extubated yesterday afternoon. Plans for OT PT evaluation and out of bed to chair today. The patient currently A. fib beta blockers were being held secondary to hypotension, which has now resolved. Coreg has been reinstituted twice a day along with patient's lisinopril. The patient continues on Lasix 40 mg daily however secondary to hypotension , creatinine increased to 1.47->1.5 today. Psychiatry consulted for competency, and cognitive evaluation. Case management also consulted. Patient's hemoglobin dropped to 7.5 to be transfused with 1 unit packed cells today. 07/13: Patient found in asystole. Patient status post cardiac arrest with ROSC within 10 mins. Patient intubated, received 3 rounds of 1 mg epinephrine, 1 amp of sodium bicarbonate. EKG, stat labs pending. See CPR note. 07/14: Patient notably not moving air no chest excursion on the right. O2 saturation was 97%. Stat chest x-ray performed stat ABG obtained. Patient was noted on CTA last evening postcardiac arrest to have moderate right pleural effusions as well as the chest x-ray this a.m. showed mucus plugging with complete opacification of the right lung. Ultrasound evaluation at bedside was noted that the effusion was spread throughout some plan for IR CT-guided thoracentesis in the near future. Patient was placed on 100%, timeout was performed for bronchoscopy, O2 saturation 97, upon placing the bronchoscope into the endotracheal tube and viewing the lungs the patient notably precipitously desaturated, fiber-optic scope removed. Patient then became bradycardic-> asystole, 100% [id number] was provided at that time with subsequent cardiac arrest 1013. 1mg of epinephrine was given [id number] with 15 cm of PEEP provided, ROSC at 3 minutes. Repeat chest x-ray revealed a right lung open, and now left almost complete opacification. Patient was placed on 100% oxygen and a pressure control mode with high level of PEEP and Mucomyst. Planned repeat bronchoscopy later this afternoon pending on hemodynamic stability. Levophed infusion currently and Milrinone infusion added , EF 30-35%. 07/15: Remains critically ill after cardiopulmonary arrest yesterday. Maximum support in place. 07/16: No significant improvement. Opens eyes, ? tracks. 07/17: Improved gas exchange. Tapered off vasopressors. No improvement in neuro status. 07/18: Tolerates 15/5 SBT, but not less pressure support. 07/19: Still requiring increased pressure support for SBTs. Objective Vital Signs Date Time Temp Pulse Resp B/P (MAP) Pulse Ox O2 Delivery O2 Flow Rate FiO2 07/19/17 11:40 40 07/19/17 08:00 99.4 116 17 129/68 (88) 98 07/18/17 20:00 Mechanical Ventilator Intake and Output 07/19/17 07/19/17 07/20/17 08:00 16:00 00:00 Intake Total 539 ml 140 ml Output Total 550 ml Balance -11 ml 140 ml Result Diagram: 07/16/17 1200 07/18/17 0400 Imaging Last Impressions Chest X-Ray 07/10/17 0600 Signed Impressions: Service Date/Time: Monday, July 10, 2017 03:44 - CONCLUSION: 1. Support apparatus in good position. Basilar airspace disease slightly improved on the right since July 09. Felipe Medina MD Lower Extremity Ultrasound 07/06/17 0000 Signed Impressions: Service Date/Time: Thursday, July 06, 2017 13:20 - CONCLUSION: 1. Probable large hematoma in the right calf this measures at least 36 x 5 x 7.6 cm. Please see above discussion. Srikanth Ware MD CT Angiography 06/28/17 1327 Signed Impressions: Service Date/Time: Wednesday, June 28, 2017 15:58 - CONCLUSION: 1. No pulmonary embolus identified. 2. Large right-sided pleural effusion with consolidation of the right lower lobe. Srikanth Ware MD Last 24 hours Impressions Chest X-Ray 07/07/17 0000 Signed Impressions: Service Date/Time: Friday, July 07, 2017 01:22 - CONCLUSION: 1. Right thoracentesis without pneumothorax. Felipe Medina MD Objective Remarks GENERAL: Morbidly obese critically ill man. SKIN: Warm and dry. HEAD: Normocephalic. EYES: No scleral icterus. No injection or drainage. NECK: Supple, trachea midline. Orally Intubated. CARDIOVASCULAR: Irreg Irreg rhythm without murmurs, gallops, or rubs. RESPIRATORY: Breath sounds equal bilaterally. Mechanical ventilation, few rhonchi. Good air movement on SBTs. GASTROINTESTINAL: Abdomen soft, non-tender, nondistended. Few BS. MUSCULOSKELETAL: Status post fasciotomy on the right calf, vac dressing dry and clean. Toes warm. NEURO EXAM: Opens eyes. Breathes over vent. Does not track with eyes. Procedures 07/09-EGD 07/10-colonoscopy 07/13 asystolic cardiac arrest with ROSC in 10 mins A/P Assessment and Plan Neuro: Possible anoxic brain injury - Neurochecks per ICU protocol - Patient placed on Haldol 07/13 per psychiatry-discontinued - Propofol infusion for ventilator synchrony, after assessment neurologically post cardiac arrest -Immediate neurological assessment postcardiac arrest 07/13/17 patient spontaneously opens eyes, withdraws extremities x 4 with painful, does not track Resp: Acute hypoxemic respiratory failure R Pleural effusion - Reintubated 07/13- cardiac arrest ETT 8.0 at 22 cm at the lip - 07/07 S/P thoracentesis with 2.2 L removed , CT angiogram of 07/13 Bilateral pleural effusions, moderate right pleural effusion, small left pleural effusion. No PE. Patient will need ultrasound or CT-guided thoracentesis by IR in the near future -07/14 chest x-ray and complete opacification of right lung with mediastinal shift left lung free of acute parenchymal opacity. Bronchoscopy attempted, aborted secondary to cardiac arrest -07/14 chest x-ray-Post cardiac arrest-opacification right lung resolved,now almost complete left lung opacification - s/p extubation 07/11 - Followed by [facility], Dr. Palacios -Planned repeat bronchus if hemodynamically stable -Mechanical ventilation PEEP at 15, pressure control setting maintain minute ventilation at 12L, paralysis, FiO2 100% Duonebs q 6 scheduled and q 2 hr PRN, Mucomyst 20% x 2 days - CVS: New onset Atrial Fibrillation - Cardiology following, Dr. Krishnamurthy afib rate controlled - Carvedilol 25 mg BID- placed on hold - EF of 30-35% with global hypokinesia, mild concentric left ventricular hypertrophy, mild mitral valve regurgitation. - Milrinone 0.375 post cardiac arrest 07/14 - Anticoagulation on hold due surgical procedures and GI Bleeding - Hold po Lasix. Continue IV 40mg q12 -07/13 S/P asystolic cardiac arrest w/ ROSC within 10 mins -07/14 S/P asystolic cardiac arrest with ROSC within 3 minutes - Rate controlled on digoxin. Pulmonary Acute hypoxemic respiratory failure -07/13 intubated 8.0ETT -ABG's and chest x-rays as clinically indicated -Obtain CTA pulmonary-bilateral pleural effusions right greater than left, no PE. Right pleural effusion moderate size, noted to be diffuse throughout thorax. Planned CT-guided thoracentesis by IR in near future -Mucomyst, pressure control ventilation, PEEP currently at 5. Nimbex infusion - Bronch 07/24 ID/Heme/MSK: Right calf hematoma with compartment syndrome - Status post emergent fasciotomy and debridement - DC Meropenem, clindamycin, vancomycin. Place on Zosyn 4.5 GM IV q6h - Follow up panculture - Transfuse to keep hemoglobin more than 7 07/09- S/P I&D right lower extremity with partial wound closure -Wound VAC output less than 100 cc in the last 24 hours -07/07 Pleural fluid negative 07/13 hematemesis -07/12 type and screen, transfuse 1 unit packed cells, Hgb 7.5, 07/13 transfused 1 unit PRBC -Hematology- oncolology Dr. Bryon Rivers-07/14 pathology result adenocarcinoma of the colon. Not a surgical candidate. Palliative care consulted GI: -Maintain NPO -Hematemesis noted last night 07/13, Dr. Koch following 1 unit packed red blood cells -Bowel regimen -General surgery-Dr. Naranjo- patient is a poor surgical candidate -Follow GI recommendations : NAZIA -Monitor BMP -Maintain Art -Strict I and os Endo: - Electrolyte replacement per protocol -Monitor BMP MSK: -Continue evaluation of the right lower extremity S/P I&D and partial wound closure with wound VAC DVT GI prophylaxis - Teds SCDs - Hematemesis, prophylaxis heparin SQ discontinued - Pepcid Overall impression: Improved respiratory status but still unable to extubate. Lukas Jeff MD Jul 19, 2017 12:12
--- NOTE | 2017-07-19 17:22 | PD.CARD.PN ---
Subjective Subjective Remarks Intubated, unresponsive Objective Medications Administered Medications Medications (Trade) Dose Ordered Sig/Zeinab Route PRN Reason Start Time Stop Time Status Last Admin Dose Admin Acetaminophen (Tylenol) 650 mg Q4H PRN PO TEMP > 100.4 06/28/17 17:15 07/17/17 19:58 Senna/Docusate Sodium (Mehnaz-Colace) 1 tab BID PO 06/28/17 21:00 07/19/17 09:53 Guaifenesin (Mucinex Er) 600 mg BID PO 06/28/17 21:00 07/18/17 20:54 Albumin Human (Albumin 25% Inj) 25 gm Q12H IV 07/02/17 14:00 07/19/17 13:19 Digoxin (Lanoxin) 0.25 mg DAILY PO 07/02/17 16:45 07/19/17 09:53 Lisinopril (Prinivil) 10 mg DAILY PO 07/05/17 09:00 Future hold 07/19/17 09:52 Morphine Sulfate (Morphine Inj) 2 mg Q3H PRN IV PUSH pain 1-5 07/06/17 20:00 07/12/17 01:46 Sodium Chloride (NS Flush) 2 ml BID .XX 07/06/17 21:00 07/19/17 09:54 Chlorhexidine Gluconate (Chlorhexidine 2% Cloth) Taper DAILY@04 TOP 07/07/17 04:00 07/03/18 03:59 07/08/17 05:31 Potassium Bicarb/ Potassium Chloride (K-Lyte Cl Eff) 25 meq Q12HR PO 07/07/17 09:00 07/19/17 09:54 Potassium Chloride 100 ml @ 25 mls/hr UNSCH PRN IV ELECTROLYTE REPLACEMENT 07/07/17 18:30 07/18/17 04:55 Potassium Bicarb/ Potassium Chloride (K-Lyte Cl Eff) 50 meq UNSCH PRN PO ELECTROLYTE REPLACEMENT 07/07/17 18:30 07/14/17 04:27 Potassium Phosphate 30 mmol/ Sodium Chloride 260 ml @ 43.333 mls/ hr UNSCH PRN IV ELECTROLYTE REPLACEMENT 07/07/17 18:30 07/07/17 18:55 Lorazepam (Ativan Inj) 1 mg Q4H PRN IV PUSH AGITATION AND/OR HALLUCINATION 07/08/17 09:15 07/13/17 22:18 Pantoprazole Sodium (Protonix Inj) 40 mg Q12H IV PUSH 07/08/17 16:00 07/19/17 03:36 Chlorhexidine Gluconate (Peridex 0.12% Liq) 15 ml BID@08,20 MT 07/09/17 20:00 07/19/17 08:04 Carvedilol (Coreg) 25 mg Q12HR PO 07/12/17 10:00 07/16/17 09:18 Propofol 100 ml @ 4.41 mls/hr TITRATE PRN IV SEDATION 07/13/17 18:15 07/19/17 13:18 Albuterol/ Ipratropium (Duoneb Neb) 1 ampule Q2HR NEB PRN NEB WHEEZING 07/14/17 12:00 07/18/17 22:43 Norepinephrine Bitartrate 250 ml @ 7.5 mls/hr TITRATE PRN IV Maintain MAP > 65 mmHg 07/16/17 17:00 07/17/17 22:39 Vital Signs / I&O Vital Signs Date Time Temp Pulse Resp B/P (MAP) Pulse Ox O2 Delivery O2 Flow Rate FiO2 07/19/17 16:24 95 40 07/19/17 16:00 117 07/19/17 14:00 117 07/19/17 12:00 40 07/19/17 12:00 99.9 116 31 115/71 (86) 94 07/19/17 12:00 116 07/19/17 11:40 40 07/19/17 11:40 40 07/19/17 10:00 111 07/19/17 08:00 40 07/19/17 08:00 116 07/19/17 08:00 99.4 116 17 129/68 (88) 98 07/19/17 07:57 95 40 07/19/17 07:00 98 Mechanical Ventilator 40 07/19/17 06:00 120 07/19/17 04:08 100 40 07/19/17 04:00 99.3 105 19 105/63 (77) 96 07/19/17 04:00 105 07/19/17 04:00 40 07/19/17 02:00 107 07/19/17 00:34 100 40 07/19/17 00:00 99.7 102 24 132/70 (90) 97 07/19/17 00:00 102 07/19/17 00:00 40 07/18/17 22:21 99 40 07/18/17 22:00 104 07/18/17 20:00 40 07/18/17 20:00 108 07/18/17 20:00 99.3 108 26 150/86 (107) 99 07/18/17 20:00 99 Mechanical Ventilator 40 07/18/17 18:00 92 I/O 07/18/17 07/18/17 07/18/17 07/19/17 07/19/17 07/19/17 07:00 15:00 23:00 07:00 15:00 23:00 Intake Total 436 ml 300 ml 760 ml 639 ml 140 ml Output Total 1200 ml 1225 ml 550 ml Balance -764 ml 300 ml -465 ml 89 ml 140 ml IV Total 436 ml 300 ml 760 ml 639 ml Other 140 ml Output Urine Total 950 ml 950 ml 500 ml Stool Total 50 ml 50 ml Gastric Drainage Total 200 ml 200 ml 0 ml Drainage Total 50 ml 25 ml 0 ml Physical Exam GENERAL: Intubated, unresponsive. SKIN: Warm and dry. HEAD: Normocephalic. EYES: No scleral icterus. No injection or drainage. NECK: Supple, trachea midline. No JVD or lymphadenopathy. CARDIOVASCULAR: Irreg, without murmurs, gallops, or rubs. RESPIRATORY: Few rhonchi, distant BS. GASTROINTESTINAL: Abdomen soft, obese MUSCULOSKELETAL: No cyanosis, LE dressed Laboratory Date/Time Source Procedure Growth Status 06/28/17 16:51 Blood Peripheral Aerobic Blood Culture - Final NO GROWTH IN 5 DAYS Complete 06/28/17 16:51 Blood Peripheral Anaerobic Blood Culture - Final NO GROWTH IN 5 DAYS Complete 07/07/17 01:00 Fluid Pleural Fluid Fungal Smear - Final NO FUNGAL ELEMENTS SEEN. Resulted 07/07/17 01:00 Fluid Pleural Fluid Fungal Culture - Preliminary NO GROWTH IN 1 WEEK Resulted 07/08/17 15:00 Stool Stool Stool Occult Blood (MARSHAL) - Final HEMOCCULT NEGATIVE Complete 07/13/17 20:00 Urine Catheterized Urine Urine Culture - Final NO GROWTH IN 48 HOURS. Complete Assessment and Plan Problem List: (1) Acute respiratory failure ICD Codes: J96.00 - Acute respiratory failure, unspecified whether with hypoxia or hypercapnia (2) Morbid obesity ICD Codes: E66.01 - Morbid (severe) obesity due to excess calories (3) Atrial fibrillation with RVR ICD Codes: I48.91 - Unspecified atrial fibrillation Status: Acute (4) Cardiomyopathy ICD Codes: I42.9 - Cardiomyopathy, unspecified (5) Pleural effusion ICD Codes: J90 - Pleural effusion, not elsewhere classified Status: Acute (6) ETOH abuse ICD Codes: F10.10 - Alcohol abuse, uncomplicated Assessment and Plan No change. Remains comatose, no improvement. Overall very poor prognosis. Palliative care consulted. Pt now DNR/DNI. Extubation planned. Blair Krishnamurthy MD Jul 19, 2017 17:22
--- NOTE | 2017-07-19 18:28 | HHI.HCPN ---
Reason for visit a. To assist with evaluation and management of symptoms including: pain, dyspnea, hypotension. b. To assist medical decision maker(s) with: better understanding of current medical conditions; weighing benefits/burdens of medical treatment options; making medical treatment decisions. . Subjective/Interval History Patient seen and examined in ICU. Discussed with nurse, Dr. Jeff and Dr. Krishnamurthy. Dr. Jeff reports he has been unable to medically extubate patient though indicates that he is close. Requests another day or so to determine if he will be able to be weaned from mechanical ventilation. Also spoke with Veronique Pavon ([facility])GODWIN from [employer] to provide medical update. Elena agrees with Dr. Jeff's plan of care, I agreed to provide medical update again 07/20 orders 07/21 depending on clinical course. She again advocates that she wants the patient not to suffer if the outcome will still be the same. Advised PRN morphine available for comfort which she appreciates. We will continue to follow and further clarify treatment goals in the coming days. Again if patient is medically extubated in the coming days, healthcare proxy decision maker DOES NOT want patient reintubated. Patient arouses and follow some simple commands per nurse. Patient arouses slightly though does not follow commands during my visit. Patient remains critically ill in ICU. Tolerating CPAP today since 11:45 AM per nurse. Tmax 99.9. Tachycardic. Blood pressure stable. No new labs or imaging. . Family/friend interactions See interval note. Advance Directives Living Will: Never completed Health Care Surrogate: Never completed Durable Power of Want Ad Clerk: Never completed Advance Directive Specifics Health Care Surrogate(s): Patient is incapacitated to make his own health care decision, he is not expected to regain capacity. Attempting to identify family or friends to make medical decisions. Review of CM notes, [employer] was run and identified possible family Belkis Flanagan in [place], [place] [phone]. Madyson Crow LCSW left message at this number to determine if she is related. Will await return call. If no family identified may need to consider Omnidrone assistance. Significant change in goals: NO CODE. Continue aggressive care short of NO CODE STATUS. IF THE PATIENT IS ABLE TO BE MEDICALLY EXTUBATED IN THE COMING DAYS AND FAILS HEALTH CARE PROXY DOES NOT WANT REINTUBATION AND DESIRES COMFORT MEDS. , Objective Vital Signs Date Time Temp Pulse Resp B/P (MAP) Pulse Ox O2 Delivery O2 Flow Rate FiO2 07/19/17 17:34 97 40 07/19/17 16:24 95 40 07/19/17 16:00 99.9 116 28 134/78 (96) 95 07/19/17 16:00 40 07/19/17 16:00 117 07/19/17 14:00 117 07/19/17 12:00 40 07/19/17 12:00 99.9 116 31 115/71 (86) 94 07/19/17 12:00 116 07/19/17 11:40 40 07/19/17 11:40 40 07/19/17 10:00 111 07/19/17 08:00 40 07/19/17 08:00 116 07/19/17 08:00 99.4 116 17 129/68 (88) 98 07/19/17 07:57 95 40 07/19/17 07:00 98 Mechanical Ventilator 40 07/19/17 06:00 120 07/19/17 04:08 100 40 07/19/17 04:00 99.3 105 19 105/63 (77) 96 07/19/17 04:00 105 07/19/17 04:00 40 07/19/17 02:00 107 07/19/17 00:34 100 40 07/19/17 00:00 99.7 102 24 132/70 (90) 97 07/19/17 00:00 102 07/19/17 00:00 40 07/18/17 22:21 99 40 07/18/17 22:00 104 07/18/17 20:00 40 07/18/17 20:00 108 07/18/17 20:00 99.3 108 26 150/86 (107) 99 07/18/17 20:00 99 Mechanical Ventilator 40 Intake & Output 07/19/17 07/19/17 07:00 19:00 Intake Total 739 ml 140 ml Output Total 550 ml Balance 189 ml 140 ml IV Total 739 ml Other 140 ml Output Urine Total 500 ml Stool Total 50 ml Gastric Drainage Total 0 ml Drainage Total 0 ml Physical Exam CONSTITUTIONAL/GENERAL: This is an adequately nourished patient, on mech vent. TUBES/LINES/DRAINS:ETT, OG, left IJ central line, a-line right wrist, bilateral soft wrist restraints, wound vac RLE, Art, SCDs. SKIN: No jaundice, rashes, or lesions. Ecchymoses on upper extremities. RLE dressing/ wound vac. Skin temperature appropriate. Not diaphoretic. EYES: eyes open. CARDIOVASCULAR: Irregular. RESPIRATORY/CHEST: unlabored respirations on vent. Diminished breath sounds bilaterally, right > left. GASTROINTESTINAL: Abdomen soft, protuberant. Bowel sounds hypoactive. GENITOURINARY: Without palpable bladder distension. Art catheter in place. MUSCULOSKELETAL: Extremities with edema. NEUROLOGICAL: eyes open, appears to be tracking. Does not follow commands. PSYCHIATRIC: eyes open. Diagnostic Tests Laboratory Laboratory Tests Test 07/18/17 04:00 Blood Urea Nitrogen 11 MG/DL (7-18) Creatinine 0.70 MG/DL (0.60-1.30) Random Glucose 84 MG/DL (74-106) Calcium Level 8.9 MG/DL (8.5-10.1) Sodium Level 146 MEQ/L (136-145) Potassium Level 3.4 MEQ/L (3.5-5.1) Chloride Level 109 MEQ/L (98-107) Carbon Dioxide Level 27.5 MEQ/L (21.0-32.0) Anion Gap 10 MEQ/L (5-15) Estimat Glomerular Filtration Rate 114 ML/MIN (>89) Result Diagram: 07/16/17 1200 07/18/17 0400 Microbiology Microbiology Date/Time Source Procedure Growth Status 06/28/17 16:51 Blood Peripheral Aerobic Blood Culture - Final NO GROWTH IN 5 DAYS Complete 06/28/17 16:51 Blood Peripheral Anaerobic Blood Culture - Final NO GROWTH IN 5 DAYS Complete 07/07/17 01:00 Fluid Pleural Fluid Fungal Smear - Final NO FUNGAL ELEMENTS SEEN. Resulted 07/07/17 01:00 Fluid Pleural Fluid Fungal Culture - Preliminary NO GROWTH IN 1 WEEK Resulted 07/08/17 15:00 Stool Stool Stool Occult Blood (MARSHAL) - Final HEMOCCULT NEGATIVE Complete 07/13/17 20:00 Urine Catheterized Urine Urine Culture - Final NO GROWTH IN 48 HOURS. Complete Imaging Last Impressions Chest X-Ray 07/15/17 0600 Signed Impressions: Service Date/Time: July 04:58 - CONCLUSION: No significant change. Cole Nieves MD CT Angiography 07/13/17 0000 Signed Impressions: Service Date/Time: Thursday, July 13, 2017 18:43 - CONCLUSION: No evidence of pulmonary embolism Cole Saleh MD Abdomen/Pelvis CT 07/10/17 0000 Signed Impressions: Service Date/Time: Monday, July 10, 2017 20:38 - CONCLUSION: 1. Bilateral pleural effusions and lower lobe consolidation, right greater than left. 2. Distended urinary bladder with smooth margins and no focal opacities within the lumen. 3. No evidence of hydronephrosis. 4. No dilated loops of small bowel. Gas is seen in the lumen of the colon down to the level of the rectum. Linwood Kramer MD Lower Extremity Ultrasound 07/06/17 0000 Signed Impressions: Service Date/Time: Thursday, July 06, 2017 13:20 - CONCLUSION: 1. Probable large hematoma in the right calf this measures at least 36 x 5 x 7.6 cm. Please see above discussion. Srikanth Ware MD Procedures * 07/14/17 - bronchoscopy with asystolic arrest ROSC 3 minutes * 07/13/17 - asystolic arrest, intubated ROSC 10 minutes * 07/14/17 - Arterial line placed right radial * 07/11/17 - extubated * 07/10/17 - EGD/ colonoscopy. Colon biopsy positive mod diff adenocarcinoma. * 07/09/17 - reintubated, I & D of right calf with partial closure * 07/07/17 - extubated * 07/06/17 - thoracentesis for removal of 2.2. liters. * 07/06/17 - intubated postoperatively * 07/06/17 - evacuation of hematoma with fasciotomy right calf with wound vac placement for necrotizing fasciitis. . Assessment and Plan Disease Oriented Problem List: (1) Asystole (2) Acute respiratory failure (3) Necrotizing fasciitis (4) Compartment syndrome of lower extremity (5) Atrial fibrillation with RVR (6) Morbid obesity (7) Cardiomyopathy (8) Unspecified psychosis (9) Cellulitis (10) Colon cancer Comment: invasive moderately differentiated adenocarcinoma of colon . (11) Acute renal insufficiency Symptom Scale: (1) Pain 0-10 Scale: Unable to quantify (2) Dyspnea 0-10 Scale: Unable to quantify Comment: CPAP during visit today Pertinent Non-Medical Issues Psychosocial: Single. homeless. Unknown family. Spiritual: None. Legal:Patient is incapacitated to make his own health care decision, he is not expected to regain capacity. Attempting to identify family or friends to make medical decisions. Review of CM notes, [email or web address] was run and identified possible family Belkis Flanagan in [place], [place] [phone]. Madyson Crow LCSW left message at this number to determine if she is related. Will await return call. If no family identified may need to consider Omnidrone assistance. Ethical issues impacting care: No known concerns at this time. . Important Contacts No family has been identified. . Prognosis Overall poor prognosis. . Code Status: No Code (DNR/do not reintubate if medically extubated) Plan * Patient is incapacitated to make his own health care decision, he is not expected to regain capacity. Attempting to identify family or friends to make medical decisions. Review of CM notes, [employer] was run and identified possible family Belkis Flanagan in [place], [place] [phone]. Madyson Crow LCSW spoke with Belkis Flanagan, she reported she is not related to the patient. [facility] LCSW is serving as Health care proxy decision maker. * NO CODE - DNR/ do not reintubate if medically extubated. * 07/19/17 - Discussed with nurse, Dr. Jeff and Dr. Krishnamurthy. Dr. Jeff reports he has been unable to medically extubate patient though indicates that he is close. Requests another day or so to determine if he will be able to be weaned from mechanical ventilation. Also spoke with Veronique Pavon ([facility]GODWIN from [employer] to provide medical update. Elena agrees with Dr. Jeff's plan of care, I agreed to provide medical update again 07/20 orders depending on clinical course. She again advocates that she wants the patient not to suffer if the outcome will still be the same. Advised PRN morphine available for comfort which she appreciates. We will continue to follow and further clarify treatment goals in the coming days. Again if patient is medically extubated in the coming days, healthcare proxy decision maker DOES NOT want patient reintubated. * SYMPTOMS: pain: due to necrotizing fasciitis, recent asystolic arrest x 2, colon cancer, prolonged hospital course, bedbound status, etc. Unresponsive. No obvious signs of pain. PRN Morphine available. Dyspnea: on mech vent, FiO2 100% , PEEP 15. . No new medication recommendations at this time. * Palliative care will continue to follow to assist with further clarification of treatment goals once legal decision maker has been identified. . Attestation To help prompt me to consider important information that might be impacting today's encounter and assessment, information from prior notes written by myself or my colleagues may have been "brought forward" into today's note. My signature on this note, however, is an attestation that I personally performed the exam, history, and/or decision-making noted today, and, unless otherwise indicated, the interactions with patient, family, and staff as well as the review of records all occurred today. I also attest that the listed assessment and stated plan reflect my best clinical judgment today based on the combination of historical information, prior notes, and today's exam/ interactions. When time spent is documented, it refers only to time spent today by the signer, or if indicated, combined time spent today by collaborating physician/nurse practitioner. Arlen Aguiar Jul 19, 2017 18:27
[2017-07-19] MEDS: MORPHINE SULFATE 4 MG/ML INJ IV PUSH PRN (18:50)
--- NOTE | 2017-07-19 22:31 | PD.ONC.PN ---
Subjective Subjective Remarks remains very ill intubated palliative care seeing patient Objective Data Date Time Temp Pulse Resp B/P (MAP) Pulse Ox O2 Delivery O2 Flow Rate FiO2 07/19/17 19:28 94 40 07/19/17 18:00 119 07/19/17 17:35 40 07/19/17 17:34 97 40 07/19/17 16:24 95 40 07/19/17 16:00 99.9 116 28 134/78 (96) 95 07/19/17 16:00 40 07/19/17 16:00 117 07/19/17 14:00 117 07/19/17 12:00 40 07/19/17 12:00 99.9 116 31 115/71 (86) 94 07/19/17 12:00 116 07/19/17 11:40 40 07/19/17 11:40 40 07/19/17 10:00 111 07/19/17 08:00 40 07/19/17 08:00 116 07/19/17 08:00 99.4 116 17 129/68 (88) 98 07/19/17 07:57 95 40 07/19/17 07:00 98 Mechanical Ventilator 40 07/19/17 06:00 120 07/19/17 04:08 100 40 07/19/17 04:00 99.3 105 19 105/63 (77) 96 07/19/17 04:00 105 07/19/17 04:00 40 07/19/17 02:00 107 07/19/17 00:34 100 40 07/19/17 00:00 99.7 102 24 132/70 (90) 97 07/19/17 00:00 102 07/19/17 00:00 40 07/19/17 07/19/17 07/19/17 06:59 14:59 22:59 Intake Total 639 ml 140 ml 585 ml Output Total 550 ml 865 ml Balance 89 ml 140 ml -280 ml Result Diagram: 07/16/17 1200 07/18/17 0400 Administered Medications Medications (Trade) Dose Ordered Sig/Zeinab Route PRN Reason Start Time Stop Time Status Last Admin Dose Admin Acetaminophen (Tylenol) 650 mg Q4H PRN PO TEMP > 100.4 06/28/17 17:15 07/17/17 19:58 Senna/Docusate Sodium (Mehnaz-Colace) 1 tab BID PO 06/28/17 21:00 07/19/17 22:16 Guaifenesin (Mucinex Er) 600 mg BID PO 06/28/17 21:00 07/19/17 22:16 Albumin Human (Albumin 25% Inj) 25 gm Q12H IV 07/02/17 14:00 07/19/17 13:19 Digoxin (Lanoxin) 0.25 mg DAILY PO 07/02/17 16:45 07/19/17 09:53 Lisinopril (Prinivil) 10 mg DAILY PO 07/05/17 09:00 Future hold 07/19/17 09:52 Morphine Sulfate (Morphine Inj) 2 mg Q3H PRN IV PUSH pain 1-5 07/06/17 20:00 07/12/17 01:46 Sodium Chloride (NS Flush) 2 ml BID .XX 07/06/17 21:00 07/19/17 22:17 Chlorhexidine Gluconate (Chlorhexidine 2% Cloth) Taper DAILY@04 TOP 07/07/17 04:00 07/03/18 03:59 07/08/17 05:31 Potassium Bicarb/ Potassium Chloride (K-Lyte Cl Eff) 25 meq Q12HR PO 07/07/17 09:00 07/19/17 22:16 Potassium Chloride 100 ml @ 25 mls/hr UNSCH PRN IV ELECTROLYTE REPLACEMENT 07/07/17 18:30 07/18/17 04:55 Potassium Bicarb/ Potassium Chloride (K-Lyte Cl Eff) 50 meq UNSCH PRN PO ELECTROLYTE REPLACEMENT 07/07/17 18:30 07/14/17 04:27 Potassium Phosphate 30 mmol/ Sodium Chloride 260 ml @ 43.333 mls/ hr UNSCH PRN IV ELECTROLYTE REPLACEMENT 07/07/17 18:30 07/07/17 18:55 Lorazepam (Ativan Inj) 1 mg Q4H PRN IV PUSH AGITATION AND/OR HALLUCINATION 07/08/17 09:15 07/13/17 22:18 Pantoprazole Sodium (Protonix Inj) 40 mg Q12H IV PUSH 07/08/17 16:00 07/19/17 18:06 Chlorhexidine Gluconate (Peridex 0.12% Liq) 15 ml BID@08,20 MT 07/09/17 20:00 07/19/17 22:17 Carvedilol (Coreg) 25 mg Q12HR PO 07/12/17 10:00 07/19/17 22:16 Propofol 100 ml @ 4.41 mls/hr TITRATE PRN IV SEDATION 07/13/17 18:15 07/19/17 18:07 Albuterol/ Ipratropium (Duoneb Neb) 1 ampule Q2HR NEB PRN NEB WHEEZING 07/14/17 12:00 07/18/17 22:43 Norepinephrine Bitartrate 250 ml @ 7.5 mls/hr TITRATE PRN IV Maintain MAP > 65 mmHg 07/16/17 17:00 07/17/17 22:39 Morphine Sulfate (Morphine Inj) 4 mg Q3H PRN IV PUSH pain 6-10 07/17/17 09:15 07/19/17 18:50 Objective Remarks GENERAL: intubated SKIN: Warm and dry. NECK: Supple, trachea midline. No JVD or lymphadenopathy. LYMPHATIC: No adenopathy. CARDIOVASCULAR: Regular rate and rhythm without murmurs. RESPIRATORY: b/l coarse sounds GASTROINTESTINAL: Abdomen soft, non-tender, nondistended. EXTREMITIES: No cyanosis, Assessment/Plan Problem List: (1) Respiratory distress ICD Codes: R06.00 - Dyspnea, unspecified (2) Colonic mass ICD Codes: K63.9 - Disease of intestine, unspecified (3) Pleural effusion ICD Codes: J90 - Pleural effusion, not elsewhere classified Status: Acute (4) Atrial fibrillation with RVR ICD Codes: I48.91 - Unspecified atrial fibrillation Status: Acute (5) Morbid obesity ICD Codes: E66.01 - Morbid (severe) obesity due to excess calories Assessment 62-year-old male who has a history of alcohol abuse who was admitted to the hospital with acute dyspnea and lower extremity swelling. He was found to have a large pleural effusion and new-onset atrial fibrillation. He had right calf swelling with a hematoma which and underwent fasciotomy and drainage. He became anemic and a colonoscopy was performed. He was having GI bleeding. This revealed a colonic mass at the level of the hepatic flexure. 1. Colonic mass at the level of the hepatic flexure. 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 s/p asystole and intubation. - poor prognosis given current condition 2. Acute anemia from GI bleeding, hemoglobin today 7.5. keep hemoglobin greater than 8 in the setting of atrial fibrillation, history of coronary artery disease and myocardial infarction and now s/p asystole No CBC today check cbc in am check fibrinogen and coags 3. Respiratory failure--intubated 4. Encephalopathic Bryon Rivers MD Jul 19, 2017 22:31
[2017-07-20] VITALS (13 sets, daily range): BP systolic 115–151; BP diastolic 74–96; PULSE 100–121; RESP 14–27; TEMP 98.1–99.3; O2SAT 91–100
[2017-07-20] MEDS: ALBUMIN HUMAN 25% 25 GM/100 ML BAGP IV SCH ×2 (01:27→13:18)
[2017-07-20] MEDS: PROPOFOL 1000 MG/100 ML INJ 100 ML IV PRN ×3 (01:30→08:14)
[2017-07-20] MEDS: CHLORHEXIDINE GLUCONATE 2 % 1 PACK (2 CLOTHS) TOP SCH (04:00)
[2017-07-20] MEDS: PANTOPRAZOLE SODIUM 40 MG VIAL IV PUSH SCH (04:37)
[2017-07-20] MEDS: MORPHINE SULFATE 4 MG/ML INJ IV PUSH PRN ×2 (04:48→08:13)
[2017-07-20 06:43] LABS: AUTOMATED NEUTROPHIL # 13.5 TH/MM3 (1.8-7.7); BASOPHIL % 0.3 % (0.0-2.0); EOSINOPHIL # 0.4 TH/MM3 (0-0.4); EOSINOPHIL % 2.7 % (0.0-4.0); HEMATOCRIT 24.2 % (39.0-51.0); HEMO FLAGS DIFF FINAL; LYMPH % 4.6 % (9.0-44.0); LYMPHOCYTE # 0.7 TH/MM3 (1.0-4.8); MEAN CELL VOLUME 87.5 FL (80.0-100.0); MEAN CORPUSCULAR HEMOGLOBIN 27.9 PG (27.0-34.0); MEAN CORPUSCULAR HGB CONC 31.9 % (32.0-36.0); MONO % 6.9 % (0.0-8.0); NEUT % 85.5 % (16.0-70.0); PLATELET COUNT 205 TH/MM3 (150-450); RED BLOOD COUNT 2.77 MIL/MM3 (4.50-5.90); RED CELL DISTRIBUTION WIDTH 17.9 % (11.6-17.2); WHITE BLOOD COUNT 15.8 TH/MM3 (4.0-11.0)
[2017-07-20 06:59] LABS: PROTHROMBIN TIME - PATIENT 10.8 SEC (9.8-11.6)
[2017-07-20 07:13] LABS: BICARBONATE 26.5 MEQ/L (21.0-32.0); POTASSIUM 3.9 MEQ/L (3.5-5.1)
--- NOTE | 2017-07-20 07:35 | PD.ORT.PN ---
Subjective Subjective Remarks s/p I&D right leg patient intubated/sedated. Objective Vitals Vital Signs Date Time Temp Pulse Resp B/P (MAP) Pulse Ox O2 Delivery O2 Flow Rate FiO2 07/20/17 06:00 112 07/20/17 05:20 92 40 07/20/17 04:00 100 07/20/17 04:00 99.3 107 14 133/74 (93) 96 135/85 (102) 07/20/17 04:00 40 07/20/17 02:00 121 07/20/17 01:46 100 40 07/20/17 00:00 107 07/19/17 22:00 109 07/19/17 20:00 99.0 112 16 94/57 (69) 98 110/65 (80) 07/19/17 20:00 40 07/19/17 20:00 112 07/19/17 19:28 94 40 07/19/17 19:00 98 Mechanical Ventilator 40 07/19/17 18:00 119 07/19/17 17:35 40 07/19/17 17:34 97 40 07/19/17 16:24 95 40 07/19/17 16:00 99.9 116 28 134/78 (96) 95 07/19/17 16:00 40 07/19/17 16:00 117 07/19/17 14:00 117 07/19/17 12:00 40 07/19/17 12:00 99.9 116 31 115/71 (86) 94 07/19/17 12:00 116 07/19/17 11:40 40 07/19/17 11:40 40 07/19/17 10:00 111 07/19/17 08:00 40 07/19/17 08:00 116 07/19/17 08:00 99.4 116 17 129/68 (88) 98 07/19/17 07:57 95 40 I/O 07/19/17 07/19/17 07/19/17 07/20/17 07/20/17 07/20/17 07:00 15:00 23:00 07:00 15:00 23:00 Intake Total 639 ml 140 ml 585 ml 348 ml Output Total 550 ml 865 ml 900 ml Balance 89 ml 140 ml -280 ml -552 ml IV Total 639 ml 585 ml 348 ml Other 140 ml Output Urine Total 500 ml 675 ml 500 ml Stool Total 50 ml 25 ml 0 ml Gastric Drainage Total 0 ml 150 ml 300 ml Drainage Total 0 ml 15 ml 100 ml Result Diagram: 07/20/17 0610 07/20/17 0610 Other Results Laboratory Tests Test 07/20/17 06:10 Prothromb Time International Ratio 1.0 RATIO Prothrombin Time 10.8 SEC (9.8-11.6) Imaging Last 24 hours Impressions Chest X-Ray 07/13/17 1706 Signed Impressions: Service Date/Time: Thursday, July 13, 2017 17:03 - CONCLUSION: 1. Stable tubes and lines, as above. 2. Stable, right greater than left, small bilateral pleural effusions and associated lower lobe airspace disease. 3. No significant interval change. Blas Hills MD Objective Remarks RLE: dressings clean and dry. intact. NVI. +vac with good seal. Assessment & Plan Assessment and Plan 1) Right Leg Hematoma with compartment syndrome s/p Fasciotomy with I&D vac application -Second irrigation debridement with partial wound closure and wound VAC application applied / last vac change day #4 Maintain wound VAC at all times not stable for surgery Planning on extubation today. More than likely will be palliative care unless significant improvement. vac changed at bedside today\ low, 100mmHg, 3:1 Martir Moreno Jul 20, 2017 07:35
[2017-07-20] MEDS: CHLORHEXIDINE 0.12% (ORAL KIT) 15 ML CUP MT SCH (08:00)
[2017-07-20] MEDS: DOCUSATE SODIUM 50 MG/SENNA 8.6 MG TAB PO SCH (08:24)
[2017-07-20] MEDS: LISINOPRIL 10 MG TAB PO SCH (08:24)
[2017-07-20] MEDS: guaiFENesin E.R. 600 MG TAB PO SCH (08:25)
[2017-07-20] MEDS: POTASSIUM CHLORIDE 25 MEQ EFFERVESCENT TAB PO SCH (08:28)
[2017-07-20] MEDS: DIGOXIN 0.25 MG TAB PO SCH (08:29)
[2017-07-20] MEDS: CARVEDILOL 12.5 MG TAB PO SCH (08:50)
[2017-07-20] MEDS: SODIUM CHLORIDE 0.9% FLUSH 10 ML FLUSH SCH (09:00)
--- NOTE | 2017-07-20 09:37 | PD.OP ---
cc: Micah Antonio MD Operative Report Date of Surgery: Jul 20, 2017 Preoperative Diagnosis: Left ankle bimalleolar fracture Postoperative Diagnosis: Procedure: Open reduction internal fixation left ankle Anesthesia: Gen. Surgeon: Micah Antonio Educational Program Director(s): TY Iqbal PA-C The surgical procedure was assisted by my physician surgical assistant. My P.A. presence was necessary throughout this case for the manipulation and positioning of the surgical extremity. My P.A. was assisting me throughout the duration of this procedure. The skill set of a physician surgical assistant was medically necessary to complete this procedure. During the surgical case the surgical assistant was working at the back table and the physician surgical assistant was directly assisting me. Operation and Findings: Implants used :ITS Patient was seen and evaluated preoperatively and found to have a displaced ankle fracture. Informed consent was obtained after a detailed discussion of risk and benefits of surgery. The operative site was marked. Patient was brought to the OR, placed on the OR table, and given IV sedation and general endotracheal anesthesia. IV antibiotics were given preoperatively. A timeout procedure was performed. The operative leg was prepped with alcohol followed by Hibiclens and draped in the usual sterile fashion. Attention was turned towards the distal fibula. A four-inch incision was made over the distal fibula. The subcutaneous tissue was dissected with Bovie. The fracture site was visualized. The fracture site was cleaned with curets. The fracture was now reduced. The fracture keyed into anatomic alignment. K-wires were used to h old provisional fixation. A lag screw was placed to compress fracture. A plate was selected and contoured to fit the distal fibula. The plate was provisionally held to bone with K-wires. 3.5 cortical screws were used to compress the plate to bone. Multiple screws were placed above and below the fracture. Next attention was turned towards the medial malleolus. The medial malleolus supposed through a 5 cm incision. Saphenous vein was retracted. Fracture was visualized. Fracture was cleaned with curettes. Fracture was now reduced and keyed into anatomic alignment. There was an area of articular surface impaction. This was elevated with a freer elevator. K wires were used to hold provisional fixation. A small plate was contoured to fit the medial malleolus. 3.5 cortical screws were used to compress plate to bone. A lag screw was also placed through the plate. Additional screws were placed above and below the fracture. Fluoroscopy confirmed well aligned fracture with well-placed hardware. Next, attention was turned to the syndesmosis. The syndesmosis was stressed. There was no widening of the syndesmosis with external rotation of the ankle. Incisions were thoroughly irrigated. The subcutaneous tissue was closed with 3- 0 Vicryl and the skin was closed with 3-0 nylon. Sterile dressings were applied. A well molded well-padded splint was applied. The patient was transferred to Recovery in stable condition. Needle and sponge counts were correct. Micah Antonio MD Jul 20, 2017 09:37
--- NOTE | 2017-07-20 09:40 | HHI.CCPN ---
Subjective Remarks/Hospital Course [id number] with multiple medical problems. He was initially admitted to the hospital on 06/28/17 with a chief complaint of shortness of breath and swelling of both legs. The CAT scan of the chest revealed large pleural effusion on the right however patient was refusing thoracentesis. He was also diagnosed with a new onset of atrial fibrillation and has been on anticoagulation while in the hospital. He was also complaining of approximately two day history of increasing leg pain and swelling and significant bruising. His pain became unbearable and he was taken emergently to operating room. He underwent fasciotomy incision and drainage of right calf hematoma and postoperatively he was admitted to ICU intubated. His chest x-ray repeat showed significant worsening of pleural effusion, patient was difficult to ventilate with high peak pressures on the ventilator, also his blood pressure showed hemodynamic compromise. The emergent thoracentesis was performed in the ICU with drainage of 2.2 L off fluid. SUBJECTIVE: 07/07/17: Patient remains intubated sedated. On lightening sedation he becomes very agitated FiO2. Chest x-ray post thoracentesis shows significant improvement in right effusion. Intermittently hypotensive not on pressors. s/p Incision and drainage of right calf hematoma, compartment release anterior and lateral compartments right calf, VAC dressing. 07/08/17: No acute events overnight. The patient continues on Precedex infusion currently at 0.4mcgs/kg/hr, plan to wean Precedex off and provide Ativan when necessary for agitation. Hemoglobin notably 7.0 today type and screen ordered for plans for OR wound closure on 07/09/17. The patient continues with symptoms of paranoia, but cooperative this a.m. Plan for swallow study to initiate feed. 07/09: Patient's hemoglobin continued to decline yesterday to 6.4.. The patient was transfused with 2 units RBCs .Yesterday the patient had a large melanotic stool also hematuria. Coagulation studies obtained within normal limits. GI was consulted, plan for colonoscopy today. Overnight the urine has cleared, hematuria resolved. The patient has a condom catheter good urinary output. Patient continues to be wean off phenylephrine. Patient continues to have paranoia, bouts of confusion. 07/10: Yesterday the patient underwent I&D of the right calf and partial closure of the right calf wound, returned to ICU intubated and sedated placed on propofol and fentanyl infusion. The patient also underwent upper endoscopy, an attempted colonoscopy but was unsuccessful secondary to poor prep. The patient received GoLYTELY throughout the night via OGT with plans for repeat colonoscopy today. Hemodynamically the patient continues to be hypotensive, lisinopril placed on hold, carvedilol decreased dosage by half to 12.5 mg. Low- dose phenylephrine infusion continues at 50 mcgs. 07/11: Hemoglobin stable .The patient underwent colonoscopy yesterday afternoon which revealed multiple polyps in the ascending colon as well as one large colonic mass in the hepatic flexure measuring 3-4 cm issues for carcinoma. General surgery and oncology was consulted. CEA lab, colonic biopsy pending. Plan for CPAP trials this a.m. with plans for extubation. 07/12: No acute events overnight. The patient was successfully extubated yesterday afternoon. Plans for OT PT evaluation and out of bed to chair today. The patient currently A. fib beta blockers were being held secondary to hypotension, which has now resolved. Coreg has been reinstituted twice a day along with patient's lisinopril. The patient continues on Lasix 40 mg daily however secondary to hypotension , creatinine increased to 1.47->1.5 today. Psychiatry consulted for competency, and cognitive evaluation. Case management also consulted. Patient's hemoglobin dropped to 7.5 to be transfused with 1 unit packed cells today. 07/13: Patient found in asystole. Patient status post cardiac arrest with ROSC within 10 mins. Patient intubated, received 3 rounds of 1 mg epinephrine, 1 amp of sodium bicarbonate. EKG, stat labs pending. See CPR note. 07/14: Patient notably not moving air no chest excursion on the right. O2 saturation was 97%. Stat chest x-ray performed stat ABG obtained. Patient was noted on CTA last evening postcardiac arrest to have moderate right pleural effusions as well as the chest x-ray this a.m. showed mucus plugging with complete opacification of the right lung. Ultrasound evaluation at bedside was noted that the effusion was spread throughout some plan for IR CT-guided thoracentesis in the near future. Patient was placed on 100%, timeout was performed for bronchoscopy, O2 saturation 97, upon placing the bronchoscope into the endotracheal tube and viewing the lungs the patient notably precipitously desaturated, fiber-optic scope removed. Patient then became bradycardic-> asystole, 100% [id number] was provided at that time with subsequent cardiac arrest 1013. 1mg of epinephrine was given [id number] with 15 cm of PEEP provided, ROSC at 3 minutes. Repeat chest x-ray revealed a right lung open, and now left almost complete opacification. Patient was placed on 100% oxygen and a pressure control mode with high level of PEEP and Mucomyst. Planned repeat bronchoscopy later this afternoon pending on hemodynamic stability. Levophed infusion currently and Milrinone infusion added , EF 30-35%. 07/15: Remains critically ill after cardiopulmonary arrest yesterday. Maximum support in place. 07/16: No significant improvement. Opens eyes, ? tracks. 07/17: Improved gas exchange. Tapered off vasopressors. No improvement in neuro status. 07/18: Tolerates 15/5 SBT, but not less pressure support. 07/19: Still requiring increased pressure support for SBTs. 07/20: Patient meets criteria for extubation, strong respiratory effort on 8/5 cpap trial. Objective Vital Signs Date Time Temp Pulse Resp B/P (MAP) Pulse Ox O2 Delivery O2 Flow Rate FiO2 07/20/17 08:54 40 07/20/17 08:53 100 07/20/17 06:00 112 07/20/17 04:00 99.3 14 133/74 (93) 135/85 (102) 07/19/17 19:00 Mechanical Ventilator Intake and Output 07/20/17 07/20/17 07/21/17 08:00 16:00 00:00 Intake Total 348 ml Output Total 900 ml Balance -552 ml Result Diagram: 07/20/17 0610 07/20/17 0610 Imaging Last Impressions Chest X-Ray 07/10/17 0600 Signed Impressions: Service Date/Time: Monday, July 10, 2017 03:44 - CONCLUSION: 1. Support apparatus in good position. Basilar airspace disease slightly improved on the right since July 09. Felipe Medina MD Lower Extremity Ultrasound 07/06/17 0000 Signed Impressions: Service Date/Time: Thursday, July 06, 2017 13:20 - CONCLUSION: 1. Probable large hematoma in the right calf this measures at least 36 x 5 x 7.6 cm. Please see above discussion. Srikanth Ware MD CT Angiography 06/28/17 1327 Signed Impressions: Service Date/Time: Wednesday, June 28, 2017 15:58 - CONCLUSION: 1. No pulmonary embolus identified. 2. Large right-sided pleural effusion with consolidation of the right lower lobe. Srikanth Ware MD Last 24 hours Impressions Chest X-Ray 07/07/17 0000 Signed Impressions: Service Date/Time: Friday, July 07, 2017 01:22 - CONCLUSION: 1. Right thoracentesis without pneumothorax. Felipe Medina MD Objective Remarks GENERAL: Morbidly obese critically ill man. SKIN: Warm and dry. HEAD: Normocephalic. EYES: No scleral icterus. No injection or drainage. NECK: Supple, trachea midline. Orally Intubated. CARDIOVASCULAR: Irreg Irreg rhythm without murmurs, gallops, or rubs. RESPIRATORY: Breath sounds equal bilaterally. Mechanical ventilation, few rhonchi. Good air movement on SBTs. GASTROINTESTINAL: Abdomen soft, non-tender, nondistended. Few BS. MUSCULOSKELETAL: Status post fasciotomy on the right calf, vac dressing dry and clean. Toes warm. NEURO EXAM: Opens eyes. Breathes over vent. Does not track with eyes. Procedures 07/09-EGD 07/10-colonoscopy 07/13 asystolic cardiac arrest with ROSC in 10 mins A/P Assessment and Plan Neuro: Possible anoxic brain injury - Neurochecks per ICU protocol - Patient placed on Haldol 07/13 per psychiatry-discontinued - Propofol infusion for ventilator synchrony, after assessment neurologically post cardiac arrest -Immediate neurological assessment postcardiac arrest 07/13/17 patient spontaneously opens eyes, withdraws extremities x 4 with painful, does not track Resp: Acute hypoxemic respiratory failure R Pleural effusion - Reintubated 07/13- cardiac arrest ETT 8.0 at 22 cm at the lip - 07/07 S/P thoracentesis with 2.2 L removed , CT angiogram of 07/13 Bilateral pleural effusions, moderate right pleural effusion, small left pleural effusion. No PE. Patient will need ultrasound or CT-guided thoracentesis by IR in the near future -07/14 chest x-ray and complete opacification of right lung with mediastinal shift left lung free of acute parenchymal opacity. Bronchoscopy attempted, aborted secondary to cardiac arrest -07/14 chest x-ray-Post cardiac arrest-opacification right lung resolved,now almost complete left lung opacification - s/p extubation 07/11 - Followed by staff weapons officer, Dr. Palacios -Planned repeat bronchus if hemodynamically stable -Mechanical ventilation PEEP at 15, pressure control setting maintain minute ventilation at 12L, paralysis, FiO2 100% Duonebs q 6 scheduled and q 2 hr PRN, - CVS: New onset Atrial Fibrillation - Cardiology following, Dr. Krishnamurthy afib rate controlled - Carvedilol 25 mg BID- placed on hold - EF of 30-35% with global hypokinesia, mild concentric left ventricular hypertrophy, mild mitral valve regurgitation. - Milrinone 0.375 post cardiac arrest 07/14 - Anticoagulation on hold due surgical procedures and GI Bleeding - Hold po Lasix. Continue IV 40mg q12 -07/13 S/P asystolic cardiac arrest w/ ROSC within 10 mins -07/14 S/P asystolic cardiac arrest with ROSC within 3 minutes - Rate controlled on digoxin. Pulmonary Acute hypoxemic respiratory failure -07/13 intubated 8.0ETT -ABG's and chest x-rays as clinically indicated -Obtain CTA pulmonary-bilateral pleural effusions right greater than left, no PE. Right pleural effusion moderate size, noted to be diffuse throughout thorax. Planned CT-guided thoracentesis by IR in near future -Mucomyst, pressure control ventilation, PEEP currently at 5. Nimbex infusion - Bronch 07/24 ID/Heme/MSK: Right calf hematoma with compartment syndrome - Status post emergent fasciotomy and debridement - DC Meropenem, clindamycin, vancomycin. Place on Zosyn 4.5 GM IV q6h - Follow up panculture - Transfuse to keep hemoglobin more than 7 07/09- S/P I&D right lower extremity with partial wound closure -Wound VAC output less than 100 cc in the last 24 hours -07/07 Pleural fluid negative 07/13 hematemesis -07/12 type and screen, transfuse 1 unit packed cells, Hgb 7.5, 07/13 transfused 1 unit PRBC -Hematology- oncolology Dr. Bryon Rivers-07/14 pathology result adenocarcinoma of the colon. Not a surgical candidate. Palliative care consulted GI: -Maintain NPO -Hematemesis noted last night 07/13, Dr. Koch following 1 unit packed red blood cells -Bowel regimen -General surgery-Dr. Naranjo- patient is a poor surgical candidate -Follow GI recommendations : NAZIA -Monitor BMP -Maintain Art -Strict I and os Endo: - Electrolyte replacement per protocol -Monitor BMP MSK: -Continue evaluation of the right lower extremity S/P I&D and partial wound closure with wound VAC DVT GI prophylaxis - Teds SCDs - Hematemesis, prophylaxis heparin SQ discontinued - Pepcid Overall impression: Improved respiratory status and meets criteria for extubation. Lukas Jeff MD Jul 20, 2017 09:40
[2017-07-20] MEDS ORDERED: ACETAMINOPHEN/HYDROcodone 325 MG/7.5 MG TAB PO PRN (09:45)
[2017-07-20] MEDS ORDERED: ceFAZolin 2 GM PREMIX 50 ML IV SCH (09:45)
[2017-07-20] MEDS ORDERED: LORazepam 2 MG/ML VIAL IV PUSH PRN (09:45)
[2017-07-20] MEDS ORDERED: MORPHINE SULFATE 8 MG/ML INJ IV PUSH PRN (09:45)
[2017-07-20] MEDS ORDERED: MORPHINE SULFATE 4 MG/ML INJ IV PUSH PRN (09:45)
[2017-07-20] MEDS ORDERED: Post-op Orders (for Pharmacy) MISC XX ONE (09:45)
--- NOTE | 2017-07-20 11:29 | HHI.HCPN ---
Reason for visit a. To assist with evaluation and management of symptoms including: pain, dyspnea. b. To assist medical decision maker(s) with: better understanding of current medical conditions; weighing benefits/burdens of medical treatment options; making medical treatment decisions. . Subjective/Interval History Patient seen and examined in ICU. Discussed with Dr. Jeff. Patient was medically extubated this morning. Spoke with Veronique Pavon (HCP), GODWIN from [facility] to provide medical update including that patient was medically extubated. Notified of Hospice consult. She is asking many questions about escalation of oxygen since he was medically extubated. She seems to be struggling with no escalation of oxygen if he needs it. I explained with hospice services that they will use oxygen via NC or mask but will not escalate oxygen aggressively as we do in the the inpatient hospital setting. I explained they will use medication to control respiratory distress/ tachypnea. She agrees to speak with hospice admission nurse. She asks about keeping him here for another 24 hours, I encouraged comfort measures with hospice support given poor prognosis. We discussed care center services and overall poor prognosis. PPS 10, anticipate life expectancy hours to days. Discussed with hospice admission nurse, Sherry. She will call to speak with HCP. Comfort meds ordered by Dr. Jeff. Patient arouses, does not speak, moans intermittently during my visit. He is unable to answer questions. Squeezes hands weakly on command. Tachycardic rate 122, BP stable. Mildly labored respirations. On oxygen via NC, oxygen saturation 95%. WBC 15.8, hemoglobin 7.7, hematocrit 24.2, platelets 205. Creatinine 0.65. Cultures negative to date. No new imaging. . Family/friend interactions See interval note. . Advance Directives Living Will: Never completed Health Care Surrogate: Never completed Durable Power of Sales Representative Aircraft: Never completed Advance Directive Specifics Health Care Surrogate(s): Patient is incapacitated to make his own health care decision, he is not expected to regain capacity. Attempting to identify family or friends to make medical decisions. Review of CM notes, [employer] was run and identified possible family Belkis Flanagan in [place], [place] [phone]. Madyson Crow LCSW left message at this number to determine if she is related. Will await return call. If no family identified may need to consider social work advantage assistance. Significant change in goals: NO CODE (DNR/DNI). Off mech vent, hospice consulted. Objective Vital Signs Date Time Temp Pulse Resp B/P (MAP) Pulse Ox O2 Delivery O2 Flow Rate FiO2 07/20/17 09:45 95 Nasal Cannula 5.00 07/20/17 09:45 95 Nasal Cannula 5 07/20/17 08:54 40 07/20/17 08:53 100 40 07/20/17 07:41 93 40 07/20/17 06:00 112 07/20/17 05:20 92 40 07/20/17 04:00 100 07/20/17 04:00 99.3 107 14 133/74 (93) 96 135/85 (102) 07/20/17 04:00 40 07/20/17 02:00 121 07/20/17 01:46 100 40 07/20/17 00:00 107 07/19/17 22:00 109 07/19/17 20:00 99.0 112 16 94/57 (69) 98 110/65 (80) 07/19/17 20:00 40 07/19/17 20:00 112 07/19/17 19:28 94 40 07/19/17 19:00 98 Mechanical Ventilator 40 07/19/17 18:00 119 07/19/17 17:35 40 07/19/17 17:34 97 40 07/19/17 16:24 95 40 07/19/17 16:00 99.9 116 28 134/78 (96) 95 07/19/17 16:00 40 07/19/17 16:00 117 07/19/17 14:00 117 07/19/17 12:00 40 07/19/17 12:00 99.9 116 31 115/71 (86) 94 07/19/17 12:00 116 07/19/17 11:40 40 07/19/17 11:40 40 Intake & Output 07/20/17 07/20/17 07:00 19:00 Intake Total 348 ml Output Total 900 ml Balance -552 ml IV Total 348 ml Output Urine Total 500 ml Stool Total 0 ml Gastric Drainage Total 300 ml Drainage Total 100 ml Physical Exam CONSTITUTIONAL/GENERAL: This is an adequately nourished patient, on mech vent. TUBES/LINES/DRAINS: left IJ central line, right radial A-line, wound vac RLE, Art, SCDs. SKIN: No jaundice, rashes, or lesions. Ecchymoses on upper extremities. RLE dressing/ wound vac. Skin temperature appropriate. Not diaphoretic. EYES: eyes open. CARDIOVASCULAR: Irregular, tachycardic 122 rate. RESPIRATORY/CHEST: mildly labored respirations. Diminished breath sounds bilaterally, right > left. GASTROINTESTINAL: Abdomen soft, protuberant. Bowel sounds hypoactive. GENITOURINARY: Without palpable bladder distension. Art catheter in place. MUSCULOSKELETAL: Extremities with edema. NEUROLOGICAL: eyes open, squeezes hand on command weakly, does not speak, moans intermittently. PSYCHIATRIC: eyes open. . Diagnostic Tests Laboratory Laboratory Tests Test 07/18/17 04:00 07/20/17 06:10 Blood Urea Nitrogen 11 MG/DL (7-18) 10 MG/DL (7-18) Creatinine 0.70 MG/DL (0.60-1.30) 0.65 MG/DL (0.60-1.30) Random Glucose 84 MG/DL (74-106) 89 MG/DL (74-106) Calcium Level 8.9 MG/DL (8.5-10.1) 9.2 MG/DL (8.5-10.1) Sodium Level 146 MEQ/L (136-145) 145 MEQ/L (136-145) Potassium Level 3.4 MEQ/L (3.5-5.1) 3.9 MEQ/L (3.5-5.1) Chloride Level 109 MEQ/L (98-107) 110 MEQ/L (98-107) Carbon Dioxide Level 27.5 MEQ/L (21.0-32.0) 26.5 MEQ/L (21.0-32.0) Anion Gap 10 MEQ/L (5-15) 9 MEQ/L (5-15) Estimat Glomerular Filtration Rate 114 ML/MIN (>89) 124 ML/MIN (>89) White Blood Count 15.8 TH/MM3 (4.0-11.0) Red Blood Count 2.77 MIL/MM3 (4.50-5.90) Hemoglobin 7.7 GM/DL (13.0-17.0) Hematocrit 24.2 % (39.0-51.0) Mean Corpuscular Volume 87.5 FL (80.0-100.0) Mean Corpuscular Hemoglobin 27.9 PG (27.0-34.0) Mean Corpuscular Hemoglobin Concent 31.9 % (32.0-36.0) Red Cell Distribution Width 17.9 % (11.6-17.2) Platelet Count 205 TH/MM3 (150-450) Mean Platelet Volume 9.6 FL (7.0-11.0) Neutrophils (%) (Auto) 85.5 % (16.0-70.0) Lymphocytes (%) (Auto) 4.6 % (9.0-44.0) Monocytes (%) (Auto) 6.9 % (0.0-8.0) Eosinophils (%) (Auto) 2.7 % (0.0-4.0) Basophils (%) (Auto) 0.3 % (0.0-2.0) Neutrophils # (Auto) 13.5 TH/MM3 (1.8-7.7) Lymphocytes # (Auto) 0.7 TH/MM3 (1.0-4.8) Monocytes # (Auto) 1.1 TH/MM3 (0-0.9) Eosinophils # (Auto) 0.4 TH/MM3 (0-0.4) Basophils # (Auto) 0.0 TH/MM3 (0-0.2) CBC Comment DIFF FINAL Differential Comment Prothrombin Time 10.8 SEC (9.8-11.6) Prothromb Time International Ratio 1.0 RATIO Fibrinogen 531 mg/dL (227-377) Result Diagram: 07/20/1710 07/20/17 0610 Microbiology Microbiology Date/Time Source Procedure Growth Status 06/28/17 16:51 Blood Peripheral Aerobic Blood Culture - Final NO GROWTH IN 5 DAYS Complete 06/28/17 16:51 Blood Peripheral Anaerobic Blood Culture - Final NO GROWTH IN 5 DAYS Complete 07/07/17 01:00 Fluid Pleural Fluid Fungal Smear - Final NO FUNGAL ELEMENTS SEEN. Resulted 07/07/17 01:00 Fluid Pleural Fluid Fungal Culture - Preliminary NO GROWTH IN 1 WEEK Resulted 07/08/17 15:00 Stool Stool Stool Occult Blood (MARSHAL) - Final HEMOCCULT NEGATIVE Complete 07/13/17 20:00 Urine Catheterized Urine Urine Culture - Final NO GROWTH IN 48 HOURS. Complete Imaging Last Impressions Chest X-Ray 07/15/17 0600 Signed Impressions: Service Date/Time: July 04:58 - CONCLUSION: No significant change. Cole Nieves MD CT Angiography 07/13/17 0000 Signed Impressions: Service Date/Time: Thursday, July 13, 2017 18:43 - CONCLUSION: No evidence of pulmonary embolism Cole Saleh MD Abdomen/Pelvis CT 07/10/17 0000 Signed Impressions: Service Date/Time: Monday, July 10, 2017 20:38 - CONCLUSION: 1. Bilateral pleural effusions and lower lobe consolidation, right greater than left. 2. Distended urinary bladder with smooth margins and no focal opacities within the lumen. 3. No evidence of hydronephrosis. 4. No dilated loops of small bowel. Gas is seen in the lumen of the colon down to the level of the rectum. Linwood Kramer MD Lower Extremity Ultrasound 07/06/17 0000 Signed Impressions: Service Date/Time: Thursday, July 06, 2017 13:20 - CONCLUSION: 1. Probable large hematoma in the right calf this measures at least 36 x 5 x 7.6 cm. Please see above discussion. Srikanth Ware MD Procedures * 07/14/17 - bronchoscopy with asystolic arrest ROSC 3 minutes * 07/13/17 - asystolic arrest, intubated ROSC 10 minutes * 07/14/17 - Arterial line placed right radial * 07/11/17 - extubated * 07/10/17 - EGD/ colonoscopy. Colon biopsy positive mod diff adenocarcinoma. * 07/09/17 - reintubated, I & D of right calf with partial closure * 07/07/17 - extubated * 07/06/17 - thoracentesis for removal of 2.2. liters. * 07/06/17 - intubated postoperatively * 07/06/17 - evacuation of hematoma with fasciotomy right calf with wound vac placement for necrotizing fasciitis. . Assessment and Plan Disease Oriented Problem List: (1) Asystole (2) Acute respiratory failure (3) Necrotizing fasciitis (4) Compartment syndrome of lower extremity (5) Atrial fibrillation with RVR (6) Morbid obesity (7) Cardiomyopathy (8) Unspecified psychosis (9) Cellulitis (10) Colon cancer Comment: invasive moderately differentiated adenocarcinoma of colon . (11) Acute renal insufficiency Symptom Scale: (1) Pain 0-10 Scale: Unable to quantify (2) Dyspnea 0-10 Scale: Unable to quantify Pertinent Non-Medical Issues Psychosocial: Single. homeless. Unknown family. Spiritual: None. Legal:Patient is incapacitated to make his own health care decision, he is not expected to regain capacity. Attempting to identify family or friends to make medical decisions. Review of CM notes, [employer] was run and identified possible family Belkis Flanagan in [place], [place] [phone]. Madyson Crow LCSW left message at this number to determine if she is related. Will await return call. If no family identified may need to consider [employer] assistance. Ethical issues impacting care: No known concerns at this time. . Important Contacts No family has been identified. . Prognosis Mr. Flanagan is a 62 year old male with underlying heart disease s/p cardiac arrest x 2 with likely anoxic brain injury, newly diagnosed colon cancer not a candidate for resection, and necrotizing fasciitis of right LE. PPS 10, prognosis hours to days. . Code Status: No Code (DNR/do not reintubate if medically extubated) Plan * Patient is incapacitated to make his own health care decision, he is not expected to regain capacity. Attempting to identify family or friends to make medical decisions. Review of CM notes, [employer] was run and identified possible family Belkis Flanagan in [place], [place] [phone]. Madyson Crow LCSW spoke with Belkis Flanagan, she reported she is not related to the patient. [facility] serving as [facility] care proxy decision maker. * NO CODE - DNR/ do not reintubate if medically extubated. * 07/20/17 - Spoke with Veronique Pavon ([facility])GODWIN from [facility] to provide medical update including that patient was medically extubated. Notified of Hospice consult. She is asking many questions about escalation of oxygen since he was medically extubated. She seems to be struggling with no escalation of oxygen if he needs it. I explained with hospice services that they will use oxygen via NC or mask but will not escalate oxygen aggressively as we do in the the inpatient hospital setting. I explained they will use medication to control respiratory distress/ tachypnea. She agrees to speak with hospice admission nurse. She asks about keeping him here for another 24 hours, I encouraged comfort measures with hospice support given poor prognosis. We discussed care center services and overall poor prognosis. PPS 10, anticipate life expectancy hours to days. * Discussed with hospice admission nurse, Sherry. She will call to speak with HCP. * SYMPTOMS: pain: due to necrotizing fasciitis, recent asystolic arrest x 2, colon cancer, prolonged hospital course, bedbound status, etc. Unresponsive. No obvious signs of pain. PRN Morphine available. Dyspnea: on mech vent, FiO2 100% , PEEP 15. Comfort meds ordered by Dr. Jeff. No new medication recommendations at this time. * Palliative care will continue to follow to assist with further clarification of treatment goals once legal decision maker has been identified. . Attestation To help prompt me to consider important information that might be impacting today's encounter and assessment, information from prior notes written by myself or my colleagues may have been "brought forward" into today's note. My signature on this note, however, is an attestation that I personally performed the exam, history, and/or decision-making noted today, and, unless otherwise indicated, the interactions with patient, family, and staff as well as the review of records all occurred today. I also attest that the listed assessment and stated plan reflect my best clinical judgment today based on the combination of historical information, prior notes, and today's exam/ interactions. When time spent is documented, it refers only to time spent today by the signer, or if indicated, combined time spent today by collaborating physician/nurse practitioner. Arlen Aguiar Jul 20, 2017 11:29
--- NOTE | 2017-07-20 11:40 | HHI.PR ---
Subjective Subjective Notes Intubated; on CPAP Eyes open Objective Vitals/I&O Vital Signs Date Time Temp Pulse Resp B/P (MAP) Pulse Ox O2 Delivery O2 Flow Rate FiO2 07/20/17 09:45 95 Nasal Cannula 5.00 07/20/17 08:54 40 07/20/17 06:00 112 07/20/17 04:00 99.3 14 133/74 (93) 135/85 (102) Labs Laboratory Tests Test 07/20/17 06:10 White Blood Count 15.8 Red Blood Count 2.77 Hemoglobin 7.7 Hematocrit 24.2 Mean Corpuscular Volume 87.5 Mean Corpuscular Hemoglobin 27.9 Mean Corpuscular Hemoglobin Concent 31.9 Red Cell Distribution Width 17.9 Platelet Count 205 Mean Platelet Volume 9.6 Neutrophils (%) (Auto) 85.5 Lymphocytes (%) (Auto) 4.6 Monocytes (%) (Auto) 6.9 Eosinophils (%) (Auto) 2.7 Basophils (%) (Auto) 0.3 Neutrophils # (Auto) 13.5 Lymphocytes # (Auto) 0.7 Monocytes # (Auto) 1.1 Eosinophils # (Auto) 0.4 Basophils # (Auto) 0.0 CBC Comment DIFF FINAL Differential Comment Prothrombin Time 10.8 Prothromb Time International Ratio 1.0 Fibrinogen 531 Blood Urea Nitrogen 10 Creatinine 0.65 Random Glucose 89 Calcium Level 9.2 Sodium Level 145 Potassium Level 3.9 Chloride Level 110 Carbon Dioxide Level 26.5 Anion Gap 9 Estimat Glomerular Filtration Rate 124 Date/Time Source Procedure Growth Status 06/28/17 16:51 Blood Peripheral Aerobic Blood Culture - Final NO GROWTH IN 5 DAYS Complete 06/28/17 16:51 Blood Peripheral Anaerobic Blood Culture - Final NO GROWTH IN 5 DAYS Complete 07/07/17 01:00 Fluid Pleural Fluid Fungal Smear - Final NO FUNGAL ELEMENTS SEEN. Resulted 07/07/17 01:00 Fluid Pleural Fluid Fungal Culture - Preliminary NO GROWTH IN 1 WEEK Resulted 07/08/17 15:00 Stool Stool Stool Occult Blood (MARSHAL) - Final HEMOCCULT NEGATIVE Complete 07/13/17 20:00 Urine Catheterized Urine Urine Culture - Final NO GROWTH IN 48 HOURS. Complete Cardiovascular: Regular Lungs: Clear Abdomen: Non-distended, Non-tender, Other (obese ) Narrative Exam LEFT lower leg Wound Vac in place A/P Problem List: (1) Pleural effusion ICD Codes: J90 - Pleural effusion, not elsewhere classified Status: Acute (2) Atrial fibrillation with RVR ICD Codes: I48.91 - Unspecified atrial fibrillation Status: Acute (3) Morbid obesity ICD Codes: E66.01 - Morbid (severe) obesity due to excess calories (4) Cardiomyopathy ICD Codes: I42.9 - Cardiomyopathy, unspecified (5) Unspecified psychosis ICD Codes: F29 - Unspecified psychosis not due to a substance or known physiological condition Assessment and Plan 62 year old male with multiple medical problems; s/p respiratory failure requiring intubated; s/p fasciotomy of LEFT leg; concern for colon mass in the hepatic flexure -Intubated; plan for extubation today -Palliative Care following---there is a [facility]ffer[facility] Proxy for patient; patient now DNR; proxy to meet with Hospice today -Pathology ---shows moderately differentiated adenocarcinoma -Patient does have a poor performance status for resection -Discussed with KATHY Jewell -General Surgery will sign off; please call with goals transition to aggressive care Attending Statement patient seen at bedside dnr status will s/o reconsult if situation improves Attestation The exam, history, and the medical decision-making described in the above note were completed with the assistance of the mid-level provider. I reviewed and agree with the findings presented. I attest that I had a [id number] encounter with the patient on the same day, and personally performed and documented my assessment and findings in the medical record. Krysten Glynn Jul 20, 2017 11:40 Zeb Campuzano MD Jul 28, 2017 13:03
--- NOTE | 2017-07-20 13:27 | HHI.DS ---
Discharge Summary Admission Date Jun 28, 2017 at 17:11 Discharge Date: Jul 20, 2017 Admitting Diagnosis Hypoxemic Respiratory Failure, Acute on chronic heart failure, systolic. (1) Acute hypoxemic respiratory failure ICD Code: J96.01 - Acute respiratory failure with hypoxia Diagnosis: Principal (2) Acute renal insufficiency ICD Code: N28.9 - Disorder of kidney and ureter, unspecified Diagnosis: Principal (3) Necrotizing fasciitis ICD Code: M72.6 - Necrotizing fasciitis Diagnosis: Principal (4) Cardiomyopathy ICD Code: I42.9 - Cardiomyopathy, unspecified Diagnosis: Secondary (5) Cellulitis ICD Code: L03.90 - Cellulitis, unspecified Diagnosis: Secondary Status: Acute (6) Atrial fibrillation with RVR ICD Code: I48.91 - Unspecified atrial fibrillation Diagnosis: Secondary Status: Acute (7) Unspecified psychosis ICD Code: F29 - Unspecified psychosis not due to a substance or known physiological condition Diagnosis: Secondary (8) Asystole ICD Code: I46.9 - Cardiac arrest, cause unspecified (9) Compartment syndrome of lower extremity ICD Code: T79.A29A - Traumatic compartment syndrome of unspecified lower extremity, initial encounter Procedures 07/09-EGD 07/10-colonoscopy 07/13 asystolic cardiac arrest with ROSC in 10 mins Brief History This is a pleasant 62 y/o Male who complained of Shortness of breath, swelling on both legs, He denies cough, chest pain, abdominal pain, nausea or vomiting, fevers or chills, recent travel. He reports a history of "swollen about in the 1970s which limited by body for several years before I eventually killed with alcohol." Beyond that he reports a history of osteoporosis. He is a very poor historian. Per chart review the patient has been seen here in the past primarily for alcohol-related hallucinations, delirium tremens. He reports that he has not had any alcohol in the past few days-he believes that he had a bottle of wine just prior to eating a [employer] 3 days ago. He has no primary care physician. He has no other complaints at this time. seen in Emergency room in the presence of nurse, he is disheveled and very poor historian. CBC/BMP: 07/20/17 0610 07/20/17 0610 Significant Findings Laboratory Tests Test 07/18/17 04:00 07/20/17 06:10 Sodium Level 146 MEQ/L (136-145) Potassium Level 3.4 MEQ/L (3.5-5.1) Chloride Level 109 MEQ/L (98-107) 110 MEQ/L (98-107) White Blood Count 15.8 TH/MM3 (4.0-11.0) Red Blood Count 2.77 MIL/MM3 (4.50-5.90) Hemoglobin 7.7 GM/DL (13.0-17.0) Hematocrit 24.2 % (39.0-51.0) Mean Corpuscular Hemoglobin Concent 31.9 % (32.0-36.0) Red Cell Distribution Width 17.9 % (11.6-17.2) Neutrophils (%) (Auto) 85.5 % (16.0-70.0) Lymphocytes (%) (Auto) 4.6 % (9.0-44.0) Neutrophils # (Auto) 13.5 TH/MM3 (1.8-7.7) Lymphocytes # (Auto) 0.7 TH/MM3 (1.0-4.8) Monocytes # (Auto) 1.1 TH/MM3 (0-0.9) Fibrinogen 531 mg/dL (227-377) PE at Discharge GENERAL: Alert, NAD. Morbidly obese. SKIN: Warm and dry. HEAD: Normocephalic. EYES: No scleral icterus. No injection or drainage. NECK: Supple, trachea midline. No JVD or lymphadenopathy. CARDIOVASCULAR: Regular rate and rhythm without murmurs, gallops, or rubs. RESPIRATORY: Breath sounds equal bilaterally. No accessory muscle use. GASTROINTESTINAL: Abdomen soft, non-tender, obese abdomen. Bowel sounds positive. MUSCULOSKELETAL: No cyanosis, or edema. BACK: Nontender without obvious deformity. No CVA tenderness. Transfer Summary Patient tolerated extubation on 07/20/17 but remained largely incoherent and unresponsive. [facility] as [facility] after consultation with [employer]. Hospital Course [id number] with multiple medical problems. He was initially admitted to the hospital on 06/28/17 with a chief complaint of shortness of breath and swelling of both legs. The CAT scan of the chest revealed large pleural effusion on the right however patient was refusing thoracentesis. He was also diagnosed with a new onset of atrial fibrillation and has been on anticoagulation while in the hospital. He was also complaining of approximately two day history of increasing leg pain and swelling and significant bruising. His pain became unbearable and he was taken emergently to operating room. He underwent fasciotomy incision and drainage of right calf hematoma and postoperatively he was admitted to ICU intubated. His chest x-ray repeat showed significant worsening of pleural effusion, patient was difficult to ventilate with high peak pressures on the ventilator, also his blood pressure showed hemodynamic compromise. The emergent thoracentesis was performed in the ICU with drainage of 2.2 L off fluid. SUBJECTIVE: 07/07/17: Patient remains intubated sedated. On lightening sedation he becomes very agitated FiO2. Chest x-ray post thoracentesis shows significant improvement in right effusion. Intermittently hypotensive not on pressors. s/p Incision and drainage of right calf hematoma, compartment release anterior and lateral compartments right calf, VAC dressing. 07/08/17: No acute events overnight. The patient continues on Precedex infusion currently at 0.4mcgs/kg/hr, plan to wean Precedex off and provide Ativan when necessary for agitation. Hemoglobin notably 7.0 today type and screen ordered for plans for OR wound closure on 07/09/17. The patient continues with symptoms of paranoia, but cooperative this a.m. Plan for swallow study to initiate feed. 07/09: Patient's hemoglobin continued to decline yesterday to 6.4.. The patient was transfused with 2 units RBCs .Yesterday the patient had a large melanotic stool also hematuria. Coagulation studies obtained within normal limits. GI was consulted, plan for colonoscopy today. Overnight the urine has cleared, hematuria resolved. The patient has a condom catheter good urinary output. Patient continues to be wean off phenylephrine. Patient continues to have paranoia, bouts of confusion. 07/10: Yesterday the patient underwent I&D of the right calf and partial closure of the right calf wound, returned to ICU intubated and sedated placed on propofol and fentanyl infusion. The patient also underwent upper endoscopy, an attempted colonoscopy but was unsuccessful secondary to poor prep. The patient received GoLYTELY throughout the night via OGT with plans for repeat colonoscopy today. Hemodynamically the patient continues to be hypotensive, lisinopril placed on hold, carvedilol decreased dosage by half to 12.5 mg. Low- dose phenylephrine infusion continues at 50 mcgs. 07/11: Hemoglobin stable .The patient underwent colonoscopy yesterday afternoon which revealed multiple polyps in the ascending colon as well as one large colonic mass in the hepatic flexure measuring 3-4 cm issues for carcinoma. General surgery and oncology was consulted. CEA lab, colonic biopsy pending. Plan for CPAP trials this a.m. with plans for extubation. 07/12: No acute events overnight. The patient was successfully extubated yesterday afternoon. Plans for OT PT evaluation and out of bed to chair today. The patient currently A. fib beta blockers were being held secondary to hypotension, which has now resolved. Coreg has been reinstituted twice a day along with patient's lisinopril. The patient continues on Lasix 40 mg daily however secondary to hypotension , creatinine increased to 1.47->1.5 today. Psychiatry consulted for competency, and cognitive evaluation. Case management also consulted. Patient's hemoglobin dropped to 7.5 to be transfused with 1 unit packed cells today. 07/13: Patient found in asystole. Patient status post cardiac arrest with ROSC within 10 mins. Patient intubated, received 3 rounds of 1 mg epinephrine, 1 amp of sodium bicarbonate. EKG, stat labs pending. See CPR note. 07/14: Patient notably not moving air no chest excursion on the right. O2 saturation was 97%. Stat chest x-ray performed stat ABG obtained. Patient was noted on CTA last evening postcardiac arrest to have moderate right pleural effusions as well as the chest x-ray this a.m. showed mucus plugging with complete opacification of the right lung. Ultrasound evaluation at bedside was noted that the effusion was spread throughout some plan for IR CT-guided thoracentesis in the near future. Patient was placed on 100%, timeout was performed for bronchoscopy, O2 saturation 97, upon placing the bronchoscope into the endotracheal tube and viewing the lungs the patient notably precipitously desaturated, fiber-optic scope removed. Patient then became bradycardic-> asystole, 100% [id number] was provided at that time with subsequent cardiac arrest 1013. 1mg of epinephrine was given [id number] with 15 cm of PEEP provided, ROSC at 3 minutes. Repeat chest x-ray revealed a right lung open, and now left almost complete opacification. Patient was placed on 100% oxygen and a pressure control mode with high level of PEEP and Mucomyst. Planned repeat bronchoscopy later this afternoon pending on hemodynamic stability. Levophed infusion currently and Milrinone infusion added , EF 30-35%. 07/15: Remains critically ill after cardiopulmonary arrest yesterday. Maximum support in place. 07/16: No significant improvement. Opens eyes, ? tracks. 07/17: Improved gas exchange. Tapered off vasopressors. No improvement in neuro status. 07/18: Tolerates 15/5 SBT, but not less pressure support. 07/19: Still requiring increased pressure support for SBTs. 07/20: Patient meets criteria for extubation, strong respiratory effort on 8/5 cpap trial. Pt Condition on Discharge: Deteriorating Discharge Disposition: Hospice/Med Facility Discharge Instructions DIET: Follow Instructions for: As Tolerated, No Restrictions Activities you can perform: Regular-No Restrictions Lukas Jeff MD Jul 20, 2017 13:27
--- NOTE | 2017-07-20 18:13 | PD.CARD.PN ---
Subjective Subjective Remarks Extubated, comfortable Objective Vital Signs / I&O Vital Signs Date Time Temp Pulse Resp B/P (MAP) Pulse Ox O2 Delivery O2 Flow Rate FiO2 07/20/17 14:00 111 07/20/17 12:00 120 07/20/17 12:00 98.1 120 27 115/75 (88) 91 Arterial Line 07/20/17 10:00 114 07/20/17 09:45 95 Nasal Cannula 5.00 07/20/17 09:45 95 Nasal Cannula 5 07/20/17 08:54 40 07/20/17 08:53 100 40 07/20/17 08:00 99.2 114 18 151/96 (114) 95 07/20/17 08:00 114 07/20/17 08:00 40 07/20/17 07:41 93 40 07/20/17 07:00 98 Mechanical Ventilator 40 07/20/17 06:00 112 07/20/17 05:20 92 40 07/20/17 04:00 100 07/20/17 04:00 99.3 107 14 133/74 (93) 96 135/85 (102) 07/20/17 04:00 40 07/20/17 02:00 121 07/20/17 01:46 100 40 07/20/17 00:00 107 07/19/17 22:00 109 07/19/17 20:00 99.0 112 16 94/57 (69) 98 110/65 (80) 07/19/17 20:00 40 07/19/17 20:00 112 07/19/17 19:28 94 40 07/19/17 19:00 98 Mechanical Ventilator 40 I/O 07/19/17 07/19/17 07/19/17 07/20/17 07/20/17 07/20/17 07:00 15:00 23:00 07:00 15:00 23:00 Intake Total 639 ml 140 ml 585 ml 348 ml 80 ml 160 ml Output Total 550 ml 865 ml 900 ml 500 ml Balance 89 ml 140 ml -280 ml -552 ml 80 ml -340 ml IV Total 639 ml 585 ml 348 ml 80 ml 100 ml Other 140 ml 60 ml Output Urine Total 500 ml 675 ml 500 ml 500 ml Stool Total 50 ml 25 ml 0 ml 0 ml Gastric Drainage Total 0 ml 150 ml 300 ml 0 ml Drainage Total 0 ml 15 ml 100 ml 0 ml Physical Exam GENERAL: Extubated. SKIN: Warm and dry. HEAD: Normocephalic. EYES: No scleral icterus. No injection or drainage. NECK: Supple, trachea midline. No JVD or lymphadenopathy. CARDIOVASCULAR: Irreg, without murmurs, gallops, or rubs. RESPIRATORY: Few rhonchi, distant BS. GASTROINTESTINAL: Abdomen soft, obese MUSCULOSKELETAL: No cyanosis, LE dressed Laboratory Laboratory Tests Test 07/20/17 06:10 White Blood Count 15.8 TH/MM3 Red Blood Count 2.77 MIL/MM3 Hemoglobin 7.7 GM/DL Hematocrit 24.2 % Mean Corpuscular Volume 87.5 FL Mean Corpuscular Hemoglobin 27.9 PG Mean Corpuscular Hemoglobin Concent 31.9 % Red Cell Distribution Width 17.9 % Platelet Count 205 TH/MM3 Mean Platelet Volume 9.6 FL Neutrophils (%) (Auto) 85.5 % Lymphocytes (%) (Auto) 4.6 % Monocytes (%) (Auto) 6.9 % Eosinophils (%) (Auto) 2.7 % Basophils (%) (Auto) 0.3 % Neutrophils # (Auto) 13.5 TH/MM3 Lymphocytes # (Auto) 0.7 TH/MM3 Monocytes # (Auto) 1.1 TH/MM3 Eosinophils # (Auto) 0.4 TH/MM3 Basophils # (Auto) 0.0 TH/MM3 CBC Comment DIFF FINAL Differential Comment Prothrombin Time 10.8 SEC Prothromb Time International Ratio 1.0 RATIO Fibrinogen 531 mg/dL Blood Urea Nitrogen 10 MG/DL Creatinine 0.65 MG/DL Random Glucose 89 MG/DL Calcium Level 9.2 MG/DL Sodium Level 145 MEQ/L Potassium Level 3.9 MEQ/L Chloride Level 110 MEQ/L Carbon Dioxide Level 26.5 MEQ/L Anion Gap 9 MEQ/L Estimat Glomerular Filtration Rate 124 ML/MIN Assessment and Plan Problem List: (1) Acute respiratory failure ICD Codes: J96.00 - Acute respiratory failure, unspecified whether with hypoxia or hypercapnia (2) Morbid obesity ICD Codes: E66.01 - Morbid (severe) obesity due to excess calories (3) Atrial fibrillation with RVR ICD Codes: I48.91 - Unspecified atrial fibrillation Status: Acute (4) Cardiomyopathy ICD Codes: I42.9 - Cardiomyopathy, unspecified (5) Pleural effusion ICD Codes: J90 - Pleural effusion, not elsewhere classified Status: Acute (6) ETOH abuse ICD Codes: F10.10 - Alcohol abuse, uncomplicated Assessment and Plan Extubated, comfort care. Palliative care involved, hospice as well. Pt DNR/DNI. Extremely poor prognosis. Blair Krishnamurthy MD Jul 20, 2017 18:13
== END 2017-07-20 16:00 | disposition hospice, inpatient (51) | DRG 981 ==
LOC: NEPC 12:52 → NEDA 17:11 → NEDH 19:46 → HCIN 22:45 → N03B 07-06 19:20 → N03A 07-06 23:00
PROVIDERS: ADMIT Internal Medicine; ATTEND Anesthesiology
PROC: 0JCN0ZZ Extirpation of Matter from Right Lower Leg Subcutaneous Tissue and Fascia, Open Approach (ICD-10-PCS; 2017-07-06)
PROC: 0J8N0ZZ Division of Right Lower Leg Subcutaneous Tissue and Fascia, Open Approach (ICD-10-PCS; principal; 2017-07-06 17:25)
PROC: 0W993ZX Drainage of Right Pleural Cavity, Percutaneous Approach, Diagnostic (ICD-10-PCS; 2017-07-07)
PROC: 02HV33Z Insertion of Infusion Device into Superior Vena Cava, Percutaneous Approach (ICD-10-PCS; 2017-07-07)
PROC: 30233N1 Transfusion of Nonautologous Red Blood Cells into Peripheral Vein, Percutaneous Approach (ICD-10-PCS; 2017-07-07)
PROC: 0JQN0ZZ Repair Right Lower Leg Subcutaneous Tissue and Fascia, Open Approach (ICD-10-PCS; 2017-07-09)
PROC: 0HDKXZZ Extraction of Right Lower Leg Skin, External Approach (ICD-10-PCS; 2017-07-09)
PROC: 0DJ08ZZ Inspection of Upper Intestinal Tract, Via Natural or Artificial Opening Endoscopic (ICD-10-PCS; 2017-07-09)
PROC: 0DJD8ZZ Inspection of Lower Intestinal Tract, Via Natural or Artificial Opening Endoscopic (ICD-10-PCS; 2017-07-09)
PROC: 0DBK8ZX Excision of Ascending Colon, Via Natural or Artificial Opening Endoscopic, Diagnostic (ICD-10-PCS; 2017-07-10)
PROC: 0DBN8ZX Excision of Sigmoid Colon, Via Natural or Artificial Opening Endoscopic, Diagnostic (ICD-10-PCS; 2017-07-10)
PROC: 5A1955Z Respiratory Ventilation, Greater than 96 Consecutive Hours (ICD-10-PCS; 2017-07-13)
PROC: 0BH17EZ Insertion of Endotracheal Airway into Trachea, Via Natural or Artificial Opening (ICD-10-PCS; 2017-07-13)
PROC: 03HY32Z Insertion of Monitoring Device into Upper Artery, Percutaneous Approach (ICD-10-PCS; 2017-07-14)
PROC: 0BJ08ZZ Inspection of Tracheobronchial Tree, Via Natural or Artificial Opening Endoscopic (ICD-10-PCS; 2017-07-14)
DX: I48.91 Unspecified atrial fibrillation (principal); J96.01 Acute respiratory failure with hypoxia; M72.6 Necrotizing fasciitis; I50.21 Acute systolic (congestive) heart failure; G93.1 Anoxic brain damage, not elsewhere classified; J18.9 Pneumonia, unspecified organism; J90 Pleural effusion, not elsewhere classified; N17.9 Acute kidney failure, unspecified; C18.2 Malignant neoplasm of ascending colon; J44.0 Chronic obstructive pulmonary disease with (acute) lower respiratory infection; K92.0 Hematemesis; T17.890A Other foreign object in other parts of respiratory tract causing asphyxiation, initial encounter; M79.A21 Nontraumatic compartment syndrome of right lower extremity; D62 Acute posthemorrhagic anemia; Z68.41 Body mass index [BMI] 40.0-44.9, adult; E66.2 Morbid (severe) obesity with alveolar hypoventilation; K92.1 Melena; I27.20 Pulmonary hypertension, unspecified; I11.0 Hypertensive heart disease with heart failure; I42.9 Cardiomyopathy, unspecified; I25.10 Atherosclerotic heart disease of native coronary artery without angina pectoris; M81.0 Age-related osteoporosis without current pathological fracture; I46.9 Cardiac arrest, cause unspecified; R60.0 Localized edema; M79.81 Nontraumatic hematoma of soft tissue; I25.2 Old myocardial infarction; D12.5 Benign neoplasm of sigmoid colon; F29 Unspecified psychosis not due to a substance or known physiological condition; R31.0 Gross hematuria; F10.10 Alcohol abuse, uncomplicated; Z51.5 Encounter for palliative care; Z71.3 Dietary counseling and surveillance; Z87.891 Personal history of nicotine dependence; Z88.1 Allergy status to other antibiotic agents
CPT/HCPCS: 31500; 36430; 36556; 36600; 71010; 71275; 74177; 76882; 76937; 80048; 80053; 80162; 80307; 81001; 82140; 82150; 82272; 82378; 82550; 82805; 82945; 83605; 83615; 83690; 83735; 83880; 83986; 84100; 84132; 84157; 84443; 84484; 85007; 85014; 85018; 85025; 85027; 85379; 85384; 85610; 86850; 86900; 86901; 86920; 87015; 87040; 87070; 87086; 87102; 87116; 87205; 87206; 87449; 87641; 88112; 88305; 89051; 92950; 93005; 93306; 93970; 94002; 94003; 94150; 94640; 94664; 96365; 96368; 96375; 96376; C9113; J0131; J0171; J0330; J0690; J1580; J1644; J1650; J1940; J2060; J2185; J2250; J2260; J2270; J2370; J2405; J2543; J3010; J3370; J3411; J3480; J7030; J7040; J7050; J7060; J7120; J7608; J7644; P9016; P9047; Q9963; Q9967